=== PATIENT | female | born 1950 | race African-American/Black ===

== ENCOUNTER 2022-02-21 13:45 | Outpatient (CLI) | payer MEDICARE, SELFPAY | END 2022-02-21 13:46 | disposition home or self-care (01) | LOC: AMB 02-26 20:07 | PROVIDERS: Visit Provider Family Medicine | DX: R53.1 Weakness (principal) | CPT/HCPCS: A0998 ==

== ENCOUNTER 2022-03-02 09:55 | Outpatient (CLI) | payer MEDICARE, SELFPAY | END 2022-03-02 09:56 | disposition home or self-care (01) | LOC: AMB 03-03 08:47 | PROVIDERS: Visit Provider Emergency Medicine | DX: R53.1 Weakness (principal) | CPT/HCPCS: A0425; A0427 ==

== ENCOUNTER 2022-03-02 10:35 | Inpatient (IN) | payer MEDICARE, MEDICAID, SELFPAY ==
[2022-03-02] VITALS (21 sets, daily range): BP systolic 102–144; BP diastolic 66–115; PULSE 126–150; RESP 14–20; TEMP 36.8–36.9; O2SAT 92–100; BMI 51.5; BMI 58.2
--- NOTE | 2022-03-02 11:22 | ED.GENADULT ---
HPI - General Adult General Chief complaint: Weakness Stated complaint: Laying on floor for three days Time Seen by Provider: 03/02/22 11:13 History of Present Illness HPI narrative: This 71-year-old female comes in by ambulance. She states that she was sitting on the edge of her bed and accidentally slid out of the bed onto the floor. She did not have any injury. She states that this happened 3 days ago and since then was not able to get up. She was able to scoot around on the floor and today she decided herself to call the ambulance. She states that she had a similar circumstance about a week ago where she did call the ambulance and they helped her get up. She does not report any pain or injury. She states that as long as she is not on the floor she is able to carry out her normal activities of daily living. She lives in [place] in an apartment. She lives alone. She does not have any family around here but does have a friend her to. She did want to call anybody because she did not want to bother them. She does not have any complaints of pain or injury. She was unable to use the bathroom normally during these days of course so she soiled herself. She arrives with tachycardia and a rate around 140-150 beats per minute. She does not report any shortness of breath, lightheadedness, or chest pain. By nurse report she has not been to a doctor for about 20 years. Related Data Home Medications Medication Instructions Recorded Confirmed No Known Home Medications 03/02/22 03/02/22 Allergies Allergy/AdvReac Type Severity Reaction Status Date / Time No Known Drug Allergies Allergy Verified 03/02/22 11:08 Review of Systems Status of ROS: Reports: 10 or more systems reviewed and unremarkable except as noted in History and below Narrative: Constitutional: No fevers, no weight gain or loss. Eyes: No discharge. No vision changes. HENT: No congestion, no sore throat, no ear pain. Cardiovascular: No chest pain, no palpitations. Respiratory: No shortness of breath, no wheezes, no cough. Gastrointestinal: No abdominal pain, no vomiting, no diarrhea. Genitourinary: No dysuria, no hematuria. Musculoskeletal: Normal range of motion. Skin: No rashes, no pruritis. Neurological: No dizziness, weakness, sensory change, speech change. Endo/Heme/Allergies: No bruising or bleeding. No polydipsia. Pysch: no suicidality, no anxiety, no insomnia. All other systems reviewed and are negative. PFSH PFSH Social History Smoking Status: Never smoker Non-prescribed substance use: denies use Exam Narrative: Exam Narrative: Constitutional: Well-developed, well-nourished, no acute distress. HEENT: Normocephalic, atraumatic. Neck: Normal range of motion. Nontender. Supple. Heart: Regular. No murmurs. Tachycardia, rate 140-150 beats per minute. Intact distal pulses. Lungs: Clear to auscultation. No chest discomfort. No wheezes, rhonchi, or rales. Abdomen: Normal bowel sounds. Nontender. No rebound tenderness. Genitalia: Deferred. Back: No midline tenderness. Normal range of motion. Extremities: Normal range of motion. No injury. Bilateral pedal edema. Skin: Intact. No rash. Warm. No erythema or pallor. Neurologic: No altered sensation. No weakness. Alert and oriented. Psychiatric: No suicidality. No anxiety or depression. No insomnia. Nursing notes and vitals signs are reviewed. Const: Vital Signs, click to edit/add: Vital Signs - 24 hr 03/02/22 11:02 03/02/22 11:31 03/02/22 12:01 Temperature 98.5 F Pulse Rate 148 H 147 H Pulse Rate [Pulse Oximeter] 142 H Respiratory Rate 14 Blood Pressure 144/90 H 129/97 H Blood Pressure [Ri ght Forearm] 129/115 H Pulse Oximetry 98 Oxygen Delivery Me thod Room Air 03/02/22 12:28 03/02/22 12:30 03/02/22 12:31 Temperature Pulse Rate 150 H 143 H 148 H Pulse Rate [Pulse Oximeter] Respiratory Rate Blood Pressure 113/93 H Blood Pressure [Ri ght Forearm] Pulse Oximetry 95 98 98 Oxygen Delivery Me thod Course Vital Signs Vital signs: Initial Vital Signs Temperature 98.5 F 03/02/22 11:02 Temperature Source Temporal Artery Scan 03/02/22 11:02 Pulse Rate 142 H 03/02/22 11:02 Respiratory Rate 14 03/02/22 11:02 Blood Pressure 129/115 H 03/02/22 11:02 Blood Pressure Mean 119 03/02/22 11:02 Blood Pressure Position Supine 03/02/22 11:02 Pulse Oximetry 98 03/02/22 11:02 Oxygen Delivery Method 03/02/22 11:02 Vital Signs Temperature 98.5 F 03/02/22 11:02 Pulse Rate 142 H 03/02/22 11:02 Respiratory Rate 14 03/02/22 11:02 Blood Pressure 129/115 H 03/02/22 11:02 Pulse Oximetry 98 03/02/22 11:02 Oxygen Delivery Method 03/02/22 11:02 Temperature 98.5 F 03/02/22 11:02 Pulse Rate 148 H 03/02/22 12:31 Respiratory Rate 14 03/02/22 11:02 Blood Pressure 113/93 H 03/02/22 12:31 Pulse Oximetry 98 03/02/22 12:31 Oxygen Delivery Method 03/02/22 11:02 Medical Decision Making MDM Narrative Medical decision making narrative: This patient arrives by ambulance for evaluation of inability to get up and ambulate which she reports for the past 3 days. She slid to the floor and was unable to get up. She did screwed around on the floor and finally decided to call ambulance for assistance. She lives alone and states that her daily activities of living are properly maintained but she does not have enough strength to get up if she is on the floor. She arrives with tachycardia with a pulse around 140-150 beats per minute. Other vital signs are normal. She does not have any other complaints. An IV was established and labs were drawn. She received 20 mg of diltiazem which did not do anything to her rhythm. Later she received 6 mg followed by 12 mg of Adenocard. This temporarily slowed her rate to see more obvious atrial flutter with rapid ventricular response. She then received another dose of diltiazem 20 mg which again did not bring about any change in her rate. Lab results otherwise returned normal. There are few that are pending including magnesium and creatine kinase. She was able to move around by scooting on the floor in does not likely have the mechanism for rhabdomyolysis. Her renal function is intact. She is not a candidate for cardioversion as it is uncertain when her atrial flutter began. She did receive an oral dose of Eliquis and metoprolol 25 mg. I spoke with the hospitalist special education classroom aide, Dr. Mujica, who will arrange for admission into the hospital. Lab Data Labs: Lab Results 03/02/22 03/02/22 03/02/22 Range/Units 12:12 12:12 12:12 WBC 7.43 (4.50-11.00) K/uL RBC 5.18 (4.00-5.20) m/uL Hgb 13.8 (12.0-16.0) gm/dL Hct 44.2 (33.0-51.0) % MCV 85 (80-100) fL MCH 27 (26-34) pg MCHC 31 L (32-36) gm/dL RDW Coeff of Sal 14.4 (11.5-15.5) % Plt Count 176 (140-440) K/uL Neut % (Auto) 78.6 H (42.0-72.0) % Lymph % (Auto) 10.5 L (20-44) % [place] % (Auto) 10.4 (0.0-11.0) % Eos % (Auto) 0.3 (0.0-7.0) % Baso % (Auto) 0.1 (0.0-3.0) % Neut # (Auto) 5.80 (1.7-7.0) K/uL Lymph # (Auto) 0.80 L (0.90-2.90) K/uL [place] # (Auto) 0.80 (0.00-0.90) K/UL Eos # (Auto) 0.02 (0.00-0.50) K/uL Baso # (Auto) 0.01 (0.00-0.30) K/uL INR 1.21 H (0.91-1.10) Sodium 139 (135-149) mmol/L Potassium 5.2 H (3.6-5.1) mmol/L Chloride 103 (96-114) mmol/L Carbon Dioxide 27 (20-32) mmol/L BUN 16 (7-30) mg/dL Creatinine 0.8 (0.5-1.5) mg/dL Estimated Creat Clear 44.56 Estimated GFR 79 ml/min Glucose 92 (60-115) mg/dL Calcium 9.0 (8.4-10.6) mg/dL POC Troponin I (0.01-0.04) ng/ml 03/02/22 Range/Units 12:12 WBC (4.50-11.00) K/uL RBC (4.00-5.20) m/uL Hgb (12.0-16.0) gm/dL Hct (33.0-51.0) % MCV (80-100) fL MCH (26-34) pg MCHC (32-36) gm/dL RDW Coeff of Sal (11.5-15.5) % Plt Count (140-440) K/uL Neut % (Auto) (42.0-72.0) % Lymph % (Auto) (20-44) % [place] % (Auto) (0.0-11.0) % Eos % (Auto) (0.0-7.0) % Baso % (Auto) (0.0-3.0) % Neut # (Auto) (1.7-7.0) K/uL Lymph # (Auto) (0.90-2.90) K/uL [place] # (Auto) (0.00-0.90) K/UL Eos # (Auto) (0.00-0.50) K/uL Baso # (Auto) (0.00-0.30) K/uL INR (0.91-1.10) Sodium (135-149) mmol/L Potassium (3.6-5.1) mmol/L Chloride (96-114) mmol/L Carbon Dioxide (20-32) mmol/L BUN (7-30) mg/dL Creatinine (0.5-1.5) mg/dL Estimated Creat Clear Estimated GFR ml/min Glucose (60-115) mg/dL Calcium (8.4-10.6) mg/dL POC Troponin I 0.04 (0.01-0.04) ng/ml ECG Data Interpretation: Tachycardia due to atrial flutter or supraventricular tachycardia. Rate is 148 beats per minute. There are no specific ST or T-wave abnormalities. Discharge Plan Discharge Clinical Impression: Atrial flutter with rapid ventricular response Patient Disposition: Admitted As Inpatient Condition: Unchanged Prescriptions: No Action No Known Home Medications Follow Up/Referrals: Provider,Not a Local [Primary Care Provider] -
[2022-03-02] MEDS: dilTIAZem 5 MG/ML inj 20 MG IVP ×2 (11:49→12:52)
--- NOTE | 2022-03-02 12:01 | ED.NURSE ---
EMS IVF complete: 500mL normal saline.
--- NOTE | 2022-03-02 12:05 | ED.NURSE ---
Pt on vehicle monitor technician, cont pulse ox. VSS at this time. Afib/A flutter with RVR on monitor.
[2022-03-02] MEDS: ADENOSINE 6 MG/2ML INJ IVP (12:27)
[2022-03-02 12:32] LABS: Basophils Absolute Auto 0.01 K/uL (0.00-0.30); Basophils Percent Auto 0.1 % (0.0-3.0); Eosinophils Absolute Auto 0.02 K/uL (0.00-0.50); Eosinophils Percent Auto 0.3 % (0.0-7.0); Hematocrit 44.2 % (33.0-51.0); Hemoglobin* 13.8 gm/dL (12.0-16.0); Immature Granulocytes Abs Auto 0.01 K/uL (0.00-0.30); Immature Granulocytes Pct Auto 0.1 %; Lymphocytes Percent Auto 10.5 % (20-44); Mean Corpuscular HGB Conc 31 gm/dL (32-36); Mean Corpuscular Hemoglobin 27 pg (26-34); Mean Corpuscular Volume 85 fL (80-100); Monocytes Percent Auto 10.4 % (0.0-11.0); Neutrophils Percent Auto 78.6 % (42.0-72.0); Platelet Count* 176 K/uL (140-440); RDW Coefficient of Variation % 14.4 % (11.5-15.5); Red Blood Count 5.18 m/uL (4.00-5.20); White Blood Count* 7.43 K/uL (4.50-11.00)
[2022-03-02 12:33] LABS: Slide Review Reflex No
[2022-03-02] MEDS: ADENOSINE 6 MG/2ML INJ 12 MG IVP (12:33)
[2022-03-02 12:36] LABS: Troponin, Point-of-Care* 0.04 ng/ml (0.01-0.04)
[2022-03-02 12:44] LABS: Chloride* 103 mmol/L (96-114); Potassium* 5.2 mmol/L (3.6-5.1); Sodium* 139 mmol/L (135-149)
[2022-03-02 12:47] LABS: Blood Urea Nitrogen* 16 mg/dL (7-30); Carbon Dioxide* 27 mmol/L (20-32); Creatinine* 0.8 mg/dL (0.5-1.5); Est. Creatinine Clearance* 44.56; Estimated Glomerular Filt Rate 79 ml/min; Glucose* 92 mg/dL (60-115)
[2022-03-02 12:48] LABS: INR 1.21 (0.91-1.10)
--- NOTE | 2022-03-02 14:17 | W.PC.EDHO ---
Primary Language: Greek Preferred Language: Orientation Status: [X] Alert & Oriented [] Slight Confusion [] Known Dx Dementia Transfers By: [] Assist of 1 [] Assist of 2 [X] Lift Active Medications Discontinued Medications Generic Name Dose Route Start Last Admin Trade Name Niall PRN Reason Stop Dose Admin Adenosine 6 mg 03/02/22 12:03 03/02/22 12:27 Adenosine 6 Mg/2ml Inj IVP 03/02/22 12:04 6 mg ONCE ONE Administration Adenosine 12 mg 03/02/22 12:39 03/02/22 12:33 Adenosine 6 Mg/2ml Inj IVP 03/02/22 12:40 12 mg ONCE ONE Administration Diltiazem HCl 20 mg 03/02/22 11:18 03/02/22 11:49 Diltiazem 5 Mg/Ml Inj IVP 03/02/22 11:19 20 mg ONCE ONE Administration Diltiazem HCl 20 mg 03/02/22 12:39 03/02/22 12:52 Diltiazem 5 Mg/Ml Inj IVP 03/02/22 12:40 20 mg ONCE ONE Administration Sodium Chloride 500 mls @ 500 mls/hr 03/02/22 11:18 03/02/22 11:49 0.9 % Sodium Chloride 500 Ml IV 03/02/22 12:17 Not Given .Q1H ONE Description of Symptoms ED Triage Present Problem Pt slid from bed to floor, on floor x3 days, Description covered in feces. A + o x4. Lives in independent apt [place]. Numerous sores on back side. Has not been to doctor in 20 years. Stephanie Coma Scale [place] coma scale total score 15 IV Insertion/Site Date of IV Line Insertion [ 03/02/22 Left Hand] Oxygen Administration Pulse Oximetry 98 Pulse Oximetry 98 Pulse Oximetry 95 Pulse Oximetry 98 Oxygen Delivery Method Room Air Cardiac Monitoring EKG Method 12 Lead EKG Method 12 Lead
--- NOTE | 2022-03-02 14:18 | ED.NURSE ---
Numerous open, weeping wounds on sacrum, in folds, back of thighs, lower back. Oozing copious serousanguinous drainage from wounds.
[2022-03-02 14:21] LABS: SARS PCR* Negative SARS-CoV-2 (Negative)
[2022-03-02] MEDS: METOPROLOL TARTRATE 25 MG TABLET PO (14:30)
[2022-03-02] MEDS: APIXABAN 5 MG TABLET 10 MG PO (14:30)
--- NOTE | 2022-03-02 14:50 | ED.NURSE ---
Meal tray ordered, okay to eat per Dr. Moore.
--- NOTE | 2022-03-02 16:11 | ED.NURSE ---
Report given to SHARON Bonilla. Pt will go to [facility]. Telebox #[id number].
--- NOTE | 2022-03-02 16:20 | PM.IMHP1 ---
Hospitalist- H&P: HPI History of Present Illness Time Seen by Provider: 15:30 Date Seen: 03/02/22 Chief complaint: Laying on floor for three days Narrative: Emily Gonzalez is a 71 year old woman who presents via EMS for assessment after having been on the floor of her home for the past 3 days. Patient lives alone in her home. Does have homemaker who helps her. Has had longstanding evolving weakness such that it is difficult for her to get up if she is on the floor. About 5 years ago she fell to the floor and was unable to get up without help. This past week she has had 2 such falls, unable to get up without help. EMS helped her up the 1st time. She did not seek additional medical attention at that time. The 2nd time this happened she did not seek help but when her home health travel ot came in this morning her home health travel ot talked her into coming in for further assessment. Ambulance was summoned. She was brought in. Patient states that the 2 episodes she had within the last week warrant really falls. For the 1st episode, she slid off the edge of the sofa to the floor. For the 2nd episode, she slid off the edge of the bed to the floor. In both instances she had no other injury. Denies striking any part of her body other than landing on her buttock. Had no loss of consciousness. Had no syncope or near syncope. For the current episode she opted to not bother anyone and thus she excluded herself along the floor in her home for 3 days until her home health travel ot came in. She states she was unable to get to the toilet and thus she eliminated in her clothing. Denies any associated symptoms such as chest heaviness, pressure, tightness, or pain. Denies dyspnea at rest, paroxysmal nocturnal dyspnea, or orthopnea. Has baseline dyspnea with exertion which is no different than usual. Has noted over the last couple of weeks a sense of more swelling in her feet and ankles. Denies cough. Denies fevers, rigors, diaphoresis. Denies palpitations or chest fluttering. Review of Systems Status of ROS: Reports: 10 or more systems reviewed and unremarkable except as noted in History and below Narrative: Has not sought medical attention for more than 30 years. She is retired. Does not have a lot of social contacts. Has no family members whom she is in touch with. Has had no children. Interacts with her home health travel ot whom she considers her friend. Her home makers name is Rahel Walsh, cell phone [phone]. Patient designates Rahel as her power of live truck technician for health should that be required. Patient states that should she have car demise she would like us to try to resuscitate her, but not force the issue should she not be responsive. Additionally she states unequivocally that she does not want to be kept alive in a persistent vegetative state. Acknowledges waking up in the day, mostly reading and making time to go to the bathroom and make her cell something to eat. She has not been taking care of her home care. Does have a homemaker does this for her. slat basket maker helper machine also does her shopping for her. Satisfied with bowel and bladder elimination. Denies having chronic wounds. Generally able to walk around the house as much as she wants to. Has dyspnea with exertion. Denies dysuria, urgency, frequency, hematuria. Denies diarrhea or constipation. Has had no trauma, injury, or blood loss. No travel. [facility] Medical History Lymphedema associated with obesity Obesity Weakness generalized Social History Smoking Status: Never smoker Non-prescribed substance use: denies use Meds Home Medications and Allergies Home Medications Medication Instructions Recorded Confirmed Type No Known Home Medications 03/02/22 03/02/22 History Allergies Allergy/AdvReac Type Severity Reaction Status Date / Time No Known Drug Allergies Allergy Verified 03/02/22 11:08 Exam Narrative: Exam Narrative: Friendly, cooperative. Articulate. Alert, oriented to self, place, time. Does not seem particularly concerned about the events of the last few days. This is concerning. Vision and hearing are preserved grossly. Dentition in fair repair. Dry buccal mucosa. Neck is supple. No JVD hepatojugular reflux. Midline trachea. No lymphadenopathy in the pre or postauricular chains, anterior-posterior cervical chains, supra or infraclavicular fossa, submandibular or submental fossa, or axilla bilaterally. Lungs clear to auscultation. No wheezing, rhonchi, or rales. No CVA tenderness. She declines lung me to see her buttock at this time. Will try again. Heart tones with tachycardia. Distant tones. Obese abdomen. Has panniculus. Active bowel sounds. Soft, nontender. Lymphedema of thighs bilaterally. Edema of feet and pretibial area. Palpable pulses upper and lower extremities. Aside from generalized weakness, no focal motor deficits. Const: Vital Signs, click to edit/add: Vital Signs - 24 hr 03/02/22 11:02 03/02/22 11:31 03/02/22 12:01 Temperature 98.5 F Pulse Rate 148 H 147 H Pulse Rate [Pulse Oximeter] 142 H Respiratory Rate 14 Blood Pressure 144/90 H 129/97 H Blood Pressure [Ri ght Forearm] 129/115 H Pulse Oximetry 98 Oxygen Delivery Me thod Room Air 03/02/22 12:28 03/02/22 12:30 03/02/22 12:31 Temperature Pulse Rate 150 H 143 H 148 H Pulse Rate [Pulse Oximeter] Respiratory Rate Blood Pressure 113/93 H Blood Pressure [Ri ght Forearm] Pulse Oximetry 95 98 98 Oxygen Delivery Me thod 03/02/22 12:32 03/02/22 13:00 03/02/22 13:01 Temperature Pulse Rate 148 H 147 H 142 H Pulse Rate [Pulse Oximeter] Respiratory Rate Blood Pressure 130/83 Blood Pressure [Ri ght Forearm] Pulse Oximetry 96 100 94 Oxygen Delivery La thod 03/02/22 13:31 03/02/22 14:07 03/02/22 14:30 Temperature Pulse Rate 145 H 148 H 136 H Pulse Rate [Pulse Oximeter] Respiratory Rate Blood Pressure 137/86 124/88 Blood Pressure [Ri ght Forearm] Pulse Oximetry 100 97 94 Oxygen Delivery Me thod 03/02/22 14:32 03/02/22 14:33 03/02/22 15:00 Temperature Pulse Rate 150 H 149 H 146 H Pulse Rate [Pulse Oximeter] Respiratory Rate Blood Pressure 126/96 H Blood Pressure [Ri ght Forearm] Pulse Oximetry 94 100 98 Oxygen Delivery Me thod Documenting provider has reviewed patient's vital signs: yes Hospitalist - H&P: Result Labs Labs: Short CBC 03/02/22 Range/Units 12:12 WBC 7.43 (4.50-11.00) K/uL Hgb 13.8 (12.0-16.0) gm/dL Hct 44.2 (33.0-51.0) % Plt Count 176 (140-440) K/uL [facility] 03/02/22 12:12 Sodium 139 Potassium 5.2 H Chloride 103 Carbon Dioxide 27 BUN 16 Creatinine 0.8 Glucose 92 Calcium 9.0 Assessment and Plan Assessment and plan (1) Fall: Status: Acute (2) Weakness generalized: Status: Acute (3) Self neglect: Status: Acute (4) Pressure ulcer of buttock: Status: Acute (5) Incontinence associated dermatitis: Status: Acute (6) Atrial flutter with rapid ventricular response: Status: Acute Assessment and Plan: 1. Check TSH and BNP. Also check LFTs and other labs. 2. Diltiazem IV drip. Oral metoprolol. Oral digoxin. Consider amiodarone drip. Continue with apixaban anticoagulation therapy. In time may need to consider radiofrequency ablation depending on her response. 3. Telemetry, serial troponin I's. 4. Will reassess wounds. Will consult General surgery to assist with assessment and management of wounds as well. 5. Offloading efforts including alternating pressure mattress 6. PT, OT consultation. 7. supervisor customer services to assist. Anticipate she will need transitional care services for a period of time beyond hospitalization. 8. Admit to inpatient service. 9. Answered patient's questions to her satisfaction. Patient agreeable. (7) Lymphedema associated with obesity: Status: Acute (8) Obesity: Status: Acute
[2022-03-02 16:34] LABS: Creatine Kinase* 52 U/L (41-117); Magnesium* 1.8 mg/dL (1.5-2.6)
[2022-03-02 17:14] LABS: C Reactive Protein* 8.9 mg/dL (0.5-1.0)
[2022-03-02 17:33] LABS: Albumin* 3.1 g/dL (3.3-5.0)
[2022-03-02 17:36] LABS: Alanine Aminotransferase* 32 U/L (4-35); Alkaline Phosphatase* 56 U/L (40-150); Aspartate Amino Transferase* 25 U/L (12-35); Bilirubin Direct* 0.4 mg/dL (0.0-0.5); Bilirubin Total* 0.9 mg/dL (0.1-1.5); Magnesium* 1.8 mg/dL (1.5-2.6); Phosphorus* 2.9 mg/dL (2.5-4.5); Total Protein* 6.8 g/dL (6.0-8.3)
[2022-03-02 17:38] LABS: Hemoglobin A1C* 5.35 % (0-5.6)
[2022-03-02] MEDS: METOPROLOL TARTRATE 25 MG TABLET 12.5 MG PO ×2 (17:46→22:20)
[2022-03-02 17:47] LABS: Troponin I* 0.03 ng/mL (0.01-0.04)
[2022-03-02 17:48] LABS: NT Pro B Type NatriureticPept* 1850 pg/mL
[2022-03-02] MEDS: dilTIAZem HCL 125 MG in 0.9 % SODIUM CHLORIDE 100 ml 100 ML IVPB (18:00)
[2022-03-02] MEDS: SODIUM CHLORIDE 0.9 % (FLUSH) 10 ML SYRINGE 5 ML IVF (18:02)
[2022-03-02] MEDS: DIGOXIN 250 MCG TABLET PO (18:53)
--- NOTE | 2022-03-02 19:20 | PC.NURSE ---
Pt up to floor asking to use commode. Heavy assist of 3 with pivot transfer used. Suggest use of ceiling lift for all transfers due to patients weakness and inability to help in repositioning. Pt denies chest pain, SOB, or feeling of racing heart. Telemetry shows HR in 140's. See MAR for medication administration. Acute and chronic wounds to buttocks. Consult to general surgery for 03/03/22; NPO at midnight.
[2022-03-02] MEDS: APIXABAN 5 MG TABLET PO (22:20)
[2022-03-02 23:33] LABS: HCO3 VBG 31 mmol/L (21-28); PCO2 VBG 45 mmHG (40-50); PO2 VBG 47.6 mmHG (25-47); pH VBG 7.449 (7.32-7.43)
[2022-03-03] VITALS (11 sets, daily range): BP systolic 99–138; BP diastolic 59–74; PULSE 71–138; RESP 18–20; TEMP 36.6–37; O2SAT 91–95; BMI 58.1
[2022-03-03] MEDS: 0.9 % SODIUM CHLORIDE 250 ml IV ×2 (00:50→18:04)
[2022-03-03] MEDS: PIPERACILLIN/TAZOBACTAM 3.375 GM in 0.9 % SODIUM CHLORIDE Mini-bag 100 ML IVPB ×4 (00:51→18:59)
[2022-03-03] MEDS: DIGOXIN 250 MCG TABLET PO ×3 (02:06→12:51)
[2022-03-03] MEDS: ACETAMINOPHEN 325 MG TABLET 650 MG PO (02:06)
[2022-03-03] MEDS: 0.9 % SODIUM CHLORIDE 500 ML 500 ML IV (02:07)
[2022-03-03 05:06] LABS: Appearance Urine Cloudy (Clear); Bilirubin Urine 1+ (Negative); Blood Urine 3+ (Negative); Color Urine Yellow (Yellow); Glucose Urine Negative (Negative); Ketones Urine Trace (Negative); Leukocyte Esterase Urine Trace (Negative); Nitrite Urine Negative (Negative); Protein Urine Trace (Negative); Specific Gravity Urine 1.015 (1.000-1.030)
[2022-03-03 05:15] LABS: Bacteria Urine Few; Squamous Epithelial Cell Urine Few (None-Few)
[2022-03-03] MEDS: dilTIAZem HCL 125 MG in 0.9 % SODIUM CHLORIDE 100 ml 100 ML 10 MG IVPB ×2 (05:27→18:04)
[2022-03-03] MEDS: METOPROLOL TARTRATE 25 MG TABLET 12.5 MG PO ×2 (05:49→10:45)
--- NOTE | 2022-03-03 06:46 | PC.NURSE ---
Shift note: Wound cleansing performed and irrigated with normal saline, surrounding tissue cleaned with soap and water. Lower extremities oozing fluids and some blood, soaking pads placed under those areas, wounds are open to air. Assist in bed of 3 minimum. Ghosh cath placed, is intact and draining. Pt is afebrile, HR down to 70-80bpm this morning from 140ies in PM. Pt is continue on Dilt drip
[2022-03-03 07:05] LABS: Hematocrit 40.6 % (33.0-51.0); Hemoglobin* 12.7 gm/dL (12.0-16.0); Mean Corpuscular HGB Conc 31 gm/dL (32-36); Mean Corpuscular Hemoglobin 27 pg (26-34); Mean Corpuscular Volume 85 fL (80-100); Platelet Count* 177 K/uL (140-440); White Blood Count* 6.13 K/uL (4.50-11.00)
[2022-03-03 07:06] LABS: Slide Review Reflex No
[2022-03-03 07:17] LABS: Chloride* 107 mmol/L (96-114); Potassium* 3.5 mmol/L (3.6-5.1); Sodium* 139 mmol/L (135-149)
[2022-03-03 07:20] LABS: Creatinine* 0.8 mg/dL (0.5-1.5); Est. Creatinine Clearance* 44.56; Estimated Glomerular Filt Rate 79 ml/min
[2022-03-03 07:21] LABS: Blood Urea Nitrogen* 15 mg/dL (7-30); Calcium* 8.3 mg/dL (8.4-10.6); Carbon Dioxide* 31 mmol/L (20-32); Glucose* 112 mg/dL (60-115); HDL Cholesterol* 26 mg/dL (>=50); Triglycerides* 90 mg/dL (40-149)
[2022-03-03 07:23] LABS: C Reactive Protein* 8.8 mg/dL (0.5-1.0)
--- NOTE | 2022-03-03 07:39 | P.IMPN_ITS ---
Progress Note: A&P Assessment and plan (1) Atrial flutter with rapid ventricular response: Problem details: - transitioning to digoxin and metoprolol from diltiazem GTT - TTE today Status: Acute (2) Fall: Status: Acute (3) Weakness generalized: Problem details: - PT and OT following Status: Acute (4) Pressure ulcer of buttock: Problem details: - General surgery following Status: Acute (5) Incontinence associated dermatitis: Status: Acute Plan - per above - Eliquis for prophylaxis; on hold given General Surgery intervention - may require TCU stay pending evaluations by PT and OT Subjective Date Seen: 03/03/22 Interval history: No acute events overnight. Patient tolerated oral Dig Q6 in addition to tapering Diltiazem gtt. Her heart rate is currently controlled and she denies chest pain or dyspnea. Dr. Rice from General surgery will be seeing patient today given her buttock wounds. Exam Narrative: Exam Narrative: GEN: Alert and oriented, laying comfortably in bed and answering questions appropriately HEENT: EOMIs bilaterally, no scleral icterus CV: Rate controlled atrial fibrillation R: LCTA bilaterally without concerning wheezing, air movement adequate Ext: Edema of extremities noted Skin: Skin wounds not formally examined (patient seen by General surgery this morning for bedside I&D, movement has been quite painful). Neuro: No focal deficits Psych: Appropriate Const: Vital Signs, click to edit/add: Vital Signs - 24 hr 03/02/22 11:02 03/02/22 11:31 03/02/22 12:01 Temperature 98.5 F Pulse Rate 148 H 147 H Pulse Rate [Pulse Oximeter] 142 H Respiratory Rate 14 Blood Pressure 144/90 H 129/97 H Blood Pressure [Le ft Arm] Blood Pressure [Ri ght Forearm] 129/115 H Pulse Oximetry 98 Oxygen Delivery Me thod Room Air 03/02/22 12:28 03/02/22 12:30 03/02/22 12:31 Temperature Pulse Rate 150 H 143 H 148 H Pulse Rate [Pulse Oximeter] Respiratory Rate Blood Pressure 113/93 H Blood Pressure [Le ft Arm] Blood Pressure [Ri ght Forearm] Pulse Oximetry 95 98 98 Oxygen Delivery Me [facility] 03/02/22 12:32 03/02/22 13:00 03/02/22 13:01 Temperature Pulse Rate 148 H 147 H 142 H Pulse Rate [Pulse Oximeter] Respiratory Rate Blood Pressure 130/83 Blood Pressure [Le ft Arm] Blood Pressure [Ri ght Forearm] Pulse Oximetry 96 100 [facility] 13:31 03/02/22 14:07 03/02/22 14:30 Temperature Pulse Rate 145 H 148 H 136 H Pulse Rate [Pulse Oximeter] Respiratory Rate Blood Pressure 137/86 124/88 Blood Pressure [Le ft Arm] Blood Pressure [Ri ght Forearm] Pulse Oximetry 100 97 94 [facility] 03/02/22 14:32 03/02/22 14:33 03/02/22 15:00 Temperature Pulse Rate 150 H 149 H 146 H Pulse Rate [Pulse Oximeter] Respiratory Rate Blood Pressure 126/96 H Blood Pressure [Le ft Arm] Blood Pressure [Ri ght Forearm] Pulse Oximetry 94 100 98 Oxygen Delivery [facility] 03/02/22 16:20 03/02/22 17:00 03/02/22 17:00 Temperature 98.5 F 98.3 F Pulse Rate 141 H Pulse Rate [Pulse Oximeter] 142 H 142 H Respiratory Rate 18 20 Blood Pressure Blood Pressure [Le ft Arm] 114/67 Blood Pressure [Ri ght Forearm] 126/96 H Pulse Oximetry 93 Oxygen Delivery [facility] Room Air 03/02/22 18:00 03/02/22 18:53 03/02/22 19:30 Temperature 98.3 F Pulse Rate 150 H Pulse Rate [Pulse Oximeter] 142 H Respiratory Rate 18 Blood Pressure Blood Pressure [Le ft Arm] 118/72 Blood Pressure [Ri ght Forearm] Pulse Oximetry 93 92 Oxygen Delivery [facility] Room Air Room Air 03/02/22 23:00 03/02/22 23:00 03/02/22 23:00 Temperature 98.4 F Pulse Rate 133 H Pulse Rate [Pulse Oximeter] 126 H Respiratory Rate 20 Blood Pressure Blood Pressure [Le ft Arm] 102/66 Blood Pressure [Ri ght Forearm] Pulse Oximetry 94 94 Oxygen Delivery [facility] Room Air Room Air 03/03/22 00:21 03/03/22 02:06 03/03/22 04:00 Temperature 98.2 F Pulse Rate 113 H Pulse Rate [Pulse Oximeter] 88 71 Respiratory Rate 20 18 Blood Pressure Blood Pressure [Le ft Arm] 99/61 115/74 Blood Pressure [Ri ght Forearm] Pulse Oximetry 91 Oxygen Delivery Me [facility] Room Air 03/03/22 07:26 Temperature Pulse Rate 111 H Pulse Rate [Pulse Oximeter] Respiratory Rate Blood Pressure Blood Pressure [Le ft Arm] Blood Pressure [Ri ght Forearm] Pulse Oximetry Oxygen Delivery Me thod Labs Labs: Laboratory Results - last 24 hr 03/02/22 03/02/22 03/02/22 11:54 12:12 12:12 WBC 7.43 RBC 5.18 Hgb 13.8 Hct 44.2 MCV 85 MCH 27 MCHC 31 L RDW Coeff of Sal 14.4 Plt Count 176 Neut % (Auto) 78.6 H Lymph % (Auto) 10.5 L [place] % (Auto) 10.4 Eos % (Auto) 0.3 Baso % (Auto) 0.1 Neut # (Auto) 5.80 Lymph # (Auto) 0.80 L [place] # (Auto) 0.80 Eos # (Auto) 0.02 Baso # (Auto) 0.01 INR VBG pH VBG pCO2 VBG pO2 VBG HCO3 Sodium 139 Potassium 5.2 H Chloride 103 Carbon Dioxide 27 BUN 16 Creatinine 0.8 Estimated Creat Clear 44.56 Estimated GFR 79 Glucose 92 Hemoglobin A1c Calcium 9.0 Phosphorus Magnesium 1.8 Total Bilirubin Direct Bilirubin AST ALT Alkaline Phosphatase Total Creatine Kinase 52 Troponin I C-Reactive Protein 8.9 H NT-Pro-B Natriuret Pep Total Protein Albumin Triglycerides HDL Cholesterol TSH Urine Color Urine Appearance Urine pH Ur Specific [place] Urine Protein Urine Glucose (UA) Urine Ketones Urine Blood Urine Nitrite Urine Bilirubin Urine Urobilinogen Ur Leukocyte Esterase Urine RBC Urine WBC Ur Squamous Epith Cells Urine Bacteria SARS-CoV-2 (PCR) Negative SARS-CoV-2 POC Troponin I 03/02/22 03/02/22 03/02/22 12:12 12:12 17:07 WBC RBC Hgb Hct MCV MCH MCHC RDW Coeff of Sal Plt Count Neut % (Auto) Lymph % (Auto) [place] % (Auto) Eos % (Auto) Baso % (Auto) Neut # (Auto) Lymph # (Auto) [place] # (Auto) Eos # (Auto) Baso # (Auto) INR 1.21 H VBG pH VBG pCO2 VBG pO2 VBG HCO3 Sodium Potassium Chloride Carbon Dioxide BUN Creatinine Estimated Creat Clear Estimated GFR Glucose Hemoglobin A1c Calcium Phosphorus 2.9 Magnesium Total Bilirubin 0.9 Direct Bilirubin 0.4 AST 25 ALT 32 Alkaline Phosphatase 56 Total Creatine Kinase Troponin I C-Reactive Protein NT-Pro-B Natriuret Pep Total Protein 6.8 Albumin 3.1 L Triglycerides HDL Cholesterol TSH Urine Color Urine Appearance Urine pH Ur Specific [place] Urine Protein Urine Glucose (UA) Urine Ketones Urine Blood Urine Nitrite Urine Bilirubin Urine Urobilinogen Ur Leukocyte Esterase Urine RBC Urine WBC Ur Squamous Epith Cells Urine Bacteria SARS-CoV-2 (PCR) POC Troponin I 0.04 03/02/22 03/02/22 03/02/22 17:07 17:07 17:07 WBC RBC Hgb Hct MCV MCH MCHC RDW Coeff of Sal Plt Count Neut % (Auto) Lymph % (Auto) [place] % (Auto) Eos % (Auto) Baso % (Auto) Neut # (Auto) Lymph # (Auto) [place] # (Auto) Eos # (Auto) Baso # (Auto) INR VBG pH VBG pCO2 VBG pO2 VBG HCO3 Sodium Potassium Chloride Carbon Dioxide BUN Creatinine Estimated Creat Clear Estimated GFR Glucose Hemoglobin A1c 5.35 Calcium Phosphorus Magnesium 1.8 Total Bilirubin Direct Bilirubin AST ALT Alkaline Phosphatase Total Creatine Kinase Troponin I 0.03 C-Reactive Protein NT-Pro-B Natriuret Pep 1850 Total Protein Albumin Triglycerides HDL Cholesterol TSH 3.070 Urine Color Urine Appearance Urine pH Ur Specific [place] Urine Protein Urine Glucose (UA) Urine Ketones Urine Blood Urine Nitrite Urine Bilirubin Urine Urobilinogen Ur Leukocyte Esterase Urine RBC Urine WBC Ur Squamous Epith Cells Urine Bacteria SARS-CoV-2 (PCR) POC Troponin I 03/02/22 03/03/22 03/03/22 23:25 04:00 06:38 WBC RBC Hgb Hct MCV MCH MCHC RDW Coeff of Sal Plt Count Neut % (Auto) Lymph % (Auto) [place] % (Auto) Eos % (Auto) Baso % (Auto) Neut # (Auto) Lymph # (Auto) [place] # (Auto) Eos # (Auto) Baso # (Auto) INR VBG pH 7.449 H VBG pCO2 45 VBG pO2 47.6 H VBG HCO3 31 H Sodium 139 Potassium 3.5 L Chloride 107 Carbon Dioxide 31 BUN 15 Creatinine 0.8 Estimated Creat Clear 44.56 Estimated GFR 79 Glucose 112 Hemoglobin A1c Calcium 8.3 L Phosphorus Magnesium Total Bilirubin Direct Bilirubin AST ALT Alkaline Phosphatase Total Creatine Kinase Troponin I C-Reactive Protein 8.8 H NT-Pro-B Natriuret Pep Total Protein Albumin Triglycerides 90 HDL Cholesterol 26 L TSH Urine Color Yellow Urine Appearance Cloudy A Urine pH 6.0 Ur Specific [place] 1.015 Urine Protein Trace A Urine Glucose (UA) Negative Urine Ketones Trace A Urine Blood 3+ A Urine Nitrite Negative Urine Bilirubin 1+ A Urine Urobilinogen 2.0 A Ur Leukocyte Esterase Trace A Urine RBC 5-10 A Urine WBC 2-5 Ur Squamous Epith Cells Few Urine Bacteria Few A SARS-CoV-2 (PCR) POC Troponin I 03/03/22 06:38 WBC 6.13 RBC 4.80 Hgb 12.7 Hct 40.6 MCV 85 MCH 27 MCHC 31 L RDW Coeff of Sal Plt Count 177 Neut % (Auto) Lymph % (Auto) [place] % (Auto) Eos % (Auto) Baso % (Auto) Neut # (Auto) Lymph # (Auto) [place] # (Auto) Eos # (Auto) Baso # (Auto) INR VBG pH VBG pCO2 VBG pO2 VBG HCO3 Sodium Potassium Chloride Carbon Dioxide BUN Creatinine Estimated Creat Clear Estimated GFR Glucose Hemoglobin A1c Calcium Phosphorus Magnesium Total Bilirubin Direct Bilirubin AST ALT Alkaline Phosphatase Total Creatine Kinase Troponin I C-Reactive Protein NT-Pro-B Natriuret Pep Total Protein Albumin Triglycerides HDL Cholesterol TSH Urine Color Urine Appearance Urine pH Ur Specific [place] Urine Protein Urine Glucose (UA) Urine Ketones Urine Blood Urine Nitrite Urine Bilirubin Urine Urobilinogen Ur Leukocyte Esterase Urine RBC Urine WBC Ur Squamous Epith Cells Urine Bacteria SARS-CoV-2 (PCR) POC Troponin I
[2022-03-03] MEDS: ACETAMINOPHEN 325 MG TABLET 975 MG PO ×2 (08:43→23:30)
[2022-03-03] MEDS: SODIUM CHLORIDE 0.9 % (FLUSH) 10 ML SYRINGE 5 ML IVF ×2 (08:45→23:32)
[2022-03-03] MEDS: lidocaine HCL 2 % JELLY (TOP) STERILE 6 ML TOPICAL (09:20)
--- NOTE | 2022-03-03 09:42 | P.GSCN_ITS ---
History of Present Illness Consult details Date Seen: 03/03/22 Consult date: 03/03/22 Narrative: Patient is a very anneliese 71-year-old female, who was brought into the emergency department after falling and being on the floor for home for the past 3 days. She does live alone and reports that over the last week she has been getting progressively weaker. She also suffers from morbid obesity. She has had falls in the past, but this was the 1st time that she was unable to get back up. She does admit to incontinence of urine and stool during that time. Yesterday it was noted during her admission that she had decubitus ulcers of right and left buttock. She does report pain to this area yesterday, although this has improved since her admission. No fevers or chills overnight. No other concerns. She does not see any doctor regularly. She was started on Eliquis for a diagnosis of atrial flutter. Her atrial flutter is currently being controlled on a diltiazem drip. Review of Systems Status of ROS: Reports: 6 or more systems reviewed and unremarkable except as noted in History and below [facility] Medical History Lymphedema associated with obesity Obesity Weakness generalized Social History Highest level of school completed/degree received: some college, no degree Smoking Status: Never smoker Do you use any of these nicotine containing products: None Second hand tobacco smoke exposure: No How often do you have a drink containing alcohol: monthly or less Alcohol type details: no alcohol for past 5 years; daily drinker for 2 years before that AUDIT-C Alcohol total score: 1 Non-prescribed substance use: denies use Caffeine: Yes (2 cups of coffee daily) service: No Meds Home Medications and Allergies Home Medications Medication Instructions Recorded Confirmed Type No Known Home Medications 03/02/22 03/02/22 History Allergies Allergy/AdvReac Type Severity Reaction Status Date / Time No Known Drug Allergies Allergy Verified 03/02/22 11:08 Exam Narrative: Exam Narrative: General: Alert and oriented, no acute distress. Morbid obesity lying in bed comfortably. Respiratory: Equal breath rise bilaterally, maintained on room air CV: Irregularly irregular, rate regular Genitourinary: Ghosh catheter in place. On the left buttock localized area of scattered stage II ulceration. Right buttock with larger area, measuring approximately 7 x 10 cm stage III full-thickness ulceration with overlying eschar. Some foul smell to the tissue. The central aspect does extend deeper into subcutaneous tissue. No undrained pockets of fluid and no significant damaso neling appreciated. The area is painful for the patient during debridement at bedside. Const: Vital Signs, click to edit/add: Vital Signs - 24 hr 03/02/22 11:02 03/02/22 11:31 03/02/22 12:01 Temperature 98.5 F Pulse Rate 148 H 147 H Pulse Rate [Pulse Oximeter] 142 H Respiratory Rate 14 Blood Pressure 144/90 H 129/97 H Blood Pressure [Le ft Arm] Blood Pressure [Ri ght Forearm] 129/115 H Pulse Oximetry 98 [facility] 03/02/22 12:28 03/02/22 12:30 03/02/22 12:31 Temperature Pulse Rate 150 H 143 H 148 H Pulse Rate [Pulse Oximeter] Respiratory Rate Blood Pressure 113/93 H Blood Pressure [Le ft Arm] Blood Pressure [Ri ght Forearm] Pulse Oximetry 95 98 98 [facility] 03/02/22 12:32 03/02/22 13:00 03/02/22 13:01 Temperature Pulse Rate 148 H 147 H 142 H Pulse Rate [Pulse Oximeter] Respiratory Rate Blood Pressure 130/83 Blood Pressure [Le ft Arm] Blood Pressure [Ri ght Forearm] Pulse Oximetry 96 100 94 [facility] 03/02/22 13:31 03/02/22 14:07 03/02/22 14:30 Temperature Pulse Rate 145 H 148 H 136 H Pulse Rate [Pulse Oximeter] Respiratory Rate Blood Pressure 137/86 124/88 Blood Pressure [Le ft Arm] Blood Pressure [Ri ght Forearm] Pulse Oximetry 100 97 94 [facility] 03/02/22 14:32 03/02/22 14:33 03/02/22 15:00 Temperature Pulse Rate 150 H 149 H 146 H Pulse Rate [Pulse Oximeter] Respiratory Rate Blood Pressure 126/96 H Blood Pressure [Le ft Arm] Blood Pressure [Ri ght Forearm] Pulse Oximetry 94 100 98 [facility] 03/02/22 16:20 03/02/22 17:00 03/02/22 17:00 Temperature 98.5 F 98.3 F Pulse Rate 141 H Pulse Rate [Pulse Oximeter] 142 H 142 H Respiratory Rate 18 20 Blood Pressure Blood Pressure [Le ft Arm] 114/67 Blood Pressure [Ri ght Forearm] 126/96 H Pulse Oximetry 93 Oxygen Delivery [facility] Room Air 03/02/22 18:00 03/02/22 18:53 03/02/22 19:30 Temperature 98.3 F Pulse Rate 150 H Pulse Rate [Pulse Oximeter] 142 H Respiratory Rate 18 Blood Pressure Blood Pressure [Le ft Arm] 118/72 Blood Pressure [Ri ght Forearm] Pulse Oximetry 93 92 [facility] Room Air 03/02/22 23:00 03/02/22 23:00 03/02/22 23:00 Temperature 98.4 F Pulse Rate 133 H Pulse Rate [Pulse Oximeter] 126 H Respiratory Rate 20 Blood Pressure Blood Pressure [Le ft Arm] 102/66 Blood Pressure [Ri ght Forearm] Pulse Oximetry 94 94 [facility] Room Air 03/03/22 00:21 03/03/22 02:06 03/03/22 04:00 Temperature 98.2 F Pulse Rate 113 H Pulse Rate [Pulse Oximeter] 88 71 Respiratory Rate 20 18 Blood Pressure Blood Pressure [Le ft Arm] 99/61 115/74 Blood Pressure [Ri ght Forearm] Pulse Oximetry 91 [facility] 03/03/22 07:26 03/03/22 07:56 03/03/22 07:40 Temperature Pulse Rate 111 H 89 Pulse Rate [Pulse Oximeter] 111 H Respiratory Rate 20 Blood Pressure Blood Pressure [Le ft Arm] Blood Pressure [Ri ght Forearm] Pulse Oximetry Oxygen Delivery [facility] 03/03/22 07:40 03/03/22 07:40 Temperature 97.9 F Pulse Rate Pulse Rate [Pulse Oximeter] 111 H Respiratory Rate 20 20 Blood Pressure Blood Pressure [Le ft Arm] 99/59 L Blood Pressure [Ri ght Forearm] Pulse Oximetry 94 94 Oxygen Delivery [facility] Room Air Room Air Results Labs Labs: Abnormal lab results 03/02/22 03/02/22 03/02/22 Range/Units 12:12 12:12 12:12 MCHC 31 L (32-36) gm/dL Neut % (Auto) 78.6 H (42.0-72.0) % Lymph % (Auto) 10.5 L (20-44) % Lymph # (Auto) 0.80 L (0.90-2.90) K/uL INR 1.21 H (0.91-1.10) VBG pH (7.32-7.43) VBG pO2 (25-47) mmHG VBG HCO3 (21-28) mmol/L Potassium 5.2 H (3.6-5.1) mmol/L Calcium (8.4-10.6) mg/dL C-Reactive Protein 8.9 H (0.5-1.0) mg/dL Albumin (3.3-5.0) g/dL HDL Cholesterol (>=50) mg/dL Urine Appearance (Clear) Urine Protein (Negative) Urine Ketones (Negative) Urine Blood (Negative) Urine Bilirubin (Negative) Urine Urobilinogen (0.2-1.0) Ur Leukocyte Esterase (Negative) Urine RBC (0-2) Urine Bacteria (None) 03/02/22 03/02/22 03/03/22 Range/Units 17:07 23:25 04:00 MCHC (32-36) gm/dL Neut % (Auto) (42.0-72.0) % Lymph % (Auto) (20-44) % Lymph # (Auto) (0.90-2.90) K/uL INR (0.91-1.10) VBG pH 7.449 H (7.32-7.43) VBG pO2 47.6 H (25-47) mmHG VBG HCO3 31 H (21-28) mmol/L Potassium (3.6-5.1) mmol/L Calcium (8.4-10.6) mg/dL C-Reactive Protein (0.5-1.0) mg/dL Albumin 3.1 L (3.3-5.0) g/dL HDL Cholesterol (>=50) mg/dL Urine Appearance Cloudy A (Clear) Urine Protein Trace A (Negative) Urine Ketones Trace A (Negative) Urine Blood 3+ A (Negative) Urine Bilirubin 1+ A (Negative) Urine Urobilinogen 2.0 A (0.2-1.0) Ur Leukocyte Esterase Trace A (Negative) Urine RBC 5-10 A (0-2) Urine Bacteria Few A (None) 03/03/22 03/03/22 Range/Units 06:38 06:38 MCHC 31 L (32-36) gm/dL Neut % (Auto) (42.0-72.0) % Lymph % (Auto) (20-44) % Lymph # (Auto) (0.90-2.90) K/uL INR (0.91-1.10) VBG pH (7.32-7.43) VBG pO2 (25-47) mmHG VBG HCO3 (21-28) mmol/L Potassium 3.5 L (3.6-5.1) mmol/L Calcium 8.3 L (8.4-10.6) mg/dL C-Reactive Protein 8.8 H (0.5-1.0) mg/dL Albumin (3.3-5.0) g/dL HDL Cholesterol 26 L (>=50) mg/dL Urine Appearance (Clear) Urine Protein (Negative) Urine Ketones (Negative) Urine Blood (Negative) Urine Bilirubin (Negative) Urine Urobilinogen (0.2-1.0) Ur Leukocyte Esterase (Negative) Urine RBC (0-2) Urine Bacteria (None) Diabetes panel 03/02/22 03/02/22 03/02/22 Range/Units 12:12 17:07 17:07 Sodium 139 (135-149) mmol/L Potassium 5.2 H (3.6-5.1) mmol/L Chloride 103 (96-114) mmol/L Carbon Dioxide 27 (20-32) mmol/L BUN 16 (7-30) mg/dL Creatinine 0.8 (0.5-1.5) mg/dL Glucose 92 (60-115) mg/dL Hemoglobin A1c 5.35 (0-5.6) % Calcium 9.0 (8.4-10.6) mg/dL AST 25 (12-35) U/L ALT 32 (4-35) U/L Alkaline Phosphatase 56 (40-150) U/L Total Protein 6.8 (6.0-8.3) g/dL Albumin 3.1 L (3.3-5.0) g/dL Triglycerides (40-149) mg/dL HDL Cholesterol (>=50) mg/dL 03/03/22 Range/Units 06:38 Sodium 139 (135-149) mmol/L Potassium 3.5 L (3.6-5.1) mmol/L Chloride 107 (96-114) mmol/L Carbon Dioxide 31 (20-32) mmol/L BUN 15 (7-30) mg/dL Creatinine 0.8 (0.5-1.5) mg/dL Glucose 112 (60-115) mg/dL Hemoglobin A1c (0-5.6) % Calcium 8.3 L (8.4-10.6) mg/dL AST (12-35) U/L ALT (4-35) U/L Alkaline Phosphatase (40-150) U/L Total Protein (6.0-8.3) g/dL Albumin (3.3-5.0) g/dL Triglycerides 90 (40-149) mg/dL HDL Cholesterol 26 L (>=50) mg/dL Thyroid panel 03/02/22 Range/Units 17:07 TSH 3.070 (0.270-4.20) uIU/mL Calcium panel 03/02/22 03/02/22 03/03/22 Range/Units 12:12 17:07 06:38 Calcium 9.0 8.3 L (8.4-10.6) mg/dL Phosphorus 2.9 (2.5-4.5) mg/dL Albumin 3.1 L (3.3-5.0) g/dL Pituitary panel 03/02/22 03/02/22 03/03/22 Range/Units 12:12 17:07 06:38 Sodium 139 139 (135-149) mmol/L Potassium 5.2 H 3.5 L (3.6-5.1) mmol/L Chloride 103 107 (96-114) mmol/L Carbon Dioxide 27 31 (20-32) mmol/L BUN 16 15 (7-30) mg/dL Creatinine 0.8 0.8 (0.5-1.5) mg/dL Glucose 92 112 (60-115) mg/dL Calcium 9.0 8.3 L (8.4-10.6) mg/dL TSH 3.070 (0.270-4.20) uIU/mL Adrenal panel 03/02/22 03/02/22 03/03/22 Range/Units 12:12 17:07 06:38 Sodium 139 139 (135-149) mmol/L Potassium 5.2 H 3.5 L (3.6-5.1) mmol/L Chloride 103 107 (96-114) mmol/L Carbon Dioxide 27 31 (20-32) mmol/L BUN 16 15 (7-30) mg/dL Creatinine 0.8 0.8 (0.5-1.5) mg/dL Glucose 92 112 (60-115) mg/dL Calcium 9.0 8.3 L (8.4-10.6) mg/dL Total Bilirubin 0.9 (0.1-1.5) mg/dL AST 25 (12-35) U/L ALT 32 (4-35) U/L Alkaline Phosphatase 56 (40-150) U/L Total Protein 6.8 (6.0-8.3) g/dL Albumin 3.1 L (3.3-5.0) g/dL All other labs normal. Assessment and Plan Assessment and plan (1) Stage III pressure ulcer of buttock: Status: Acute (2) Lymphedema associated with obesity: Status: Acute Assessment and Plan: Patient with evidence of bilateral lymphedema secondary to obesity. It no open wounds appreciated on bilateral lower extremities. Recommend at this time that she elevate her legs and apply Coban Lite for partial compression. Plan Patient is a 71-year-old female, currently hospitalized for weakness and atrial flutter, with evidence of a stage II pressure ulcer of the left buttock and a stage III pressure ulcer of the right buttock. The right buttock pressure ulcer does have some overlying eschar and necrotic tissue, in need of debridement. She remains nontoxic, no leukocytosis and afebrile overnight. Her atrial flutter has improved, but she continues on a diltiazem drip. Pressures are stable (120-99 systolic blood pressure). No current indication for antibiotics. A bedside debridement was performed today with removal of approximately 20% of the material. This was tolerated ?okay? by the patient. Will dress the wound with Iodosorb and Mepilex dressing, change as needed throughout the day for saturation. Please place patient NPO at midnight for re-evaluation in the morning and possible debridement of the right buttock ulcer in the operating room. General Surgery Procedures Procedure Note Date Seen: 03/03/22 Will [facility] bill your pro fee for this procedure?: Yes Pre-op diagnosis: Stage III decubitus ulcer Post-op diagnosis: same Procedure: Procedure: Debridement of right buttock pressure ulcer, measuring 7 x 10 cm in size. Lidocaine gel was applied to the area and left in place for period of 5 minutes. The overlying eschar was sharply debrided with a 15 Scalpel. Bleeding was controlled with pressure. Debridement was carried down to subcutaneous tissue. About 20% of the overlying necrotic tissue was able to be debrided. The left remained in place with the procedure cut short secondary to patient discomfort. Proximal area of debridement was 5 x 5 cm. A dressing of Iodosorb and outer Mepilex dressing was applied. Patient had no immediate complications. Procedure was made difficult secondary to patient discomfort. Anesthesia: local Surgeon: Kortney Rice Estimated blood loss (mL): 10 Pathology: none sent Condition: stable Disposition: ICU
[2022-03-03] MEDS: METOPROLOL TARTRATE 25 MG TABLET 50 MG PO (14:43)
[2022-03-03] MEDS: NYSTATIN POWDER 1 APPLIC TOPICAL (15:30)
--- NOTE | 2022-03-03 16:15 | REH.OT ---
OT eval on hold today d/t debridement of Stage III decubitus ulcer on buttocks. OT plans to evaluate tomorrow.
--- NOTE | 2022-03-03 16:34 | PC.SOCIAL ---
Spoke with pt. [facility] telephonic nurse case manager at [phone] who wants an update when pt. is closer to discharge.
--- NOTE | 2022-03-03 18:23 | PC.NURSE ---
TELE CONTINUES TO SHOW AFLUTTER. HEART RATE AT BEGINNING OF SHIFT WAS 60-80'S. DILTIAZEM DECREASED TO 5ML/HR. AT 1200, HEART NOTED TO BE 130-140'S AGAIN. DILTIAZEM DRIP INCREASED BACK TO 10ML/HR. DR. MITCHELL UPDATED AND METOPROLOL 50MG PO ADMINISTERED. HEART RATE CURRENTLY 70-90'S. LOPEZ IN PLACE. BUTTOCKS DEBRIDED AT BEDSIDE BY DR. COELHO. MEPILEX DRESSINGS TO BILATERAL BUTTOCKS; MODERATE AMOUNT PURULENT DRAINAGE AND MEPILEX CHANGED NEEDED. PATIENT UP TO COMMODE ONCE WITH EZ STAND. PATIENT DID REPORT RIGHT KNEE DISCOMFORT FROM CHRONIC INJURY WITH EZ STAND USE. BEFORE SUPPER, PATIENT STATED SHE NEEDED TO HAVE ANOTHER BM. ATTEMPTED TO GET UP TO BSC WITH CEILING LIFT BUT PATIENT WAS INCONTINENT OF LARGE BM BEFORE STAFF WAS ABLE TO GET HER UP. PATIENT WASHED UP AND MEPILEX DRESSINGS REPLACED AGAIN. T&R. TOLERATED REGULAR DIET WITH NO C/O N/V. PATIENT REPORTS PAIN ONLY WITH REPOSITIONING.
[2022-03-03] MEDS: diphenhydrAMINE 25 MG CAPSULE PO (23:31)
[2022-03-04] VITALS (24 sets, daily range): BP systolic 82–135; BP diastolic 58–85; PULSE 67–115; RESP 13–20; TEMP 36.4–37.3; O2SAT 90–97
[2022-03-04] MEDS: PIPERACILLIN/TAZOBACTAM 3.375 GM in 0.9 % SODIUM CHLORIDE Mini-bag 100 ML IVPB ×4 (03:02→18:58)
[2022-03-04 06:55] LABS: Basophils Absolute Auto 0.01 K/uL (0.00-0.30); Basophils Percent Auto 0.2 % (0.0-3.0); Eosinophils Absolute Auto 0.19 K/uL (0.00-0.50); Eosinophils Percent Auto 3.1 % (0.0-7.0); Hematocrit 39.7 % (33.0-51.0); Hemoglobin* 12.4 gm/dL (12.0-16.0); Immature Granulocytes Abs Auto 0.03 K/uL (0.00-0.30); Immature Granulocytes Pct Auto 0.5 %; Lymphocytes Percent Auto 18.2 % (20-44); Mean Corpuscular HGB Conc 31 gm/dL (32-36); Mean Corpuscular Hemoglobin 27 pg (26-34); Mean Corpuscular Volume 86 fL (80-100); Monocytes Percent Auto 12.6 % (0.0-11.0); Neutrophils Absolute Auto 4.04 K/uL (1.7-7.0); Neutrophils Percent Auto 65.4 % (42.0-72.0); Platelet Count* 169 K/uL (140-440); RDW Coefficient of Variation % 14.3 % (11.5-15.5); Red Blood Count 4.64 m/uL (4.00-5.20); White Blood Count* 6.17 K/uL (4.50-11.00)
--- NOTE | 2022-03-04 06:58 | PC.NURSE ---
Pt pleasant and cooperative. Remains on Diltizem gtt at 5/hr. HR has been 70's-90s til this am when HR has now been in the 113's to the 120's. Spoke with MD and will increase gtt to 10mg/hr if HR remains there in the next 15min. She is T&R q2hrs or as pt requests. BM x1lg inc. Drsg on buttocks changed x1. Ghosh draining lt pink colored, smelly urine. BP's have been on the low side 90/50's. Metoprolol held x2 due to parameters. MD aware
[2022-03-04 07:11] LABS: Slide Review Reflex No
[2022-03-04 07:15] LABS: Albumin* 2.6 g/dL (3.3-5.0); Chloride* 109 mmol/L (96-114)
[2022-03-04 07:16] LABS: Potassium* 3.5 mmol/L (3.6-5.1); Sodium* 140 mmol/L (135-149)
[2022-03-04 07:18] LABS: Bilirubin Total* 0.5 mg/dL (0.1-1.5); Creatinine* 0.8 mg/dL (0.5-1.5); Est. Creatinine Clearance* 44.56; Estimated Glomerular Filt Rate 79 ml/min
[2022-03-04 07:19] LABS: Alanine Aminotransferase* 26 U/L (4-35); Alkaline Phosphatase* 48 U/L (40-150); Aspartate Amino Transferase* 19 U/L (12-35); Blood Urea Nitrogen* 16 mg/dL (7-30); Calcium* 8.3 mg/dL (8.4-10.6); Carbon Dioxide* 30 mmol/L (20-32); Glucose* 99 mg/dL (60-115); Total Protein* 6.1 g/dL (6.0-8.3)
[2022-03-04 07:21] LABS: C Reactive Protein* 6.8 mg/dL (0.5-1.0)
[2022-03-04] MEDS: DIGOXIN 250 MCG TABLET PO (08:07)
[2022-03-04] MEDS: METOPROLOL TARTRATE 25 MG TABLET 50 MG PO ×3 (08:08→21:16)
[2022-03-04] MEDS: NYSTATIN POWDER 1 APPLIC TOPICAL ×2 (08:14→20:51)
[2022-03-04] MEDS: BACITRACIN OINTMENT BULK TUBE 1 APPLIC TOPICAL (12:07)
--- NOTE | 2022-03-04 12:12 | W.ANESCHARGE ---
Anesthesia Charges Start Date/Time Anesthesia Start Date: 03/04/22 Anesthesia Start Time: 11:37 Stop Date/Time Anesthesia Stop Date: 03/04/22 Anesthesia Stop Time: 12:10 Summary Emergency: No Extremes of Age: Over 70-CPT [address]
--- NOTE | 2022-03-04 12:16 | P.GSOP_ITS ---
Operative Note Date of procedure: 03/04/22 Pre-op diagnosis: Right buttock pressure ulcer, stage III Post-op diagnosis: Same Type of Procedure: Debridement of right buttock pressure ulcer Procedure Description: After discussing the risks and benefits of the procedure, the patient signed informed consent.? The operative site was marked and the patient was brought to the operating room and placed on the operating table in supine position.? Care was taken to pad the patient's pressure points.?? The patient was then given sedation by anesthesia.?? The operative site was then prepped and draped in the usual sterile fashion.? A time-out was then performed. 1% lidocaine was used to infiltrate the surgical field. Using sharp debridement all overlying necrotic tissue was removed down to healthy bleeding subcutaneous fat. Total amount of tissue removed was 7 cm x 7 cm by 0.5 cm in depth. Bleeding was controlled with cautery. The wound was copiously irrigated with normal saline. Dressings of Neosporin and Mepilex were applied to the area. ? Sterile dressings were then applied. ? The patient was then woken and transported to the recovery area in stable co ndition. ? The patient tolerated the procedure well. Indications: Patient has a stage III right buttock pressure ulcer with overlying necrotic tissue requiring debridement. Risks and benefits of operative intervention were discussed at length with the patient. Risks included, but were not limited to: Bleeding, infection, risk of damage surrounding structures and possible need for additional procedures. All questions and concerns were addressed with patient agreeing to proceed. Findings: 7 x 7 cm stage III pressure ulcer of the right buttock. Anesthesia: MAC Surgeon: Kortney Rice MD Estimated blood loss (mL): 10 Condition: stable Disposition: floor
--- NOTE | 2022-03-04 12:34 | SUR.PHASEI ---
patient met discharge criteria per anesthesia
--- NOTE | 2022-03-04 12:54 | PM.IMPN1 ---
Progress Note: A&P Assessment and plan (1) Atrial flutter with rapid ventricular response: Problem details: - transitioning to digoxin and metoprolol from diltiazem GTT - TTE obtained 03/03 (results below) - reviewed case with Dr. Watt of Cardiology at [facility] on 03/04 regarding patient's treatment resistant atrial flutter: Patient will need cardiology evaluation with JUDY and possible cardioversion; unfortunately, no bed available within our transfer radius at this time. Will continue to evaluate transfer options Final Impressions: 1. Technically very limited exam. 2. Normal LV size, normal global systolic function with an estimated EF of 60 - 65%. 3. Enlarged RV w/ reduced function, incompletely visualized. 4. Moderately enlarged left atrium. 5. No hemodynamically significant valve disease detected. Status: Acute (2) Fall: Status: Acute (3) Weakness generalized: Problem details: - PT and OT following - when medically stable, may require TCU placement Status: Acute (4) Pressure ulcer of buttock: Problem details: - General surgery following, I&D in OR 03/04 Status: Acute (5) Incontinence associated dermatitis: Status: Acute Subjective Date Seen: 03/04/22 Interval history: No acute events overnight. Patient had 2 doses of metoprolol held secondary to hypotension; this morning her heart rate is in the 140 range. She remains asymptomatic from her atrial flutter. She remains on daily digoxin (250mcg daily after load), metoprolol 50 mg Q6H, and diltiazem GTT. This morning, she has an I&D in the OR with Dr. Rice of general surgery given her stage III buttock ulcer. Exam Narrative: Exam Narrative: GEN: Alert and oriented, nontoxic in appearance and answering questions appropriately HEENT: Normal external ears, EOMIs bilaterally CV: Rate in the 90s during my exam (patient received metoprolol just prior to my visit), irregular R: LCTA bilaterally without concerning wheezing, rales, or rhonchi, air movement adequate Ext: + edema of extremities Skin: Pressure ulcer and abdominal intertrigo not formally examined given I&D today and discomfort with repositioning Neuro: No focal deficits Psych: Appropriate Const: Vital Signs, click to edit/add: Vital Signs - 24 hr 03/03/22 15:00 03/03/22 15:00 01/03/23 15:00 Temperature Pulse Rate 122 H Pulse Rate [Pulse Oximeter] 138 H Respiratory Rate 20 20 Blood Pressure Blood Pressure [Le ft Arm] Blood Pressure [Ri ght Radial Artery] Pulse Oximetry 95 Oxygen Delivery Me thod Room Air 03/03/22 15:00 03/03/22 20:00 03/04/22 00:23 Temperature 98.6 F 97.8 F Pulse Rate Pulse Rate [Pulse Oximeter] 138 H 74 Respiratory Rate 20 20 20 Blood Pressure Blood Pressure [Le ft Arm] 109/73 99/68 Blood Pressure [Ri ght Radial Artery] Pulse Oximetry 95 95 95 Oxygen Delivery Me thod Room Air Room Air Room Air 03/04/22 00:23 03/04/22 03:18 03/03/22 23:00 Temperature 97.8 F 97.8 F Pulse Rate 77 Pulse Rate [Pulse Oximeter] 74 84 Respiratory Rate 20 20 Blood Pressure Blood Pressure [Le ft Arm] 99/68 98/58 L Blood Pressure [Ri ght Radial Artery] Pulse Oximetry 95 [facility] 03/03/22 23:00 03/04/22 07:31 03/04/22 08:07 Temperature Pulse Rate 77 100 115 H Pulse Rate [Pulse Oximeter] Respiratory Rate Blood Pressure Blood Pressure [Le ft Arm] Blood Pressure [Ri ght Radial Artery] Pulse Oximetry Oxygen Delivery Wy thod 03/04/22 08:28 03/04/22 08:00 03/04/22 08:00 Temperature 98.2 F Pulse Rate Pulse Rate [Pulse Oximeter] 108 H 108 H Respiratory Rate 20 20 20 Blood Pressure Blood Pressure [Le ft Arm] 124/79 Blood Pressure [Ri ght Radial Artery] Pulse Oximetry 93 93 Oxygen Delivery Wy thod Room Air Room Air 03/04/22 11:12 03/04/22 12:07 03/04/22 12:15 Temperature 98.0 F 99.1 F 99.1 F Pulse Rate 68 69 Pulse Rate [Pulse Oximeter] 71 Respiratory Rate 20 13 16 Blood Pressure 108/81 123/77 Blood Pressure [Le ft Arm] 106/76 Blood Pressure [Ri ght Radial Artery] Pulse Oximetry 96 94 [facility] 03/04/22 12:10 03/04/22 12:20 03/04/22 12:46 Temperature 99.1 F 98.3 F Pulse Rate 68 69 Pulse Rate [Pulse Oximeter] 70 Respiratory Rate 16 15 16 Blood Pressure 116/77 124/76 Blood Pressure [Le ft Arm] Blood Pressure [Ri ght Radial Artery] 110/70 Pulse Oximetry 93 94 97 Oxygen Delivery Me thod Room Air Room Air 03/04/22 12:35 Temperature 98.7 F Pulse Rate Pulse Rate [Pulse Oximeter] 76 Respiratory Rate 16 Blood Pressure Blood Pressure [Le ft Arm] Blood Pressure [Ri ght Radial Artery] 118/85 Pulse Oximetry 95 Oxygen Delivery Me thod Room Air Labs Labs: Laboratory Results - last 24 hr 03/04/22 03/04/22 06:17 06:17 WBC 6.17 RBC 4.64 Hgb 12.4 Hct 39.7 MCV 86 MCH 27 MCHC 31 L RDW Coeff of Sal 14.3 Plt Count 169 Neut % (Auto) 65.4 Lymph % (Auto) 18.2 L [place] % (Auto) 12.6 H Eos % (Auto) 3.1 Baso % (Auto) 0.2 Neut # (Auto) 4.04 Lymph # (Auto) 1.10 [place] # (Auto) 0.80 Eos # (Auto) 0.19 Baso # (Auto) 0.01 Sodium 140 Potassium 3.5 L Chloride 109 Carbon Dioxide 30 BUN 16 Creatinine 0.8 Estimated Creat Clear 44.56 Estimated GFR 79 Glucose 99 Calcium 8.3 L Total Bilirubin 0.5 AST 19 ALT 26 Alkaline Phosphatase 48 C-Reactive Protein 6.8 H Total Protein 6.1 Albumin 2.6 L
--- NOTE | 2022-03-04 13:03 | CRLHL7_ITS ---
For Patients: As a result of the Century Cures Act, medical imaging exams and procedure reports are released immediately into your electronic medical record. You may view this report before your referring provider. If you have questions, please contact your health care provider. INDICATION: Hematuria. TECHNIQUE: Ultrasound renal and bladder complete. Hart-scale and color Doppler sonographic images were acquired of the kidneys and urinary bladder. COMPARISON: None. FINDINGS: Right kidney: 10 cm. Left kidney: 9 cm. Normal echotexture and cortex. No suspicious masses, stones, or hydronephrosis. A 3 cm simple appearing cyst is in the superior pole of the left kidney. Bladder: Catheterized and decompressed. IMPRESSION: Unremarkable renal ultrasound. No finding to explain hematuria. Dictated by Jesus Lockett MD @ 03/04/2022 4:00:33 PM (Electronically Signed)
[2022-03-04] MEDS: SODIUM CHLORIDE 0.9 % (FLUSH) 10 ML SYRINGE 5 ML IVF ×2 (13:06→20:51)
[2022-03-04] MEDS: HYDROmorphone 0.5 mg/0.5 ml inj IVP (13:07)
[2022-03-04] MEDS: 0.9 % SODIUM CHLORIDE 250 ml IV (13:08)
--- NOTE | 2022-03-04 17:24 | PC.NURSE ---
end of shift. Pt has been very pleasant and cooperative. Diltazem gtt at 5/hr till 1700 and then it was d/c per . HR has been 70's-80 after po metoprolol kicked in @ 0830. is aware. She has been T&R q2hrs. no BM Drsg on buttocks changed x1. she went to surgery for 1 hour and had a I and D. Ghosh draining bassett colored, smelly urine. UA was sent BP's have been improved. Metoprolol given per orders. ? SL patent x2. 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
[2022-03-04] MEDS: LACTOBACILLUS ACIDOPHILUS 1 TABLET 1 TAB PO (18:01)
[2022-03-04 18:59] LABS: Cholesterol* 83 mg/dL (90-199); LDL Cholesterol Calculated 39 mg/dL (<100)
[2022-03-04] MEDS: OXYCODONE 5 MG TABLET PO (19:53)
[2022-03-04] MEDS: APIXABAN 5 MG TABLET PO (20:51)
[2022-03-05] VITALS (10 sets, daily range): BP systolic 93–126; BP diastolic 61–75; PULSE 66–74; RESP 18; TEMP 36.5–36.8; O2SAT 92–96
[2022-03-05] MEDS: PIPERACILLIN/TAZOBACTAM 3.375 GM in 0.9 % SODIUM CHLORIDE Mini-bag 100 ML IVPB ×4 (00:56→18:35)
[2022-03-05] MEDS: SODIUM CHLORIDE 0.9 % (FLUSH) 10 ML SYRINGE 5 ML IVF ×5 (01:23→20:57)
[2022-03-05] MEDS: METOPROLOL TARTRATE 25 MG TABLET 50 MG PO ×4 (03:08→20:57)
[2022-03-05] MEDS: HYDROmorphone 0.5 mg/0.5 ml inj IVP ×3 (03:48→16:53)
--- NOTE | 2022-03-05 05:02 | PC.NURSE ---
[id number] called [facility] for update of low urine output, 75cc since 219903/04/22, No new orders, call back if pt becomes hypotensive, per Dr Hanley.
--- NOTE | 2022-03-05 05:28 | PC.NURSE ---
[id number] Pt bedrest entire shift, shifted weight q3 hrs, bm x1, cleaned surrounding wound area and mepilex changed. see previous note for urine output, hematuria still present, williamson patent and draining. HR <100 at rest and MAP >65 entire shift. denies lightheaded/dizziness, sob, chest pain, N/V or headache. prn pain medication administered with relief.
--- NOTE | 2022-03-05 07:02 | P.IMPN_ITS ---
Progress Note: A&P Assessment and plan (1) Atrial flutter with rapid ventricular response: Problem details: - transitioning to digoxin and metoprolol from diltiazem GTT - TTE obtained 03/03 (results below) - reviewed case with Dr. Watt of Cardiology at [facility] on 03/04: Patient now in rate controlled atrial flutter, would benefit from Cardiology evaluation with JUDY and possible cardioversion; unfortunately, no bed available within our transfer radius at this time. Will continue to evaluate transfer options thrice daily Final Impressions: 1. Technically very limited exam. 2. Normal LV size, normal global systolic function with an estimated EF of 60 - 65%. 3. Enlarged RV w/ reduced function, incompletely visualized. 4. Moderately enlarged left atrium. 5. No hemodynamically significant valve disease detected. Status: Acute (2) Fall: Status: Acute (3) Weakness generalized: Problem details: - PT and OT following, fall risk. Requiring assistance with ADLs - when medically stable, may require TCU placement Status: Acute (4) Pressure ulcer of buttock: Problem details: - General surgery following, I&D in OR 03/04. Dr. Rice Status: Acute (5) Incontinence associated dermatitis: Problem details: - williamson in place Status: Acute (6) Decreased urine output: Problem details: - prn IVF boluses, follow renal function Status: Acute Plan - per above - wound care per General Surgery recommendations - Eliquis for ppx - dispo: transfer to Cardiology vs TCU Subjective Date Seen: 03/05/22 Interval history: Emily has remained in rate controlled atrial fibrillation for the past 24 hours. Nursing staff has noted decreased UOP (in addition to hematuria, williamson in place). Renal ultrasound 03/04 negative for any acute findings. Emily has no concerns for hospitalist team at this time. Exam Narrative: Exam Narrative: GEN: Alert and oriented, laying comfortably in bed HEENT: Normal external ears, EOMIs bilaterally CV: Rate controlled atrial flutter R: LCTA bilaterally without concerning wheezing, rales, or rhonchi, air movement adequate Ext: edema of BLEs Skin: Wound not formally examined (pictures per nursing staff reassuring) Neuro: Nonfocal Psych: Appropriate Const: Vital Signs, click to edit/add: Vital Signs - 24 hr 03/04/22 07:31 03/04/22 08:07 03/04/22 08:28 Temperature Pulse Rate 100 115 H Pulse Rate [Pulse Oximeter] 108 H Respiratory Rate 20 Blood Pressure Blood Pressure [Le ft Arm] Blood Pressure [Ri ght Radial Artery] Pulse Oximetry Oxygen Delivery Me thod 03/04/22 08:00 03/04/22 08:00 03/04/22 11:12 Temperature 98.2 F 98.0 F Pulse Rate Pulse Rate [Pulse Oximeter] 108 H 71 Respiratory Rate 20 20 20 Blood Pressure Blood Pressure [Le ft Arm] 124/79 106/76 Blood Pressure [Ri ght Radial Artery] Pulse Oximetry 93 93 96 Oxygen Delivery Me thod Room Air Room Air Room Air 03/04/22 12:07 03/04/22 12:15 03/04/22 12:10 Temperature 99.1 F 99.1 F 99.1 F Pulse Rate 68 69 68 Pulse Rate [Pulse Oximeter] Respiratory Rate 13 16 16 Blood Pressure 108/81 123/77 116/77 Blood Pressure [Le ft Arm] Blood Pressure [Ri ght Radial Artery] Pulse Oximetry 94 93 Oxygen Delivery Me thod Room Air 03/04/22 12:20 03/04/22 12:46 03/04/22 12:35 Temperature 98.3 F 98.7 F Pulse Rate 69 Pulse Rate [Pulse Oximeter] 70 76 Respiratory Rate 15 16 16 Blood Pressure 124/76 Blood Pressure [Le ft Arm] Blood Pressure [Ri ght Radial Artery] 110/70 118/85 Pulse Oximetry 94 97 95 Oxygen Delivery De thod Room Air Room Air Room Air 03/04/22 13:16 03/04/22 13:46 03/04/22 13:30 Temperature 98.7 F Pulse Rate Pulse Rate [Pulse Oximeter] 70 69 69 Respiratory Rate 16 16 16 Blood Pressure Blood Pressure [Le ft Arm] Blood Pressure [Ri ght Radial Artery] 121/71 135/79 131/72 Pulse Oximetry 94 95 94 Oxygen Delivery Me thod Room Air Room Air Room Air 03/04/22 14:05 03/04/22 15:41 03/04/22 15:43 Temperature Pulse Rate 70 Pulse Rate [Pulse Oximeter] 69 70 Respiratory Rate 16 18 Blood Pressure Blood Pressure [Le ft Arm] Blood Pressure [Ri ght Radial Artery] 131/82 Pulse Oximetry 95 Oxygen Delivery Me thod Room Air 03/04/22 15:00 03/04/22 15:00 03/04/22 19:00 Temperature 98.0 F 98.1 F Pulse Rate Pulse Rate [Pulse Oximeter] 70 74 Respiratory Rate 18 18 18 Blood Pressure Blood Pressure [Le ft Arm] Blood Pressure [Ri ght Radial Artery] 112/66 82/61 L Pulse Oximetry 92 94 94 Oxygen Delivery Me thod Room Air Room Air Room Air 03/04/22 21:08 03/04/22 23:00 03/04/22 23:00 Temperature Pulse Rate 67 Pulse Rate [Pulse Oximeter] 67 Respiratory Rate Blood Pressure Blood Pressure [Le ft Arm] 108/60 Blood Pressure [Ri ght Radial Artery] Pulse Oximetry Oxygen Delivery Me thod 03/04/22 23:00 03/04/22 23:00 03/05/22 03:00 Temperature 97.6 F 98.0 F Pulse Rate Pulse Rate [Pulse Oximeter] 67 69 Respiratory Rate 18 18 18 Blood Pressure Blood Pressure [Le ft Arm] 93/61 93/61 Blood Pressure [Ri ght Radial Artery] Pulse Oximetry 90 91 93 Oxygen Delivery Me thod Room Air Room Air Room Air Labs Labs: Laboratory Results - last 24 hr 03/03/22 03/04/22 03/04/22 06:38 06:17 06:17 WBC 6.17 RBC 4.64 Hgb 12.4 Hct 39.7 MCV 86 MCH 27 MCHC 31 L RDW Coeff of Sal 14.3 Plt Count 169 Neut % (Auto) 65.4 Lymph % (Auto) 18.2 L [place] % (Auto) 12.6 H Eos % (Auto) 3.1 Baso % (Auto) 0.2 Neut # (Auto) 4.04 Lymph # (Auto) 1.10 [place] # (Auto) 0.80 Eos # (Auto) 0.19 Baso # (Auto) 0.01 Sodium 140 Potassium 3.5 L Chloride 109 Carbon Dioxide 30 BUN 16 Creatinine 0.8 Estimated Creat Clear 44.56 Estimated GFR 79 Glucose 99 Calcium 8.3 L Total Bilirubin 0.5 AST 19 ALT 26 Alkaline Phosphatase 48 C-Reactive Protein 6.8 H Total Protein 6.1 Albumin 2.6 L Cholesterol 83 L LDL Cholesterol, Calc 39
[2022-03-05 07:11] LABS: Basophils Absolute Auto 0.02 K/uL (0.00-0.30); Basophils Percent Auto 0.3 % (0.0-3.0); Eosinophils Absolute Auto 0.13 K/uL (0.00-0.50); Eosinophils Percent Auto 2.1 % (0.0-7.0); Hematocrit 44.2 % (33.0-51.0); Hemoglobin* 13.3 gm/dL (12.0-16.0); Immature Granulocytes Abs Auto 0.02 K/uL (0.00-0.30); Immature Granulocytes Pct Auto 0.3 %; Lymphocytes Absolute Auto 1.36 K/uL (0.90-2.90); Lymphocytes Percent Auto 21.8 % (20-44); Mean Corpuscular HGB Conc 30 gm/dL (32-36); Mean Corpuscular Hemoglobin 26 pg (26-34); Mean Corpuscular Volume 87 fL (80-100); Monocytes Percent Auto 10.9 % (0.0-11.0); Neutrophils Absolute Auto 4.02 K/uL (1.7-7.0); Neutrophils Percent Auto 64.6 % (42.0-72.0); Platelet Count* 160 K/uL (140-440); RDW Coefficient of Variation % 14.4 % (11.5-15.5); Red Blood Count 5.06 m/uL (4.00-5.20); White Blood Count* 6.23 K/uL (4.50-11.00)
[2022-03-05 07:12] LABS: Slide Review Reflex No
[2022-03-05 07:26] LABS: Chloride* 107 mmol/L (96-114); Potassium* 3.8 mmol/L (3.6-5.1); Sodium* 136 mmol/L (135-149)
[2022-03-05 07:28] LABS: Est. Creatinine Clearance* 44.56; Estimated Glomerular Filt Rate 60 ml/min
[2022-03-05 07:29] LABS: Blood Urea Nitrogen* 17 mg/dL (7-30); Calcium* 8.4 mg/dL (8.4-10.6); Carbon Dioxide* 25 mmol/L (20-32); Glucose* 104 mg/dL (60-115)
[2022-03-05] MEDS: LACTATED RINGERS 1000 ML 500 ML 250 ML IV (07:39)
[2022-03-05] MEDS: DIGOXIN 250 MCG TABLET PO (10:12)
[2022-03-05] MEDS: APIXABAN 5 MG TABLET PO ×2 (10:13→20:57)
[2022-03-05] MEDS: LACTOBACILLUS ACIDOPHILUS 1 TABLET 1 TAB PO ×3 (10:14→17:47)
[2022-03-05] MEDS: NYSTATIN POWDER 1 APPLIC TOPICAL ×2 (10:14→20:57)
[2022-03-05] MEDS: OXYCODONE 5 MG TABLET PO ×2 (12:02→22:06)
[2022-03-05] MEDS: ACETAMINOPHEN 325 MG TABLET 975 MG PO (12:03)
--- NOTE | 2022-03-05 13:18 | PM.GSPN ---
Subjective Subjective Date Seen: 03/05/22 Interval history: Patient is doing well this morning. She has had some pain with dressing changes, but overall feels like this has continued to improve. No concerns. Exam Narrative: Exam Narrative: General: Alert and oriented, no acute distress Genitourinary: Ghosh in place. Pictures of the wound are in the chart, clean base with no surrounding necrosis. No concern for infection. Const: Vital Signs, click to edit/add: Vital Signs - 24 hr 03/04/22 13:46 03/04/22 13:30 03/04/22 14:05 Temperature Pulse Rate Pulse Rate [Pulse Oximeter] 69 69 69 Respiratory Rate 16 16 16 Blood Pressure [Le ft Arm] Blood Pressure [Ri ght Radial Artery] 135/79 131/72 131/82 Pulse Oximetry 95 94 95 Oxygen Delivery Mi thod Room Air Room Air Room Air 03/04/22 15:41 03/04/22 15:43 03/04/22 15:00 Temperature Pulse Rate 70 Pulse Rate [Pulse Oximeter] 70 Respiratory Rate 18 18 Blood Pressure [Le ft Arm] Blood Pressure [Ri ght Radial Artery] Pulse Oximetry 92 Oxygen Delivery Mi thod Room Air 03/04/22 15:00 03/04/22 19:00 03/04/22 21:08 Temperature 98.0 F 98.1 F Pulse Rate Pulse Rate [Pulse Oximeter] 70 74 Respiratory Rate 18 18 Blood Pressure [Le ft Arm] 108/60 Blood Pressure [Ri ght Radial Artery] 112/66 82/61 L Pulse Oximetry 94 94 [facility] 03/04/22 23:00 03/04/22 23:00 03/04/22 23:00 Temperature Pulse Rate 67 Pulse Rate [Pulse Oximeter] 67 Respiratory Rate 18 Blood Pressure [Le ft Arm] Blood Pressure [Ri ght Radial Artery] Pulse Oximetry 90 Oxygen Delivery Mi thod Room Air 03/04/22 23:00 03/05/22 03:00 03/05/22 07:31 Temperature 97.6 F 98.0 F Pulse Rate 67 Pulse Rate [Pulse Oximeter] 67 69 Respiratory Rate 18 18 Blood Pressure [Le ft Arm] 93/61 93/61 Blood Pressure [Ri ght Radial Artery] Pulse Oximetry 91 93 [facility] Room [facility] 03/05/22 07:35 03/05/22 07:35 03/05/22 07:30 Temperature 98.3 F Pulse Rate Pulse Rate [Pulse Oximeter] 74 74 Respiratory Rate 18 18 18 Blood Pressure [Le ft Arm] 104/75 Blood Pressure [Ri ght Radial Artery] Pulse Oximetry 92 92 Oxygen Delivery Me thod Room Air Room Air 03/05/22 10:18 03/05/22 11:56 Temperature 98.1 F Pulse Rate Pulse Rate [Pulse Oximeter] 73 72 Respiratory Rate 18 18 Blood Pressure [Le ft Arm] 121/74 126/73 Blood Pressure [Ri ght Radial Artery] Pulse Oximetry 93 94 Oxygen Delivery Me thod Room Air Room Air Progress Note: A&P Assessment and plan (1) Stage III pressure ulcer of buttock: Status: Acute Assessment and Plan: Patient is postop day 1 debridement of stage III right buttock pressure ulcer. She also has a stage II left buttock pressure ulcer. No further debridement needed at this time. Recommend that wounds be dressed with Iodosorb and Mepilex border dressing. She would benefit from establishing care at the wound center. Anticipate that these wounds will be slow to heal given the patient's comorbidities. Surgery to sign off at this time. Orders have been placed for wound care.
--- NOTE | 2022-03-05 14:36 | PC.NURSE ---
end of shift. ? Pt is very pleasant and cooperative.? HR has been 70's-80 po metoprolol. ?She has been T&R q2hrs.? no BM ? Drsg on buttocks changed x1.? she had a BM. she got a 500 cc LR bolus for low urine. ? Ghosh draining dark urine.? SL patent x2.? 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 she is eating and drinking. pain 2-7 she got 5 mg po oxy and 0.5 IVP Dilaudid with bm and dressing change
[2022-03-05] MEDS: 0.9 % SODIUM CHLORIDE 500 ML 250 ML IV ×2 (15:52→22:59)
--- NOTE | 2022-03-05 18:18 | PC.NURSE ---
Shift Summary 15-19: Patient pleasant and cooperative, T&R q2h with PRN dilaudid given prior to prevent pain, patient tolerated movement well. Ghosh in place with small amount of felipe urine, 250cc bolus given at start of shift.
[2022-03-06] VITALS (8 sets, daily range): BP systolic 117–137; BP diastolic 60–86; PULSE 64–89; RESP 16–18; TEMP 36.2–36.7; O2SAT 91–94
[2022-03-06] MEDS: 0.9 % SODIUM CHLORIDE 250 ml IV (00:59)
[2022-03-06] MEDS: PIPERACILLIN/TAZOBACTAM 3.375 GM in 0.9 % SODIUM CHLORIDE Mini-bag 100 ML IVPB ×2 (00:59→06:41)
[2022-03-06] MEDS: METOPROLOL TARTRATE 25 MG TABLET 50 MG PO (02:39)
[2022-03-06] MEDS: diphenhydrAMINE 25 MG CAPSULE PO ×2 (02:41→22:33)
[2022-03-06] MEDS: 0.9 % SODIUM CHLORIDE 500 ML 250 ML IV (03:09)
--- NOTE | 2022-03-06 04:52 | PC.NURSE ---
[id number] Pt rested well during shift between cares, repositioned q2-3 hours. Ghosh patent and draining, Bolus required q4h due to oliguria, hematuria diminishing in urine. HR <100 and map>60 entire shift, [id number]. Dressing change to buttock x2 with BM's, pt tolerated fair, prn pain medication administered and effective.
[2022-03-06] MEDS: SODIUM CHLORIDE 0.9 % (FLUSH) 10 ML SYRINGE 5 ML IVF ×2 (06:41→09:52)
[2022-03-06 07:20] LABS: Basophils Absolute Auto 0.01 K/uL (0.00-0.30); Basophils Percent Auto 0.2 % (0.0-3.0); Eosinophils Absolute Auto 0.13 K/uL (0.00-0.50); Eosinophils Percent Auto 2.7 % (0.0-7.0); Hematocrit 41.4 % (33.0-51.0); Hemoglobin* 12.7 gm/dL (12.0-16.0); Immature Granulocytes Abs Auto 0.02 K/uL (0.00-0.30); Immature Granulocytes Pct Auto 0.4 %; Lymphocytes Absolute Auto 1.19 K/uL (0.90-2.90); Lymphocytes Percent Auto 25.2 % (20-44); Mean Corpuscular HGB Conc 31 gm/dL (32-36); Mean Corpuscular Hemoglobin 27 pg (26-34); Mean Corpuscular Volume 87 fL (80-100); Monocytes Percent Auto 11.8 % (0.0-11.0); Neutrophils Absolute Auto 2.82 K/uL (1.7-7.0); Neutrophils Percent Auto 59.7 % (42.0-72.0); Platelet Count* 164 K/uL (140-440); RDW Coefficient of Variation % 14.3 % (11.5-15.5); Red Blood Count 4.76 m/uL (4.00-5.20); White Blood Count* 4.73 K/uL (4.50-11.00)
[2022-03-06 07:23] LABS: Slide Review Reflex No
[2022-03-06 07:27] LABS: Chloride* 106 mmol/L (96-114)
[2022-03-06 07:28] LABS: Potassium* 3.8 mmol/L (3.6-5.1); Sodium* 137 mmol/L (135-149)
[2022-03-06 07:30] LABS: Carbon Dioxide* 28 mmol/L (20-32); Creatinine* 1.1 mg/dL (0.5-1.5); Est. Creatinine Clearance* 40.51; Estimated Glomerular Filt Rate 54 ml/min
[2022-03-06 07:31] LABS: Blood Urea Nitrogen* 17 mg/dL (7-30); Calcium* 8.4 mg/dL (8.4-10.6); Glucose* 108 mg/dL (60-115)
[2022-03-06] MEDS: LACTATED RINGERS 1000 ML 1,000 ML 125 ML IV ×3 (08:24→23:54)
[2022-03-06] MEDS: DIGOXIN 250 MCG TABLET PO (09:50)
[2022-03-06] MEDS: LACTOBACILLUS ACIDOPHILUS 1 TABLET 1 TAB PO ×3 (09:50→17:32)
[2022-03-06] MEDS: APIXABAN 5 MG TABLET PO ×2 (09:51→21:00)
[2022-03-06] MEDS: NYSTATIN POWDER 1 APPLIC TOPICAL ×2 (09:51→21:02)
[2022-03-06] MEDS: METOPROLOL TARTRATE 100 MG TABLET PO ×2 (09:51→21:00)
--- NOTE | 2022-03-06 13:13 | PM.IMPN1 ---
Progress Note: A&P Assessment and plan (1) Atrial flutter with rapid ventricular response: Problem details: - on admission, patient placed on a diltiazem GTT - transitioned well to oral metoprolol and digoxin (off of diltiazem gtt 03/04) - Eliquis for prophylaxis - discussed case with Dr. Medina of Cardiology on 03/06: Patient remains hemodynamically stable and rate controlled at this time, outpatient cardiology follow-up is appropriate to discuss cardioversion (no need for urgent transfer to tertiary care facility) - TTE obtained 03/03 Final Impressions: 1. Technically very limited exam. 2. Normal LV size, normal global systolic function with an estimated EF of 60 - 65%. 3. Enlarged RV w/ reduced function, incompletely visualized. 4. Moderately enlarged left atrium. 5. No hemodynamically significant valve disease detected. Status: Acute (2) Fall: Problem details: - secondary to weakness and deconditioning Status: Acute (3) Weakness generalized: Problem details: - PT and OT following, fall risk. Requiring assistance with ADLs - when medically stable, will require TCU placement Status: Acute (4) Pressure ulcer of buttock: Problem details: - General surgery following, I&D in OR 03/04. Dr. Dwayne Don initiated on admission, discontinued on 03/06 Status: Acute (5) Incontinence associated dermatitis: Problem details: - williamson in place, appreciate wound care recs Status: Acute (6) Decreased urine output: Problem details: - IVFs, follow renal function Status: Acute Plan - per above - Eliquis for prophylaxis - at this time, patient medically cleared for TCU placement with outpatient cardiology follow-up. Appreciate input from PT, OT, social work Subjective Date Seen: 03/06/22 Interval history: Emily reamins in rate controlled atrial flutter, asymptomatic. She is on maintenance IVFs for decreased UOP. Labs reassuring, remains afebrile. Emily has no concerns for hospitalist team at this time. Exam Narrative: Exam Narrative: GEN: AlertAnd oriented, laying comfortably in bed, answering questions appropriately HEENT: EOMIs, no scleral icterus CV: rate controlled a flutter R: LCTA bilaterally without concerning wheezing, rales, or rhonchi Ext: edema of extremities noted, wearing Devang hose Skin: sacral wound not formally examined today, wound care performed by nursing staff Neuro: Nonfocal Psych: Appropriate Const: Vital Signs, click to edit/add: Vital Signs - 24 hr 03/05/22 15:23 03/05/22 15:23 03/05/22 15:23 Temperature 97.7 F Pulse Rate 67 Pulse Rate [Pulse Oximeter] 73 Respiratory Rate 18 18 Blood Pressure [Le ft Arm] 105/65 Pulse Oximetry 93 93 [facility] 03/05/22 19:00 03/05/22 22:42 03/05/22 22:42 Temperature 97.8 F Pulse Rate Pulse Rate [Pulse Oximeter] 68 68 Respiratory Rate 18 18 Blood Pressure [Le ft Arm] 116/66 Pulse Oximetry 92 93 [facility] Room Air 03/05/22 22:42 03/05/22 23:26 03/06/22 03:00 Temperature 97.8 F 97.2 F L Pulse Rate 66 Pulse Rate [Pulse Oximeter] 67 67 Respiratory Rate 18 18 Blood Pressure [Le ft Arm] 106/65 131/86 Pulse Oximetry 96 91 [facility] 03/06/22 07:00 03/06/22 09:50 03/06/22 07:00 Temperature 97.6 F Pulse Rate 71 Pulse Rate [Pulse Oximeter] 71 71 Respiratory Rate 16 Blood Pressure [Le ft Arm] 137/73 Pulse Oximetry 93 [facility] 03/06/22 07:00 03/06/22 11:00 Temperature 97.1 F L Pulse Rate Pulse Rate [Pulse Oximeter] 71 Respiratory Rate 16 16 Blood Pressure [Le ft Arm] 122/60 Pulse Oximetry 93 91 [facility] Air Labs Labs: Laboratory Results - last 24 hr 03/06/22 03/06/22 06:41 06:41 WBC 4.73 RBC 4.76 Hgb 12.7 Hct 41.4 MCV 87 MCH 27 MCHC 31 L RDW Coeff of Sal 14.3 Plt Count 164 Neut % (Auto) 59.7 Lymph % (Auto) 25.2 [place] % (Auto) 11.8 H Eos % (Auto) 2.7 Baso % (Auto) 0.2 Neut # (Auto) 2.82 Lymph # (Auto) 1.19 [place] # (Auto) 0.60 Eos # (Auto) 0.13 Baso # (Auto) 0.01 Sodium 137 Potassium 3.8 Chloride 106 Carbon Dioxide 28 BUN 17 Creatinine 1.1 Estimated Creat Clear 40.51 Estimated GFR 54 Glucose 108 Calcium 8.4
--- NOTE | 2022-03-06 15:38 | PC.NURSE ---
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 Pt reluctant on repositioning and prefers supine position, educated on off loading to encourage proper wound healing. Pt has a stage 3 pressure ulcer to her right medial buttocks and a stage 2 ulcer to her left medial buttocks, both are cleaned with Vashe, iododerm to wounds and wound beds and covered with mepilex. Nystatin is applied to pannus and folds beneath knees and arms. Pt denies pain at rest. Pt denies N/V, chest pain, and SOB.
[2022-03-06] MEDS: ACETAMINOPHEN 325 MG TABLET 975 MG PO (15:48)
[2022-03-06] MEDS: OXYCODONE 5 MG TABLET PO (19:42)
[2022-03-06] MEDS: HYDROmorphone 0.5 mg/0.5 ml inj IVP (20:13)
--- NOTE | 2022-03-06 22:40 | PC.NURSE ---
Shift [id number]- Patient is turned and repositioned with pillows for offloading. Ghosh is in place and draining. Pericares provided- mepilex to buttocks are replaced and wound care provided due to some incontinent stool and excessive moisture. She is painful with wound care- PRN pain medication provided with relief. She declines meal and eats one yogurt this shift.
[2022-03-07] VITALS (9 sets, daily range): BP systolic 120–150; BP diastolic 63–80; PULSE 66–86; RESP 18–22; TEMP 36.6–36.9; O2SAT 92–96
[2022-03-07] MEDS: 0.9 % SODIUM CHLORIDE 250 ml IV (01:24)
--- NOTE | 2022-03-07 06:58 | PC.NURSE ---
Shift Update: VSS on RA. Patient is alert and oriented x4, Uses call light appropriately to make needs known to staff. Pt denies pain on assessment. Incontinent of bowel and bladder. Ghosh in place, noticed some urine to the groin area. Requires assist of two with repo and bed mobility. BM x1 this shift.
[2022-03-07] MEDS: LACTATED RINGERS 1000 ML 1,000 ML 125 ML IV ×2 (08:03→22:10)
[2022-03-07 08:21] LABS: Basophils Percent Auto 0.5 % (0.0-3.0); Eosinophils Percent Auto 1.8 % (0.0-7.0); Hematocrit 41.7 % (33.0-51.0); Hemoglobin* 12.8 gm/dL (12.0-16.0); Immature Granulocytes Pct Auto 0.2 %; Lymphocytes Percent Auto 24.9 % (20-44); Mean Corpuscular HGB Conc 31 gm/dL (32-36); Mean Corpuscular Hemoglobin 27 pg (26-34); Mean Corpuscular Volume 87 fL (80-100); Monocytes Percent Auto 11.3 % (0.0-11.0); Neutrophils Percent Auto 61.3 % (42.0-72.0); Platelet Count* 170 K/uL (140-440); RDW Coefficient of Variation % 14.3 % (11.5-15.5); Red Blood Count 4.81 m/uL (4.00-5.20); White Blood Count* 4.41 K/uL (4.50-11.00)
[2022-03-07 08:27] LABS: Slide Review Reflex No
[2022-03-07 08:37] LABS: Chloride* 107 mmol/L (96-114)
[2022-03-07 08:38] LABS: Sodium* 140 mmol/L (135-149)
[2022-03-07 08:40] LABS: Creatinine* 0.9 mg/dL (0.5-1.5); Est. Creatinine Clearance* 44.56; Estimated Glomerular Filt Rate 68 ml/min
[2022-03-07 08:41] LABS: Blood Urea Nitrogen* 13 mg/dL (7-30); Calcium* 8.5 mg/dL (8.4-10.6); Carbon Dioxide* 26 mmol/L (20-32); Glucose* 87 mg/dL (60-115)
[2022-03-07] MEDS: LACTOBACILLUS ACIDOPHILUS 1 TABLET 1 TAB PO ×2 (09:21→17:23)
[2022-03-07] MEDS: DIGOXIN 250 MCG TABLET PO (09:21)
[2022-03-07] MEDS: APIXABAN 5 MG TABLET PO ×2 (09:22→20:29)
[2022-03-07] MEDS: METOPROLOL TARTRATE 100 MG TABLET PO ×2 (09:22→20:29)
[2022-03-07] MEDS: OXYCODONE 5 MG TABLET PO ×2 (09:22→17:23)
[2022-03-07] MEDS: NYSTATIN POWDER 1 APPLIC TOPICAL ×2 (09:24→20:30)
[2022-03-07 11:49] LABS: Appearance Urine Cloudy (Clear); Bilirubin Urine 1+ (Negative); Blood Urine 3+ (Negative); Color Urine Red (Yellow); Glucose Urine Negative (Negative); Ketones Urine 1+ (Negative); Leukocyte Esterase Urine Trace (Negative); Nitrite Urine Negative (Negative); Protein Urine 2+ (Negative); Specific Gravity Urine 1.015 (1.000-1.030); Urobilinogen Urine 0.2 (0.2-1.0); pH Urine 5.5 (5.0-8.5)
[2022-03-07 12:31] LABS: Coarse Granular Casts Urine Few; Squamous Epithelial Cell Urine Few (None-Few); WBC Urine >100 (0-5)
[2022-03-07 13:43] LABS: C.Difficile Negative (Negative); CDIFFEPI 027 PRESUMPTIVE NEGATIVE (Negative)
--- NOTE | 2022-03-07 15:50 | P.IMPN_ITS ---
Progress Note: A&P Assessment and plan (1) Atrial flutter with rapid ventricular response: Problem details: - on admission, patient placed on a diltiazem GTT - transitioned well to oral metoprolol and digoxin (off of diltiazem gtt 03/04) - Eliquis for prophylaxis - discussed case with Dr. Medina of Cardiology on 03/06: Patient remains hemodynamically stable and rate controlled at this time, outpatient cardiology follow-up is appropriate to discuss cardioversion (no need for urgent transfer to tertiary care facility) - TTE obtained 03/03 Final Impressions: 1. Technically very limited exam. 2. Normal LV size, normal global systolic function with an estimated EF of 60 - 65%. 3. Enlarged RV w/ reduced function, incompletely visualized. 4. Moderately enlarged left atrium. 5. No hemodynamically significant valve disease detected. Status: Acute Assessment and Plan: Rate remains stable and controlled. (2) Fall: Problem details: - secondary to weakness and deconditioning Status: Acute Assessment and Plan: Continue PT and OT. Needs TCU upon discharge. No TCU bed available. No safe discharge option at this time. (3) Incontinence associated dermatitis: Problem details: - williamson in place, appreciate wound care recs Status: Acute (4) Stage III pressure ulcer of buttock: Status: Acute Assessment and Plan: Continue wound care. (5) Pressure ulcer of buttock: Problem details: - General surgery following, I&D in OR 03/04. Dr. Dwayne Don initiated on admission, discontinued on 03/06 Status: Acute (6) Lymphedema associated with obesity: Status: Acute (7) Obesity: Status: Acute (8) Self neglect: Status: Acute (9) Weakness generalized: Problem details: - PT and OT following, fall risk. Requiring assistance with ADLs - when medically stable, will require TCU placement Status: Acute (10) Hematuria: Problem details: Possibly secondary to over distended bladder upon presentation combined with anticoagulation with Eliquis for atrial flutter. Renal ultrasound 03/04/2022 was unremarkable. Hemoglobin stable. UA repeated today shows elevated urine wbc's, culture is pending. Will likely need outpatient urology consultation. Status: Acute Subjective Time Seen by Provider: 10:41 Date Seen: 03/07/22 Interval history: Emily complains of liquidy diarrhea 3 times already this morning. The diarrhea is painful as it touches the ulcers on her buttocks and she expresses embarrassment as it takes a while to clean everything up afterward. She tells me she is otherwise doing well and has no other complaints. Her nurse, however, notes that Emily has ongoing hematuria. I have reviewed the provider notes and studies. She had a renal ultrasound 3 days ago which was unremarkable. She had a UA on 03/03/2022 that showed 3+ blood and 5-10 rbc's. Urine culture was negative. Exam Narrative: Exam Narrative: General: No acute distress. Awake, alert, oriented x3. No pallor. No jaundice. Oropharynx: Clear. Mucous membranes moist. Cardiovascular: Regular rate and rhythm. No murmurs, gallops, or rubs. Respiratory: Clear to auscultation bilaterally. No wheezes or crackles. Abdomen: Bowel sounds present. Soft, nondistended, nontender. Const: Vital Signs, click to edit/add: Vital Signs - 24 hr 03/07/22 03:00 03/07/22 07:34 03/07/22 09:16 Temperature 97.8 F Pulse Rate 68 Pulse Rate [Pulse Oximeter] 68 Respiratory Rate 18 20 Blood Pressure [Le ft Arm] 137/74 Pulse Oximetry 92 95 Oxygen Delivery Me thod Room Air Room Air 03/07/22 09:16 03/07/22 09:21 03/06/22 16:20 Temperature 98.5 F Pulse Rate 72 71 Pulse Rate [Pulse Oximeter] 72 Respiratory Rate 20 Blood Pressure [Le ft Arm] 144/74 H Pulse Oximetry 95 [facility] 03/06/22 20:00 03/06/22 23:00 03/06/22 23:00 Temperature 97.9 F 97.8 F Pulse Rate Pulse Rate [Pulse Oximeter] 64 67 67 Respiratory Rate 16 18 18 Blood Pressure [Le ft Arm] 126/75 117/69 Pulse Oximetry 93 94 Oxygen Delivery [place] [facility] Room Air Room Air 03/06/22 23:00 Temperature Pulse Rate Pulse Rate [Pulse Oximeter] Respiratory Rate Blood Pressure [Le ft Arm] Pulse Oximetry 94 Oxygen Delivery [place] [facility]od Room Air Labs Labs: Laboratory Results - last 24 hr 03/07/22 03/07/22 03/07/22 07:50 07:50 11:38 WBC 4.41 L RBC 4.81 Hgb 12.8 Hct 41.7 MCV 87 MCH 27 MCHC 31 L RDW Coeff of Sal 14.3 Plt Count 170 Neut % (Auto) 61.3 Lymph % (Auto) 24.9 [place] % (Auto) 11.3 H Eos % (Auto) 1.8 Baso % (Auto) 0.5 Neut # (Auto) 2.70 Lymph # (Auto) 1.10 [place] # (Auto) 0.50 Eos # (Auto) 0.10 Baso # (Auto) 0.00 Sodium 140 Potassium 4.0 Chloride 107 Carbon Dioxide 26 BUN 13 Creatinine 0.9 Estimated Creat Clear 44.56 Estimated GFR 68 Glucose 87 Calcium 8.5 Urine Color Urine Appearance Urine pH Ur Specific [place] Urine Protein Urine Glucose (UA) Urine Ketones Urine Blood Urine Nitrite Urine Bilirubin Urine Urobilinogen Ur Leukocyte Esterase Urine RBC Urine WBC Ur Squamous Epith Cells Urine Bacteria Coarse Granular Casts Stl C.difficile Tox PCR Negative St C. diff Tox Epid 027 PRESUMPTIVE NEGATIVE 03/07/22 11:38 WBC RBC Hgb Hct MCV MCH MCHC RDW Coeff of Sal Plt Count Neut % (Auto) Lymph % (Auto) [place] % (Auto) Eos % (Auto) Baso % (Auto) Neut # (Auto) Lymph # (Auto) [place] # (Auto) Eos # (Auto) Baso # (Auto) Sodium Potassium Chloride Carbon Dioxide BUN Creatinine Estimated Creat Clear Estimated GFR Glucose Calcium Urine Color Red A Urine Appearance Cloudy A Urine pH 5.5 Ur Specific [place] 1.015 Urine Protein 2+ A Urine Glucose (UA) Negative Urine Ketones 1+ A Urine Blood 3+ A Urine Nitrite Negative Urine Bilirubin 1+ A Urine Urobilinogen 0.2 Ur Leukocyte Esterase Trace A Urine RBC 2-5 A Urine WBC >100 A Ur Squamous Epith Cells Few Urine Bacteria None Coarse Granular Casts Few A Stl C.difficile Tox PCR St C. diff Tox Epid 027
[2022-03-07] MEDS: LOPERAMIDE HCL 2 MG CAPSULE 4 MG PO (18:13)
--- NOTE | 2022-03-07 19:47 | PC.NURSE ---
: Pt. pleasant and interactive. Up to chair and BSC x1 w/Ax3 and ceiling life, very heavy assist especially w/rolling in bed. Pain in buttock rated 5-6/10, alleviated w/repositioning and PRN medication. Dressings changed throughout shift to this area several times d/t episodes of loose stool.Very painful w/changes/wiping. Tele reading atrial flutter w/regular QRS. Ghosh draining tea-colored/bloody urine at start of shift, irrigated w/good return, and straw colored by end of shift w/few clots noted in tube. C-diff sample sent; negative. UA sent. No new orders. Pt. declined to get to chair for evening meal. No dressing changes this shift on lower extremities, per PRN status.
[2022-03-07] MEDS: SODIUM CHLORIDE 0.9 % (FLUSH) 10 ML SYRINGE 5 ML IVF (20:29)
[2022-03-08] VITALS (8 sets, daily range): BP systolic 126–144; BP diastolic 63–89; PULSE 66–80; RESP 18–20; TEMP 36.6–36.8; O2SAT 91–95
--- NOTE | 2022-03-08 05:57 | PC.NURSE ---
VSS on RA. Patient is alert and oriented x4, able to communicate needs to staff. Patient denies pain this shift. She requires assist 2-3 with transfers and bed mobility. Patient incontinent of bowel, williamson cath in place and draining adequately. Wound dressing changed with each incontinent episode x2. Patient is stable, call light within reach.
[2022-03-08] MEDS: METOPROLOL TARTRATE 100 MG TABLET PO ×2 (08:47→20:42)
[2022-03-08] MEDS: NYSTATIN POWDER 1 APPLIC TOPICAL ×2 (08:47→20:43)
[2022-03-08] MEDS: LACTOBACILLUS ACIDOPHILUS 1 TABLET 1 TAB PO ×3 (08:47→18:57)
[2022-03-08] MEDS: DIGOXIN 250 MCG TABLET PO (08:47)
[2022-03-08] MEDS: APIXABAN 5 MG TABLET PO ×2 (08:47→20:42)
[2022-03-08] MEDS: LOPERAMIDE HCL 2 MG CAPSULE PO ×3 (08:48→23:47)
[2022-03-08] MEDS: SODIUM CHLORIDE 0.9 % (FLUSH) 10 ML SYRINGE 5 ML IVF ×2 (08:48→20:43)
[2022-03-08] MEDS: LACTATED RINGERS 1000 ML 1,000 ML 125 ML IV ×2 (08:50→16:55)
[2022-03-08] MEDS: ACETAMINOPHEN 325 MG TABLET 975 MG PO ×2 (09:15→19:52)
--- NOTE | 2022-03-08 13:23 | PM.IMPN1 ---
Progress Note: A&P Assessment and plan (1) Atrial flutter with rapid ventricular response: Problem details: - on admission, patient placed on a diltiazem GTT - transitioned well to oral metoprolol and digoxin (off of diltiazem gtt 03/04) - Eliquis for prophylaxis - discussed case with Dr. Medina of Cardiology on 03/06: Patient remains hemodynamically stable and rate controlled at this time, outpatient cardiology follow-up is appropriate to discuss cardioversion (no need for urgent transfer to tertiary care facility) - TTE obtained 03/03 Final Impressions: 1. Technically very limited exam. 2. Normal LV size, normal global systolic function with an estimated EF of 60 - 65%. 3. Enlarged RV w/ reduced function, incompletely visualized. 4. Moderately enlarged left atrium. 5. No hemodynamically significant valve disease detected. Status: Acute Assessment and Plan: Rate remains stable and controlled. Discontinue telemetry. (2) Fall: Problem details: - secondary to weakness and deconditioning Status: Acute Assessment and Plan: Continue PT and OT. Needs TCU upon discharge. No TCU bed available. No safe discharge option at this time. (3) Incontinence associated dermatitis: Problem details: - williamson in place, appreciate wound care recs Status: Acute (4) Stage III pressure ulcer of buttock: Status: Acute Assessment and Plan: Continue wound care. (5) Pressure ulcer of buttock: Problem details: - General surgery following, I&D in OR 03/04. Dr. Dwayne Don initiated on admission, discontinued on 03/06 Status: Acute (6) Lymphedema associated with obesity: Status: Acute (7) Obesity: Status: Acute (8) Self neglect: Status: Acute (9) Weakness generalized: Problem details: - PT and OT following, fall risk. Requiring assistance with ADLs - when medically stable, will require TCU placement Status: Acute (10) Hematuria: Problem details: Possibly secondary to over distended bladder upon presentation combined with anticoagulation with Eliquis for atrial flutter. Renal ultrasound 03/04/2022 was unremarkable. Hemoglobin stable. UA repeated today shows elevated urine wbc's, culture is pending. Will likely need outpatient urology consultation. Status: Acute Plan Medically stable. Awaiting placement. Subjective Time Seen by Provider: 07:42 Date Seen: 03/08/22 Interval history: Emily is feeling better today. She has not had any diarrhea since a dose of Imodium yesterday. She has no other complaints. Exam Narrative: Exam Narrative: General: No acute distress. Awake, alert, oriented x3. No pallor. No jaundice. Oropharynx: Clear. Mucous membranes moist. Cardiovascular: Regular rate and rhythm. No murmurs, gallops, or rubs. Respiratory: Clear to auscultation bilaterally. No wheezes or crackles. Abdomen: Bowel sounds present. Soft, nondistended, nontender. Const: Vital Signs, click to edit/add: Vital Signs - 24 hr 03/07/22 15:00 03/07/22 15:35 03/07/22 15:35 Temperature 98.2 F Pulse Rate 69 Pulse Rate [Pulse Oximeter] 71 69 Respiratory Rate 20 22 Blood Pressure [Le ft Arm] 150/80 H Pulse Oximetry 94 Oxygen Delivery Me thod Room Air 03/07/22 15:35 03/07/22 19:00 03/07/22 23:00 Temperature 98 F Pulse Rate Pulse Rate [Pulse Oximeter] 86 86 Respiratory Rate 22 20 20 Blood Pressure [Le ft Arm] 120/76 Pulse Oximetry 96 93 Oxygen Delivery Me thod Room Air Room Air 03/07/22 23:00 03/07/22 23:00 03/08/22 03:00 Temperature 97.8 F 97.8 F Pulse Rate Pulse Rate [Pulse Oximeter] 66 66 Respiratory Rate 20 18 18 Blood Pressure [Le ft Arm] 130/63 130/63 Pulse Oximetry 93 93 93 Oxygen Delivery [place] thod Room Air Room Air Room Air 03/07/22 23:00 03/08/22 08:47 03/08/22 08:33 Temperature Pulse Rate 69 70 Pulse Rate [Pulse Oximeter] Respiratory Rate Blood Pressure [Le ft Arm] Pulse Oximetry 94 Oxygen Delivery [place] thod Room Air 03/08/22 08:33 03/08/22 07:25 03/08/22 11:00 Temperature 98.0 F 98.2 F Pulse Rate 70 Pulse Rate [Pulse Oximeter] 70 79 Respiratory Rate 20 20 Blood Pressure [Le ft Arm] 132/68 126/88 Pulse Oximetry 94 95 Oxygen Delivery [place] thod Room Air Room Air Labs Labs: Laboratory Results - last 24 hr 03/07/22 11:38 Stl C.difficile Tox PCR Negative St C. diff Tox Epid 027 PRESUMPTIVE NEGATIVE
[2022-03-08] MEDS: OXYCODONE 5 MG TABLET PO ×2 (13:28→17:00)
--- NOTE | 2022-03-08 19:54 | PC.NURSE ---
Pt pleasant and cooperative with cares. Ceiling lift for bedside commode, dressing changes, and repositioning. Tylenol and oxycodone for dressing changes on the buttocks. Pt educated on importance of nutritional supplementations for wound healing.
[2022-03-08] MEDS: diphenhydrAMINE 25 MG CAPSULE PO (23:49)
[2022-03-09] VITALS (12 sets, daily range): BP systolic 112–155; BP diastolic 63–92; PULSE 67–95; RESP 18; TEMP 36.5–36.7; O2SAT 91–97
[2022-03-09] MEDS: LACTATED RINGERS 1000 ML 1,000 ML 125 ML IV ×4 (00:15→23:59)
--- NOTE | 2022-03-09 06:46 | PC.NURSE ---
[id number]: patient turns assist of 2 in bed for dressing changes/pericare/repo. patient cooperative and able to assist with turning self. dressings to buttocks changed twice this shift due to soiling, patinet tolerated well. inc. BM X2 during the evening, no further stools overnight. tele continues to show A flutter rate 60s-70s
[2022-03-09 07:20] LABS: Digoxin* 1.1 ng/mL (0.8-2.0)
[2022-03-09] MEDS: DIGOXIN 250 MCG TABLET PO (09:00)
[2022-03-09] MEDS: METOPROLOL TARTRATE 100 MG TABLET PO ×2 (09:00→20:59)
[2022-03-09] MEDS: LACTOBACILLUS ACIDOPHILUS 1 TABLET 1 TAB PO ×3 (09:00→19:05)
[2022-03-09] MEDS: APIXABAN 5 MG TABLET PO ×2 (09:00→20:59)
[2022-03-09] MEDS: NYSTATIN POWDER 1 APPLIC TOPICAL ×2 (09:01→20:59)
[2022-03-09] MEDS: SODIUM CHLORIDE 0.9 % (FLUSH) 10 ML SYRINGE 5 ML IVF (09:02)
[2022-03-09] MEDS: LOPERAMIDE HCL 2 MG CAPSULE PO ×4 (09:34→20:59)
--- NOTE | 2022-03-09 11:12 | CRLHL7_ITS ---
For Patients: As a result of the Cures Act, medical imaging exams and procedure reports are released immediately into your electronic medical record. You may view this report before your referring provider. If you have questions, please contact your health care provider. Indication: Postmenopausal bleeding Technique: Transabdominal imaging was performed Comparison: None Findings: The uterus is enlarged measuring 16.1 x 10.8 x 10.4 centimeters. There are too numerous to count masses identified which likely represent myomas some of which appear to be calcified. This pattern renders it difficult to evaluate the endometrium. The area that is most likely to represent the endometrium on this study is prominent at 1.5 centimeters. This is abnormal. The ovaries were not identified but there was no discrete adnexal mass. No free fluid in the cul-de-sac. Impression: 1. Enlarged heterogeneous uterus probably replaced by myomas some of which are calcified. This renders visualization of the endometrium difficult though it does appear to be prominent raising the possibility of endometrial proliferative pathology. Appropriate follow-up recommended to exclude endometrial malignancy. 2. The ovaries were not identified but there was no adnexal mass. No free fluid Dictated by Westley Guevara MD @ 03/09/2022 2:00:51 PM (Electronically Signed)
[2022-03-09] MEDS: HYDROmorphone 0.5 mg/0.5 ml inj IVP (12:59)
--- NOTE | 2022-03-09 15:01 | P.IMCN_ITS ---
Date of Consult Consult date: 03/09/22 Requesting Physician: Hospitalist Primary Care Provider: Not a Local Provider Consult Narrative Narrative: Emily Gonzalez is a 71 year old female being seen by wound services for stage 3 pressure ulcers to bilateral buttocks and BLE lymphedema. Patient was followed by gen surgery last week- OR I & D of right buttock wound. Gen surgery has signed off on patient. Wound services was asked by hospitalist team to see patient to assist with patients on going wound care needs. Upon entering room patient was laying supine, despite nursing attempt to offload patient, reports t hat patient continues to reposition her self to laying supine. Pain 7/10 when wound touched, otherwise patient feels pain is controlled. Williamson cath in place. Today wounds with appearance of healthy granulation to base, epithelization encroaching the wound edges. Wound pictures in chart under nursing tab Chronic severe lymphedema. Morbid obesity of note-Williamson in place, examination of alie region revels vaginal bleeding of unknown etiology-US pending. PFSH [facility] Medical History Lymphedema associated with obesity Obesity Weakness generalized Social History Past 12 mos, fear food will run out before able to buy more: never true In past 12 months, food didn't last until money to buy more: never true Are you following a diet prescribed by a doctor: No Are you following a special diet: No Highest level of school completed/degree received: some college, no degree Smoking Status: Never smoker Do you use any of these nicotine containing products: None Second hand tobacco smoke exposure: No How often do you have a drink containing alcohol: monthly or less Alcohol type details: no alcohol for past 5 years; daily drinker for 2 years before that AUDIT-C Alcohol total score: 1 Non-prescribed substance use: denies use Caffeine: Yes (2 cups of coffee daily) service: No Meds Home Medications and Allergies Home Medications Medication Instructions Recorded Confirmed Type No Known Home Medications 03/02/22 03/02/22 History Allergies Allergy/AdvReac Type Severity Reaction Status Date / Time No Known Drug Allergies Allergy Verified 03/02/22 11:08 Exam Narrative: Exam Narrative: General: NAD. Laying in bed. Respiratory: unlabored. Speaking in full sentences. Symmetrical rise. Alie-region: Williamson in place, vaginal bleeding of unknown etiology-US pending. Cardiac: Pedal pulses diminished, but palpable. Buttocks: Abd dressing saturated with serosang drainage, but patterned marking on abd located distal from wound appears this is vaginal drainage and not from wound. Abd over wound area has small amount of serosang drainage. Iodosorb appears crusted onto wound. Right buttock measuring [id number] 75% healthy granulation epithelialization encroaching on wound edges, 25% slough and biofilm. Alie wound WNL. Drainage serosang small amount. Left buttock measuring [id number] 75% healthy granulation, 25% slough and biofilm. Alie-wound WNL. Drainage serosang, small amount. BLE: 3+ non pitting edema. Hemosiderin staining, hyperpigmentation, hyperkeratosis Psych: Normal affect Const: Vital Signs, click to edit/add: Vital Signs - 24 hr 03/08/22 19:00 03/08/22 19:00 03/08/22 23:00 Temperature 98.3 F 98.3 F Pulse Rate 71 Pulse Rate [Pulse Oximeter] 80 77 Respiratory Rate 20 20 Blood Pressure [Le ft Arm] 134/89 144/81 H Pulse Oximetry 91 94 Oxygen Delivery [facility] Room Air Room Air 03/08/22 23:00 03/08/22 23:00 03/09/22 02:57 Temperature 98 F Pulse Rate Pulse Rate [Pulse Oximeter] 68 69 Respiratory Rate 20 20 18 Blood Pressure [Le ft Arm] 133/89 Pulse Oximetry 94 97 Oxygen Delivery [facility] Room Air Room Air 03/09/22 04:36 03/09/22 07:26 03/09/22 07:30 Temperature Pulse Rate 69 Pulse Rate [Pulse Oximeter] Respiratory Rate 18 18 Blood Pressure [Le ft Arm] Pulse Oximetry 91 Oxygen Delivery [facility] Room Air 03/09/22 07:30 03/09/22 07:30 03/09/22 09:00 Temperature 98.0 F Pulse Rate 95 Pulse Rate [Pulse Oximeter] 89 89 Respiratory Rate 18 18 Blood Pressure [Le ft Arm] 155/92 H Pulse Oximetry 91 Oxygen Delivery [facility] Room Air 03/09/22 11:35 Temperature 97.7 F Pulse Rate Pulse Rate [Pulse Oximeter] 68 Respiratory Rate 18 Blood Pressure [Le ft Arm] 144/80 H Pulse Oximetry 91 Oxygen Delivery Me thod Room Air Documenting provider has reviewed patient's vital signs: yes Skin: Skin images (female): 1. stage 3 pressure ulcer 2. stage 3 pressure ulcer 3. lymphedema 4. lymphedema Assessment and Plan Assessment and plan (1) Stage III pressure ulcer of buttock: Problem comment: stage III right buttock pressure ulcer. She also has a stage II left buttock pressure ulcer. Status: Acute (2) Incontinence associated dermatitis: Problem comment: - continue williamson - continue wound care as per surgery/Wound consult recommendations Status: Acute (3) Vaginal bleeding: Problem comment: EUA, EMB and Pap smear today Status: Acute (4) Lymphedema: Status: Acute (5) Venous insufficiency (chronic) (peripheral): Status: Acute Plan patient educated on importance of offloading pressure to her wounds to help facilitate healing. Buttock wounds: cleanse with wound cleanser, apply medihoney/alginate to wounds, cover with mepilex or abds secured with silcone tape. All these supplies can be found stocked in central supply. 2-layer coban light wraps. Dressings and wraps apply EOD and PRN if soiled. Okay to place InterDry in groin folds to help wick out moisture. Patient wound benefit from referral to nutrition services as well as to wound center upon discharge to get velcro compression wraps and set up with lymphedema pumps as these will be the best ocean transportation intermediary solutions for her.
--- NOTE | 2022-03-09 15:45 | PC.SOCIAL ---
Discharge Planning: Patient resides in apartment on [address] [place] [address] with homemaker services involved. Recommendations for rehab stay have been made, and patient expresses agreement. Patient prefers a facility close to [place] and understands that a bariatric bed will be needed, which limits facility availability. Referrals have been sent to Jenny [facility], Bernardino at [place], and Thaddeus hernandez [place]. No return communication has been received as of this time today. SW will continue to follow for d/c planning.
--- NOTE | 2022-03-09 18:08 | P.IMPN_ITS ---
Progress Note: A&P Assessment and plan (1) Atrial flutter with rapid ventricular response: Problem details: - on admission, patient placed on a diltiazem GTT - transitioned well to oral metoprolol and digoxin (off of diltiazem gtt 03/04) - Eliquis for prophylaxis - discussed case with Dr. Medina of Cardiology on 03/06: Patient remains hemodynamically stable and rate controlled at this time, outpatient cardiology follow-up is appropriate to discuss cardioversion (no need for urgent transfer to tertiary care facility) - TTE obtained 03/03 Final Impressions: 1. Technically very limited exam. 2. Normal LV size, normal global systolic function with an estimated EF of 60 - 65%. 3. Enlarged RV w/ reduced function, incompletely visualized. 4. Moderately enlarged left atrium. 5. No hemodynamically significant valve disease detected. Status: Acute Assessment and Plan: Rate remains stable and controlled. (2) Fall: Problem details: - secondary to weakness and deconditioning Status: Acute Assessment and Plan: Continue PT and OT. Needs TCU upon discharge. No TCU bed available. No safe discharge option at this time. (3) Incontinence associated dermatitis: Problem details: - williamson in place, appreciate wound care recs Status: Acute (4) Stage III pressure ulcer of buttock: Status: Acute Assessment and Plan: Continue wound care. (5) Pressure ulcer of buttock: Problem details: - General surgery following, I&D in OR 03/04. Dr. Dwayne Don initiated on admission, discontinued on 03/06 Status: Acute (6) Lymphedema associated with obesity: Status: Acute (7) Obesity: Status: Acute (8) Self neglect: Status: Acute (9) Weakness generalized: Problem details: - PT and OT following, fall risk. Requiring assistance with ADLs - TCU placement Status: Acute (10) Hematuria: Problem details: Possibly secondary to over distended bladder upon presentation combined with anticoagulation with Eliquis for atrial flutter. Renal ultrasound 03/04/2022 was unremarkable. Hemoglobin stable. UA repeated today shows elevated urine wbc's, culture is pending. Will likely need outpatient urology consultation. Status: Acute (11) Vaginal bleeding: Problem details: postmenopausal. I spoke with Dr. Barillas who recommended transvagninal US and out patient endometrial biopsy. TV US ordered. Status: Acute Plan Medically stable; vaginal bleeding can be further worked up as an outpatient. Awaiting placement. Subjective Time Seen by Provider: 10:03 Date Seen: 03/09/22 Interval history: Emily has no complaints. Nursing noted vaginal bleeding during paricares overnight. Emily says that she has a period about once a year with some cramping followed by bleeding, most recently this happened 1 year ago. She thought she was done menstruating and is surprised that she has vaginal bleeding today. She denies any other symptoms. She had a at the age of 20 for which she had an . She had no other pregnancies. She has not had any D&Cs or other gynecologic procedures. She had Pap smears when she was younger, but none in many years. Exam Narrative: Exam Narrative: General:? No acute distress.? Awake, alert, oriented x3.? No pallor.? No jaundice. Oropharynx:? Clear.? Mucous membranes moist. Cardiovascular:? Irregularly irregular.? No murmurs, gallops, or rubs. Respiratory:? Clear to auscultation bilaterally.? No wheezes or crackles. Abdomen:? Bowel sounds present.? Soft, nondistended, nontender. Const: Vital Signs, click to edit/add: Vital Signs - 24 hr 03/08/22 19:00 03/08/22 19:00 03/08/22 23:00 Temperature 98.3 F 98.3 F Pulse Rate 71 Pulse Rate [Pulse Oximeter] 80 77 Respiratory Rate 20 20 Blood Pressure [Le ft Arm] 134/89 144/81 H Pulse Oximetry 91 94 Oxygen Delivery Me thod Room Air Room Air 03/08/22 23:00 03/08/22 23:00 03/09/22 02:57 Temperature 98 F Pulse Rate Pulse Rate [Pulse Oximeter] 68 69 Respiratory Rate 20 20 18 Blood Pressure [Le ft Arm] 133/89 Pulse Oximetry 94 97 Oxygen Delivery In thod Room Air Room Air 03/09/22 04:36 03/09/22 07:26 03/09/22 07:30 Temperature Pulse Rate 69 Pulse Rate [Pulse Oximeter] Respiratory Rate 18 18 Blood Pressure [Le ft Arm] Pulse Oximetry 91 Oxygen Delivery In thod Room Air 03/09/22 07:30 03/09/22 07:30 03/09/22 09:00 Temperature 98.0 F Pulse Rate 95 Pulse Rate [Pulse Oximeter] 89 89 Respiratory Rate 18 18 Blood Pressure [Le ft Arm] 155/92 H Pulse Oximetry 91 Oxygen Delivery In thod Room Air 03/09/22 11:35 03/09/22 15:07 03/09/22 15:48 Temperature 97.7 F 98.1 F Pulse Rate 67 Pulse Rate [Pulse Oximeter] 68 68 Respiratory Rate 18 18 Blood Pressure [Le ft Arm] 144/80 H 112/63 Pulse Oximetry 91 94 [facility] 03/09/22 15:56 03/09/22 15:57 Temperature Pulse Rate Pulse Rate [Pulse Oximeter] 68 Respiratory Rate 18 18 Blood Pressure [Le ft Arm] Pulse Oximetry 95 [facility] Labs Labs: Laboratory Results - last 24 hr 03/09/22 06:04 Digoxin 1.1
--- NOTE | 2022-03-09 19:40 | PC.NURSE ---
end of shift. ? Pt is pleasant and cooperative.? HR has been 70's-80? A-Flutter. ?She has been T&R q2hrs.? she had 1 BM this and Imodium was given. ? Drsg on buttocks changed x2.? W/C came and changed it also. ? Ghosh draining yellow? urine.? she is putting out 150 or more every 4 hours. LR infusing. IV is patent. ? 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 she is eating and drinking.? 0.5 IVP Dilaudid with dressing change. weight was double checked on 2 beds 170 in bariatric bed and 178 on hospital bed, she had a sheet under her and 2 senior bi developer pads. was updated.
[2022-03-09] MEDS: diphenhydrAMINE 25 MG CAPSULE PO (20:59)
[2022-03-10] VITALS (8 sets, daily range): BP systolic 119–174; BP diastolic 77–97; PULSE 67–100; RESP 12–24; TEMP 36.3–36.8; O2SAT 92–100
[2022-03-10] MEDS: ACETAMINOPHEN 325 MG TABLET 975 MG PO (00:01)
--- NOTE | 2022-03-10 05:10 | PC.NURSE ---
[id number]: 2X small loose BM this shift, dressing changed 2X due to BM soiling. Ghosh patent and draining. patient turn and repo in bed with assist of 2-3 staff, patient able to assist with rolling and repo in bed. pain has improved with dressing changes patient reports, see emar for meds given. patient was awake most of the night watching TV, states she just couldn't sleep sleep menu offered but patient declined and stated she will take a nap today
[2022-03-10 06:38] LABS: Basophils Percent Auto 0.3 % (0.0-3.0); Eosinophils Percent Auto 2.8 % (0.0-7.0); Hematocrit 41.7 % (33.0-51.0); Hemoglobin* 12.4 gm/dL (12.0-16.0); Immature Granulocytes Pct Auto 0.3 %; Lymphocytes Percent Auto 28.9 % (20-44); Mean Corpuscular HGB Conc 30 gm/dL (32-36); Mean Corpuscular Hemoglobin 26 pg (26-34); Mean Corpuscular Volume 89 fL (80-100); Monocytes Percent Auto 11.3 % (0.0-11.0); Neutrophils Percent Auto 56.4 % (42.0-72.0); Platelet Count* 178 K/uL (140-440); RDW Coefficient of Variation % 14.5 % (11.5-15.5); White Blood Count* 3.91 K/uL (4.50-11.00)
[2022-03-10 06:40] LABS: Slide Review Reflex Yes
[2022-03-10 06:57] LABS: Chloride* 108 mmol/L (96-114); Potassium* 4.7 mmol/L (3.6-5.1); Sodium* 141 mmol/L (135-149)
[2022-03-10 07:00] LABS: Blood Urea Nitrogen* 11 mg/dL (7-30); Carbon Dioxide* 34 mmol/L (20-32); Creatinine* 0.9 mg/dL (0.5-1.5); Est. Creatinine Clearance* 44.56; Estimated Glomerular Filt Rate 68 ml/min
[2022-03-10 07:01] LABS: Calcium* 8.8 mg/dL (8.4-10.6); Glucose* 94 mg/dL (60-115)
[2022-03-10 07:23] LABS: Slide Review Acceptable Review (Acceptable)
[2022-03-10] MEDS: LACTOBACILLUS ACIDOPHILUS 1 TABLET 1 TAB PO ×3 (07:35→18:13)
[2022-03-10] MEDS: LACTATED RINGERS 1000 ML 1,000 ML 125 ML IV ×2 (08:19→16:31)
[2022-03-10] MEDS: APIXABAN 5 MG TABLET PO ×2 (09:05→22:02)
[2022-03-10] MEDS: NYSTATIN POWDER 1 APPLIC TOPICAL ×2 (09:05→22:03)
[2022-03-10] MEDS: DIGOXIN 250 MCG TABLET PO (09:05)
[2022-03-10] MEDS: METOPROLOL TARTRATE 100 MG TABLET PO ×2 (09:05→22:02)
--- NOTE | 2022-03-10 10:24 | PM.GYNCN1 ---
HEPATOLOGY PHYSICIAN - CN: HPI Data of Consult Time Seen by Provider: 11:00 Date Seen: 03/10/22 Patient: Other Consult date: 03/10/22 Requesting Physician: Adriano Mujica MD Primary Care Provider: Not a Local Provider Consult Narrative Reason for consult: vaginal bleeding Narrative: Emily Gonzalez is a 71 year old female who is currently hospitalized due to afib with RVR, Stage III pressure ulcers, and generalized weakness. HEPATOLOGY PHYSICIAN team asked to consult about vaginal bleeding. Patient states that she underwent menopause in her early 50s. She's reports years of intermittent vaginal bleeding in the last 10 years, most recently 8 months ago. She states that every once in while she'd have a period. Usually happens a couple of times a year. She's never been worked up for it. She also can't remember the last time she had a pap smear, maybe 20 years ago. Her TVUS on 03/09 showed: Uterus measures: 16.1 x 10.8 x 10.4 cm 1. Enlarged heterogeneous uterus probably replaced by myomas some of which are calcified. This renders visualization of the endometrium difficult though it does appear to be prominent raising the possibility of endometrial proliferative pathology. Appropriate follow-up recommended to exclude endometrial malignancy. 2. The ovaries were not identified but there was no adnexal mass. No free fluid I discussed with her endometrial sampling for rule out endometrial malignancy. Additionally would like to Pap smear given that she stopped her pap prior to the general recommended cessation age of 65 y.o. I did discuss with her as well that should she have malignancy, she is a very poor surgical candidate, as well as a poor candidate for chemo/radiation as well. Additionally, given her endometrial distortion due to the fibroids, it's unlikely we can place an IUD. Despite this, she would like to proceed with endometrial sampling to see what's going on. Patient denies fever, chills, abdominal pain, or dizziness. Endorses SOB, palpitation, pain on her legs, back and buttock. cc:: CC: Adriano Mujica MD [facility] Medical History Lymphedema associated with obesity Obesity Weakness generalized Social History Past 12 mos, fear food will run out before able to buy more: never true In past 12 months, food didn't last until money to buy more: never true Are you following a diet prescribed by a doctor: No Are you following a special diet: No Highest level of school completed/degree received: some college, no degree Smoking Status: Never smoker Do you use any of these nicotine containing products: None Second hand tobacco smoke exposure: No How often do you have a drink containing alcohol: monthly or less Alcohol type details: no alcohol for past 5 years; daily drinker for 2 years before that AUDIT-C Alcohol total score: 1 Non-prescribed substance use: denies use Caffeine: Yes (2 cups of coffee daily) service: No Meds Home Medications and Allergies Home Medications Medication Instructions Recorded Confirmed Type No Known Home Medications 03/02/22 03/02/22 History Allergies Allergy/AdvReac Type Severity Reaction Status Date / Time No Known Drug Allergies Allergy Verified 03/02/22 11:08 HEPATOLOGY PHYSICIAN - Exam Physical Exam: Vital signs: Temp Pulse Resp BP Pulse Ox O2 Del Method 97.3 F L 69 12 172/94 H 93 03/10/22 07:00 03/10/22 09:05 03/10/22 07:00 03/10/22 07:00 03/10/22 07:00 03/10/22 07:00 Narrative: Pelvic exam: Mons normal, clitoris normal, urethral meatus normal. Labia minora and majora normal in appearance bilaterally. Perineum and anus normal appearance. Vaginal introitus normal appearance. Vaginal pink and well rugated, small amount of bleeding noted in vaginal vault. Unable to visualized the cervix due to patient's tolerance of exam and habitus. Bimanual exam reveals cervix to be small, high, and possibly stenotic. She has CMT. Unable to palpate uterus or the adnexa due to habitus. HEPATOLOGY PHYSICIAN - Results Labs Labs: Short CBC 03/10/22 Range/Units 06:03 WBC 3.91 L (4.50-11.00) K/uL Hgb 12.4 (12.0-16.0) gm/dL Hct 41.7 (33.0-51.0) % Plt Count 178 (140-440) K/uL BMP 03/10/22 06:03 Sodium 141 Potassium 4.7 Chloride 108 Carbon Dioxide 34 H BUN 11 Creatinine 0.9 Glucose 94 Calcium 8.8 Assessment and Plan Assessment and plan (1) Vaginal bleeding: Problem comment: Abnormal postmenopausal bleeding. I spoke with Dr. Barillas who recommended transvaginal US. This shows abnormally thickened endometrial stripe. I spoke with Dr. Wagner who attempted endometrial biopsy, but patient did not tolerate this bedside. Will await further recommendations from her - but this can also happen as outpatient. Continue seeking placement. Status: Acute Assessment and Plan: - Unable to tolerate endometrial biopsy bedside due to pain and habitus - Discussed the case with Dr. Mcmahan about exam under anesthesia, D&C. He states that patient has been under sedation prior during this hospitalization and it went well. He will assess pt. - Consent signed for EUA, D&C for 03/12/2022
[2022-03-10] MEDS: OXYCODONE 5 MG TABLET PO (10:55)
--- NOTE | 2022-03-10 11:51 | REH.PT ---
PT/OT held d/t pt undergoing endometrial biopsy.
--- NOTE | 2022-03-10 13:31 | P.IMPN_ITS ---
Progress Note: A&P Assessment and plan (1) Atrial flutter with rapid ventricular response: Problem details: - on admission, patient placed on a diltiazem GTT - transitioned well to oral metoprolol and digoxin (off of diltiazem gtt 03/04) - Eliquis for prophylaxis - discussed case with Dr. Medina of Cardiology on 03/06: Patient remains hemodynamically stable and rate controlled at this time, outpatient cardiology follow-up is appropriate to discuss cardioversion (no need for urgent transfer to tertiary care facility) - TTE obtained 03/03 Final Impressions: 1. Technically very limited exam. 2. Normal LV size, normal global systolic function with an estimated EF of 60 - 65%. 3. Enlarged RV w/ reduced function, incompletely visualized. 4. Moderately enlarged left atrium. 5. No hemodynamically significant valve disease detected. Status: Acute Assessment and Plan: Rate remains stable and controlled. (2) Fall: Problem details: - secondary to weakness and deconditioning Status: Acute Assessment and Plan: Continue PT and OT. Needs TCU upon discharge; no bed available. No safe discharge option at this time. (3) Incontinence associated dermatitis: Problem details: - continue williamson - continue wound care as per surgery/Wound consult recommendations Status: Acute (4) Stage III pressure ulcer of buttock: Problem details: Continue wound care. Status: Acute (5) Pressure ulcer of buttock: Problem details: - General surgery following, I&D in OR 03/04. Dr. Dwayne Don initiated on admission, discontinued on 03/06 Status: Acute (6) Lymphedema associated with obesity: Status: Acute (7) Obesity: Status: Acute (8) Self neglect: Status: Acute (9) Weakness generalized: Problem details: - PT and OT following, fall risk. Requiring assistance with ADLs - TCU placement Status: Acute (10) Hematuria: Problem details: Possibly secondary to over distended bladder upon presentation combined with anticoagulation with Eliquis for atrial flutter. Renal ultrasound 03/04/2022 was unremarkable. Hemoglobin stable. UA repeated today shows elevated urine wbc's, UC - no bacteria, +some yeast. Will need outpatient urology consultation. Status: Acute (11) Vaginal bleeding: Problem details: Abnormal postmenopausal bleeding. I spoke with Dr. Barillas who recommended transvagninal US. This shows abnormally thickened endometrial stripe. I spoke w ith Dr. Wagner who attempted endometrial biopsy, but patient did not tolerate this bedside. Will await further recommendations from her - but this can also happen as outpatient. Continue seeking placement. Status: Acute Subjective Time Seen by Provider: 10:27 Date Seen: 03/10/22 Interval history: Emily had no complaints this morning. Exam Narrative: Exam Narrative: General:? No acute distress.? Awake, alert, oriented x3.? No pallor.? No jaundice. Oropharynx:? Clear.? Mucous membranes moist. Cardiovascular:? Irregularly irregular.? No murmurs, gallops, or rubs. Respiratory:? Clear to auscultation bilaterally.? No wheezes or crackles. Const: Vital Signs, click to edit/add: Vital Signs - 24 hr 03/09/22 15:07 03/09/22 15:48 03/09/22 15:56 Temperature 98.1 F Pulse Rate 67 Pulse Rate [Pulse Oximeter] 68 Respiratory Rate 18 18 Blood Pressure [Le ft Arm] 112/63 Pulse Oximetry 94 95 Oxygen Delivery Ga thod Room Air Room Air 03/09/22 15:57 03/09/22 21:00 03/09/22 23:00 Temperature 98 F Pulse Rate 69 Pulse Rate [Pulse Oximeter] 68 77 Respiratory Rate 18 18 Blood Pressure [Le ft Arm] 131/78 Pulse Oximetry 92 Oxygen Delivery Ga thod Room Air 03/09/22 23:00 03/09/22 23:00 03/09/22 23:00 Temperature 98 F Pulse Rate Pulse Rate [Pulse Oximeter] 77 77 Respiratory Rate 18 18 18 Blood Pressure [Le ft Arm] 131/78 Pulse Oximetry 92 92 [facility] 03/10/22 03:48 03/10/22 07:00 03/10/22 07:00 Temperature 98 F 97.3 F L Pulse Rate Pulse Rate [Pulse Oximeter] 77 69 69 Respiratory Rate 18 12 12 Blood Pressure [Le ft Arm] 157/88 H 172/94 H Pulse Oximetry 94 93 Oxygen Delivery Ga thod Room Air Room Air 03/10/22 07:00 03/10/22 07:00 03/10/22 09:05 Temperature Pulse Rate 69 69 Pulse Rate [Pulse Oximeter] Respiratory Rate 12 Blood Pressure [Le ft Arm] Pulse Oximetry 93 Oxygen Delivery Me thod Room Air 03/10/22 11:00 Temperature 97.5 F L Pulse Rate Pulse Rate [Pulse Oximeter] 68 Respiratory Rate 24 Blood Pressure [Le ft Arm] 156/89 H Pulse Oximetry 92 Oxygen Delivery Me thod Room Air Documenting provider has reviewed patient's vital signs: yes Labs Labs: Laboratory Results - last 24 hr 03/10/22 03/10/22 06:03 06:03 WBC 3.91 L RBC 4.70 Hgb 12.4 Hct 41.7 MCV 89 MCH 26 MCHC 30 L RDW Coeff of Sal 14.5 Plt Count 178 Neut % (Auto) 56.4 Lymph % (Auto) 28.9 [place] % (Auto) 11.3 H Eos % (Auto) 2.8 Baso % (Auto) 0.3 Neut # (Auto) 2.20 Lymph # (Auto) 1.10 [place] # (Auto) 0.40 Eos # (Auto) 0.10 Baso # (Auto) 0.00 Diff Slide Review Acceptable Review Sodium 141 Potassium 4.7 Chloride 108 Carbon Dioxide 34 H BUN 11 Creatinine 0.9 Estimated Creat Clear 44.56 Estimated GFR 68 Glucose 94 Calcium 8.8
--- NOTE | 2022-03-10 14:25 | PC.NURSE ---
End of Shift: Patient pleasant and cooperative. Patient vitally stable, lungs clear, BS WNL, IV running LR at 125. Patient rates overall pain at most 6/10, 10 mg of oxy given once for uterine biopsy. OB procedure was an unsuccessful attempt today. Patient has not had lunch or dinner. Patient had a cookie in the morning and is currently working on a [employer]. Patient ceiling lift. Patient had one mod loose BM on commode, williamson intact and draining, clear yellow. Buttock wounds cleaned and changed as ordered. Meplix applied to right LE to prevent sore.
--- NOTE | 2022-03-10 21:48 | PC.SOCIAL ---
Discharge planning- Phone call to Annette at [facility] in [place]. Annette informed [facility]. Phone call to [facility] [place] and [facility] in [place]. Both facilities are currently assessing pt for possible admission. Social Work will follow up as necessary.
--- NOTE | 2022-03-10 21:51 | PC.SOCIAL ---
Discharge planning- Phone call to [facility] to follow up on referral that was sent. Ita in admissions informed that [facility] is declining pt for admission due to not having the staffing to provide care for pt since pt has tube feeding. Facility is unable to meet pt's needs. Phone call to Annette at [facility] in [place]. Annette informed that pt was declined for admission due to not being able to meet pt's needs with low staffing. Phone call to [facility] in [place] and they are currently assessing pt for possible admission. Social Work will follow up as necessary.
--- NOTE | 2022-03-10 23:14 | PC.NURSE ---
Shift Note [id number]: Pt a/o and able to verbalize needs. Dressings to bilateral LE's changed this evening and legs/feet cleansed with soapy water and dried as well as lotion applied. These are to be changed EOD. Dressing change to buttock wounds as well. Both areas rinsed with sterile water and vashe. Iodine cream applied and Mepilex placed over wounds. Pt turned and repositioned Q2H. She initially refused to move to chair for supper but was successfully redirected with a second approach. Pt stated it was a day in reference to her gynecological procedure this afternoon. She stated it was uncomfortable and stressful and she just wanted to take it easy this evening.
[2022-03-10] MEDS: diphenhydrAMINE 25 MG CAPSULE PO (23:31)
[2022-03-11] VITALS (9 sets, daily range): BP systolic 129–157; BP diastolic 77–111; PULSE 67–84; RESP 18–26; TEMP 36.3–37.1; O2SAT 90–94
[2022-03-11] MEDS: LACTATED RINGERS 1000 ML 1,000 ML 125 ML IV ×2 (00:02→07:39)
--- NOTE | 2022-03-11 05:44 | PC.NURSE ---
[id number] Pt rested well during night, denies pain, shifted weight in bed throughout night, pt was able to assist minimally. williamson patent and draining, remains on IV fluids, denies SOB, chest pain, headache, N/V.
[2022-03-11] MEDS: DIGOXIN 250 MCG TABLET PO (09:43)
[2022-03-11] MEDS: APIXABAN 5 MG TABLET PO ×2 (09:44→20:47)
[2022-03-11] MEDS: LACTOBACILLUS ACIDOPHILUS 1 TABLET 1 TAB PO ×3 (09:44→19:28)
[2022-03-11] MEDS: METOPROLOL TARTRATE 100 MG TABLET PO ×2 (09:44→20:47)
[2022-03-11] MEDS: NYSTATIN POWDER 1 APPLIC TOPICAL ×2 (09:45→20:48)
[2022-03-11] MEDS: LOPERAMIDE HCL 2 MG CAPSULE PO ×2 (14:18→19:29)
[2022-03-11] MEDS: HYDROmorphone 0.5 mg/0.5 ml inj IVP (14:18)
--- NOTE | 2022-03-11 14:25 | PC.NURSE ---
Please see eMar for medications provided on day shift. Pt up to BSC with ceiling lift and assist of 4, pericares given after BM, bed linens changed. Pt to chair w/4 assist on lift for her PT/OT and lunch. Pt has denied pain. New order to [facility]. Report provided to Bouchra RN who assumed care of this patient at 1300 pm. Coban wraps are changed Q48 hours, not due today. Pat will perform wound care with assist of CNAs when pt is back to bed.
--- NOTE | 2022-03-11 15:44 | PC.SOCIAL ---
Discharge planning- Made phone calls to the following SNF's to locate SNF placement for pt. 1. [facility] [place]- Phone call to Angie in admissions. Angie has been out with [facility] and today is her first day back. Referrals are backed up and she will be reviewing. Informed that pt is still in need of placement. 2. [facility] [place]- Sent an email to Monica Bolaños in admissions to follow up on referral that was faxed. 3. [facility]- Phone call to Alyse in admissions at [phone]. Left a voicemail inquiring about bed availability. 4. [facility] [place]- Phone call to admissions at [phone]. Left a voicemail inquiring about bed availability. 5. Phone call to [facility] in [place] at [phone]. Spoke with Montez in admissions. There is an opening. Emailed referral to [facility] at [email or web address]. 6. [facility] in [place]- Phone call to admissions at [phone]. There are no open beds this week. 7. [facility]- Phone call to Kasey in admissions at [phone]. Left a voicemail inquiring about bed availability. 8. [facility] [place]- Phone call to admissions at [phone]. Left a voicemail inquiring about bed availability. 9. [facility] [place]- Phone call to admissions at [phone]. Left a voicemail inquiring about bed availability. 10. [facility] [place]- Phone call to admissions at [phone]. Left a voicemail inquiring about bed availability. Social Work will continue to follow up as necessary.
--- NOTE | 2022-03-11 16:31 | P.IMPN_ITS ---
Progress Note: A&P Assessment and plan (1) Atrial flutter with rapid ventricular response: Problem details: - on admission, patient placed on a diltiazem GTT - transitioned well to oral metoprolol and digoxin (off of diltiazem gtt 03/04) - Eliquis for prophylaxis - discussed case with Dr. Medina of Cardiology on 03/06: Patient remains hemodynamically stable and rate controlled at this time, outpatient cardiology follow-up is appropriate to discuss cardioversion (no need for urgent transfer to tertiary care facility) - TTE obtained 03/03 Final Impressions: 1. Technically very limited exam. 2. Normal LV size, normal global systolic function with an estimated EF of 60 - 65%. 3. Enlarged RV w/ reduced function, incompletely visualized. 4. Moderately enlarged left atrium. 5. No hemodynamically significant valve disease detected. Status: Acute Assessment and Plan: Rate remains stable and controlled. (2) Fall: Problem details: - secondary to weakness and deconditioning Status: Acute Assessment and Plan: Continue PT and OT. Needs TCU upon discharge; no bed available. No safe discharge option at this time. (3) Incontinence associated dermatitis: Problem details: - continue williamson - continue wound care as per surgery/Wound consult recommendations Status: Acute (4) Stage III pressure ulcer of buttock: Problem details: Continue wound care. Status: Acute (5) Pressure ulcer of buttock: Problem details: - General surgery following, I&D in OR 03/04. Dr. Dwayne Don initiated on admission, discontinued on 03/06 Status: Acute (6) Lymphedema associated with obesity: Status: Acute (7) Obesity: Status: Acute (8) Self neglect: Status: Acute (9) Weakness generalized: Problem details: - PT and OT following, fall risk. Requiring assistance with ADLs - TCU placement Status: Acute (10) Hematuria: Problem details: Possibly secondary to over distended bladder upon presentation combined with anticoagulation with Eliquis for atrial flutter. Renal ultrasound 03/04/2022 was unremarkable. Hemoglobin stable. UA repeated today shows elevated urine wbc's, UC - no bacteria, +some yeast. Will need outpatient urology consultation. Status: Acute (11) Vaginal bleeding: Problem details: Abnormal postmenopausal bleeding. I spoke with Dr. Barillas who recommended transvaginal US. This shows abnormally thickened endometrial stripe. I spoke wi th Dr. Wagner who attempted endometrial biopsy, but patient did not tolerate this bedside. Will await further recommendations from her - but this can also happen as outpatient. Continue seeking placement. Status: Acute Plan Afib rate controlled, on apixaban. When I spoke with Dr. Wagner, she thought we did not need to hold that for the endometrial biopsy. Emily is scheduled for endometrial biopsy in the OR tomorrow morning. I spoke with 1 of the CRNAs today who noted that she would get ketamine and propofol for conscious sedation which is what she had for the debridement on 03/04/2022. She will be NPO after midnight. Urine outputs have picked up and I have discontinued the IV fluids. Subjective Time Seen by Provider: 09:05 Date Seen: 03/11/22 Interval history: Emily said she must have had nightmares because she woke up calling out. She noted how yesterday's events of attempted endometrial biopsy, anticipating the biopsy in the OR tomorrow as well as the unknown of what the results will be are heavily on her mind. Exam Narrative: Exam Narrative: General:? No acute distress.? Awake, alert, oriented x3.? No pallor.? No jaundice. Oropharynx:? Clear.? Mucous membranes moist. Cardiovascular:? Irregularly irregular.? No murmurs, gallops, or rubs. Respiratory:? Clear to auscultation bilaterally.? No wheezes or crackles. Const: Vital Signs, click to edit/add: Vital Signs - 24 hr 03/10/22 19:00 03/10/22 23:00 03/10/22 23:00 Temperature 98 F Pulse Rate Pulse Rate [Pulse Oximeter] 88 100 Respiratory Rate 24 22 Blood Pressure [Le ft Arm] 150/89 H Pulse Oximetry 94 100 Oxygen Delivery Me thod Room Air Room Air 03/10/22 23:00 03/10/22 23:14 03/11/22 03:00 Temperature 98.2 F 98.2 F Pulse Rate 67 Pulse Rate [Pulse Oximeter] 68 68 Respiratory Rate 22 26 H Blood Pressure [Le ft Arm] 119/77 138/77 Pulse Oximetry 100 93 Oxygen Delivery Me thod Room Air Room Air 03/11/22 07:40 03/11/22 07:40 03/11/22 07:00 Temperature 97.4 F L Pulse Rate 68 Pulse Rate [Pulse Oximeter] 69 Respiratory Rate 20 Blood Pressure [Le ft Arm] 157/93 H Pulse Oximetry 93 93 Oxygen Delivery Me thod Room Air Room Air 03/11/22 13:00 03/11/22 15:50 03/11/22 15:50 Temperature 97.8 F 98.7 F Pulse Rate Pulse Rate [Pulse Oximeter] 68 67 Respiratory Rate 20 20 18 Blood Pressure [Le ft Arm] 129/98 H 135/104 H Pulse Oximetry 94 94 91 Oxygen Delivery Me thod Room Air Room Air Room Air 03/11/22 15:55 03/11/22 16:15 Temperature Pulse Rate 68 Pulse Rate [Pulse Oximeter] 67 Respiratory Rate 18 Blood Pressure [Le ft Arm] Pulse Oximetry Oxygen Delivery Me thod Documenting provider has reviewed patient's vital signs: yes
--- NOTE | 2022-03-11 18:43 | PC.NURSE ---
end of shift. ? Pt is Very pleasant and cooperative.? HR has been 70's-80? A-Flutter. ?Tele was d/c ?She has been T&R? q3hrs.?? she had 1 BM this and Imodium was given.? ? ? Drsg on buttocks changed x1. ? Ghosh draining yellow? urine.? she is putting out 150 or more every 4 hours.? LR infusing was stopped. ? SL is patent. ? she is a ceiling lift.?she has been up in the chair. she is eating and drinking.? 0.5 IVP Dilaudid with dressing change.?
[2022-03-11] MEDS: SODIUM CHLORIDE 0.9 % (FLUSH) 10 ML SYRINGE 5 ML IVF (20:47)
[2022-03-12] VITALS (13 sets, daily range): BP systolic 93–163; BP diastolic 47–97; PULSE 64–69; RESP 18–24; TEMP 36.3–37.7; O2SAT 90–100
[2022-03-12] MEDS: 0.9 % SODIUM CHLORIDE 500 ML 250 ML IV (02:48)
[2022-03-12] MEDS: SODIUM CHLORIDE 0.9 % (FLUSH) 10 ML SYRINGE 5 ML IVF ×2 (02:49→23:18)
--- NOTE | 2022-03-12 04:18 | PC.NURSE ---
Shift note: Pt continue to require A1 for ADL and A3 for transfer, turning and reposition. Refused Q2H T/R and requested to call when she needs it. Pt only requested for ix T/R. No BM this shift. No pain, n/v reported. NPO maintained for possible surgical procedure today.
[2022-03-12] MEDS: 5 % DEXTROSE IN LAC RINGER'S 1,000 ML 75 ML IV ×2 (07:58→16:39)
--- NOTE | 2022-03-12 09:47 | NUTR.NU ---
RDN with LOS note day 13. Patient's meal intakes have ranged from 50-100% recently, sometimes she will skip a meal to have snack or shake. Patient is currently NPO today in anticipation for possible surgery/debridement. Had debridement of stage 3 pressure ulcer on 03/04/22. RDN ordered Silviano BID and offer high protein snacks BID on 03/03/22 - mainly consuming 100% of these. Current weight is 388 lbs, BMI 66.6 kg/m2. Weight has slowly trended up since admit, possibly due to fluid. Patient will most likely need placement for long-term care upon discharge. No additional nutrition interventions at this time. RDN will continue to monitor and follow-up prn.
[2022-03-12] MEDS: DIGOXIN 250 MCG TABLET PO (10:51)
[2022-03-12] MEDS: METOPROLOL TARTRATE 100 MG TABLET PO ×2 (10:51→23:17)
--- NOTE | 2022-03-12 12:53 | PM.IMPN1 ---
Progress Note: A&P Assessment and plan (1) Atrial flutter with rapid ventricular response: Problem details: -continues to be rate controlled, no acute cardiovascular issues currently - on admission, patient placed on a diltiazem GTT - transitioned well to oral metoprolol and digoxin (off of diltiazem gtt 03/04) - Eliquis for prophylaxis - discussed case with Dr. Medina of Cardiology on 03/06: Patient remains hemodynamically stable and rate controlled at this time, outpatient cardiology follow-up is appropriate to discuss cardioversion (no need for urgent transfer to tertiary care facility) - TTE obtained 03/03 Final Impressions: 1. Technically very limited exam. 2. Normal LV size, normal global systolic function with an estimated EF of 60 - 65%. 3. Enlarged RV w/ reduced function, incompletely visualized. 4. Moderately enlarged left atrium. 5. No hemodynamically significant valve disease detected. Status: Acute (2) Fall: Problem details: - secondary to weakness and deconditioning Status: Acute (3) Incontinence associated dermatitis: Problem details: - continue williamson - continue wound care as per surgery/Wound consult recommendations Status: Acute (4) Stage III pressure ulcer of buttock: Problem details: stage III right buttock pressure ulcer. She also has a stage II left buttock pressure ulcer. Status: Acute (5) Pressure ulcer of buttock: Problem details: - General surgery following, I&D in OR 03/04. Dr. Dwayne Don initiated on admission, discontinued on 03/06 Status: Acute (6) Lymphedema associated with obesity: Status: Acute (7) Obesity: Status: Acute (8) Self neglect: Status: Acute (9) Weakness generalized: Problem details: - PT and OT following, fall risk. Requiring assistance with ADLs - TCU placement Status: Acute (10) Hematuria: Problem details: Possibly secondary to over distended bladder upon presentation combined with anticoagulation with Eliquis for atrial flutter. Renal ultrasound 03/04/2022 was unremarkable. Hemoglobin stable. UA repeated today shows elevated urine wbc's, UC - no bacteria, +some yeast. Will need outpatient urology consultation. Status: Acute (11) Vaginal bleeding: Problem details: EUA, EMB and Pap smear today Status: Acute Subjective Date Seen: 03/12/22 Interval history: Daily Progress Note - Hospital Medicine Day #: 11 CC: A FLUTTER WITH RVR (RESOLVED), SEVERE WEAKNESS/BEDBOUND, DECUBITUS ULCERS, POSTMENOPAUSAL BLEEDING OVERNIGHT UPDATES FROM STAFF & MED, LAB, IMAGING UPDATES -NPO this morning, on D5 LR -plan is for endometrial biopsy, Pap smear, wound care under anesthesia this morning -patient appears comfortable and is telling me she thinks she is getting slowly better -therapies are reporting very little progress however, somewhat mood dependent 158/97, 148/78. Afebrile. Pulse 60s, respiratory rate 20, 93% on room air CBC is unremarkable. Chemistries have not been done since March 10. Unremarkable at that time. C diff negative on 03/07 All urine and blood cultures have been negative Echocardiogram, trans thoracic, 03/03/2022. Moderately enlarged left atrium otherwise essentially normal. For her a flutter she remains on digoxin and metoprolol. She is anticoagulated with Eliquis. She is getting lactobacillus She has several p.r.n. meds Objective: Comfortable Vitals: Reviewed, afebrile see above Lungs: Clear. Cardiac: S1S2. -I did not assess her sacral decubitus ulcers Disposition/Potential discharge - Likely to return to previous living situation. Total time is 35 minutes with greater than 50% spent in counseling and coordination of care. Exam Const: Vital Signs, click to edit/add: Vital Signs - 24 hr 03/11/22 13:00 03/11/22 15:50 03/11/22 15:50 Temperature 97.8 F 98.7 F Pulse Rate Pulse Rate [Pulse Oximeter] 68 67 Respiratory Rate 20 20 18 Blood Pressure [Le ft Arm] 129/98 H 135/104 H Pulse Oximetry 94 94 91 Oxygen Delivery Me thod Room Air Room Air Room Air 03/11/22 15:55 03/11/22 16:15 03/11/22 19:00 Temperature 98 F Pulse Rate 68 Pulse Rate [Pulse Oximeter] 67 80 Respiratory Rate 18 18 Blood Pressure [Le ft Arm] 152/111 H Pulse Oximetry 90 Oxygen Delivery Al thod Room Air 03/11/22 23:00 03/11/22 23:00 03/11/22 23:00 Temperature 98 F Pulse Rate Pulse Rate [Pulse Oximeter] 84 84 Respiratory Rate 18 18 Blood Pressure [Le ft Arm] 144/87 H Pulse Oximetry 92 92 Oxygen Delivery Me thod Room Air Room Air 03/12/22 03:00 03/12/22 10:51 03/12/22 07:00 Temperature 97.6 F Pulse Rate 69 Pulse Rate [Pulse Oximeter] 67 67 Respiratory Rate 18 Blood Pressure [Le ft Arm] 148/78 H Pulse Oximetry 94 [facility] 03/12/22 07:00 03/12/22 07:00 03/12/22 11:00 Temperature 97.5 F L 97.4 F L Pulse Rate Pulse Rate [Pulse Oximeter] 67 69 Respiratory Rate 20 20 20 Blood Pressure [Le ft Arm] 158/97 H Pulse Oximetry 92 92 93 Oxygen Delivery [facility] Room Air Room Air Room Air
--- NOTE | 2022-03-12 16:03 | W.ANESCHARGE ---
Anesthesia Charges Start Date/Time Anesthesia Start Date: 03/04/22 Anesthesia Start Time: 11:37 Stop Date/Time Anesthesia Stop Date: 03/04/22 Anesthesia Stop Time: 12:10 Summary Emergency: No
--- NOTE | 2022-03-12 16:16 | W.ANESCHARGE ---
Anesthesia Charges Start Date/Time Anesthesia Start Date: 03/04/22 Anesthesia Start Time: 11:37 Stop Date/Time Anesthesia Stop Date: 03/04/22 Anesthesia Stop Time: 12:10 Summary Emergency: No Extremes of Age: Over 70-CPT [id number]
--- NOTE | 2022-03-12 16:26 | SUR.PHASEI ---
patient met discharge criteria per anesthesia
[2022-03-12] MEDS: HYDROmorphone 0.5 mg/0.5 ml inj IVP (16:39)
--- NOTE | 2022-03-12 16:44 | PC.SOCIAL ---
Discharge planning- Contacted the following SNF's for possible placement. 1. [facility]- Received a phone call from Monica in admissions. Monica is assessing referral. Monica has concerns that pt is 3-4 staff to assist with transfers, changing, and repositioning. Discussed with therapy and nursing. Provided nursing and therapy notes to [facility]. [facility]ked [facility] to complete a nurse to nurse to obtain clarification. 2. [facility] [place]- Admissions is assessing pt for possible admission. 3. [facility]- Received a phone call from Alyse in admissions. Alyse informed that they are declining pt for admission due to not being able to meet pt's level of care. Facility is unable to provide equipment to support pt's weight. 4. [facility]- Phone call to admissions at [phone]. [facility] has an opening and will assess pt. Faxed referral to [phone]. 5. [facility]- Received a phone call from Latoya in admissions. [facility] declined pt for admissions due to not being able to meet pt's level of care. 6. [facility]- Recieved a phone call from Kasey in admissions. There are open beds and Kasey will asess pt for possible admission. Faxed referral to [phone]. 7. [facility]- Received a phone call from Tessie in admissions. Tessie is declining pt due to not being able to meet pt's needs. Social Work will continue to follow up as necessary.
--- NOTE | 2022-03-12 16:53 | P.GYNPRC_ITS ---
Procedure Note Time Seen by Provider: 13:00 Date Seen: 03/12/22 Procedure Details: Preoperative diagnosis: 71 year-old with fibroid uterus and postmenopausal bleeding. Postoperative diagnosis: Same Procedure: Exam under anesthesia and endometrial sampling Anesthesia: Monitored anesthesia care Surgeon: Kiara Wagner MD [employer] surgeon: Maddy Barillas MD Estimated blood loss: <5 mL Specimen: Endometrial sampling and pap smear with HPV to pathology. Findings: Exam under anesthesia: Small cervix palpates very high and anteflexed. Uterus: palpated at umbilicus and anterior position with multiple nodularity/masses palpable. Unable to assess adnexa bilaterally due to body habitus. Procedure: Emily was taken to the operating where conscious sedation was found to be adequate. Unable to bend her legs the knee, thus, legs were positioned straight on the yellow fins. An exam under anesthesia was performed with findings stated above. She was then prepped and draped in normal sterile manner. Multiple instruments/retractors trialed to obtained direct visualization the cervix. The best visualization fever could obtain under direct visualization was the posterior cervical lip. Unable to get full cervix in view due to habitus. Ring forceps was placed on posterior cervical lip. This was used to guide a blind endometrial sampling with the endometrial Pipelle. Both Dr. Barillas and Skyler did two passes each with the endometrial Pipelle to obtained adequate endometrial sampling. Blind pap smear done by Dr. Barillas guided by bimanual exam. Unable to pass the smallest endometrial curette through the cervical os. We assessed the specimen cup and determined that there should be adequate endometrial sample for pathologic analysis. No more attempt with the curette was attempted. Procedure terminated at this time. Ring forceps was removed from the uterus and cervix. Excellent hemostasis noted. Nothing was used for hemostasis. The patient tolerated the procedure well. Sponge, lap and instruments counts were correct at the end of the procedure. The patient was awakened from anesthesia and taken to the recovery area in stable condition.
--- NOTE | 2022-03-12 19:02 | PC.NURSE ---
Pt sad at 0730 a.m. assessment. Stating I have been awake for 5 hours and no one has spoken to me. Discussed plan for the day and helped reposition patient, pt was thankful and smiled. Davina patent, no BM on shift. Mepilex for buttocked changed and repositioned during a.m. meds. NPO for procedure. Pt arrived from procedure @1620 rating uterine pain 10/08. See MAR for medication administration with relief. Pt needed 1L [id number] cannula to maintain sats above 90% post procedure and pain medication administration.
[2022-03-12] MEDS: APIXABAN 5 MG TABLET PO (23:16)
[2022-03-12] MEDS: NYSTATIN POWDER 1 APPLIC TOPICAL (23:19)
[2022-03-13] VITALS (7 sets, daily range): BP systolic 110–150; BP diastolic 64–102; PULSE 62–83; RESP 18–28; TEMP 36.3–36.6; O2SAT 92–96; BMI 64.0
--- NOTE | 2022-03-13 06:45 | PC.NURSE ---
VSS on 1L of O2 via NC. Patient is alert and oriented x3, call light appropriate. Denies pain after receiving pain medication on previous shift. Pt requires assist of two-three with bed mobility, turn and reposition. Incontinent of bowel and bladder, dressing change completed per order. Pt removed Iv, was reinserted. IV fluid running, turned and repo per order. Call light within reach.
[2022-03-13 07:04] LABS: Hemoglobin* 12.1 gm/dL (12.0-16.0)
[2022-03-13 07:21] LABS: Chloride* 106 mmol/L (96-114); Sodium* 140 mmol/L (135-149)
[2022-03-13 07:22] LABS: Potassium* 4.4 mmol/L (3.6-5.1)
[2022-03-13 07:24] LABS: Creatinine* 0.8 mg/dL (0.5-1.5); Est. Creatinine Clearance* 43.91; Estimated Glomerular Filt Rate 78 ml/min
--- NOTE | 2022-03-13 07:24 | P.IMPN_ITS ---
Progress Note: A&P Assessment and plan (1) Atrial flutter with rapid ventricular response: Problem details: -continues to be rate controlled, no acute cardiovascular issues currently - on admission, patient placed on a diltiazem GTT - transitioned well to oral metoprolol and digoxin (off of diltiazem gtt 03/04) - Eliquis for prophylaxis - discussed case with Dr. Medina of Cardiology on 03/06: Patient remains hemodynamically stable and rate controlled at this time, outpatient cardiology follow-up is appropriate to discuss cardioversion (no need for urgent transfer to tertiary care facility) - TTE obtained 03/03 Final Impressions: 1. Technically very limited exam. 2. Normal LV size, normal global systolic function with an estimated EF of 60 - 65%. 3. Enlarged RV w/ reduced function, incompletely visualized. 4. Moderately enlarged left atrium. 5. No hemodynamically significant valve disease detected. Status: Acute (2) Fall: Problem details: - secondary to weakness and deconditioning - on the ground for 3 days prior to admission Status: Acute (3) Incontinence associated dermatitis: Problem details: - continue williamson and prn imodium for loose stools (cdiff negative) - continue wound care as per surgery/Wound consult recommendations Status: Acute (4) Stage III pressure ulcer of buttock: Problem details: stage III right buttock pressure ulcer. She also has a stage II left buttock pressure ulcer. Status: Acute (5) Pressure ulcer of buttock: Problem details: - General surgery following, I&D in OR 03/04. Dr. Rice - Arian initiated on admission, discontinued on 03/06 Status: Acute (6) Lymphedema associated with obesity: Status: Acute (7) Obesity: Status: Acute (8) Self neglect: Status: Acute (9) Weakness generalized: Problem details: - PT and OT following, fall risk. Requiring assistance with ADLs - TCU placement Status: Acute (10) Hematuria: Problem details: Possibly secondary to over distended bladder upon presentation combined with anticoagulation with Eliquis for atrial flutter. Renal ultrasound 03/04/2022 was unremarkable. Hemoglobin stable. UA repeated today shows elevated urine wbc's, UC - no bacteria, +some yeast. Will need outpatient urology consultation. Status: Acute (11) Vaginal bleeding: Problem details: EUA, EMB and Pap smear 03/12/2022. Thankful for the support of our OBGYN partners. Pap pending. Status: Acute Subjective Date Seen: 03/13/22 Interval history: Daily Progress Note - Hospital Medicine #: 12 CC: A FLUTTER WITH RVR (RESOLVED), SEVERE WEAKNESS/BEDBOUND, DECUBITUS ULCERS, POSTMENOPAUSAL BLEEDING Procedure 03/12/22 Specimen:? Endometrial sampling and pap smear with HPV to pathology. Findings:? Exam under anesthesia: Small cervix palpates very high and anteflexe d. Uterus: palpated at umbilicus and anterior position with multiple nodularity/masses palpable. Unable to assess adnexa bilaterally due to body habitus. OVERNIGHT UPDATES FROM STAFF & MED, LAB, IMAGING UPDATES -multi disciplinary team meeting to discuss options for the care of a bariatric patientWho is nonambulatory -patient was able to later in the day stand with both parallel bars supporting -I discussed at length with Emily the need to find mental strength and grit to move forward with rehab C diff negative on 03/07 All urine and blood cultures have been negative Echocardiogram, trans thoracic, 03/03/2022. Moderately enlarged left atrium otherwise essentially normal. For her a flutter she remains on digoxin and metoprolol. She is anticoagulated with Eliquis. She is getting lactobacillus She has several p.r.n. meds Objective: Comfortable Vitals: Reviewed, afebrile see above Lungs: Clear. Cardiac: S1S2. -I did not assess her sacral decubitus ulcers Disposition/Potential discharge - Likely to return to previous living situation. Total time is 35 minutes with greater than 50% spent in counseling and coordination of care. Exam Const: Vital Signs, click to edit/add: Vital Signs - 24 hr 03/12/22 10:51 03/12/22 11:00 03/12/22 15:57 Temperature 97.4 F L 98.5 F Pulse Rate 69 65 Pulse Rate [Pulse Oximeter] 69 Respiratory Rate 20 24 Blood Pressure 94/47 L Blood Pressure [Le ft Arm] 158/97 H Pulse Oximetry 93 100 Oxygen Delivery Me thod Room Air OxyMask Oxygen Flow Rate 10 03/12/22 16:00 03/12/22 16:15 03/12/22 16:20 Temperature 98.5 F 99.8 F H Pulse Rate 65 65 Pulse Rate [Pulse Oximeter] 69 Respiratory Rate 20 24 24 Blood Pressure 93/56 L 106/74 Blood Pressure [Le ft Arm] 145/93 H Pulse Oximetry 96 94 93 Oxygen Delivery Me thod Room Air Room Air Room Air Oxygen Flow Rate 10 03/12/22 16:41 03/12/22 17:02 03/12/22 17:33 Temperature 97.7 F Pulse Rate Pulse Rate [Pulse Oximeter] 67 64 Respiratory Rate 22 22 18 Blood Pressure Blood Pressure [Le ft Arm] 163/87 H 150/88 H Pulse Oximetry 92 90 91 Oxygen Delivery Me thod Room Air Room Air Nasal Cannula Oxygen Flow Rate 1 03/12/22 19:00 03/12/22 23:00 03/12/22 23:00 Temperature 97.4 F L Pulse Rate Pulse Rate [Pulse Oximeter] 65 65 Respiratory Rate 18 18 Blood Pressure Blood Pressure [Le ft Arm] 133/80 Pulse Oximetry 100 Oxygen Delivery Me thod Nasal Cannula Room Air Oxygen Flow Rate 1 03/12/22 23:00 03/13/22 03:00 Temperature 97.4 F L 97.7 F Pulse Rate Pulse Rate [Pulse Oximeter] 65 83 Respiratory Rate 18 18 Blood Pressure Blood Pressure [Le ft Arm] 133/80 137/97 H Pulse Oximetry 100 92 Oxygen Delivery Me thod Room Air Room Air Oxygen Flow Rate 1 Labs Labs: Laboratory Results - last 24 hr 03/13/22 06:44 Hgb 12.1
[2022-03-13 07:25] LABS: Blood Urea Nitrogen* 6 mg/dL (7-30); Calcium* 8.6 mg/dL (8.4-10.6); Carbon Dioxide* 35 mmol/L (20-32); Glucose* 87 mg/dL (60-115)
[2022-03-13 07:41] LABS: Iron* 54 ug/dL (37-170)
[2022-03-13 07:51] LABS: Percent Iron Saturation 22 % (20-50); Total Iron Binding Capacity 246 ug/dL (265-497)
[2022-03-13 08:01] LABS: Ferritin* 57.2 ng/mL (11.1-264.0)
[2022-03-13] MEDS: LACTOBACILLUS ACIDOPHILUS 1 TABLET 1 TAB PO ×3 (08:01→18:59)
[2022-03-13] MEDS: METOPROLOL TARTRATE 100 MG TABLET PO ×2 (09:11→20:45)
[2022-03-13] MEDS: APIXABAN 5 MG TABLET PO ×2 (09:11→20:45)
[2022-03-13] MEDS: DIGOXIN 250 MCG TABLET PO (09:12)
[2022-03-13] MEDS: 5 % DEXTROSE IN LAC RINGER'S 1,000 ML 75 ML IV (09:50)
[2022-03-13] MEDS: SERTRALINE 50 MG TABLET 25 MG PO (13:14)
--- NOTE | 2022-03-13 15:16 | PC.SOCIAL ---
Addendum entered by ERNIE Cavanaugh 03/13/22 17:07: Received call from [facility] of [facility] stating they are declining admission. Original Note: Discharge planning- Contacted the follow SNF's for possible placement. Contacted the [facility] line at [phone] to obtain listings that can meet pt criteria for placement. Obtained a listing of SNF's in [place]. 1. [facility] [place]- Phone call to admissions at [phone]. Spoke to Isidro and there are openings. Faxed referral to [phone]. 2. [facility]- Phone call to Valeria in admissions at [phone]. There are no openings until next week Wednesday. Faxed referral to [phone]. 3. [facility] [place]- Phone call to admissions at [phone]. Admissions is out until Wednesday. There are potentially openings. Faxed referral to [phone]. 4. [facility]- Phone call to admissions at [phone]. Left a voicemail inquiring on bed availability. Faxed referral to [phone]. 5. [facility]- Phone call to admissions and spoke to Jones. There will be an opening next Wednesday. Faxed referral to [phone]. 6. [facility]- Phone call to fountain admissions at [phone]. Left a voicemail and faxed referral to [phone]. 7. [facility]- Phone call to admissions at [phone]. Left a voicemail inquiring about bed availability. 8. [facility] [place]- Phone call to admissions at [phone]. Left a voicemail inquiring about bed availability. 9. [facility] [place]- Phone call to admissions at [phone] x3. There is no answer and the voicemail box is full. 10. [facility]- Phone call to admissions. There are openings. faxed referral to [phone]. 11. [facility] [place]- Phone call to admissions at [phone]. Left a voicemail inquiring about bed availability. Faxed referral to [phone]. 12. [facility]- Phone call to Bridget in admissions at [phone]. Left a voicemail inquiring about bed availability. 13. [facility] [place]- Phone call to admissions at [phone]. There are openings. Faxed referral to [phone]. 14. [facility]- Phone call to Shelby in admissions. There are no openings and due to low staffing they could not meet pt's needs for an upcoming openings. 15. [facility]- Phone call to Ashley in admissions at [phone]. There are no beds available and the SNF Cannot accommodate pt's weight with their DME Equipment. 16. [facility]- phone call to Cedric in admissions at [phone]. There are no beds available and the SNF Cannot accommodate pt's weight with their DME Equipment. 17. [facility]- Phone call to Berkley in admissions at [phone]. There are no beds available and the SNF Cannot accommodate pt's weight with their DME Equipment. 18. [facility]- Phone call to Fransisco in admissions at [phone]. There are no beds available and the SNF Cannot accommodate pt's weight with their DME Equipment. Social work will continue to follow up as necessary.
[2022-03-13] MEDS: LOPERAMIDE HCL 2 MG CAPSULE PO (18:59)
--- NOTE | 2022-03-13 19:40 | PC.NURSE ---
Nursing Care Hours: [id number] Pt this shift calm and cooperative, A&O, and pleasant. c/o pain 6/10 generalized but declined pain medications. Turned and repo Q2-3H. BM x3 this shift, starting off soft and formed and transitioned into loose. Imodium given PRN per pt request. Bandages to bilat glutes changed x2, second time left open to air d/t coming up to change of shift. Per pt report, bilat LE dressing change happened 03/12 so did not do it today. Bandages CDI, CMS intact. U/o in catheter dark felipe and becoming cloudy. Manager Field Sales encouraged pt to drink more water. U/o enough to not need the PRN IV bolus. pt worked with PT today doing sit to stand x2 with bilat bars. Pt tolerated well, c/o L knee pain, dizziness, and SOB. Attempted a third try but was not successful. Zoloft started today. Oral cares done after dinner.
[2022-03-13] MEDS: NYSTATIN POWDER 1 APPLIC TOPICAL (20:45)
[2022-03-13] MEDS: MELATONIN 3 MG TABLET PO (23:17)
[2022-03-14] VITALS (7 sets, daily range): BP systolic 125–146; BP diastolic 67–113; PULSE 59–78; RESP 18–24; TEMP 36.3–36.6; O2SAT 92–95
[2022-03-14] MEDS: 5 % DEXTROSE IN LAC RINGER'S 1,000 ML 75 ML IV (00:12)
[2022-03-14] MEDS: 0.9 % SODIUM CHLORIDE 500 ML 250 ML IV (03:11)
--- NOTE | 2022-03-14 05:34 | PC.NURSE ---
Pt alert and oriented x3, pleasant and cooperative. Pt reports 5/10 pain in lower back and buttocks, pain managed with turn and repo, offered PRN offered pain medications Pt refused. IV saline bolus was given related to decreased urinary output. Pt denies chest pain, SOB, and N/V. Pt dressings to left and right buttocks was changed with BM and is CDI. Pt up with ceiling lift. Tolerating regular diet. ???
[2022-03-14 06:50] LABS: HCO3 VBG 35 mmol/L (21-28); PO2 VBG 40.2 mmHG (25-47); pH VBG 7.288 (7.32-7.43)
[2022-03-14 06:51] LABS: PCO2 VBG 74 mmHG (40-50)
[2022-03-14 06:59] LABS: Hematocrit 39.1 % (33.0-51.0); Hemoglobin* 11.6 gm/dL (12.0-16.0); Mean Corpuscular HGB Conc 30 gm/dL (32-36); Mean Corpuscular Hemoglobin 27 pg (26-34); Mean Corpuscular Volume 90 fL (80-100); Platelet Count* 182 K/uL (140-440); Red Blood Count 4.36 m/uL (4.00-5.20); White Blood Count* 4.55 K/uL (4.50-11.00)
[2022-03-14 07:14] LABS: Slide Review Reflex No
[2022-03-14 07:15] LABS: Albumin* 2.6 g/dL (3.3-5.0); Chloride* 107 mmol/L (96-114)
[2022-03-14 07:16] LABS: Potassium* 4.2 mmol/L (3.6-5.1); Sodium* 141 mmol/L (135-149)
[2022-03-14 07:18] LABS: Creatinine* 0.8 mg/dL (0.5-1.5); Est. Creatinine Clearance* 43.91; Estimated Glomerular Filt Rate 78 ml/min
[2022-03-14 07:19] LABS: Alanine Aminotransferase* 26 U/L (4-35); Alkaline Phosphatase* 50 U/L (40-150); Aspartate Amino Transferase* 21 U/L (12-35); Bilirubin Total* 0.5 mg/dL (0.1-1.5); Blood Urea Nitrogen* 8 mg/dL (7-30); Calcium* 8.5 mg/dL (8.4-10.6); Carbon Dioxide* 36 mmol/L (20-32); Glucose* 107 mg/dL (60-115); Total Protein* 6.1 g/dL (6.0-8.3)
[2022-03-14 07:21] LABS: C Reactive Protein* 2.1 mg/dL (0.5-1.0)
[2022-03-14 08:14] LABS: ABG PCO2 59 mmHG (35-45); Base Excess ABG 6.4 mmol/L (-3.0-3.0); Carboxyhemoglobin* 1.5 % (0.0-5.0); HCO3 ABG 34 mmol/L (21-28); Oxygen Saturation ABG 90 % (92-100); PO2 ABG 57.3 mmHG (80-105); TCO2 ABG 31 mmol/l (21-30); pH ABG 7.36 (7.35-7.45)
[2022-03-14] MEDS: APIXABAN 5 MG TABLET PO ×2 (09:22→22:36)
[2022-03-14] MEDS: DIGOXIN 250 MCG TABLET PO (09:22)
[2022-03-14] MEDS: LACTOBACILLUS ACIDOPHILUS 1 TABLET 1 TAB PO ×3 (09:22→18:27)
[2022-03-14] MEDS: METOPROLOL TARTRATE 100 MG TABLET PO ×2 (09:23→22:36)
[2022-03-14] MEDS: SERTRALINE 50 MG TABLET 25 MG PO (09:23)
--- NOTE | 2022-03-14 13:09 | P.IMPN_ITS ---
Progress Note: A&P Assessment and plan (1) Atrial flutter with rapid ventricular response: Problem details: -continues to be rate controlled, no acute cardiovascular issues currently - on admission, patient placed on a diltiazem GTT - transitioned well to oral metoprolol and digoxin (off of diltiazem gtt 03/04) - Eliquis for prophylaxis - discussed case with Dr. Medina of Cardiology on 03/06: Patient remains hemodynamically stable and rate controlled at this time, outpatient cardiology follow-up is appropriate to discuss cardioversion (no need for urgent transfer to tertiary care facility) - TTE obtained 03/03 Final Impressions: 1. Technically very limited exam. 2. Normal LV size, normal global systolic function with an estimated EF of 60 - 65%. 3. Enlarged RV w/ reduced function, incompletely visualized. 4. Moderately enlarged left atrium. 5. No hemodynamically significant valve disease detected. Status: Acute (2) Fall: Problem details: - secondary to weakness and deconditioning - on the ground for 3 days prior to admission Status: Acute (3) Incontinence associated dermatitis: Problem details: - continue williamson and prn loperamide for loose stools (c. diff negative) - continue wound care as per surgery/Wound consult recommendations Status: Acute (4) Stage III pressure ulcer of buttock: Problem details: stage III right buttock pressure ulcer. She also has a stage II left buttock pressure ulcer. Status: Acute (5) Pressure ulcer of buttock: Problem details: - General surgery following, I&D in OR 03/04. Dr. Rice - Arian initiated on admission, discontinued on 03/06 Status: Acute (6) Lymphedema associated with obesity: Status: Acute (7) Obesity: Status: Acute (8) Self neglect: Status: Acute (9) Weakness generalized: Problem details: - PT and OT following, fall risk. Requiring assistance with ADLs - TCU placement still pending Status: Acute (10) Hematuria: Problem details: Possibly secondary to over distended bladder upon presentation combined with anticoagulation with Eliquis for atrial flutter. Renal ultrasound 03/04/2022 was unremarkable. Hemoglobin stable. UA repeated shows elevated urine wbc's, UC - no bacteria, +some yeast. Will need outpatient urology consultation. Status: Acute (11) Vaginal bleeding: Problem details: EUA, EMB and Pap smear 03/12/2022. Thankful for the support of our OBGYN partners. Pap pending. Status: Acute (12) Acute respiratory failure with hypercapnia: Problem details: Nocturnal, suggestive of obstructive sleep apnea Status: Acute Plan 1. Reviewed with patient. 2. Answered patient's questions to her satisfaction. 3. Will attempt CPAP tonight and blood gas to see how she is responding to this with regard to her acute respiratory failure with hypercapnia. If she is doing well with this then will continue the same. If she is not then may need a try BiPAP. Will monitor arterial blood gas tonight as well on the CPAP. 4. Continue to work with physical and occupational therapy. 5. Strive for discharge when physically able and when we have appropriate facility lined up. 6. Continue with other supportive efforts. 7. Patient agreeable to above stated plans and recommendations. Time Spent With Patient Total time spent: 40 minutes Subjective Time Seen by Provider: 07:30 Date Seen: 03/14/22 Interval history: Daily Progress Note - Hospital Medicine Day #: 13 CC: A FLUTTER WITH RVR (RESOLVED), SEVERE WEAKNESS/BEDBOUND, DECUBITUS ULCERS, POSTMENOPAUSAL BLEEDING Procedure 03/12/22 Specimen:? Endometrial sampling and pap smear with HPV to pathology. Findings:? Exam under anesthesia: Small cervix palpates very high and anteflexed. Uterus: palpated at umbilicus and anterior position with multiple nodularity/masses palpable. Unable to assess adnexa bilaterally due to body habitus. OVERNIGHT UPDATES FROM STAFF & MED, LAB, IMAGING UPDATES -Still considering options for the care of a bariatric patient who is nonambulatory -patient was able to stand briefly yesterday with both parallel bars supporting -she voices understanding that she needs to work so as to even qualify for possible rehab C diff negative on 03/07 All urine and blood cultures have been negative Echocardiogram, transthoracic, 03/03/2022: LV EF 60-65%. Decreased RV function. Moderately enlarged left atrium. Otherwise, essentially normal. For her a flutter she remains on digoxin and metoprolol. She is anticoagulated with Eliquis. She is getting lactobacillus She has several p.r.n. meds Wound care orders in place. Indicates she is sleepy and that her appetite is slowly coming back. Denies pain, nausea, vomiting. Denies dyspnea. No sycope, even with exertion yesterday. Denies lightheadedness. Exam Narrative: Exam Narrative: Appears comfortable and in no acute distress. Laying in bed. Alert, oriented to self, place, time, situation. Cooperative, friendly, talkative. Her mood and affect are congruent. Lungs are clear to auscultation. No wheezing, rhonchi, or rales. Heart tones with regular rhythm. Normal S1-S2. No murmur, gallop, or rub. No CVA tenderness. Abdomen with active bowel sounds, soft, nontender. Obese. Palpable pulses upper and lower extremities. I do not examine her skin in her buttock or posterior thigh area. Other skin intact. Const: Vital Signs, click to edit/add: Vital Signs - 24 hr 03/13/22 15:00 03/13/22 15:00 03/13/22 15:00 Temperature Pulse Rate Pulse Rate [Pulse Oximeter] 68 68 Respiratory Rate 28 H 28 H 25 H Blood Pressure [Le ft Arm] 147/64 H Pulse Oximetry 94 96 Oxygen Delivery Me thod Room Air Room Air Fraction of [facility] ed Oxygen 03/13/22 19:00 03/13/22 22:29 03/13/22 22:58 Temperature 97.3 F L 97.5 F L Pulse Rate Pulse Rate [Pulse Oximeter] 69 62 Respiratory Rate 20 18 18 Blood Pressure [Le ft Arm] 137/101 H 110/88 Pulse Oximetry 92 95 Oxygen Delivery Me thod Room Air Room Air Fraction of [facility] ed Oxygen 03/13/22 22:58 03/14/22 03:00 03/14/22 07:00 Temperature 97.8 F Pulse Rate Pulse Rate [Pulse Oximeter] 59 L 67 Respiratory Rate 18 18 24 Blood Pressure [Le ft Arm] 129/67 Pulse Oximetry 95 93 Oxygen Delivery Me thod Room Air Room Air Fraction of [facility] ed Oxygen 03/14/22 07:00 03/14/22 07:00 03/14/22 09:22 Temperature 97.4 F L Pulse Rate 67 Pulse Rate [Pulse Oximeter] 67 Respiratory Rate 24 24 Blood Pressure [Le ft Arm] 125/82 Pulse Oximetry 94 94 Oxygen Delivery Me thod Room Air Room Air Fraction of [facility] ed Oxygen 03/14/22 10:55 03/14/22 10:55 Temperature Pulse Rate Pulse Rate [Pulse Oximeter] Respiratory Rate Blood Pressure [Le ft Arm] Pulse Oximetry Oxygen Delivery Me thod Room Air Fraction of Inspir ed Oxygen 0.21 0.21 Documenting provider has reviewed patient's vital signs: yes Labs Labs: Laboratory Results - last 24 hr 03/14/22 03/14/22 03/14/22 06:35 06:35 06:35 WBC 4.55 RBC 4.36 Hgb 11.6 L Hct 39.1 MCV 90 MCH 27 MCHC 30 L Plt Count 182 ABG pH ABG pCO2 ABG pO2 ABG HCO3 ABG Total CO2 ABG O2 Saturation ABG Base Excess VBG pH VBG pCO2 VBG pO2 VBG HCO3 Carboxyhemoglobin Sodium 141 Potassium 4.2 Chloride 107 Carbon Dioxide 36 H BUN 8 Creatinine 0.8 Estimated Creat Clear 43.91 Estimated GFR 78 Glucose 107 Calcium 8.5 Total Bilirubin 0.5 AST 21 ALT 26 Alkaline Phosphatase 50 C-Reactive Protein 2.1 H Total Protein 6.1 Albumin 2.6 L Digoxin 1.0 03/14/22 03/14/22 06:35 08:05 WBC RBC Hgb Hct MCV MCH MCHC Plt Count ABG pH 7.36 ABG pCO2 59 H ABG pO2 57.3 L ABG HCO3 34 H ABG Total CO2 31 H ABG O2 Saturation 90 L ABG Base Excess 6.4 H VBG pH 7.288 L VBG pCO2 74 H* VBG pO2 40.2 VBG HCO3 35 H Carboxyhemoglobin 1.5 Sodium Potassium Chloride Carbon Dioxide BUN Creatinine Estimated Creat Clear Estimated GFR Glucose Calcium Total Bilirubin AST ALT Alkaline Phosphatase C-Reactive Protein Total Protein Albumin Digoxin
[2022-03-14] MEDS: LOPERAMIDE HCL 2 MG CAPSULE PO (18:27)
--- NOTE | 2022-03-14 19:56 | PC.NURSE ---
Nursing Care Hours: [phone] Pt this shift feeling tired and fatigued. CO2 labs elevated. Discussed with pt the side effects of not being able to release co2 build-up and using a CPAP at night may benefit. Pt agreeable. RT set up CPAP, pt trialed use during nap. Did not tolerate well, c/o feeling claustrophobic. Ativan ordered for HS, pt agreeable to try again. Pt R hand puffy compared to L, leaking clear fluids noticed from needle poke site from labs. IV stopped and SL. Hand elevated with warm compress. Within minutes swelling went down. Verbal order from Dr. Mujica to DC saline lock and leave IV out and to stop IV fluids received. Pt instructed on importance of taking in more oral fluids d/t low u/o. Pt agreed to drink the whole 800ml water by 1900 and pt successful. Pt has poor appetite today. Took ensure for breakfast, 50% of lunch and 25% of dinner. Unmotivated to get up into chair for meals. Bandages to bilat glutes changed, Iodosorb applied. Bilat LE compression wraps changed. Legs washed with soapy water and lotion. Vaginal bleeding still present, bright red, small amount.
[2022-03-14] MEDS: NYSTATIN POWDER 1 APPLIC TOPICAL (22:57)
[2022-03-15] MEDS: LORazepam 0.5 MG TABLET PO (01:07)
[2022-03-15 04:10] VITALS: BP 144/83; PULSE 66; RESP 20; TEMP 36.4; O2SAT 91
[2022-03-15 05:36] LABS: ABG PCO2 55 mmHG (35-45); Base Excess ABG 7.7 mmol/L (-3.0-3.0); Carboxyhemoglobin* 1.7 % (0.0-5.0); HCO3 ABG 34 mmol/L (21-28); Oxygen Saturation ABG 66 % (92-100); TCO2 ABG 31 mmol/l (21-30)
[2022-03-15 05:43] LABS: PO2 ABG 34.4 mmHG (80-105)
[2022-03-15 07:00] VITALS: BP 164/118; PULSE 66; PULSE 85; RESP 20; RESP 32; O2SAT 93
--- NOTE | 2022-03-15 07:23 | PC.NURSE ---
Pt alert and oriented x3, pleasant and cooperative. Pt?denies pain, and N/V. Pt reports intermittent SOB, SP02 95%, lung sounds were clear. Pt dressings to left and right buttocks were changed and are CDI. Pt up with ceiling lift. Tolerating regular diet. Nocturnal sleep study done. ?
[2022-03-15 09:49] VITALS: PULSE 85
[2022-03-15] MEDS: SERTRALINE 50 MG TABLET 25 MG PO (09:49)
[2022-03-15] MEDS: METOPROLOL TARTRATE 100 MG TABLET PO ×2 (09:49→21:34)
[2022-03-15] MEDS: LACTOBACILLUS ACIDOPHILUS 1 TABLET 1 TAB PO ×3 (09:49→18:21)
[2022-03-15] MEDS: APIXABAN 5 MG TABLET PO ×2 (09:49→21:33)
[2022-03-15] MEDS: DIGOXIN 250 MCG TABLET PO (09:49)
[2022-03-15 11:00] VITALS: BP 157/112; PULSE 66; RESP 36; TEMP 36.5; O2SAT 91
--- NOTE | 2022-03-15 14:42 | P.IMPN_ITS ---
Progress Note: A&P Assessment and plan (1) Atrial flutter with rapid ventricular response: Problem details: -continues to be rate controlled, no acute cardiovascular issues currently - on admission, patient placed on a diltiazem GTT - transitioned well to oral metoprolol and digoxin (off of diltiazem gtt 03/04) - Eliquis for prophylaxis - discussed case with Dr. Medina of Cardiology on 03/06: Patient remains hemodynamically stable and rate controlled at this time, outpatient cardiology follow-up is appropriate to discuss cardioversion (no need for urgent transfer to tertiary care facility) - TTE obtained 03/03 Final Impressions: 1. Technically very limited exam. 2. Normal LV size, normal global systolic function with an estimated EF of 60 - 65%. 3. Enlarged RV w/ reduced function, incompletely visualized. 4. Moderately enlarged left atrium. 5. No hemodynamically significant valve disease detected. Status: Acute (2) Fall: Problem details: - secondary to weakness and deconditioning - on the ground for 3 days prior to admission Status: Acute (3) Incontinence associated dermatitis: Problem details: - continue williamson and prn loperamide for loose stools (c. diff negative) - continue wound care as per surgery/Wound consult recommendations Status: Acute (4) Stage III pressure ulcer of buttock: Problem details: stage III right buttock pressure ulcer. She also has a stage II left buttock pressure ulcer. Status: Acute (5) Pressure ulcer of buttock: Problem details: - General surgery following, I&D in OR 03/04. Dr. Rice - Arian initiated on admission, discontinued on 03/06 Status: Acute (6) Lymphedema associated with obesity: Status: Acute (7) Obesity: Status: Acute (8) Self neglect: Status: Acute (9) Weakness generalized: Problem details: - PT and OT following, fall risk. Requiring assistance with ADLs - TCU placement still pending Status: Acute (10) Hematuria: Problem details: Possibly secondary to over distended bladder upon presentation combined with anticoagulation with Eliquis for atrial flutter. Renal ultrasound 03/04/2022 was unremarkable. Hemoglobin stable. UA repeated shows elevated urine wbc's, UC - no bacteria, +some yeast. Will need outpatient urology consultation. Status: Acute (11) Vaginal bleeding: Problem details: EUA, EMB and Pap smear 03/12/2022. Thankful for the support of our OBGYN partners. Pap and pathology pending. Status: Acute (12) Acute respiratory failure with hypercapnia: Problem details: Nocturnal, suggestive of obstructive sleep apnea Status: Acute Assessment and Plan: Will try again to measure her response to various interventions including low- flow oxygen supplementation via nasal cannula, CPAP, and BiPAP. Have converse with our respiratory therapist again as well as our charge nurse. Charge nurse will work with nursing staff so they adhere to the written instructions that were given them yesterday and will be given to them again today for timing of blood gas draws. Plan 1. Listen to patient. Answered her multiple questions. Patient expressed under standing and desire and willingness to proceed. 2. Patient agreeable to above stated plans and recommendations. Time Spent With Patient Total time spent: 40 minutes Subjective Time Seen by Provider: 07:30 Date Seen: 03/15/22 Interval history: Daily Progress Note - Hospital Medicine Day #: 14 CC: A FLUTTER WITH RVR (RESOLVED), SEVERE WEAKNESS/BEDBOUND, DECUBITUS ULCERS, POSTMENOPAUSAL BLEEDING, NOCTURNAL HYPERCAPNIC RESPIRATORY FAILURE Procedure 03/12/22 Specimen:? Endometrial sampling and pap smear with HPV to pathology. Findings:? Exam under anesthesia: Small cervix palpates very high and anteflexed. Uterus: palpated at umbilicus and anterior position with multiple nodularity/masses palpable. Unable to assess adnexa bilaterally due to body habitus. OVERNIGHT UPDATES FROM STAFF & MED, LAB, IMAGING UPDATES -Still considering options for the care of a bariatric patient who is nonambulatory -patient can only stand briefly with both parallel bars supporting -she voices understanding that she needs to work so as to even qualify for possible rehab C diff negative on 03/07 All urine and blood cultures have been negative Echocardiogram, transthoracic, 03/03/2022: LV EF 60-65%. Decreased RV function. Moderately enlarged left atrium. Otherwise, essentially normal. For her a flutter she remains on digoxin and metoprolol. She is anticoagulated with Eliquis. She is getting lactobacillus She has several p.r.n. meds Wound care orders in place. Indicates she is sleepy and that her appetite is slowly coming back. Denies pain, nausea, vomiting. Denies dyspnea. No syncope, even with exertion yesterday. Denies lightheadedness. Attempted use of CPAP on BiPAP yesterday. She was able to tolerate these, BiPAP better than CPAP. Unfortunately our nursing staff did not follow the protocol and obtain blood gases while we were attempting these different supportive measures. Exam Narrative: Exam Narrative: Appears comfortable and in no acute distress. Alert, oriented to self, place, time, and in part to situation. Able to be reoriented to situation. Friendly, talkative, articulate. Mood and affect are congruent. Lungs are clear to auscultation. Heart tones with regular rhythm, normal S1-S2. Abdomen with active bowel sounds, soft, nontender. Extremities with trace edema. Nails on her fingers and toes are much better cap now than when she 1st came in. Const: Vital Signs, click to edit/add: Vital Signs - 24 hr 03/14/22 15:00 03/14/22 15:00 03/14/22 15:00 Temperature Pulse Rate Pulse Rate [Pulse Oximeter] 67 67 Respiratory Rate 24 24 24 Blood Pressure [Le ft Arm] 146/105 H Blood Pressure [Ri ght Arm] 142/67 H Pulse Oximetry 95 95 Oxygen Delivery Me thod Room Air Room Air Fraction of Inspir ed Oxygen 03/14/22 19:00 03/14/22 23:00 03/14/22 23:00 Temperature 97.6 F Pulse Rate Pulse Rate [Pulse Oximeter] 69 Respiratory Rate 20 20 24 Blood Pressure [Le ft Arm] 140/70 H Blood Pressure [Ri ght Arm] Pulse Oximetry 95 92 Oxygen Delivery Me thod Room Air Room Air Fraction of Inspir ed Oxygen 03/14/22 23:00 03/15/22 04:10 03/15/22 07:00 Temperature 97.7 F 97.5 F L Pulse Rate Pulse Rate [Pulse Oximeter] 78 66 66 Respiratory Rate 20 20 20 Blood Pressure [Le ft Arm] 144/74 H 144/83 H Blood Pressure [Ri ght Arm] Pulse Oximetry 92 91 Oxygen Delivery Me thod Room Air BiPAP Fraction of Inspir ed Oxygen 0.21 03/15/22 07:00 03/15/22 07:00 03/15/22 09:49 Temperature Pulse Rate 85 Pulse Rate [Pulse Oximeter] 85 Respiratory Rate 32 H 32 H Blood Pressure [Le ft Arm] 164/118 H Blood Pressure [Ri ght Arm] Pulse Oximetry 93 93 Oxygen Delivery Me thod Room Air Room Air Fraction of Inspir ed Oxygen 03/15/22 12:28 Temperature Pulse Rate Pulse Rate [Pulse Oximeter] Respiratory Rate Blood Pressure [Le ft Arm] Blood Pressure [Ri ght Arm] Pulse Oximetry Oxygen Delivery Me thod Fraction of Inspir ed Oxygen 0.21 Documenting provider has reviewed patient's vital signs: yes Labs Labs: Laboratory Results - last 24 hr 03/14/22 03/15/22 03:11 05:32 ABG pH 7.45 7.40 ABG pCO2 48 H 55 H ABG pO2 39.1 L* 34.4 L* ABG HCO3 34 H 34 H ABG Total CO2 31 H 31 H ABG O2 Saturation 78 L 66 L ABG Base Excess 8.4 H 7.7 H Carboxyhemoglobin 3.6 1.7
[2022-03-15 15:00] VITALS: BP 162/85; PULSE 66; RESP 36; TEMP 36.5; O2SAT 91
--- NOTE | 2022-03-15 19:39 | PC.NURSE ---
Nursing Care Hours: [id number] Pt this shift states they did not sleep well d/t CPAP/BIPAP study. Discussed benefits of BIPAP per study and pt agreeable to try again tonight to use it. Agreed to work on three goals of drinking 800ml this shift, get up in chair for one meal, and work with PT. Pt met all three goals. U/o was low and dark beginning of shift, u/o increasing and becoming more clear, still orange tinted. Bilat glute bandages changed, wounds cleaned and Iodosorb applied. Pt has increased respiratory rate all shift at 36/min. Pt c/o feeling winded. Non labored breathing and O2 above 92% on RA. Pt states they feel scared about vaginal biopsy results that are still pending. Pt states i am feeling kind of sorry for myself as she reflects on life and lack of support system. Sales Property Manager offered therapeutic listening and support, encouraging pt to focus on getting stronger each day. Pt appreciative of support. Using IS with vitals, hitting 500 beginning of shift, 750 at the end of shift. Vaginal bleeding moderate amount still present, changing nell pad every 8 hours.
[2022-03-15 21:00] VITALS: BP 174/95; PULSE 85; RESP 24; TEMP 36.3; O2SAT 92
[2022-03-15] MEDS: NYSTATIN POWDER 1 APPLIC TOPICAL (21:34)
[2022-03-16] VITALS (8 sets, daily range): BP systolic 106–168; BP diastolic 66–98; PULSE 66–98; RESP 18–20; TEMP 36.4–36.6; O2SAT 90–93
[2022-03-16] MEDS: LORazepam 0.5 MG TABLET PO (00:04)
[2022-03-16 05:03] LABS: Base Excess ABG 5.9 mmol/L (-3.0-3.0); Carboxyhemoglobin* 1.5 % (0.0-5.0); HCO3 ABG 34 mmol/L (21-28); Oxygen Saturation ABG 97 % (92-100); PO2 ABG 92.1 mmHG (80-105); TCO2 ABG 31 mmol/l (21-30); pH ABG 7.33 (7.35-7.45)
[2022-03-16 05:06] LABS: ABG PCO2 63 mmHG (35-45)
--- NOTE | 2022-03-16 05:15 | PC.NURSE ---
Shift note: Ativan was given at about 0000 and the The pt had been on BIPAP from 0000 to 0500 but the pt wanted to have a Bowel movement at about 0300 so the pt requested to take the BIPAP mask off despite the comic writer explaining the benefit of her using BIPAP continuos until we draw ABG, the pt was off BIPAP for about 20 minutes ([id number]), ABG was drawn a few minutes before 0500 and the pt requested to take the mask off after the blood was drawn. The pt has been in RA since with Spo2 in the low 90s. Dressing was changed at HS as ordered . Ghosh is patent and draining yellow urine. Denied chest pain and other acute distress throughout the shift. Small blood noted on the brief. Ceiling lift was used to move her in the bed .
[2022-03-16 07:03] LABS: ABG PCO2 48 mmHG (35-45); pH ABG 7.45 (7.35-7.45)
[2022-03-16 07:04] LABS: Base Excess ABG 8.4 mmol/L (-3.0-3.0); HCO3 ABG 34 mmol/L (21-28); Oxygen Saturation ABG 78 % (92-100); PO2 ABG 39.1 mmHG (80-105); TCO2 ABG 31 mmol/l (21-30)
[2022-03-16 07:05] LABS: Carboxyhemoglobin* 3.6 % (0.0-5.0)
[2022-03-16] MEDS: LACTOBACILLUS ACIDOPHILUS 1 TABLET 1 TAB PO ×3 (08:05→18:59)
[2022-03-16] MEDS: SERTRALINE 50 MG TABLET 25 MG PO (09:30)
[2022-03-16] MEDS: DIGOXIN 250 MCG TABLET PO (09:30)
[2022-03-16] MEDS: METOPROLOL TARTRATE 100 MG TABLET PO ×2 (09:30→20:38)
[2022-03-16] MEDS: APIXABAN 5 MG TABLET PO ×2 (09:31→20:38)
[2022-03-16] MEDS: NYSTATIN POWDER 1 APPLIC TOPICAL ×2 (09:31→20:38)
--- NOTE | 2022-03-16 12:46 | PM.IMPN1 ---
Progress Note: A&P Assessment and plan (1) Atrial flutter with rapid ventricular response: Problem details: -continues to be rate controlled, no acute cardiovascular issues currently - on admission, patient placed on a diltiazem GTT - transitioned well to oral metoprolol and digoxin (off of diltiazem gtt 03/04) - Eliquis for prophylaxis - discussed case with Dr. Medina of Cardiology on 03/06: Patient remains hemodynamically stable and rate controlled at this time, outpatient cardiology follow-up is appropriate to discuss cardioversion (no need for urgent transfer to tertiary care facility) - TTE obtained 03/03 Final Impressions: 1. Technically very limited exam. 2. Normal LV size, normal global systolic function with an estimated EF of 60 - 65%. 3. Enlarged RV w/ reduced function, incompletely visualized. 4. Moderately enlarged left atrium. 5. No hemodynamically significant valve disease detected. Status: Acute Assessment and Plan: This condition is stable. (2) Fall: Problem details: - secondary to weakness and deconditioning - on the ground for 3 days prior to admission Status: Acute Assessment and Plan: This condition is slowly improving albeit she continues to require total assist with most of her ADLs, still able to feed herself after food prep and setup an in great measure use arms and hands for other self cares. (3) Incontinence associated dermatitis: Problem details: - continue williamson and prn loperamide for loose stools (c. diff negative) - continue wound care as per surgery/Wound consult recommendations Status: Acute Assessment and Plan: Slowly improving. (4) Stage III pressure ulcer of buttock: Problem details: stage III right buttock pressure ulcer. She also has a stage II left buttock pressure ulcer. Alternating pressure mattress in place. Status: Acute Assessment and Plan: Slowly improving. (5) Pressure ulcer of buttock: Problem details: - General surgery following, I&D in OR 03/04. Dr. Dwayne Don initiated on admission, discontinued on 03/06 Status: Acute (6) Lymphedema associated with obesity: Status: Acute (7) Obesity: Status: Acute (8) Self neglect: Problem details: Certain level of poor judgment in regard to self cares and self awareness which allowed her to progress to her current state. Did not think to call for help when she was on the floor for several days when she 1st presented. Status: Acute (9) Weakness generalized: Problem details: - PT and OT following, fall risk. Requiring assistance with ADLs - TCU placement still pending Status: Acute (10) Hematuria: Problem details: Possibly secondary to over distended bladder upon presentation combined with anticoagulation with Eliquis for atrial flutter. Renal ultrasound 03/04/2022 was unremarkable. Hemoglobin stable. UA repeated shows elevated urine wbc's, UC - no bacteria, +some yeast. Will need outpatient urology consultation. Status: Acute (11) Vaginal bleeding: Problem details: EUA, EMB and Pap smear 03/12/2022. Thankful for the support of our OBGYN partners. Pap and pathology still pending. Status: Acute (12) Acute respiratory failure with hypercapnia: Problem details: Nocturnal, suggestive of obstructive sleep apnea Status: Acute Assessment and Plan: Continue to work with respiratory therapy to try to establish that patient does in fact qualify for BiPAP. Need to obtain arterial blood gas readings that demonstrate the benefit of the BiPAP. Still working to establish optimal thin setting for BiPAP. Plan 1. Reviewed impression with patient 2. Answered her questions 3. She expresses a certain level of awareness that it is very likely she will not be able to live independently hereafter. This is disappointing to her. 4. Continue with efforts as specified above. Await pathology. Time Spent With Patient Total time spent: 40 minutes Subjective Time Seen by Provider: 08:00 Date Seen: 03/16/22 Interval history: Daily Progress Note - Hospital Medicine Day #: 15 CC: A FLUTTER WITH RVR (RESOLVED), SEVERE WEAKNESS/BEDBOUND, DECUBITUS ULCERS, POSTMENOPAUSAL BLEEDING, NOCTURNAL HYPERCAPNIC RESPIRATORY FAILURE Procedure 03/12/22 Specimen:? Endometrial sampling and pap smear with HPV to pathology. Findings:? Exam under anesthesia: Small cervix palpates very high and anteflexed. Uterus: palpated at umbilicus and anterior position with multiple nodularity/masses palpable. Unable to assess adnexa bilaterally due to body habitus. OVERNIGHT UPDATES FROM STAFF & MED, LAB, IMAGING UPDATES -Still considering options for the care of a bariatric patient who is nonambulatory -patient has been able to stand briefly with both parallel bars supporting late last week, not over the last 2 days -she voices understanding that she needs to work so as to even qualify for possible rehab -working on trying to tolerate the BiPAP machine to help with her nocturnal hypercapnia C diff negative on 03/07 All urine and blood cultures have been negative Echocardiogram, transthoracic, 03/03/2022: LV EF 60-65%. Decreased RV function. Moderately enlarged left atrium. Otherwise, essentially normal. For her a flutter she remains on digoxin and metoprolol. She is anticoagulated with Eliquis. She is getting lactobacillus She has several p.r.n. meds Wound care orders in place. Indicates she is sleepy and that her appetite is slowly coming back. Denies pain, nausea, vomiting. Denies dyspnea. No syncope, even with exertion yesterday. Denies lightheadedness. Still working on trying to tolerate the BiPAP support. Exam Narrative: Exam Narrative: Appears comfortable. No acute distress. Alert, oriented to self, place, time, situation. Cooperative, friendly, articulate. Expresses disappointment about her devolving condition overall. Mood and affect are congruent. Heart tones with regular rhythm, normal S1-S2. Lung zones for the most part clear to auscultation. Scattered rhonchi clear with cough. No wheezing or rales. Abdomen obese with active bowel sounds, soft, nontender. Extremities without edema. I reviewed the patient's nocturnal oximetry testing. Wide variability in her heart rate and oximetry testing when not on CPAP or BiPAP. Much tighter control and less variability in heart rate and oximetry testing when on BiPAP. This finding is extremely suggestive of an underlying obstructive sleep apnea and the benefit of the BiPAP. Const: Vital Signs, click to edit/add: Vital Signs - 24 hr 03/15/22 15:00 03/15/22 15:00 03/15/22 15:00 Temperature 97.7 F Pulse Rate Pulse Rate [Pulse Oximeter] 66 66 Respiratory Rate 36 H 36 H 36 H Blood Pressure [Le ft Arm] Blood Pressure [Ri ght Arm] 162/85 H Pulse Oximetry 91 91 Oxygen Delivery Me thod Room Air Room Air Oxygen Flow Rate Fraction of Inspir ed Oxygen 03/15/22 21:00 03/16/22 00:00 03/16/22 00:00 Temperature 97.3 F L Pulse Rate Pulse Rate [Pulse Oximeter] 85 80 Respiratory Rate 24 20 20 Blood Pressure [Le ft Arm] Blood Pressure [Ri ght Arm] 174/95 H Pulse Oximetry 92 93 Oxygen Delivery Me thod BiPAP Oxygen Flow Rate Fraction of Inspir ed Oxygen 30 03/16/22 00:00 03/16/22 05:00 03/16/22 07:00 Temperature 97.8 F 97.6 F Pulse Rate Pulse Rate [Pulse Oximeter] 80 66 67 Respiratory Rate 20 20 20 Blood Pressure [Le ft Arm] Blood Pressure [Ri ght Arm] 165/98 H 161/92 H Pulse Oximetry 93 93 Oxygen Delivery Me thod BiPAP Room Air BiPAP Oxygen Flow Rate Fraction of Inspir ed Oxygen 30 03/16/22 07:00 03/16/22 07:00 03/16/22 09:30 Temperature 97.6 F Pulse Rate 67 Pulse Rate [Pulse Oximeter] 67 Respiratory Rate 20 20 Blood Pressure [Le ft Arm] 168/89 H Blood Pressure [Ri ght Arm] Pulse Oximetry 90 90 Oxygen Delivery Me thod Room Air BiPAP Room Air BiPAP Oxygen Flow Rate 1 1 Fraction of Inspir ed Oxygen 30 30 03/16/22 09:37 03/16/22 11:00 Temperature 97.6 F Pulse Rate Pulse Rate [Pulse Oximeter] 67 Respiratory Rate 20 Blood Pressure [Le ft Arm] 106/83 Blood Pressure [Ri ght Arm] Pulse Oximetry 93 Oxygen Delivery Me thod Room Air BiPAP Oxygen Flow Rate 1 Fraction of Inspir ed Oxygen 0.21 0.21 Documenting provider has reviewed patient's vital signs: yes Labs Labs: Laboratory Results - last 24 hr 03/14/22 03/15/22 03/16/22 03:11 03:11 05:00 ABG pH Cancelled 7.45 7.33 L ABG pCO2 Cancelled 48 H 63 H* ABG pO2 Cancelled 39.1 L* 92.1 ABG HCO3 Cancelled 34 H 34 H ABG Total CO2 Cancelled 31 H 31 H ABG O2 Saturation Cancelled 78 L 97 ABG Base Excess Cancelled 8.4 H 5.9 H Carboxyhemoglobin Cancelled 3.6 1.5
--- NOTE | 2022-03-16 15:17 | PC.SOCIAL ---
Discharge Planning: SW continued contacting facilities for SNF placement. [facility] in [place] (phone [phone] and fax [phone]) was recontacted and is reviewing client for admission. Admissions states they plan to have a decision yet this afternoon. The following facilities were phoned and a message was left again: 1. [facility] in [place] at [phone] (availability was indicated on Wednesday and referral was faxed) 2. [facility] at [phone] and fax of [phone] 3. [facility] at at fax of [phone] The following facilities have stated they have no availability or have denied patient for admission: 1. [facility] at [phone] indicated that they do not accept MA for any payment 2. [facility] [place] at [phone] denied admission due to assist of 3 and pressure wounds 3. [facility] facilities have indicated no bed availability for memory care in any of their facilities 4. [facility] at [phone] have indicated no availability 5. [facility] indicated they have no bariatric availability at this time SW will continue with d/c planning.
--- NOTE | 2022-03-16 19:58 | PC.NURSE ---
Pt uses BIPAP when napping or sleeping. Dressing to sacrum changed when Pt. had BM. Pt.'s coban to legs have been changed today. The pt has been in RA since with Spo2 in the low 90s when awake. Ghosh is patent and draining yellow urine.? Denied chest pain and other acute distress throughout the shift.
[2022-03-16] MEDS: SODIUM CHLORIDE 0.9 % (FLUSH) 10 ML SYRINGE 5 ML IVF (20:38)
[2022-03-17] VITALS (8 sets, daily range): BP systolic 119–177; BP diastolic 65–98; PULSE 66–107; RESP 18–20; TEMP 36.6–36.9; O2SAT 91–96
--- NOTE | 2022-03-17 06:54 | PC.NURSE ---
Patient is alert and oriented x4. Denies pain throughout this shift. Pt is incontinent of bowel, Ghosh cath in place draining adequately. Pt requires assist of two for bed mobility and reposition. Wound dressing changed per order and tolerated well. VSS, call light within reach; will call appropriately.
[2022-03-17 08:01] LABS: Hematocrit 41.2 % (33.0-51.0); Hemoglobin* 12.6 gm/dL (12.0-16.0); Mean Corpuscular HGB Conc 31 gm/dL (32-36); Mean Corpuscular Hemoglobin 27 pg (26-34); Mean Corpuscular Volume 87 fL (80-100); Platelet Count* 175 K/uL (140-440); Red Blood Count 4.75 m/uL (4.00-5.20); White Blood Count* 3.71 K/uL (4.50-11.00)
[2022-03-17 08:02] LABS: Slide Review Reflex No
[2022-03-17 08:13] LABS: Albumin* 2.8 g/dL (3.3-5.0); Chloride* 105 mmol/L (96-114)
[2022-03-17 08:14] LABS: Sodium* 140 mmol/L (135-149)
[2022-03-17 08:16] LABS: Aspartate Amino Transferase* 24 U/L (12-35); Bilirubin Total* 0.7 mg/dL (0.1-1.5); Carbon Dioxide* 35 mmol/L (20-32); Creatinine* 0.7 mg/dL (0.5-1.5); Est. Creatinine Clearance* 43.91; Estimated Glomerular Filt Rate 92 ml/min; Total Protein* 6.6 g/dL (6.0-8.3)
[2022-03-17 08:17] LABS: Alanine Aminotransferase* 24 U/L (4-35); Alkaline Phosphatase* 59 U/L (40-150); Blood Urea Nitrogen* 8 mg/dL (7-30); Calcium* 8.7 mg/dL (8.4-10.6); Glucose* 87 mg/dL (60-115)
[2022-03-17 08:29] LABS: NT Pro B Type NatriureticPept* 4640 pg/mL
[2022-03-17] MEDS: LACTOBACILLUS ACIDOPHILUS 1 TABLET 1 TAB PO ×3 (08:32→17:59)
[2022-03-17] MEDS: DIGOXIN 250 MCG TABLET PO (08:32)
[2022-03-17] MEDS: METOPROLOL TARTRATE 100 MG TABLET PO ×2 (08:33→21:13)
[2022-03-17] MEDS: NYSTATIN POWDER 1 APPLIC TOPICAL ×2 (08:33→21:13)
[2022-03-17] MEDS: SERTRALINE 50 MG TABLET 25 MG PO (08:33)
[2022-03-17] MEDS: APIXABAN 5 MG TABLET PO ×2 (08:33→21:13)
--- NOTE | 2022-03-17 10:19 | RESP.RT ---
Patient rest ing up in bed, appears comfortable. On Room Air. Patient stated was on/off BiPAP during the night, more on. Stated she slept very well, more rested this AM than in previous days. Believes the total time on BiPAP was at least 8 hours. Alternates between BiPAP at night and Room air during the day. Patient used IS well, getting to 1500 karen, great effort. Patient has good clear voice, and fair Non-productive cough.
--- NOTE | 2022-03-17 13:01 | P.IMPN_ITS ---
Progress Note: A&P Assessment and plan (1) Atrial flutter with rapid ventricular response: Problem details: -continues to be rate controlled, no acute cardiovascular issues currently - on admission, patient placed on a diltiazem GTT - transitioned well to oral metoprolol and digoxin (off of diltiazem gtt 03/04) - Eliquis for prophylaxis - discussed case with Dr. Medina of Cardiology on 03/06: Patient remains hemodynamically stable and rate controlled at this time, outpatient cardiology follow-up is appropriate to discuss cardioversion (no need for urgent transfer to tertiary care facility) - TTE obtained 03/03 Final Impressions: 1. Technically very limited exam. 2. Normal LV size, normal global systolic function with an estimated EF of 60 - 65%. 3. Enlarged RV w/ reduced function, incompletely visualized. 4. Moderately enlarged left atrium. 5. No hemodynamically significant valve disease detected. Status: Acute (2) Fall: Problem details: - secondary to weakness and deconditioning - on the ground for 3 days prior to admission Status: Acute (3) Incontinence associated dermatitis: Problem details: - continue williamson and prn loperamide for loose stools (c. diff negative) - continue wound care as per surgery/Wound consult recommendations Status: Acute (4) Stage III pressure ulcer of buttock: Problem details: stage III right buttock pressure ulcer. She also has a stage II left buttock pressure ulcer. Alternating pressure mattress in place. Status: Acute (5) Pressure ulcer of buttock: Problem details: - General surgery following, I&D in OR 03/04. Dr. Dwayne Don initiated on admission, discontinued on 03/06 Status: Acute (6) Lymphedema associated with obesity: Status: Acute (7) Obesity: Status: Acute (8) Self neglect: Problem details: Certain level of poor judgment in regard to self cares and self awareness which allowed her to progress to her current state. Did not think to call for help when she was on the floor for several days when she 1st presented. Status: Acute (9) Weakness generalized: Problem details: - PT and OT following, fall risk. Requiring assistance with ADLs - TCU placement still pending Status: Acute Assessment and Plan: Awaiting placement availability. (10) Hematuria: Problem details: Possibly secondary to over distended bladder upon presentation combined with anticoagulation with Eliquis for atrial flutter. Renal ultrasound 03/04/2022 was unremarkable. Hemoglobin stable. UA repeated shows elevated urine wbc's, UC - no bacteria, +some yeast. Will need outpatient urology consultation. Status: Acute (11) Vaginal bleeding: Problem details: EUA, EMB and Pap smear 03/12/2022. Thankful for the support of our OBGYN partners. Pap and pathology still pending. Status: Acute (12) Acute respiratory failure with hypercapnia: Problem details: Nocturnal, suggestive of obstructive sleep apnea Status: Acute Assessment and Plan: Will attempt to obtain blood gas on BiPAP after she has been asleep with BiPAP o n for a minimum of 2 hours. Have been trying this for the last couple nights and successfully. Will try again tonight. Have discussed with respiratory therapy, nursing staff, and laboratory staff now. Plan Patient agreeable with above stated plans and recommendations. She will continue to work with PT and OT. Time Spent With Patient Total time spent: 30 minutes Subjective Time Seen by Provider: 08:00 Date Seen: 03/17/22 Interval history: Daily Progress Note - [facility] Medicine Day #: 16 CC: A FLUTTER WITH RVR (RESOLVED), SEVERE WEAKNESS/BEDBOUND, DECUBITUS ULCERS, POSTMENOPAUSAL BLEEDING, NOCTURNAL HYPERCAPNIC RESPIRATORY FAILURE Procedure 03/12/22 Specimen:? Endometrial sampling and pap smear with HPV to pathology. Findings:? Exam under anesthesia: Small cervix palpates very high and anteflexed. Uterus: palpated at umbilicus and anterior position with multiple nodularity/masses palpable. Unable to assess adnexa bilaterally due to body habitus. OVERNIGHT UPDATES FROM STAFF & MED, LAB, IMAGING UPDATES -Still considering options for the care of a bariatric patient who is nonambulatory -patient has been able to stand briefly with both parallel bars supporting late last week, not over the last 2 days -she voices understanding that she needs to work so as to even qualify for possible rehab -working on trying to tolerate the BiPAP machine to help with her nocturnal hypercapnia C diff negative on 03/07 All urine and blood cultures have been negative Echocardiogram, transthoracic, 03/03/2022: LV EF 60-65%. Decreased RV function. Moderately enlarged left atrium. Otherwise, essentially normal. For her a flutter she remains on digoxin and metoprolol. She is anticoagulated with Eliquis. She is getting lactobacillus She has several p.r.n. meds Wound care orders in place. Indicates she more rested today, feels like she can try to work with PT and OT, and that her appetite is normalizing. Denies pain, nausea, vomiting. Denies dyspnea. No syncope, even with exertion yesterday. Denies lightheadedness. Still working on trying to tolerate the BiPAP support. Able to sleep for about 6-7 hours total with BiPap on last night, with settings of 18 cm H20 iPap/10 cm H20 ePap. Exam Narrative: Exam Narrative: Laying comfortably in her bed with head of bed elevated about 30?. Appears comfortable. No acute distress. Alert, oriented to self, place, time, situation. Friendly, cooperative, articulate. Less somber today than yesterday. Mood and affect are congruent. Lungs are clear to auscultation. Heart tones with regular rhythm. Abdomen is obese with active bowel sounds, soft, nontender. Bilateral lower extremity lymphedema of the thighs. No focal motor neurologic deficits. Const: Vital Signs, click to edit/add: Vital Signs - 24 hr 03/16/22 15:00 03/16/22 15:00 03/16/22 15:00 Temperature 97.8 F Pulse Rate Pulse Rate [Pulse Oximeter] 87 67 Respiratory Rate 20 20 20 Blood Pressure [Le ft Arm] 158/89 H Blood Pressure [Ri ght Arm] Pulse Oximetry 91 93 Oxygen Delivery Me thod Room Air BiPAP Room Air BiPAP Oxygen Flow Rate 1 1 Fraction of Inspir ed Oxygen 0.21 0.21 03/16/22 19:00 03/16/22 23:00 03/16/22 23:00 Temperature 98 F Pulse Rate Pulse Rate [Pulse Oximeter] 98 98 Respiratory Rate 18 18 Blood Pressure [Le ft Arm] Blood Pressure [Ri ght Arm] 148/84 H Pulse Oximetry 92 93 Oxygen Delivery Me thod Room Air Room Air Oxygen Flow Rate Fraction of Inspir ed Oxygen 03/16/22 23:00 03/17/22 03:00 03/17/22 08:32 Temperature 97.9 F 98.2 F Pulse Rate 87 Pulse Rate [Pulse Oximeter] 66 68 Respiratory Rate 18 18 Blood Pressure [Le ft Arm] Blood Pressure [Ri ght Arm] 140/66 H 128/73 Pulse Oximetry 93 96 Oxygen Delivery Me thod Room Air Room Air Oxygen Flow Rate Fraction of Inspir ed Oxygen 03/17/22 08:40 03/17/22 08:40 Temperature Pulse Rate Pulse Rate [Pulse Oximeter] Respiratory Rate 20 Blood Pressure [Le ft Arm] Blood Pressure [Ri ght Arm] Pulse Oximetry 93 Oxygen Delivery Me thod Room Air Oxygen Flow Rate Fraction of Inspir ed Oxygen 0.21 Documenting provider has reviewed patient's vital signs: yes Labs Labs: Laboratory Results - last 24 hr 03/17/22 03/17/22 07:50 07:50 WBC 3.71 L RBC 4.75 Hgb 12.6 Hct 41.2 MCV 87 MCH 27 MCHC 31 L Plt Count 175 Sodium 140 Potassium 4.0 Chloride 105 Carbon Dioxide 35 H BUN 8 Creatinine 0.7 Estimated Creat Clear 43.91 Estimated GFR 92 Glucose 87 Calcium 8.7 Total Bilirubin 0.7 AST 24 ALT 24 Alkaline Phosphatase 59 NT-Pro-B Natriuret Pep 4640 Total Protein 6.6 Albumin 2.8 L
--- NOTE | 2022-03-17 16:34 | PC.SOCIAL ---
Discharge planning- Phone call to [facility] admissions at [phone]. Left a voicemail following up on the status of the assessment for pt for possible admission. Social Work will continue to follow up as necessary.
--- NOTE | 2022-03-17 18:56 | PC.NURSE ---
Addendum entered by Ami Alvarez RN 03/17/22 19:12: conveyed to the oncoming HS shift that ABG's need to be drawn 2hrs after wearing Bipap. Rn needs to call the lab an hour and a half prior to the 2hrs so that they will be drawing ABG's close to the 2hr karen as possible. Original Note: End of Shift [id number]: Pt. pleasant and cooperative w/cares. Pt uses BIPAP when napping or sleeping. Dressing to sacrum changed when Pt. had BM x2. Pt. on RA Spo2 in the low 90s when awake. Ghosh is patent and draining yellow urine.?Denied chest pain and other acute distress throughout the shift. Up to chair for part of the morning.
[2022-03-17] MEDS: SODIUM CHLORIDE 0.9 % (FLUSH) 10 ML SYRINGE 5 ML IVF (21:12)
[2022-03-18] VITALS (7 sets, daily range): BP systolic 117–138; BP diastolic 47–85; PULSE 66–75; RESP 18–22; TEMP 36.4–36.6; O2SAT 92–96
[2022-03-18 01:53] LABS: ABG PCO2 51 mmHG (35-45); Base Excess ABG 9.5 mmol/L (-3.0-3.0); Carboxyhemoglobin* 1.7 % (0.0-5.0); HCO3 ABG 35 mmol/L (21-28); Oxygen Saturation ABG 94 % (92-100); PO2 ABG 65.3 mmHG (80-105); TCO2 ABG 32 mmol/l (21-30); pH ABG 7.45 (7.35-7.45)
--- NOTE | 2022-03-18 06:08 | PC.NURSE ---
Patient is alert and oriented x4, denies pain on assessment. Ghosh cath in place patent, draining adequately. Wound dressing change completed, turned and repositioned as scheduled. Pt on BIPAP tolerating well. VSS, call light within reach; will call appropriately.
[2022-03-18] MEDS: LACTOBACILLUS ACIDOPHILUS 1 TABLET 1 TAB PO ×3 (08:45→19:01)
[2022-03-18] MEDS: DIGOXIN 250 MCG TABLET PO (09:40)
[2022-03-18] MEDS: METOPROLOL TARTRATE 100 MG TABLET PO ×2 (09:40→20:15)
[2022-03-18] MEDS: SERTRALINE 50 MG TABLET 25 MG PO (09:41)
[2022-03-18] MEDS: APIXABAN 5 MG TABLET PO ×2 (09:41→20:11)
[2022-03-18] MEDS: NYSTATIN POWDER 1 APPLIC TOPICAL ×2 (09:42→20:14)
--- NOTE | 2022-03-18 10:10 | NUTR.NU ---
Nutrition Update: RDN with change in supplement - see most recent nutritional assessment. RDN ordered supplement FairAdvasense Core Power supplement (chocolate) for patient to provide BID. Fairlife Core Power BID provides 340 kcals and 52 grams of protein to help meet estimated protein needs for healing. RDN visited with patient whom reported meals have been ok. She has been receiving Ensure Enlive once daily, which she has been liking. She is in agreement to switch to [employer]life Core Power supplement. Had no questions or concerns at this time. RDN informed charge nurse of supplement - supplement located in fridge on [address] and is labeled. RDN will continue to monitor and follow-up prn.
--- NOTE | 2022-03-18 16:53 | P.IMPN_ITS ---
Progress Note: A&P Assessment and plan (1) Atrial flutter with rapid ventricular response: Problem details: -continues to be rate controlled, no acute cardiovascular issues currently - on admission, patient placed on a diltiazem GTT - transitioned well to oral metoprolol and digoxin (off of diltiazem gtt 03/04) - Eliquis for prophylaxis - discussed case with Dr. Medina of Cardiology on 03/06: Patient remains hemodynamically stable and rate controlled at this time, outpatient cardiology follow-up is appropriate to discuss cardioversion (no need for urgent transfer to tertiary care facility) - TTE obtained 03/03 Final Impressions: 1. Technically very limited exam. 2. Normal LV size, normal global systolic function with an estimated EF of 60 - 65%. 3. Enlarged RV w/ reduced function, incompletely visualized. 4. Moderately enlarged left atrium. 5. No hemodynamically significant valve disease detected. Status: Acute (2) Fall: Problem details: - secondary to weakness and deconditioning - on the ground for 3 days prior to admission Status: Acute (3) Incontinence associated dermatitis: Problem details: - continue williamson and prn loperamide for loose stools (c. diff negative) - continue wound care as per surgery/Wound consult recommendations Status: Acute (4) Stage III pressure ulcer of buttock: Problem details: stage III right buttock pressure ulcer. She also has a stage II left buttock pressure ulcer. Alternating pressure mattress in place. Status: Acute (5) Pressure ulcer of buttock: Problem details: - General surgery following, I&D in OR 03/04. Dr. Dwayne Don initiated on admission, discontinued on 03/06 Status: Acute (6) Lymphedema associated with obesity: Status: Acute (7) Obesity: Status: Acute (8) Self neglect: Problem details: Certain level of poor judgment in regard to self cares and self awareness which allowed her to progress to her current state. Did not think to call for help when she was on the floor for several days when she 1st presented. Status: Acute (9) Weakness generalized: Problem details: - PT and OT following, fall risk. Requiring assistance with ADLs - TCU placement still pending Status: Acute (10) Hematuria: Problem details: Possibly secondary to over distended bladder upon presentation combined with anticoagulation with Eliquis for atrial flutter. Renal ultrasound 03/04/2022 was unremarkable. Hemoglobin stable. UA repeated shows elevated urine wbc's, UC - no bacteria, +some yeast. Will need outpatient urology consultation. Status: Acute (11) Vaginal bleeding: Problem details: EUA, EMB and Pap smear 03/12/2022. Thankful for the support of our OBGYN porfirio may. Pap and pathology still pending. Status: Acute (12) Acute respiratory failure with hypercapnia: Problem details: Nocturnal, suggestive of obstructive sleep apnea. Current BiPAP settings of 18 cm H20 iPap/10 cm H20 ePap. Status: Acute Assessment and Plan: Arterial blood gas drawn after on BiPAP for 2 hours demonstrates improvement of pH and pCO2. Plan 1. 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 No availability for a bed for her at this time. 2. Will clarify with our laboratory about when we might expect results from procedures that were obtained last week. 3. Continue with current efforts. Time Spent With Patient Total time spent: 30 minutes Subjective Time Seen by Provider: 15:00 Date Seen: 03/18/22 Interval history: Daily Progress Note - [facility] Medicine Day #: 17 CC: A FLUTTER WITH RVR (RESOLVED), SEVERE WEAKNESS/BEDBOUND, DECUBITUS ULCERS, POSTMENOPAUSAL BLEEDING, NOCTURNAL HYPERCAPNIC RESPIRATORY FAILURE Procedure 03/12/22 Specimen:? Endometrial sampling and pap smear with HPV to pathology. Findings:? Exam under anesthesia: Small cervix palpates very high and anteflexed. Uterus: palpated at umbilicus and anterior position with multiple nodularity/masses palpable. Unable to assess adnexa bilaterally due to body habitus. OVERNIGHT UPDATES FROM STAFF & MED, LAB, IMAGING UPDATES -Still considering options for the care of a bariatric patient who is nonambulatory -patient has been able to stand briefly with both parallel bars supporting late last week, not over the last 2 days -she voices understanding that she needs to work so as to even qualify for possible rehab -working on trying to tolerate the BiPAP machine to help with her nocturnal hypercapnia C diff negative on 03/07 All urine and blood cultures have been negative Echocardiogram, transthoracic, 03/03/2022: LV EF 60-65%. Decreased RV function. Moderately enlarged left atrium. Otherwise, essentially normal. For her a flutter she remains on digoxin and metoprolol. She is anticoagulated with Eliquis. She is getting lactobacillus She has several p.r.n. meds Wound care orders in place. Again notes that she feels generally well today. Working with physical occupational therapy. Aware of her weakness and decreased endurance. Denies pain, nausea, vomiting. Denies dyspnea. No syncope, even with exertion yesterday. Denies lightheadedness. Did well with BiPAP last night, with current settings of 18 cm H20 iPap/10 cm H20 ePap. Indicates she slept well and feels rested. Exam Narrative: Exam Narrative: Appears comfortable and in no acute distress. Friendly and cooperative. Articulate. Alert, oriented to self, place, time, situation. Lungs are clear to auscultation. Heart tones with regular rhythm. Abdomen with active bowel sounds, soft, nontender. Moves all 4 extremities. Const: Vital Signs, click to edit/add: Vital Signs - 24 hr 03/17/22 19:00 03/17/22 23:00 03/17/22 23:00 Temperature 98.1 F 97.9 F Pulse Rate Pulse Rate [Pulse Oximeter] 107 H 66 Respiratory Rate 18 18 Blood Pressure [Ri ght Arm] 125/95 H 144/80 H Pulse Oximetry 91 95 Oxygen Delivery Me thod Room Air Room Air BiPAP Fraction of Inspir ed Oxygen 03/17/22 23:00 03/18/22 03:00 03/18/22 09:40 Temperature 98 F Pulse Rate 70 Pulse Rate [Pulse Oximeter] 66 66 Respiratory Rate 18 18 Blood Pressure [Ri ght Arm] 117/71 Pulse Oximetry 96 Oxygen Delivery Me thod Room Air Fraction of Inspir ed Oxygen 03/18/22 07:00 03/18/22 07:00 03/18/22 10:15 Temperature 97.8 F Pulse Rate Pulse Rate [Pulse Oximeter] 70 Respiratory Rate 20 20 Blood Pressure [Ri ght Arm] 138/85 Pulse Oximetry 92 92 Oxygen Delivery Me thod Room Air Room Air Fraction of Inspir ed Oxygen 21 03/18/22 10:15 Temperature Pulse Rate Pulse Rate [Pulse Oximeter] Respiratory Rate 22 Blood Pressure [Ri ght Arm] Pulse Oximetry 92 Oxygen Delivery Me thod Room Air Fraction of Inspir ed Oxygen Documenting provider has reviewed patient's vital signs: yes Labs Labs: Laboratory Results - last 24 hr 03/18/22 01:45 ABG pH 7.45 ABG pCO2 51 H ABG pO2 65.3 L ABG HCO3 35 H ABG Total CO2 32 H ABG O2 Saturation 94 ABG Base Excess 9.5 H Carboxyhemoglobin 1.7
[2022-03-18] MEDS: LOPERAMIDE HCL 2 MG CAPSULE PO ×2 (17:34→20:12)
--- NOTE | 2022-03-18 19:53 | PC.NURSE ---
shift note: pt up to recliner with ceiling lift & assist of 2. pt had 3 moderate loose BM's. Pt medicated with immodium x1. LS dim. Pt denies pain. buttock sacral drsg changed x2. drsg to buttock with moderate sersang drainage. wound bed to buttock wound raw with irregular edges. No IV present.
[2022-03-18] MEDS: SODIUM CHLORIDE 0.9 % (FLUSH) 10 ML SYRINGE 5 ML IVF (20:14)
[2022-03-19] MEDS: ACETAMINOPHEN 325 MG TABLET 975 MG PO (01:06)
[2022-03-19 03:00] VITALS: BP 119/63; PULSE 70; RESP 18; TEMP 36.6; O2SAT 94
--- NOTE | 2022-03-19 06:11 | PC.NURSE ---
VSS, pt on BIPAP tolerating well. Patient is alert and oriented 4. Pain managed with PRN Tylenol x1. Pt is incontinent of bowel and using williamson cath, draining adequately. Requires assist of two with bed mobility/turn and reposition. Wound dressing changed per scheduled. Pt is comfortable sleeping. Call light within reach, will call appropriately.
[2022-03-19 10:00] VITALS: BP 142/74; PULSE 66; RESP 20; TEMP 36.4; O2SAT 96
[2022-03-19] MEDS: METOPROLOL TARTRATE 100 MG TABLET PO ×2 (10:23→20:22)
[2022-03-19] MEDS: SERTRALINE 50 MG TABLET 25 MG PO (10:23)
[2022-03-19] MEDS: LACTOBACILLUS ACIDOPHILUS 1 TABLET 1 TAB PO ×3 (10:23→20:18)
[2022-03-19] MEDS: APIXABAN 5 MG TABLET PO ×2 (10:23→20:22)
[2022-03-19 10:24] VITALS: PULSE 66
[2022-03-19] MEDS: DIGOXIN 250 MCG TABLET PO (10:24)
[2022-03-19] MEDS: NYSTATIN POWDER 1 APPLIC TOPICAL ×2 (10:25→20:22)
[2022-03-19] MEDS: LOPERAMIDE HCL 2 MG CAPSULE PO ×3 (10:31→18:18)
--- NOTE | 2022-03-19 13:36 | P.IMPN_ITS ---
Progress Note: A&P Assessment and plan (1) Atrial flutter with rapid ventricular response: Problem details: -continues to be rate controlled, no acute cardiovascular issues currently - on admission, patient placed on a diltiazem GTT - transitioned well to oral metoprolol and digoxin (off of diltiazem gtt 03/04) - Eliquis for prophylaxis - discussed case with Dr. Medina of Cardiology on 03/06: Patient remains hemodynamically stable and rate controlled at this time, outpatient cardiology follow-up is appropriate to discuss cardioversion (no need for urgent transfer to tertiary care facility) - TTE obtained 03/03 Final Impressions: 1. Technically very limited exam. 2. Normal LV size, normal global systolic function with an estimated EF of 60 - 65%. 3. Enlarged RV w/ reduced function, incompletely visualized. 4. Moderately enlarged left atrium. 5. No hemodynamically significant valve disease detected. Status: Acute Assessment and Plan: Continue with current rate control efforts. (2) Fall: Problem details: - secondary to weakness and deconditioning - on the ground for 3 days prior to admission Status: Acute Assessment and Plan: Continue with current efforts to help address her weakness and endurance. If she is ever going to overcome this she will need long-term, intense efforts to address. (3) Incontinence associated dermatitis: Problem details: - continue williamson and prn loperamide for loose stools (c. diff negative) - continue wound care as per surgery/Wound consult recommendations Status: Acute Assessment and Plan: Much improved. (4) Stage III pressure ulcer of buttock: Problem details: stage III right buttock pressure ulcer. She also has a stage II left buttock pressure ulcer. Alternating pressure mattress in place. Status: Acute Assessment and Plan: Slowly resolving. (5) Pressure ulcer of buttock: Problem details: - General surgery following, I&D in OR 03/04. Dr. 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 Status: Acute (8) Self neglect: Problem details: Certain level of poor judgment in regard to self cares and self awareness which allowed her to progress to her current state. Did not think to call for help when she was on the floor for several days when she 1st presented. Status: Acute Assessment and Plan: I gather from her that she is struggling with some guilt in this regard. (9) Weakness generalized: Problem details: - PT and OT following, fall risk. Requiring assistance with ADLs - TCU placement still pending Status: Acute (10) Hematuria: Problem details: Possibly secondary to over distended bladder upon presentation combined with anticoagulation with Eliquis for atrial flutter. Renal ultrasound 03/04/2022 was unremarkable. Hemoglobin stable. UA repeated shows elevated urine wbc's, UC - no bacteria, +some yeast. Will need outpatient urology consultation. Status: Acute (11) Vaginal bleeding: Problem details: EUA, EMB and Pap smear 03/12/2022. Thankful for the support of our OBGYN partners. Pap and pathology come back on 03/19/2022 as inconclusive. Status: Acute Assessment and Plan: I reviewed the results of pathology with the patient and with Dr. Wagner. Dr. Wagner will review these findings with the patient and the implications and potential means of addressing this. (12) Acute respiratory failure with hypercapnia: Problem details: Nocturnal, suggestive of obstructive sleep apnea. Current BiPAP settings of 18 cm H20 iPap/10 cm H20 ePap, helps improve her arterial blood gases substantially. Status: Acute Plan 1. Reviewed above with patient. 2. Answered her questions. 3. Continue with current efforts while here in the hospital. 4. The main reason why she is still here in the hospital is because we are unable to find a safe discharge disposition plan for her. Time Spent With Patient Total time spent: 50 minutes Subjective Time Seen by Provider: 12:00 Date Seen: 03/19/22 Interval history: Daily Progress Note - Hospital Medicine Day #: 18 CC: A FLUTTER WITH RVR (RESOLVED), SEVERE WEAKNESS/BEDBOUND, DECUBITUS ULCERS, POSTMENOPAUSAL BLEEDING, NOCTURNAL HYPERCAPNIC RESPIRATORY FAILURE Procedure 03/12/22 Specimen:? Endometrial sampling and pap smear with HPV to pathology. Findings:? Exam under anesthesia: Small cervix palpates very high and anteflexed. Uterus: palpated at umbilicus and anterior position with multiple nodularity/masses palpable. Unable to assess adnexa bilaterally due to body habitus. OVERNIGHT UPDATES FROM STAFF & MED, LAB, IMAGING UPDATES -Still considering options for the care of a bariatric patient who is nonambulatory -patient has been able to stand briefly with both parallel bars supporting late last week, not over the last 2 days -she voices understanding that she needs to work so as to even qualify for possible rehab -working on trying to tolerate the BiPAP machine to help with her nocturnal hypercapnia C diff negative on 03/07 All urine and blood cultures have been negative Echocardiogram, transthoracic, 03/03/2022: LV EF 60-65%. Decreased RV function. Moderately enlarged left atrium. Otherwise, essentially normal. For her a flutter she remains on digoxin and metoprolol. She is anticoagulated with Eliquis. She is getting lactobacillus She has several p.r.n. meds Wound care orders in place. She feels generally well today. Working with physical occupational therapy. Aware of her weakness and decreased endurance. Denies pain, nausea, vomiting. Denies dyspnea. No syncope, even with exertion yesterday. Denies lightheadedness. Doing well with BiPAP last night, with current settings of 18 cm H20 iPap/10 cm H20 ePap. Indicates she slept well and feels rested. Exam Narrative: Exam Narrative: Appears comfortable and in no acute distress. When I 1st see her this morning she is laying in her bed. When I see her later in the day she is sitting in the recliner chair. Alert, oriented to self, place, time, situation. Talkative, articulate, cooperative. Mood and affect are congruent. She tears up when I inform her that the results of the pathology are inconclusive from her endometrial biopsy 1 week ago. Lungs are clear to auscultation. Heart tones with regular rhythm. Abdomen is obese with active bowel sounds, soft, nontender. No focal motor neurologic deficits. Does have generalized weakness. Const: Vital Signs, click to edit/add: Vital Signs - 24 hr 03/19/22 10:39 03/18/22 15:00 03/18/22 15:00 Temperature 97.8 F Pulse Rate Pulse Rate [Pulse Oximeter] 70 Respiratory Rate 20 18 Blood Pressure [Le ft Arm] Blood Pressure [Ri ght Arm] 138/85 Pulse Oximetry 92 Oxygen Delivery Me thod Room Air Fraction of Inspir ed Oxygen 21 03/18/22 15:00 03/18/22 19:00 03/18/22 23:00 Temperature 97.9 F Pulse Rate Pulse Rate [Pulse Oximeter] 75 75 Respiratory Rate 18 18 Blood Pressure [Le ft Arm] Blood Pressure [Ri ght Arm] 136/47 L Pulse Oximetry 92 93 Oxygen Delivery Me thod Room Air Room Air Fraction of Inspir ed Oxygen 03/18/22 23:00 03/18/22 23:00 03/19/22 03:00 Temperature 97.6 F 98 F Pulse Rate Pulse Rate [Pulse Oximeter] 67 70 Respiratory Rate 18 18 Blood Pressure [Le ft Arm] Blood Pressure [Ri ght Arm] 126/75 119/63 Pulse Oximetry 94 94 94 Oxygen Delivery Me thod BiPAP BiPAP BiPAP Fraction of Inspir ed Oxygen 03/19/22 10:24 03/19/22 10:00 03/19/22 10:00 Temperature 97.5 F L Pulse Rate 66 Pulse Rate [Pulse Oximeter] 66 Respiratory Rate 20 20 Blood Pressure [Le ft Arm] 142/74 H Blood Pressure [Ri ght Arm] Pulse Oximetry 96 96 Oxygen Delivery Me thod Room Air Room Air Fraction of Inspir ed Oxygen Documenting provider has reviewed patient's vital signs: yes Labs Labs: Endometrial biopsy from 03/12/2022 comes back inconclusive.
--- NOTE | 2022-03-19 13:40 | PM.GYNCN1 ---
TRAFFIC OPERATOR - CN: HPI Data of Consult Time Seen by Provider: 13:40 Date Seen: 03/19/22 Patient: [facility] Patient Requesting Physician: Adriano Mujica MD Primary Care Provider: Not a Local Provider Consult Narrative Reason for consult: vaginal bleeding Narrative: Emily Gonzalez is a 72 year old female s/p exam under anesthesia and endometrial biopsy on 03/12/2022. Patient is still limited due to inability to obtain safe disposition for the patient. Since I last saw her, patient is now requiring BiPAP at night. She is still unable to ambulate and requires a significant amount of assistance for ADL. Currently not endorsing any vaginal bleeding. Pathology results showed: 1. Scant endometrial tissue with breakdown and atypical glandular proliferation 2. Fragments suggestive of endometrial polyps Pathology comments states the specimen contains endometrial glands with architectural complexity and cytologic atypia in a background of extensive breakdown and inflammation. While the breakdown me be because of the atypia, a neoplastic process including malignancy cannot be excluded. Recommendation is for additional endometrial sampling via curetting to obtain a more definitive diagnosis. I reviewed the pathology with her and discussed that and dilation and curettage was attempted during our last procedure under sedation. However, given her habitus and tolerant of the procedure, even while under sedation, we were unable to obtain and curetted sample. Even with endometrial Pipelle had to be threaded into her uterine cavity blindly as we were unable to adequately visualized her cervix with retractors. I would anticipate her needing general anesthesia for maximum relaxation to be able to attempt a D&C. Even then, given that she is unable to bend her legs, exposure would still be very limited. We discussed that as of now, general anesthesia is not a safe option for her given her worsening respiratory status and our facility doesn't have an ICU. She asked about hysterectomy. We discussed that she would be a poor candidate for definitive management with a hysterectomy. She would need an open abdominal hysterectomy given the size of her uterus and her functional status would put her at very high risk for various surgical complications including hemorrhage, poor wound healing, infection and VTE. This can be reevaluated if she does well with rehabilitation and is able to ambulate. She is unsure what her goals are at this point with regards to her health. She's unsure about how well she'll do in rehabilitation. I acknowledged the difficult situation she is in and reassured her that our care team's main goal is to keep her as safe as possible. Given that her vaginal bleeding is rare and not severe, she has other pressing medical issues that need to be optimized first and foremost. I recommend starting her on Provera 10mg QD for endometrial protection, until such time that we can safely pursue other surgical options which include, D&C/hysterectomy. ASSESSMENT: Postoperative visit PLAN: 1. Pathology report is reviewed with patient. She knows to let her care team know if she has further questions/discussion points. 2. Recommend Provera 10 mg QD starting now 3. Thank you for consulting on Emily. TRAFFIC OPERATOR will sign off at this point. Please reach out as needed. cc:: CC: Adriano Mujica MD [facility] Medical History Lymphedema associated with obesity Obesity Weakness generalized Social History Past 12 mos, fear food will run out before able to buy more: never true In past 12 months, food didn't last until money to buy more: never true Are you following a diet prescribed by a doctor: No Are you following a special diet: No Highest level of school completed/degree received: some college, no degree Smoking Status: Never smoker Do you use any of these nicotine containing products: None Second hand tobacco smoke exposure: No How often do you have a drink containing alcohol: monthly or less Alcohol type details: no alcohol for past 5 years; daily drinker for 2 years before that AUDIT-C Alcohol total score: 1 Non-prescribed substance use: denies use Caffeine: Yes (2 cups of coffee daily) service: No Meds Home Medications and Allergies Home Medications Medication Instructions Recorded Confirmed Type No Known Home Medications 03/02/22 03/02/22 History Allergies Allergy/AdvReac Type Severity Reaction Status Date / Time No Known Drug Allergies Allergy Verified 03/02/22 11:08 TRAFFIC OPERATOR - Exam Physical Exam: Vital signs: Temp Pulse Resp BP Pulse Ox O2 Del Method O2 Flow Rate 97.5 F L 66 20 142/74 H 96 1 03/19/22 10:00 03/19/22 10:24 03/19/22 10:00 03/19/22 10:00 03/19/22 10:00 03/19/22 10:00 03/17/22 15:00 FiO2 21 03/19/22 10:39
[2022-03-19 15:00] VITALS: PULSE 68; RESP 18; RESP 20; O2SAT 94
[2022-03-19 20:00] VITALS: BP 136/69; PULSE 68; RESP 18; TEMP 36.4; O2SAT 92
[2022-03-20] VITALS (9 sets, daily range): BP systolic 133–154; BP diastolic 77–90; PULSE 66–82; RESP 16–20; TEMP 36.3–37.1; O2SAT 92–98
--- NOTE | 2022-03-20 07:44 | PC.NURSE ---
Pt alert and oriented x3, pleasant and cooperative. Afebrile. Pt?denies pain, chest pain, N/V and SOB. Pt rested in bed throughout?night with Bipap on. Pt has williamson that is patent and draining. Pt dressing to right and left buttocks is CDI. ???
[2022-03-20] MEDS: LACTOBACILLUS ACIDOPHILUS 1 TABLET 1 TAB PO ×3 (08:14→18:53)
[2022-03-20] MEDS: SERTRALINE 50 MG TABLET 25 MG PO (09:04)
[2022-03-20] MEDS: DIGOXIN 250 MCG TABLET PO (09:05)
[2022-03-20] MEDS: APIXABAN 5 MG TABLET PO ×2 (09:05→20:36)
[2022-03-20] MEDS: SODIUM CHLORIDE 0.9 % (FLUSH) 10 ML SYRINGE 5 ML IVF ×2 (09:08→20:46)
[2022-03-20] MEDS: NYSTATIN POWDER 1 APPLIC TOPICAL ×2 (09:08→20:46)
[2022-03-20] MEDS: METOPROLOL TARTRATE 100 MG TABLET PO ×2 (09:08→20:46)
[2022-03-20] MEDS: LOPERAMIDE HCL 2 MG CAPSULE PO (09:14)
--- NOTE | 2022-03-20 13:44 | P.IMPN_ITS ---
Progress Note: A&P Assessment and plan (1) Atrial flutter with rapid ventricular response: Problem details: -continues to be rate controlled, no acute cardiovascular issues currently - on admission, patient placed on a diltiazem GTT - transitioned well to oral metoprolol and digoxin (off of diltiazem gtt 03/04) - Eliquis for prophylaxis - discussed case with Dr. Medina of Cardiology on 03/06: Patient remains hemodynamically stable and rate controlled at this time, outpatient cardiology follow-up is appropriate to discuss cardioversion (no need for urgent transfer to tertiary care facility) - TTE obtained 03/03 Final Impressions: 1. Technically very limited exam. 2. Normal LV size, normal global systolic function with an estimated EF of 60 - 65%. 3. Enlarged RV w/ reduced function, incompletely visualized. 4. Moderately enlarged left atrium. 5. No hemodynamically significant valve disease detected. Status: Acute Assessment and Plan: Continue with current interventions. (2) Fall: Problem details: - secondary to weakness and deconditioning - on the ground for 3 days prior to admission Status: Acute (3) Incontinence associated dermatitis: Problem details: - continue williamson and prn loperamide for loose stools (c. diff negative) - continue wound care as per surgery/Wound consult recommendations Status: Acute Assessment and Plan: Will need to discontinue Williamson catheter in near future. (4) Stage III pressure ulcer of buttock: Problem details: stage III right buttock pressure ulcer. She also has a stage II left buttock pressure ulcer. Alternating pressure mattress in place. Status: Acute Assessment and Plan: Continue with current interventions. (5) Pressure ulcer of buttock: Problem details: - General surgery following, I&D in OR 03/04. Dr. 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 Status: Acute Assessment and Plan: She is agreeable to initiate progesterone therapy at 10 mg once daily per recommendation from our vp product, Dr. Wagner. (8) Self neglect: Problem details: Certain level of poor judgment in regard to self cares and self awareness which allowed her to progress to her current state. Did not think to call for help when she was on the floor for several days when she 1st presented. Status: Acute (9) Weakness generalized: Problem details: - PT and OT following, fall risk. Requiring assistance with ADLs - TCU placement still pending Status: Acute Assessment and Plan: She is too weak to live alone. Warrants 24 hour penitentiary cares. (10) Hematuria: Problem details: Possibly secondary to over distended bladder upon presentation combined with anticoagulation with Eliquis for atrial flutter. Renal ultrasound 03/04/2022 was unremarkable. Hemoglobin stable. UA repeated shows elevated urine wbc's, UC - no bacteria, +some yeast. Will need outpatient urology consultation. Status: Acute (11) Vaginal bleeding: Problem details: EUA, EMB and Pap smear 03/12/2022. Thankful for the support of our OBGYN partners - please see their final consult note from 03/19/2022. Pap and pathology come back on 03/19/2022 as inconclusive. Status: Acute (12) Acute respiratory failure with hypercapnia: Problem details: Nocturnal, suggestive of obstructive sleep apnea. Current BiPAP settings of 18 cm H20 iPap/10 cm H20 ePap, helps improve her arterial blood gases substantially. Status: Acute Assessment and Plan: Continue with BiPAP at at bedtime. Meets criteria for ongoing use beyond hospitalization such as in the alf. Plan 1. Main reason she still in the hospital is because we are unable to find a alf that will accept her. 2. Continue with supportive efforts. 3. Continue with efforts to find a place for her to transition to. Time Spent With Patient Total time spent: 30 minutes Subjective Time Seen by Provider: 12:00 Date Seen: 03/20/22 Interval history: Daily Progress Note - Hospital Medicine Day #: 19 CC: A FLUTTER WITH RVR (RESOLVED), SEVERE WEAKNESS/BEDBOUND, DECUBITUS ULCERS, POSTMENOPAUSAL BLEEDING, NOCTURNAL HYPERCAPNIC RESPIRATORY FAILURE Procedure 03/12/22 Specimen:? Endometrial sampling and pap smear with HPV to pathology. Findings:? Exam under anesthesia: Small cervix palpates very high and anteflexed. Uterus: palpated at umbilicus and anterior position with multiple nodularity/masses palpable. Unable to assess adnexa bilaterally due to body habitus. C diff negative on 03/07 All urine and blood cultures have been negative Echocardiogram, transthoracic, 03/03/2022: LV EF 60-65%. Decreased RV function. Moderately enlarged left atrium. Otherwise, essentially normal. For her a flutter she remains on digoxin and metoprolol. She is anticoagulated with Eliquis. She is getting lactobacillus She has several p.r.n. meds Wound care orders in place. She feels generally well today. Working with physical occupational therapy. Aware of her weakness and decreased endurance. Denies pain, nausea, vomiting. Denies dyspnea. No syncope, even with exertion yesterday. Denies lightheadedness. Doing well with BiPAP last night, with current settings of 18 cm H20 iPap/10 cm H20 ePap. Indicates she slept well and feels rested. -Still considering options for the care of a bariatric patient who is nonambulatory -patient has been able to stand only briefly with both parallel bars supporting -she voices understanding that she needs to continue to work so as to even qualify for possible rehab -I reviewed with her the recommendations from the vp product in regard to initiation of Provera 10 mg once daily. She expressed a desire to proceed with this. Exam Narrative: Exam Narrative: Appears comfortable and in no acute distress. In bed with head of bed elevated in legs outstretched in front of her. In bariatric bed with alternating pressure mattress for optimal off-loading. Alert, oriented to self, place, time, situation. Articulate, cooperative, friendly. Mood and affect are congruent. Vision and hearing are grossly normal. Lungs are clear to auscultation without wheezing, rhonchi, or rales. No CVA tenderness. Heart tones with regular rhythm, normal S1-S2. Abdomen obese with active bowel sounds, soft, nontender. Lymphedema of thighs. Generalized weakness with no focal motor neurologic deficits. Const: Vital Signs, click to edit/add: Vital Signs - 24 hr 03/20/22 10:07 03/19/22 15:00 03/19/22 15:00 Temperature Pulse Rate Pulse Rate [Pulse Oximeter] Respiratory Rate 20 20 Blood Pressure [Le ft Arm] Blood Pressure [Ri ght Arm] Pulse Oximetry 94 Oxygen Delivery Me thod Room Air Oxygen Flow Rate Fraction of Inspir ed Oxygen 0.21 03/19/22 15:00 03/19/22 20:00 03/20/22 00:20 Temperature 97.5 F L Pulse Rate Pulse Rate [Pulse Oximeter] 68 68 Respiratory Rate 18 18 20 Blood Pressure [Le ft Arm] Blood Pressure [Ri ght Arm] 136/69 Pulse Oximetry 94 92 92 Oxygen Delivery Me thod Room Air Room Air Room Air Oxygen Flow Rate Fraction of Inspir ed Oxygen 03/20/22 00:20 03/20/22 03:00 03/20/22 09:05 Temperature 97.4 F L Pulse Rate 68 Pulse Rate [Pulse Oximeter] 66 Respiratory Rate 20 18 Blood Pressure [Le ft Arm] Blood Pressure [Ri ght Arm] 152/90 H Pulse Oximetry 92 Oxygen Delivery Me thod Room Air Oxygen Flow Rate Fraction of Inspir ed Oxygen 03/20/22 07:00 03/20/22 07:00 03/20/22 07:00 Temperature 97.7 F Pulse Rate Pulse Rate [Pulse Oximeter] 68 68 Respiratory Rate 18 18 18 Blood Pressure [Le ft Arm] 135/85 Blood Pressure [Ri ght Arm] Pulse Oximetry 98 98 Oxygen Delivery Me thod BiPAP BiPAP Oxygen Flow Rate 1 1 Fraction of Inspir ed Oxygen 21 21 03/20/22 11:00 Temperature 98.0 F Pulse Rate Pulse Rate [Pulse Oximeter] 69 Respiratory Rate 18 Blood Pressure [Le ft Arm] 150/88 H Blood Pressure [Ri ght Arm] Pulse Oximetry 93 Oxygen Delivery Me thod Room Air BiPAP Oxygen Flow Rate 1 Fraction of Inspir ed Oxygen 0.21 Documenting provider has reviewed patient's vital signs: yes
--- NOTE | 2022-03-20 18:16 | PC.NURSE ---
[id number]: Pt. pleasant and cooperative w/cares. Pt uses BIPAP when napping or sleeping. Dressing to sacrum changed when Pt. had BM x1. Pt. on RA Spo2 in the low 90s when awake. Ghosh is patent and draining yellow urine.?Denied chest pain and other acute distress throughout the shift. Up to wheel chair for part of the morning and worked with PT and OT. Tolerated activity well
[2022-03-21] VITALS (8 sets, daily range): BP systolic 132–159; BP diastolic 76–95; PULSE 65–84; RESP 16–20; TEMP 36.4–37; O2SAT 90–95
--- NOTE | 2022-03-21 02:58 | PC.NURSE ---
Pt rested well this night with BiPap on. Pleasant and cooperative. VS unremarkable.
[2022-03-21] MEDS: LACTOBACILLUS ACIDOPHILUS 1 TABLET 1 TAB PO ×3 (08:28→17:51)
[2022-03-21] MEDS: SERTRALINE 50 MG TABLET 25 MG PO (09:08)
[2022-03-21] MEDS: DIGOXIN 250 MCG TABLET PO (09:08)
[2022-03-21] MEDS: METOPROLOL TARTRATE 100 MG TABLET PO ×2 (09:08→19:55)
[2022-03-21] MEDS: MEDROXYPROGESTERONE 5 MG TABLET 10 MG PO (09:09)
[2022-03-21] MEDS: APIXABAN 5 MG TABLET PO ×2 (09:09→19:55)
[2022-03-21] MEDS: NYSTATIN POWDER 1 APPLIC TOPICAL ×2 (09:09→19:55)
--- NOTE | 2022-03-21 14:33 | PC.NURSE ---
End of Shift: Patient pleasant and cooperative. Patient vitally stable, lungs diminished w/crackles, BS WNL, No IV. Patient williamson draining and intact, straw with sediment and strong odor. Patient had one moderate formed BM on commode. Patient buttocks wounds cleaned and dressed with medihoney and mepilex. New wrapping applied to lower extremities. Patient has not ordered any trays for meals today, nor drank any of her protein shake, patient has drank water. Patient has been up in chair since 11am.
--- NOTE | 2022-03-21 15:25 | PM.IMPN1 ---
Progress Note: A&P Assessment and plan (1) Atrial flutter with rapid ventricular response: Problem details: - Rate controlled, no acute cardiovascular issues currently - Eliquis for prophylaxis - on admission, patient placed on a diltiazem GTT - transitioned well to oral metoprolol and digoxin (off of diltiazem gtt 03/04) - discussed case with Dr. Medina of Cardiology on 03/06: Patient remains hemodynamically stable and rate controlled at this time, outpatient cardiology follow-up is appropriate to discuss cardioversion (no need for urgent transfer to tertiary care facility) - TTE obtained 03/03 Final Impressions: 1. Technically very limited exam. 2. Normal LV size, normal global systolic function with an estimated EF of 60 - 65%. 3. Enlarged RV w/ reduced function, incompletely visualized. 4. Moderately enlarged left atrium. 5. No hemodynamically significant valve disease detected. Status: Acute Assessment and Plan: Stable. Continue current regimen. (2) Fall: Problem details: - secondary to weakness and deconditioning - on the ground for 3 days prior to admission Status: Acute (3) Incontinence associated dermatitis: Problem details: - continue williamson and prn loperamide for loose stools (c. diff negative) - continue wound care as per surgery/Wound consult recommendations Status: Acute Assessment and Plan: May benefit from discussion with wound care or Dr. Rice to see if she needs a follow up visit here in the hospital since she has been here for an extended length of time and to have them give recommendations on if discontinuing williamson at this point would compromise wound healing at their current stage. (4) Stage III pressure ulcer of buttock: Problem details: stage III right buttock pressure ulcer. She also has a stage II left buttock pressure ulcer. Alternating pressure mattress in place. Status: Acute Assessment and Plan: Continue with current interventions. (5) Pressure ulcer of buttock: Problem details: - General surgery, I&D in OR 03/04. Dr. Rice signed off 03/05 - Zosyn initiated on admission, discontinued on 03/06 Status: Acute (6) Lymphedema associated with obesity: Status: Acute Assessment and Plan: Continue lymphedema wraps. 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 Status: Acute Assessment and Plan: Started progesterone therapy at 10 mg today. (8) Self neglect: Problem details: Certain level of poor judgment in regard to self cares and self awareness which allowed her to progress to her current state. Did not think to call for help when she was on the floor for several days when she 1st presented. Status: Acute (9) Weakness generalized: Problem details: - PT and OT following, fall risk. Requiring assistance with ADLs - Will need bariatric equipment - TCU placement still pending Status: Acute Assessment and Plan: She is too weak to live alone. Warrants 24 hour long-term cares. (10) Hematuria: Problem details: Possibly secondary to over distended bladder upon presentation combined with anticoagulation with Eliquis for atrial flutter. Renal ultrasound 03/04/2022 was unremarkable. Hemoglobin stable. UA repeated shows elevated urine wbc's, UC - no bacteria, +some yeast. Will need outpatient urology consultation. Status: Acute (11) Vaginal bleeding: Problem details: EUA, EMB and Pap smear 03/12/2022. Thankful for the support of our OBGYN partners - please see their final consult note from 03/19/2022. Pap and pathology come back on 03/19/2022 as inconclusive. - 03/19 Dr. Wagner recommend starting her on Provera 10mg QD for endometrial protection, until such time that we can safely pursue other surgical options which include, D&C/hysterectomy. - Progesterone started 03/21 Status: Acute (12) Acute respiratory failure with hypercapnia: Problem details: Nocturnal, suggestive of obstructive sleep apnea. Current BiPAP settings of 18 cm H20 iPap/10 cm H20 ePap, helps improve her arterial blood gases substantially. Status: Acute Assessment and Plan: Continue with BiPAP at at bedtime. Meets criteria for ongoing use beyond hospitalization such as in the longterm. Plan 72 y/o female with multiple medical issues that arose during this hospitalization for fall and generalized weakness. These acute medical issues have been managed and are now stable. She has been working with therapy, but continues to require significant assistance for ADLs and is not safe to go home. Needs SNF for rehab, but it remains a challenge to find a longterm that will accept her. No safe discharge option at this time. Continue supportive efforts. Time Spent With Patient Total time spent: 30 minutes Subjective Time Seen by Provider: 14:45 Date Seen: 03/21/22 Interval history: Emily is known to me from about a week ago when I was on service. Since I last saw her she had an endometrial biopsy which showed atypia, she was started on progesterone for vaginal bleeding, and it is recommended that she have a hysterectomy at some point in the future. She has taken 1 dose of progesterone so far. Emily tells me that she thinks about these issues as well as which she perceives is lack of progress in therapy. She notes a decrease in appetite over the past week which she believes is secondary to being bored with the menu. She has been using CPAP at night and notices a big difference in daytime alertness. She says she wasn't aware it was an issue, but definitely notices a difference now. Imodium working for diarrhea, but then she feels constipated the next day with a hard stool. Exam Narrative: Exam Narrative: General: No acute distress. Awake, alert, oriented. Sitting in a recliner chair watching TV with her legs elevated. No pallor. No jaundice. Cardiovascular: Regular rate and rhythm. No murmurs, gallops, or rubs. Respiratory: Clear to auscultation bilaterally. No wheezes or crackles. Abdomen: Bowel sounds present. Soft, nondistended, nontender. Extremities: Lymphedema of both lower extremities wraps up to knees bilaterally. Const: Vital Signs, click to edit/add: Vital Signs - 24 hr 03/20/22 19:40 03/20/22 22:57 03/20/22 23:19 Temperature 98.8 F 98.4 F Pulse Rate Pulse Rate [Pulse Oximeter] 82 67 67 Respiratory Rate 16 16 16 Blood Pressure [Le ft Arm] 154/79 H 133/77 Pulse Oximetry 98 93 Oxygen Delivery Me thod Room Air Room Air Fraction of Inspir ed Oxygen 03/20/22 23:19 03/21/22 02:43 03/21/22 07:00 Temperature 98.4 F 97.6 F Pulse Rate Pulse Rate [Pulse Oximeter] 70 65 Respiratory Rate 16 16 16 Blood Pressure [Le ft Arm] 132/76 153/95 H Pulse Oximetry 93 94 95 Oxygen Delivery Me thod Room Air Room Air BiPAP Room Air Fraction of Inspir ed Oxygen 21 03/21/22 07:00 03/21/22 07:00 03/21/22 09:08 Temperature Pulse Rate 65 Pulse Rate [Pulse Oximeter] 65 Respiratory Rate 16 16 Blood Pressure [Le ft Arm] Pulse Oximetry 95 Oxygen Delivery Me thod Room Air Fraction of Inspir ed Oxygen 03/21/22 11:00 Temperature 97.9 F Pulse Rate Pulse Rate [Pulse Oximeter] 65 Respiratory Rate 20 Blood Pressure [Le ft Arm] 159/86 H Pulse Oximetry 92 Oxygen Delivery Me thod Room Air Fraction of Inspir ed Oxygen Documenting provider has reviewed patient's vital signs: yes
--- NOTE | 2022-03-21 22:16 | PC.NURSE ---
Shift [id number]- Patient denies pain throughout shift. She eats 90% of pizza, cake and soda left at bedside. She declines to get up to chair this evening. She is turned and repositioned with pillows for offloading. Bipap applied for sleep. Ghosh patent and draining.
[2022-03-22] VITALS (8 sets, daily range): BP systolic 108–155; BP diastolic 79–96; PULSE 69–85; RESP 16–20; TEMP 36.6–36.8; O2SAT 90–96
[2022-03-22] MEDS: SERTRALINE 50 MG TABLET 25 MG PO (10:36)
[2022-03-22] MEDS: METOPROLOL TARTRATE 100 MG TABLET PO ×2 (10:37→21:04)
[2022-03-22] MEDS: APIXABAN 5 MG TABLET PO ×2 (10:37→21:04)
[2022-03-22] MEDS: LACTOBACILLUS ACIDOPHILUS 1 TABLET 1 TAB PO ×2 (10:37→18:02)
[2022-03-22] MEDS: DIGOXIN 250 MCG TABLET PO (10:38)
[2022-03-22] MEDS: MEDROXYPROGESTERONE 5 MG TABLET 10 MG PO (10:39)
[2022-03-22] MEDS: NYSTATIN POWDER 1 APPLIC TOPICAL ×2 (11:14→21:04)
--- NOTE | 2022-03-22 15:33 | P.IMPN_ITS ---
Progress Note: A&P Assessment and plan (1) Atrial flutter with rapid ventricular response: Problem details: - Rate controlled on digoxin and metoprolol, no acute cardiovascular issues currently - Eliquis for prophylaxis - on admission, patient placed on a diltiazem GTT - transitioned well to oral metoprolol and digoxin (off of diltiazem gtt 03/04) - discussed case with Dr. Medina of Cardiology on 03/06: Patient remains hemodynamically stable and rate controlled at this time, outpatient cardiology follow-up is appropriate to discuss cardioversion (no need for urgent transfer to tertiary care facility) - TTE obtained 03/03 Final Impressions: 1. Technically very limited exam. 2. Normal LV size, normal global systolic function with an estimated EF of 60 - 65%. 3. Enlarged RV w/ reduced function, incompletely visualized. 4. Moderately enlarged left atrium. 5. No hemodynamically significant valve disease detected. Status: Acute Assessment and Plan: Stable. Continue current regimen. Digoxin was a new medicine 03/04/22. Check digoxin level. (2) Fall: Problem details: - secondary to weakness and deconditioning - on the ground for 3 days prior to admission Status: Acute (3) Incontinence associated dermatitis: Problem details: - continue williamson and prn loperamide for loose stools (c. diff negative) - continue wound care as per surgery/Wound consult recommendations Status: Acute Assessment and Plan: Tomorrow, ask Dr. Rice to see in follow up and give recommendations on when to d/c williamson so as not to compromise wound healing. (4) Stage III pressure ulcer of buttock: Problem details: stage III right buttock pressure ulcer. She also has a stage II left buttock pressure ulcer. Alternating pressure mattress in place. Status: Acute Assessment and Plan: Continue with current interventions. (5) Pressure ulcer of buttock: Problem details: - General surgery, I&D in OR 03/04. Dr. Rice signed off 03/05 - Zosyn initiated on admission, discontinued on 03/06 Status: Acute Assessment and Plan: As above in #3 (6) Lymphedema associated with obesity: Status: Acute Assessment and Plan: Continue lymphedema wraps. 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 Status: Acute (8) Self neglect: Problem details: Certain level of poor judgment in regard to self cares and self awareness which allowed her to progress to her current state. Did not think to call for help when she was on the floor for several days when she 1st presented. Status: Acute (9) Weakness generalized: Problem details: - PT and OT following, fall risk. Requiring assistance with ADLs - Will need bariatric equipment - TCU placement still pending Status: Acute Assessment and Plan: She remains too weak to live alone. Warrants 24 hour intermediate cares. (10) Hematuria: Problem details: Possibly secondary to over distended bladder upon presentation combined with anticoagulation with Eliquis for atrial flutter. Renal ultrasound 03/04/2022 was unremarkable. Hemoglobin stable. UA repeated shows elevated urine wbc's, UC - no bacteria, +some yeast. Will need outpatient urology consultation. Status: Acute (11) Vaginal bleeding: Problem details: EUA, EMB and Pap smear 03/12/2022. Thankful for the support of our OBGYN partner s - please see their final consult note from 03/19/2022. Pap and pathology come back on 03/19/2022 as inconclusive. - 03/19 Dr. Wagner recommend starting her on Provera 10mg QD for endometrial protection, until such time that we can safely pursue other surgical options which include, D&C/hysterectomy. - Progesterone started 03/21/22 Status: Acute (12) Acute respiratory failure with hypercapnia: Problem details: Nocturnal, suggestive of obstructive sleep apnea. Current BiPAP settings of 18 cm H20 iPap/10 cm H20 ePap, helps improve her arterial blood gases substantially. Status: Acute Assessment and Plan: Continue with BiPAP at at bedtime. Meets criteria for ongoing use beyond hospitalization such as in the fdc. Plan 72 y/o female with multiple medical issues that arose during this hospitalization for fall and generalized weakness. Acute medical issues have been managed and are stable. Decrease VS checks to BID. Obtain digoxin level. I have discontinued prn pain medications she has not used in over a week and have d/c IV. She is on only oral medications at this time. She has been working with therapy, but continues to require significant assistance for ADLs and is not safe to go home. Needs SNF for rehab, but it remains a challenge to find a fdc that will accept her. No safe discharge option at this time. Continue supportive efforts. Time Spent With Patient Total time spent: 30 minutes Subjective Time Seen by Provider: 15:33 Date Seen: 03/22/22 Interval history: Complains of frequent blood pressure checks. Vitals are currently being taken 6x a day. Otherwise feels well and says she is feeling more upbeat than yesterday. Exam Narrative: Exam Narrative: General: No acute distress. Awake, alert, oriented. Lying in bed on her back. Affect bright. Cardiovascular: Regular rate and rhythm. No murmurs, gallops, or rubs. Const: Vital Signs, click to edit/add: Vital Signs - 24 hr 03/21/22 15:45 03/21/22 15:45 03/21/22 19:05 Temperature 98.1 F 98.6 F Pulse Rate Pulse Rate [Pulse Oximeter] 68 84 Respiratory Rate 18 16 Blood Pressure [Le ft Arm] 145/83 H Blood Pressure [Ri ght Arm] 156/89 H Pulse Oximetry 93 93 90 Oxygen Delivery Me thod Room Air Room Air Room Air Oxygen Flow Rate Fraction of Inspir ed Oxygen 03/21/22 22:51 03/21/22 23:09 03/21/22 23:09 Temperature 98.6 F Pulse Rate Pulse Rate [Pulse Oximeter] 69 69 Respiratory Rate 16 16 16 Blood Pressure [Le ft Arm] 150/85 H Blood Pressure [Ri ght Arm] Pulse Oximetry 93 93 Oxygen Delivery Me thod Room Air BiPAP Room Air BiPAP Oxygen Flow Rate 0 Fraction of Inspir ed Oxygen 03/22/22 02:20 03/22/22 07:00 03/22/22 10:38 Temperature 98 F Pulse Rate 75 Pulse Rate [Pulse Oximeter] 69 Respiratory Rate 16 Blood Pressure [Le ft Arm] 108/79 Blood Pressure [Ri ght Arm] Pulse Oximetry 96 93 Oxygen Delivery Me thod BiPAP Room Air Oxygen Flow Rate 0 Fraction of Inspir ed Oxygen 03/22/22 11:03 03/22/22 11:06 03/22/22 07:00 Temperature 98 F Pulse Rate Pulse Rate [Pulse Oximeter] 78 Respiratory Rate 20 20 Blood Pressure [Le ft Arm] Blood Pressure [Ri ght Arm] Pulse Oximetry 93 93 Oxygen Delivery Me thod Room Air Room Air Oxygen Flow Rate 0 Fraction of Inspir ed Oxygen 21 03/22/22 07:00 03/22/22 11:00 Temperature 97.9 F Pulse Rate Pulse Rate [Pulse Oximeter] 78 71 Respiratory Rate 20 20 Blood Pressure [Le ft Arm] Blood Pressure [Ri ght Arm] 146/85 H Pulse Oximetry 93 Oxygen Delivery Me thod Room Air Oxygen Flow Rate 0 Fraction of Inspir ed Oxygen Documenting provider has reviewed patient's vital signs: yes
--- NOTE | 2022-03-22 17:52 | PC.NURSE ---
Patient up in the chair with assist of 3/Ceiling lift. Sat on commode and had a medium formed stool. Dressing change performed to coccyx wound - [facility] and mepilex applied.
--- NOTE | 2022-03-23 06:46 | PC.NURSE ---
Shift note: Pt's condition is stable. BIPAP on for the night to keep O2>90%. Pt has been sleeping very well tonight. Denied any pain, SOB, Cough and N/V. Refused t/r. Pt vitally stable.
[2022-03-23 07:34] LABS: Digoxin* 0.7 ng/mL (0.8-2.0)
[2022-03-23 07:43] VITALS: BP 143/83; PULSE 68; RESP 16; TEMP 36.6; O2SAT 96
[2022-03-23 07:49] VITALS: O2SAT 96
[2022-03-23 09:41] VITALS: PULSE 68
[2022-03-23] MEDS: APIXABAN 5 MG TABLET PO ×2 (09:41→21:26)
[2022-03-23] MEDS: SERTRALINE 50 MG TABLET 25 MG PO (09:41)
[2022-03-23] MEDS: DIGOXIN 250 MCG TABLET PO (09:41)
[2022-03-23] MEDS: LACTOBACILLUS ACIDOPHILUS 1 TABLET 1 TAB PO ×3 (09:42→19:05)
[2022-03-23] MEDS: NYSTATIN POWDER 1 APPLIC TOPICAL ×2 (09:42→21:26)
[2022-03-23] MEDS: MEDROXYPROGESTERONE 5 MG TABLET 10 MG PO (09:42)
[2022-03-23] MEDS: METOPROLOL TARTRATE 100 MG TABLET PO ×2 (09:42→21:26)
--- NOTE | 2022-03-23 11:36 | PC.NURSE ---
Patient was turned in bed with assist of 2. Alie cares provided. Also washed hair with shower cap, washed and lotioned lower extremities. MD wants Lymphedema wraps to knees to continue.
--- NOTE | 2022-03-23 11:51 | PM.IMPN1 ---
Progress Note: A&P Assessment and plan (1) Venous insufficiency (chronic) (peripheral): Status: Acute (2) Lymphedema: Status: Acute (3) Stage III pressure ulcer of buttock: Problem details: stage III right buttock pressure ulcer. She also has a stage II left buttock pressure ulcer. Alternating pressure mattress in place. Status: Acute (4) Incontinence associated dermatitis: Problem details: - continue williamson and prn loperamide for loose stools (c. diff negative) - continue wound care as per surgery/Wound consult recommendations Status: Acute (5) Pressure ulcer of buttock: Problem details: - General surgery, I&D in OR 03/04. Dr. Rice signed off 03/05 - Zosyn initiated on admission, discontinued on 03/06 Status: Acute (6) Lymphedema associated with obesity: Status: Acute (7) Obesity: Problem details: This is likely the main race car driver of her postmenopausal bleeding, given that estrogen is also produced in fat cells and she has unopposed estrogen without added progesterone. Status: Acute (8) Vaginal bleeding: Problem details: EUA, EMB and Pap smear 03/12/2022. Thankful for the support of our OBGYN partners - please see their final consult note from 03/19/2022. Pap and pathology come back on 03/19/2022 as inconclusive. - 03/19 Dr. Wagner recommend starting her on Provera 10mg QD for endometrial protection, until such time that we can safely pursue other surgical options which include, D&C/hysterectomy. - Progesterone started 03/21/22 Status: Acute (9) Atrial flutter with rapid ventricular response: Problem details: - Rate controlled on digoxin and metoprolol, no acute cardiovascular issues currently - Eliquis for prophylaxis - on admission, patient placed on a diltiazem GTT - transitioned well to oral metoprolol and digoxin (off of diltiazem gtt 03/04) - discussed case with Dr. Medina of Cardiology on 03/06: Patient remains hemodynamically stable and rate controlled at this time, outpatient cardiology follow-up is appropriate to discuss cardioversion (no need for urgent transfer to tertiary care facility) - TTE obtained 03/03 Final Impressions: 1. Technically very limited exam. 2. Normal LV size, normal global systolic function with an estimated EF of 60 - 65%. 3. Enlarged RV w/ reduced function, incompletely visualized. 4. Moderately enlarged left atrium. 5. No hemodynamically significant valve disease detected. Status: Acute (10) Weakness generalized: Problem details: - PT and OT following, fall risk. Requiring assistance with ADLs - Will need bariatric equipment - TCU placement still pending Status: Acute Plan appreciate therapy team, ambar ZHANG in finding placement Time Spent With Patient Total time spent: 25 Subjective Date Seen: 03/23/22 Interval history: patient new to [place] and seeing for first time no acute events overnight Discussed with RN she continues to need mostly 2 assist on a few occasions upto 3 assist no nausea, abdominal pain, chest pain Exam Narrative: Exam Narrative: Gen: obese female NAD HEENT: NCAT EOMI MMM CV RRR s1 s2 LCTAB Abd: Soft, nt, nd ; williamson in place Const: Vital Signs, click to edit/add: Vital Signs - 24 hr 03/22/22 15:00 03/22/22 15:00 03/22/22 23:34 Temperature 98.3 F Pulse Rate Pulse Rate [Pulse Oximeter] 71 85 Respiratory Rate 20 20 Blood Pressure [Ri ght Arm] 155/96 H Pulse Oximetry 93 90 Oxygen Delivery Me thod Room Air Room Air Oxygen Flow Rate 0 Fraction of Inspir ed Oxygen 21 03/22/22 23:00 03/22/22 23:00 03/23/22 07:43 Temperature 97.8 F Pulse Rate Pulse Rate [Pulse Oximeter] 68 Respiratory Rate 20 20 16 Blood Pressure [Ri ght Arm] 143/83 H Pulse Oximetry 90 96 Oxygen Delivery Me thod Room Air Room Air Oxygen Flow Rate 0 Fraction of Inspir ed Oxygen 03/23/22 07:49 03/23/22 09:29 03/23/22 09:41 Temperature Pulse Rate 68 Pulse Rate [Pulse Oximeter] Respiratory Rate Blood Pressure [Ri ght Arm] Pulse Oximetry 96 Oxygen Delivery Me thod Room Air Oxygen Flow Rate Fraction of Inspir ed Oxygen 0.21 Labs Labs: Laboratory Results - last 24 hr 03/23/22 06:28 Digoxin 0.7 L
--- NOTE | 2022-03-23 14:29 | PC.NURSE ---
End of shift note: Patient has been up in the chair X1 today. Was hoyered over to chair with assist of 2. PT came in and stood patient with EZ stand for a few seconds. Patient stated that it hurt her knee and she was scared but that she was proud of herself for trying. Patient was willing but hesitant to try the EZ stand again. With some encouragement, patient was able to transfer from chair to commode to chair and to bed with the EZ stand and 2 staff members. Patient overall tolerated well. Bariatric EZ stand would be useful if there was one available but at this time there is not. Patient denies pain unless having to move. Denies need for pain medications. Denies nausea. Typically does not eat much during the day. Did have 1 chocolate protein drink and a piece of chocolate cake. Plans to order a large dinner meal. Takes pills whole with water. Is alert and oriented X3. Leg wraps were taken off and MD requested that we continue to change them every other day. Wound on bottom was changed twice today and iodosorb paste and mepilex was placed over wound. Dr. Rice saw wound today and plans to come on Mondays and to assess. Patient was given a bed bath today with a shampoo cap hair wash and linen change. Had 1 large, formed, hard, continent BM on the commode. Urinary catheter remains in place for wound healing. Encouraging to drink fluids. No PIV in place. financial services associate continues to look for placement. Vital signs checked BID and were within normal limits this morning. Lung sounds clear, bowel sounds active.
--- NOTE | 2022-03-23 14:43 | P.GSPN_ITS ---
Subjective Subjective Date Seen: 03/23/22 Interval history: Patient is doing well from a wound perspective. She denies any pain or discomfort to the area. She does report having difficulty telling when she is going to have a bowel movement. She will feel a sensation, but is unable to t ell if it is gas or stool. Denies any diarrhea or constipation. Has been trialing a protein rich diet. Overall feels like her wounds are no longer an issue and she is continuing to gain in strength. Exam Narrative: Exam Narrative: General: Alert and oriented, no acute distress. Lying comfortably in bed. : Right buttock wound has decreased in size and depth. Wound bed with healthy granulation tissue. No surrounding erythema or induration. No significant exudate requiring debridement. Left buttock wound is almost completely healed with some new epithelialization over the area. Extremities: +1 swelling, bilateral lymphedema. No open sores or wounds. Const: Vital Signs, click to edit/add: Vital Signs - 24 hr 03/22/22 15:00 03/22/22 15:00 03/22/22 23:34 Temperature 98.3 F Pulse Rate Pulse Rate [Pulse Oximeter] 71 85 Respiratory Rate 20 20 Blood Pressure [Ri ght Arm] 155/96 H Pulse Oximetry 93 90 Oxygen Delivery Me thod Room Air Room Air Oxygen Flow Rate 0 Fraction of Inspir ed Oxygen 21 03/22/22 23:00 03/22/22 23:00 03/23/22 07:43 Temperature 97.8 F Pulse Rate Pulse Rate [Pulse Oximeter] 68 Respiratory Rate 20 20 16 Blood Pressure [Ri ght Arm] 143/83 H Pulse Oximetry 90 96 Oxygen Delivery Me thod Room Air Room Air Oxygen Flow Rate 0 Fraction of Inspir ed Oxygen 03/23/22 07:49 03/23/22 09:29 03/23/22 09:41 Temperature Pulse Rate 68 Pulse Rate [Pulse Oximeter] Respiratory Rate Blood Pressure [Ri ght Arm] Pulse Oximetry 96 Oxygen Delivery Me thod Room Air Oxygen Flow Rate Fraction of Inspir ed Oxygen 0.21 Progress Note: A&P Assessment and plan (1) Stage III pressure ulcer of buttock: Problem details: stage III right buttock pressure ulcer. She also has a stage II left buttock pressure ulcer. Alternating pressure mattress in place. Status: Acute Assessment and Plan: Wound check performed today while patient continues with her prolonged inpatient stay. The left buttock pressure ulcer has new epithelialization and has healed. Right buttock pressure ulcer demonstrates a significant decrease in size and depth. No concern for infection. No debridement performed today. Healthy granulation tissue within wound bed. -continue to apply Iodosorb to the wound bed and apply an outer Mepilex dressing -change dressing daily, or more often as needed Will check on the wound again on , if patient continues to be inpatient.
[2022-03-23 15:00] VITALS: PULSE 90; RESP 16; RESP 18; O2SAT 100
[2022-03-23 23:00] VITALS: RESP 18; O2SAT 92
--- NOTE | 2022-03-23 23:26 | PC.NURSE ---
Addendum entered by Yolanda Calderon RN 03/24/22 00:34: Bipap at HS Addendum entered by Yolanda Calderon RN 03/24/22 00:34: Refused to move to chair for supper stating she had had enough for the day. Pt ate supper in bed but later was cooperative using EZ stand with assist x2 to move to BSC and participate in HS cares. Ghosh remains in place and she has been continent of BM. Small amount of bloody discharge noted on disposable pad. Dressing to right buttock changed d/t soiling during toileting. Pt very reluctant for activty and needs frequent encouragement. Makes statements that she will increase activity tomorrow or she isn't ready. With encouragement she is reluctantly cooperative. At HS pt stated she is resistant to activity d/t left knee pain with standing. Offered PRN Tylenol and pt declined at this time. Decreased urine output, 250cc this shift. Pt encouraged to increase fluid intake and she agreed. Original Note: Pt refused removal of Ghosh this afternoon. She is able to move to BSC or chair with EZ stand and assist x2 but needs quite a bit of encouragement and reinforcement for activity.
[2022-03-24] MEDS: ACETAMINOPHEN 325 MG TABLET 975 MG PO ×2 (06:00→14:01)
--- NOTE | 2022-03-24 06:33 | PC.NURSE ---
[id number]. Patient tolerating BiPAP during noc. Encouraged fluids d/t low urine output. Patient verbalizes understanding but requires frequent reminders to comply. Tylenol x1 for headache.
[2022-03-24 09:12] VITALS: BP 147/75; PULSE 72; RESP 18; TEMP 36.8; O2SAT 91
[2022-03-24] MEDS: MEDROXYPROGESTERONE 5 MG TABLET 10 MG PO (09:14)
[2022-03-24 09:15] VITALS: PULSE 72
[2022-03-24] MEDS: APIXABAN 5 MG TABLET PO ×2 (09:15→20:57)
[2022-03-24] MEDS: NYSTATIN POWDER 1 APPLIC TOPICAL ×2 (09:15→20:57)
[2022-03-24] MEDS: DIGOXIN 250 MCG TABLET PO (09:15)
[2022-03-24] MEDS: METOPROLOL TARTRATE 100 MG TABLET PO ×2 (09:15→20:57)
[2022-03-24] MEDS: LACTOBACILLUS ACIDOPHILUS 1 TABLET 1 TAB PO ×3 (09:15→18:21)
[2022-03-24] MEDS: SERTRALINE 50 MG TABLET 25 MG PO (09:16)
--- NOTE | 2022-03-24 11:38 | PM.IMPN1 ---
Progress Note: A&P Assessment and plan (1) Acute respiratory failure with hypercapnia: Problem details: Nocturnal, suggestive of obstructive sleep apnea. Current BiPAP settings of 18 cm H20 iPap/10 cm H20 ePap Following gases intermittently Status: Acute (2) Vaginal bleeding: Problem details: EUA, EMB and Pap smear 03/12/2022. Thankful for the support of our OBGYN partners - please see their final consult note from 03/19/2022. Pap and pathology come back on 03/19/2022 as inconclusive. - 03/19 Dr. Wagner recommend starting her on Provera 10mg QD for endometrial protection, until such time that we can safely pursue other surgical options which include, D&C/hysterectomy. - Progesterone started 03/21/22 Status: Acute (3) Incontinence associated dermatitis: Problem details: - continue williamson and prn loperamide for loose stools (c. diff negative) - continue wound care as per surgery/Wound consult recommendations Status: Acute (4) Pressure ulcer of buttock: Problem details: - General surgery, I&D in OR 03/04. Dr. Rice will round 2x/week while patient is here - Zosyn initiated on admission, discontinued on 03/06 Status: Acute (5) Lymphedema associated with obesity: Problem details: will attempt to get lymphedema pumps from a third constitution party vendor if possible. accurate bed weights needed. asked dietican to narrow and increase strictness of diet choices. I rounded (03/24/22) and saw carrot cake, coke, lays chips on the bedside table. Protein goals, vegetables, fruits acceptable. no refined carbs. Status: Acute (6) Obesity: Problem details: This is likely the main local bulk driver of her postmenopausal bleeding, given that estrogen is also produced in adipose cells and she has unopposed estrogen without added progesterone. provera started Status: Acute (7) Self neglect: Problem details: Certain level of poor judgment in regard to self cares and self awareness which allowed her to progress to her current state. Did not think to call for help when she was on the floor for several days when she 1st presented. Status: Acute (8) Atrial flutter with rapid ventricular response: Problem details: - Rate controlled on digoxin and metoprolol, no acute cardiovascular issues currently - Eliquis for prophylaxis - on admission, patient placed on a diltiazem GTT - transitioned well to oral metoprolol and digoxin (off of diltiazem gtt 03/04) - discussed case with Dr. Medina of Cardiology on 03/06: Patient remains hemodynamically stable and rate controlled at this time, outpatient cardiology follow-up is appropriate to discuss cardioversion (no need for urgent transfer to tertiary care facility) - TTE obtained 03/03 Final Impressions: 1. Technically very limited exam. 2. Normal LV size, normal global systolic function with an estimated EF of 60 - 65%. 3. Enlarged RV w/ reduced function, incompletely visualized. 4. Moderately enlarged left atrium. 5. No hemodynamically significant valve disease detected. Status: Acute (9) Adjustment disorder: Problem details: started zoloft 25mg on 03/13, increased to 50mg 03/24. Status: Acute Subjective Date Seen: 03/24/22 Interval history: Daily Progress Note - Hospital Medicine #: [id number] CC: generalized weakness, morbid obesity, lymphedema, pressure ulcers, AFlutter OVERNIGHT UPDATES FROM STAFF & MED, LAB, IMAGING UPDATES Small a significant gains made in her mobility over the last 48 hours. Patient now can become upright with the EZ stand. She can pivot and sit on the bedside commode. All other transfers have been by sling. Patient feels her spirits are about the same as they have been. Today's visit rodriguez roughly the 3 week point in her hospitalization. Multi disciplinary team meeting: -nutrition to become more involved, stricter about diet choices. Protein goals to be met every day, vegetables and high-protein, high values foods only. No refined sugar. -PT and OT rounding with bedside instruction sheets available for patients continued rehab -strict daily weights, calibration of the bed needed today. Be supine and without extra weight on the bed during waking. -DME request to our 3rd constitution party vendor for lymphedema pumps -trial of Lasix and spironolactone to help alleviate some of her edema -increasing her zoloft from 25-50mg daily Objective: Vitals: see above Lungs: Clear. Cardiac: S1S2. Pitting edema, 2+ bilaterally. Chronic stasis. Williamson catheter in place. Disposition/Potential discharge - When her rehab potential is moderate to good, needing 1-2 assist we can keep pursuing transfer to rehab. Total time is 35 minutes with greater than 50% spent in counseling and coordination of care. Exam Const: Vital Signs, click to edit/add: Vital Signs - 24 hr 03/23/22 15:00 03/23/22 15:00 03/23/22 23:00 Temperature Pulse Rate Pulse Rate [Pulse Oximeter] 90 Respiratory Rate 16 18 18 Blood Pressure [Le ft Arm] Pulse Oximetry 100 92 Oxygen Delivery Me thod Room Air BiPAP Oxygen Flow Rate 0 Fraction of Inspir ed Oxygen 03/24/22 09:12 03/24/22 09:15 03/24/22 09:12 Temperature Pulse Rate 72 Pulse Rate [Pulse Oximeter] 72 Respiratory Rate 18 Blood Pressure [Le ft Arm] Pulse Oximetry Oxygen Delivery Me thod Oxygen Flow Rate Fraction of Inspir ed Oxygen 0.21 03/24/22 09:12 03/24/22 09:12 Temperature 98.2 F Pulse Rate Pulse Rate [Pulse Oximeter] 72 Respiratory Rate 18 Blood Pressure [Le ft Arm] 147/75 H Pulse Oximetry 91 91 Oxygen Delivery Me thod Room Air Room Air Oxygen Flow Rate Fraction of Inspir ed Oxygen
--- NOTE | 2022-03-24 13:48 | PC.NURSE ---
Pt calm and cooperative during shift today. Pt was up to chair and commode with Ez-Stand. Pt had no pain through out shift. Pt did not order meals during shift but had a piece of carrot cake as a snack.
[2022-03-24] MEDS: FUROSEMIDE 40 MG TABLET PO (14:02)
[2022-03-24] MEDS: SPIRONOLACTONE 25 MG TABLET PO (14:02)
--- NOTE | 2022-03-24 14:16 | NUTR.NU ---
Nutrition Follow-up: RDN with MD consult for weight loss goals/menu suggestions. RDN visited with patient whom reported not eating 3 meals per day, however she has been ordering cake for dinner to have for breakfast the following day. Her meals intakes are mainly 100%, however she typically only consumes 1-2 meals per day. She recognizes that she needs to lose weight and was in agreement to start choosing healthier food options. RDN provided patient with a facility menu that had unhealthier options crossed out to encourage patient to choose healthier and higher protein food choices. Patient was very grateful for the new menu and education. She mentioned that she is encouraged to be more mindful of food options and to lose weight so she can do more in therapy and eventually return home. Patient was also in agreement to change diet from Regular to a Diabetic 1200 kcal diet with a calorie count. Patient is currently receiving [employer] BID which provides 340 kcals and 52 grams of protein to help meet estimated protein needs for healing and high-protein snack once daily. Patient agreed to continue receiving [employer] supplement BID, but to discontinue the high-protein snack. Patient mentioned that some days she feels like one supplement for breakfast is enough due to not being a big breakfast eater. RDN will discontinue snack once daily. RDN informed charge nurse of diet, supplement, and menu - staff is to use special menu to order patient's meals as well. Staff in culinary services has been informed and was provided a copy of menu to help patient/staff order meals. RDN informed patient that is she has any questions or concerns at all, to let staff know and RDN can follow-up with her. Patient is in agreement to plan and had no questions/concerns at this time.
[2022-03-24 15:00] VITALS: PULSE 72; RESP 18; O2SAT 93
--- NOTE | 2022-03-24 15:12 | PC.NURSE ---
Daily Weight Note: Patient's weight obtained via zeroed bedscale with Skinguard mattress, 1 fitted sheet, 2 linen chux, 2 disposable chux and [address] (call light, bed remote and extra covers removed prior to zeroing). Patient wearing hospital gown; weight 376.3 pounds.
--- NOTE | 2022-03-24 22:53 | PC.NURSE ---
End of Shift: Patient pleasant and cooperative. Afebrile. Denies pain. Up to chair with 3 assist and EZ stand and returned to bed with ceiling lift. Tolerating regular diet with no nausea. BiPap on at HS. Ghosh patent with 2100 mL out this shift.
[2022-03-24 23:00] VITALS: PULSE 72; RESP 18
[2022-03-25] VITALS (9 sets, daily range): BP systolic 146–155; BP diastolic 74–111; PULSE 68–104; RESP 14–20; TEMP 36.6–36.7; O2SAT 90–94
--- NOTE | 2022-03-25 06:07 | PC.NURSE ---
Status [id number] Alert and oriented. Pleasant and cooperative. Denies pain. Wearing bipap overnight. Indwelling catheter patent. Encouraging repositioning but patient refused. Pt observed resting well throughout night.
[2022-03-25 06:48] LABS: HCO3 VBG 34 mmol/L (21-28); Ionized Calcium* 1.11 mmol/L (1.11-1.30); PCO2 VBG 50 mmHG (40-50); PO2 VBG 57.5 mmHG (25-47); pH VBG 7.442 (7.32-7.43)
[2022-03-25 06:50] LABS: Hematocrit 38.7 % (33.0-51.0); Mean Corpuscular HGB Conc 31 gm/dL (32-36); Mean Corpuscular Hemoglobin 27 pg (26-34); Mean Corpuscular Volume 86 fL (80-100); Platelet Count* 155 K/uL (140-440); Red Blood Count 4.49 m/uL (4.00-5.20); White Blood Count* 3.12 K/uL (4.50-11.00)
[2022-03-25 06:57] LABS: Slide Review Reflex No
[2022-03-25 07:07] LABS: Albumin* 2.6 g/dL (3.3-5.0); Chloride* 105 mmol/L (96-114); Sodium* 140 mmol/L (135-149)
[2022-03-25 07:08] LABS: Potassium* 3.5 mmol/L (3.6-5.1)
[2022-03-25 07:09] LABS: Iron* 74 ug/dL (37-170)
[2022-03-25 07:10] LABS: Cholesterol* 118 mg/dL (90-199); Creatinine* 0.6 mg/dL (0.5-1.5); Est. Creatinine Clearance* 43.91; Estimated Glomerular Filt Rate 95 ml/min
[2022-03-25 07:11] LABS: Alanine Aminotransferase* 20 U/L (4-35); Alkaline Phosphatase* 51 U/L (40-150); Aspartate Amino Transferase* 19 U/L (12-35); Bilirubin Total* 0.6 mg/dL (0.1-1.5); Blood Urea Nitrogen* 9 mg/dL (7-30); Carbon Dioxide* 32 mmol/L (20-32); Gamma Glutamyl Transpeptidase* 25 U/L (8-55); Glucose* 92 mg/dL (60-115); Triglycerides* 91 mg/dL (40-149); Uric Acid* 5.9 mg/dL (2.2-8.4)
[2022-03-25 07:12] LABS: Calcium* 8.5 mg/dL (8.4-10.6); HDL Cholesterol* 36 mg/dL (>=50); LDL Cholesterol Calculated 64 mg/dL (<100); Magnesium* 1.5 mg/dL (1.5-2.6)
[2022-03-25 07:14] LABS: C Reactive Protein* 1.4 mg/dL (0.5-1.0)
[2022-03-25 07:19] LABS: NT Pro B Type NatriureticPept* 4060 pg/mL; Percent Iron Saturation 28 % (20-50); Total Iron Binding Capacity 263 ug/dL (265-497)
[2022-03-25] MEDS: ACETAMINOPHEN 325 MG TABLET 975 MG PO ×2 (07:59→23:12)
[2022-03-25] MEDS: LACTOBACILLUS ACIDOPHILUS 1 TABLET 1 TAB PO ×3 (08:00→17:33)
[2022-03-25] MEDS: FUROSEMIDE 40 MG TABLET PO (08:00)
[2022-03-25] MEDS: MEDROXYPROGESTERONE 5 MG TABLET 10 MG PO (09:08)
[2022-03-25] MEDS: DIGOXIN 250 MCG TABLET PO (09:09)
[2022-03-25] MEDS: SERTRALINE 50 MG TABLET PO (09:09)
[2022-03-25] MEDS: APIXABAN 5 MG TABLET PO ×2 (09:09→21:02)
[2022-03-25] MEDS: METOPROLOL TARTRATE 100 MG TABLET PO ×2 (09:10→21:02)
[2022-03-25] MEDS: SPIRONOLACTONE 25 MG TABLET PO (09:10)
[2022-03-25] MEDS: NYSTATIN POWDER 1 APPLIC TOPICAL ×2 (09:10→21:03)
[2022-03-25] MEDS: POTASSIUM CHLORIDE 10 MEQ CAPSULE ER 20 MEQ PO ×2 (09:14→17:33)
--- NOTE | 2022-03-25 11:12 | PM.IMPN1 ---
Progress Note: A&P Assessment and plan (1) Weakness generalized: Problem details: - To be clear: this patient does not stand-up without equipment and coaching. She is making slow progress. She does not walk or reliably us the commode for BMs. Long engaging discussion 03/25/22 about her motivation, goal setting, grit and absolute need to try everyday. She agrees and would like to return to independent living. - PT and OT following, fall risk. Requiring assistance with ADLs - Will need bariatric equipment - TCU placement still pending Status: Acute (2) Pressure ulcer of buttock: Problem details: - General surgery, I&D in OR 03/04. Dr. Rice will round 2x/week while patient is here - Zosyn initiated on admission, discontinued on 03/06 Status: Acute (3) Acute respiratory failure with hypercapnia: Problem details: Nocturnal, suggestive of obstructive sleep apnea. Current BiPAP settings of 18 cm H20 iPap/10 cm H20 ePap Following gases intermittently Status: Acute (4) Vaginal bleeding: Problem details: EUA, EMB and Pap smear 03/12/2022. Thankful for the support of our OBGYN partners - please see their final consult note from 03/19/2022. Pap and pathology come back on 03/19/2022 as inconclusive. - 03/19 Dr. Wagner recommend starting her on Provera 10mg QD for endometrial protection, until such time that we can safely pursue other surgical options which include, D&C/hysterectomy. - Progesterone started 03/21/22 Status: Acute (5) Incontinence associated dermatitis: Problem details: - continue williamson and prn loperamide for loose stools (c. diff negative) - continue wound care as per surgery/Wound consult recommendations Status: Acute (6) Lymphedema associated with obesity: Problem details: will attempt to get lymphedema pumps from a third constitution party vendor if possible. accurate bed weights needed. asked dietican to narrow and increase strictness of diet choices. I rounded (03/24/22) and saw carrot cake, coke, lays chips on the bedside table. Protein goals, vegetables, fruits acceptable. no refined carbs. 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 provera started Status: Acute (8) Self neglect: Problem details: Certain level of poor judgment in regard to self cares and self awareness which allowed her to progress to her current state. Did not think to call for help when she was on the floor for several days when she 1st presented. Status: Acute (9) Atrial flutter with rapid ventricular response: Problem details: - Rate controlled on digoxin and metoprolol, no acute cardiovascular issues currently - Eliquis for prophylaxis - on admission, patient placed on a diltiazem GTT - transitioned well to oral metoprolol and digoxin (off of diltiazem gtt 03/04) - discussed case with Dr. Medina of Cardiology on 03/06: Patient remains hemodynamically stable and rate controlled at this time, outpatient cardiology follow-up is appropriate to discuss cardioversion (no need for urgent transfer to tertiary care facility) - TTE obtained 03/03 Final Impressions: 1. Technically very limited exam. 2. Normal LV size, normal global systolic function with an estimated EF of 60 - 65%. 3. Enlarged RV w/ reduced function, incompletely visualized. 4. Moderately enlarged left atrium. 5. No hemodynamically significant valve disease detected. Status: Acute (10) Adjustment disorder: Problem details: started zoloft 25mg on 03/13, increased to 50mg 03/24. Status: Acute Subjective Date Seen: 03/25/22 Interval history: Daily Progress Note - Hospital Medicine Day #: 24 CC: generalized weakness, morbid obesity, lymphedema, pressure ulcers, AFlutter OVERNIGHT UPDATES FROM STAFF & MED, LAB, IMAGING UPDATES Small a significant gains made in her mobility over the last 48 hours. Patient now can become upright with the EZ stand. She can pivot and sit on the bedside commode. All other transfers have been by sling. Patient feels her spirits are about the same as they have been. Today's visit rodriguez roughly the 3 week point in her hospitalization. Multi disciplinary team meeting: -nutrition to become more involved, stricter about diet choices. Protein goals to be met every day, vegetables and high-protein, high values foods only. No refined sugar. -PT and OT rounding with bedside instruction sheets available for patients continued rehab - posting sheets for tips and times. No TV during this work. -strict daily weights. Be supine and without extra weight on the bed during waking. -DME request to our 3rd constitution party vendor for lymphedema pumps -trial of Lasix and spironolactone to help alleviate some of her edema (day 2) -increasing her zoloft from 25-50mg daily Objective: Vitals: see above Lungs: Clear. Cardiac: S1S2. Pitting edema, 2+ bilaterally. Chronic stasis. Williamson catheter in place. Disposition/Potential discharge - When her rehab potential is moderate to good, needing 1-2 assist we can keep pursuing transfer to rehab. Total time is 35 minutes with greater than 50% spent in counseling and coordination of care. Exam Const: Vital Signs, click to edit/add: Vital Signs - 24 hr 03/24/22 15:00 03/24/22 15:00 03/25/22 01:21 Temperature Pulse Rate Pulse Rate [Pulse Oximeter] 72 Respiratory Rate 18 18 Blood Pressure [Le ft Arm] Pulse Oximetry 93 93 Oxygen Delivery Me thod Room Air Room Air Oxygen Flow Rate 0 Fraction of Inspir ed Oxygen 0.21 03/24/22 23:00 03/25/22 07:00 03/25/22 07:00 Temperature Pulse Rate Pulse Rate [Pulse Oximeter] 72 75 Respiratory Rate 18 14 14 Blood Pressure [Le ft Arm] Pulse Oximetry 94 Oxygen Delivery Me thod Room Air Oxygen Flow Rate Fraction of Inspir ed Oxygen 03/25/22 09:09 03/25/22 09:00 Temperature 98.1 F Pulse Rate 75 Pulse Rate [Pulse Oximeter] 75 Respiratory Rate 14 Blood Pressure [Le ft Arm] 146/74 H Pulse Oximetry 94 Oxygen Delivery Me thod Room Air Oxygen Flow Rate Fraction of Inspir ed Oxygen Labs Labs: Laboratory Results - last 24 hr 03/25/22 03/25/22 03/25/22 06:37 06:37 06:37 WBC 3.12 L RBC 4.49 Hgb 12.0 Hct 38.7 MCV 86 MCH 27 MCHC 31 L Plt Count 155 VBG pH VBG pCO2 VBG pO2 VBG HCO3 Sodium 140 Potassium 3.5 L Chloride 105 Carbon Dioxide 32 BUN 9 Creatinine 0.6 Estimated Creat Clear 43.91 Estimated GFR 95 Glucose 92 Uric Acid 5.9 Calcium 8.5 Ionized Calcium Ace Magnesium 1.5 Iron 74 TIBC 263 L % Saturation 28 Total Bilirubin 0.6 GGT 25 AST 19 ALT 20 Alkaline Phosphatase 51 C-Reactive Protein 1.4 H NT-Pro-B Natriuret Pep 4060 Total Protein 6.0 Albumin 2.6 L Triglycerides 91 Cholesterol 118 LDL Cholesterol, Calc 64 HDL Cholesterol 36 L TSH 9.080 H 03/25/22 06:37 WBC RBC Hgb Hct MCV MCH MCHC Plt Count VBG pH 7.442 H VBG pCO2 50 VBG pO2 57.5 H VBG HCO3 34 H Sodium Potassium Chloride Carbon Dioxide BUN Creatinine Estimated Creat Clear Estimated GFR Glucose Uric Acid Calcium Ionized Calcium Ace 1.11 Magnesium Iron TIBC % Saturation Total Bilirubin GGT AST ALT Alkaline Phosphatase C-Reactive Protein NT-Pro-B Natriuret Pep Total Protein Albumin Triglycerides Cholesterol LDL Cholesterol, Calc HDL Cholesterol TSH
--- NOTE | 2022-03-25 16:35 | PC.SOCIAL ---
Discharge planning: Social work [place] to [place] for [place] [facility] [place]. The following facilities able to accept bariatric patients were contacted with the listed results: 1. [facility]: their patient weight limit has changed to 350, unable to evaluate pt for admit due to her weight. 2. [facility]: are unable to admit pt due to her need for wound care. 3. [facility]: not contracted with pt's insurance. 4. [facility] [place]: not contracted with pt's insurance. 5. [facility]: Left message requesting call back. 6. [facility]: Left message requesting call back. 7. [facility]: Left message requesting call back. 8. [facility]: Left message requesting call back. 9. [facility]: Spoke with Monica in admissions and faxed information for evaluation for admission. Awaiting call back with decision on admit. 10. [facility]: Spoke with Annette in admissions and faxed information for evaluation for admission. Awaiting call back with decision on admit. workers compensation defense attorney to follow up as needed.
--- NOTE | 2022-03-25 18:00 | PC.NURSE ---
End of [id number]: Patient pleasant and cooperative. Patient vitally stable, lungs clear, BS WNL, IV intact. Abdominal lap sites x4, open to air and intact. Patient denied pain. Patient 1 assist, walker, gb. Patient urinating. Patient tolerating regular diet, but no with much appetite, had an ice cream and 25% of mashed potatoes. Patient up in chair during this writers shift.
--- NOTE | 2022-03-25 18:09 | PC.NURSE ---
End of Shift: Patient pleasant and cooperative. Patient vitally stable, lungs diminished, BS WNL, No IV. Patient 2 assist with EZ-stand. Patient had 2 BM's in commode. Patient with williamson, draining, and intact. New wrapping applied to lower extremities. Patient's wound dressing performed. Patient had a hamburger for lunch and ate all of it, never drank beverages. Patient ate 75% of dinner, only sip of beverage. Patient did not drink a protein shake during this writers shift. Patient denies pain. Patient has been up in chair all shift.
[2022-03-26 07:00] VITALS: O2SAT 97
--- NOTE | 2022-03-26 07:28 | PC.NURSE ---
Status [id number] Alert and oriented. Pleasant and cooperative. PRN Tylenol given for generalized pain at bedtime. Dressing to buttocks CDI. VSS on room air. Wearing BIPAP overnight. Indwelling catheter patent, low urine output overnight. Pt observed resting throughout night. ?
[2022-03-26 09:28] VITALS: PULSE 94
[2022-03-26] MEDS: METOPROLOL TARTRATE 100 MG TABLET PO ×2 (09:28→20:34)
[2022-03-26] MEDS: APIXABAN 5 MG TABLET PO ×2 (09:28→20:34)
[2022-03-26] MEDS: DIGOXIN 250 MCG TABLET PO (09:28)
[2022-03-26] MEDS: SPIRONOLACTONE 25 MG TABLET PO (09:29)
[2022-03-26] MEDS: MEDROXYPROGESTERONE 5 MG TABLET 10 MG PO (09:29)
[2022-03-26] MEDS: FUROSEMIDE 40 MG TABLET PO (09:29)
[2022-03-26] MEDS: POTASSIUM CHLORIDE 10 MEQ CAPSULE ER 20 MEQ PO ×2 (09:29→17:46)
[2022-03-26] MEDS: NYSTATIN POWDER 1 APPLIC TOPICAL ×2 (09:30→20:35)
[2022-03-26] MEDS: LACTOBACILLUS ACIDOPHILUS 1 TABLET 1 TAB PO ×3 (09:30→17:46)
[2022-03-26] MEDS: SERTRALINE 50 MG TABLET PO (09:30)
--- NOTE | 2022-03-26 11:21 | PM.GSPN ---
Subjective Subjective Date Seen: 03/26/22 Interval history: Patient is doing great. No concerns regarding her wounds. Denies any pain or drainage. Is continuing to work with PT towards dischrage. Exam Narrative: Exam Narrative: General: alert and oriented, no acute concerns : deferred at this time. Ghosh remains in place. Const: Vital Signs, click to edit/add: Vital Signs - 24 hr 03/25/22 11:37 03/25/22 11:39 03/25/22 15:25 Temperature 97.8 F 98 F Pulse Rate Pulse Rate [Pulse Oximeter] 68 90 Respiratory Rate 14 20 Blood Pressure [Le ft Arm] 155/88 H 149/111 H Pulse Oximetry 93 90 Oxygen Delivery Me thod Room Air Room Air Fraction of Inspir ed Oxygen 0.21 03/25/22 15:00 03/25/22 15:00 03/25/22 21:21 Temperature Pulse Rate Pulse Rate [Pulse Oximeter] 90 104 H Respiratory Rate 20 20 20 Blood Pressure [Le ft Arm] 146/87 H Pulse Oximetry 90 91 Oxygen Delivery Me thod Room Air Room Air Fraction of Inspir ed Oxygen 03/25/22 23:00 03/25/22 23:00 03/26/22 09:28 Temperature Pulse Rate 94 Pulse Rate [Pulse Oximeter] Respiratory Rate 20 20 Blood Pressure [Le ft Arm] Pulse Oximetry 91 Oxygen Delivery Me thod Room Air BiPAP Fraction of Inspir ed Oxygen 03/26/22 07:00 03/26/22 10:11 Temperature Pulse Rate Pulse Rate [Pulse Oximeter] Respiratory Rate Blood Pressure [Le ft Arm] Pulse Oximetry 97 Oxygen Delivery Me thod Room Air Fraction of Inspir ed Oxygen 0.21 Progress Note: A&P Assessment and plan (1) Stage III pressure ulcer of buttock: Problem details: stage III right buttock pressure ulcer. She also has a stage II left buttock pressure ulcer. Alternating pressure mattress in place. Status: Acute Assessment and Plan: Wound check deferred this morning with patient actively working with PT in the chair. No concerns from nursing or patient on how her pressure wounds are healing. Ok to extend dressings to three times weekly (M, W, Fr) of iodosorb and outer mepilex. Continue to off load with an air mattress. Will check on the wound again on Wednesday, if patient continues to be inpatient. For any acute concerns please contact the operations research manager surgeon.
--- NOTE | 2022-03-26 11:55 | PM.IMPN1 ---
Progress Note: A&P Assessment and plan (1) Weakness generalized: Problem details: - patient is making progress. most movements are 2 person assist and easy stand. coaching needed. engaging discussion 03/25/22 about her motivation, goal setting, grit and absolute need to try everyday. She agrees and would like to return to independent living. - PT and OT following, fall risk. Requiring assistance with ADLs - Will need bariatric equipment - TCU placement still pending Status: Acute (2) Acute respiratory failure with hypercapnia: Problem details: Nocturnal, suggestive of obstructive sleep apnea. Current BiPAP settings of 18 cm H20 iPap/10 cm H20 ePap Following gases intermittently Status: Acute (3) Lymphedema associated with obesity: Problem details: will attempt to get lymphedema pumps from a third green party vendor if possible. accurate bed weights needed. asked dietican to narrow and increase strictness of diet choices. I rounded (03/24/22) and saw carrot cake, coke, lays chips on the bedside table. Protein goals, vegetables, fruits acceptable. no refined carbs. Status: Acute (4) Pressure ulcer of buttock: Problem details: - General surgery, I&D in OR 03/04. Dr. Rice will round 2x/week while patient is here - Zosyn initiated on admission, discontinued on 03/06 Status: Acute (5) Adjustment disorder: Problem details: started zoloft 25mg on 03/13, increased to 50mg 03/24. Status: Acute (6) Incontinence associated dermatitis: Problem details: - continue williamson and prn loperamide for loose stools (c. diff negative) - continue wound care as per surgery/Wound consult recommendations Status: Acute (7) Vaginal bleeding: Problem details: EUA, EMB and Pap smear 03/12/2022. Thankful for the support of our OBGYN partners - please see their final consult note from 03/19/2022. Pap and pathology come back on 03/19/2022 as inconclusive. - 03/19 Dr. Wagner recommend starting her on Provera 10mg QD for endometrial protection, until such time that we can safely pursue other surgical options which include, D&C/hysterectomy. - Progesterone started 03/21/22 Status: Acute Subjective Date Seen: 03/26/22 Interval history: Daily Progress Note - Hospital Medicine Day #: 25 CC: generalized weakness, morbid obesity, lymphedema, pressure ulcers, AFlutter OVERNIGHT UPDATES FROM STAFF & MED, LAB, IMAGING UPDATES Small a significant gains made in her mobility over the last 48 hours. Patient now can become upright with the EZ stand. She can pivot and sit on the bedside commode. All other transfers have been by sling. Patient feels her spirits are about the same as they have been. Today's visit rodriguez roughly the 3 week point in her hospitalization. Multi disciplinary team meeting: -nutrition to become more involved, stricter about diet choices. Protein goals to be met every day, vegetables and high-protein, high values foods only. No refined sugar. Team will post and track weight loss goals each week. -PT and OT rounding with bedside instruction sheets available for patients continued rehab - posting sheets for tips and times. No TV during this work. -strict daily weights. Be supine and without extra weight on the bed during waking. -DME request to our 3rd green party vendor for lymphedema pumps -trial of Lasix and spironolactone to help alleviate some of her edema (day 2) -increasing her zoloft from 25-50mg daily -wound care is progressing and now is only needed M.W.F and prn Objective: Vitals: see above Lungs: Clear. Cardiac: S1S2. Pitting edema, 2+ bilaterally. Chronic lymphedema. Williamson catheter in place. Disposition/Potential discharge - When her rehab potential is moderate to good, needing 1-2 assist we can keep pursuing transfer to rehab. Total time is 35 minutes with greater than 50% spent in counseling and coordination of care. Exam Const: Vital Signs, click to edit/add: Vital Signs - 24 hr 03/25/22 15:25 03/25/22 15:00 03/25/22 15:00 Temperature 98 F Pulse Rate Pulse Rate [Pulse Oximeter] 90 90 Respiratory Rate 20 20 20 Blood Pressure [Le ft Arm] 149/111 H Pulse Oximetry 90 90 Oxygen Delivery Me thod Room Air Room Air Fraction of Inspir ed Oxygen 03/25/22 21:21 03/25/22 23:00 03/25/22 23:00 Temperature Pulse Rate Pulse Rate [Pulse Oximeter] 104 H Respiratory Rate 20 20 20 Blood Pressure [Le ft Arm] 146/87 H Pulse Oximetry 91 91 Oxygen Delivery Me thod Room Air Room Air BiPAP Fraction of Inspir ed Oxygen 03/26/22 09:28 03/26/22 07:00 03/26/22 10:11 Temperature Pulse Rate 94 Pulse Rate [Pulse Oximeter] Respiratory Rate Blood Pressure [Le ft Arm] Pulse Oximetry 97 Oxygen Delivery Me thod Room Air Fraction of Inspir ed Oxygen 0.21
--- NOTE | 2022-03-26 12:18 | NUTR.NU ---
RDN with verbal MD consult for weight loss goals. RDN recommends 0.5%-1% of weight loss per week on average over time from current body weight of 367 lbs. This is roughly 2-4 lbs per week. This allows for safe, gradual weight loss. Continue calorie counts to ensure adequate nutrition and protein. Of note, patient is also on diuretics which may increase total weight loss. RDN will continue to monitor and follow-up prn.
[2022-03-26] MEDS: LOPERAMIDE HCL 2 MG CAPSULE PO ×3 (13:47→20:35)
--- NOTE | 2022-03-26 14:43 | PC.NURSE ---
Pt was calm and cooperative. Pt up in wheelchair/recliner chair 3/4 of shift. Pt transferred with Ez-Stand with assist of 2. Pt tolerated well.
[2022-03-26 15:00] VITALS: RESP 20; O2SAT 93
--- NOTE | 2022-03-26 16:02 | PC.SOCIAL ---
Discharge planning: Spoke multiple times throughout the day with Annette, andria at [facility]. They requested additional information and nursing report which were provided. They are considering pt for admit and will call back with decision. Left message with Monica at the [facility], requesting call back to confirm receipt of referral for admission to shelter. Awaiting call back. Received call back from [facility] and [facility] confirming they are not contracted with pt's insurance so are unable to assess for admission. layup worker to follow up as needed.
--- NOTE | 2022-03-26 18:58 | PC.NURSE ---
Shift note: Pt reported of having diarrhea in the morning and Loperamide was effective. Asked another one at 1700, but confirmed not diarrhea since the second dose. Refused turning and reposition.
[2022-03-26 19:00] VITALS: BP 169/79; PULSE 69; RESP 18; TEMP 37; O2SAT 95
[2022-03-26 23:00] VITALS: BP 119/54; PULSE 69; PULSE 70; RESP 18; TEMP 36.6; O2SAT 96
[2022-03-27] VITALS (8 sets, daily range): BP systolic 134–155; BP diastolic 56–99; PULSE 67–92; RESP 18; TEMP 36.6–36.8; O2SAT 91–98
[2022-03-27 00:11] LABS: Total T3 125 ng/dL (80-200)
[2022-03-27] MEDS: ACETAMINOPHEN 325 MG TABLET 975 MG PO (06:54)
[2022-03-27 07:10] LABS: Chloride* 104 mmol/L (96-114); Sodium* 139 mmol/L (135-149)
[2022-03-27 07:11] LABS: Potassium* 3.8 mmol/L (3.6-5.1)
[2022-03-27 07:13] LABS: Creatinine* 0.7 mg/dL (0.5-1.5); Est. Creatinine Clearance* 43.91; Estimated Glomerular Filt Rate 92 ml/min
[2022-03-27 07:14] LABS: Blood Urea Nitrogen* 6 mg/dL (7-30); Calcium* 8.6 mg/dL (8.4-10.6); Carbon Dioxide* 32 mmol/L (20-32); Glucose* 79 mg/dL (60-115)
--- NOTE | 2022-03-27 07:48 | PC.NURSE ---
VSS on RA. Patient is alert and oriented x 3, able to call for help. Ghosh Cath in place draining well. Requires assist of two with transfers. Pt turned and repo as scheduled. Pt appears to be stable, call light with in reach.
[2022-03-27] MEDS: SPIRONOLACTONE 25 MG TABLET PO (09:17)
[2022-03-27] MEDS: SERTRALINE 50 MG TABLET PO (09:17)
[2022-03-27] MEDS: POTASSIUM CHLORIDE 10 MEQ CAPSULE ER 20 MEQ PO ×2 (09:17→17:45)
[2022-03-27] MEDS: LOPERAMIDE HCL 2 MG CAPSULE PO (09:17)
[2022-03-27] MEDS: APIXABAN 5 MG TABLET PO ×2 (09:18→20:44)
[2022-03-27] MEDS: LACTOBACILLUS ACIDOPHILUS 1 TABLET 1 TAB PO ×2 (09:18→17:45)
[2022-03-27] MEDS: FUROSEMIDE 40 MG TABLET PO (09:18)
[2022-03-27] MEDS: METOPROLOL TARTRATE 100 MG TABLET PO ×2 (09:18→20:43)
[2022-03-27] MEDS: DIGOXIN 250 MCG TABLET PO (09:18)
[2022-03-27] MEDS: NYSTATIN POWDER 1 APPLIC TOPICAL ×2 (09:19→20:44)
[2022-03-27] MEDS: MEDROXYPROGESTERONE 5 MG TABLET 10 MG PO (09:19)
--- NOTE | 2022-03-27 12:36 | REH.OT ---
OT:Current bariatric w/c patient is using in the hospital is larger than her needs. This w/c is 32 wide x 18 deep and 40rim to rim. With measurements taken, pt would benefit from manual w/c which is 26wide x 18 deep to progress with wheelchair mobility.
--- NOTE | 2022-03-27 13:38 | REH.OT ---
OT: Updated, Bariatric w/c patient using here is larger than pt needs. It is 32 wide x 20 deep and 40rim to rim. With measurements taken, pt would benefit from manual w/c which is 26wide x 18 deep to progress with wheelchair mobility in rehab setting.
--- NOTE | 2022-03-27 15:23 | PC.NURSE ---
End of Shift. Pt is very pleasant and cooperative. she had a PEREZ this am and she got po Tylenol. she has no SL. . Pt is up with 2 assist with EZ-stand. 1 BM on the BSC. Pt with Davina, is patent and draining. it was pungent and had sediment and was cloudy leg wrapping taken off extremities. Patient's wound dressing performed. Patient has been up in chair all shift.
--- NOTE | 2022-03-27 16:13 | PM.IMPN1 ---
Progress Note: A&P Assessment and plan (1) Weakness generalized: Problem details: - patient is making progress. most movements are 2 person assist and easy stand. coaching needed. engaging discussion 03/25/22 about her motivation, goal setting, grit and absolute need to try everyday. She agrees and would like to return to independent living. - PT and OT following, fall risk. Requiring assistance with ADLs - Will need bariatric equipment - TCU placement still pending Status: Acute (2) Acute respiratory failure with hypercapnia: Problem details: Nocturnal, suggestive of obstructive sleep apnea. Current BiPAP settings of 18 cm H20 iPap/10 cm H20 ePap Following gases intermittently Status: Acute (3) Lymphedema associated with obesity: Problem details: Continue to work on compression and lymphedema pumps. Status: Acute (4) Pressure ulcer of buttock: Problem details: - General surgery, I&D in OR 03/04. Dr. Rice will round 2x/week while patient is here - Zosyn initiated on admission, discontinued on 03/06 Secondhand report is modest slow improvement Status: Acute (5) Adjustment disorder: Problem details: started zoloft 25mg on 03/13, increased to 50mg 03/24. Status: Acute (6) Incontinence associated dermatitis: Problem details: - continue williamson and prn loperamide for loose stools (c. diff negative) - continue wound care as per surgery/Wound consult recommendations Status: Acute (7) Vaginal bleeding: Problem details: EUA, EMB and Pap smear 03/12/2022. Thankful for the support of our OBGYN partners - please see their final consult note from 03/19/2022. Pap and pathology come back on 03/19/2022 as inconclusive. - 03/19 Dr. Wagner recommend starting her on Provera 10mg QD for endometrial protection, until such time that we can safely pursue other surgical options which include, D&C/hysterectomy. 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 provera started Continue to work on diet, high-protein but calorie restricted Status: Acute Plan Continue in-hospital pending clinical improvement to a time that she can go to retirement facility. Continue current plan of care. Patient appears to be cooperating with a more aggressive stance regarding diet and exercise and working with therapy. Time Spent With Patient Total time spent: Total time spent today is 35 minutes, 30 minutes in coordination of care and discussing with patient and other providers ongoing evaluation management of multiple medical problems outlined above Subjective Date Seen: 03/27/22 Interval history: 72-year-old female seen in hospitalization for weakness, decubitus ulcer, respiratory failure, atrial flutter, vaginal bleeding, morbid obesity. Patient reports doing better today. She reports she feels stronger. She reports that she has been making progress with therapy. She is now on a restrictive diet. She is accepting of that. She has no new concerns today. Exam Narrative: Exam Narrative: She is alert and pleasant. She is in no distress. Respirations are clear to auscultation. She has diminished breath sounds without wheezing rales rhonchi. Cardiovascular: S1, S2, regular rate and rhythm. No murmur gallop or rub. Abdomen: Bowel sounds active. Abdomen is soft without tenderness or mass. External genitalia normal. She is hyper bit mentation in her skin folds and under her pannus but no obvious infection. Extremities with 1+ edema below the knees. Prominent dry skin noted. Good pedal pulses. Const: Vital Signs, click to edit/add: Vital Signs - 24 hr 03/26/22 19:00 03/26/22 23:00 03/26/22 23:00 Temperature 98.6 F Pulse Rate Pulse Rate [Pulse Oximeter] 69 69 Respiratory Rate 18 18 Blood Pressure [Le ft Arm] Blood Pressure [Ri ght Arm] 169/79 H Pulse Oximetry 95 Oxygen Delivery Me thod Room Air Room Air Oxygen Flow Rate Fraction of Inspir ed Oxygen 03/26/22 23:00 03/27/22 03:00 03/27/22 07:48 Temperature 98 F 98.1 F Pulse Rate Pulse Rate [Pulse Oximeter] 70 70 Respiratory Rate 18 18 18 Blood Pressure [Le ft Arm] Blood Pressure [Ri ght Arm] 119/54 L 134/56 L Pulse Oximetry 96 98 92 Oxygen Delivery Me thod Room Air Room Air Room Air Oxygen Flow Rate Fraction of Inspir ed Oxygen 03/27/22 07:48 03/27/22 07:51 03/27/22 09:18 Temperature 98.0 F Pulse Rate 84 Pulse Rate [Pulse Oximeter] 84 84 Respiratory Rate 18 18 Blood Pressure [Le ft Arm] 141/79 H Blood Pressure [Ri ght Arm] Pulse Oximetry 92 Oxygen Delivery Me thod Room Air Oxygen Flow Rate 0 Fraction of Inspir ed Oxygen 03/27/22 09:55 03/27/22 12:35 Temperature 98.2 F Pulse Rate Pulse Rate [Pulse Oximeter] 91 Respiratory Rate 18 Blood Pressure [Le ft Arm] 155/90 H Blood Pressure [Ri ght Arm] Pulse Oximetry 91 Oxygen Delivery Me thod Room Air Oxygen Flow Rate Fraction of Inspir ed Oxygen 0.21 Documenting provider has reviewed patient's vital signs: yes Labs Labs: Laboratory Results - last 24 hr 03/25/22 03/27/22 06:37 06:38 Sodium 139 Potassium 3.8 Chloride 104 Carbon Dioxide 32 BUN 6 L Creatinine 0.7 Estimated Creat Clear 43.91 Estimated GFR 92 Glucose 79 Calcium 8.6 Thyroxine (T4) 7.86 T3 125
--- NOTE | 2022-03-27 16:34 | PC.SOCIAL ---
Social Work Note Discharge Planning- Made Phone calls to the following SNF's to locate placement for pt. Message was left on confidential admissions voice mail [facility] [phone] [facility] [phone] [facility] [phone] [facility] [phone] [facility] [phone] [facility] [phone] [facility] [phone] [facility] [phone] The following Mailboxes were full and a message could not be left Lucian Sharma [facility] [phone] [facility] [place] [place] [phone] [facility] [phone] Social Work to continue to follow up
--- NOTE | 2022-03-27 17:59 | PC.NURSE ---
Shift Summary 15-19: Patient pleasant and cooperative. New wraps on bilat calves. Denies pain at rest, pain while moving legs for wraps however denied need for medication. Urine improved since earlier, appears clear and steel tester.
--- NOTE | 2022-03-27 18:51 | PC.SOCIAL ---
Social work: Continuing to work on locating retirement facility placement for pt, called pt's [facility] discharge planning case planner Carie at [phone]. Left message requesting assistance and resources for locating an insurance contracted retirement facility that can meet pt's specific needs. Pt's bariatric needs and use of bipap are factors that have prevented her from acceptance at facilities previously contacted. Awaiting call back from case planner. Located list of insurance contracted retirement facilities on the [facility] [employer] website for facilities within 100 miles of this location and used this list for phone calls placed by social media editor, Alexia Gonzalez, documented in previous social work note. Received call back from [facility] stating they are not able to accept pt due to the required wheelchair being too wide to safely get through their room doors. Received call back from [facility] stating they are unable to accepot pt due to pt requiring more assistance than they are currently able to provide and suggested social media editor contact them again in about a week if additional progress is made towards less assistance being required. dope and fabric worker to continue to follow up as needed.
[2022-03-28] VITALS (9 sets, daily range): BP systolic 115–174; BP diastolic 73–108; PULSE 66–97; RESP 16–18; TEMP 36.4–36.8; O2SAT 90–97
--- NOTE | 2022-03-28 05:48 | PC.NURSE ---
VSS on RA. Patient is alert and oriented x3. Denies pain throughout this shift. Patient on BiPAP and tolerating well. Ghosh catheter pulled out and was reinserted, patient tolerated well. Pt requires assist of two with bed mobility, turn and reposition and transfers using EZ stand. Pt is incontinent of bowel, Ghosh in place. Call light within reach. Pt appears stable; Will call appropriately.
[2022-03-28] MEDS: SERTRALINE 50 MG TABLET PO (09:05)
[2022-03-28] MEDS: POTASSIUM CHLORIDE 10 MEQ CAPSULE ER 20 MEQ PO ×2 (09:05→17:45)
[2022-03-28] MEDS: FUROSEMIDE 40 MG TABLET PO (09:05)
[2022-03-28] MEDS: SPIRONOLACTONE 25 MG TABLET PO (09:05)
[2022-03-28] MEDS: METOPROLOL TARTRATE 100 MG TABLET PO ×2 (09:05→20:37)
[2022-03-28] MEDS: APIXABAN 5 MG TABLET PO ×2 (09:05→20:38)
[2022-03-28] MEDS: DIGOXIN 250 MCG TABLET PO (09:05)
[2022-03-28] MEDS: LACTOBACILLUS ACIDOPHILUS 1 TABLET 1 TAB PO ×3 (09:07→17:45)
[2022-03-28] MEDS: MEDROXYPROGESTERONE 5 MG TABLET 10 MG PO (09:07)
--- NOTE | 2022-03-28 10:26 | PM.IMPN1 ---
Progress Note: A&P Assessment and plan (1) Weakness generalized: Problem details: - patient is making progress. most movements are 2 person assist and easy stand. coaching needed. engaging discussion 03/25/22 about motivation, goal setting; goal is to return to independent living - PT and OT following, fall risk - Will need bariatric equipment - TCU placement still pending Status: Acute (2) Acute respiratory failure with hypercapnia: Problem details: - Nocturnal, suggestive of obstructive sleep apnea. - Current BiPAP settings of 18 cm H20 iPap/10 cm H20 ePap, patient tolerates this well - Following gases intermittently Status: Acute (3) Lymphedema associated with obesity: Problem details: - Continue to work on compression and lymphedema pumps Status: Acute (4) Pressure ulcer of buttock: Problem details: - General surgery, I&D in OR 03/04. Dr. Rice will round 2x/week while patient is here - Zosyn initiated on admission, discontinued on 03/06 - Secondhand report is modest slow improvement Status: Acute (5) Adjustment disorder: Problem details: - started zoloft 25mg on 03/13, increased to 50mg 03/24. Status: Acute (6) Incontinence associated dermatitis: Problem details: - continue williamson and prn loperamide for loose stools (c. diff negative) - continue wound care as per surgery/Wound consult recommendations Status: Acute (7) Vaginal bleeding: Problem details: - EUA, EMB and Pap smear 03/12/2022. Appreciate Gynecology support; please see final consult note from 03/19/2022. Pap and pathology 03/19/2022 as inconclusive - 03/19: Dr. 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 Medina of Cardiology on 03/06: Patient remains hemodynamically stable and rate controlled at this time, outpatient cardiology follow-up - TTE obtained 03/03 Final Impressions: 1. Technically very limited exam. 2. Normal LV size, normal global systolic function with an estimated EF of 60 - 65%. 3. Enlarged RV w/ reduced function, incompletely visualized. 4. Moderately enlarged left atrium. 5. No hemodynamically significant valve disease detected. Status: Acute Plan - per above - Eliquis for ppx - restful night vitals - decrease frequency of lab draws Subjective Date Seen: 03/28/22 Interval history: Emily is a very pleasant 72-year-old female who was admitted on 03/02/22 for weakness and new onset atrial flutter. During her hospital stay, we have followed these findings in addition to a decubitus ulcer, KEVEN with respiratory failure, BMI >55, vaginal bleeding. She has been seen by Gynecology, General Surgery, nutrition team, wound care, RT, social work, PT, and OT. Patient continues to work with therapies and continues to improve from a conditioning standpoint. She remains medically stable; we are awaiting TCU placement for her. Exam Narrative: Exam Narrative: GEN: Alert and oriented, laying comfortably in bed and answering questions appropriately HEENT: EOMIs bilaterally, no scleral icterus CV: S1, S2; No concerning murmurs, rubs, or gallops R: LCTA bilaterally without concerning wheezing, rales, or rhonchi, air movement adequate Skin: No concerning skin lesions or rashes on exposed skin Neuro: No focal deficits Psych: Appropriate Const: Vital Signs, click to edit/add: Vital Signs - 24 hr 03/27/22 12:35 03/27/22 16:21 03/27/22 16:21 Temperature 98.2 F 98.1 F Pulse Rate Pulse Rate [Pulse Oximeter] 91 67 Respiratory Rate 18 18 18 Blood Pressure [Le ft Arm] 155/90 H Blood Pressure [Ri ght Arm] 154/99 H Pulse Oximetry 91 91 91 Oxygen Delivery Me thod Room Air Room Air Room Air 03/27/22 19:00 03/27/22 23:00 03/27/22 23:00 Temperature 98.3 F Pulse Rate Pulse Rate [Pulse Oximeter] 91 91 Respiratory Rate 18 18 Blood Pressure [Le ft Arm] Blood Pressure [Ri ght Arm] 141/74 H Pulse Oximetry 92 Oxygen Delivery Me thod Room Air Room Air BiPAP 03/27/22 23:00 03/28/22 03:00 03/28/22 09:05 Temperature 97.8 F 98.3 F Pulse Rate 88 Pulse Rate [Pulse Oximeter] 92 92 Respiratory Rate 18 18 Blood Pressure [Le ft Arm] Blood Pressure [Ri ght Arm] 140/72 H 138/78 Pulse Oximetry 93 96 Oxygen Delivery Me thod Room Air 03/28/22 09:23 03/28/22 09:24 Temperature 98.2 F Pulse Rate Pulse Rate [Pulse Oximeter] 97 Respiratory Rate 16 16 Blood Pressure [Le ft Arm] 155/90 H Blood Pressure [Ri ght Arm] Pulse Oximetry 97 97 Oxygen Delivery Me thod Room Air Room Air
[2022-03-28] MEDS: NYSTATIN POWDER 1 APPLIC TOPICAL ×2 (13:32→20:38)
[2022-03-28] MEDS: LOPERAMIDE HCL 2 MG CAPSULE PO (16:14)
--- NOTE | 2022-03-28 17:01 | PC.NURSE ---
Shift Summary: Patient pleasant and cooperative, had x1 loose incont BM this evening. Ghosh cath patent with light felipe urine output. Transfer with 2-3 assist with EZ stand. New dressing over bottom.
[2022-03-28] MEDS: ACETAMINOPHEN 325 MG TABLET 975 MG PO (23:11)
[2022-03-29] VITALS (8 sets, daily range): BP systolic 123–149; BP diastolic 71–81; PULSE 66–80; RESP 16–20; TEMP 36.6–36.9; O2SAT 91–95
--- NOTE | 2022-03-29 06:42 | PC.NURSE ---
VSS on RA. Patient is alert and oriented x 3, uses call light appropriately. Pt c/o of headache, PRN Tylenol given. Patient is using BiPAP machine and tolerating well. Pt requires assist of two with transfers, williamson cath patent and draining well. Pt appears stable, call light within reach.
[2022-03-29] MEDS: MEDROXYPROGESTERONE 5 MG TABLET 10 MG PO (08:58)
[2022-03-29] MEDS: METOPROLOL TARTRATE 100 MG TABLET PO ×2 (08:58→20:28)
[2022-03-29] MEDS: POTASSIUM CHLORIDE 10 MEQ CAPSULE ER 20 MEQ PO ×2 (08:58→17:25)
[2022-03-29] MEDS: DIGOXIN 250 MCG TABLET PO (08:59)
[2022-03-29] MEDS: APIXABAN 5 MG TABLET PO ×2 (08:59→20:28)
[2022-03-29] MEDS: SERTRALINE 50 MG TABLET PO (08:59)
[2022-03-29] MEDS: FUROSEMIDE 40 MG TABLET PO (08:59)
[2022-03-29] MEDS: NYSTATIN POWDER 1 APPLIC TOPICAL ×2 (08:59→20:52)
[2022-03-29] MEDS: SPIRONOLACTONE 25 MG TABLET PO (08:59)
[2022-03-29] MEDS: LACTOBACILLUS ACIDOPHILUS 1 TABLET 1 TAB PO ×3 (09:01→17:25)
--- NOTE | 2022-03-29 10:31 | P.IMPN_ITS ---
Progress Note: A&P Assessment and plan (1) Weakness generalized: Problem details: - patient continues to make progress, requiring 2 person assist and EZ stand; requires TCU at this juncture but ultimate goal is to return to independent living - PT and OT following, fall risk - Will need bariatric equipment - TCU placement still pending Status: Acute (2) Acute respiratory failure with hypercapnia: Problem details: - Nocturnal, suggestive of obstructive sleep apnea. - Current BiPAP settings of 18 cm H20 iPap/10 cm H20 ePap, patient tolerates this well - Following gases intermittently Status: Acute (3) Lymphedema associated with obesity: Problem details: - Continue to work on compression and lymphedema pumps Status: Acute (4) Pressure ulcer of buttock: Problem details: - General surgery, I&D in OR 03/04. Dr. Rice will round 2x/week while patient is here - Zosyn initiated on admission, discontinued on 03/06 - Secondhand report is modest slow improvement Status: Acute (5) Adjustment disorder: Problem details: - started zoloft 25mg on 03/13, increased to 50mg 03/24. Status: Acute (6) Incontinence associated dermatitis: Problem details: - continue williamson and prn loperamide for loose stools (c. diff negative), also working on diet changes to limit diarrhea - continue wound care as per surgery/Wound consult recommendations Status: Acute (7) Vaginal bleeding: Problem details: - EUA, EMB and Pap smear 03/12/2022. Appreciate Gynecology support; please see final consult note from 03/19/2022. Pap and pathology 03/19/2022 as inconclusive - 03/19: Dr. 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 Medina of Cardiology on 03/06: Patient remains hemodynamically stable and rate controlled at this time, outpatient cardiology follow-up - TTE obtained 03/03 Final Impressions: 1. Technically very limited exam. 2. Normal LV size, normal global systolic function with an estimated EF of 60 - 65%. 3. Enlarged RV w/ reduced function, incompletely visualized. 4. Moderately enlarged left atrium. 5. No hemodynamically significant valve disease detected. Status: Acute Plan - per above - Eliquis for prophylaxis Subjective Date Seen: 03/29/22 Interval history: Emily is a very pleasant 72-year-old female, admitted to the hospital on 03/02/22 for weakness and other below findings. She continues to work with therapies and her conditioning continues to improve. She remains medically stable; we are awaiting TCU placement for her. Exam Narrative: Exam Narrative: GEN: Alert and oriented, laying comfortably in bed and answering questions appropriately HEENT: Normal external ears, EOMIs bilaterally, no scleral icterus R: Breathing comfortably Skin: No concerning skin lesions or rashes on exposed skin Neuro: Nonfocal Psych: Appropriate Const: Vital Signs, click to edit/add: Vital Signs - 24 hr 03/28/22 11:43 03/28/22 12:57 03/28/22 15:46 Temperature 97.9 F Pulse Rate Pulse Rate [Pulse Oximeter] 72 Respiratory Rate 18 Blood Pressure [Le ft Arm] Blood Pressure [Ri ght Arm] 147/75 H Pulse Oximetry 91 90 Oxygen Delivery Me thod Room Air Room Air Oxygen Flow Rate Fraction of Inspir ed Oxygen 0.21 03/28/22 15:00 03/28/22 19:00 03/28/22 23:00 Temperature 98.1 F 98 F Pulse Rate Pulse Rate [Pulse Oximeter] 87 88 88 Respiratory Rate 16 18 18 Blood Pressure [Le ft Arm] 174/108 H Blood Pressure [Ri ght Arm] 115/73 Pulse Oximetry 90 95 Oxygen Delivery Me thod Room Air Room Air Oxygen Flow Rate Fraction of Inspir ed Oxygen 03/28/22 23:00 03/28/22 23:00 03/29/22 03:00 Temperature 97.6 F 98.5 F Pulse Rate Pulse Rate [Pulse Oximeter] 66 66 Respiratory Rate 18 18 18 Blood Pressure [Le ft Arm] Blood Pressure [Ri ght Arm] 129/71 Pulse Oximetry 95 94 94 Oxygen Delivery Me thod Room Air Room Air Room Air Oxygen Flow Rate 0 Fraction of Inspir ed Oxygen 0.21 03/29/22 08:25 03/29/22 08:25 03/29/22 08:36 Temperature 97.9 F Pulse Rate Pulse Rate [Pulse Oximeter] 79 Respiratory Rate 16 Blood Pressure [Le ft Arm] 149/76 H Blood Pressure [Ri ght Arm] Pulse Oximetry 91 91 Oxygen Delivery Me thod Room Air Room Air Oxygen Flow Rate Fraction of Inspir ed Oxygen 0.21 03/29/22 08:59 Temperature Pulse Rate 79 Pulse Rate [Pulse Oximeter] Respiratory Rate Blood Pressure [Le ft Arm] Blood Pressure [Ri ght Arm] Pulse Oximetry Oxygen Delivery Me thod Oxygen Flow Rate Fraction of Inspir ed Oxygen
[2022-03-29] MEDS: LOPERAMIDE HCL 2 MG CAPSULE PO ×3 (10:49→20:29)
--- NOTE | 2022-03-29 17:44 | PC.NURSE ---
Shift Summary: Patient pleasant and cooperative. Tolerating EZ stand more today, patient verbalized she was pleased with transfers from bed to BSC/Wheelchair. Had x3 loose incont BM, mepilex on bottom changed, patient requested PRN imodium once in morning and before dinner this evening. Wraps on bilat lower extremities changed. Poor appetite throughout day.
[2022-03-30] MEDS: MELATONIN 3 MG TABLET PO (04:01)
--- NOTE | 2022-03-30 06:51 | PC.NURSE ---
VSS on RA, using BiPAP. Patient is alert and oriented x3, denies pain on assessment. Pt requires assist of two with transfers, incontinent of bowel, williamson in patent and draining well. Pt appears to be stable, call light within reach.
[2022-03-30 07:00] VITALS: PULSE 92; RESP 18; O2SAT 93
[2022-03-30] MEDS: MEDROXYPROGESTERONE 5 MG TABLET 10 MG PO (08:46)
[2022-03-30 08:47] VITALS: PULSE 93
[2022-03-30] MEDS: SERTRALINE 50 MG TABLET PO (08:47)
[2022-03-30] MEDS: SPIRONOLACTONE 25 MG TABLET PO (08:47)
[2022-03-30] MEDS: METOPROLOL TARTRATE 100 MG TABLET PO ×2 (08:47→20:58)
[2022-03-30] MEDS: DIGOXIN 250 MCG TABLET PO (08:47)
[2022-03-30] MEDS: FUROSEMIDE 40 MG TABLET PO (08:47)
[2022-03-30] MEDS: POTASSIUM CHLORIDE 10 MEQ CAPSULE ER 20 MEQ PO ×2 (08:47→17:55)
[2022-03-30] MEDS: LACTOBACILLUS ACIDOPHILUS 1 TABLET 1 TAB PO ×3 (08:47→17:56)
[2022-03-30] MEDS: APIXABAN 5 MG TABLET PO ×2 (08:48→20:57)
[2022-03-30] MEDS: NYSTATIN POWDER 1 APPLIC TOPICAL ×2 (08:48→20:58)
--- NOTE | 2022-03-30 10:01 | PM.IMPN1 ---
Progress Note: A&P Assessment and plan (1) Weakness generalized: Problem details: - patient continues to make progress, requiring 2 person assist and EZ stand; requires TCU at this juncture but ultimate goal is to return to independent living - PT and OT following, + fall risk - Will need bariatric equipment - TCU placement still pending Status: Acute (2) Acute respiratory failure with hypercapnia: Problem details: - Nocturnal, suggestive of obstructive sleep apnea. - Current BiPAP settings of 18 cm H20 iPap/10 cm H20 ePap, patient tolerates this well - Following gases intermittently Status: Acute (3) Lymphedema associated with obesity: Problem details: - Continue to work on compression and lymphedema pumps Status: Acute (4) Pressure ulcer of buttock: Problem details: - General surgery, I&D in OR 03/04. Dr. Rice will round 2x/week while patient is here - Zosyn initiated on admission, discontinued on 03/06 - Secondhand report is modest slow improvement Status: Acute (5) Adjustment disorder: Problem details: - started zoloft 25mg on 03/13, increased to 50mg 03/24. Status: Acute (6) Incontinence associated dermatitis: Problem details: - continue williamson and prn loperamide for loose stools (c. diff negative), also working on diet changes to limit diarrhea - continue wound care as per surgery/Wound consult recommendations Status: Acute (7) Vaginal bleeding: Problem details: - EUA, EMB and Pap smear 03/12/2022. Appreciate Gynecology support; please see final consult note from 03/19/2022. Pap and pathology 03/19/2022 as inconclusive - 03/19: Dr. 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 Medina of Cardiology on 03/06: Patient remains hemodynamically stable and rate controlled at this time, outpatient cardiology follow-up - TTE obtained 03/03 Final Impressions: 1. Technically very limited exam. 2. Normal LV size, normal global systolic function with an estimated EF of 60 - 65%. 3. Enlarged RV w/ reduced function, incompletely visualized. 4. Moderately enlarged left atrium. 5. No hemodynamically significant valve disease detected. Status: Acute (10) Diarrhea: Problem details: - not associated with abdominal pain or cramping - negative C diff, normal TSH - possibly iatrogenic (however, present prior to initiating Zoloft); not currently on antibiotics - has made diet changes, prn Imodium available - given persistent symptoms, add cholestyramine 03/30 Status: Acute Plan - per above - Eliquis for prophylaxis - appreciate input from therapies and social work team Subjective Date Seen: 03/30/22 Interval history: Emily was admitted to the hospital on 03/02/22 after follow up home in the setting of acute on chronic weakness. Notable medical findings requiring management noted below. She continues to have intermittent diarrhea: Normal TSH, negative C diff. Has made some diet changes and has prn Imodium available, but symptoms persist. No hematochezia. She otherwise remains medically stable; we are awaiting TCU placement for her. Exam Narrative: Exam Narrative: GEN: Alert and oriented, sitting up in wheelchair for visit today HEENT: Normal external ears, EOMIs bilaterally, no scleral icterus CV: S1, S2; no concerning murmurs, rubs, or gallops R: LCTA bilaterally without concerning wheezing, rales, or rhonchi Back: No concerning findings or skin lesions Skin: Ulcer not formally examined today, continued improvement noted by RNs Neuro: No focal deficits Psych: Appropriate Const: Vital Signs, click to edit/add: Vital Signs - 24 hr 03/29/22 11:00 03/29/22 15:06 03/29/22 15:07 Temperature 98 F 97.9 F Pulse Rate Pulse Rate [Pulse Oximeter] 69 68 Respiratory Rate 20 18 18 Blood Pressure [Ri ght Arm] 140/81 H 140/74 H Pulse Oximetry 95 93 93 Oxygen Delivery Me thod Room Air Room Air Room Air Fraction of Inspir ed Oxygen 03/29/22 15:13 03/29/22 23:00 03/29/22 23:00 Temperature 98.4 F Pulse Rate Pulse Rate [Pulse Oximeter] 80 80 Respiratory Rate 18 18 Blood Pressure [Ri ght Arm] 123/73 Pulse Oximetry 92 Oxygen Delivery Me thod Room Air Room Air BiPAP Fraction of Inspir ed Oxygen 03/30/22 08:47 03/30/22 09:53 Temperature Pulse Rate 93 Pulse Rate [Pulse Oximeter] Respiratory Rate Blood Pressure [Ri ght Arm] Pulse Oximetry Oxygen Delivery Me thod Fraction of Inspir ed Oxygen 0.21
[2022-03-30] MEDS: CHOLESTYRAMINE POWDER 4 GM PO ×2 (13:03→17:55)
--- NOTE | 2022-03-30 14:07 | PM.GSPN ---
Subjective Subjective Date Seen: 03/30/22 Interval history: Patient is doing ?okay? this morning. Denies any wound pain or concerns. Dressings are being changed only as needed. She has been suffering intermittently from diarrhea. Exam Narrative: Exam Narrative: General: Alert and oriented, no acute distress : Ghosh remains in place. Right buttock pressure ulcer, wound is very superficial with wound bed having granulation tissue. Left buttock wound completely healed. No concern for infection. Const: Vital Signs, click to edit/add: Vital Signs - 24 hr 03/29/22 15:06 03/29/22 15:07 03/29/22 15:13 Temperature 97.9 F 98.4 F Pulse Rate Pulse Rate [Pulse Oximeter] 68 80 Respiratory Rate 18 18 18 Blood Pressure [Ri ght Arm] 140/74 H 123/73 Pulse Oximetry 93 93 92 Oxygen Delivery Me thod Room Air Room Air Room Air Oxygen Flow Rate Fraction of Inspir ed Oxygen 03/29/22 23:00 03/29/22 23:00 03/30/22 08:47 Temperature Pulse Rate 93 Pulse Rate [Pulse Oximeter] 80 Respiratory Rate 18 Blood Pressure [Ri ght Arm] Pulse Oximetry Oxygen Delivery Me thod Room Air BiPAP Oxygen Flow Rate Fraction of Inspir ed Oxygen 03/30/22 09:53 03/30/22 07:00 03/30/22 07:00 Temperature Pulse Rate Pulse Rate [Pulse Oximeter] 92 Respiratory Rate 18 18 Blood Pressure [Ri ght Arm] Pulse Oximetry 93 Oxygen Delivery Me thod Room Air BiPAP Oxygen Flow Rate 0 Fraction of Inspir ed Oxygen 0.21 0.21 Progress Note: A&P Assessment and plan (1) Stage III pressure ulcer of buttock: Problem details: stage III right buttock pressure ulcer. She also has a stage II left buttock pressure ulcer. Alternating pressure mattress in place. Status: Acute Assessment and Plan: Wound continues to heal without any issues. Agree with continuing to do p.r.n. dressings of Iodosorb in outer Mepilex. Will check on the wound again on Wednesday, if patient continues to be inpatient. For any acute concerns please contact the congressional district aide surgeon.
[2022-03-30 15:00] VITALS: PULSE 92; RESP 18; O2SAT 93
[2022-03-30 15:13] VITALS: BP 123/73; BP 149/76; PULSE 92; RESP 18; TEMP 36.9; O2SAT 93
--- NOTE | 2022-03-30 15:38 | PC.SOCIAL ---
Discharge planning: bee worker is continuing to look for longterm placement. Met with pt to update her on efforts made at placement. Pt is aware social work program coordinator is calling facilities off of list of contracted [facility] longterm facilities provided. Pt states she does not have a secondary insurance and is aware that [facility] will only pay for a facility while she is needing skilled care and is making progress with care provided. Pt states she has applied for medical assistance when she was at home but was over income and has not applied for [facility] Medical Assistance. Provided pt with application for Medical Assistance for Informatics Educator Care. She will complete this application tonight and social work program coordinator will fax it in to [facility] when completed. Pt states she does her banking online and thinks she can print out the required proof of bank statements from her IPad at the hospital. bee worker to assist pt with getting proof of income required when she has completed the Medical Assistance application. Called the following longterm facilities from the [facility] contracted list for placement with the listed results: 1. [facility] [phone] - currently no bariatric beds but may have a bed later this week Faxed requested information to the facility at [phone]. 2. [facility] - unable to consider pt for admit due to their weight limit. 3. [facility] - unable to consider pt for admit due to their weight limit. 4. [facility] - Left message. 5. [facility] - unable to consider pt for admit due to their weight limit. 6. [facility] - left message. 7. [facility] - unable to consider pt for admit due to their weight limit. 8. [facility] - Left Message. 9. [facility] - no longer contracted with [facility]. 10. [facility] - unable to consider pt for admit due to their weight limit. 11. [facility] - do not currently have a female bariatric bed. Call back in a week to check on availability if not yet placed. 12. [facility] - They currently do not have any bariatric beds but took the social work program coordinator's contact information and will call back if a bariatric bed becomes available. 13. [facility] - They can not accommodate a patient of that weight who is not more independent with her ambulation. Call back if she is two person assist without deepa lift. 14.[facility] - left message. 15. Received call back from [facility] [phone]- Faxed requested information to [phone]. Awaiting call back with decision on admit. From this list, [facility] are assessing pt for admit. bee worker to follow up as needed.
--- NOTE | 2022-03-30 18:13 | PC.NURSE ---
End of shift note: Pt. pleasant and cooperative. Tolerating EZ stand for transfers from bed to commode and to wheelchair. Pt. had one sm reg BM on the commode, no diarrhea this shift. Mepilex on bottom changed x2. Bilateral SCD's applied and pt. tolerated well. Pt. did not have an appetite for Breakfast or lunch and refused her shake. Ordered dinner for herself.
[2022-03-30 23:00] VITALS: RESP 18
--- NOTE | 2022-03-31 06:37 | PC.NURSE ---
pleasant and cooperative. WT 356lbs, SCD machine removed for wt along with extra linens and pillows. Charge updated on WT change, will pass along to oncoming RN.?Pt wore BiPAP while asleep. Ghosh patent and draining. No BM.
[2022-03-31 07:00] VITALS: PULSE 92; RESP 18; O2SAT 92
[2022-03-31 07:36] LABS: HCO3 VBG 35 mmol/L (21-28); PCO2 VBG 55 mmHG (40-50); PO2 VBG 32.4 mmHG (25-47); pH VBG 7.418 (7.32-7.43)
[2022-03-31 07:46] LABS: Basophils Percent Auto 0.3 % (0.0-3.0); Hematocrit 38.9 % (33.0-51.0); Hemoglobin* 12.1 gm/dL (12.0-16.0); Lymphocytes Percent Auto 39.3 % (20-44); Mean Corpuscular HGB Conc 31 gm/dL (32-36); Mean Corpuscular Hemoglobin 27 pg (26-34); Mean Corpuscular Volume 86 fL (80-100); Monocytes Percent Auto 12.4 % (0.0-11.0); Platelet Count* 160 K/uL (140-440); RDW Coefficient of Variation % 15.2 % (11.5-15.5); Red Blood Count 4.55 m/uL (4.00-5.20); White Blood Count* 3.23 K/uL (4.50-11.00)
[2022-03-31 07:54] LABS: Slide Review Reflex No
[2022-03-31 07:59] LABS: Albumin* 2.7 g/dL (3.3-5.0); Chloride* 104 mmol/L (96-114)
[2022-03-31 08:00] LABS: Potassium* 3.7 mmol/L (3.6-5.1); Sodium* 137 mmol/L (135-149)
[2022-03-31 08:02] LABS: Alkaline Phosphatase* 49 U/L (40-150); Aspartate Amino Transferase* 19 U/L (12-35); Bilirubin Total* 0.7 mg/dL (0.1-1.5); Blood Urea Nitrogen* 6 mg/dL (7-30); Carbon Dioxide* 34 mmol/L (20-32); Creatinine* 0.7 mg/dL (0.5-1.5); Est. Creatinine Clearance* 43.91; Estimated Glomerular Filt Rate 92 ml/min; Glucose* 84 mg/dL (60-115); Total Protein* 6.3 g/dL (6.0-8.3)
[2022-03-31 08:03] LABS: Alanine Aminotransferase* 20 U/L (4-35); Calcium* 8.6 mg/dL (8.4-10.6); Magnesium* 1.5 mg/dL (1.5-2.6)
[2022-03-31] MEDS: NYSTATIN POWDER 1 APPLIC TOPICAL ×2 (09:01→21:24)
[2022-03-31] MEDS: POTASSIUM CHLORIDE 10 MEQ CAPSULE ER 20 MEQ PO ×2 (09:01→17:37)
[2022-03-31] MEDS: CHOLESTYRAMINE POWDER 4 GM PO ×2 (09:01→17:37)
[2022-03-31 09:02] VITALS: PULSE 93
[2022-03-31] MEDS: LACTOBACILLUS ACIDOPHILUS 1 TABLET 1 TAB PO ×3 (09:02→17:37)
[2022-03-31] MEDS: DIGOXIN 250 MCG TABLET PO (09:02)
[2022-03-31] MEDS: APIXABAN 5 MG TABLET PO ×2 (09:02→21:24)
[2022-03-31] MEDS: SERTRALINE 50 MG TABLET PO (09:02)
[2022-03-31] MEDS: METOPROLOL TARTRATE 100 MG TABLET PO ×2 (09:02→21:24)
[2022-03-31] MEDS: FUROSEMIDE 40 MG TABLET PO (09:02)
[2022-03-31] MEDS: SPIRONOLACTONE 25 MG TABLET PO (09:02)
[2022-03-31 09:42] LABS: Digoxin* 0.7 ng/mL (0.8-2.0)
[2022-03-31] MEDS: MEDROXYPROGESTERONE 5 MG TABLET 10 MG PO (10:45)
--- NOTE | 2022-03-31 11:38 | PC.SOCIAL ---
Discharge plan: Received calls from the following facilities where phone messages had previously been left: 1. [facility] - unable to admit pt due to weight limit. 2. [facility] - unable to admit pt due to weight limit. 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
[2022-03-31] MEDS: LOPERAMIDE HCL 2 MG CAPSULE PO (12:15)
--- NOTE | 2022-03-31 12:47 | PC.SOCIAL ---
Discharge plan: Met with pt who has completed the Medical Assistance Shelter Care Application. Pt has contacted her bank and requested three months of statements be faxed to her at the hospital to be attached to Medical Assistance application as proof of income. Called [facility] Rand Tacker Essence to update her on discharge challenges. Essence suggested completed Medical Assistance application be faxed directly to pt's financial worker at [facility], Kortney Rocha (phone [phone], fax [phone]). Faxed completed application and called Kortney and lexi message stating bank statements will follow with contact information for pt and social service coordinator if additional information is needed.
--- NOTE | 2022-03-31 13:55 | PM.IMPN1 ---
Progress Note: A&P Assessment and plan (1) Weakness generalized: Problem details: - patient continues to make progress, requiring 2 person assist and EZ stand; requires TCU at this juncture but ultimate goal is to return to independent living - PT and OT following, + fall risk - Will need bariatric equipment - TCU placement still pending Status: Acute (2) Pressure ulcer of buttock: Problem details: - General surgery, I&D in OR 03/04. Dr. Rice will round 2x/week while patient is here - Zosyn initiated on admission, discontinued on 03/06 - Secondhand report is modest slow improvement Status: Acute (3) Self neglect: Problem details: Certain level of poor judgment in regard to self cares and self awareness which allowed her to progress to her current state. Did not think to call for help when she was on the floor for several days when she 1st presented. Status: Acute (4) Lymphedema associated with obesity: Problem details: - Continue to work on compression and lymphedema pumps Status: Acute (5) Diarrhea: Problem details: - not associated with abdominal pain or cramping - negative C diff, normal TSH - possibly iatrogenic (however, present prior to initiating Zoloft); not currently on antibiotics - has made diet changes, schedule imodium with hold parameters - given persistent symptoms, add cholestyramine 03/30 Status: Acute (6) Adjustment disorder: Problem details: - started zoloft 25mg on 03/13, increased to 50mg 03/24. Status: Acute (7) Acute respiratory failure with hypercapnia: Problem details: - Nocturnal, suggestive of obstructive sleep apnea. - Current BiPAP settings of 18 cm H20 iPap/10 cm H20 ePap, patient tolerates this well - Following gases intermittently Status: Acute (8) Vaginal bleeding: Problem details: - EUA, EMB and Pap smear 03/12/2022. Appreciate Gynecology support; please see final consult note from 03/19/2022. Pap and pathology 03/19/2022 as inconclusive - 03/19: Dr. Wagner recommend starting Provera 10mg QD for endometrial protection, until she can safely pursue other surgical options (D&C/hysterectomy, etc) - Progesterone initiated 03/21/22 Status: Acute (9) Incontinence associated dermatitis: Problem details: - continue williamson and prn loperamide for loose stools (c. diff negative), also working on diet changes to limit diarrhea - continue wound care as per surgery/Wound consult recommendations Status: Acute Subjective Date Seen: 03/31/22 Interval history: Daily Progress Note - Hospital Medicine #: 30 CC: generalized weakness, morbid obesity, lymphedema, pressure ulcers, AFlutter OVERNIGHT UPDATES FROM STAFF & MED, LAB, IMAGING UPDATES Small a significant gains made in her mobility continue. She has been in the wheelchair in the tong with scooting a bit with her legs. unable to stand from the wheelchair. able to have 1-2 assist to easy stand. doing self cares at the sink. ? Patient now can become upright with the EZ stand.? She can pivot and sit on the bedside commode.? All other transfers have been by sling.? Patient feels her spirits are about the same as they have been.? Multi disciplinary team meeting: -nutrition has been on top of calorie counts, and limited healthy menu. Down 13lbs since 03/25/22. -PT and OT rounding with bedside instruction sheets available for patients continued rehab - posting sheets for tips and times. No TV during this work. -strict daily weights. Be supine and without extra weight on the bed during waking. -DME request to our 3rd green party vendor for lymphedema pumps (IN USE!) -trial of Lasix and spironolactone to help alleviate some of her edema, POTASSIUM AND CREATINE ARE STABLE. ON REPLACEMENT. -started and titrated Zoloft (now 50mg) -wound care is progressing and now is only needed M.W.F and prn Objective: Vitals: see above Lungs: Clear. Cardiac: no harsh murmurs; irregular Disposition/Potential discharge - Needs SNF Total time is 35 minutes with greater than 50% spent in counseling and coordination of care. Exam Const: Vital Signs, click to edit/add: Vital Signs - 24 hr 03/30/22 15:00 03/30/22 15:00 03/30/22 15:13 Temperature 98.4 F Pulse Rate Pulse Rate [Pulse Oximeter] 92 92 Respiratory Rate 18 18 18 Blood Pressure [Le ft Arm] 149/76 H Blood Pressure [Ri ght Arm] 123/73 Pulse Oximetry 93 93 Oxygen Delivery Me thod Room Air BiPAP Room Air BiPAP Oxygen Flow Rate 0 0 Fraction of Inspir ed Oxygen 0.21 0.21 03/30/22 23:00 03/30/22 23:00 03/31/22 07:00 Temperature Pulse Rate Pulse Rate [Pulse Oximeter] 92 Respiratory Rate 18 18 Blood Pressure [Le ft Arm] Blood Pressure [Ri ght Arm] Pulse Oximetry Oxygen Delivery Me thod Room Air BiPAP Oxygen Flow Rate Fraction of Inspir ed Oxygen 03/31/22 07:00 03/31/22 09:02 03/31/22 09:54 Temperature Pulse Rate 93 Pulse Rate [Pulse Oximeter] Respiratory Rate 18 Blood Pressure [Le ft Arm] Blood Pressure [Ri ght Arm] Pulse Oximetry 92 Oxygen Delivery Me thod Room Air BiPAP Oxygen Flow Rate 0 Fraction of Inspir ed Oxygen 0.21 21 Labs Labs: Laboratory Results - last 24 hr 03/31/22 03/31/22 03/31/22 07:12 07:12 07:12 WBC 3.23 L RBC 4.55 Hgb 12.1 Hct 38.9 MCV 86 MCH 27 MCHC 31 L RDW Coeff of Sal 15.2 Plt Count 160 Neut % (Auto) 44.0 Lymph % (Auto) 39.3 [place] % (Auto) 12.4 H Eos % (Auto) 4.0 Baso % (Auto) 0.3 Neut # (Auto) 1.40 L Lymph # (Auto) 1.30 [place] # (Auto) 0.40 Eos # (Auto) 0.10 Baso # (Auto) 0.00 VBG pH VBG pCO2 VBG pO2 VBG HCO3 Sodium 137 Potassium 3.7 Chloride 104 Carbon Dioxide 34 H BUN 6 L Creatinine 0.7 Estimated Creat Clear 43.91 Estimated GFR 92 Glucose 84 Calcium 8.6 Magnesium 1.5 Total Bilirubin 0.7 AST 19 ALT 20 Alkaline Phosphatase 49 Total Protein 6.3 Albumin 2.7 L Digoxin 0.7 L 03/31/22 07:12 WBC RBC Hgb Hct MCV MCH MCHC RDW Coeff of Sal Plt Count Neut % (Auto) Lymph % (Auto) [place] % (Auto) Eos % (Auto) Baso % (Auto) Neut # (Auto) Lymph # (Auto) [place] # (Auto) Eos # (Auto) Baso # (Auto) VBG pH 7.418 VBG pCO2 55 H VBG pO2 32.4 VBG HCO3 35 H Sodium Potassium Chloride Carbon Dioxide BUN Creatinine Estimated Creat Clear Estimated GFR Glucose Calcium Magnesium Total Bilirubin AST ALT Alkaline Phosphatase Total Protein Albumin Digoxin
[2022-03-31 15:00] VITALS: BP 118/70; PULSE 68; PULSE 92; RESP 18; TEMP 36.9; O2SAT 92; O2SAT 93
--- NOTE | 2022-03-31 15:41 | PC.SOCIAL ---
Addendum entered by ERNIE Cavanaugh 04/01/22 17:11: Received call from [facility], declining pt for admit as they are unable to accept a pt on bipap. Addendum entered by ERNIE Cavanaugh 03/31/22 16:59: Received calls back from [facility] and [facility], both stating they can not consider pt for admit due to her being over their weight limit. Original Note: Discharge planning: Continuing to look for custodial facility placement for pt, called the following custodial facilities from the contracted list provided by [facility] with the listed results: 1. [facility] - Left message with information and requested call back of interested. 2. [facility] - Left message with information and requested call back of interested. [facility] Left [facility] with information and requested call back of interested. 4. [facility] - Left message with information and requested call back of interested. 5. [facility] - Left message with information and requested call back of interested. 6. [facility] - Left message with information and requested call back of interested. 7. [facility] - Left message with information and requested call back of interested. 8. [facility] - Left message with information and requested call back of interested. 10. [facility] - Left message with information and requested call back of interested. 11.[facility] - no longer [facility] contracted. 12. [facility] - Left message with information and requested call back of interested. 13. [facility] - Left message with information and requested call back of interested. 14. [facility] - Left message with information and requested call back of interested. 15. [facility] - [phone] - Confirmed they received fax yesterday and have not yet made decision. Awaiting call regarding decision on admit.
--- NOTE | 2022-03-31 18:10 | PC.NURSE ---
End of shift note: Pt. pleasant and cooperative, alert and oriented x4. Tolerating EZ stand for transfers from bed to commode and to wheelchair. Pt. had one LG reg BM on the commode, and one soft BM. Mepilex on bottom changed x2. Bilateral SCD's applied and pt. tolerated well. Pt. did not have an appetite for Breakfast or lunch and refused her shake. Ordered dinner for herself.
[2022-03-31 23:00] VITALS: PULSE 68; RESP 18; O2SAT 95
[2022-04-01 07:00] VITALS: PULSE 68; RESP 18; O2SAT 92
[2022-04-01 09:12] VITALS: PULSE 93
[2022-04-01] MEDS: DIGOXIN 250 MCG TABLET PO (09:12)
[2022-04-01] MEDS: LOPERAMIDE HCL 2 MG CAPSULE PO (09:12)
[2022-04-01] MEDS: POTASSIUM CHLORIDE 10 MEQ CAPSULE ER 20 MEQ PO ×2 (09:12→17:49)
[2022-04-01] MEDS: LACTOBACILLUS ACIDOPHILUS 1 TABLET 1 TAB PO ×3 (09:12→17:50)
[2022-04-01] MEDS: MEDROXYPROGESTERONE 5 MG TABLET 10 MG PO (09:12)
[2022-04-01] MEDS: NYSTATIN POWDER 1 APPLIC TOPICAL (09:12)
[2022-04-01] MEDS: CHOLESTYRAMINE POWDER 4 GM PO ×2 (09:12→17:49)
[2022-04-01] MEDS: APIXABAN 5 MG TABLET PO ×2 (09:13→21:34)
[2022-04-01] MEDS: METOPROLOL TARTRATE 100 MG TABLET PO ×2 (09:13→21:34)
[2022-04-01] MEDS: FUROSEMIDE 40 MG TABLET PO (09:13)
[2022-04-01] MEDS: SPIRONOLACTONE 25 MG TABLET PO (09:13)
[2022-04-01] MEDS: SERTRALINE 50 MG TABLET PO (09:14)
[2022-04-01 09:23] VITALS: BMI 60.7
--- NOTE | 2022-04-01 13:34 | PC.SOCIAL ---
Discharge planning: cripple worker continued to look for jail placement for pt. Called the following facilities from the [facility] contracted list provided by the insurance with the listed results: 1. [facility] - Left message with initial pt information and requesting call back if interested in receiving additional information. 2. [facility] - Left message with initial pt information and requesting call back if interested in receiving additional information. 3. [facility] - Left message with initial pt information and requesting call back if interested in receiving additional information. 4. [facility] - Left message with initial pt information and requesting call back if interested in receiving additional information. 5. [facility] - Left message with initial pt information and requesting call back if interested in receiving additional information. 6. [facility] - No longer contracted with [facility]. 7. [facility] - Left message with initial pt information and requesting call back if interested in receiving additional information. 8. [facility] - Outgoing message stated no beds available and not accepting MA or MA pending pt's at all. Not an option for this patient. 9. [facility] - Left message with initial pt information and requesting call back if interested in receiving additional information. 10. [facility] - Unable to assess pt as she is over their weight limit pf 300-350 pounds. 11. [facility] - Left message with initial pt information and requesting call back if interested in receiving additional information. 12. [facility] - Left message with initial pt information and requesting call back if interested in receiving additional information. 13. [facility] - Left message with initial pt information and requesting call back if interested in receiving additional information. 14. [facility] - Left message with initial pt information and requesting call back if interested in receiving additional information. 15. [facility] - No beds available. cripple worker to follow up as needed.
--- NOTE | 2022-04-01 14:04 | P.IMPN_ITS ---
Progress Note: A&P Assessment and plan (1) Weakness generalized: Problem details: - patient continues to make progress, requiring 2 person assist and EZ stand; requires TCU at this juncture but ultimate goal is to return to independent living - PT and OT following, + fall risk - Will need bariatric equipment - TCU placement still pending Status: Acute (2) Pressure ulcer of buttock: Problem details: - General surgery, I&D in OR 03/04. Dr. Rice will round 2x/week while patient is here - Zosyn initiated on admission, discontinued on 03/06 - Secondhand report is modest slow improvement Status: Acute (3) Self neglect: Problem details: Certain level of poor judgment in regard to self cares and self awareness which allowed her to progress to her current state. Did not think to call for help when she was on the floor for several days when she 1st presented. Status: Acute (4) Lymphedema associated with obesity: Problem details: - Continue to work on compression and lymphedema pumps Status: Acute (5) Diarrhea: Problem details: - not associated with abdominal pain or cramping - negative C diff, normal TSH - possibly iatrogenic (however, present prior to initiating Zoloft); not currently on antibiotics - has made diet changes, schedule imodium with hold parameters - given persistent symptoms, add cholestyramine 03/30 Status: Acute (6) Adjustment disorder: Problem details: - started zoloft 25mg on 03/13, increased to 50mg 03/24. Status: Acute (7) Acute respiratory failure with hypercapnia: Problem details: - Nocturnal, suggestive of obstructive sleep apnea. - Current BiPAP settings of 18 cm H20 iPap/10 cm H20 ePap, patient tolerates this well - Following gases intermittently Status: Acute (8) Vaginal bleeding: Problem details: - EUA, EMB and Pap smear 03/12/2022. Appreciate Gynecology support; please see final consult note from 03/19/2022. Pap and pathology 03/19/2022 as inconclusive - 03/19: Dr. Wagner recommend starting Provera 10mg QD for endometrial protection, until she can safely pursue other surgical options (D&C/hysterectomy, etc) - Progesterone initiated 03/21/22 Status: Acute (9) Incontinence associated dermatitis: Problem details: - continue williamson and prn loperamide for loose stools (c. diff negative), also working on diet changes to limit diarrhea - continue wound care as per surgery/Wound consult recommendations Status: Acute Subjective Date Seen: 04/01/22 Interval history: Daily Progress Note - Hospital #: 31 CC: generalized weakness, morbid obesity, lymphedema, pressure ulcers, AFlutter OVERNIGHT UPDATES FROM STAFF & MED, LAB, IMAGING UPDATES Small a significant gains made in her mobility continue. She has been in the wheelchair in the tong with scooting a bit with her legs. unable to stand from the wheelchair. able to have 1-2 assist to easy stand. doing self cares at the sink. ? Patient now can become upright with the EZ stand.? She can pivot and sit on the bedside commode.? All other transfers have been by sling.? Patient feels her spirits are about the same as they have been.? Multi disciplinary team meeting: -nutrition has been on top of calorie counts, and limited healthy menu. Down 15.4 lbs since 03/25/22. -PT and OT rounding with bedside instruction sheets available for patients continued rehab - posting sheets for tips and times. No TV during this work. -strict daily weights. Be supine and without extra weight on the bed during waking. -DME request to our 3rd [employer] party vendor for lymphedema pumps (IN USE!), as well as a walking sling (ORDERED) -trial of Lasix and spironolactone to help alleviate some of her edema, POTASSIUM AND CREATINE ARE STABLE. ON REPLACEMENT. -started and titrated Zoloft (now 50mg) -wound care is progressing and now is only needed M.W.F and prn Objective: Vitals: see above Lungs: Clear. Cardiac: no harsh murmurs; irregular Disposition/Potential discharge - Needs SNF Total time is 35 minutes with greater than 50% spent in counseling and coordination of care. Exam Const: Vital Signs, click to edit/add: Vital Signs - 24 hr 03/31/22 15:00 03/31/22 15:00 03/31/22 15:00 Temperature 98.4 F Pulse Rate Pulse Rate [Pulse Oximeter] 92 68 Respiratory Rate 18 18 18 Blood Pressure [Le ft Arm] 118/70 Pulse Oximetry 92 93 Oxygen Delivery Me thod Room Air BiPAP Room Air BiPAP Oxygen Flow Rate 0 0 Fraction of Inspir ed Oxygen 21 21 03/31/22 23:00 03/31/22 23:00 04/01/22 07:00 Temperature Pulse Rate Pulse Rate [Pulse Oximeter] 68 68 Respiratory Rate 18 18 18 Blood Pressure [Le ft Arm] Pulse Oximetry 95 Oxygen Delivery Me thod BiPAP Oxygen Flow Rate Fraction of Inspir ed Oxygen 21 04/01/22 07:00 04/01/22 09:12 04/01/22 12:49 Temperature Pulse Rate 93 Pulse Rate [Pulse Oximeter] Respiratory Rate 18 Blood Pressure [Le ft Arm] Pulse Oximetry 92 Oxygen Delivery Me thod Room Air Oxygen Flow Rate 0 Fraction of Inspir ed Oxygen
[2022-04-01 15:45] VITALS: RESP 18; O2SAT 94
[2022-04-01 15:46] VITALS: PULSE 68; RESP 18
--- NOTE | 2022-04-01 18:10 | PC.NURSE ---
End of Shift.? Pt is still very pleasant and cooperative. no pain.? she has no SL. ? Pt is up with 2 assist with EZ-stand.?and BSC.? Pt Ghosh, is patent and draining.? it was pungent and with sediment and was cloudy? leg wraps on her? extremities. Patient has been up in chair all shift. would like to look a wound on butt tomorrow.
[2022-04-01 19:00] VITALS: BP 150/97; PULSE 93; RESP 18; TEMP 36.9; O2SAT 92
[2022-04-01] MEDS: MELATONIN 3 MG TABLET PO (21:34)
[2022-04-01 22:26] VITALS: PULSE 93; RESP 22; O2SAT 92
--- NOTE | 2022-04-02 05:15 | PC.NURSE ---
[id number] Pt pleasant and cooperative, up in recliner at beginning of shift, EZ to commode and then bed, pt tolerates fair. BiPAP on during the night while asleep, pt tolerating well. denies pain this shift. vaginal bleeding noted, sepideh cares PRN. williamson patent and draining
[2022-04-02 07:25] VITALS: BP 141/64; PULSE 67; RESP 18; TEMP 36.7; O2SAT 97
[2022-04-02] MEDS: CHOLESTYRAMINE POWDER 4 GM PO ×2 (08:44→17:54)
[2022-04-02] MEDS: POTASSIUM CHLORIDE 10 MEQ CAPSULE ER 20 MEQ PO ×2 (08:44→17:54)
[2022-04-02] MEDS: SPIRONOLACTONE 25 MG TABLET PO (08:45)
[2022-04-02] MEDS: FUROSEMIDE 40 MG TABLET PO (08:45)
[2022-04-02] MEDS: LACTOBACILLUS ACIDOPHILUS 1 TABLET 1 TAB PO ×2 (08:45→17:54)
[2022-04-02 08:46] VITALS: PULSE 67
[2022-04-02] MEDS: SERTRALINE 50 MG TABLET PO (08:46)
[2022-04-02] MEDS: NYSTATIN POWDER 1 APPLIC TOPICAL (08:46)
[2022-04-02] MEDS: METOPROLOL TARTRATE 100 MG TABLET PO ×2 (08:46→21:50)
[2022-04-02] MEDS: APIXABAN 5 MG TABLET PO ×2 (08:46→21:51)
[2022-04-02] MEDS: DIGOXIN 250 MCG TABLET PO (08:46)
[2022-04-02] MEDS: MEDROXYPROGESTERONE 5 MG TABLET 10 MG PO (08:47)
[2022-04-02] MEDS: LOPERAMIDE HCL 2 MG CAPSULE PO (08:48)
[2022-04-02 15:05] VITALS: O2SAT 95
[2022-04-02 16:11] VITALS: PULSE 67; RESP 18
--- NOTE | 2022-04-02 17:19 | PC.SOCIAL ---
Discharge planning: Received call back from [facility], called regarding bed availability. They stated they do not have any beds available.
--- NOTE | 2022-04-02 18:36 | PC.NURSE ---
End of Shift.? Pt has been very pleasant today and she has been trying to help/ no pain.?she had vaginal bleeding and MD is aware. ? Pt is up with 2 assist with EZ-stand.?and? BSC.? Pt's Ghosh, is patent and draining.? it is still pungent and with sediment and was cloudy. ? leg wraps on her extremities, they where changes today. PT and OT and SS worked with her today/ she had one BM today/ .?
[2022-04-02 19:00] VITALS: BP 142/83; PULSE 67; RESP 20; TEMP 36.6; O2SAT 93
[2022-04-02] MEDS: MELATONIN 3 MG TABLET PO (21:50)
[2022-04-02 23:00] VITALS: RESP 20; O2SAT 93
--- NOTE | 2022-04-03 05:55 | PC.NURSE ---
Pt slept well during night, using Bipap.
[2022-04-03 07:58] VITALS: BP 145/87; PULSE 68; RESP 18; TEMP 36.7; O2SAT 95
[2022-04-03] MEDS: MEDROXYPROGESTERONE 5 MG TABLET 10 MG PO (09:45)
[2022-04-03] MEDS: SERTRALINE 50 MG TABLET PO (09:46)
[2022-04-03] MEDS: LACTOBACILLUS ACIDOPHILUS 1 TABLET 1 TAB PO ×3 (09:46→17:32)
[2022-04-03] MEDS: FUROSEMIDE 40 MG TABLET PO (09:46)
[2022-04-03] MEDS: LOPERAMIDE HCL 2 MG CAPSULE PO (09:46)
[2022-04-03] MEDS: POTASSIUM CHLORIDE 10 MEQ CAPSULE ER 20 MEQ PO ×2 (09:46→17:32)
[2022-04-03] MEDS: METOPROLOL TARTRATE 100 MG TABLET PO ×2 (09:46→21:17)
[2022-04-03] MEDS: APIXABAN 5 MG TABLET PO ×2 (09:46→21:17)
[2022-04-03 09:47] VITALS: PULSE 98
[2022-04-03] MEDS: DIGOXIN 250 MCG TABLET PO (09:47)
[2022-04-03] MEDS: CHOLESTYRAMINE POWDER 4 GM PO ×2 (09:48→17:32)
[2022-04-03] MEDS: SPIRONOLACTONE 25 MG TABLET PO (09:49)
[2022-04-03] MEDS: NYSTATIN POWDER 1 APPLIC TOPICAL ×2 (10:35→21:19)
--- NOTE | 2022-04-03 15:19 | PC.SOCIAL ---
Social Work Note- 04/03/2022 Discharge Planning Continued calls made to SNF facilities for placement for patient Called following SNFs who will consider placement. Information faxed [facility] [phone] Info faxed. Will consider for 04/08/2022 [facility] [phone] [place] Info faxed. They will look over and call back. They may have a room [facility] [phone] [place] direct [phone] Info faxed. Called back with questions - Phone number given for requested nurse to nurse. Considering Admission [facility] [phone] [place] Info faxed. One bariatric patient ahead of her. Possible opening next week The following SNFs message was left, no beds available or no answer [facility] [phone] No Beds [facility] [phone] Double check phone number on Website- correct number -Does not ring [facility] [phone] No Beds [facility] [phone] [facility] [phone] No Beds [facility] [phone] No Beds [facility] [phone] No Beds [facility] [phone] Left [facility] [phone] No Beds [facility] [phone] No Beds [facility] [phone] Anamika Faxed paperwork [facility] [phone] No answer [facility] [phone] Left msg [facility] [phone] Left msg [facility] [phone] Left wag [facility] Juan Avila [phone] No Beds [facility] [phone] to follow up as needed
--- NOTE | 2022-04-03 15:28 | PC.NURSE ---
Shift Summary: Patient pleasant and cooperative. Worked with PT/OT with use of ceiling sling to stand today, was able to stand and pivot to wheelchair. Per OT was able to propel self in wheelchair within room. Vitals stable and WNL. Denied pain, tolerating EZ stand and ceiling lift well. Encouraged fluid intake and exercise. SCDs on while in recliner.
[2022-04-03 16:30] VITALS: RESP 18; O2SAT 94
--- NOTE | 2022-04-03 18:50 | PC.NURSE ---
Pt up with EZ stand +2 person for use of commode and return to bed and/or chair. Denies pain. Pt expressed to automobile and property underwriter that she is feeling stronger in both arms and legs and has been more motivated with her rehab in last week.
[2022-04-03 19:53] VITALS: BP 143/64; PULSE 66; RESP 18; TEMP 37; O2SAT 95
[2022-04-03] MEDS: MELATONIN 3 MG TABLET PO (21:17)
[2022-04-04 00:03] VITALS: RESP 18; O2SAT 96
--- NOTE | 2022-04-04 05:24 | PC.NURSE ---
pt is alert and oriented. Wore BiPap all night. Catheter patent and secure. No BM this shift. Pt denies pain or discomfort. Pt slept most of shift. Wound is clean no prn care needed.
[2022-04-04 09:23] VITALS: RESP 22; O2SAT 94
[2022-04-04 09:33] VITALS: BP 148/96; PULSE 95; RESP 20; TEMP 36.6; O2SAT 96
[2022-04-04] MEDS: NYSTATIN POWDER 1 APPLIC TOPICAL ×2 (09:46→20:25)
[2022-04-04] MEDS: CHOLESTYRAMINE POWDER 4 GM PO ×2 (09:46→17:53)
[2022-04-04 09:47] VITALS: PULSE 95
[2022-04-04] MEDS: MEDROXYPROGESTERONE 5 MG TABLET 10 MG PO (09:47)
[2022-04-04] MEDS: DIGOXIN 250 MCG TABLET PO (09:47)
[2022-04-04] MEDS: LACTOBACILLUS ACIDOPHILUS 1 TABLET 1 TAB PO ×3 (09:47→17:53)
[2022-04-04] MEDS: APIXABAN 5 MG TABLET PO ×2 (09:48→20:25)
[2022-04-04] MEDS: POTASSIUM CHLORIDE 10 MEQ CAPSULE ER 20 MEQ PO ×2 (09:49→17:53)
[2022-04-04] MEDS: METOPROLOL TARTRATE 100 MG TABLET PO ×2 (09:49→20:25)
[2022-04-04] MEDS: SERTRALINE 50 MG TABLET PO (09:49)
[2022-04-04] MEDS: FUROSEMIDE 40 MG TABLET PO (09:49)
[2022-04-04] MEDS: SPIRONOLACTONE 25 MG TABLET PO (09:50)
[2022-04-04] MEDS: LOPERAMIDE HCL 2 MG CAPSULE PO (09:50)
--- NOTE | 2022-04-04 15:32 | PM.IMPN1 ---
Progress Note: A&P Assessment and plan (1) Weakness generalized: Problem details: - patient continues to make progress, requiring 1-2 person assist to the EZ stand; requires TCU at this juncture but ultimate goal is to return to independent living (I suspect a wheelchair accomodated apartment in assisted living is needed) - PT and OT following, + fall risk - Will need bariatric equipment - TCU placement still pending Status: Acute (2) Pressure ulcer of buttock: Problem details: - General surgery, I&D in OR 03/04. Dr. Rice will round 2x/week while patient is here - Zosyn initiated on admission, discontinued on 03/06 Status: Acute (3) Self neglect: Problem details: Certain level of poor judgment in regard to self cares and self awareness which allowed her to progress to her current state. Did not think to call for help when she was on the floor for several days when she 1st presented. Status: Acute (4) Vaginal bleeding: Problem details: - EUA, EMB and Pap smear 03/12/2022. Appreciate Gynecology support; please see final consult note from 03/19/2022. Pap and pathology 03/19/2022 as inconclusive - 03/19: Dr. Wagner recommend starting Provera 10mg QD for endometrial protection, until she can safely pursue other surgical options (D&C/hysterectomy, etc) - Progesterone initiated 03/21/22 - 04/02 vaginal bleeding as become more brisk - like a medium/moderate menses. no clots. not causing cramping. Status: Acute (5) Lymphedema associated with obesity: Problem details: - Continue to work on compression and lymphedema pumps Status: Acute (6) Diarrhea: Problem details: - not associated with abdominal pain or cramping - negative C diff, normal TSH - possibly iatrogenic (however, present prior to initiating Zoloft); not currently on antibiotics - has made diet changes, schedule imodium with hold parameters - given persistent symptoms, add cholestyramine 03/30 Status: Acute (7) Adjustment disorder: Problem details: - started zoloft 25mg on 03/13, increased to 50mg 03/24. Status: Acute (8) Acute respiratory failure with hypercapnia: Problem details: - Nocturnal, suggestive of obstructive sleep apnea. - Current BiPAP settings of 18 cm H20 iPap/10 cm H20 ePap, patient tolerates this well - Following gases intermittently Status: Acute (9) Incontinence associated dermatitis: Problem details: - continue williamson and prn loperamide for loose stools (c. diff negative), also working on diet changes to limit diarrhea - continue wound care as per surgery/Wound consult recommendations Status: Acute Subjective Date Seen: 04/03/22 Interval history: Daily Progress Note - Hospital Medicine #: 32 CC: generalized weakness, morbid obesity, lymphedema, pressure ulcers, AFlutter OVERNIGHT UPDATES FROM STAFF & MED, LAB, IMAGING UPDATES Small a significant gains made in her mobility continue. She has been in the wheelchair in the tong with scooting a bit with her legs. unable to stand from the wheelchair. able to have 1 assist to easy stand. doing self cares at the sink. ? Patient now can become nearly upright with the EZ stand.? She can pivot and sit on the bedside commode.?Patient feels her spirits are about the same as they have been.?There has been more vaginal bleeding over the last day than ever before. Multi disciplinary team meeting: -nutrition has been on top of calorie counts, and limited healthy menu. weights vary but slowly decreasing net total weight. -PT and OT rounding with bedside instruction sheets available for patients continued rehab - posting sheets for tips and times. No TV during this work. -strict daily weights. Be supine and without extra weight on the bed during waking. -DME request to our [employer]rd [employer] vendor for lymphedema pumps (IN USE!), as well as a walking sling (ORDERED) -trial of Lasix and spironolactone to help alleviate some of her edema, POTASSIUM AND CREATINE ARE STABLE. ON REPLACEMENT. -started and titrated Zoloft (now 50mg) -wound care is progressing and now is only needed M.W.F and prn Objective: Vitals: see above Lungs: Clear. Cardiac: no harsh murmurs; irregular large obese legs with chronic lymphedema Disposition/Potential discharge - Needs SNF Total time is 35 minutes with greater than 50% spent in counseling and coordination of care. Exam Const: Vital Signs, click to edit/add: Vital Signs - 24 hr 04/03/22 16:30 04/03/22 19:53 04/04/22 00:03 Temperature 98.6 F Pulse Rate Pulse Rate [Pulse Oximeter] 66 Respiratory Rate 18 18 18 Blood Pressure [Le ft Arm] 143/64 H Pulse Oximetry 94 95 96 Oxygen Delivery Me thod Room Air Room Air BiPAP Oxygen Flow Rate 8 Fraction of Inspir ed Oxygen 04/04/22 09:23 04/04/22 09:23 04/04/22 09:33 Temperature Pulse Rate Pulse Rate [Pulse Oximeter] Respiratory Rate 22 Blood Pressure [Le ft Arm] Pulse Oximetry 94 96 Oxygen Delivery Me thod Room Air Room Air Oxygen Flow Rate Fraction of Inspir ed Oxygen 21 04/04/22 09:33 04/04/22 09:47 Temperature 97.9 F Pulse Rate 95 Pulse Rate [Pulse Oximeter] 95 Respiratory Rate 20 Blood Pressure [Le ft Arm] 148/96 H Pulse Oximetry 96 Oxygen Delivery Me thod Room Air Oxygen Flow Rate Fraction of Inspir ed Oxygen
[2022-04-04 20:14] VITALS: BP 144/79; PULSE 85; RESP 18; TEMP 36.6; O2SAT 92
[2022-04-04] MEDS: MELATONIN 3 MG TABLET PO (20:26)
--- NOTE | 2022-04-04 22:14 | PC.NURSE ---
Shift [id number]- Patient up to chair this afternoon and for supper. She uses EZ stand to BSC and to bed. She has large amount of blood on chux and drips into commode (vaginal). Approximately 20ccs into commode after patient use for 10-15 minutes. updated- no new orders. She is using bipap for sleep.
[2022-04-05] VITALS (8 sets, daily range): BP systolic 145–152; BP diastolic 76–80; PULSE 69–74; RESP 18–22; TEMP 36.9; O2SAT 92–97
--- NOTE | 2022-04-05 06:43 | PC.NURSE ---
Status [id number] Alert and oriented. Nothing given for pain this shift. Wearing bipap while sleeping. Indwelling catheter patent with adequate output. Pt observed sleeping throughout night.
[2022-04-05 07:12] LABS: Hematocrit 37.8 % (33.0-51.0); Hemoglobin* 11.5 gm/dL (12.0-16.0); Mean Corpuscular HGB Conc 30 gm/dL (32-36); Mean Corpuscular Hemoglobin 27 pg (26-34); Mean Corpuscular Volume 88 fL (80-100); Platelet Count* 149 K/uL (140-440); White Blood Count* 3.09 K/uL (4.50-11.00)
[2022-04-05 07:22] LABS: Slide Review Reflex No
[2022-04-05 07:56] LABS: Chloride* 107 mmol/L (96-114); Sodium* 138 mmol/L (135-149)
[2022-04-05 07:57] LABS: Potassium* 5.1 mmol/L (3.6-5.1)
[2022-04-05 07:59] LABS: Carbon Dioxide* 31 mmol/L (20-32); Creatinine* 0.6 mg/dL (0.5-1.5); Est. Creatinine Clearance* 43.91; Estimated Glomerular Filt Rate 95 ml/min
[2022-04-05 08:00] LABS: Blood Urea Nitrogen* 7 mg/dL (7-30); Calcium* 8.8 mg/dL (8.4-10.6); Glucose* 83 mg/dL (60-115)
[2022-04-05] MEDS: METOPROLOL TARTRATE 100 MG TABLET PO ×2 (10:41→20:50)
[2022-04-05] MEDS: POTASSIUM CHLORIDE 10 MEQ CAPSULE ER 20 MEQ PO ×2 (10:41→18:20)
[2022-04-05 10:42] LABS: Digoxin* 0.8 ng/mL (0.8-2.0)
[2022-04-05] MEDS: NYSTATIN POWDER 1 APPLIC TOPICAL ×2 (10:42→21:12)
[2022-04-05] MEDS: LACTOBACILLUS ACIDOPHILUS 1 TABLET 1 TAB PO ×3 (10:42→18:20)
[2022-04-05] MEDS: FUROSEMIDE 40 MG TABLET PO (10:42)
[2022-04-05] MEDS: CHOLESTYRAMINE POWDER 4 GM PO ×2 (10:42→18:20)
[2022-04-05] MEDS: APIXABAN 5 MG TABLET PO ×2 (10:43→20:50)
[2022-04-05] MEDS: SERTRALINE 50 MG TABLET PO (10:43)
[2022-04-05] MEDS: LOPERAMIDE HCL 2 MG CAPSULE PO (10:43)
[2022-04-05] MEDS: MEDROXYPROGESTERONE 5 MG TABLET 10 MG PO (10:43)
[2022-04-05] MEDS: DIGOXIN 250 MCG TABLET PO (10:43)
[2022-04-05] MEDS: SPIRONOLACTONE 25 MG TABLET PO (10:44)
--- NOTE | 2022-04-05 12:46 | RESP.RT ---
Patient using BiPAP at night, states she slept well with it. During Day on room air, SaO2 92%.
--- NOTE | 2022-04-05 13:08 | PM.IMPN1 ---
Progress Note: A&P Assessment and plan (1) Weakness generalized: Problem details: - patient continues to make progress, requiring 1-2 person assist to the EZ stand; requires TCU at this juncture but ultimate goal is to return to independent living (I suspect a wheelchair accommodated apartment in assisted living is needed) - PT and OT following, + fall risk - Will need bariatric equipment - we are still seeking TCU placement, no bed available for her yet - PT and OT rounding with bedside instruction sheets available for patients continued rehab - posting sheets for tips and times. No TV during this work. - strict daily weights. Be supine and without extra weight on the bed during waking. Status: Acute (2) Pressure ulcer of buttock: Problem details: - General surgery, I&D in OR 03/04. Dr. Rice will round 2x/week while patient is here - Zosyn initiated on admission, discontinued on 03/06 - wound care is progressing and now is only needed M.W.F and prn Status: Acute (3) Self neglect: Problem details: Certain level of poor judgment in regard to self cares and self awareness which allowed her to progress to her current state. Did not think to call for help when she was on the floor for several days when she 1st presented. Status: Acute (4) Vaginal bleeding: Problem details: - EUA, EMB and Pap smear 03/12/2022. Appreciate Gynecology support; please see final consult note from 03/19/2022. Pap and pathology 03/19/2022 as inconclusive - 03/19: Dr. Wagner recommend starting Provera 10mg QD for endometrial protection, until she can safely pursue other surgical options (D&C/hysterectomy, etc) - Progesterone initiated 03/21/22 - 2/2 vaginal bleeding as become more brisk - like a medium/moderate menses. no clots. not causing cramping. - 2/5 vaginal bleeding increasing, I have a call out to Dr. Wagner from OB Gynecology who saw this patient originally in consultation for this concern. Will likely need to increase Provera. Status: Acute (5) Lymphedema associated with obesity: Problem details: - Continue to work on compression and lymphedema pumps - nutrition has been on top of calorie counts, and limited healthy menu. weights vary but slowly decreasing net total weight. - DME request to our 3rd [employer] party vendor for lymphedema pumps (IN USE!), as well as a walking sling (ORDERED) - continue trial of Lasix and spironolactone to help alleviate some of her edema, POTASSIUM AND CREATINE ARE STABLE. ON K REPLACEMENT. Status: Acute (6) Diarrhea: Problem details: - not associated with abdominal pain or cramping - negative C diff, normal TSH - possibly iatrogenic (however, present prior to initiating Zoloft); not currently on antibiotics - has made diet changes, schedule imodium with hold parameters - given persistent symptoms, add cholestyramine 03/30 - 04/05 improved, patient believes improvement coincided with d/c nutritional supplements. She is working on adequate dietary protein. Will hold off on nutritional supplements for now and ask nutrition to see her again tomorrow to see if she can adequately supplement with dietary sources at this point. Status: Acute (7) Adjustment disorder: Problem details: - started zoloft 25mg on 03/13, increased to 50mg 03/24. Status: Acute (8) Acute respiratory failure with hypercapnia: Problem details: - Nocturnal, suggestive of obstructive sleep apnea. - Current BiPAP settings of 18 cm H20 iPap/10 cm H20 ePap, patient tolerates this well - Following gases intermittently Status: Acute (9) Incontinence associated dermatitis: Problem details: - continue williamson and prn loperamide for loose stools (c. diff negative), also working on diet changes to limit diarrhea - continue wound care as per surgery/Wound consult recommendations Status: Acute Subjective Time Seen by Provider: 12:35 Date Seen: 04/05/22 Interval history: Emily had more vaginal bleeding overnight. She denies cramping, but notes that it feels like there is a hallow feeling much like she would get before her period years ago. She thinks starting the SCDs that involve the thighs also increased her vaginal bleeding. She is currently on 10 mg of Provera daily. She has been on that for about 2 weeks now. Her hemoglobin this morning is 11.5, down from 12.1 five days ago. She notes that her new diet is going well and she is finding things that she likes despite the limited menu. She has been trying to get some protein at every meal and recently stopped drinking the [employer] nutritional supplements and noticed that since she stopped those her diarrhea has been much better. She asked if she really needs to restart them and wonders if she can supplement enough with diet alone at this point. Exam Narrative: Exam Narrative: General: No acute distress. Awake, alert, oriented. Appears leaner in the face. Cardiovascular: Irregularly irregular. No murmurs, gallops, or rubs. Respiratory: Clear to auscultation bilaterally. No wheezes or crackles. Extremities: Chronic lymphedema, foot calf thigh SCDs in place and turned on. Const: Vital Signs, click to edit/add: Vital Signs - 24 hr 04/04/22 16:00 04/04/22 20:14 04/04/22 23:00 Temperature 98 F Pulse Rate Pulse Rate [Pulse Oximeter] 85 Respiratory Rate 18 Blood Pressure [Ri ght Arm] 144/79 H Pulse Oximetry 92 Oxygen Delivery Me thod Room Air Room Air BiPAP Fraction of Inspir ed Oxygen 04/05/22 01:35 04/05/22 10:43 04/05/22 07:00 Temperature Pulse Rate 74 Pulse Rate [Pulse Oximeter] Respiratory Rate 18 Blood Pressure [Ri ght Arm] Pulse Oximetry 97 Oxygen Delivery Me thod Room Air Fraction of Inspir ed Oxygen 04/05/22 12:44 04/05/22 12:44 Temperature Pulse Rate Pulse Rate [Pulse Oximeter] Respiratory Rate 22 Blood Pressure [Ri ght Arm] Pulse Oximetry 92 Oxygen Delivery Me thod Room Air Fraction of Inspir ed Oxygen 21 Documenting provider has reviewed patient's vital signs: yes Labs Labs: Laboratory Results - last 24 hr 04/05/22 04/05/22 04/05/22 04:00 05:33 05:33 WBC 3.09 L RBC 4.30 Hgb 11.5 L Hct 37.8 MCV 88 MCH 27 MCHC 30 L Plt Count 149 Sodium 138 Potassium 5.1 Chloride 107 Carbon Dioxide 31 BUN 7 Creatinine 0.6 Estimated Creat Clear 43.91 Estimated GFR 95 Glucose 83 Calcium 8.8 Digoxin 0.8
--- NOTE | 2022-04-05 14:04 | PM.GSPN ---
Subjective Subjective Date Seen: 04/05/22 Interval history: Patient overall doing well. Feels like she is getting stronger. Her diarrhea is under control and she is tolerating a regular diet. No concern for her wounds and no pain of the buttock. Exam Narrative: Exam Narrative: Gen: Alert and oriented, no acute distress. : R buttock wound decreased in size with new areas of epithelization. Wound bed with healthy granulation tissue. No concern for infection. Const: Vital Signs, click to edit/add: Vital Signs - 24 hr 04/04/22 16:00 04/04/22 20:14 04/04/22 23:00 Temperature 98 F Pulse Rate Pulse Rate [Pulse Oximeter] 85 Respiratory Rate 18 Blood Pressure [Ri ght Arm] 144/79 H Pulse Oximetry 92 Oxygen Delivery Me thod Room Air Room Air BiPAP Fraction of Inspir ed Oxygen 04/05/22 01:35 04/05/22 10:43 04/05/22 07:00 Temperature Pulse Rate 74 Pulse Rate [Pulse Oximeter] Respiratory Rate 18 Blood Pressure [Ri ght Arm] Pulse Oximetry 97 Oxygen Delivery Me thod Room Air Fraction of Inspir ed Oxygen 04/05/22 12:44 04/05/22 12:44 Temperature Pulse Rate Pulse Rate [Pulse Oximeter] Respiratory Rate 22 Blood Pressure [Ri ght Arm] Pulse Oximetry 92 Oxygen Delivery Me thod Room Air Fraction of Inspir ed Oxygen 21 Progress Note: A&P Assessment and plan (1) Stage III pressure ulcer of buttock: Problem details: stage III right buttock pressure ulcer. She also has a stage II left buttock pressure ulcer. Alternating pressure mattress in place. Status: Acute Assessment and Plan: Wound continues to heal without any issues. Agree with continuing to do p.r.n. dressings of Medihoney and outer Mepilex. Will check on the wound again in 1 week, if patient continues to be inpatient. For any acute concerns please contact the production control coordinator surgeon.
--- NOTE | 2022-04-05 20:03 | PC.NURSE ---
VSS AND AFEBRILE. UP WITH EZ STAND TO WHEELCHAIR AND RECLINER. CONTINUES TO HAVE LARGE AMOUNT BLOODY VAGINAL DRAINAGE. MD UPDATED TWICE ON DRAINAGE. DR. COELHO IN ROOM AND DRESSING CHANGE TO BUTTOCKS COMPLETED.
[2022-04-06 06:28] LABS: Hemoglobin* 11.3 gm/dL (12.0-16.0)
--- NOTE | 2022-04-06 07:04 | PC.NURSE ---
Status [id number] Alert and oriented. Denies pain. VSS on room air. Wearing bipap overnight. Indwelling catheter patent and adequate output. Continues with vaginal bleeding, order to check hemoglobin this AM. Pt observed resting well throughout night.
[2022-04-06 07:25] VITALS: BP 155/116; PULSE 74; RESP 20; TEMP 36.7; O2SAT 98
[2022-04-06] MEDS: CHOLESTYRAMINE POWDER 4 GM PO ×2 (08:49→18:11)
[2022-04-06] MEDS: DIGOXIN 250 MCG TABLET PO (08:50)
[2022-04-06] MEDS: POTASSIUM CHLORIDE 10 MEQ CAPSULE ER 20 MEQ PO ×2 (08:50→18:11)
[2022-04-06] MEDS: SERTRALINE 50 MG TABLET PO (08:50)
[2022-04-06] MEDS: METOPROLOL TARTRATE 100 MG TABLET PO ×2 (08:50→21:04)
[2022-04-06] MEDS: FUROSEMIDE 40 MG TABLET PO (08:51)
[2022-04-06] MEDS: APIXABAN 5 MG TABLET PO ×2 (08:51→21:04)
[2022-04-06] MEDS: LACTOBACILLUS ACIDOPHILUS 1 TABLET 1 TAB PO ×3 (08:51→18:12)
[2022-04-06] MEDS: NYSTATIN POWDER 1 APPLIC TOPICAL ×2 (08:51→21:04)
[2022-04-06] MEDS: LOPERAMIDE HCL 2 MG CAPSULE PO (08:52)
[2022-04-06] MEDS: SPIRONOLACTONE 25 MG TABLET PO (08:52)
[2022-04-06] MEDS: MEDROXYPROGESTERONE 5 MG TABLET 20 MG PO ×2 (09:00→21:04)
[2022-04-06 10:40] VITALS: BMI 58.6
--- NOTE | 2022-04-06 11:38 | PC.SOCIAL ---
Addendum entered by ERNIE Cavanaugh 04/06/22 12:34: Received call back from Franco at [facility] [phone], stating they are evaluating pt for a shared room that will be available by the end of the week. Provided him with requested information on group home care plan for coverage by [employer] which pt has already applied for. Franco to call back with decision on admit. utility maintenance worker to follow up as needed. Original Note: Discharge planning: utility maintenance worker continued looking for placement at a half-way facility for pt. Called the following facilities where information was faxed on 04/03/22 to follow up on decision for admit. 1. [facility] [phone] : left message requesting call back with decision on admit. 2. [facility] [phone] : left message requesting call back with decision on admit. 3. [facility] [phone] Spoke with Westley ([phone] ) who states the referral is being reviewed and he will call back with decision on admit. 4. [facility] [phone] Spoke with Izabella who states they have not yet made a decision on admit but will call back when this decision is made. utility maintenance worker to follow up as needed.
[2022-04-06 15:00] VITALS: O2SAT 97
--- NOTE | 2022-04-06 15:13 | P.IMPN_ITS ---
Progress Note: A&P Assessment and plan (1) Vaginal bleeding: Problem details: - on apixaban for afib. - EUA, EMB and Pap smear 03/12/2022. Appreciate Gynecology support; please see final consult note from 03/19/2022. Pap and pathology 03/19/2022 as inconclusive - 03/19: Dr. Wagner recommend starting Provera 10mg QD for endometrial protection, until she can safely pursue other surgical options (D&C/hysterectomy, etc) - Progesterone initiated 03/21/22 - / vaginal bleeding as become more brisk - like a medium/moderate menses. no clots. not causing cramping. - 04/05 vaginal bleeding increasing, I have a call out to Dr. Wagner from [facility] who saw this patient originally in consultation for this concern. Will likely need to increase Provera. - 04/06 Dr. Edgar Galloway recommended increasing provera to 20mg BID - done. If Emily is still bleeding significantly in 48 hours, will need transfer for uterine artery embolization. Status: Acute (2) Weakness generalized: Problem details: - patient continues to make progress, although it is limited. Requiring 1-2 person assist to the EZ stand; using WC. Requires TCU at this juncture but ultimate goal is to return to independent living (I suspect a wheelchair accommodated apartment in assisted living is needed) - PT and OT following, + fall risk - Will need bariatric equipment - we are still seeking TCU placement, no bed available for her yet - PT and OT rounding with bedside instruction sheets available for patients continued rehab - posting sheets for tips and times. No TV during this work. - strict daily weights. Be supine and without extra weight on the bed during waking. Status: Acute (3) Pressure ulcer of buttock: Problem details: - General surgery, I&D in OR 03/04. Dr. Rice will round 2x/week while patient is here - Zosyn initiated on admission, discontinued on 03/06 - wound care is progressing and now is only needed M.W.F and prn Status: Acute (4) Self neglect: Problem details: Certain level of poor judgment in regard to self cares and self awareness which allowed her to progress to her current state. Did not think to call for help when she was on the floor for several days when she 1st presented. Status: Acute (5) Lymphedema associated with obesity: Problem details: - Continue to work on compression and lymphedema pumps - nutrition has been on top of calorie counts, and limited healthy menu. weights vary but slowly decreasing net total weight. - DME request to our [employer] vendor for lymphedema pumps (IN USE!), as well as a walking sling (ORDERED) - continue trial of Lasix and spironolactone to help alleviate some of her edema, POTASSIUM AND CREATINE ARE STABLE. ON K REPLACEMENT. Status: Acute (6) Diarrhea: Problem details: - not associated with abdominal pain or cramping - negative C diff, normal TSH - possibly iatrogenic (however, present prior to initiating Zoloft); not currently on antibiotics - has made diet changes, schedule imodium with hold parameters - given persistent symptoms, add cholestyramine 03/30 - 04/05 improved, patient believes improvement coincided with d/c nutritional supplements. She is working on adequate dietary protein. Will hold off on nutritional supplements for now and ask nutrition to see her again tomorrow to see if she can adequately supplement with dietary sources at this point. Status: Acute (7) Adjustment disorder: Problem details: - started zoloft 25mg on 03/13, increased to 50mg 03/24. Status: Acute (8) Acute respiratory failure with hypercapnia: Problem details: - Nocturnal, suggestive of obstructive sleep apnea. - Current BiPAP settings of 18 cm H20 iPap/10 cm H20 ePap, patient tolerates this well - Following gases intermittently Status: Acute (9) Incontinence associated dermatitis: Problem details: - continue williamson and prn loperamide for loose stools (c. diff negative), also working on diet changes to limit diarrhea - continue wound care as per surgery/Wound consult recommendations Status: Acute (10) Atrial flutter with rapid ventricular response: Problem details: - Rate controlled on digoxin and metoprolol, no acute cardiovascular issues currently - Eliquis for prophylaxis - on admission (03/02) patient placed on a diltiazem GTT - transitioned well to oral metoprolol and digoxin, oral Eliquis for ppx - discussed case with Dr. Medina of Cardiology on 03/06: Patient remains hemodynamically stable and rate controlled at this time, outpatient cardiology follow-up - TTE obtained 03/03 Final Impressions: 1. Technically very limited exam. 2. Normal LV size, normal global systolic function with an estimated EF of 60 - 65%. 3. Enlarged RV w/ reduced function, incompletely visualized. 4. Moderately enlarged left atrium. 5. No hemodynamically significant valve disease detected. Status: Acute Subjective Time Seen by Provider: 11:08 Date Seen: 04/06/22 Interval history: Emily has had increased vaginal bleeding overnight. Therapy noted that she would have a big gush of vaginal bleeding with standing that would immediately soak through a pad and leave a puddle on the floor. Emily says she feels a bit tired, but overall is just sick of having things like this come up. She felt like she was finally seeing overall improvement, and this is a big set back for her. Exam Narrative: Exam Narrative: General: No acute distress. Awake, alert, oriented. No pallor. No jaundice. Oropharynx: Clear. Mucous membranes moist. Cardiovascular: Regular rate and rhythm. No murmurs, gallops, or rubs. Respiratory: Clear to auscultation bilaterally. No wheezes or crackles. Extremities: Lymphedema unchanged. Const: Vital Signs, click to edit/add: Vital Signs - 24 hr 04/05/22 20:50 04/05/22 23:00 04/05/22 23:00 Temperature Pulse Rate [Pulse Oximeter] 69 69 Respiratory Rate 22 18 18 Blood Pressure [Le ft Arm] 152/80 H Blood Pressure [Ri ght Arm] Pulse Oximetry 96 96 Oxygen Delivery Me thod Room Air Room Air Fraction of Inspir ed Oxygen 04/06/22 07:25 04/06/22 07:25 04/06/22 09:52 Temperature 98.0 F Pulse Rate [Pulse Oximeter] 74 Respiratory Rate 20 Blood Pressure [Le ft Arm] Blood Pressure [Ri ght Arm] 155/116 H Pulse Oximetry 98 98 Oxygen Delivery Me thod Room Air Room Air Fraction of Inspir ed Oxygen 21 Labs Labs: Laboratory Results - last 24 hr 04/06/22 06:04 Hgb 11.3 L
--- NOTE | 2022-04-06 18:25 | PC.NURSE ---
Pt calm and cooperative today. Pt up with Ez Stand.Pt up in wheelchair for am cares/therapy. Pt up in recliner for rest of shift. Pt has increased vaginal bleeding.
[2022-04-06 19:58] VITALS: BP 143/94; PULSE 68; RESP 20; TEMP 36.4; O2SAT 97
[2022-04-06] MEDS: MELATONIN 3 MG TABLET PO (21:03)
[2022-04-06 23:00] VITALS: RESP 20; O2SAT 97
--- NOTE | 2022-04-07 05:25 | PC.NURSE ---
[id number]: Patient pleasant and cooperative. A2 w/EZ stand, tolerates well. Ghosh patent. Denies pain. Continues with known vaginal bleeding. BiPAP on at noc. Appeared to rest well during noc.
[2022-04-07 09:00] VITALS: BP 137/78; PULSE 80; RESP 20; TEMP 36.6; O2SAT 97
[2022-04-07 09:31] VITALS: PULSE 80
[2022-04-07] MEDS: DIGOXIN 250 MCG TABLET PO (09:31)
[2022-04-07] MEDS: MEDROXYPROGESTERONE 5 MG TABLET 20 MG PO ×2 (09:32→20:26)
[2022-04-07] MEDS: APIXABAN 5 MG TABLET PO ×2 (09:32→20:26)
[2022-04-07] MEDS: METOPROLOL TARTRATE 100 MG TABLET PO ×2 (09:32→20:26)
[2022-04-07] MEDS: LACTOBACILLUS ACIDOPHILUS 1 TABLET 1 TAB PO ×3 (09:32→17:29)
[2022-04-07] MEDS: CHOLESTYRAMINE POWDER 4 GM PO ×2 (09:32→17:29)
[2022-04-07] MEDS: FUROSEMIDE 40 MG TABLET PO (09:32)
[2022-04-07] MEDS: SPIRONOLACTONE 25 MG TABLET PO (09:33)
[2022-04-07] MEDS: SERTRALINE 50 MG TABLET PO (09:33)
[2022-04-07] MEDS: NYSTATIN POWDER 1 APPLIC TOPICAL ×2 (09:33→20:27)
[2022-04-07] MEDS: POTASSIUM CHLORIDE 10 MEQ CAPSULE ER 20 MEQ PO ×2 (09:34→17:29)
[2022-04-07] MEDS: LOPERAMIDE HCL 2 MG CAPSULE PO (09:34)
[2022-04-07 10:31] LABS: Hemoglobin* 12.5 gm/dL (12.0-16.0)
--- NOTE | 2022-04-07 10:55 | PC.SOCIAL ---
Addendum entered by ERNIE Cavanaugh 04/08/22 15:50: Discussed this challenges to discharge regarding placement for this patient with [facility] Coordinator Carie Weller during multiple phone calls. Carie emailed an extended list of [facility] contracted nursing homes within 100 [address] of [place] for social worker clinical to contact regarding bed availability and ability to meet pt's needs. Carie states she is unable to provide a list of facilities that accept bariatric pts, wound care or bipap use. facilities maintenance worker to continue to call facilities and look for placement when pt is ready for discharge. Original Note: Discharge planning: Received faxed request for discharge planning update and offering assistance with discharge barriers from pt's insurance Discharge Sales Service Assistant, Carie Weller at [phone]. facilities maintenance worker has previously spoken with Carie who only provided a short list of contracted senior care facilities. Called and left message for Carie requesting a call back with assistance in discharge planning. Awaiting call back.
--- NOTE | 2022-04-07 14:24 | PM.IMPN1 ---
Progress Note: A&P Assessment and plan (1) Vaginal bleeding: Problem details: - on apixaban for afib. - EUA, EMB and Pap smear 03/12/2022. Appreciate Gynecology support; please see final consult note from 03/19/2022. Pap and pathology 03/19/2022 as inconclusive - 03/19: Dr. Wagner recommend starting Provera 10mg QD for endometrial protection, until she can safely pursue other surgical options (D&C/hysterectomy, etc) - Progesterone initiated 03/21/22 - 2/ vaginal bleeding as become more brisk - like a medium/moderate menses. no clots. not causing cramping. - 04/05 vaginal bleeding increasing, I have a call out to Dr. Wagner from [facility] who saw this patient originally in consultation for this concern. Will likely need to increase Provera. - 04/06 Dr. Edgar Galloway recommended increasing provera to 20mg BID - done. If Emily is still bleeding significantly in 48 hours, will need transfer for uterine artery embolization. - Hgb stable at 12.5 today. Status: Acute (2) Weakness generalized: Problem details: - patient continues to make progress, although it is limited. Requiring 1-2 person assist to the EZ stand; using WC. Requires TCU at this juncture but ultimate goal is to return to independent living (I suspect a wheelchair accommodated apartment in assisted living is needed) - PT and OT following, + fall risk - Will need bariatric equipment - we are still seeking TCU placement, no bed available for her yet - PT and OT rounding with bedside instruction sheets available for patients continued rehab - posting sheets for tips and times. No TV during this work. - strict daily weights. Be supine and without extra weight on the bed during waking. Status: Acute (3) Pressure ulcer of buttock: Problem details: - General surgery, I&D in OR 03/04. Dr. Rice will round 2x/week while patient is here - Zosyn initiated on admission, discontinued on 03/06 - wound care is progressing and now is only needed M.W.F and prn Status: Acute (4) Self neglect: Problem details: Certain level of poor judgment in regard to self cares and self awareness which allowed her to progress to her current state. Did not think to call for help when she was on the floor for several days when she 1st presented. Status: Acute (5) Lymphedema associated with obesity: Problem details: - Continue to work on compression and lymphedema pumps - nutrition has been on top of calorie counts, and limited healthy menu. weights vary but slowly decreasing net total weight. - DME request to our [employer]rd [employer] vendor for lymphedema pumps (IN USE!), as well as a walking sling (ORDERED) - continue trial of Lasix and spironolactone to help alleviate some of her edema, POTASSIUM AND CREATINE ARE STABLE. ON K REPLACEMENT. Status: Acute (6) Diarrhea: Problem details: - not associated with abdominal pain or cramping - negative C diff, normal TSH - possibly iatrogenic (however, present prior to initiating Zoloft); not currently on antibiotics - has made diet changes, schedule imodium with hold parameters - given persistent symptoms, add cholestyramine 03/30 - 04/05 improved, patient believes improvement coincided with d/c nutritional supplements and refuses any further supplements. She is working on adequate dietary protein. - 04/07 Nutrition spoke with patient about protein snacks, etc. instead of nutritional supplements. Status: Acute (7) Adjustment disorder: Problem details: - started zoloft 25mg on 03/13, increased to 50mg 03/24. Status: Acute (8) Acute respiratory failure with hypercapnia: Problem details: - Nocturnal, suggestive of obstructive sleep apnea. - Current BiPAP settings of 18 cm H20 iPap/10 cm H20 ePap, patient tolerates this well - Following gases intermittently Status: Acute (9) Incontinence associated dermatitis: Problem details: - continue williamson and prn loperamide for loose stools (c. diff negative), also working on diet changes to limit diarrhea - continue wound care as per surgery/Wound consult recommendations Status: Acute (10) Atrial flutter with rapid ventricular response: Problem details: - Rate controlled on digoxin and metoprolol, no acute cardiovascular issues currently - Eliquis for prophylaxis - on admission (03/02) patient placed on a diltiazem GTT - transitioned well to oral metoprolol and digoxin, oral Eliquis for ppx - discussed case with Dr. Medina of Cardiology on 03/06: Patient remains hemodynamically stable and rate controlled at this time, outpatient cardiology follow-up - TTE obtained 03/03 Final Impressions: 1. Technically very limited exam. 2. Normal LV size, normal global systolic function with an estimated EF of 60 - 65%. 3. Enlarged RV w/ reduced function, incompletely visualized. 4. Moderately enlarged left atrium. 5. No hemodynamically significant valve disease detected. Status: Acute Subjective Time Seen by Provider: 12:15 Date Seen: 04/07/22 Interval history: No complaints today. She is concerned about vaginal bleeding; has no pain. Nurse reports increased vaginal bleeding yet today. I spoke with Emily about Dr. Edgar Galloway's recommendations. Exam Narrative: Exam Narrative: General: No acute distress. Awake, alert, oriented. No pallor. No jaundice. Oropharynx: Clear. Mucous membranes moist. Cardiovascular: Irregularly irregular. No murmurs, gallops, or rubs. Const: Vital Signs, click to edit/add: Vital Signs - 24 hr 04/06/22 15:00 04/06/22 19:58 04/06/22 23:00 Temperature 97.6 F Pulse Rate Pulse Rate [Pulse Oximeter] 68 Respiratory Rate 20 20 Blood Pressure [Le ft Arm] 143/94 H Pulse Oximetry 97 97 97 [facility] Room Air Room Air 04/07/22 09:31 04/07/22 09:00 04/07/22 09:00 Temperature Pulse Rate 80 Pulse Rate [Pulse Oximeter] 80 Respiratory Rate 20 Blood Pressure [Le ft Arm] Pulse Oximetry 97 [facility]xygen Delivery [facility] 04/07/22 09:00 Temperature 97.8 F Pulse Rate Pulse Rate [Pulse Oximeter] 80 Respiratory Rate 20 Blood Pressure [Le ft Arm] 137/78 Pulse Oximetry 97 Oxygen Delivery [facility] Labs Labs: Laboratory Results - last 24 hr 04/07/22 10:22 Hgb 12.5
--- NOTE | 2022-04-07 15:28 | PC.NURSE ---
VSS AND AFEBRILE. TOLERATING REGULAR DIET. NO C/O N/V OR PAIN. UP WITH EZ STAND TO WHEELCHAIR AND RECLINER. LOPEZ IN PLACE. CONTINUES WITH LARGE AMOUNT BLOODY VAGINAL DRAINAGE. AWARE.
[2022-04-07 20:00] VITALS: BP 123/62; PULSE 70; RESP 18; TEMP 36.4; O2SAT 92
[2022-04-07] MEDS: MELATONIN 3 MG TABLET PO (20:44)
--- NOTE | 2022-04-07 22:26 | PC.NURSE ---
Shift [id number]- Patient is up to chair this afternoon and evening. Uses EZ stand to transfer and does PM cares independently. She is not dripping vaginal blood with transfer, though she still is having vaginal bleeding. Uses Bipap to sleep.
[2022-04-07 23:00] VITALS: RESP 16; O2SAT 94
[2022-04-08] VITALS (7 sets, daily range): BP systolic 139–148; BP diastolic 78–98; PULSE 69–112; RESP 16–18; TEMP 36.7–37.1; O2SAT 94–98
--- NOTE | 2022-04-08 04:49 | PC.NURSE ---
Addendum entered by Hortencia Rivera RN 04/08/22 06:26: moderate amounts of vaginal bleeding, 1 1/2 blue chux covered in blood Original Note: [id number] Pt slept during night, wanted to take off bipap at 0335, denies pain.
[2022-04-08 06:41] LABS: Hemoglobin* 11.2 gm/dL (12.0-16.0)
[2022-04-08] MEDS: APIXABAN 5 MG TABLET PO ×2 (09:46→19:45)
[2022-04-08] MEDS: SERTRALINE 50 MG TABLET PO (09:46)
[2022-04-08] MEDS: DIGOXIN 250 MCG TABLET PO (09:46)
[2022-04-08] MEDS: METOPROLOL TARTRATE 100 MG TABLET PO ×2 (09:47→19:44)
[2022-04-08] MEDS: MEDROXYPROGESTERONE 5 MG TABLET 20 MG PO ×2 (09:47→19:45)
[2022-04-08] MEDS: CHOLESTYRAMINE POWDER 4 GM PO ×2 (09:47→17:56)
[2022-04-08] MEDS: SPIRONOLACTONE 25 MG TABLET PO (09:48)
[2022-04-08] MEDS: LACTOBACILLUS ACIDOPHILUS 1 TABLET 1 TAB PO ×3 (09:53→17:56)
[2022-04-08] MEDS: FUROSEMIDE 40 MG TABLET PO (09:53)
[2022-04-08] MEDS: POTASSIUM CHLORIDE 10 MEQ CAPSULE ER 20 MEQ PO ×2 (09:53→17:56)
[2022-04-08] MEDS: NYSTATIN POWDER 1 APPLIC TOPICAL ×2 (09:58→21:18)
--- NOTE | 2022-04-08 10:57 | P.IMPN_ITS ---
Progress Note: A&P Assessment and plan (1) Vaginal bleeding: Problem details: - on apixaban for Aflutter - still in Aflutter by ECG this am; rate controlled. - EUA, EMB and Pap smear 03/12/2022. Appreciate Gynecology support; please see final consult note from 03/19/2022. Pap and pathology 03/19/2022 as inconclusive - 03/19: Dr. Wagner recommend starting Provera 10mg QD for endometrial protection, until she can safely pursue other surgical options (D&C/hysterectomy, etc) - Progesterone initiated 03/21/22 - 04/02 vaginal bleeding as become more brisk - like a medium/moderate menses. no clots. not causing cramping. - 04/05 vaginal bleeding increasing, I have a call out to Dr. Wagner from [facility] who saw this patient originally in consultation for this concern. Will likely need to increase Provera. - 04/06 Dr. Edgar Galloway recommended increasing provera to 20mg BID. Signficant reduction in flow noted 04/08/22 plan: hysterectomy in the months ahead; short-term artery embolization (would require a day trip to IR). Status: Acute (2) Weakness generalized: Problem details: - patient continues to make progress, although it is limited. Requiring 1-2 person assist to the EZ stand; using WC. Requires TCU at this juncture but ultimate goal is to return to independent living (I suspect a wheelchair accommodated apartment in assisted living is needed) - PT and OT following, + fall risk - Will need bariatric equipment - we are still seeking TCU placement, no bed available for her yet - PT and OT rounding with bedside instruction sheets available for patients continued rehab - posting sheets for tips and times. No TV during this work. - strict daily weights. Be supine and without extra weight on the bed during waking. DOWN 44LBS OF 04/08/22 Status: Acute (3) Pressure ulcer of buttock: Problem details: - General surgery, I&D in OR 03/04. Dr. Rice will round 2x/week while patient is here - Zosyn initiated on admission, discontinued on 03/06 - wound care is progressing and now is only needed M.W.F and prn Status: Acute (4) Self neglect: Problem details: Certain level of poor judgment in regard to self cares and self awareness which allowed her to progress to her current state. Did not think to call for help when she was on the floor for several days when she 1st presented. Status: Acute (5) Lymphedema associated with obesity: Problem details: - Continue to work on compression and lymphedema pumps - nutrition has been on top of calorie counts, and limited healthy menu. weights vary but slowly decreasing net total weight. - DME request to our [employer] vendor for lymphedema pumps (IN USE!), as well as a walking sling (ORDERED) - continue trial of Lasix and spironolactone to help alleviate some of her edema, POTASSIUM AND CREATINE ARE STABLE. ON K REPLACEMENT. Status: Acute (6) Diarrhea: Problem details: - not associated with abdominal pain or cramping - negative C diff, normal TSH - possibly iatrogenic (however, present prior to initiating Zoloft); not currently on antibiotics - has made diet changes, schedule imodium with hold parameters - given persistent symptoms, add cholestyramine 03/30 - 04/05 improved, patient believes improvement coincided with d/c nutritional supplements and refuses any further supplements. She is working on adequate dietary protein. - 04/07 Nutrition spoke with patient about protein snacks, etc. instead of nutritional supplements. Status: Acute (7) Adjustment disorder: Problem details: - started zoloft 25mg on 03/13, increased to 50mg 03/24. Status: Acute (8) Acute respiratory failure with hypercapnia: Problem details: - Nocturnal, suggestive of obstructive sleep apnea. - Current BiPAP settings of 18 cm H20 iPap/10 cm H20 ePap, patient tolerates this well - Following gases intermittently Status: Acute (9) Incontinence associated dermatitis: Problem details: - continue williamson and prn loperamide for loose stools (c. diff negative), also working on diet changes to limit diarrhea - continue wound care as per surgery/Wound consult recommendations Status: Acute (10) Atrial flutter with rapid ventricular response: Problem details: - Rate controlled on digoxin and metoprolol, no acute cardiovascular issues currently - Eliquis for prophylaxis - on admission (03/02) patient placed on a diltiazem GTT - transitioned well to oral metoprolol and digoxin, oral Eliquis for ppx - discussed case with Dr. Medina of Cardiology on 1/6: Patient remains hemodynamically stable and rate controlled at this time, outpatient cardiology follow-up - TTE obtained 03/03 Final Impressions: 1. Technically very limited exam. 2. Normal LV size, normal global systolic function with an estimated EF of 60 - 65%. 3. Enlarged RV w/ reduced function, incompletely visualized. 4. Moderately enlarged left atrium. 5. No hemodynamically significant valve disease detected. Status: Acute Subjective Date Seen: 04/08/22 Interval history: Daily Progress Note - Hospital Medicine Day #: 38 CC: generalized weakness, morbid obesity, lymphedema, pressure ulcers, AFlutter, dysfunctional uterine bleeding OVERNIGHT UPDATES FROM STAFF & MED, LAB, IMAGING UPDATES Small a significant gains made in her mobility continue. She has been in the wheelchair in the tong with scooting a bit with her legs. unable to stand from the wheelchair. able to have 1 assist to easy stand. doing self cares at the sink. ? Patient now can become nearly upright with the EZ stand.? She can pivot and sit on the bedside commode.?Patient feels her spirits are about the same as they have been.?There has been more vaginal bleeding over the last 3-4 days. Multi disciplinary team meeting: -nutrition has been on top of calorie counts, and limited healthy menu. weights vary but slowly decreasing net total weight. 44lbs as of 04/08 -PT and OT rounding with bedside instruction sheets available for patients continued rehab - posting sheets for tips and times. No TV during this work. -strict daily weights. Be supine and without extra weight on the bed during waking. -DME request to our [employer] vendor for lymphedema pumps (IN USE!), as well as a walking sling (ORDERED) -trial of Lasix and spironolactone to help alleviate some of her edema, POTASSIUM AND CREATINE ARE STABLE. ON REPLACEMENT. -started and titrated Zoloft (now 50mg) -wound care is progressing and now is only needed M.W.F and prn Heart rate is up this morning a little bit to 112. She has typically been 80s to 70s. Pulse ox 98% on room air Blood pressure 123/62. Pulse 70. Weight is 150.2 kilos - down from 170.2 = 44# EKG shows AFlutter continues, rate controlled. Hemoglobin as fluctuated from 11.5-11.3-12.5 and 11.2 We are matching up the unopposed estrogen with Provera. Objective: Vitals: see above Lungs: Clear. Cardiac: no harsh murmurs; irregular large obese legs with chronic lymphedema Disposition/Potential discharge - Needs SNF Total time is 35 minutes with greater than 50% spent in counseling and coordination of care. Exam Const: Vital Signs, click to edit/add: Vital Signs - 24 hr 04/07/22 15:38 04/07/22 17:04 04/07/22 20:00 Temperature 97.5 F L Pulse Rate Pulse Rate [Pulse Oximeter] 70 Respiratory Rate 18 Blood Pressure [Ri ght Arm] 123/62 Pulse Oximetry 92 Oxygen Delivery Me thod Room Air Room Air Fraction of Inspir ed Oxygen 21 04/07/22 23:00 04/08/22 09:46 04/08/22 10:48 Temperature Pulse Rate 112 H Pulse Rate [Pulse Oximeter] Respiratory Rate 16 Blood Pressure [Ri ght Arm] Pulse Oximetry 94 98 Oxygen Delivery Me thod BiPAP Room Air Fraction of Inspir ed Oxygen 21 Labs Labs: Laboratory Results - last 24 hr 04/08/22 06:19 Hgb 11.2 L
--- NOTE | 2022-04-08 11:12 | PC.NURSE ---
MD ordered EKG, IV, and cardiac monitoring to try and discontinue Eliquis due to vaginal bleeding. EKG completed and showed Aflutter. Rate was 69bpm. MD requested that we not put on telemetry and no indication needed for the IV at this time as we will not be stopping Eliquis due to patient being in aflutter.
--- NOTE | 2022-04-08 14:12 | PC.NURSE ---
End of shift note: Patient is not receiving PT 3X/week. Did not have today. Was up in EZ stand for a period of time twice today. Has been in w/c and recliner since 930. Denies pain at rest. Does have left knee pain when up in EZ stand. Vaginal bleeding has decreased since yesterday. Has soaked through 1 chux instead of only 1 time this shift. Applied a large sepideh pad this afternoon. Dressing was changed as Mepilex was soiled this AM. Ghosh patent. Received a bed bath with a hair wash today. Lower extremity wraps changed and legs washed and Lotionized. EKG was done to see if we could stop Eliquis to help with bleeding but pt remains in aflutter. MD did not feel further intervention was needed as patient is on all of the appropriate medications for aflutter. No PIV- MD okay with this as hbg is stable. Lung sounds clear. SCDs present. Pericare completed. Alert and oriented. Pleasant but frustrated that schedule has changed with PT/OT but verbalizes understanding. Did not have a meal on this shift but this is patient's normal routine. 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 Weight is down more today.
--- NOTE | 2022-04-08 19:45 | PC.NURSE ---
Pt up in chair. Denies pain. Doing upper body exercises per OT.
[2022-04-08] MEDS: MELATONIN 3 MG TABLET PO (21:18)
--- NOTE | 2022-04-09 06:49 | PC.NURSE ---
Status [id number] Alert and oriented. Denies pain. VSS on room air. Wearing bipap overnight. Vaginal bleeding decreasing. Pt was up with assist of 2 and EZ stand to commode, then transferred to wheelchair to do HS cares at the sink, then to bed. Indwelling catheter patent with adequate output. PRN melatonin given at bedtime. Pt observed sleeping throughout night.
[2022-04-09 07:00] VITALS: BP 146/77; PULSE 68; RESP 12; TEMP 36.8; O2SAT 98
[2022-04-09] MEDS: FUROSEMIDE 40 MG TABLET PO (07:48)
[2022-04-09] MEDS: POTASSIUM CHLORIDE 10 MEQ CAPSULE ER 20 MEQ PO ×2 (07:48→18:27)
[2022-04-09] MEDS: CHOLESTYRAMINE POWDER 4 GM PO ×2 (07:49→18:27)
[2022-04-09] MEDS: LACTOBACILLUS ACIDOPHILUS 1 TABLET 1 TAB PO ×3 (07:49→18:27)
[2022-04-09 10:07] VITALS: PULSE 68
[2022-04-09] MEDS: SERTRALINE 50 MG TABLET PO (10:07)
[2022-04-09] MEDS: DIGOXIN 250 MCG TABLET PO (10:07)
[2022-04-09] MEDS: METOPROLOL TARTRATE 100 MG TABLET PO ×2 (10:08→20:40)
[2022-04-09] MEDS: LOPERAMIDE HCL 2 MG CAPSULE PO (10:08)
[2022-04-09] MEDS: APIXABAN 5 MG TABLET PO ×2 (10:08→20:31)
[2022-04-09] MEDS: MEDROXYPROGESTERONE 5 MG TABLET 20 MG PO ×2 (10:09→20:31)
[2022-04-09] MEDS: SPIRONOLACTONE 25 MG TABLET PO (10:09)
[2022-04-09] MEDS: NYSTATIN POWDER 1 APPLIC TOPICAL ×2 (10:10→20:43)
[2022-04-09] MEDS: SODIUM CHLORIDE 0.9 % (FLUSH) 10 ML SYRINGE 5 ML IVF (10:10)
--- NOTE | 2022-04-09 12:23 | P.IMPN_ITS ---
Progress Note: A&P Assessment and plan (1) Vaginal bleeding: Problem details: - on apixaban for Aflutter - still in rate controlled Atrial flutter by ECG on 04/08 - EUA, EMB and Pap smear 03/12/22 (negative HPV, atypical glandular proliferation). Appreciate Gynecology support; please see final consult note from 03/19/22 - 03/19: Dr. Wagner recommended starting Provera 10mg QD for endometrial protection, until she can safely pursue other surgical options (D&C/hysterectomy, etc) - Progesterone initiated 03/21/22 - 04/02: vaginal bleeding as become more brisk - like a medium/moderate menses without clots or cramping - 04/05: vaginal bleeding increased, on 04/06 Dr. Edgar Galloway recommended increasi ng provera to 20mg BID. Bleeding persists, mildly decreased - 04/09: reviewed with Dr. Valdez at [facility] to discuss possibility of transfer vs outpatient f/u; Dr. Valdez notes that we could consider Casing Inspector-Onc referral given pap results - local company intermodal truck driver plan: hysterectomy in the months ahead; short-term possible artery embolization (would require a day trip to IR), plan pending clinical course Status: Acute (2) Weakness generalized: Problem details: - patient continues to make progress, although it is limited. Requiring 1-2 person assist to the EZ stand; using WC. Requires TCU at this juncture but ultimate goal is to return to independent living (I suspect a wheelchair accommodated apartment in assisted living will be needed) - PT and OT following, + fall risk - Will need bariatric equipment - we are still seeking TCU placement - PT and OT rounding with bedside instruction sheets available for patients continued rehab - posting sheets for tips and times. - strict daily weights. Be supine and without extra weight on the bed during waking. DOWN 44LBS OF 04/08/22 Status: Acute (3) Pressure ulcer of buttock: Problem details: - General surgery, I&D in OR 03/04. Dr. Rice will round 2x/week while patient is here - Zosyn initiated on admission, discontinued on 03/06 - wound care is progressing and now is only needed M.W.F and prn Status: Acute (4) Lymphedema associated with obesity: Problem details: - Continue to work on compression and lymphedema pumps - nutrition has been on top of calorie counts, and limited healthy menu. weights vary but slowly decreasing net total weight. - DME request to our [employer] vendor for lymphedema pumps (IN USE!), as well as a walking sling (ORDERED) - continue trial of Lasix and spironolactone to help alleviate some of her edema, POTASSIUM AND CREATINE ARE STABLE. ON K REPLACEMENT. Status: Acute (5) Diarrhea: Problem details: - not associated with abdominal pain or cramping - negative C diff, normal TSH - possibly iatrogenic (however, present prior to initiating Zoloft); not currently on antibiotics - has made diet changes, schedule imodium with hold parameters - given persistent symptoms, added cholestyramine 03/30 - 04/05: improved, patient believes improvement 04/02 discontinuing nutritional supplements, declines any further supplements, working on adequate dietary protein - 04/07: Nutrition spoke with patient about protein snacks, etc. instead of nutritional supplements Status: Acute (6) Adjustment disorder: Problem details: - started zoloft 25mg on 03/13, increased to 50mg 03/24 Status: Acute (7) Acute respiratory failure with hypercapnia: Problem details: - Nocturnal, suggestive of obstructive sleep apnea. - Current BiPAP settings of 18 cm H20 iPap/10 cm H20 ePap, patient tolerates this well - Following gases intermittently Status: Acute (8) Incontinence associated dermatitis: Problem details: - continue williamson and prn loperamide for loose stools (c. diff negative), also working on diet changes to limit diarrhea - continue wound care as per surgery/Wound consult recommendations Status: Acute (9) Atrial flutter with rapid ventricular response: Problem details: - Rate controlled on digoxin and metoprolol, no acute cardiovascular issues currently - Eliquis for prophylaxis - on admission (03/02) patient placed on a diltiazem GTT - transitioned well to oral metoprolol and digoxin, oral Eliquis for ppx - discussed case with Dr. Medina of Cardiology on 03/06: Patient remains hemodynamically stable and rate controlled at this time, outpatient cardiology follow-up - TTE obtained 03/03 Final Impressions: 1. Technically very limited exam. 2. Normal LV size, normal global systolic function with an estimated EF of 60 - 65%. 3. Enlarged RV w/ reduced function, incompletely visualized. 4. Moderately enlarged left atrium. 5. No hemodynamically significant valve disease detected. Status: Acute Plan - per above Subjective Date Seen: 04/09/22 Interval history: Emily was admitted to the hospital on 03/02/22 for generalized weakness; noted to be in atrial flutter during ER evaluation. Other notable findings throughout stay: Sacral wound, DUB (seen by Gynecology), depression/anhedonia, weight management, lymphedema. Patient's Provera was increased secondary to worsening vaginal bleeding; seem to be improved yesterday but has picked up again today. Patient does not have any cramping in her hemoglobin remains fairly stable in the 11 range. Emily continues to work with therapies regularly. She is also working with our nutrition team, and has lost > 40lb throughout her hospital stay. She will require TCU placement upon discharge; persistent postmenopausal DUB is hindering. Exam Narrative: Exam Narrative: GEN: Alert and laying comfortably in bed, nontoxic HEENT: EOMIs bilaterally, no scleral icterus R: Breathing comfortably without tachypnea Ext: + lymphedema Neuro: No focal deficits Psych: Appropriate Const: Vital Signs, click to edit/add: Vital Signs - 24 hr 04/08/22 15:30 04/08/22 15:28 04/08/22 19:00 Temperature 98.1 F Pulse Rate Pulse Rate [Pulse Oximeter] 72 Respiratory Rate 18 18 Blood Pressure [Le ft Arm] 148/98 H Pulse Oximetry 94 96 Oxygen Delivery Me thod Room Air Room Air Fraction of Inspir ed Oxygen 21 04/08/22 23:00 04/08/22 23:00 04/09/22 07:00 Temperature Pulse Rate Pulse Rate [Pulse Oximeter] Respiratory Rate 18 12 Blood Pressure [Le ft Arm] Pulse Oximetry 98 Oxygen Delivery Me thod Room Air BiPAP Room Air Fraction of Inspir ed Oxygen 21 04/09/22 07:00 04/09/22 10:07 04/09/22 10:21 Temperature 98.3 F Pulse Rate 68 Pulse Rate [Pulse Oximeter] 68 Respiratory Rate 12 Blood Pressure [Le ft Arm] 146/77 H Pulse Oximetry 98 Oxygen Delivery Me thod Room Air Fraction of Inspir ed Oxygen 0.21 04/09/22 07:00 Temperature Pulse Rate Pulse Rate [Pulse Oximeter] 68 Respiratory Rate 12 Blood Pressure [Le ft Arm] Pulse Oximetry Oxygen Delivery Me thod Fraction of Inspir ed Oxygen
[2022-04-09 15:00] VITALS: PULSE 68; RESP 18; O2SAT 98
--- NOTE | 2022-04-09 19:20 | PC.NURSE ---
Nursing Care Hours: [id number] Pt this shift calm and cooperative, alert and oriented, motivated to participate in self cares. Vaginal bleeding still present, pt believes its better than it was. Urine output pale yellow but cloudy and odorous. Afebrile. Alie cares done. Self cares done at the sink. Pt working on exercise programs. No c/o pain. Friend visited today. Bandage on L glute changed. Wound bed pink and cotinues to heal. BM x2, first formed and solid, 2nd was soft and unformed.
[2022-04-09 20:30] VITALS: BP 128/64; PULSE 96; RESP 18; TEMP 36.6; O2SAT 96
[2022-04-09] MEDS: MELATONIN 3 MG TABLET PO (21:06)
[2022-04-09 23:00] VITALS: RESP 18; O2SAT 96
[2022-04-10] VITALS (7 sets, daily range): BP systolic 121–146; BP diastolic 72–78; PULSE 65–74; RESP 16–22; TEMP 36.8–36.9; O2SAT 96–97
[2022-04-10 06:46] LABS: Hemoglobin* 10.4 gm/dL (12.0-16.0)
--- NOTE | 2022-04-10 06:51 | PC.NURSE ---
Status [id number] Alert and oriented. Pleasant and cooperative. Denies pain. VSS on room air. Wearing bipap overnight. Up with assist of 2 and EZ stand. BM x1 this shift. Continues to have vaginal bleeding. Pt participates in self grooming cares at the sink. Dressing changed to right buttock. Indwelling catheter present with adequate output. Pt observed resting well throughout night.
[2022-04-10 07:00] LABS: Chloride* 110 mmol/L (96-114); Potassium* 4.8 mmol/L (3.6-5.1); Sodium* 138 mmol/L (135-149)
[2022-04-10 07:03] LABS: Blood Urea Nitrogen* 6 mg/dL (7-30); Carbon Dioxide* 27 mmol/L (20-32); Creatinine* 0.8 mg/dL (0.5-1.5); Est. Creatinine Clearance* 43.91; Estimated Glomerular Filt Rate 78 ml/min
[2022-04-10 07:04] LABS: Calcium* 8.7 mg/dL (8.4-10.6); Glucose* 88 mg/dL (60-115)
[2022-04-10] MEDS: CHOLESTYRAMINE POWDER 4 GM PO ×2 (07:54→18:43)
[2022-04-10] MEDS: POTASSIUM CHLORIDE 10 MEQ CAPSULE ER 20 MEQ PO ×2 (07:55→18:43)
[2022-04-10] MEDS: FUROSEMIDE 40 MG TABLET PO (07:55)
[2022-04-10] MEDS: LACTOBACILLUS ACIDOPHILUS 1 TABLET 1 TAB PO ×3 (07:55→18:43)
[2022-04-10] MEDS: APIXABAN 5 MG TABLET PO ×2 (08:52→20:24)
[2022-04-10] MEDS: DIGOXIN 250 MCG TABLET PO (08:52)
[2022-04-10] MEDS: LOPERAMIDE HCL 2 MG CAPSULE PO (08:53)
[2022-04-10] MEDS: SERTRALINE 50 MG TABLET PO (08:53)
[2022-04-10] MEDS: METOPROLOL TARTRATE 100 MG TABLET PO ×2 (08:53→20:23)
[2022-04-10] MEDS: NYSTATIN POWDER 1 APPLIC TOPICAL ×2 (08:53→20:24)
[2022-04-10] MEDS: MEDROXYPROGESTERONE 5 MG TABLET 20 MG PO (08:53)
[2022-04-10] MEDS: SPIRONOLACTONE 25 MG TABLET PO (08:54)
--- NOTE | 2022-04-10 11:55 | PM.IMPN1 ---
Progress Note: A&P Assessment and plan (1) Vaginal bleeding: Problem details: - on apixaban for Aflutter; at this time, very high risk for thromboembolic event given comorbidities and immobility - still in rate controlled Atrial flutter by ECG on 04/08 - EUA, EMB and Pap smear 03/12/22 (negative HPV, atypical glandular proliferation). Appreciate Gynecology support; please see final consult note from 03/19/22 - 03/19: Dr. Wagner recommended starting Provera 10mg QD for endometrial protection, until she can safely pursue other surgical options (D&C/hysterectomy, etc) - Progesterone initiated 03/21/22 - 04/02: vaginal bleeding as become more brisk - like a medium/moderate menses without clots or cramping - 04/05: vaginal bleeding increased, on 04/06 Dr. Edgar Galloway recommended increasing provera to 20mg BID. Bleeding persists, mildly decreased - 04/09: reviewed with Dr. Valdez at [facility] to discuss possibility of transfer vs outpatient f/u; Dr. 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 Requiring 1-2 person assist to the EZ stand; using WC. Requires TCU at this juncture but ultimate goal is to return to independent living (suspect a wheelchair accommodated apartment in assisted living will be needed) - PT and OT following, + fall risk - Will need bariatric equipment - we are still seeking TCU placement - PT and OT rounding with bedside instruction sheets available for patients continued rehab - posting sheets for tips and times. - strict daily weights. Be supine and without extra weight on the bed during waking. DOWN 44LBS OF 04/08/22 Status: Acute (3) Pressure ulcer of buttock: Problem details: - General surgery, I&D in OR 03/04. Dr. Rice will round 2x/week while patient is here - Zosyn initiated on admission, discontinued on 03/06 - wound care is progressing and now is only needed M.W.F and prn Status: Acute (4) Lymphedema associated with obesity: Problem details: - Continue to work on compression and lymphedema pumps - nutrition has been on top of calorie counts, and limited healthy menu. weights vary but slowly decreasing net total weight. - DME request to our [employer]rd [employer] vendor for lymphedema pumps (IN USE!), as well as a walking sling (ORDERED) - continue trial of Lasix and spironolactone to help alleviate some of her edema, POTASSIUM AND CREATINE ARE STABLE. ON K REPLACEMENT. Status: Acute (5) Diarrhea: Problem details: - not associated with abdominal pain or cramping - negative C diff, normal TSH - possibly iatrogenic (however, present prior to initiating Zoloft); not currently on antibiotics - has made diet changes, schedule imodium with hold parameters - given persistent symptoms, added cholestyramine 03/30 - 04/05: improved, patient believes improvement 04/02 discontinuing nutritional supplements, declines any further supplements, working on adequate dietary protein - 04/07: Nutrition spoke with patient about protein snacks, etc. instead of nutritional supplements Status: Acute (6) Adjustment disorder: Problem details: - started zoloft 25mg on 03/13, increased to 50mg 03/24 Status: Acute (7) Acute respiratory failure with hypercapnia: Problem details: - Nocturnal, suggestive of obstructive sleep apnea. - Current BiPAP settings of 18 cm H20 iPap/10 cm H20 ePap, patient tolerates this well - Following gases intermittently Status: Acute (8) Incontinence associated dermatitis: Problem details: - continue williamson and prn loperamide for loose stools (c. diff negative), also working on diet changes to limit diarrhea - continue wound care as per surgery/Wound consult recommendations Status: Acute (9) Atrial flutter with rapid ventricular response: Problem details: - Rate controlled on digoxin and metoprolol, no acute cardiovascular issues currently - Eliquis for prophylaxis - on admission (03/02) patient placed on a diltiazem GTT - transitioned well to oral metoprolol and digoxin, oral Eliquis for ppx - discussed case with Dr. Medina of Cardiology on 03/06: Patient remains hemodynamically stable and rate controlled at this time, outpatient cardiology follow-up - TTE obtained 03/03 Final Impressions: 1. Technically very limited exam. 2. Normal LV size, normal global systolic function with an estimated EF of 60 - 65%. 3. Enlarged RV w/ reduced function, incompletely visualized. 4. Moderately enlarged left atrium. 5. No hemodynamically significant valve disease detected. Status: Acute Plan - per above - Emily understands the risk/benefit of anticoagulation in setting of DUB; she is also understanding of the difficulty we have with outpatient management of her DUB and/or transfer Subjective Date Seen: 04/10/22 Interval history: Emily was admitted to the hospital on 03/02/22 for generalized weakness; noted to be in atrial flutter during ER evaluation. Other notable findings throughout stay: Sacral wound, DUB (seen by Gynecology), depression/anhedonia, weight management, lymphedema. Patient continues to work with therapies and our nutrition team. Her Hgb has fallen to 10.4 (baseline 11.5-12), asymptomatic. Tolerating Provera and bleeding has not worsened. Her persistent DUB is limiting our TCU placement; and managing this as an outpatient/transfer is also proving difficult. Exam Narrative: Exam Narrative: Sitting comfortably in bedside chair, nontoxic in appearance Extraocular movements are intact, no scleral icterus Atrial flutter without concerning murmurs Breathing comfortably with no concerning wheezing Extremities exhibit lymphedema bilaterally Clear urine draining from [place] Const: Vital Signs, click to edit/add: Vital Signs - 24 hr 04/09/22 15:00 04/09/22 15:00 04/09/22 20:30 Temperature 98 F Pulse Rate Pulse Rate [Pulse Oximeter] 68 96 Respiratory Rate 18 18 18 Blood Pressure [Le ft Arm] Blood Pressure [Ri ght Arm] 128/64 Pulse Oximetry 98 96 Oxygen Delivery Me thod Room Air Room Air Fraction of Inspir ed Oxygen 04/09/22 23:00 04/09/22 23:00 04/10/22 07:00 Temperature 98.2 F Pulse Rate Pulse Rate [Pulse Oximeter] 68 Respiratory Rate 18 18 16 Blood Pressure [Le ft Arm] 146/72 H Blood Pressure [Ri ght Arm] Pulse Oximetry 96 96 Oxygen Delivery Me thod Room Air BiPAP Room Air Fraction of Inspir ed Oxygen 21 04/10/22 07:00 04/10/22 07:00 04/10/22 08:52 Temperature Pulse Rate 68 Pulse Rate [Pulse Oximeter] 68 Respiratory Rate 16 16 Blood Pressure [Le ft Arm] Blood Pressure [Ri ght Arm] Pulse Oximetry 96 Oxygen Delivery Me thod Room Air Fraction of Inspir ed Oxygen 04/10/22 09:37 Temperature Pulse Rate Pulse Rate [Pulse Oximeter] Respiratory Rate Blood Pressure [Le ft Arm] Blood Pressure [Ri ght Arm] Pulse Oximetry Oxygen Delivery Me thod Fraction of Inspir ed Oxygen 0.21 Labs Labs: Laboratory Results - last 24 hr 04/10/22 04/10/22 06:18 06:18 Hgb 10.4 L Sodium 138 Potassium 4.8 Chloride 110 Carbon Dioxide 27 BUN 6 L Creatinine 0.8 Estimated Creat Clear 43.91 Estimated GFR 78 Glucose 88 Calcium 8.7
--- NOTE | 2022-04-10 14:15 | PC.NURSE ---
End of Shift: Patient pleasant and cooperative. Patient vitally stable, lungs clear, BS WNL, NO IV. Patient denies pain. Patient 2 assist/EZ-stand to commode. Patient sepideh-cares performed in morning. Right buttock dressing change performed(vaushe/mepilex) and new LE wraps applied today. Patient had 1 BM, mod formed in commode. Patient performed own morning cares in wheelchair this morning(teeth, hair, face-wash), then has been in recliner remainder of shift. Patient has only had lunch today. Patient continues to have a moderate amount of vaginal bleeding.
[2022-04-10] MEDS: MELATONIN 3 MG TABLET PO (20:25)
--- NOTE | 2022-04-10 21:46 | PC.NURSE ---
Shift note: Pt tolerated transfer with EZ with A2 to commode, wheelchair and bed.No diarrhea, SOB, and pain reported this shift. Ate about 50% of dinner served.
[2022-04-11] VITALS (7 sets, daily range): BP systolic 127–148; BP diastolic 63–91; PULSE 68–78; RESP 18–20; TEMP 36.6–36.8; O2SAT 95–97
[2022-04-11] MEDS: LACTOBACILLUS ACIDOPHILUS 1 TABLET 1 TAB PO ×3 (08:13→17:39)
[2022-04-11] MEDS: CHOLESTYRAMINE POWDER 4 GM PO ×2 (08:13→17:39)
[2022-04-11] MEDS: POTASSIUM CHLORIDE 10 MEQ CAPSULE ER 20 MEQ PO ×2 (08:13→17:39)
[2022-04-11] MEDS: FUROSEMIDE 40 MG TABLET PO (08:14)
[2022-04-11] MEDS: LOPERAMIDE HCL 2 MG CAPSULE PO (09:40)
[2022-04-11] MEDS: SERTRALINE 50 MG TABLET PO (09:40)
[2022-04-11] MEDS: APIXABAN 5 MG TABLET PO ×2 (09:40→20:39)
[2022-04-11] MEDS: NYSTATIN POWDER 1 APPLIC TOPICAL ×2 (09:40→20:39)
[2022-04-11] MEDS: DIGOXIN 250 MCG TABLET PO (09:40)
[2022-04-11] MEDS: METOPROLOL TARTRATE 100 MG TABLET PO ×2 (09:41→20:39)
[2022-04-11] MEDS: SPIRONOLACTONE 25 MG TABLET PO (09:41)
[2022-04-11] MEDS: MEDROXYPROGESTERONE 5 MG TABLET 20 MG PO ×2 (09:44→20:38)
--- NOTE | 2022-04-11 14:50 | P.IMPN_ITS ---
Progress Note: A&P Assessment and plan (1) Vaginal bleeding: Problem details: - on apixaban for Aflutter; at this time, very high risk for thromboembolic event given comorbidities and immobility - still in rate controlled Atrial flutter by ECG on 04/08 - EUA, EMB and Pap smear 03/12/22 (negative HPV, atypical glandular proliferation). Appreciate Gynecology support; please see final consult note from 03/19/22 - 03/19: Dr. Wagner recommended starting Provera 10mg QD for endometrial protection, until she can safely pursue other surgical options (D&C/hysterectomy, etc) - Progesterone initiated 03/21/22 - 04/02: vaginal bleeding as become more brisk - like a medium/moderate menses without clots or cramping - 04/05: vaginal bleeding increased, on 04/06 Dr. Edgar Galloway recommended increasing provera to 20mg BID. Bleeding persists, mildly decreased - 04/09: reviewed with Dr. Valdez at [facility] to discuss possibility of transfer vs outpatient f/u; Dr. Valdez notes that we could consider [facility] Grader-Onc referral given pap results - watermelon harvesting supervisor plan: hysterectomy in the months ahead; short-term: D&C vs ablation vs embolization (would require a day trip to IR), plan pending clinical course Status: Acute (2) Weakness generalized: Problem details: - patient continues to make progress, although limited. Requiring 1-2 person assist to the EZ stand; using WC. Requires TCU at this juncture but ultimate goal is to return to independent living (suspect a wheelchair accommodated apartment in assisted living will be needed) - PT and OT following, + fall risk - Will need bariatric equipment - we are still seeking TCU placement - PT and OT rounding with bedside instruction sheets available for patients continued rehab - posting sheets for tips and times. - strict daily weights. Be supine and without extra weight on the bed during waking. DOWN 44LBS OF 04/08/22 Status: Acute (3) Pressure ulcer of buttock: Problem details: - General surgery, I&D in OR 03/04. Dr. Rice will round 2x/week while patient is here - Zosyn initiated on admission, discontinued on 03/06 - wound care is progressing and now is only needed M.W.F and prn Status: Acute (4) Lymphedema associated with obesity: Problem details: - Continue to work on compression and lymphedema pumps - nutrition has been on top of calorie counts, and limited healthy menu. weights vary but slowly decreasing net total weight. - DME request to our 3rd alliance party vendor for lymphedema pumps (IN USE!), as well as a walking sling (ORDERED) - continue trial of Lasix and spironolactone to help alleviate some of her edema, POTASSIUM AND CREATINE ARE STABLE. ON K REPLACEMENT. Status: Acute (5) Diarrhea: Problem details: - not associated with abdominal pain or cramping - negative C diff, normal TSH - possibly iatrogenic (however, present prior to initiating Zoloft); not currently on antibiotics - has made diet changes, schedule imodium with hold parameters - given persistent symptoms, added cholestyramine 03/30 - 04/05: improved, patient believes improvement 04/02 discontinuing nutritional supplements, declines any further supplements, working on adequate dietary protein - 04/07: Nutrition spoke with patient about protein snacks, etc. instead of nutritional supplements Status: Acute (6) Adjustment disorder: Problem details: - started zoloft 25mg on 03/13, increased to 50mg 03/24 Status: Acute (7) Acute respiratory failure with hypercapnia: Problem details: - Nocturnal, suggestive of obstructive sleep apnea. - Current BiPAP settings of 18 cm H20 iPap/10 cm H20 ePap, patient tolerates this well - Following gases intermittently Status: Acute (8) Incontinence associated dermatitis: Problem details: - continue williamson and prn loperamide for loose stools (c. diff negative), also working on diet changes to limit diarrhea - continue wound care as per surgery/Wound consult recommendations Status: Acute (9) Atrial flutter with rapid ventricular response: Problem details: - Rate controlled on digoxin and metoprolol, no acute cardiovascular issues currently - Eliquis for prophylaxis - on admission (03/02) patient placed on a diltiazem GTT - transitioned well to oral metoprolol and digoxin, oral Eliquis for ppx - discussed case with Dr. Medina of Cardiology on 03/06: Patient remains hemodynamically stable and rate controlled at this time, outpatient cardiology follow-up - TTE obtained 03/03 Final Impressions: 1. Technically very limited exam. 2. Normal LV size, normal global systolic function with an estimated EF of 60 - 65%. 3. Enlarged RV w/ reduced function, incompletely visualized. 4. Moderately enlarged left atrium. 5. No hemodynamically significant valve disease detected. Status: Acute Plan 1. Plan as outlined above. 2. Continue to work with social studies department chair in effort to establish discharge disposition plan. Time Spent With Patient Total time spent: 30 minutes Subjective Time Seen by Provider: 08:00 Date Seen: 04/11/22 Interval history: Emily was admitted to the hospital on 03/02/22 for generalized weakness; noted to be in atrial flutter during ER evaluation. Other notable findings throughout stay: Sacral wound, dysfunctional uterine bleeding (DUB, seen by Gynecology), depression/anhedonia, weight management, lymphedema. Initially her overweight status and profound weakness prevented placement outside of the hospital. Patient continues to work with therapies and our nutrition team. Her Hgb has fallen to 10.4 (baseline 11.5-12), asymptomatic. Tolerating Provera and bleeding has not worsened - initial dose was 10 mg twice daily, and current dose is now at 20 mg twice daily.. Her persistent DUB is limiting our TCU placement; and managing this as an outpatient/transfer is also proving difficult. She says she wants to keep trying to improve, but it is taking her far longer than she had hoped for. She is disappointed that PT and OT are curtailing their efforts somewhat related to the plateauing of her improvement. Otherwise is doing well. She has a physical therapy and occupational therapy recommended daily regimen which the nursing staff assist the patient with. Exam Narrative: Exam Narrative: Appears comfortable. No acute distress. Alert, oriented to self, place, time, situation. Cooperative, friendly, articulate. Mood and affect are congruent. Lungs remain clear to auscultation. Heart tones with regular rhythm. Abdomen is obese with active bowel sounds, soft, nontender. Bilateral lower extremity lymphedema. Const: Vital Signs, click to edit/add: Vital Signs - 24 hr 04/10/22 15:00 04/10/22 15:00 04/10/22 19:00 Temperature 98.4 F Pulse Rate Pulse Rate [Pulse Oximeter] 74 74 Respiratory Rate 20 Blood Pressure [Le ft Arm] Blood Pressure [Ri ght Arm] 121/78 Pulse Oximetry 96 96 Oxygen Delivery Me thod Room Air Room Air Fraction of Inspir ed Oxygen 04/10/22 23:20 04/11/22 01:50 04/10/22 23:00 Temperature Pulse Rate Pulse Rate [Pulse Oximeter] 74 Respiratory Rate 20 20 20 Blood Pressure [Le ft Arm] Blood Pressure [Ri ght Arm] Pulse Oximetry 96 Oxygen Delivery Me thod Room Air BiPAP Fraction of Inspir ed Oxygen 04/11/22 07:00 04/11/22 07:00 04/11/22 09:40 Temperature 98.2 F Pulse Rate 68 Pulse Rate [Pulse Oximeter] 68 Respiratory Rate 20 20 Blood Pressure [Le ft Arm] 148/91 H Blood Pressure [Ri ght Arm] Pulse Oximetry 96 96 Oxygen Delivery Me thod Room Air Room Air Fraction of Inspir ed Oxygen 04/11/22 09:58 04/11/22 07:00 Temperature Pulse Rate Pulse Rate [Pulse Oximeter] 68 Respiratory Rate 20 Blood Pressure [Le ft Arm] Blood Pressure [Ri ght Arm] Pulse Oximetry Oxygen Delivery Me thod Fraction of Inspir ed Oxygen 0.21 Documenting provider has reviewed patient's vital signs: yes Labs Labs: Laboratory Results - last 24 hr 04/11/22 06:46 Hgb 11.0 L
[2022-04-11 15:45] LABS: Albumin* 2.6 g/dL (3.3-5.0)
--- NOTE | 2022-04-11 18:07 | PC.NURSE ---
End of Shift: Patient pleasant and cooperative. Patient vitally stable, lungs clear, BS WNL, NO IV. Patient denies pain. Patient 2 assist/EZ stand. Patient wound care performed. Patient had 1 BM in commode. Ghosh intact and draining. Patient in chair all shift, patient did perform some exercises while in chair. Patient ate lunch and dinner.
[2022-04-11] MEDS: MELATONIN 3 MG TABLET PO (20:39)
--- NOTE | 2022-04-12 05:29 | PC.NURSE ---
: Pt tolerated activity from chair to commode to w/c with ez stand, brushed teeth/washed up for night, then back to bed with ezstand, was doing arm exercises with weights self motivated. Wound mepilex came off and started bleeding, thus new applied, bleeding stopped. Melatonin given at hs has been sleeping since with bipap 16/12.
[2022-04-12 07:00] VITALS: BP 122/97; PULSE 109; RESP 24; TEMP 36.7; O2SAT 96
[2022-04-12] MEDS: POTASSIUM CHLORIDE 10 MEQ CAPSULE ER 20 MEQ PO ×2 (08:26→18:20)
[2022-04-12] MEDS: LACTOBACILLUS ACIDOPHILUS 1 TABLET 1 TAB PO ×3 (08:26→18:20)
[2022-04-12] MEDS: FUROSEMIDE 40 MG TABLET PO (08:26)
[2022-04-12] MEDS: CHOLESTYRAMINE POWDER 4 GM PO ×2 (08:26→18:20)
[2022-04-12 10:09] VITALS: PULSE 109
[2022-04-12] MEDS: DIGOXIN 250 MCG TABLET PO (10:09)
[2022-04-12] MEDS: LOPERAMIDE HCL 2 MG CAPSULE PO (10:09)
[2022-04-12] MEDS: SERTRALINE 50 MG TABLET PO (10:10)
[2022-04-12] MEDS: SPIRONOLACTONE 25 MG TABLET PO (10:10)
[2022-04-12] MEDS: METOPROLOL TARTRATE 100 MG TABLET PO ×2 (10:10→20:04)
[2022-04-12] MEDS: APIXABAN 5 MG TABLET PO ×2 (10:11→20:04)
[2022-04-12] MEDS: MEDROXYPROGESTERONE 5 MG TABLET 20 MG PO ×2 (10:11→20:03)
--- NOTE | 2022-04-12 13:41 | P.IMPN_ITS ---
Progress Note: A&P Assessment and plan (1) Vaginal bleeding: Problem details: - on apixaban for Aflutter; at this time, very high risk for thromboembolic event given comorbidities and immobility - still in rate controlled Atrial flutter by ECG on 04/08 - EUA, EMB and Pap smear 03/12/22 (negative HPV, atypical glandular proliferation). Appreciate Gynecology support; please see final consult note from 03/19/22 - 03/19: Dr. Wagner recommended starting Provera 10mg QD for endometrial protection, until she can safely pursue other surgical options (D&C/hysterectomy, etc) - Progesterone initiated 03/21/22 - 04/02: vaginal bleeding as become more brisk - like a medium/moderate menses without clots or cramping - 04/05: vaginal bleeding increased, on 04/06 Dr. Edgar Galloway recommended increasing provera to 20mg BID. Bleeding persists, mildly decreased - 04/09: reviewed with Dr. Valdez at [facility] to discuss possibility of transfer vs outpatient f/u; Dr. Valdez notes that we could consider [facility]ic-Onc referral given pap results - intermediate manager plan: hysterectomy in the months ahead; short-term: D&C vs ablation vs embolization (would require a day trip to IR), plan pending clinical course Status: Acute Assessment and Plan: Hemoglobin has been stable around 11. (2) Weakness generalized: Problem details: - patient continues to make progress, although limited. Requiring 1-2 person assist to the EZ stand; using WC. Requires TCU at this juncture but ultimate goal is to return to independent living (suspect a wheelchair accommodated apartment in assisted living will be needed) - PT and OT following, + fall risk - Will need bariatric equipment - we are still seeking TCU placement - PT and OT rounding with bedside instruction sheets available for patients continued rehab - posting sheets for tips and times. - strict daily weights. Be supine and without extra weight on the bed during waking. DOWN 44LBS OF 04/08/22 Status: Acute (3) Pressure ulcer of buttock: Problem details: - General surgery, I&D in OR 03/04. Dr. Rice will round 2x/week while patient is here - Zosyn initiated on admission, discontinued on 03/06 - wound care is progressing and now is only needed M.W.F and prn Status: Acute (4) Lymphedema associated with obesity: Problem details: - Continue to work on compression and lymphedema pumps - nutrition has been on top of calorie counts, and limited healthy menu. weights vary but slowly decreasing net total weight. - DME request to our [employer]rd [employer] vendor for lymphedema pumps (IN USE!), as well as a walking sling (ORDERED) - continue trial of Lasix and spironolactone to help alleviate some of her edema, POTASSIUM AND CREATINE ARE STABLE. ON K REPLACEMENT. Status: Acute (5) Diarrhea: Problem details: - not associated with abdominal pain or cramping - negative C diff, normal TSH - possibly iatrogenic (however, present prior to initiating Zoloft); not currently on antibiotics - has made diet changes, schedule imodium with hold parameters - given persistent symptoms, added cholestyramine 03/30 - 04/05: improved, patient believes improvement 04/02 discontinuing nutritional supplements, declines any further supplements, working on adequate dietary protein - 04/07: Nutrition spoke with patient about protein snacks, etc. instead of nutritional supplements Status: Acute (6) Adjustment disorder: Problem details: - started zoloft 25mg on 03/13, increased to 50mg 03/24 Status: Acute (7) Acute respiratory failure with hypercapnia: Problem details: - Nocturnal, suggestive of obstructive sleep apnea. - Current BiPAP settings of 18 cm H20 iPap/10 cm H20 ePap, patient tolerates this well - Following gases intermittently Status: Acute (8) Incontinence associated dermatitis: Problem details: - continue williamson and prn loperamide for loose stools (c. diff negative), also working on diet changes to limit diarrhea - continue wound care as per surgery/Wound consult recommendations Status: Acute (9) Atrial flutter with rapid ventricular response: Problem details: - Rate controlled on digoxin and metoprolol, no acute cardiovascular issues currently - Eliquis for prophylaxis - on admission (03/02) patient placed on a diltiazem GTT - transitioned well to oral metoprolol and digoxin, oral Eliquis for ppx - discussed case with Dr. Medina of Cardiology on 03/06: Patient remains hemodynamically stable and rate controlled at this time, outpatient cardiology follow-up - TTE obtained 03/03 Final Impressions: 1. Technically very limited exam. 2. Normal LV size, normal global systolic function with an estimated EF of 60 - 65%. 3. Enlarged RV w/ reduced function, incompletely visualized. 4. Moderately enlarged left atrium. 5. No hemodynamically significant valve disease detected. Status: Acute Plan 1. Continue with plan as specified above. 2. Continue to encourage patient to continue to strive to improve and progress physically, emotionally, and spiritually. Time Spent With Patient Total time spent: 20 minutes Subjective Time Seen by Provider: 08:00 Date Seen: 04/12/22 Interval history: Hospital day number 42Denny Diaz was admitted to the hospital on 03/02/22 for generalized weakness; noted to be in atrial flutter during ER evaluation. Other notable findings throughout stay: Sacral wound, dysfunctional uterine bleeding (DUB, seen by Gynecology), depression/anhedonia, weight management, lymphedema. Initially her overweight status and profound weakness prevented placement outside of the hospital. Patient continues to work with therapies and our nutrition team. Her Hgb has fallen to 10.4 (baseline 11.5-12), asymptomatic. Tolerating Provera and bleeding has not worsened - initial dose was 10 mg twice daily, and current dose is now at 20 mg twice daily.. Her persistent DUB is limiting our TCU placement; and managing this as an outpatient/transfer is also proving difficult. She says she wants to keep trying to improve, but it is taking her far longer than she had hoped for. She is disappointed that PT and OT are curtailing their efforts somewhat related to the plateauing of her improvement. Otherwise is doing well. She has a physical therapy and occupational therapy recommended daily regimen which the nursing staff assist the patient with. We speak briefly today about a couple of her passions. She is an avid reader, and she loves to sing. Here in the hospital she has continued to read as she desires with her electronic device. Here in the hospital she has not sung as her heart desires due to fear of inconveniencing or disturbing those around her. She tells me that she is nevertheless humming tunes to herself. Otherwise she states she is feeling and doing well today. Exam Narrative: Exam Narrative: Appears comfortable and in no acute distress. Alert and oriented to self, place, time, situation. Emotionally expressive as she tells me about a couple of her passions. She thoroughly enjoys reading and singing. Lungs are clear to auscultation. Heart tones with regular rhythm. Abdomen obese with active bowel sounds, soft, nontender. Sitting upright in her recliner chair. Moves all 4 extremities. Const: Vital Signs, click to edit/add: Vital Signs - 24 hr 04/11/22 15:00 04/11/22 21:08 04/11/22 22:28 Temperature 98 F Pulse Rate Pulse Rate [Pulse Oximeter] 78 Respiratory Rate 18 Blood Pressure [Le ft Arm] Blood Pressure [Ri ght Arm] 127/63 Pulse Oximetry 96 95 97 Oxygen Delivery Me thod Room Air CPAP BiPAP Fraction of Inspir ed Oxygen 04/11/22 22:30 04/12/22 10:02 04/12/22 10:09 Temperature Pulse Rate 109 H Pulse Rate [Pulse Oximeter] 78 Respiratory Rate 18 Blood Pressure [Le ft Arm] Blood Pressure [Ri ght Arm] Pulse Oximetry Oxygen Delivery Me thod Fraction of Inspir ed Oxygen 0.21 04/12/22 07:00 04/12/22 07:00 04/12/22 07:00 Temperature 98.1 F Pulse Rate Pulse Rate [Pulse Oximeter] 109 H 109 H Respiratory Rate 24 24 24 Blood Pressure [Le ft Arm] 122/97 H Blood Pressure [Ri ght Arm] Pulse Oximetry 96 96 Oxygen Delivery Me thod Room Air Room Air Fraction of Inspir ed Oxygen Documenting provider has reviewed patient's vital signs: yes Labs Labs: Laboratory Results - last 24 hr 04/10/22 06:18 Albumin 2.6 L
[2022-04-12 15:00] VITALS: O2SAT 96
--- NOTE | 2022-04-12 18:33 | PC.NURSE ---
End of Shift: Patient pleasant and cooperative. Patient vitally stable, lungs clear, BS WNL, NO IV. Patient denies pain. Patient 2 assist/EZ stand. Wound care performed, and new leg wraps applied. Patient had 1 BM in commode. Ghosh intact and draining. Patient tolerating regular diet.
[2022-04-12 20:00] VITALS: BP 130/60; PULSE 84; RESP 18; TEMP 36.7; O2SAT 95
[2022-04-12] MEDS: NYSTATIN POWDER 1 APPLIC TOPICAL (20:03)
[2022-04-12] MEDS: MELATONIN 3 MG TABLET PO (21:39)
[2022-04-12 23:14] VITALS: PULSE 84; RESP 18; O2SAT 95
[2022-04-13 05:57] LABS: Basophils Percent Auto 0.3 % (0.0-3.0); Eosinophils Percent Auto 4.6 % (0.0-7.0); Hematocrit 34.6 % (33.0-51.0); Hemoglobin* 10.5 gm/dL (12.0-16.0); Immature Granulocytes Pct Auto 0.3 %; Lymphocytes Percent Auto 38.2 % (20-44); Mean Corpuscular HGB Conc 30 gm/dL (32-36); Mean Corpuscular Hemoglobin 26 pg (26-34); Mean Corpuscular Volume 86 fL (80-100); Monocytes Percent Auto 10.4 % (0.0-11.0); Neutrophils Percent Auto 46.2 % (42.0-72.0); Platelet Count* 184 K/uL (140-440); RDW Coefficient of Variation % 14.6 % (11.5-15.5); Red Blood Count 4.02 m/uL (4.00-5.20); White Blood Count* 3.93 K/uL (4.50-11.00)
[2022-04-13 06:00] LABS: Slide Review Reflex No
[2022-04-13 06:09] LABS: Albumin* 2.8 g/dL (3.3-5.0); Chloride* 110 mmol/L (96-114); Sodium* 138 mmol/L (135-149)
[2022-04-13 06:10] LABS: Potassium* 4.8 mmol/L (3.6-5.1)
[2022-04-13 06:12] LABS: Blood Urea Nitrogen* 8 mg/dL (7-30); Carbon Dioxide* 28 mmol/L (20-32); Creatinine* 0.8 mg/dL (0.5-1.5); Est. Creatinine Clearance* 43.91; Estimated Glomerular Filt Rate 78 ml/min
[2022-04-13 06:13] LABS: Calcium* 8.7 mg/dL (8.4-10.6); Glucose* 92 mg/dL (60-115); Phosphorus* 3.6 mg/dL (2.5-4.5)
[2022-04-13] MEDS: CHOLESTYRAMINE POWDER 4 GM PO ×2 (09:05→17:46)
[2022-04-13] MEDS: POTASSIUM CHLORIDE 10 MEQ CAPSULE ER 20 MEQ PO ×2 (09:06→17:46)
[2022-04-13 09:07] VITALS: PULSE 70
[2022-04-13] MEDS: DIGOXIN 250 MCG TABLET PO (09:07)
[2022-04-13] MEDS: MEDROXYPROGESTERONE 5 MG TABLET 20 MG PO ×2 (09:08→21:06)
[2022-04-13] MEDS: SERTRALINE 50 MG TABLET PO (09:08)
[2022-04-13] MEDS: LACTOBACILLUS ACIDOPHILUS 1 TABLET 1 TAB PO ×3 (09:08→17:46)
[2022-04-13] MEDS: LOPERAMIDE HCL 2 MG CAPSULE PO (09:08)
[2022-04-13] MEDS: APIXABAN 5 MG TABLET PO ×2 (09:12→21:06)
[2022-04-13] MEDS: SPIRONOLACTONE 25 MG TABLET PO (09:12)
[2022-04-13] MEDS: NYSTATIN POWDER 1 APPLIC TOPICAL (09:12)
[2022-04-13] MEDS: METOPROLOL TARTRATE 100 MG TABLET PO ×2 (09:12→21:06)
[2022-04-13] MEDS: FUROSEMIDE 40 MG TABLET PO (09:12)
[2022-04-13 09:18] VITALS: BP 122/67; PULSE 75; RESP 20; TEMP 36.6; O2SAT 100
[2022-04-13 09:39] VITALS: BMI 57.6
[2022-04-13 12:39] LABS: Cholesterol* 103 mg/dL (90-199); HDL Cholesterol* 43 mg/dL (>=50); LDL Cholesterol Calculated 45 mg/dL (<100); Triglycerides* 73 mg/dL (40-149)
--- NOTE | 2022-04-13 14:04 | PC.SOCIAL ---
Addendum entered by Ita Dhaliwal, [facility] 04/13/22 15:57: [facility] decontamination worker (Olga Rocha) indicates that pt does not yet have an MA number but provided the PMI number ([id number]) and states that some documents have not been received yet for MA application. Inquiry emailed to rehabilitation case coordinator about this and re-faxed bank statements. SW will continue to follow. Original Note: Discharge Planning: The following calls were placed together for possible admission to SNF: 1. [facility]: unable to call due to measurement of chair still at 26 inches, which is more than the allowed 24 inches 2. [facility]: rooms available but declined due to size of shared female room available being too small to accommodate an EZ Stand 3. [facility]: no anticipation of bariatric beds available this week 4. [facility]: left message 5. [facility]: left message 6. [facility]: no available beds [facility]. [facility]: left message 8. [facility]: left message 9. [facility]: left message 10. [facility] [place] [facility]: left message 11. [facility] in [place] ([facility]) has indicated bed availability, understands weight of 335 lbs, need for BiPap at night and minimal wound care needs (MWF dressing change), and invited referral to be faxed for consideration of admission. Referral faxed to [phone]. RN aware of updated d/c planning. SW will continue to follow up for d/c planning needs.
--- NOTE | 2022-04-13 15:18 | P.IMPN_ITS ---
Progress Note: A&P Assessment and plan (1) Vaginal bleeding: Problem details: - on apixaban for Aflutter; at this time, very high risk for thromboembolic event given comorbidities and immobility - still in rate controlled Atrial flutter by ECG on 04/08 - EUA, EMB and Pap smear 03/12/22 (negative HPV, atypical glandular proliferation). Appreciate Gynecology support; please see final consult note from 03/19/22 - 03/19: Dr. Wagner recommended starting Provera 10mg QD for endometrial protection, until she can safely pursue other surgical options (D&C/hysterectomy, etc) - Progesterone initiated 03/21/22 - 04/02: vaginal bleeding as become more brisk - like a medium/moderate menses without clots or cramping - 04/05: vaginal bleeding increased, on 04/06 Dr. Edgar Galloway recommended increasing provera to 20mg BID. Bleeding persists, mildly decreased - 04/09: reviewed with Dr. Valdez at [facility] to discuss possibility of transfer vs outpatient f/u; Dr. 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 Requiring 1-2 person assist to the EZ stand; using WC. Requires TCU at this juncture but ultimate goal is to return to independent living (suspect a wheelchair accommodated apartment in assisted living will be needed) - PT and OT following, + fall risk - Will need bariatric equipment - we are still seeking TCU placement - PT and OT rounding with bedside instruction sheets available for patients continued rehab - posting sheets for tips and times. - strict daily weights. Be supine and without extra weight on the bed during waking. DOWN 44LBS OF 04/08/22 Status: Acute (3) Pressure ulcer of buttock: Problem details: - General surgery, I&D in OR 03/04. Dr. Rice will round 2x/week while patient is here - Zosyn initiated on admission, discontinued on 03/06 - wound care is progressing and now is only needed M.W.F and prn Status: Acute (4) Lymphedema associated with obesity: Problem details: - Continue to work on compression and lymphedema pumps - nutrition has been on top of calorie counts, and limited healthy menu. weights vary but slowly decreasing net total weight. - DME request to our [employer] vendor for lymphedema pumps (IN USE!), as well as a walking sling (ORDERED) - continue trial of Lasix and spironolactone to help alleviate some of her edema, POTASSIUM AND CREATINE ARE STABLE. ON K REPLACEMENT. Status: Acute (5) Diarrhea: Problem details: - not associated with abdominal pain or cramping - negative C diff, normal TSH - possibly iatrogenic (however, present prior to initiating Zoloft); not currently on antibiotics - has made diet changes, schedule imodium with hold parameters - given persistent symptoms, added cholestyramine 03/30 - 04/05: improved, patient believes improvement 04/02 discontinuing nutritional supplements, declines any further supplements, working on adequate dietary protein - 04/07: Nutrition spoke with patient about protein snacks, etc. instead of nutritional supplements Status: Acute (6) Adjustment disorder: Problem details: - started zoloft 25mg on 03/13, increased to 50mg 03/24 Status: Acute (7) Acute respiratory failure with hypercapnia: Problem details: - Nocturnal, suggestive of obstructive sleep apnea. - Current BiPAP settings of 18 cm H20 iPap/10 cm H20 ePap, patient tolerates this well - Following gases intermittently Status: Acute (8) Incontinence associated dermatitis: Problem details: - continue williamson and prn loperamide for loose stools (c. diff negative), also working on diet changes to limit diarrhea - continue wound care as per surgery/Wound consult recommendations Status: Acute (9) Atrial flutter with rapid ventricular response: Problem details: - Rate controlled on digoxin and metoprolol, no acute cardiovascular issues currently - Eliquis for prophylaxis - on admission (03/02) patient placed on a diltiazem GTT - transitioned well to oral metoprolol and digoxin, oral Eliquis for ppx - discussed case with Dr. Medina of Cardiology on 03/06: Patient remains hemodynamically stable and rate controlled at this time, outpatient cardiology follow-up - TTE obtained 03/03 Final Impressions: 1. Technically very limited exam. 2. Normal LV size, normal global systolic function with an estimated EF of 60 - 65%. 3. Enlarged RV w/ reduced function, incompletely visualized. 4. Moderately enlarged left atrium. 5. No hemodynamically significant valve disease detected. Status: Acute (10) Protein-calorie malnutrition, mild: Problem details: Albumin consistently low at 2.6-2.8. Total cholesterol 103. She has lost 17 kg since admission to the hospital. Status: Acute Assessment and Plan: Nutrition consultation. Time Spent With Patient Total time spent: 20 minutes Subjective Time Seen by Provider: 12:00 Date Seen: 04/13/22 Interval history: Hospital day number 43. Emily was admitted to the hospital on 03/02/22 for generalized weakness; noted to be in atrial flutter during ER evaluation. Other notable findings throughout stay: Sacral wound, dysfunctional uterine bleeding (DUB, seen by Gynecology), depression/anhedonia, weight management, lymphedema. Initially her overweight status and profound weakness prevented placement outside of the hospital. Patient continues to work with therapies and our nutrition team. Her Hgb has fallen to 10.4 (baseline 11.5-12), asymptomatic. Tolerating Provera and bleeding has not worsened - initial dose was 10 mg twice daily, and current dose is now at 20 mg twice daily.. Her persistent DUB is limiting our TCU placement; and managing this as an outpatient/transfer is also proving difficult. She continues to work on the physical therapy and occupational therapy recommended daily regimen which the nursing staff assist the patient with. I speak with her about her diet today. My concern is that she is malnourished. Turns out that she is not eating a lot of foods with the nutritional values that she warrants. She is willing to speak with our dietitian. Dysfunctional uterine bleeding much improved. Exam Narrative: Exam Narrative: Appears comfortable and in no acute distress. Alert and oriented to person, place, time, and situation. Friendly, articulate, cooperative. Mood and affect are congruent. Lungs clear to auscultation. Heart tones with regular rhythm. Abdomen with active bowel sounds. Moves all 4 extremities. Const: Vital Signs, click to edit/add: Vital Signs - 24 hr 04/12/22 20:00 04/12/22 23:14 04/12/22 23:14 Temperature 98.1 F Pulse Rate Pulse Rate [Pulse Oximeter] 84 84 Respiratory Rate 18 18 18 Blood Pressure [Le ft Arm] 130/60 Blood Pressure [Ri ght Arm] Pulse Oximetry 95 95 Oxygen Delivery Me thod Room Air Room Air Fraction of Inspir ed Oxygen 04/13/22 09:07 04/13/22 09:18 04/13/22 09:18 Temperature 97.8 F Pulse Rate 70 Pulse Rate [Pulse Oximeter] 75 Respiratory Rate 20 Blood Pressure [Le ft Arm] Blood Pressure [Ri ght Arm] 122/67 Pulse Oximetry 100 100 Oxygen Delivery Me thod Room Air Room Air Fraction of Inspir ed Oxygen 04/13/22 09:37 Temperature Pulse Rate Pulse Rate [Pulse Oximeter] Respiratory Rate Blood Pressure [Le ft Arm] Blood Pressure [Ri ght Arm] Pulse Oximetry Oxygen Delivery Me thod Fraction of Inspir ed Oxygen 0.21 Documenting provider has reviewed patient's vital signs: yes Labs Labs: Laboratory Results - last 24 hr 04/13/22 04/13/22 04/13/22 05:30 05:30 05:30 WBC 3.93 L RBC 4.02 Hgb 10.5 L Hct 34.6 MCV 86 MCH 26 MCHC 30 L RDW Coeff of Sal 14.6 Plt Count 184 Neut % (Auto) 46.2 Lymph % (Auto) 38.2 Page % (Auto) 10.4 Eos % (Auto) 4.6 Baso % (Auto) 0.3 Neut # (Auto) 1.80 Lymph # (Auto) 1.50 Page # (Auto) 0.40 Eos # (Auto) 0.20 Baso # (Auto) 0.00 Sodium 138 Potassium 4.8 Chloride 110 Carbon Dioxide 28 BUN 8 Creatinine 0.8 Estimated Creat Clear 43.91 Estimated GFR 78 Glucose 92 Calcium 8.7 Phosphorus 3.6 Albumin 2.8 L Triglycerides 73 Cholesterol 103 LDL Cholesterol, Calc 45 HDL Cholesterol 43 L TSH 4.600 H
[2022-04-13 15:59] VITALS: RESP 18
--- NOTE | 2022-04-13 17:49 | PC.NURSE ---
Shift Summary: Patient pleasant and cooperative. Seen doing strengthening exercises in room throughout day, requested that staff help her stand with EZ stand for 3 minutes and verbalized she wishes to increase this time/frequency throughout the week. Mepilex over bottom changed.
[2022-04-13 19:00] VITALS: BP 134/69; PULSE 70; RESP 18; TEMP 36.9; O2SAT 95
[2022-04-13 23:00] VITALS: PULSE 74; RESP 18; O2SAT 95
[2022-04-13] MEDS: MELATONIN 3 MG TABLET PO (23:30)
--- NOTE | 2022-04-14 05:23 | PC.NURSE ---
Shift note: Pt appears to be getting better by regaining strength. Continuous to tolerate A2 with EZ stand with SBA foe self care. Bleeding per vagina(spot of blood) in brief noted. Urinary catheter is patent draining felipe color urine but strong odor. No pain or SOB reported. CPAP on at night and O2 level above 90 throughout the shift.
[2022-04-14 07:00] VITALS: BP 142/62; PULSE 83; RESP 16; TEMP 36.7; O2SAT 91
--- NOTE | 2022-04-14 09:15 | PM.IMPN1 ---
Progress Note: A&P Assessment and plan (1) Vaginal bleeding: Problem details: - on apixaban for Aflutter; at this time, very high risk for thromboembolic event given comorbidities and immobility - still in rate controlled Atrial flutter by ECG on 04/08 - EUA, EMB and Pap smear 03/12/22 (negative HPV, atypical glandular proliferation). Appreciate Gynecology support; please see final consult note from 03/19/22 - 03/19: Dr. Wagner recommended starting Provera 10mg QD for endometrial protection, until she can safely pursue other surgical options (D&C/hysterectomy, etc) - Progesterone initiated 03/21/22 - 04/02: vaginal bleeding as become more brisk - like a medium/moderate menses without clots or cramping - 04/05: vaginal bleeding increased, on 04/06 Dr. Edgar Galloway recommended increasing provera to 20mg BID. Bleeding persists, mildly decreased - 04/09: reviewed with Dr. Valdez at [facility] to discuss possibility of transfer vs outpatient f/u; Dr. 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 Requiring 1-2 person assist to the EZ stand; using WC. Requires TCU at this juncture but ultimate goal is to return to independent living (suspect a wheelchair accommodated apartment in assisted living will be needed) - PT and OT following, + fall risk - Will need bariatric equipment - we are still seeking TCU placement - PT and OT rounding with bedside instruction sheets available for patients continued rehab - posting sheets for tips and times. - strict daily weights. Be supine and without extra weight on the bed during waking. DOWN 44LBS OF 04/08/22 Status: Acute (3) Pressure ulcer of buttock: Problem details: - General surgery, I&D in OR 03/04. Dr. Rice will round 2x/week while patient is here - Zosyn initiated on admission, discontinued on 03/06 - wound care is progressing and now is only needed M.W.F and prn Status: Acute (4) Lymphedema associated with obesity: Problem details: - Continue to work on compression and lymphedema pumps - nutrition has been on top of calorie counts, and limited healthy menu. weights vary but slowly decreasing net total weight. - DME request to our 3rd [employer] party vendor for lymphedema pumps (IN USE!), as well as a walking sling (ORDERED) - continue trial of Lasix and spironolactone to help alleviate some of her edema, POTASSIUM AND CREATINE ARE STABLE. ON K REPLACEMENT. Status: Acute (5) Diarrhea: Problem details: - not associated with abdominal pain or cramping - negative C diff, normal TSH - possibly iatrogenic (however, present prior to initiating Zoloft); not currently on antibiotics - has made diet changes, schedule imodium with hold parameters - given persistent symptoms, added cholestyramine 03/30 - 04/05: improved, patient believes improvement 04/02 discontinuing nutritional supplements, declines any further supplements, working on adequate dietary protein - 04/07: Nutrition spoke with patient about protein snacks, etc. instead of nutritional supplements Status: Acute (6) Adjustment disorder: Problem details: - started zoloft 25mg on 03/13, increased to 50mg 03/24 Status: Acute (7) Acute respiratory failure with hypercapnia: Problem details: - Nocturnal, suggestive of obstructive sleep apnea. - Current BiPAP settings of 18 cm H20 iPap/10 cm H20 ePap, patient tolerates this well - Following gases intermittently Status: Acute (8) Incontinence associated dermatitis: Problem details: - continue williamson and prn loperamide for loose stools (c. diff negative), also working on diet changes to limit diarrhea - continue wound care as per surgery/Wound consult recommendations Status: Acute (9) Atrial flutter with rapid ventricular response: Problem details: - Rate controlled on digoxin and metoprolol, no acute cardiovascular issues currently - Eliquis for prophylaxis - on admission (03/02) patient placed on a diltiazem GTT - transitioned well to oral metoprolol and digoxin, oral Eliquis for ppx - discussed case with Dr. Medina of Cardiology on 03/06: Patient remains hemodynamically stable and rate controlled at this time, outpatient cardiology follow-up - TTE obtained 03/03 Final Impressions: 1. Technically very limited exam. 2. Normal LV size, normal global systolic function with an estimated EF of 60 - 65%. 3. Enlarged RV w/ reduced function, incompletely visualized. 4. Moderately enlarged left atrium. 5. No hemodynamically significant valve disease detected. Status: Acute (10) Protein-calorie malnutrition, mild: Problem details: Albumin consistently low at 2.6-2.8. Total cholesterol 103. She has lost 17 kg since admission to the hospital. Status: Acute (11) Sarcopenia: Problem details: Consistent with her malnourished state Status: Acute Plan 1. Reviewed above with patient. 2. Answered her questions. 3. Discussed with social media assistant. They continue to work on trying to establish a safe discharge disposition for her. Time Spent With Patient Total time spent: 20 minutes Subjective Time Seen by Provider: 09:00 Date Seen: 04/14/22 Interval history: Hospital day number 44. Emily was admitted to the hospital on 03/02/22 for generalized weakness; noted to be in atrial flutter during ER evaluation. Other notable findings throughout stay: Sacral wound, dysfunctional uterine bleeding (DUB, seen by Gynecology), depression/anhedonia, weight management, lymphedema. Initially her overweight status and profound weakness prevented placement outside of the hospital. Patient continues to work with therapies and our nutrition team. Her Hgb has fallen to 10.4 (baseline 11.5-12), asymptomatic. Tolerating Provera and bleeding has not worsened - initial dose was 10 mg twice daily, and current dose is now at 20 mg twice daily. For a while, her persistent DUB was limiting our TCU/LTC placement; and managing this as an outpatient/transfer is also proving difficult. She continues to work on the physical therapy and occupational therapy recommended daily regimen which the nursing staff assist the patient with. Dysfunctional uterine bleeding noticeably improved - some days she has only spotting, and other days more than just spotting, but no longer brisk bleeding as previously. Exam Narrative: Exam Narrative: Appears comfortable and in no acute distress. Alert, oriented to self, place, time, situation. Articulate, cooperative, thoughtful, friendly. Mood and affect are congruent. Moves all 4 extremities. Lungs are clear to auscultation. Heart tones with regular rhythm. Abdomen is benign with active bowel sounds. Const: Vital Signs, click to edit/add: Vital Signs - 24 hr 04/13/22 09:18 04/13/22 09:18 04/13/22 09:37 Temperature 97.8 F Pulse Rate [Pulse Oximeter] 75 Respiratory Rate 20 Blood Pressure [Ri ght Arm] 122/67 Pulse Oximetry 100 100 Oxygen Delivery Me thod Room Air Room Air Oxygen Flow Rate Fraction of Inspir ed Oxygen 0.21 04/13/22 15:59 04/13/22 19:00 04/13/22 23:00 Temperature 98.5 F Pulse Rate [Pulse Oximeter] 70 74 Respiratory Rate 18 18 Blood Pressure [Ri ght Arm] 134/69 Pulse Oximetry 95 Oxygen Delivery Me thod Room Air Room Air Oxygen Flow Rate Fraction of Inspir ed Oxygen 04/13/22 23:00 04/14/22 08:09 Temperature Pulse Rate [Pulse Oximeter] Respiratory Rate 18 Blood Pressure [Ri ght Arm] Pulse Oximetry 95 Oxygen Delivery Me thod Room Air Oxygen Flow Rate 8 Fraction of Inspir ed Oxygen 0.21 21 Documenting provider has reviewed patient's vital signs: yes Labs Labs: Laboratory Results - last 24 hr 04/13/22 04/13/22 05:30 05:30 Triglycerides 73 Cholesterol 103 LDL Cholesterol, Calc 45 HDL Cholesterol 43 L TSH 4.600 H
[2022-04-14] MEDS: NYSTATIN POWDER 1 APPLIC TOPICAL (09:42)
[2022-04-14] MEDS: MEDROXYPROGESTERONE 5 MG TABLET 20 MG PO ×2 (10:01→20:49)
[2022-04-14] MEDS: DIGOXIN 250 MCG TABLET PO (10:02)
[2022-04-14] MEDS: LACTOBACILLUS ACIDOPHILUS 1 TABLET 1 TAB PO ×2 (10:02→17:34)
[2022-04-14] MEDS: POTASSIUM CHLORIDE 10 MEQ CAPSULE ER 20 MEQ PO ×2 (10:03→17:34)
[2022-04-14] MEDS: METOPROLOL TARTRATE 100 MG TABLET PO ×2 (10:05→20:49)
[2022-04-14] MEDS: SERTRALINE 50 MG TABLET PO (10:05)
[2022-04-14] MEDS: FUROSEMIDE 40 MG TABLET PO (10:05)
[2022-04-14] MEDS: APIXABAN 5 MG TABLET PO ×2 (10:05→20:49)
[2022-04-14] MEDS: LOPERAMIDE HCL 2 MG CAPSULE PO (10:06)
[2022-04-14] MEDS: CHOLESTYRAMINE POWDER 4 GM PO ×2 (10:06→17:34)
--- NOTE | 2022-04-14 13:38 | PC.SOCIAL ---
1. [facility] home in [place] has a bed but has not gotten to assessing the referral on pt. sent yesterday. Spoke with Lucila in Admissions at [phone], fax# [phone] 2. [facility] in [place] cannot accept pt. due to a back order on larger harness's for their EZ stand. 3. [facility] [place] cannot accept pt. due to their door size being 24 inches and pt. requires a 26 inch wheelchair 4. [facility] in [place] has a COVID outbreak and cannot accept any new admissions Spoke with Franco in admissions at [facility], [place], and [facility] at [phone], fax# [phone]. He said his company [employer] just boughtt all the [facility]. He receives all initial referrals for these facilities. He requested pt.'s referral with updated information be sent again and he will send the referral out to the facilities that can accommodate pt.'s weight. He specifically was thinking about [facility], and [facility]. Pt.'s updated referral was sent to assess.
--- NOTE | 2022-04-14 15:34 | PC.NURSE ---
Mepilex changed to bottucks this AM, wound appears healed, mepilex placed for preventative.
[2022-04-14] MEDS: SPIRONOLACTONE 25 MG TABLET PO (16:46)
[2022-04-14 19:00] VITALS: BP 145/63; PULSE 76; RESP 16; TEMP 36.9; O2SAT 92
--- NOTE | 2022-04-14 19:24 | PC.NURSE ---
Pt alert and oriented, pleasant. Up to bedside commode then to recliner today w/ Ax2 and EZ Stand. Pt had medium to large BM in commode. Pt sits in WC and does her washing in AM, Nystatin powder placed under breast folds and groin after washing and drying. Pt denies pain. Vitals stable, on RA. Stood for 3 and a half min today with EZ Stand, pt goal is 4 min tomorrow. Wraps re-done to legs. Mepilex dressing replaced to buttocks to prevent shearing of prior wound. Pt calls appropriately, orders meals ind. Ghosh intact and patent. Call light within reach.
[2022-04-14] MEDS: MELATONIN 3 MG TABLET PO (21:48)
[2022-04-14 22:59] VITALS: PULSE 76; RESP 16; O2SAT 92
--- NOTE | 2022-04-15 05:40 | PC.NURSE ---
shift note: Pt is doing well, performed some activity in bed. Had CPAP on tonight and was able to sleep very well after taking tab Melatonin. Pt confirmed of gaining strength at able to stand independently for 3minutes 30 seconds.
[2022-04-15 07:00] VITALS: BP 133/69; PULSE 68; RESP 18; TEMP 36.8; O2SAT 97
[2022-04-15] MEDS: CHOLESTYRAMINE POWDER 4 GM PO ×2 (08:34→17:53)
[2022-04-15] MEDS: MEDROXYPROGESTERONE 5 MG TABLET 20 MG PO ×2 (08:35→20:52)
[2022-04-15] MEDS: POTASSIUM CHLORIDE 10 MEQ CAPSULE ER 20 MEQ PO ×2 (08:36→17:54)
[2022-04-15] MEDS: LACTOBACILLUS ACIDOPHILUS 1 TABLET 1 TAB PO ×3 (08:38→17:55)
[2022-04-15] MEDS: FUROSEMIDE 40 MG TABLET PO (08:39)
[2022-04-15] MEDS: METOPROLOL TARTRATE 100 MG TABLET PO ×2 (08:39→20:52)
[2022-04-15] MEDS: LOPERAMIDE HCL 2 MG CAPSULE PO (08:39)
[2022-04-15 08:40] VITALS: PULSE 68
[2022-04-15] MEDS: DIGOXIN 250 MCG TABLET PO (08:40)
[2022-04-15] MEDS: SERTRALINE 50 MG TABLET PO (08:40)
[2022-04-15] MEDS: APIXABAN 5 MG TABLET PO ×2 (08:40→20:52)
[2022-04-15] MEDS: NYSTATIN POWDER 1 APPLIC TOPICAL ×2 (08:41→20:53)
[2022-04-15] MEDS: SPIRONOLACTONE 25 MG TABLET PO (08:41)
--- NOTE | 2022-04-15 13:29 | PM.IMPN1 ---
Progress Note: A&P Assessment and plan (1) Vaginal bleeding: Problem details: - on apixaban for Aflutter; at this time, very high risk for thromboembolic event given comorbidities and immobility - still in rate controlled Atrial flutter by ECG on 04/08 - EUA, EMB and Pap smear 03/12/22 (negative HPV, atypical glandular proliferation). Appreciate Gynecology support; please see final consult note from 03/19/22 - 03/19: Dr. Wagner recommended starting Provera 10mg QD for endometrial protection, until she can safely pursue other surgical options (D&C/hysterectomy, etc) - Progesterone initiated 03/21/22 - 04/02: vaginal bleeding as become more brisk - like a medium/moderate menses without clots or cramping - 04/05: vaginal bleeding increased, on 04/06 Dr. Edgar Galloway recommended increasing provera to 20mg BID. Bleeding persists, mildly decreased - 04/09: reviewed with Dr. Valdez at [facility] to discuss possibility of transfer vs outpatient f/u; Dr. Valdez notes that we could consider Producer Director-Onc referral given pap results - watermelon harvesting supervisor plan: hysterectomy in the months ahead; short-term: D&C vs ablation vs embolization (would require a day trip to IR), plan pending clinical course Status: Acute (2) Weakness generalized: Problem details: - patient continues to make progress, although limited. Requiring 1-2 person assist to the EZ stand; using WC. Requires TCU at this juncture but ultimate goal is to return to independent living (suspect a wheelchair accommodated apartment in assisted living will be needed) - PT and OT following, + fall risk - Will need bariatric equipment - we are still seeking TCU placement - PT and OT rounding with bedside instruction sheets available for patients continued rehab - posting sheets for tips and times. - strict daily weights. Be supine and without extra weight on the bed during waking. DOWN 44LBS OF 04/08/22 Status: Acute (3) Pressure ulcer of buttock: Problem details: - General surgery, I&D in OR 03/04. Dr. Rice will round 2x/week while patient is here - Zosyn initiated on admission, discontinued on 03/06 - wound care is progressing and now is only needed M.W.F and prn Status: Acute (4) Lymphedema associated with obesity: Problem details: - Continue to work on compression and lymphedema pumps - nutrition has been on top of calorie counts, and limited healthy menu. weights vary but slowly decreasing net total weight. - DME request to our 3rd libertarian vendor for lymphedema pumps (IN USE!), as well as a walking sling (ORDERED) - continue trial of Lasix and spironolactone to help alleviate some of her edema, POTASSIUM AND CREATINE ARE STABLE. ON K REPLACEMENT. Status: Acute (5) Diarrhea: Problem details: - not associated with abdominal pain or cramping - negative C diff, normal TSH - possibly iatrogenic (however, present prior to initiating Zoloft); not currently on antibiotics - has made diet changes, schedule imodium with hold parameters - given persistent symptoms, added cholestyramine 03/30 - 04/05: improved, patient believes improvement 04/02 discontinuing nutritional supplements, declines any further supplements, working on adequate dietary protein - 04/07: Nutrition spoke with patient about protein snacks, etc. instead of nutritional supplements Status: Acute (6) Adjustment disorder: Problem details: - started zoloft 25mg on 03/13, increased to 50mg 03/24 Status: Acute (7) Acute respiratory failure with hypercapnia: Problem details: - Nocturnal, suggestive of obstructive sleep apnea. - Current BiPAP settings of 18 cm H20 iPap/10 cm H20 ePap, patient tolerates this well - Following gases intermittently Status: Acute (8) Incontinence associated dermatitis: Problem details: - continue williamson and prn loperamide for loose stools (c. diff negative), also working on diet changes to limit diarrhea - continue wound care as per surgery/Wound consult recommendations Status: Acute (9) Atrial flutter with rapid ventricular response: Problem details: - Rate controlled on digoxin and metoprolol, no acute cardiovascular issues currently - Eliquis for prophylaxis - on admission (03/02) patient placed on a diltiazem GTT - transitioned well to oral metoprolol and digoxin, oral Eliquis for ppx - discussed case with Dr. Medina of Cardiology on 03/06: Patient remains hemodynamically stable and rate controlled at this time, outpatient cardiology follow-up - TTE obtained 03/03 Final Impressions: 1. Technically very limited exam. 2. Normal LV size, normal global systolic function with an estimated EF of 60 - 65%. 3. Enlarged RV w/ reduced function, incompletely visualized. 4. Moderately enlarged left atrium. 5. No hemodynamically significant valve disease detected. Status: Acute (10) Protein-calorie malnutrition, mild: Problem details: Albumin consistently low at 2.6-2.8. Total cholesterol 103. Her weight was as high as 176 kg while in hospital. On admission her weight was 153 kg. Today her weight is 144 kg. Status: Acute Assessment and Plan: Most likely much of her weight loss is in fact fluid loss. (11) Sarcopenia: Problem details: Consistent with her malnourished state Status: Acute Assessment and Plan: Very gradually improving. Initially not even able to stand up on her own. Now is able to stand for about 3 minutes and 30 seconds. (12) Euthyroid sick syndrome: Problem details: TSH 9.1 on 03/25/2022, with normal T4 and T3. Recommend re-check TSH in June 2022. Status: Acute (13) Iron deficiency anemia secondary to blood loss (chronic): Problem details: Monitor hemoglobin periodically. Started iron supplementation 325 mg of ferrous sulfate once daily on 04/15/2022. Status: Acute Plan 1. Reviewed impression with patient. 2. Answered her questions. 3. Continue with efforts to establish safe disposition plan for her. One of the major hurdles initially was her weight. Her weight continues to slowly decline. Today's weight is 144 kilos or roughly 316 lb. 4. Patient agreeable with above stated plans and recommendations. Time Spent With Patient Total time spent: 30 minutes Subjective Time Seen by Provider: 10:00 Date Seen: 04/15/22 Interval history: Hospital day number 45Denny Diaz was admitted to the hospital on 03/02/22 for generalized weakness; noted to be in atrial flutter during ER evaluation. Other notable findings throughout stay: Sacral wound, dysfunctional uterine bleeding (DUB, seen by Gynecology), depression/anhedonia, weight management, lymphedema. Initially her overweight status and profound weakness prevented placement outside of the hospital. Patient continues to work with therapies and our nutrition team. Her Hgb has fallen to 10.4 (baseline 11.5-12), asymptomatic. Tolerating Provera and bleeding has not worsened - initial dose was 10 mg twice daily, and current dose is now at 20 mg twice daily. For a while, her persistent DUB was limiting our TCU/LTC placement; and managing this as an outpatient/transfer is also proving difficult. She continues to work on the physical therapy and occupational therapy recommended daily regimen which the nursing staff assist the patient with. Able to stand for 3 minutes 30 seconds now, vastly improved from not being able to stand at all initially. Dysfunctional uterine bleeding noticeably improved - some days she has only spotting, and other days more than just spotting, but no longer brisk bleeding as previously. Today, only spotting. Exam Narrative: Exam Narrative: Appears comfortable and in no acute distress. Alert and oriented to self, place, time, situation. Friendly, cooperative, articulate, thoughtful. Mood and affect are congruent. Neck is supple. Midline trachea. No JVD or hepatojugular reflux. Lungs are clear to auscultation without wheezing, rhonchi, or rales. Heart tones with regular rhythm, normal S1-S2. Grade 2/6 systolic murmur right upper sternal border and left lower sternal border. No gallops or rubs. PMI not laterally displaced. Extremities with only trace edema. Does have lymphedema of the thighs bilaterally. Moves all 4 extremities. Const: Vital Signs, click to edit/add: Vital Signs - 24 hr 04/14/22 15:00 04/14/22 19:00 04/14/22 22:59 Temperature 98.4 F Pulse Rate Pulse Rate [Pulse Oximeter] 76 76 Respiratory Rate 16 Blood Pressure [Le ft Arm] Blood Pressure [Ri ght Arm] 145/63 H Pulse Oximetry 92 Oxygen Delivery Me thod Room Air Room Air Oxygen Flow Rate Fraction of Inspir ed Oxygen 04/14/22 22:59 04/15/22 07:00 04/15/22 08:40 Temperature 98.2 F Pulse Rate 68 Pulse Rate [Pulse Oximeter] 68 Respiratory Rate 16 18 Blood Pressure [Le ft Arm] 133/69 Blood Pressure [Ri ght Arm] Pulse Oximetry 92 97 Oxygen Delivery Me thod Room Air Room Air Oxygen Flow Rate 8 Fraction of Inspir ed Oxygen 21 04/15/22 11:27 Temperature Pulse Rate Pulse Rate [Pulse Oximeter] Respiratory Rate Blood Pressure [Le ft Arm] Blood Pressure [Ri ght Arm] Pulse Oximetry Oxygen Delivery Me thod Oxygen Flow Rate Fraction of Inspir ed Oxygen 21 Documenting provider has reviewed patient's vital signs: yes
[2022-04-15 15:00] VITALS: PULSE 68; O2SAT 97
--- NOTE | 2022-04-15 18:35 | PC.NURSE ---
Pt alert and oriented x3. Pt denies pain, chest pain, and N/V. Pt reports SOB with exertion. Pt is up with EZ stand to commode and chair. Pt is tolerating 1200 annalee diet. Pt continues to work on weight bearing exercises in room.
[2022-04-15 19:00] VITALS: BP 138/68; PULSE 98; RESP 18; TEMP 36.9; O2SAT 96
[2022-04-15] MEDS: MELATONIN 3 MG TABLET PO (20:55)
[2022-04-15 23:00] VITALS: PULSE 98; RESP 18; O2SAT 96
[2022-04-16 06:29] LABS: Hemoglobin* 10.8 gm/dL (12.0-16.0); Immature Reticulocyte Fraction 15.1 % (3.0-15.9); Reticulocyte Percent 1.4 % (0.5-2.0); Reticulocytes Absolute 0.06 # (0.03-0.08)
--- NOTE | 2022-04-16 06:31 | PC.NURSE ---
VSS on RA. Patient is alert and oriented x4, able to call for help. Patient requires assist of two with transfers using EZ stand, two assist with bed mobility. Ghosh in place and patient. Patient denies pain, slept most of the shift. Pt appears stable, call light within reach.
[2022-04-16 07:00] VITALS: BP 130/70; PULSE 73; PULSE 78; RESP 18; TEMP 36.6; O2SAT 98
[2022-04-16 07:27] LABS: Ferritin* 23.6 ng/mL (11.1-264.0)
[2022-04-16] MEDS: CHOLESTYRAMINE POWDER 4 GM PO ×2 (09:12→17:28)
[2022-04-16] MEDS: MEDROXYPROGESTERONE 5 MG TABLET 20 MG PO ×2 (09:13→20:23)
[2022-04-16] MEDS: NYSTATIN POWDER 1 APPLIC TOPICAL ×2 (09:13→20:23)
[2022-04-16] MEDS: METOPROLOL TARTRATE 100 MG TABLET PO ×2 (09:14→20:23)
[2022-04-16] MEDS: LACTOBACILLUS ACIDOPHILUS 1 TABLET 1 TAB PO ×3 (09:15→17:30)
[2022-04-16] MEDS: LOPERAMIDE HCL 2 MG CAPSULE PO (09:15)
[2022-04-16] MEDS: APIXABAN 5 MG TABLET PO ×2 (09:15→20:23)
[2022-04-16] MEDS: FERROUS SULFATE 325 MG TABLET PO (09:16)
[2022-04-16] MEDS: DIGOXIN 250 MCG TABLET PO (09:16)
[2022-04-16] MEDS: SERTRALINE 50 MG TABLET PO (09:17)
[2022-04-16] MEDS: FUROSEMIDE 40 MG TABLET PO (09:17)
[2022-04-16] MEDS: SPIRONOLACTONE 25 MG TABLET PO (09:18)
[2022-04-16] MEDS: POTASSIUM CHLORIDE 10 MEQ CAPSULE ER 20 MEQ PO ×2 (09:18→17:30)
--- NOTE | 2022-04-16 09:54 | PC.SOCIAL ---
Phone call to [facility] breast worker, Olga Rocha at [phone]. Left a voicemail to confirm that fax was received with pt's information for her MA application. Also asked for a timeline on when pt would have an MA number. Social Work will continue to follow up as necessary.
--- NOTE | 2022-04-16 13:46 | PM.IMPN1 ---
Progress Note: A&P Assessment and plan (1) Vaginal bleeding: Problem details: - on apixaban for Aflutter; at this time, very high risk for thromboembolic event given comorbidities and immobility - still in rate controlled Atrial flutter by ECG on 04/08 - EUA, EMB and Pap smear 03/12/22 (negative HPV, atypical glandular proliferation). Appreciate Gynecology support; please see final consult note from 03/19/22 - 03/19: Dr. Wagner recommended starting Provera 10mg QD for endometrial protection, until she can safely pursue other surgical options (D&C/hysterectomy, etc) - Progesterone initiated 03/21/22 - 04/02: vaginal bleeding as become more brisk - like a medium/moderate menses without clots or cramping - 04/05: vaginal bleeding increased, on 04/06 Dr. Edgar Galloway recommended increasing provera to 20mg BID. Bleeding persists, mildly decreased - 04/09: reviewed with Dr. Valdez at [facility] to discuss possibility of transfer vs outpatient f/u; Dr. Valdez notes that we could consider Lace Cutter-Onc referral given pap results - computer terminal operator plan: hysterectomy in the months ahead; short-term, if needed: D&C vs ablation vs embolization (would require a day trip to IR), plan pending clinical course Status: Acute (2) Weakness generalized: Problem details: - patient continues to make progress, although limited. Requiring 1 person assist to the EZ stand; using WC. Requires TCU at this juncture but ultimate goal is to return to independent living (suspect a wheelchair accommodated apartment in assisted living will be needed) - PT and OT following, + fall risk - Will need bariatric equipment - we are still seeking TCU placement - PT and OT rounding with bedside instruction sheets available for patients continued rehab - posting sheets for tips and times. - strict daily weights. Be supine and without extra weight on the bed during waking. Status: Acute (3) Pressure ulcer of buttock: Problem details: - General surgery, I&D in OR 03/04. Dr. Rice will round 2x/week while patient is here - Zosyn initiated on admission, discontinued on 03/06 - wound care is progressing and now is only needed M.W.F and prn Status: Acute (4) Lymphedema associated with obesity: Problem details: - Continue to work on compression and lymphedema pumps - nutrition has been on top of calorie counts, and limited healthy menu. weights vary but slowly decreasing net total weight. - DME request to our 3rd republican vendor for lymphedema pumps (IN USE!), as well as a walking sling (ORDERED) - continue trial of Lasix and spironolactone to help alleviate some of her edema, POTASSIUM AND CREATINE ARE STABLE. ON K REPLACEMENT. Status: Acute (5) Diarrhea: Problem details: - This has been resolved for several weeks - was not associated with abdominal pain or cramping - negative C diff, normal TSH - possibly iatrogenic (however, present prior to initiating Zoloft); not currently on antibiotics - has made diet changes, scheduled cholestyramine and loperamide with hold parameters - 04/05: improved, patient believes improvement 04/02 discontinuing nutritional supplements, declines any further supplements, working on adequate dietary protein - 04/07: Nutrition spoke with patient about protein snacks, etc. instead of nutritional supplements Status: Acute (6) Adjustment disorder: Problem details: - started zoloft 25mg on 03/13, increased to 50mg 03/24 Status: Acute (7) Acute respiratory failure with hypercapnia: Problem details: - Nocturnal, suggestive of obstructive sleep apnea. - Current BiPAP settings of 18 cm H20 iPap/10 cm H20 ePap, patient tolerates this well - Following gases intermittently Status: Acute (8) Incontinence associated dermatitis: Problem details: - continue williamson and prn loperamide for loose stools (c. diff negative), also working on diet changes to limit diarrhea - continue wound care as per surgery/Wound consult recommendations Status: Acute (9) Atrial flutter with rapid ventricular response: Problem details: - Rate controlled on digoxin and metoprolol, no acute cardiovascular issues currently - Eliquis for prophylaxis - on admission (03/02) patient placed on a diltiazem GTT - transitioned well to oral metoprolol and digoxin, oral Eliquis for ppx - discussed case with Dr. Medina of Cardiology on 03/06: Patient remains hemodynamically stable and rate controlled at this time, outpatient cardiology follow-up - TTE obtained 03/03 Final Impressions: 1. Technically very limited exam. 2. Normal LV size, normal global systolic function with an estimated EF of 60 - 65%. 3. Enlarged RV w/ reduced function, incompletely visualized. 4. Moderately enlarged left atrium. 5. No hemodynamically significant valve disease detected. Status: Acute (10) Protein-calorie malnutrition, mild: Problem details: Albumin consistently low at 2.6-2.8. Total cholesterol 103. Her weight was as high as 177 kg while in hospital (03/23/2022). On admission her weight was measured at 154 kg (03/02/2022). On 04/16/2022 her weight is 143 kg. 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 Much of the weight loss is readily attributable to diuresis efforts, but some of it is indeed attributable to loss of lean body mass. Status: Acute (11) Sarcopenia: Problem details: - Consistent with her malnourished state - Striving to improve muscle strength and endurance Status: Acute (12) Euthyroid sick syndrome: Problem details: TSH 9.1 on 03/25/2022, with normal T4 and T3. Recommend re-check TSH in June 2022. Status: Acute (13) Iron deficiency anemia secondary to blood loss (chronic): Problem details: Monitor hemoglobin periodically. Started iron supplementation 325 mg of ferrous sulfate once daily on 04/15/2022. Status: Acute (14) Living accommodation issues: Problem details: Our social science professor staff have been arduous line working with the patient and numerous living setting centers across the state since she was admitted - over 100 so far. They will continue to work toward establishing a safe discharge disposition plan. Status: Acute Plan 1. Reviewed with patient. 2. Answered her questions. 3. Patient agreeable with above stated plans and recommendations. Time Spent With Patient Total time spent: 25 minutes Subjective Time Seen by Provider: 12:00 Date Seen: 04/16/22 Interval history: Hospital day number 46. Emily was admitted to the hospital on 03/02/22 for generalized weakness; noted to be in atrial flutter during ER evaluation. Other notable findings throughout stay: Sacral wound, dysfunctional uterine bleeding (DUB, seen by Gynecology), depression/anhedonia, weight management, lymphedema. Initially her overweight status and profound weakness prevented placement outside of the hospital. Patient continues to work with therapies and our nutrition team. Her Hgb has fallen to 10.4 (baseline 11.5-12), asymptomatic. Tolerating Provera and bleeding has not worsened - initial dose was 10 mg twice daily, and current dose is now at 20 mg twice daily. For a while, her persistent DUB was limiting our TCU/LTC placement; and managing this as an outpatient/transfer is also proving difficult. Initiated ferrous sulfate 325 mg po daily on 04/15/2022. Will need monitoring of hemoglobin intermittently. She continues to work on the physical therapy and occupational therapy recommended daily regimen with support from the nursing staff. Able to stand for 4 minutes now, vastly improved from not being able to stand at all initially. Dysfunctional uterine bleeding much improved, with only spotting the past couple of days - some days she has only spotting, and other days more than spotting, but no longer brisk bleeding as previously. Exam Narrative: Exam Narrative: Appears comfortable and in no acute distress. Friendly and cooperative. Articulate and thoughtful. Mood and affect are congruent. Alert and oriented to self, place, time, situation. Moves all 4 extremities. No focal motor neurologic deficits. Lungs clear to auscultation. Heart tones with regular rhythm, normal S1-S2. Abdomen with active bowel sounds, soft, nontender. Const: Vital Signs, click to edit/add: Vital Signs - 24 hr 04/15/22 15:00 04/15/22 15:00 04/15/22 19:00 Temperature 98.4 F Pulse Rate [Pulse Oximeter] 68 98 Respiratory Rate 18 Blood Pressure [Ri ght Arm] 138/68 Pulse Oximetry 97 96 Oxygen Delivery Me thod Room Air Room Air Fraction of Inspir ed Oxygen 04/15/22 23:00 04/15/22 23:00 04/16/22 07:00 Temperature Pulse Rate [Pulse Oximeter] 98 78 Respiratory Rate 18 Blood Pressure [Ri ght Arm] Pulse Oximetry 96 Oxygen Delivery Me thod Room Air Fraction of Inspir ed Oxygen 04/16/22 07:00 04/16/22 07:00 04/16/22 12:38 Temperature 97.9 F Pulse Rate [Pulse Oximeter] 73 Respiratory Rate 18 Blood Pressure [Ri ght Arm] 130/70 Pulse Oximetry 98 98 Oxygen Delivery Me thod Room Air Room Air Fraction of Inspir ed Oxygen 0.21 Documenting provider has reviewed patient's vital signs: yes Labs Labs: Laboratory Results - last 24 hr 04/16/22 04/16/22 06:10 06:10 Hgb 10.8 L Absolute Retic 0.06 Percent Retic 1.4 Immature Retic Fraction 15.1 Retic Hgb Equivalent 26.0 L Ferritin 23.6
[2022-04-16 15:00] VITALS: PULSE 73; O2SAT 98
[2022-04-16 19:00] VITALS: BP 131/58; PULSE 68; RESP 18; TEMP 37.3; O2SAT 97
--- NOTE | 2022-04-16 19:03 | PC.NURSE ---
Pt alert and oriented x3. Pt denies pain, chest pain, SOB, and N/V. Dressing to Pts right buttocks is CDI. Pt had shower today. Pts leg dressing were changed today 04/16/22 and are CDI, pt tolerated well. Pt is up with EZ stand with A2 to commode and chair. Pt williamson is patent and draining. Pt is tolerating 2100 annalee diet. Pt was weighted today 04/16/22 with both the EZ stand at 312 lbs and bed weight at 307 lb twice. Pt charted weight was 310 lbs due to difference.
[2022-04-16] MEDS: MELATONIN 3 MG TABLET PO (21:59)
[2022-04-16] MEDS: ACETAMINOPHEN 325 MG TABLET 975 MG PO (21:59)
[2022-04-16 23:00] VITALS: RESP 18; O2SAT 98
--- NOTE | 2022-04-17 05:26 | PC.NURSE ---
[id number] Pt pleasant and cooperative, did evening leg and arm exercises as recommended. slept well during night with Bipap on. denies pain, sob, chest pain or headache.
[2022-04-17 07:00] VITALS: BP 120/66; PULSE 77; RESP 18; TEMP 36.7; O2SAT 97
[2022-04-17] MEDS: CHOLESTYRAMINE POWDER 4 GM PO ×2 (08:08→18:06)
[2022-04-17] MEDS: FERROUS SULFATE 325 MG TABLET PO (08:08)
[2022-04-17] MEDS: FUROSEMIDE 40 MG TABLET PO (08:08)
[2022-04-17] MEDS: LACTOBACILLUS ACIDOPHILUS 1 TABLET 1 TAB PO ×3 (08:08→18:06)
[2022-04-17] MEDS: NYSTATIN POWDER 1 APPLIC TOPICAL ×2 (08:31→21:22)
[2022-04-17] MEDS: DIGOXIN 250 MCG TABLET PO (08:31)
[2022-04-17] MEDS: POTASSIUM CHLORIDE 10 MEQ CAPSULE ER 20 MEQ PO ×2 (08:31→18:06)
[2022-04-17] MEDS: LOPERAMIDE HCL 2 MG CAPSULE PO (08:32)
[2022-04-17] MEDS: SPIRONOLACTONE 25 MG TABLET PO (08:32)
[2022-04-17] MEDS: METOPROLOL TARTRATE 100 MG TABLET PO ×2 (08:32→21:22)
[2022-04-17] MEDS: MEDROXYPROGESTERONE 5 MG TABLET 20 MG PO ×2 (08:33→21:22)
[2022-04-17] MEDS: SERTRALINE 50 MG TABLET PO (08:33)
[2022-04-17] MEDS: APIXABAN 5 MG TABLET PO ×2 (10:45→21:22)
--- NOTE | 2022-04-17 11:19 | P.IMPN_ITS ---
Progress Note: A&P Assessment and plan (1) Vaginal bleeding: Problem details: - on apixaban for Aflutter; at this time, very high risk for thromboembolic event given comorbidities and immobility - still in rate controlled Atrial flutter by ECG on 04/08 - EUA, EMB and Pap smear 03/12/22 (negative HPV, atypical glandular proliferation). Appreciate Gynecology support; please see final consult note from 03/19/22 - 03/19: Dr. Wagner recommended starting Provera 10mg QD for endometrial protection, until she can safely pursue other surgical options (D&C/hysterectomy, etc) - Progesterone initiated 03/21/22 - 04/02: vaginal bleeding as become more brisk - like a medium/moderate menses without clots or cramping - 04/05: vaginal bleeding increased, on 04/06 Dr. Edgar Galloway recommended increasing provera to 20mg BID. Bleeding persists, mildly decreased - 04/09: reviewed with Dr. Valdez at [facility] to discuss possibility of transfer vs outpatient f/u; Dr. Valdez notes that we could consider [facility] referral given pap results - watermelon harvesting supervisor plan: hysterectomy in the months ahead; short-term, if needed: D&C vs ablation vs embolization (would require a day trip to IR), plan pending clinical course Status: Acute (2) Weakness generalized: Problem details: - patient continues to make progress, although limited. Requiring 1 person assist to the EZ stand; using WC. Requires TCU at this juncture but ultimate goal is to return to independent living (suspect a wheelchair accommodated apartment in assisted living will be needed) - + fall risk - requires bariatric equipment - we are still seeking TCU placement - PT and OT are no longer rounding - she is working daily on reconditioning exercises provided to her by the physical therapy and occupational therapy staff - strict daily weights. Status: Acute (3) Pressure ulcer of buttock: Problem details: - General surgery, I&D in OR 03/04. Dr. Rice will round 2x/week while patient is here - Zosyn initiated on admission, discontinued on 03/06 - wound care is progressing and now is only needed M.W.F and prn Status: Acute (4) Lymphedema associated with obesity: Problem details: - Continue to work on compression and lymphedema pumps - nutrition has been on top of calorie counts, and limited healthy menu. weights vary but slowly decreasing net total weight. - DME request to our 3rd constitution party vendor for lymphedema pumps (IN USE!), as well as a walking sling (ORDERED) - continue trial of Lasix and spironolactone to help alleviate some of her edema, POTASSIUM AND CREATINE ARE STABLE. ON K REPLACEMENT. Status: Acute (5) Diarrhea: Problem details: - This has been resolved for several weeks - was not associated with abdominal pain or cramping - negative C diff, normal TSH - possibly iatrogenic (however, present prior to initiating Zoloft); not currently on antibiotics - has made diet changes, scheduled cholestyramine and loperamide with hold parameters - 04/05: improved, patient believes improvement 04/02 discontinuing nutritional supplements, declines any further supplements, working on adequate dietary protein - 04/07: Nutrition spoke with patient about protein snacks, etc. instead of nutritional supplements Status: Acute (6) Adjustment disorder: Problem details: - started zoloft 25mg on 03/13, increased to 50mg 03/24 Status: Acute (7) Acute respiratory failure with hypercapnia: Problem details: - Nocturnal, suggestive of obstructive sleep apnea. - Current BiPAP settings of 18 cm H20 iPap/10 cm H20 ePap, patient tolerates this well - Following gases intermittently Status: Acute (8) Incontinence associated dermatitis: Problem details: - continue williamson and prn loperamide for loose stools (c. diff negative), also working on diet changes to limit diarrhea - continue wound care as per surgery/Wound consult recommendations Status: Acute (9) Atrial flutter with rapid ventricular response: Problem details: - Rate controlled on digoxin and metoprolol, no acute cardiovascular issues currently - Eliquis for prophylaxis - on admission (03/02) patient placed on a diltiazem GTT - transitioned well to oral metoprolol and digoxin, oral Eliquis for ppx - discussed case with Dr. Medina of Cardiology on 03/06: Patient remains hemodynamically stable and rate controlled at this time, outpatient cardiology follow-up - TTE obtained 03/03 Final Impressions: 1. Technically very limited exam. 2. Normal LV size, normal global systolic function with an estimated EF of 60 - 65%. 3. Enlarged RV w/ reduced function, incompletely visualized. 4. Moderately enlarged left atrium. 5. No hemodynamically significant valve disease detected. Status: Acute (10) Protein-calorie malnutrition, mild: Problem details: Albumin consistently low at 2.6-2.8. Total cholesterol 103. Her weight was as high as 177 kg while in hospital (03/23/2022). On admission her weight was measured at 154 kg (03/02/2022). On 04/17/2022 her weight is 141 kg. 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 Much of the weight loss is readily attributable to diuresis efforts, but some of it is indeed attributable to loss of lean body mass. Status: Acute (11) Sarcopenia: Problem details: - Consistent with her malnourished state - Striving to improve muscle strength and endurance, and slowly improving Status: Acute (12) Euthyroid sick syndrome: Problem details: TSH 9.1 on 03/25/2022, with normal T4 and T3. Recommend re-check TSH in June 2022. Status: Acute (13) Iron deficiency anemia secondary to blood loss (chronic): Problem details: Monitor hemoglobin periodically. Started iron supplementation 325 mg of ferrous sulfate once daily on 04/15/2022 - tolerating. Status: Acute (14) Living accommodation issues: Problem details: Our social services assistant staff have been arduous line working with the patient and numerous living setting centers across the state since she was admitted - over 100 so far. They will continue to work toward establishing a safe discharge disposition plan. Status: Acute Plan 1. Reviewed above plan with patient. Answered her questions. 2. Patient agreeable to above stated plans and recommendations. Time Spent With Patient Total time spent: 20 minutes Subjective Time Seen by Provider: 10:30 Date Seen: 04/17/22 Interval history: Hospital day 47 - the main reason for her prolonged hospital stay has to do with inability to place patient in an appropriately save post hospital setting, limited resources available to help her due to her obesity, weakness/sarcopenia, and in part due to her dysfunctional uterine bleeding. Emily was admitted to the hospital on 03/02/22 for generalized weakness; noted to be in atrial flutter during ER evaluation. Other notable findings throughout stay: Sacral wound, dysfunctional uterine bleeding (DUB, seen by Gynecology), depression/anhedonia, weight management, lymphedema. Initially her overweight status and profound weakness prevented placement outside of the hospital. Patient continues to work with therapies and our nutrition team. Her Hgb has fallen to 10.4 (baseline 11.5-12), asymptomatic. Tolerating Provera and bleeding has not worsened - initial dose was 10 mg twice daily, and current dose is now at 20 mg twice daily. For a while, her persistent DUB was limiting our TCU/LTC placement; and managing this as an outpatient/transfer is also proving difficult. Initiated ferrous sulfate 325 mg po daily on 04/15/2022, which he is tolerating. Will need monitoring of hemoglobin intermittently. She continues to work on the physical therapy and occupational therapy recommended daily regimen with support from the nursing staff. Able to stand for 4.5 minutes now, vastly improved from not being able to stand at all initially. Dysfunctional uterine bleeding much improved, with only spotting now, no longer brisk bleeding as previously. Exam Narrative: Exam Narrative: No acute distress. Appears comfortable. Alert, oriented to self, place, time, situation. Articulate, cooperative. Mood and affect are congruent. Vision and hearing are grossly normal. Dentition in fair repair. Moves all 4 extremities. Weakness of lower extremities particular. Now able to stand 4-1/2 minutes. Lungs remain clear to auscultation. Heart tones with regular rhythm. Abdomen is obese with active bowel sounds, soft, nontender. Weight is down to 140.6 kg, roughly 310 lb. Const: Vital Signs, click to edit/add: Vital Signs - 24 hr 04/16/22 12:38 04/16/22 15:00 04/16/22 15:00 Temperature Pulse Rate [Pulse Oximeter] 73 Respiratory Rate Blood Pressure [Le ft Arm] Pulse Oximetry 98 Oxygen Delivery Me thod Room Air Oxygen Flow Rate Fraction of Inspir ed Oxygen 0.21 04/16/22 19:00 04/16/22 23:00 04/17/22 07:00 Temperature 99.1 F Pulse Rate [Pulse Oximeter] 68 77 Respiratory Rate 18 18 18 Blood Pressure [Le ft Arm] 131/58 L Pulse Oximetry 97 98 Oxygen Delivery Me thod Room Air BiPAP Oxygen Flow Rate 8 Fraction of Inspir ed Oxygen 0.21 04/17/22 07:00 04/17/22 07:00 Temperature 98.0 F Pulse Rate [Pulse Oximeter] 77 Respiratory Rate 18 18 Blood Pressure [Le ft Arm] 120/66 Pulse Oximetry 97 97 Oxygen Delivery Me thod Room Air Room Air BiPAP Oxygen Flow Rate 8 8 Fraction of Inspir ed Oxygen 0.21 0.21 Documenting provider has reviewed patient's vital signs: yes
--- NOTE | 2022-04-17 13:07 | PC.SOCIAL ---
Contacted the following SNF's for potential placement. [facility]-Received a voicemail from Kinga at [phone] Ext. [phone]. Kinga provided fax number for referral of [phone]. Faxed referral for assessment. 2. [facility] in [place]- phone call to admissions at [phone]. There are openings. Faxed referral to [phone]. 3. [facility] in [place]- phone call to [phone]. Facility has central admissions that is reached at [phone]. Left a voicemail and faxed referral for assessment to [phone]. 4. [facility] in [place]- Phone call to admissions at [phone]. Left a voicemail with Evelia in admissions. Faxed referral to [phone] [facility] in [place]- Phone call to [phone]. Facility has central admissions that is reached at [phone]. Left a voicemail and faxed referral for assessment to [phone]. 6. [facility] in [place]- Phone call to admissions at [phone]. There will be an opening middle of next week. Faxed referral to [phone]. 7. [facility] in [place]- Phone call to admissions at [phone]. Left a voicemail inquiring on bed availability. [facility] Phone call to admissions at [phone]. Left a voicemail inquiring on bed availability. Received a phone call back declining pt due to no open beds and staffing shortage. They do not see any openings any time soon coming available. 9. [facility]- Phone call to admissions at [phone]. Left a voicemail for Cedric inquiring on bed availability. 10. [facility]- Phone call to Admissions at [phone]. Left a voicemail inquiring on bed availability. 11. [facility] [place]- Phone call to Monica in admissions at [phone]. Left a voicemail inquiring on bed availability. 12. [facility]- Phone call to Kasey in admissions at [phone]. Left a voicemail inquiring on bed availability. 13. [facility]- Contacted Shital in admissions at [phone]. admissions declined pt due to the facility being unable to accept [place] as a payor source and there is a strong possibility that pt could become a chcf placement. 14. [facility] [place]- phone call to admissions at [phone]. Left a voicemail inquiring on bed availability. 15. [facility]- phone call to admissions at [phone]. Left a voicemail inquiring on bed availability. 16. [facility] in [place]- Phone call to admissions at [phone]. Spoke to Giulia and she informed that there are no available beds and she don't believe there will be any availability any time soon. 17. [facility]- Phone call to admissions at [phone]. Left a voicemail for Patsy inquiring on bed availability. 18. [facility]- Phone call to admissions at [phone]. Left a voicemail with Valentine inquiring on bed availability. 19. [facility] in [place]- Phone call to admissions [phone]. Left a voicemail inquiring on bed availability. 20. [facility]- Phone call to admissions at [phone]. Spoke to Emily in admissions. There are no open beds and there is a very long wait list. SNF will not accept referral at this time. 21. [facility]- Phone call to admissions at [phone]. Left a voicemail inquiring on bed availability. 22. [facility] in [place]- Phone call to admissions at [phone]. There are no open beds at this time and they are not accepting new referrals. 23. [facility]- Phone call to admissions at [phone]. Left a voicemail with Esperanza inquiring on bed availability. 24. [facility]- phone call to Mariana Pimentel in admissions at [phone]. Left a voicemail with Mariana inquiring on bed availability. 25. [facility] in [place]. Phone call to admissions at [phone]. Left a voicemail with Mi inquiring on bed availability. Faxed referral to [phone]. 26. [facility]- Phone call to [phone]. Facility has central admissions that can be reached at [phone]. Spoke to Bella and there are openings. Faxed referral to [phone]. 27. [facility] in [place]- Phone call to admissions at [phone]. Left a voicemail inquiring on bed availability. 28. [facility] in [place]- Phone call to admissions at [phone]. Left a voicemail with Mi inquiring on bed availability. Social Work will continue to follow up as necessary.
[2022-04-17 15:00] VITALS: PULSE 77; RESP 18; O2SAT 97
--- NOTE | 2022-04-17 18:35 | PC.NURSE ---
End of shift note: Patient pleasant and cooperative. VSS, lungs clear, BS WNL, NO IV. Pt. denies N/V/SOB/Pain. Pt. 2 assist/EZ-stand to commode. Alie-cares performed in morning using (vaushe and mepilex). Pt. had 1 BM, med formed in commode. Pt. able to perform her own morning cares in wheelchair (teeth, hair, face-wash), then transfer to recliner remainder of shift. Pt. continues to have a moderate amount of vaginal bleeding. Pt. completed exercises in recliner and using EZ stand, tolerated activity well.
[2022-04-17 20:35] VITALS: BP 130/76; PULSE 75; RESP 18; TEMP 36.9; O2SAT 98
[2022-04-17 23:00] VITALS: RESP 18; O2SAT 98
[2022-04-17] MEDS: MELATONIN 3 MG TABLET PO (23:00)
[2022-04-18] MEDS: ACETAMINOPHEN 325 MG TABLET 975 MG PO (00:42)
--- NOTE | 2022-04-18 06:31 | PC.NURSE ---
[id number]: Patient pleasant and cooperative. Denies pain but c/o muscle aches from doing my exercises. A2/Ez-stand. Tolerates well. Patient agreeable to completing HS cares independently from WC. Tylenol administered for headache. Bed weight obtained. See Daily Weight comment. BiPAP on during noc.
[2022-04-18 07:00] VITALS: BP 112/69; PULSE 70; RESP 18; TEMP 36.9; O2SAT 97
[2022-04-18] MEDS: CHOLESTYRAMINE POWDER 4 GM PO ×2 (09:54→17:34)
[2022-04-18] MEDS: NYSTATIN POWDER 1 APPLIC TOPICAL ×2 (09:54→20:12)
[2022-04-18] MEDS: MEDROXYPROGESTERONE 5 MG TABLET 20 MG PO ×2 (09:55→20:11)
[2022-04-18] MEDS: POTASSIUM CHLORIDE 10 MEQ CAPSULE ER 20 MEQ PO ×2 (09:55→17:33)
[2022-04-18] MEDS: APIXABAN 5 MG TABLET PO ×2 (09:56→20:11)
[2022-04-18] MEDS: METOPROLOL TARTRATE 100 MG TABLET PO ×2 (09:56→20:11)
[2022-04-18] MEDS: SERTRALINE 50 MG TABLET PO (09:56)
[2022-04-18] MEDS: LOPERAMIDE HCL 2 MG CAPSULE PO (09:56)
[2022-04-18] MEDS: FERROUS SULFATE 325 MG TABLET PO (09:56)
[2022-04-18] MEDS: FUROSEMIDE 40 MG TABLET PO (09:56)
[2022-04-18 09:57] VITALS: PULSE 70
[2022-04-18] MEDS: DIGOXIN 250 MCG TABLET PO (09:57)
[2022-04-18] MEDS: LACTOBACILLUS ACIDOPHILUS 1 TABLET 1 TAB PO ×3 (09:57→17:34)
[2022-04-18] MEDS: SPIRONOLACTONE 25 MG TABLET PO (09:59)
[2022-04-18 12:22] VITALS: RESP 20
--- NOTE | 2022-04-18 12:26 | RESP.RT ---
Patient sitting up in chair, resting comfortably. Patient stated had restless night with BiPAP, mask issues. Patient has XL mask, re-fitted patient with Large, good fit, patient comfortable with mask and settings, Leak 22-30. Will use Large mask tonight. XL mask still in room if needed. Nurse informed of change/refit of mask.
--- NOTE | 2022-04-18 13:58 | P.IMPN_ITS ---
Progress Note: A&P Assessment and plan (1) Acute respiratory failure with hypercapnia: Problem details: - Nocturnal, suggestive of obstructive sleep apnea. - Current BiPAP settings of 18 cm H20 iPap/10 cm H20 ePap, patient tolerates this well - Following gases intermittently Status: Acute (2) Atrial flutter with rapid ventricular response: Problem details: - Rate controlled on digoxin and metoprolol, no acute cardiovascular issues currently - Eliquis for prophylaxis - on admission (03/02) patient placed on a diltiazem GTT - transitioned well to oral metoprolol and digoxin, oral Eliquis for ppx - discussed case with Dr. Medina of Cardiology on 03/06: Patient remains hemodynamically stable and rate controlled at this time, outpatient cardiology follow-up - TTE obtained 03/03 Final Impressions: 1. Technically very limited exam. 2. Normal LV size, normal global systolic function with an estimated EF of 60 - 65%. 3. Enlarged RV w/ reduced function, incompletely visualized. 4. Moderately enlarged left atrium. 5. No hemodynamically significant valve disease detected. Status: Acute (3) Vaginal bleeding: Problem details: - on apixaban for Aflutter; at this time, very high risk for thromboembolic event given comorbidities and immobility - still in rate controlled Atrial flutter by ECG on 04/08 - EUA, EMB and Pap smear 03/12/22 (negative HPV, atypical glandular proliferation). Appreciate Gynecology support; please see final consult note from 03/19/22 - 03/19: Dr. Wagner recommended starting Provera 10mg QD for endometrial protection, until she can safely pursue other surgical options (D&C/hysterectomy, etc) - Progesterone initiated 03/21/22 - 04/02: vaginal bleeding as become more brisk - like a medium/moderate menses without clots or cramping - 04/05: vaginal bleeding increased, on 04/06 Dr. Edgar Galloway recommended increasing provera to 20mg BID. Bleeding persists, mildly decreased - 04/09: reviewed with Dr. Valdez at [facility] to discuss possibility of transfer vs outpatient f/u; Dr. Valdez notes that we could consider [facility] [employer] [facility]-Onc referral given pap results - senior care plan: hysterectomy in the months ahead; short-term, if needed: D&C vs ablation vs embolization (would require a day trip to IR), plan pending clinical course Status: Acute (4) Hematuria: Problem details: Possibly secondary to over distended bladder upon presentation combined with anticoagulation with Eliquis for atrial flutter. Renal ultrasound 03/04/2022 was unremarkable. Hemoglobin stable. UA repeated shows elevated urine wbc's, UC - no bacteria, +some yeast. Will need outpatient urology consultation. Status: Acute (5) Stage III pressure ulcer of buttock: Problem details: stage III right buttock pressure ulcer. She also has a stage II left buttock pressure ulcer. Alternating pressure mattress in place. Status: Acute (6) Fall: Problem details: - secondary to weakness and deconditioning - on the ground for 3 days prior to admission Status: Acute (7) Incontinence associated dermatitis: Problem details: - continue williamson and prn loperamide for loose stools (c. diff negative), also working on diet changes to limit diarrhea - continue wound care as per surgery/Wound consult recommendations Status: Acute (8) Lymphedema associated with obesity: Problem details: - Continue to work on compression and lymphedema pumps - nutrition has been on top of calorie counts, and limited healthy menu. weights vary but slowly decreasing net total weight. - DME request to our 3rd green party vendor for lymphedema pumps (IN USE!), as well as a walking sling (ORDERED) - continue trial of Lasix and spironolactone to help alleviate some of her edema, POTASSIUM AND CREATINE ARE STABLE. ON K REPLACEMENT. 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 Did not think to call for help when she was on the floor for several days when she 1st presented. Status: Acute (11) Weakness generalized: Problem details: - patient continues to make progress, although limited. Requiring 1 person as sist to the EZ stand; using WC. Requires TCU at this juncture but ultimate goal is to return to independent living (suspect a wheelchair accommodated apartment in assisted living will be needed) - + fall risk - requires bariatric equipment - we are still seeking TCU placement - PT and OT are no longer rounding - she is working daily on reconditioning exercises provided to her by the physical therapy and occupational therapy staff - strict daily weights. Status: Acute (12) Adjustment disorder: Problem details: - started zoloft 25mg on 03/13, increased to 50mg 03/24 Status: Acute (13) Diarrhea: Problem details: - This has been resolved for several weeks - was not associated with abdominal pain or cramping - negative C diff, normal TSH - possibly iatrogenic (however, present prior to initiating Zoloft); not currently on antibiotics - has made diet changes, scheduled cholestyramine and loperamide with hold parameters - 04/05: improved, patient believes improvement 04/02 discontinuing nutritional supplements, declines any further supplements, working on adequate dietary protein - 04/07: Nutrition spoke with patient about protein snacks, etc. instead of nutritional supplements Status: Acute (14) Protein-calorie malnutrition, mild: Problem details: Albumin consistently low at 2.6-2.8. Total cholesterol 103. Her weight was as high as 177 kg while in hospital (03/23/2022). On admission her weight was measured at 154 kg (03/02/2022). On 04/17/2022 her weight is 141 kg. 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 Much of the weight loss is readily attributable to diuresis efforts, but some of it is indeed attributable to loss of lean body mass. Status: Acute (15) Sarcopenia: Problem details: - Consistent with her malnourished state - Striving to improve muscle strength and endurance, and slowly improving Status: Acute (16) Euthyroid sick syndrome: Problem details: TSH 9.1 on 03/25/2022, with normal T4 and T3. Recommend re-check TSH in June 2022. Status: Acute (17) Iron deficiency anemia secondary to blood loss (chronic): Problem details: Monitor hemoglobin periodically. Started iron supplementation 325 mg of ferrous sulfate once daily on 04/15/2022 - tolerating. Status: Acute (18) Living accommodation issues: Problem details: Our social services analyst staff have been arduous line working with the patient and numerous living setting centers across the state since she was admitted - over 100 so far. They will continue to work toward establishing a safe discharge disposition plan. Status: Acute Plan Continue in-hospital for strengthening, dietary management of obesity, wound care pending safe discharge plan Time Spent With Patient Total time spent: Total time spent today is 40 minutes, 30 minutes in coordination of care discussing with patient ongoing evaluation and management of chronic medical problems and disposition Subjective Date Seen: 04/18/22 Interval history: 72-year-old female seen in followup of hospitalization for inability to care for herself with morbid obesity, weakness, sacral ulcer, diabetes, atrial flutter with rapid ventricular response. Patient reports generally doing well. She feels like she is slowly making progress with therapy and mobility. She has continued to lose weight and is happy about that. She does have intermittent vaginal bleeding. Evaluation has recommended surgery for this but to be done at a tertiary care center. Continue Provera treatment She has no other concerns today. Exam Narrative: Exam Narrative: She is alert and appears in no distress. She is oriented to her circumstances. Mood and affect are appropriate congruent. Respirations are clear to auscultation. Cardiovascular: S1, S2, regular rate and rhythm. Abdomen: Bowel sounds active. Abdomen is soft without tenderness or mass. Extremities with compression in place. Trace edema. Dry skin without ulceration. Const: Vital Signs, click to edit/add: Vital Signs - 24 hr 04/17/22 15:00 04/17/22 15:00 04/17/22 20:35 Temperature 98.4 F Pulse Rate Pulse Rate [Pulse Oximeter] 77 75 Respiratory Rate 18 18 18 Blood Pressure [Le ft Arm] 130/76 Pulse Oximetry 97 98 Oxygen Delivery Me thod Room Air BiPAP Room Air BiPAP Oxygen Flow Rate 8 Fraction of Inspir ed Oxygen 0.21 04/17/22 23:00 04/18/22 09:57 04/18/22 07:00 Temperature Pulse Rate 70 Pulse Rate [Pulse Oximeter] 70 Respiratory Rate 18 18 Blood Pressure [Le ft Arm] Pulse Oximetry 98 Oxygen Delivery Az thod Room Air BiPAP Oxygen Flow Rate 8 Fraction of Inspir ed Oxygen 0.21 04/18/22 07:00 04/18/22 07:00 04/18/22 12:22 Temperature 98.4 F Pulse Rate Pulse Rate [Pulse Oximeter] 70 Respiratory Rate 18 18 Blood Pressure [Le ft Arm] 112/69 Pulse Oximetry 97 97 Oxygen Delivery Me thod Room Air Room Air BiPAP Oxygen Flow Rate 8 Fraction of Inspir ed Oxygen 0.21 21 04/18/22 12:22 Temperature Pulse Rate Pulse Rate [Pulse Oximeter] Respiratory Rate 20 Blood Pressure [Le ft Arm] Pulse Oximetry Oxygen Delivery Me thod Room Air Oxygen Flow Rate Fraction of Inspir ed Oxygen Documenting provider has reviewed patient's vital signs: yes
[2022-04-18 15:00] VITALS: O2SAT 97
[2022-04-18 19:00] VITALS: BP 121/58; PULSE 75; RESP 18; TEMP 36.4; O2SAT 97
--- NOTE | 2022-04-18 19:35 | PC.NURSE ---
150: Pt. up to chair this shift, completing exercises with off-going nurse and GIORGIO. Denies pain. Legs cleansed, lotion applied, and re-wrapped per Q48H order. Pt. ordered meal from specified menu choices. Ghosh draining pale yellow, somewhat cloudy urine. Pt. very pleasant this shift.
[2022-04-18] MEDS: MELATONIN 3 MG TABLET PO (22:25)
[2022-04-18 23:00] VITALS: RESP 18
--- NOTE | 2022-04-19 06:27 | PC.NURSE ---
Status [id number] Alert and oriented. Denies pain. VSS on room air. Wearing bipap overnight. Transferring with EZ stand with assist of 2. Able to complete HS cares per self. Continues to have vaginal bleeding. Dressing applied to right buttock wound. Indwelling catheter patent. BM x1. Alie care and catheter care completed at bedtime. PRN melatonin given. Pt observed resting well throughout night. ?
[2022-04-19 07:00] VITALS: BP 140/72; PULSE 85; RESP 18; TEMP 36.7; O2SAT 98
[2022-04-19] MEDS: CHOLESTYRAMINE POWDER 4 GM PO ×2 (08:56→17:52)
[2022-04-19 08:57] VITALS: PULSE 85
[2022-04-19] MEDS: LOPERAMIDE HCL 2 MG CAPSULE PO (08:57)
[2022-04-19] MEDS: DIGOXIN 250 MCG TABLET PO (08:57)
[2022-04-19] MEDS: FERROUS SULFATE 325 MG TABLET PO (08:57)
[2022-04-19] MEDS: METOPROLOL TARTRATE 100 MG TABLET PO ×2 (08:57→21:38)
[2022-04-19] MEDS: POTASSIUM CHLORIDE 10 MEQ CAPSULE ER 20 MEQ PO ×2 (08:57→17:51)
[2022-04-19] MEDS: FUROSEMIDE 40 MG TABLET PO (08:57)
[2022-04-19] MEDS: SERTRALINE 50 MG TABLET PO (08:59)
[2022-04-19] MEDS: APIXABAN 5 MG TABLET PO ×2 (08:59→21:38)
[2022-04-19] MEDS: LACTOBACILLUS ACIDOPHILUS 1 TABLET 1 TAB PO ×3 (08:59→17:52)
[2022-04-19] MEDS: MEDROXYPROGESTERONE 5 MG TABLET 20 MG PO ×2 (09:00→21:36)
[2022-04-19] MEDS: NYSTATIN POWDER 1 APPLIC TOPICAL ×2 (09:00→21:38)
[2022-04-19] MEDS: SPIRONOLACTONE 25 MG TABLET PO (09:00)
[2022-04-19 09:48] VITALS: RESP 18; O2SAT 94
--- NOTE | 2022-04-19 09:52 | RESP.RT ---
Patient stated slept good last night, mask fittest great, didn't move or leak. BiPAP checked, IPAP 18, EPAP 10, room air. Patient more active during the day with good nights sleep.
--- NOTE | 2022-04-19 13:18 | PM.IMPN1 ---
Progress Note: A&P Assessment and plan (1) Acute respiratory failure with hypercapnia: Problem details: On BiPAP Status: Acute (2) Atrial flutter with rapid ventricular response: Problem details: - Rate controlled on digoxin and metoprolol, no acute cardiovascular issues currently - Eliquis for prophylaxis - TTE obtained 03/03 Final Impressions: 1. Technically very limited exam. 2. Normal LV size, normal global systolic function with an estimated EF of 60 - 65%. 3. Enlarged RV w/ reduced function, incompletely visualized. 4. Moderately enlarged left atrium. 5. No hemodynamically significant valve disease detected. Status: Acute (3) Vaginal bleeding: Problem details: - on apixaban for Aflutter; at this time, very high risk for thromboembolic event given comorbidities and immobility - still in rate controlled Atrial flutter by ECG on 04/08 - EUA, EMB and Pap smear 03/12/22 (negative HPV, atypical glandular proliferation). Appreciate Gynecology support; please see final consult note from 03/19/22 - 03/19: Dr. Wagner recommended starting Provera 10mg QD for endometrial protection, until she can safely pursue other surgical options (D&C/hysterectomy, etc) - Progesterone initiated 03/21/22. - 04/02: vaginal bleeding as become more brisk - like a medium/moderate menses without clots or cramping - 04/05: vaginal bleeding increased, on 04/06 Dr. Edgar Galloway recommended increasing provera to 20mg BID. Bleeding persists but improved. - 04/09: reviewed with Dr. Valdez at [facility] to discuss possibility of transfer vs outpatient f/u; Dr. Valdez notes that we could consider [employer]-Onc referral given pap results - halfway plan: hysterectomy in the months ahead; short-term, if needed: D&C vs ablation vs embolization (would require a day trip to IR), plan pending clinical course Status: Acute (4) Hematuria: Problem details: Possibly secondary to over distended bladder upon presentation combined with anticoagulation with Eliquis for atrial flutter. Renal ultrasound 03/04/2022 was unremarkable. Hemoglobin stable. UA repeated shows elevated urine wbc's, UC - no bacteria, +some yeast. Will need outpatient urology consultation. Status: Acute (5) Stage III pressure ulcer of buttock: Problem details: stage III right buttock pressure ulcer. She also has a stage II left buttock pressure ulcer. Alternating pressure mattress in place. Status: Acute (6) Fall: Problem details: - secondary to weakness and deconditioning - on the ground for 3 days prior to admission. Continue to work on strengthening Status: Acute (7) Incontinence associated dermatitis: Problem details: - continue williamson and prn loperamide for loose stools (c. diff negative), also working on diet changes to limit diarrhea - continue wound care as per surgery/Wound consult recommendations Status: Acute (8) Lymphedema associated with obesity: Problem details: - Continue to work on compression and lymphedema pumps - nutrition has been on top of calorie counts, and limited healthy menu. weights vary but slowly decreasing net total weight. - DME request to our [employer]rd republic[employer] vendor for lymphedema pumps (IN USE!), as well as a walking sling (ORDERED) - continue trial of Lasix and spironolactone to help alleviate some of her edema, POTASSIUM AND CREATINE ARE STABLE. ON K REPLACEMENT. 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 Did not think to call for help when she was on the floor for several days when she 1st presented. Status: Acute (11) Weakness generalized: Problem details: - patient continues to make progress, although limited. Requiring 1 person assist to the EZ stand; using WC. Requires TCU at this juncture but ultimate goal is to return to independent living (suspect a wheelchair accommodated apartment in assisted living will be needed) - + fall risk - requires bariatric equipment - we are still seeking TCU placement - PT and OT are no longer rounding - she is working daily on reconditioning exercises provided to her by the physical therapy and occupational therapy staff - strict daily weights. Status: Acute (12) Adjustment disorder: Problem details: - started zoloft 25mg on 03/13, increased to 50mg 03/24 Status: Acute (13) Diarrhea: Problem details: - This has been resolved for several weeks - was not associated with abdominal pain or cramping - negative C diff, normal TSH - possibly iatrogenic (however, present prior to initiating Zoloft); not currently on antibiotics - has made diet changes, scheduled cholestyramine and loperamide with hold parameters - 04/05: improved, patient believes improvement 2/2 discontinuing nutritional supplements, declines any further supplements, working on adequate dietary protein - 04/07: Nutrition spoke with patient about protein snacks, etc. instead of nutritional supplements Status: Acute (14) Protein-calorie malnutrition, mild: Problem details: Albumin consistently low at 2.6-2.8. Total cholesterol 103. Her weight was as high as 177 kg while in hospital (03/23/2022). On admission her weight was measured at 154 kg (03/02/2022). On 04/17/2022 her weight is 141 kg. 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 Much of the weight loss is readily attributable to diuresis efforts, but some of it is indeed attributable to loss of lean body mass. Status: Acute (15) Sarcopenia: Problem details: - Consistent with her malnourished state - Striving to improve muscle strength and endurance, and slowly improving Status: Acute (16) Euthyroid sick syndrome: Problem details: TSH 9.1 on 03/25/2022, with normal T4 and T3. Recommend re-check TSH in June 2022. Status: Acute (17) Iron deficiency anemia secondary to blood loss (chronic): Problem details: Monitor hemoglobin periodically. Started iron supplementation 325 mg of ferrous sulfate once daily on 04/15/2022 - tolerating. Status: Acute (18) Living accommodation issues: Problem details: Our child protective services social worker staff have been arduous line working with the patient and numerous living setting centers across the state since she was admitted - over 100 so far. They will continue to work toward establishing a safe discharge disposition plan. Status: Acute Plan Continue in-hospital for treatment of above medical problems and pending safe discharge plan Time Spent With Patient Total time spent: Total time spent today is 15 minutes, all that time in coordination of care discussing with patient ongoing evaluation and management Subjective Date Seen: 04/19/22 Interval history: 72-year-old female seen in followup multiple medical problems. She reports doing well today with no concerns. She still having a small amount of vaginal bleeding. Unchanged from yesterday. She is down to 304 lb today. She is quite happy with that. She has continued to do exercises in her chair. Exam Narrative: Exam Narrative: She is alert no distress. She is oriented to her circumstances. Mood and affect are bright. Respirations unlabored. Extremities with trace edema. Const: Vital Signs, click to edit/add: Vital Signs - 24 hr 04/18/22 15:00 04/18/22 19:00 04/18/22 23:00 Temperature 97.5 F L Pulse Rate Pulse Rate [Pulse Oximeter] 75 Respiratory Rate 18 18 Blood Pressure [Le ft Arm] 121/58 L Pulse Oximetry 97 97 Oxygen Delivery Me thod Room Air Room Air BiPAP Oxygen Flow Rate Fraction of Inspir ed Oxygen 21 04/18/22 23:00 04/19/22 08:57 04/19/22 09:48 Temperature Pulse Rate 85 Pulse Rate [Pulse Oximeter] Respiratory Rate 18 Blood Pressure [Le ft Arm] Pulse Oximetry Oxygen Delivery Me thod Oxygen Flow Rate Fraction of Inspir ed Oxygen 21 04/19/22 09:48 04/19/22 07:00 04/19/22 07:00 Temperature Pulse Rate Pulse Rate [Pulse Oximeter] 85 Respiratory Rate 18 18 18 Blood Pressure [Le ft Arm] Pulse Oximetry 94 98 Oxygen Delivery Me thod Room Air Room Air Oxygen Flow Rate 8 Fraction of Inspir ed Oxygen 21 04/19/22 07:00 Temperature 98.0 F Pulse Rate Pulse Rate [Pulse Oximeter] 85 Respiratory Rate 18 Blood Pressure [Le ft Arm] 140/72 H Pulse Oximetry 98 Oxygen Delivery Me thod Room Air Oxygen Flow Rate 8 Fraction of Inspir ed Oxygen 21 Documenting provider has reviewed patient's vital signs: yes
[2022-04-19 15:00] VITALS: PULSE 85; RESP 18; O2SAT 97
[2022-04-19 19:00] VITALS: BP 136/96; PULSE 91; RESP 18; TEMP 36.9; O2SAT 95
--- NOTE | 2022-04-19 19:02 | PC.NURSE ---
End of shift note: Patient pleasant and cooperative. VSS, lungs clear, BS WNL, NO IV. Pt. denies N/V/SOB/Pain. Pt. 2 assist/EZ-stand to commode. Alie-cares performed in morning using (vaushe and mepilex). Pt. had 1 BM, LG formed in commode. Pt. able to perform her own morning cares in wheelchair (teeth, hair, face-wash), then transfer to recliner remainder of shift. Pt. continues to have vaginal bleeding. Pt. completed exercises in recliner and using EZ stand, tolerated activity well.
[2022-04-19] MEDS: MELATONIN 3 MG TABLET PO (21:37)
[2022-04-19 22:54] VITALS: RESP 17; O2SAT 97
[2022-04-20] MEDS: ACETAMINOPHEN 325 MG TABLET 975 MG PO (01:06)
--- NOTE | 2022-04-20 05:25 | PC.NURSE ---
Addendum entered by Hortencia Rivera RN 04/20/22 06:40: Pt does Not want to be woken up for weights at 600. requested to get weighed when she gets up for breakfast. Original Note: [id number] Pt up in recliner at beginning of shift, pt evening cares completed independently by pt, nurse helped set up supplies. Back to bed with Ez stand, tolerated fairly well. Pt slept during night with Bipap in place.
[2022-04-20 06:34] LABS: Chloride* 110 mmol/L (96-114); Potassium* 4.4 mmol/L (3.6-5.1); Sodium* 138 mmol/L (135-149)
[2022-04-20 06:36] LABS: Eosinophils Percent Auto 4.5 % (0.0-7.0); Hematocrit 33.4 % (33.0-51.0); Hemoglobin* 10.4 gm/dL (12.0-16.0); Lymphocytes Percent Auto 32.7 % (20-44); Mean Corpuscular HGB Conc 31 gm/dL (32-36); Mean Corpuscular Hemoglobin 27 pg (26-34); Mean Corpuscular Volume 86 fL (80-100); Monocytes Percent Auto 11.1 % (0.0-11.0); Neutrophils Percent Auto 51.7 % (42.0-72.0); Platelet Count* 187 K/uL (140-440); Red Blood Count 3.88 m/uL (4.00-5.20); White Blood Count* 4.43 K/uL (4.50-11.00)
[2022-04-20 06:37] LABS: Carbon Dioxide* 26 mmol/L (20-32); Creatinine* 0.8 mg/dL (0.5-1.5); Est. Creatinine Clearance* 43.91; Estimated Glomerular Filt Rate 78 ml/min
[2022-04-20 06:38] LABS: Blood Urea Nitrogen* 13 mg/dL (7-30); Calcium* 8.9 mg/dL (8.4-10.6); Glucose* 96 mg/dL (60-115)
[2022-04-20 06:44] LABS: Slide Review Reflex No
[2022-04-20 07:00] VITALS: BP 150/85; PULSE 90; RESP 18; TEMP 36.7; O2SAT 97
[2022-04-20 09:43] VITALS: BMI 52.2
[2022-04-20] MEDS: NYSTATIN POWDER 1 APPLIC TOPICAL (09:46)
[2022-04-20] MEDS: CHOLESTYRAMINE POWDER 4 GM PO ×2 (09:46→17:41)
[2022-04-20] MEDS: FERROUS SULFATE 325 MG TABLET PO (09:48)
[2022-04-20] MEDS: FUROSEMIDE 40 MG TABLET PO (09:48)
[2022-04-20] MEDS: METOPROLOL TARTRATE 100 MG TABLET PO ×2 (09:48→20:30)
[2022-04-20] MEDS: SERTRALINE 50 MG TABLET PO (09:48)
[2022-04-20] MEDS: POTASSIUM CHLORIDE 10 MEQ CAPSULE ER 20 MEQ PO ×2 (09:49→17:41)
[2022-04-20] MEDS: LACTOBACILLUS ACIDOPHILUS 1 TABLET 1 TAB PO ×3 (09:49→17:41)
[2022-04-20] MEDS: APIXABAN 5 MG TABLET PO ×2 (09:49→20:30)
[2022-04-20 09:50] VITALS: PULSE 92
[2022-04-20] MEDS: LOPERAMIDE HCL 2 MG CAPSULE PO (09:50)
[2022-04-20] MEDS: MEDROXYPROGESTERONE 5 MG TABLET 20 MG PO ×2 (09:50→20:31)
[2022-04-20] MEDS: DIGOXIN 250 MCG TABLET PO (09:50)
[2022-04-20] MEDS: SPIRONOLACTONE 25 MG TABLET PO (09:51)
--- NOTE | 2022-04-20 12:24 | PM.IMPN1 ---
Progress Note: A&P Assessment and plan (1) Acute respiratory failure with hypercapnia: Problem details: On BiPAP at night Status: Acute (2) Atrial flutter with rapid ventricular response: Problem details: - Rate controlled on digoxin and metoprolol, no acute cardiovascular issues currently - Eliquis for prophylaxis - TTE obtained 03/03 Final Impressions: 1. Technically very limited exam. 2. Normal LV size, normal global systolic function with an estimated EF of 60 - 65%. 3. Enlarged RV w/ reduced function, incompletely visualized. 4. Moderately enlarged left atrium. 5. No hemodynamically significant valve disease detected. Status: Acute (3) Vaginal bleeding: Problem details: - on apixaban for Aflutter; at this time, very high risk for thromboembolic event given comorbidities and immobility - still in rate controlled Atrial flutter by ECG on 04/08 - EUA, EMB and Pap smear 03/12/22 (negative HPV, atypical glandular proliferation). Appreciate Gynecology support; please see final consult note from 03/19/22 - 03/19: Dr. Wagner recommended starting Provera 10mg QD for endometrial protection, until she can safely pursue other surgical options (D&C/hysterectomy, etc) - Progesterone initiated 03/21/22. - 2: vaginal bleeding as become more brisk - like a medium/moderate menses without clots or cramping - 04/05: vaginal bleeding increased, on 04/06 Dr. Edgar Galloway recommended increasing provera to 20mg BID. Bleeding persists but improved. - 04/09: reviewed with Dr. Valdez at [facility] to discuss possibility of transfer vs outpatient f/u; Dr. Valdez notes that we could consider Historical Interpreter-Onc referral given pap results - [facility] plan: hysterectomy in the months ahead; short-term, if needed: D&C vs ablation vs embolization (would require a day trip to IR), plan pending clinical course Status: Acute (4) Hematuria: Problem details: Possibly secondary to over distended bladder upon presentation combined with anticoagulation with Eliquis for atrial flutter. Renal ultrasound 03/04/2022 was unremarkable. Hemoglobin stable. UA repeated shows elevated urine wbc's, UC - no bacteria, +some yeast. Will need outpatient urology consultation. Status: Acute (5) Stage III pressure ulcer of buttock: Problem details: stage III right buttock pressure ulcer. She also has a stage II left buttock pressure ulcer. Alternating pressure mattress in place. Status: Acute (6) Fall: Problem details: - secondary to weakness and deconditioning - on the ground for 3 days prior to admission. Continue to work on strengthening Status: Acute (7) Incontinence associated dermatitis: Problem details: - continue williamson and prn loperamide for loose stools (c. diff negative), also working on diet changes to limit diarrhea - continue wound care as per surgery/Wound consult recommendations Status: Acute (8) Lymphedema associated with obesity: Problem details: - Continue to work on compression and lymphedema pumps - nutrition has been on top of calorie counts, and limited healthy menu. weights vary but slowly decreasing net total weight. - DME request to our [employer]rd democr[employer] vendor for lymphedema pumps (IN USE!), as well as a walking sling (ORDERED) - continue trial of Lasix and spironolactone to help alleviate some of her edema, POTASSIUM AND CREATINE ARE STABLE. ON K REPLACEMENT. Status: Acute (9) Obesity: Problem details: - Continue to work on diet, high-protein and calorie restricted Weight now down to 304 lb on April 19 2022. Will allow 1 ice cream treat per week. Patient understands that ongoing success with weight loss will not work with return to previous dietary habits Status: Acute (10) Weakness generalized: Problem details: - patient continues to make progress, although limited. Requiring 1 person assist to the EZ stand; using WC. Requires TCU at this juncture but ultimate goal is to return to independent living (suspect a wheelchair accommodated apartment in assisted living will be needed) - + fall risk - requires bariatric equipment - we are still seeking TCU placement - PT and OT are no longer rounding - she is working daily on reconditioning exercises provided to her by the physical therapy and occupational therapy staff - strict daily weights. Status: Acute (11) Adjustment disorder: Problem details: - started zoloft 25mg on 03/13, increased to 50mg 03/24 Status: Acute (12) Diarrhea: Problem details: - This has been resolved for several weeks - was not associated with abdominal pain or cramping - negative C diff, normal TSH - possibly iatrogenic (however, present prior to initiating Zoloft); not currently on antibiotics - has made diet changes, scheduled cholestyramine and loperamide with hold parameters - 04/05: improved, patient believes improvement 04/02 discontinuing nutritional supplements, declines any further supplements, working on adequate dietary protein - 04/07: Nutrition spoke with patient about protein snacks, etc. instead of nutritional supplements Status: Acute (13) Protein-calorie malnutrition, mild: Problem details: Albumin consistently low at 2.6-2.8. Total cholesterol 103. Her weight was as high as 177 kg while in hospital (03/23/2022). On admission her weight was measured at 154 kg (03/02/2022). On 04/17/2022 her weight is 141 kg. 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 Much of the weight loss is readily attributable to diuresis efforts, but some of it is indeed attributable to loss of lean body mass. Status: Acute (14) Sarcopenia: Problem details: - Consistent with her malnourished state - Striving to improve muscle strength and endurance, and slowly improving Status: Acute (15) Euthyroid sick syndrome: Problem details: TSH 9.1 on 03/25/2022, with normal T4 and T3. Recommend re-check TSH in June 2022. Status: Acute (16) Iron deficiency anemia secondary to blood loss (chronic): Problem details: Monitor hemoglobin periodically. Started iron supplementation 325 mg of ferrous sulfate once daily on 04/15/2022 - tolerating. Status: Acute (17) Living accommodation issues: Problem details: Our social science research assistant staff have been arduous line working with the patient and numerous living setting centers across the state since she was admitted - over 100 so far. They will continue to work toward establishing a safe discharge disposition plan. Status: Acute Time Spent With Patient Total time spent: Continue in hospital pending safe discharge plan Subjective Date Seen: 04/20/22 Interval history: 72-year-old female seen in followup multiple medical problems. She reports doing well today with no concerns. She still having a small amount of vaginal bleeding. Unchanged from yesterday. She is down to 304 lb. She is quite happy with that. She has continued to do exercises in her chair. she is requesting an ice cream treat once a week. Exam Narrative: Exam Narrative: She is alert and in no distress. Mood and affect are bright. Breathing is unlabored. Abdomen is without tenderness. Extremities without significant edema. She moves all 4 extremities well. Const: Vital Signs, click to edit/add: Vital Signs - 24 hr 04/19/22 15:00 04/19/22 15:00 04/19/22 19:00 Temperature 98.4 F Pulse Rate Pulse Rate [Pulse Oximeter] 85 91 Respiratory Rate 18 18 18 Blood Pressure [Le ft Arm] Blood Pressure [Ri ght Arm] 136/96 H Pulse Oximetry 97 95 Oxygen Delivery Me thod Room Air Room Air Oxygen Flow Rate 8 Fraction of Inspir ed Oxygen 21 04/19/22 22:54 04/20/22 07:00 04/20/22 07:00 Temperature 98.1 F Pulse Rate Pulse Rate [Pulse Oximeter] 90 Respiratory Rate 17 18 18 Blood Pressure [Le ft Arm] 150/85 H Blood Pressure [Ri ght Arm] Pulse Oximetry 97 97 97 Oxygen Delivery Me thod BiPAP Room Air Room Air Oxygen Flow Rate 8 Fraction of Inspir ed Oxygen 21 04/20/22 09:07 04/20/22 09:50 04/20/22 07:00 Temperature Pulse Rate 92 Pulse Rate [Pulse Oximeter] 90 Respiratory Rate 18 Blood Pressure [Le ft Arm] Blood Pressure [Ri ght Arm] Pulse Oximetry Oxygen Delivery Me thod Oxygen Flow Rate Fraction of Inspir ed Oxygen 21 Documenting provider has reviewed patient's vital signs: yes Labs Labs: Laboratory Results - last 24 hr 04/20/22 04/20/22 06:10 06:10 WBC 4.43 L RBC 3.88 L Hgb 10.4 L Hct 33.4 MCV 86 MCH 27 MCHC 31 L Plt Count 187 Neut % (Auto) 51.7 Lymph % (Auto) 32.7 [place] % (Auto) 11.1 H Eos % (Auto) 4.5 Baso % (Auto) 0.0 Neut # (Auto) 2.30 Lymph # (Auto) 1.40 [place] # (Auto) 0.50 Eos # (Auto) 0.20 Baso # (Auto) 0.00 Sodium 138 Potassium 4.4 Chloride 110 Carbon Dioxide 26 BUN 13 Creatinine 0.8 Estimated Creat Clear 43.91 Estimated GFR 78 Glucose 96 Calcium 8.9
[2022-04-20 15:00] VITALS: PULSE 90; RESP 16
[2022-04-20 17:05] VITALS: RESP 16; O2SAT 95
--- NOTE | 2022-04-20 18:42 | PC.NURSE ---
End of shift-- Very pleasant and cooperative, alert and oriented patient. VSS and pt is afebrile. SPO2 maintained >90% on RA. She denied any pain today. LS CTA and pt was encouraged to take deep breaths and use her IS. HR irregular as per her baseline. She denied nausea and ate 100% of 2 meals today. Lg BM x1. She was up to the chair and commode with EZ stand and tolerated it well. Report to oncoming shift.
[2022-04-20 19:00] VITALS: BP 136/73; PULSE 69; RESP 16; TEMP 37; O2SAT 91
[2022-04-20] MEDS: MELATONIN 3 MG TABLET PO (20:32)
[2022-04-20 23:00] VITALS: RESP 16; O2SAT 95
[2022-04-21 07:00] VITALS: BP 150/74; PULSE 69; RESP 16; TEMP 36.9; O2SAT 98; O2SAT 99
--- NOTE | 2022-04-21 07:04 | PC.NURSE ---
Shift note: Pt is doing well with A2 and EZ stand. Requested for melatonin for sleep. Pt Ask BIPAP to be removed at 0200. BIPAP removed O2>90% for the remaining of the shift.
[2022-04-21] MEDS: CHOLESTYRAMINE POWDER 4 GM PO ×2 (09:45→18:08)
[2022-04-21 09:46] VITALS: PULSE 69
[2022-04-21] MEDS: DIGOXIN 250 MCG TABLET PO (09:46)
[2022-04-21] MEDS: LOPERAMIDE HCL 2 MG CAPSULE PO (09:47)
[2022-04-21] MEDS: APIXABAN 5 MG TABLET PO ×2 (09:47→20:52)
[2022-04-21] MEDS: MEDROXYPROGESTERONE 5 MG TABLET 20 MG PO ×2 (09:47→20:52)
[2022-04-21] MEDS: METOPROLOL TARTRATE 100 MG TABLET PO ×2 (09:47→20:52)
[2022-04-21] MEDS: NYSTATIN POWDER 1 APPLIC TOPICAL (09:48)
[2022-04-21] MEDS: SERTRALINE 50 MG TABLET PO (09:48)
[2022-04-21] MEDS: LACTOBACILLUS ACIDOPHILUS 1 TABLET 1 TAB PO ×3 (09:49→18:09)
[2022-04-21] MEDS: POTASSIUM CHLORIDE 10 MEQ CAPSULE ER 20 MEQ PO ×2 (09:49→18:08)
[2022-04-21] MEDS: FUROSEMIDE 40 MG TABLET PO (09:49)
[2022-04-21] MEDS: FERROUS SULFATE 325 MG TABLET PO (09:49)
[2022-04-21] MEDS: SPIRONOLACTONE 25 MG TABLET PO (09:49)
--- NOTE | 2022-04-21 13:20 | PM.IMPN1 ---
Progress Note: A&P Assessment and plan (1) Acute respiratory failure with hypercapnia: Problem details: On BiPAP at night. consider trial of lower pressure to improve tolerance. Status: Acute (2) Atrial flutter with rapid ventricular response: Problem details: - Rate controlled on digoxin and metoprolol, no acute cardiovascular issues currently - Eliquis for prophylaxis - TTE obtained 03/03 Final Impressions: 1. Technically very limited exam. 2. Normal LV size, normal global systolic function with an estimated EF of 60 - 65%. 3. Enlarged RV w/ reduced function, incompletely visualized. 4. Moderately enlarged left atrium. 5. No hemodynamically significant valve disease detected. Status: Acute (3) Vaginal bleeding: Problem details: - on apixaban for Aflutter; at this time, very high risk for thromboembolic event given comorbidities and immobility - still in rate controlled Atrial flutter by ECG on 04/08 - EUA, EMB and Pap smear 03/12/22 (negative HPV, atypical glandular proliferation). Appreciate Gynecology support; please see final consult note from 03/19/22 - 03/19: Dr. Wagner recommended starting Provera 10mg QD for endometrial protection, until she can safely pursue other surgical options (D&C/hysterectomy, etc) - Progesterone initiated 03/21/22. - 2/2: vaginal bleeding as become more brisk - like a medium/moderate menses without clots or cramping - 04/05: vaginal bleeding increased, on 04/06 Dr. Edgar Galloway recommended increasing provera to 20mg BID. Bleeding persists but improved. - 04/09: reviewed with Dr. Valdez at [facility] to discuss possibility of transfer vs outpatient f/u; Dr. Valdez notes that we could consider Mail[facility] Messenger-Onc referral given pap results - senior care plan: hysterectomy in the months ahead; short-term, if needed: D&C vs ablation vs embolization (would require a day trip to IR), plan pending clinical course Status: Acute (4) Hematuria: Problem details: Possibly secondary to over distended bladder upon presentation combined with anticoagulation with Eliquis for atrial flutter. Renal ultrasound 03/04/2022 was unremarkable. Hemoglobin stable. UA repeated shows elevated urine wbc's, UC - no bacteria, +some yeast. Will need outpatient urology consultation. Status: Acute (5) Stage III pressure ulcer of buttock: Problem details: stage III right buttock pressure ulcer. She also has a stage II left buttock pressure ulcer. Alternating pressure mattress in place. Status: Acute (6) Fall: Problem details: - secondary to weakness and deconditioning - on the ground for 3 days prior to admission. Continue to work on strengthening Status: Acute (7) Incontinence associated dermatitis: Problem details: - continue williamson and prn loperamide for loose stools (c. diff negative), also working on diet changes to limit diarrhea - continue wound care as per surgery/Wound consult recommendations Status: Acute (8) Lymphedema associated with obesity: Problem details: - Continue to work on compression and lymphedema pumps - nutrition has been on top of calorie counts, and limited healthy menu. weights vary but slowly decreasing net total weight. - DME request to our [employer] vendor for lymphedema pumps (IN USE!), as well as a walking sling (ORDERED) - continue trial of Lasix and spironolactone to help alleviate some of her edema, POTASSIUM AND CREATINE ARE STABLE. ON K REPLACEMENT. Status: Acute (9) Obesity: Problem details: - Continue to work on diet, high-protein and calorie restricted Weight now down to 304 lb on April 19 2022. Will allow 1 ice cream treat per week. Patient understands that ongoing success with weight loss will not work with return to previous dietary habits Status: Acute (10) Weakness generalized: Problem details: - patient continues to make progress, although limited. Requiring 1 person assist to the EZ stand; using WC. Requires TCU at this juncture but ultimate goal is to return to independent living (suspect a wheelchair accommodated apartment in assisted living will be needed) - + fall risk - requires bariatric equipment - we are still seeking TCU placement - PT and OT are no longer rounding - she is working daily on reconditioning exercises provided to her by the physical therapy and occupational therapy staff - strict daily weights. Status: Acute (11) Adjustment disorder: Problem details: - started zoloft 25mg on 03/13, increased to 50mg 03/24 Status: Acute (12) Diarrhea: Problem details: - This has been resolved for several weeks - was not associated with abdominal pain or cramping - negative C diff, normal TSH - possibly iatrogenic (however, present prior to initiating Zoloft); not currently on antibiotics - has made diet changes, scheduled cholestyramine and loperamide with hold parameters - 04/05: improved, patient believes improvement 04/02 discontinuing nutritional supplements, declines any further supplements, working on adequate dietary protein - 04/07: Nutrition spoke with patient about protein snacks, etc. instead of nutritional supplements Status: Acute (13) Protein-calorie malnutrition, mild: Problem details: Albumin consistently low at 2.6-2.8. Total cholesterol 103. Her weight was as high as 177 kg while in hospital (03/23/2022). On admission her weight was measured at 154 kg (03/02/2022). On 04/17/2022 her weight is 141 kg. 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 Much of the weight loss is readily attributable to diuresis efforts, but some of it is indeed attributable to loss of lean body mass. Status: Acute (14) Sarcopenia: Problem details: - Consistent with her malnourished state - Striving to improve muscle strength and endurance, and slowly improving Status: Acute (15) Euthyroid sick syndrome: Problem details: TSH 9.1 on 03/25/2022, with normal T4 and T3. Recommend re-check TSH in June 2022. Status: Acute (16) Iron deficiency anemia secondary to blood loss (chronic): Problem details: Monitor hemoglobin periodically. Started iron supplementation 325 mg of ferrous sulfate once daily on 04/15/2022 - tolerating. Status: Acute (17) Living accommodation issues: Problem details: Our social media editor staff have been arduous line working with the patient and numerous living setting centers across the state since she was admitted - over 100 so far. They will continue to work toward establishing a safe discharge disposition plan. Status: Acute Plan Continue in hospital pending safe discharge plan. Continue to adjust treatments to optimize care. In this case adjust BiPAP and mask. Time Spent With Patient Total time spent: Total time spent today is 20 minutes, 15 minutes in coordination of care and discussing management of BiPAP Subjective Date Seen: 04/21/22 Interval history: 72-year-old female seen in followup multiple medical problems. She reports doing well today with no concerns. She still having a small amount of vaginal bleeding. Unchanged from yesterday. She had trouble sleeping last night. Her BiPAP mask was changed because the previous mask did not fit well and was having problems with leaking. The current mask is rubbing on her face and uncomfortable ways that she did not tolerate well. She has continued on current pressure settings of 18 and 10 for BiPAP. Exam Narrative: Exam Narrative: She is alert and appears in no distress. Mood and affect are bright. Breathing is unlabored. Lower extremities without edema. Const: Vital Signs, click to edit/add: Vital Signs - 24 hr 04/20/22 17:05 04/20/22 15:00 04/20/22 19:00 Temperature 98.6 F Pulse Rate Pulse Rate [Pulse Oximeter] 90 69 Respiratory Rate 16 16 16 Blood Pressure [Ri ght Arm] 136/73 Pulse Oximetry 95 91 Oxygen Delivery Me thod Room Air Room Air Oxygen Flow Rate Fraction of Inspir ed Oxygen 04/20/22 23:00 04/21/22 08:59 04/21/22 07:00 Temperature Pulse Rate Pulse Rate [Pulse Oximeter] Respiratory Rate 16 16 Blood Pressure [Ri ght Arm] Pulse Oximetry 95 98 Oxygen Delivery Me thod Room Air Room Air Oxygen Flow Rate 8 Fraction of Inspir ed Oxygen 21 21 04/21/22 07:00 04/21/22 09:46 04/21/22 07:00 Temperature 98.5 F Pulse Rate 69 Pulse Rate [Pulse Oximeter] 69 69 Respiratory Rate 16 16 Blood Pressure [Ri ght Arm] 150/74 H Pulse Oximetry 99 Oxygen Delivery Me thod Room Air Oxygen Flow Rate Fraction of Inspir ed Oxygen Documenting provider has reviewed patient's vital signs: yes
[2022-04-21 15:00] VITALS: RESP 16; O2SAT 98
--- NOTE | 2022-04-21 15:38 | PC.NURSE ---
End of shift-- Very pleasant and cooperative, alert and oriented patient. VSS and pt is afebrile. SPO2 maintained >90% on RA. She denied any pain. LS CTA. HR irregular as per her baseline. She denied nausea, declined breakfast and ate 100% of lunch without difficulty. BM today x2. She was up to the chair and commode with EZ stand and tolerated it well. Did most of her exercises independently today and was assisted to complete 5 minutes standing with EZ stand this afternoon. Carin director of LT was at bedside to assess patient today and all of her questions were answered. Report to SHARON Kirby.
--- NOTE | 2022-04-21 16:54 | RESP.RT ---
Pt has said her face and back of head hurt with her BIPAP. Assessed unit, mask, headgear, and pt. Following changes made. IPAP [id number], [id number], Rise time changed from 2 to 4. Re did headgear. Pt wore for 25 minutes. Per pt this felt much better. Very happy with change in the rise time. RR 18 Vt 700cc. Keep pt on these settings for the night.
[2022-04-21 19:00] VITALS: BP 98/70; PULSE 78; RESP 16; TEMP 36.9; O2SAT 95
[2022-04-21] MEDS: MELATONIN 3 MG TABLET PO (20:53)
[2022-04-21 23:00] VITALS: RESP 16; O2SAT 95
[2022-04-22] VITALS (7 sets, daily range): BP systolic 135–148; BP diastolic 68–81; PULSE 67–91; RESP 18–20; TEMP 36.8–36.9; O2SAT 93–100
--- NOTE | 2022-04-22 05:29 | PC.NURSE ---
Shift note: pt is doing well. Denied any pain, cough and SOB. CPAP on throughout the night. Melatonin 6mg given at 2100 upon request.
[2022-04-22] MEDS: METOPROLOL TARTRATE 100 MG TABLET PO ×2 (09:12→20:33)
[2022-04-22] MEDS: CHOLESTYRAMINE POWDER 4 GM PO ×2 (09:12→17:58)
[2022-04-22] MEDS: LACTOBACILLUS ACIDOPHILUS 1 TABLET 1 TAB PO ×3 (09:13→17:58)
[2022-04-22] MEDS: FUROSEMIDE 40 MG TABLET PO (09:13)
[2022-04-22] MEDS: MEDROXYPROGESTERONE 5 MG TABLET 20 MG PO ×2 (09:13→20:33)
[2022-04-22] MEDS: POTASSIUM CHLORIDE 10 MEQ CAPSULE ER 20 MEQ PO ×2 (09:14→17:58)
[2022-04-22] MEDS: FERROUS SULFATE 325 MG TABLET PO (09:14)
[2022-04-22] MEDS: APIXABAN 5 MG TABLET PO ×2 (09:15→20:34)
[2022-04-22] MEDS: DIGOXIN 250 MCG TABLET PO (09:15)
[2022-04-22] MEDS: NYSTATIN POWDER 1 APPLIC TOPICAL (09:16)
[2022-04-22] MEDS: SPIRONOLACTONE 25 MG TABLET PO (09:16)
[2022-04-22] MEDS: ACETAMINOPHEN 325 MG TABLET 975 MG PO (09:17)
[2022-04-22] MEDS: SERTRALINE 50 MG TABLET PO (09:19)
--- NOTE | 2022-04-22 14:00 | PC.NURSE ---
Pt is following her daily regimen posted on the computer in her room. She remains calm and cooperative with cares. Ghosh catheter discontinued at 11:15 am, pt concerned about having an incontinent episode, large diaper with insert provided. Reassurance given that staff will help her with toileting in a timely fashion. No dysphagia with meds. Weight on EZ stand 307.5 lbs this morning. Pt wearing thigh high compression stockings. Skin on her bilateral lower extremities is dry/ flaking. Pt does not eat bkfst. Performs ADLS at sink in large wheelchair, transferred to recliner via EZ stand. Calorie count completed for lunch tray. Visit from [facility] nurse. Continue plan of care. Report will be given to oncoming shift.
--- NOTE | 2022-04-22 14:40 | RESP.RT ---
Talked with [facility] that plans to admit Emily on Wednesday. They have arranged per our request to have DME company bring in BIPAP machine and some masks. Per the DON of the facility, DME will bring in unit and they will do a mask fitting with pt.
--- NOTE | 2022-04-22 14:47 | P.IMPN_ITS ---
Progress Note: A&P Assessment and plan (1) Acute respiratory failure with hypercapnia: Problem details: Acute respiratory failure resolved. Now on BiPAP at night. tolerating this much better with lower pressures Status: Acute (2) Atrial flutter with rapid ventricular response: Problem details: - Rate controlled on digoxin and metoprolol, no acute cardiovascular issues currently - Eliquis for prophylaxis - TTE obtained 03/03 Final Impressions: 1. Technically very limited exam. 2. Normal LV size, normal global systolic function with an estimated EF of 60 - 65%. 3. Enlarged RV w/ reduced function, incompletely visualized. 4. Moderately enlarged left atrium. 5. No hemodynamically significant valve disease detected. Status: Acute (3) Vaginal bleeding: Problem details: - on apixaban for Aflutter; at this time, very high risk for thromboembolic event given comorbidities and immobility - still in rate controlled Atrial flutter by ECG on 04/08 - EUA, EMB and Pap smear 03/12/22 (negative HPV, atypical glandular proliferation). Appreciate Gynecology support; please see final consult note from 03/19/22 - 03/19: Dr. Wagner recommended starting Provera 10mg QD for endometrial protection, until she can safely pursue other surgical options (D&C/hysterectomy, etc) - Progesterone initiated 03/21/22. - 2/2: vaginal bleeding as become more brisk - like a medium/moderate menses without clots or cramping - 04/05: vaginal bleeding increased, on 04/06 Dr. Edgar Galloway recommended increasing provera to 20mg BID. Bleeding persists but improved. - 04/09: reviewed with Dr. Valdez at [facility] to discuss possibility of transfer vs outpatient f/u; Dr. Valdez notes that we could consider [facility] referral given pap results - long-term plan: hysterectomy in the months ahead; short-term, if needed: D&C vs ablation vs embolization (would require a day trip to IR), plan pending clinical course Status: Acute (4) Hematuria: Problem details: Possibly secondary to over distended bladder upon presentation combined with anticoagulation with Eliquis for atrial flutter. Renal ultrasound 03/04/2022 was unremarkable. Hemoglobin stable. UA repeated shows elevated urine wbc's, UC - no bacteria, +some yeast. Will need outpatient urology consultation. Status: Acute (5) Stage III pressure ulcer of buttock: Problem details: stage III right buttock pressure ulcer. She also has a stage II left buttock pressure ulcer. Alternating pressure mattress in place. secondhand report from surgery is that these are healing Status: Acute (6) Incontinence associated dermatitis: Problem details: monitor skin now that Ghosh catheter is out Status: Acute (7) Lymphedema associated with obesity: Problem details: - Continue to work on compression and lymphedema pumps - nutrition has been on top of calorie counts, and limited healthy menu. weights vary but slowly decreasing net total weight. - DME request to our 3rd constitution party vendor for lymphedema pumps (IN USE!), as well as a walking sling (ORDERED) - continue trial of Lasix and spironolactone to help alleviate some of her edema, POTASSIUM AND CREATINE ARE STABLE. ON K REPLACEMENT. Status: Acute (8) Obesity: Problem details: - Continue to work on diet, high-protein and calorie restricted Weight now down to 304 lb on April 19 2022. Will allow 1 ice cream treat per week. Patient understands that ongoing success with weight loss will not work with return to previous dietary habits Status: Acute (9) Weakness generalized: Problem details: - patient continues to make progress, although limited. Requiring 1 person assist to the EZ stand; using WC. Requires TCU at this juncture but ultimate goal is to return to independent living (suspect a wheelchair accommodated apart ment in assisted living will be needed) - + fall risk - requires bariatric equipment - we are still seeking TCU placement - PT and OT are no longer rounding - she is working daily on reconditioning exercises provided to her by the physical therapy and occupational therapy staff - strict daily weights. Status: Acute (10) Adjustment disorder: Problem details: - started zoloft 25mg on 03/13, increased to 50mg 03/24 Status: Acute (11) Diarrhea: Problem details: - This has been resolved for several weeks - was not associated with abdominal pain or cramping - negative C diff, normal TSH - possibly iatrogenic (however, present prior to initiating Zoloft); not currently on antibiotics - has made diet changes, scheduled cholestyramine and loperamide with hold parameters - 04/05: improved, patient believes improvement 2/2 discontinuing nutritional supplements, declines any further supplements, working on adequate dietary protein - 04/07: Nutrition spoke with patient about protein snacks, etc. instead of nutritional supplements Status: Acute (12) Protein-calorie malnutrition, mild: Problem details: Albumin consistently low at 2.6-2.8. Total cholesterol 103. Her weight was as high as 177 kg while in hospital (03/23/2022). On admission her weight was measured at 154 kg (03/02/2022). On 04/17/2022 her weight is 141 kg. 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 Much of the weight loss is readily attributable to diuresis efforts, but some of it is indeed attributable to loss of lean body mass. Status: Acute (13) Euthyroid sick syndrome: Problem details: TSH 9.1 on 03/25/2022, with normal T4 and T3. Recommend re-check TSH in June 2022. Status: Acute (14) Iron deficiency anemia secondary to blood loss (chronic): Problem details: Monitor hemoglobin periodically. Started iron supplementation 325 mg of ferrous sulfate once daily on 04/15/2022 - tolerating. Status: Acute (15) Living accommodation issues: Problem details: Our social worker health services staff have been arduous line working with the patient and numerous living setting centers across the state since she was admitted - over 100 so far. They will continue to work toward establishing a safe discharge disposition plan. Status: Acute Plan continue in hospital for management of above medical problems and fine tuning treatments. [facility] Time Spent With Patient Total time spent: Total time spent today is 15 minutes essentially all of that in discussing with patient other providers plan of care and disposition Subjective Date Seen: 04/22/22 Interval history: 72-year-old female seen in followup of multiple medical problems. She reports generally doing well today. She tolerated her BiPAP much better last night. Adjustments to the mask as well as adjustments to the pressure setting worked well for her and she slept about 8 hours uninterrupted. Ongoing conversation with long-term care center about possible transfer for rehab. She is concerned about not having a Ghosh catheter in. Discussed the risks and benefits again. Exam Narrative: Exam Narrative: She is alert and appears in no distress. Speech is normal. Mood and affect are bright. Breathing is unlabored. Const: Vital Signs, click to edit/add: Vital Signs - 24 hr 04/21/22 15:00 04/21/22 15:00 04/21/22 19:00 Temperature 98.4 F Pulse Rate Pulse Rate [Left A pical] Pulse Rate [Left C arotid] Pulse Rate [Pulse Oximeter] 78 Respiratory Rate 16 16 Blood Pressure [Ri ght Arm] 98/70 Pulse Oximetry 98 95 Oxygen Delivery Me thod Room Air Room Air Oxygen Flow Rate Fraction of Inspir ed Oxygen 04/21/22 23:00 04/22/22 07:00 04/22/22 07:00 Temperature 98.4 F Pulse Rate Pulse Rate [Left A pical] Pulse Rate [Left C arotid] 91 Pulse Rate [Pulse Oximeter] 91 Respiratory Rate 16 20 20 Blood Pressure [Ri ght Arm] 135/71 Pulse Oximetry 95 99 99 Oxygen Delivery Me thod Room Air Room Air Room Air Oxygen Flow Rate 8 Fraction of Inspir ed Oxygen 21 04/22/22 09:15 04/22/22 11:00 04/22/22 14:40 Temperature 98.4 F Pulse Rate 90 Pulse Rate [Left A pical] 67 Pulse Rate [Left C arotid] Pulse Rate [Pulse Oximeter] 67 Respiratory Rate 20 Blood Pressure [Ri ght Arm] 137/81 Pulse Oximetry 100 Oxygen Delivery Me thod Room Air Oxygen Flow Rate Fraction of Inspir ed Oxygen 21 Documenting provider has reviewed patient's vital signs: yes
--- NOTE | 2022-04-22 15:32 | PC.SOCIAL ---
Received a voicemail from Kinga at [facility] requesting that pt's referral be re-faxed to [phone] so they can assess pt for possible admission. Faxed referral to [facility]. Social work will follow up as necessary.
--- NOTE | 2022-04-22 18:40 | PC.NURSE ---
End of shift [id number]. --Pt has been very pleasant. , alert and oriented x4.? She denied any pain.?she is eating, drinking and voiding. Davina was d/c today. he voided after Davina was d/c, She was up to the chair and commode with EZ stand and tolerated it well. leg wraps are on. and where changed
[2022-04-22] MEDS: MELATONIN 3 MG TABLET PO (20:34)
--- NOTE | 2022-04-23 06:29 | PC.NURSE ---
Shift note: Pt is doing well with A2 and EZ stand for transfer. Denied any pain or SOB. BIPAP set at 2130 but pt requested for removal at 0030, said I am tied. Pt had adequate sleep. Pt has voided after urinary catheter removal.
[2022-04-23 08:00] VITALS: BP 134/72; PULSE 87; RESP 18; TEMP 37.3; O2SAT 97
[2022-04-23 08:05] VITALS: PULSE 87; RESP 18; O2SAT 97
[2022-04-23] MEDS: NYSTATIN POWDER 1 APPLIC TOPICAL ×2 (08:53→20:58)
[2022-04-23] MEDS: MEDROXYPROGESTERONE 5 MG TABLET 20 MG PO ×2 (09:50→20:58)
[2022-04-23] MEDS: METOPROLOL TARTRATE 100 MG TABLET PO ×2 (09:51→20:58)
[2022-04-23] MEDS: APIXABAN 5 MG TABLET PO ×2 (09:51→20:58)
[2022-04-23 09:52] VITALS: PULSE 76
[2022-04-23] MEDS: SERTRALINE 50 MG TABLET PO (09:52)
[2022-04-23] MEDS: DIGOXIN 250 MCG TABLET PO (09:52)
[2022-04-23] MEDS: CHOLESTYRAMINE POWDER 4 GM PO ×2 (09:53→18:20)
[2022-04-23] MEDS: FERROUS SULFATE 325 MG TABLET PO (09:57)
[2022-04-23] MEDS: LACTOBACILLUS ACIDOPHILUS 1 TABLET 1 TAB PO ×3 (09:57→18:20)
[2022-04-23] MEDS: FUROSEMIDE 40 MG TABLET PO (09:57)
[2022-04-23] MEDS: POTASSIUM CHLORIDE 10 MEQ CAPSULE ER 20 MEQ PO ×2 (09:57→18:20)
[2022-04-23] MEDS: SPIRONOLACTONE 25 MG TABLET PO (09:59)
--- NOTE | 2022-04-23 12:50 | P.IMPN_ITS ---
Progress Note: A&P Assessment and plan (1) Acute respiratory failure with hypercapnia: Problem details: Acute respiratory failure resolved. Now on BiPAP at night. tolerating this much better with lower pressures Status: Acute (2) Atrial flutter with rapid ventricular response: Problem details: - Rate controlled on digoxin and metoprolol, no acute cardiovascular issues currently - Eliquis for prophylaxis - TTE obtained 03/03 Final Impressions: 1. Technically very limited exam. 2. Normal LV size, normal global systolic function with an estimated EF of 60 - 65%. 3. Enlarged RV w/ reduced function, incompletely visualized. 4. Moderately enlarged left atrium. 5. No hemodynamically significant valve disease detected. Status: Acute (3) Vaginal bleeding: Problem details: - on apixaban for Aflutter; at this time, very high risk for thromboembolic event given comorbidities and immobility - still in rate controlled Atrial flutter by ECG on 04/08 - EUA, EMB and Pap smear 03/12/22 (negative HPV, atypical glandular proliferation). Appreciate Gynecology support; please see final consult note from 03/19/22 - 03/19: Dr. Wagnre recommended starting Provera 10mg QD for endometrial protection, until she can safely pursue other surgical options (D&C/hysterectomy, etc) - Progesterone initiated 03/21/22. - 2/2: vaginal bleeding as become more brisk - like a medium/moderate menses without clots or cramping - 04/05: vaginal bleeding increased, on 04/06 Dr. Edgar Galloway recommended increasing provera to 20mg BID. Bleeding persists but improved. - 04/09: reviewed with Dr. Valdez at [facility] to discuss possibility of transfer vs outpatient f/u; Dr. Valdez notes that we could consider [facility] referral given pap results - [facility] plan: hysterectomy in the months ahead; short-term, if needed: D&C vs ablation vs embolization (would require a day trip to IR), plan pending clinical course Status: Acute (4) Hematuria: Problem details: Possibly secondary to over distended bladder upon presentation combined with anticoagulation with Eliquis for atrial flutter. Renal ultrasound 03/04/2022 was unremarkable. Hemoglobin stable. UA repeated shows elevated urine wbc's, UC - no bacteria, +some yeast. Will need outpatient urology consultation. Status: Acute (5) Stage III pressure ulcer of buttock: Problem details: Per secondhand report her ulcers are healing well Status: Acute (6) Incontinence associated dermatitis: Problem details: monitor skin now that Ghosh catheter is out. Status: Acute (7) Lymphedema associated with obesity: Problem details: - Continue to work on compression . Probably will not have lymphedema pumps at the long-term care center Status: Acute (8) Obesity: Problem details: - Continue to work on diet, high-protein and calorie restricted Weight now down to 304 lb on April 19 2022. Will allow 1 ice cream treat per week. Patient understands that ongoing success with weight loss will not work with return to previous dietary habits Status: Acute (9) Weakness generalized: Problem details: - patient continues to make progress, although limited. Requiring 1 person assist to the EZ stand; using WC. Requires TCU at this juncture but ultimate goal is to return to independent living (suspect a wheelchair accommodated apartment in assisted living will be needed) - + fall risk - requires bariatric equipment - we are still seeking TCU placement - PT and OT are no longer rounding - she is working daily on reconditioning exercises provided to her by the physical therapy and occupational therapy staff - strict daily weights. Status: Acute (10) Adjustment disorder: Problem details: - started zoloft 25mg on 03/13, increased to 50mg 03/24 Status: Acute (11) Diarrhea: Problem details: - This has been resolved for several weeks - was not associated with abdominal pain or cramping - negative C diff, normal TSH - possibly iatrogenic (however, present prior to initiating Zoloft); not currently on antibiotics - has made diet changes, scheduled cholestyramine and loperamide with hold parameters - 04/05: improved, patient believes improvement 2/2 discontinuing nutritional supplements, declines any further supplements, working on adequate dietary protein - 04/07: Nutrition spoke with patient about protein snacks, etc. instead of nutritional supplements Status: Acute (12) Protein-calorie malnutrition, mild: Problem details: Albumin consistently low at 2.6-2.8. Total cholesterol 103. Her weight was as high as 177 kg while in hospital (03/23/2022). On admission her weight was measured at 154 kg (03/02/2022). On 04/17/2022 her weight is 141 kg. 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 Much of the weight loss is readily attributable to diuresis efforts, but some of it is indeed attributable to loss of lean body mass. Status: Acute (13) Euthyroid sick syndrome: Problem details: TSH 9.1 on 03/25/2022, with normal T4 and T3. Recommend re-check TSH in June 2022. Status: Acute (14) Iron deficiency anemia secondary to blood loss (chronic): Problem details: Monitor hemoglobin periodically. Started iron supplementation 325 mg of ferrous sulfate once daily on 04/15/2022 - tolerating. Status: Acute (15) Living accommodation issues: Problem details: Tentative plans to go to [facility], down stairs, next week, end of April or beginning of April. Status: Acute (16) Difficulty with BiPAP use: Problem details: Patient has had some issues with fit and comfort with BiPAP mask. This has been affected by the need initially for high pressures as well as a need for change in mask with her weight loss. Inspiratory pressure has decreased from 18-13 which she tolerates much better. She continues to need some assistance with adjusting the mask in the straps for comfort at night Status: Acute Plan Continue in hospital pending safe discharge plan. Continue to modify treatments to optimize care. Time Spent With Patient Total time spent: Total time spent today is 20 minutes, all that time discussing with patient and other providers plan of care and disposition. Subjective Date Seen: 04/23/22 Interval history: 72-year-old female seen in followup of multiple medical problems. She reports generally doing well today. She had a little trouble with the BiPAP mask being uncomfortable last night and took it off around midnight. The night before when very well however. Will need to continue to work with her on making this comfortable. Ongoing conversation with [facility] about possible transfer for rehab. She is much more accepting of life without a Ghosh catheter. She is also accepting that she will have some issues with incontinence. Discussed the risks and benefits again. Exam Narrative: Exam Narrative: She is alert and pleasant peers in no distress. Oriented to her circumstances. Asks appropriate questions about her our plans going forward. Const: Vital Signs, click to edit/add: Vital Signs - 24 hr 04/22/22 14:40 04/22/22 15:44 04/22/22 15:46 Temperature Pulse Rate Pulse Rate [Left A pical] 67 Pulse Rate [Pulse Oximeter] 67 Respiratory Rate 18 18 Blood Pressure [Le ft Arm] Blood Pressure [Ri ght Arm] Pulse Oximetry 97 Oxygen Delivery Me thod Room Air Oxygen Flow Rate Fraction of Inspir ed Oxygen 21 04/22/22 19:00 04/22/22 23:00 04/23/22 08:00 Temperature 98.3 F 99.1 F Pulse Rate Pulse Rate [Left A pical] 72 87 Pulse Rate [Pulse Oximeter] 87 Respiratory Rate 18 18 18 Blood Pressure [Le ft Arm] 134/72 Blood Pressure [Ri ght Arm] 148/68 H Pulse Oximetry 93 93 97 Oxygen Delivery Me thod Room Air Room Air Room Air Oxygen Flow Rate 8 Fraction of Inspir ed Oxygen 04/23/22 08:05 04/23/22 08:05 04/23/22 09:52 Temperature Pulse Rate 76 Pulse Rate [Left A pical] 87 Pulse Rate [Pulse Oximeter] Respiratory Rate 18 Blood Pressure [Le ft Arm] Blood Pressure [Ri ght Arm] Pulse Oximetry 97 Oxygen Delivery Me thod Room Air Oxygen Flow Rate Fraction of Inspir ed Oxygen Documenting provider has reviewed patient's vital signs: yes
--- NOTE | 2022-04-23 14:04 | PC.NURSE ---
Patient following her daily routine as outlined on the computer. Up to BR via EZ stand twice, large urinary incontinence overnight sepideh cares provided. Pt performed ADLS at [facility]. She has been up in recliner most of the day. No bkfst. No dysphagia with meds. Pt declined offer of tylenol po for left knee discomfort. Pt stood up for 3 minutes with EZ stand I feel like my legs are too weak to stand any longer per pt. Plan for patient to go to [facility] when able. Calorie count completed. Continue plan of care.
[2022-04-23 15:00] VITALS: PULSE 87; RESP 18; O2SAT 95
[2022-04-23 19:00] VITALS: BP 132/66; PULSE 85; RESP 16; TEMP 37; O2SAT 95
[2022-04-23] MEDS: MELATONIN 3 MG TABLET PO (22:20)
[2022-04-23 23:00] VITALS: RESP 18; O2SAT 95
--- NOTE | 2022-04-23 23:23 | PC.NURSE ---
End of Shift: Patient pleasant and cooperative. Afebrile. Denies pain. Up to chair and bathroom with 2 assist and EZ stand. Tolerating regular diet with no nausea. BiPAP on at bedtime per RT settings.
--- NOTE | 2022-04-24 06:24 | PC.NURSE ---
Shift note: Pt rested throughout the night, declined getting up to the commode to void, incontinence pad changed.
[2022-04-24 07:00] VITALS: BP 136/78; PULSE 89; RESP 18; TEMP 37; O2SAT 98
--- NOTE | 2022-04-24 07:18 | P.IMPN_ITS ---
Progress Note: A&P Assessment and plan (1) Weakness generalized: Problem details: - patient continues to make progress, although limited. Requiring 1 person assist to the EZ stand; using WC. Requires TCU at this juncture but ultimate goal is to return to independent living (suspect a wheelchair accommodated apartment in assisted living will be needed) - + fall risk - requires bariatric equipment - we are still seeking TCU placement - PT and OT are no longer rounding - she is working daily on reconditioning exercises provided to her by the physical therapy and occupational therapy staff - strict daily weights. Status: Acute (2) Difficulty with BiPAP use: Problem details: Patient has had some issues with fit and comfort with BiPAP mask. This has been affected by the need initially for high pressures as well as a need for change in mask with her weight loss. Inspiratory pressure has decreased from 18-13 which she tolerates much better. She continues to need some assistance with adjusting the mask in the straps for comfort at night Status: Acute (3) Self neglect: Problem details: - Certain level of poor judgment in regard to self cares and self awareness which allowed her to progress to her current state. Did not think to call for help when she was on the floor for several days when she 1st presented. Status: Acute (4) Living accommodation issues: Problem details: Tentative plans to go to long-term care center, down stairs, next week, end of April or beginning of April. Status: Acute (5) Vaginal bleeding: Problem details: - on apixaban for Aflutter; at this time, very high risk for thromboembolic event given comorbidities and immobility - still in rate controlled Atrial flutter by ECG on 04/08 - EUA, EMB and Pap smear 03/12/22 (negative HPV, atypical glandular proliferation). Appreciate Gynecology support; please see final consult note from 03/19/22 - 03/19: Dr. Wagner recommended starting Provera 10mg QD for endometrial protection, until she can safely pursue other surgical options (D&C/hysterectomy, etc) - Progesterone initiated 03/21/22. - 2: vaginal bleeding as become more brisk - like a medium/moderate menses without clots or cramping - 04/05: vaginal bleeding increased, on 04/06 Dr. Edgar Galloway recommended increasing provera to 20mg BID. Bleeding persists but improved. - 04/09: reviewed with Dr. Valdez at [facility] to discuss possibility of transfer vs outpatient f/u; Dr. Valdez notes that we could consider [facility] referral given pap results - longterm plan: hysterectomy in the months ahead; short-term, if needed: D&C vs ablation vs embolization (would require a day trip to IR), plan pending clinical course Status: Acute (6) Iron deficiency anemia secondary to blood loss (chronic): Problem details: Monitor hemoglobin periodically. Started iron supplementation 325 mg of ferrous sulfate once daily on 04/15/2022 - tolerating. Status: Acute (7) Euthyroid sick syndrome: Problem details: TSH 9.1 on 03/25/2022, with normal T4 and T3. Recommend re-check TSH in June 2022. Status: Acute (8) Adjustment disorder: Problem details: - started zoloft 25mg on 03/13, increased to 50mg 03/24 Status: Acute Subjective Date Seen: 04/24/22 Interval history: no acute issues overnight patient has no complaints this morning sitting in chair and engaging in conversation possible discharge sometime next week Exam Narrative: Exam Narrative: Gen: obese female in no acute distress HEENT: NCAT EOMI mmm CV: RRR normal s1 s2 Lungs: CTAB Abd: Soft,nt, nd Neuro: Alert, oriented, CN grossly intact; nonfocal screening?exam Psych: appropriate affect Const: Vital Signs, click to edit/add: Vital Signs - 24 hr 04/23/22 08:00 04/23/22 08:05 04/23/22 08:05 Temperature 99.1 F Pulse Rate Pulse Rate [Left A pical] 87 87 Pulse Rate [Pulse Oximeter] 87 Respiratory Rate 18 18 Blood Pressure [Le ft Arm] 134/72 Pulse Oximetry 97 97 Oxygen Delivery Me thod Room Air Room Air Fraction of Inspir ed Oxygen 04/23/22 09:52 04/23/22 14:42 04/23/22 15:00 Temperature Pulse Rate 76 Pulse Rate [Left A pical] Pulse Rate [Pulse Oximeter] 87 Respiratory Rate 18 Blood Pressure [Le ft Arm] Pulse Oximetry Oxygen Delivery Me thod Fraction of Inspir ed Oxygen 0.21 04/23/22 15:00 04/23/22 19:00 04/23/22 23:00 Temperature 98.6 F Pulse Rate Pulse Rate [Left A pical] Pulse Rate [Pulse Oximeter] 85 Respiratory Rate 16 18 Blood Pressure [Le ft Arm] 132/66 Pulse Oximetry 95 95 Oxygen Delivery Me thod Room Air Room Air Fraction of Inspir ed Oxygen 04/23/22 23:00 Temperature Pulse Rate Pulse Rate [Left A pical] Pulse Rate [Pulse Oximeter] Respiratory Rate Blood Pressure [Le ft Arm] Pulse Oximetry 95 Oxygen Delivery Me thod Room Air BiPAP Fraction of Inspir ed Oxygen
[2022-04-24] MEDS: FUROSEMIDE 40 MG TABLET PO (09:03)
[2022-04-24] MEDS: CHOLESTYRAMINE POWDER 4 GM PO ×2 (09:03→17:37)
[2022-04-24 09:04] VITALS: PULSE 90
[2022-04-24] MEDS: DIGOXIN 250 MCG TABLET PO (09:04)
[2022-04-24] MEDS: POTASSIUM CHLORIDE 10 MEQ CAPSULE ER 20 MEQ PO ×2 (09:04→17:39)
[2022-04-24] MEDS: SPIRONOLACTONE 25 MG TABLET PO (09:05)
[2022-04-24] MEDS: MEDROXYPROGESTERONE 5 MG TABLET 20 MG PO ×2 (09:05→20:22)
[2022-04-24] MEDS: LACTOBACILLUS ACIDOPHILUS 1 TABLET 1 TAB PO ×3 (09:05→17:39)
[2022-04-24] MEDS: FERROUS SULFATE 325 MG TABLET PO (09:06)
[2022-04-24] MEDS: METOPROLOL TARTRATE 100 MG TABLET PO ×2 (09:06→20:23)
[2022-04-24] MEDS: APIXABAN 5 MG TABLET PO ×2 (09:06→20:23)
[2022-04-24] MEDS: SERTRALINE 50 MG TABLET PO (09:06)
[2022-04-24 11:00] VITALS: BP 130/70; PULSE 67; RESP 18; TEMP 36.7; O2SAT 95
[2022-04-24] MEDS: LOPERAMIDE HCL 2 MG CAPSULE PO (12:30)
--- NOTE | 2022-04-24 14:40 | PC.NURSE ---
Shift note [id number]: VS WNL and LS COA. Patient Ax2 with EZ stand and participates in activity with moderate encouragement. Several loose stools, loperimide initially held this morning but given this afternoon. No vaginal bleeding noticed this morning, but patient did experience some moderate bleeding this afternoon. LE's cleansed and rewrapped, SCDs in place. Patient has been continent of both bowel and bladder this shift.
[2022-04-24 15:00] VITALS: PULSE 67; RESP 18; O2SAT 95
[2022-04-24 19:00] VITALS: BP 139/80; PULSE 84; RESP 18; TEMP 36.9; O2SAT 95
[2022-04-24] MEDS: NYSTATIN POWDER 1 APPLIC TOPICAL (21:24)
[2022-04-24] MEDS: MELATONIN 3 MG TABLET PO (22:36)
[2022-04-24 22:43] VITALS: RESP 18; O2SAT 95
--- NOTE | 2022-04-24 23:49 | PC.NURSE ---
[id number]: pleasant and cooperative. small amount red blood on brief insert. bipap placed at 2240. melatonin given. tolerated transfers with ez stand to w/c and to bed. lotion applied to dry skin.
[2022-04-25 07:00] VITALS: BP 143/89; PULSE 72; RESP 18; TEMP 36.8; O2SAT 93
[2022-04-25] MEDS: CHOLESTYRAMINE POWDER 4 GM PO ×2 (08:32→18:37)
[2022-04-25] MEDS: POTASSIUM CHLORIDE 10 MEQ CAPSULE ER 20 MEQ PO ×2 (08:32→18:36)
[2022-04-25] MEDS: LOPERAMIDE HCL 2 MG CAPSULE PO (08:32)
[2022-04-25 08:33] VITALS: PULSE 72
[2022-04-25] MEDS: DIGOXIN 250 MCG TABLET PO (08:33)
[2022-04-25] MEDS: FUROSEMIDE 40 MG TABLET PO (08:33)
[2022-04-25] MEDS: METOPROLOL TARTRATE 100 MG TABLET PO ×2 (08:33→21:10)
[2022-04-25] MEDS: SPIRONOLACTONE 25 MG TABLET PO (08:33)
[2022-04-25] MEDS: LACTOBACILLUS ACIDOPHILUS 1 TABLET 1 TAB PO ×3 (08:33→18:37)
[2022-04-25] MEDS: MEDROXYPROGESTERONE 5 MG TABLET 20 MG PO ×2 (08:33→21:10)
[2022-04-25] MEDS: FERROUS SULFATE 325 MG TABLET PO (08:33)
[2022-04-25] MEDS: SERTRALINE 50 MG TABLET PO (08:34)
[2022-04-25] MEDS: APIXABAN 5 MG TABLET PO ×2 (08:34→21:10)
--- NOTE | 2022-04-25 12:42 | PM.IMPN1 ---
Progress Note: A&P Assessment and plan (1) Fall: Problem details: - secondary to weakness and deconditioning - on the ground for 3 days prior to admission. Continue to work on strengthening Status: Acute (2) Weakness generalized: Problem details: - patient continues to make progress, although limited. Requiring 1 person assist to the EZ stand; using WC. Requires TCU at this juncture but ultimate goal is to return to independent living (suspect a wheelchair accommodated apartment in assisted living will be needed) - + fall risk - requires bariatric equipment - we are still seeking TCU placement - PT and OT are no longer rounding - she is working daily on reconditioning exercises provided to her by the physical therapy and occupational therapy staff - strict daily weights. Status: Acute (3) Self neglect: Problem details: - Certain level of poor judgment in regard to self cares and self awareness which allowed her to progress to her current state. Did not think to call for help when she was on the floor for several days when she 1st presented. Status: Acute (4) Living accommodation issues: Problem details: Tentative plans to go to long-term care [place], down stairs, next week, end of April or beginning of April. Status: Acute (5) Iron deficiency anemia secondary to blood loss (chronic): Problem details: Monitor hemoglobin periodically. Started iron supplementation 325 mg of ferrous sulfate once daily on 04/15/2022 - tolerating. Status: Acute (6) Difficulty with BiPAP use: Problem details: Patient has had some issues with fit and comfort with BiPAP mask. This has been affected by the need initially for high pressures as well as a need for change in mask with her weight loss. Inspiratory pressure has decreased from 18-13 which she tolerates much better. She continues to need some assistance with adjusting the mask in the straps for comfort at night Status: Acute (7) Euthyroid sick syndrome: Problem details: TSH 9.1 on 03/25/2022, with normal T4 and T3. Recommend re-check TSH in June 2022. Status: Acute (8) Sarcopenia: Problem details: - Consistent with her malnourished state - Striving to improve muscle strength and endurance, and slowly improving Status: Acute (9) Adjustment disorder: Problem details: - started zoloft 25mg on 03/13, increased to 50mg 03/24 Status: Acute (10) Atrial flutter with rapid ventricular response: Problem details: - Rate controlled on digoxin and metoprolol, no acute cardiovascular issues currently - Eliquis for prophylaxis - TTE obtained 03/03 Final Impressions: 1. Technically very limited exam. 2. Normal LV size, normal global systolic function with an estimated EF of 60 - 65%. 3. Enlarged RV w/ reduced function, incompletely visualized. 4. Moderately enlarged left atrium. 5. No hemodynamically significant valve disease detected. Status: Acute (11) Acute respiratory failure with hypercapnia: Problem details: Acute respiratory failure resolved. Now on BiPAP at night. tolerating this much better with lower pressures Status: Acute (12) Venous insufficiency (chronic) (peripheral): Status: Acute (13) Vaginal bleeding: Problem details: - on apixaban for Aflutter; at this time, very high risk for thromboembolic event given comorbidities and immobility - still in rate controlled Atrial flutter by ECG on 04/08 - EUA, EMB and Pap smear 03/12/22 (negative HPV, atypical glandular proliferation). Appreciate Gynecology support; please see final consult note from 03/19/22 - 03/19: Dr. Wagner recommended starting Provera 10mg QD for endometrial protection, until she can safely pursue other surgical options (D&C/hysterectomy, etc) - Progesterone initiated 03/21/22. - 2/2: vaginal bleeding as become more brisk - like a medium/moderate menses without clots or cramping - 04/05: vaginal bleeding increased, on 04/06 Dr. Edgar Galloway recommended increasing provera to 20mg BID. Bleeding persists but improved. - 04/09: reviewed with Dr. Valdez at [facility] to discuss possibility of transfer vs outpatient f/u; Dr. Valdez notes that we could consider [facility]-Onc referral given pap results - terminal carman plan: hysterectomy in the months ahead; short-term, if needed: D&C vs ablation vs embolization (would require a day trip to IR), plan pending clinical course Status: Acute (14) Stage III pressure ulcer of buttock: Problem details: Per secondhand report her ulcers are healing well Status: Acute (15) Incontinence associated dermatitis: Problem details: monitor skin now that Ghosh catheter is out. Status: Acute (16) Pressure ulcer of buttock: Problem details: - General surgery, I&D in OR 03/04. Dr. Rice will round 2x/week while patient is here - Zosyn initiated on admission, discontinued on 03/06 - wound care is progressing and now is only needed M.W.F and prn Status: Acute (17) Lymphedema associated with obesity: Problem details: - Continue to work on compression . Probably will not have lymphedema pumps at the long-term care center Status: Acute (18) Obesity: Problem details: - Continue to work on diet, high-protein and calorie restricted Weight now down to 304 lb on April 19 2022. Will allow 1 ice cream treat per week. Patient understands that ongoing success with weight loss will not work with return to previous dietary habits Status: Acute Subjective Date Seen: 04/25/22 Interval history: No new events overnight BIPAP mask did not arrive last night tolerating diet Exam Narrative: Exam Narrative: Gen: obese female in no acute distress HEENT: NCAT EOMI mmm Neck: Supple CV: RRR normal s1 s2 Lungs: CTAB Abd: Soft,nt, nd Neuro: Alert, oriented, CN grossly intact; nonfocal screening?exam Psych: appropriate affect Const: Vital Signs, click to edit/add: Vital Signs - 24 hr 04/24/22 15:00 04/24/22 15:00 04/24/22 19:00 Temperature 98.5 F Pulse Rate Pulse Rate [Pulse Oximeter] 67 84 Respiratory Rate 18 18 18 Blood Pressure [Le ft Arm] Blood Pressure [Ri ght Arm] 139/80 Pulse Oximetry 95 95 Oxygen Delivery Me thod Room Air Room Air Fraction of [facility] ed Oxygen 04/24/22 22:43 04/24/22 22:43 04/25/22 08:33 Temperature Pulse Rate 72 Pulse Rate [Pulse Oximeter] Respiratory Rate 18 Blood Pressure [Le ft Arm] Blood Pressure [Ri ght Arm] Pulse Oximetry 95 Oxygen Delivery [facility]od [facility] 04/25/22 07:00 04/25/22 07:00 04/25/22 07:00 Temperature 98.3 F Pulse Rate Pulse Rate [Pulse Oximeter] 72 72 Respiratory Rate 18 18 18 Blood Pressure [Le ft Arm] 143/89 H Blood Pressure [Ri ght Arm] Pulse Oximetry 93 93 Oxygen Delivery Me thod Room Air [facility] 04/25/22 11:54 Temperature Pulse Rate Pulse Rate [Pulse Oximeter] Respiratory Rate Blood Pressure [Le ft Arm] Blood Pressure [Ri ght Arm] Pulse Oximetry Oxygen Delivery Me thod Fraction of Inspir ed Oxygen 0.21
[2022-04-25 15:00] VITALS: PULSE 72; RESP 18; O2SAT 93
--- NOTE | 2022-04-25 18:40 | PC.NURSE ---
Shift Note: Pt active in her daily routine, using EZ-stand with assist x2 to the BR. Once set up independently at counter in her wheelchair, pt is able to wash up and brush her teeth. After lunch pt has been able to stand for 5 minutes with foot plate removed from EZ-stand. Independently completes arm exercises. IS to 1500. Plans to d/c Wednesday to [facility]. VS WNL and denies pain.
[2022-04-25 20:40] VITALS: BP 122/53; PULSE 76; RESP 20; TEMP 37; O2SAT 97
[2022-04-25] MEDS: NYSTATIN POWDER 1 APPLIC TOPICAL (21:10)
[2022-04-25] MEDS: MELATONIN 3 MG TABLET PO (22:35)
[2022-04-25 23:00] VITALS: PULSE 76; RESP 20; O2SAT 98
[2022-04-26 07:00] VITALS: BP 144/79; PULSE 65; RESP 20; TEMP 36.8; O2SAT 96
[2022-04-26] MEDS: CHOLESTYRAMINE POWDER 4 GM PO ×2 (09:29→18:18)
[2022-04-26 09:30] VITALS: PULSE 68
[2022-04-26] MEDS: DIGOXIN 250 MCG TABLET PO (09:30)
[2022-04-26] MEDS: SERTRALINE 50 MG TABLET PO (09:30)
[2022-04-26] MEDS: FERROUS SULFATE 325 MG TABLET PO (09:30)
[2022-04-26] MEDS: MEDROXYPROGESTERONE 5 MG TABLET 20 MG PO ×2 (09:30→21:21)
[2022-04-26] MEDS: APIXABAN 5 MG TABLET PO ×2 (09:31→21:21)
[2022-04-26] MEDS: LOPERAMIDE HCL 2 MG CAPSULE PO (09:31)
[2022-04-26] MEDS: METOPROLOL TARTRATE 100 MG TABLET PO ×2 (09:32→21:21)
[2022-04-26] MEDS: SPIRONOLACTONE 25 MG TABLET PO (09:32)
[2022-04-26] MEDS: FUROSEMIDE 40 MG TABLET PO (09:32)
[2022-04-26] MEDS: LACTOBACILLUS ACIDOPHILUS 1 TABLET 1 TAB PO ×3 (09:33→18:18)
[2022-04-26] MEDS: POTASSIUM CHLORIDE 10 MEQ CAPSULE ER 20 MEQ PO ×2 (09:33→18:18)
--- NOTE | 2022-04-26 12:35 | P.IMPN_ITS ---
Progress Note: A&P Assessment and plan (1) Living accommodation issues: Problem details: Tentative plans to go to long-term care [place], down stairs, next week, end of April or beginning of April. Status: Acute (2) Fall: Problem details: - secondary to weakness and deconditioning - on the ground for 3 days prior to admission. Continue to work on strengthening Status: Acute (3) Weakness generalized: Problem details: - patient continues to make progress, although limited. Requiring 1 person assist to the EZ stand; using WC. Requires TCU at this juncture but ultimate goal is to return to independent living (suspect a wheelchair accommodated apartment in assisted living will be needed) - + fall risk - requires bariatric equipment - we are still seeking TCU placement - PT and OT are no longer rounding - she is working daily on reconditioning exercises provided to her by the physical therapy and occupational therapy staff - strict daily weights. Status: Acute (4) Self neglect: Problem details: - Certain level of poor judgment in regard to self cares and self awareness which allowed her to progress to her current state. Did not think to call for help when she was on the floor for several days when she 1st presented. Status: Acute (5) Difficulty with BiPAP use: Problem details: Patient has had some issues with fit and comfort with BiPAP mask. This has been affected by the need initially for high pressures as well as a need for change in mask with her weight loss. Inspiratory pressure has decreased from 18-13 which she tolerates much better. She continues to need some assistance with adjusting the mask in the straps for comfort at night Status: Acute Subjective Date Seen: 04/26/22 Interval history: no acute issues overnight Patient remains in Good spirits hoping to discharge sometime next week Exam Narrative: Exam Narrative: Gen: morbidly obese female no acute distress HEENT: NCAT EOMI mmm Neck: Supple CV: RRR normal s1 s2 Lungs: CTAB Abd: Soft,nt, nd Neuro: Alert, oriented, CN grossly intact; nonfocal screening?exam Psych: appropriate affect Const: Vital Signs, click to edit/add: Vital Signs - 24 hr 04/26/22 11:21 04/25/22 15:00 04/25/22 15:00 Temperature Pulse Rate Pulse Rate [Pulse Oximeter] 72 Respiratory Rate 18 18 Blood Pressure [Le ft Arm] Pulse Oximetry 93 Oxygen Delivery Me thod Room Air Fraction of Inspir ed Oxygen 0.21 04/25/22 20:40 04/25/22 23:00 04/25/22 23:00 Temperature 98.6 F Pulse Rate Pulse Rate [Pulse Oximeter] 76 76 Respiratory Rate 20 20 Blood Pressure [Le ft Arm] 122/53 L Pulse Oximetry 97 98 Oxygen Delivery Me thod Room Air BiPAP Fraction of Inspir ed Oxygen 04/26/22 07:00 04/26/22 07:00 04/26/22 07:00 Temperature 98.2 F Pulse Rate Pulse Rate [Pulse Oximeter] 65 65 Respiratory Rate 20 20 20 Blood Pressure [Le ft Arm] 144/79 H Pulse Oximetry 96 96 Oxygen Delivery Me thod Room Air BiPAP Room Air Fraction of Inspir ed Oxygen 04/26/22 09:30 Temperature Pulse Rate 68 Pulse Rate [Pulse Oximeter] Respiratory Rate Blood Pressure [Le ft Arm] Pulse Oximetry Oxygen Delivery Me thod Fraction of Inspir ed Oxygen
[2022-04-26 15:00] VITALS: PULSE 65; RESP 18; RESP 20; O2SAT 96
[2022-04-26 19:00] VITALS: PULSE 85; RESP 18; O2SAT 96
[2022-04-26] MEDS: NYSTATIN POWDER 1 APPLIC TOPICAL (21:21)
[2022-04-26] MEDS: MELATONIN 3 MG TABLET PO (22:30)
[2022-04-26 23:00] VITALS: RESP 18; O2SAT 96
[2022-04-27] VITALS (7 sets, daily range): BP systolic 130; BP diastolic 68; PULSE 74–98; RESP 18–20; TEMP 36.6; O2SAT 98
--- NOTE | 2022-04-27 06:33 | PC.NURSE ---
19-: pleasant and cooperative. 1 x incont urine. In chair till 0. Bipap placed at 2300. Slept throughout the night. Moderate amount of red blood on brief insert. Lotion applied to dry skin. Nystatin to sepideh area and skin folds
[2022-04-27] MEDS: POTASSIUM CHLORIDE 10 MEQ CAPSULE ER 20 MEQ PO ×2 (10:10→18:04)
[2022-04-27] MEDS: LACTOBACILLUS ACIDOPHILUS 1 TABLET 1 TAB PO ×3 (10:11→18:05)
[2022-04-27] MEDS: MEDROXYPROGESTERONE 5 MG TABLET 20 MG PO ×2 (10:11→20:16)
[2022-04-27] MEDS: CHOLESTYRAMINE POWDER 4 GM PO ×2 (10:11→18:05)
[2022-04-27] MEDS: SERTRALINE 50 MG TABLET PO (10:12)
[2022-04-27] MEDS: METOPROLOL TARTRATE 100 MG TABLET PO ×2 (10:12→20:16)
[2022-04-27] MEDS: FUROSEMIDE 40 MG TABLET PO (10:12)
[2022-04-27] MEDS: APIXABAN 5 MG TABLET PO ×2 (10:12→20:16)
[2022-04-27] MEDS: SPIRONOLACTONE 25 MG TABLET PO (10:12)
[2022-04-27] MEDS: FERROUS SULFATE 325 MG TABLET PO (10:13)
[2022-04-27] MEDS: LOPERAMIDE HCL 2 MG CAPSULE PO (10:13)
[2022-04-27] MEDS: DIGOXIN 250 MCG TABLET PO (10:14)
[2022-04-27] MEDS: NYSTATIN POWDER 1 APPLIC TOPICAL ×2 (10:48→20:17)
--- NOTE | 2022-04-27 12:53 | P.IMPN_ITS ---
Progress Note: A&P Assessment and plan (1) Living accommodation issues: Problem details: - likely transitioning to long-term care center this week Status: Acute (2) Fall: Problem details: - secondary to weakness and deconditioning, was on the ground for 3 days prior to admission - continue to work on strength and conditioning per below Status: Acute (3) Weakness generalized: Problem details: - patient continues to make progress, although limited. Requiring 1 person assist to the EZ stand; using WC. Requires TCU at this juncture but ultimate goal is to return to independent living (suspect a wheelchair accommodated apartment in assisted living will be needed) - + fall risk - requires bariatric equipment - PT and OT are no longer rounding regularly - she is working daily on reconditioning exercises provided to her by the physical therapy and occupational therapy staff - strict daily weights Status: Acute (4) Self neglect: Problem details: - Certain level of poor judgment in regard to self cares and self awareness which allowed her to progress to her current state. Did not think to call for help when she was on the floor for several days when she 1st presented. Status: Acute (5) Difficulty with BiPAP use: Problem details: - some issues with fit and comfort of BiPAP mask, affected by the need initially for high pressures, in addition to a need for mask size change 2/2 weight loss - inspiratory pressure has decreased from 18-->13 which she tolerates much better, continues to require assistance adjusting the mask straps for comfort at night Status: Acute (6) Vaginal bleeding: Problem details: - on apixaban for Aflutter noted on admission 03/02/22; at this time, very high risk for thromboembolic event given comorbidities and immobility - still in rate controlled Atrial flutter by ECG on 04/08/22 - EUA, EMB and Pap smear 03/12/22 (negative HPV, atypical glandular proliferation). Appreciate Gynecology support; please see final consult note from 03/19/22 - 03/19: Dr. Wagner recommended starting Provera 10mg QD for endometrial protection, until she can safely pursue other surgical options (D&C/hysterectomy, etc) - Progesterone initiated 03/21/22. - 2/2: vaginal bleeding as become more brisk - like a medium/moderate menses without clots or cramping - 04/05: vaginal bleeding increased, on 04/06 Dr. Edgar Galloway recommended increasing provera to 20mg BID. Bleeding persists but improved. - 04/09: reviewed with Dr. Valdez at [facility] to discuss possibility of transfer vs outpatient f/u; Dr. Valdez notes that we could consider outpt Manager Communication-Onc referral given pap results - exterminator helper plan: hysterectomy; short-term, if needed: D&C vs ablation vs embolization (would require a day trip to IR), plan pending clinical course Status: Acute (7) Atrial flutter with rapid ventricular response: Problem details: - Rate controlled on digoxin and metoprolol, no acute cardiovascular issues - Eliquis for prophylaxis - TTE obtained 03/03/22 Final Impressions: 1. Technically very limited exam. 2. Normal LV size, normal global systolic function with an estimated EF of 60 - 65%. 3. Enlarged RV w/ reduced function, incompletely visualized. 4. Moderately enlarged left atrium. 5. No hemodynamically significant valve disease detected. Status: Acute Plan - continue current treatments and medications - to LTCC this week Subjective Date Seen: 04/27/22 Interval history: Emily has been on our Med Surg floor since 03/02; initially admitted after a fall at home and found to be in new onset atrial flutter. Other notable findings throughout stay: Postmenopausal DUB, weight management, deconditioning, KEVEN, pressure ulcer requiring wound care and general surgery referral, and lymphedema. She has remained medically stable, we are hoping to discharge her to our long- term care center this week. Exam Narrative: Exam Narrative: GEN: Alert and oriented, sitting comfortably in bedside chair CV: Pulse in the 90s, No concerning murmurs, rubs, or gallops R: LCTA bilaterally without concerning wheezing, rales, or rhonchi Ext: Wearing compression wraps and pumps Skin: No concerning skin lesions or rashes on exposed skin, sacral ulcer not formally examined Neuro: Nonfocal Psych: Appropriate Const: Vital Signs, click to edit/add: Vital Signs - 24 hr 04/27/22 07:36 04/26/22 15:00 04/26/22 15:00 Temperature Pulse Rate Pulse Rate [Left A pical] Pulse Rate [Pulse Oximeter] 65 Respiratory Rate 20 18 Blood Pressure [Le ft Arm] Pulse Oximetry 96 Oxygen Delivery Me thod Room Air Oxygen Flow Rate Fraction of Inspir ed Oxygen 0.21 04/26/22 23:00 04/26/22 23:00 04/26/22 19:00 Temperature Pulse Rate Pulse Rate [Left A pical] 85 Pulse Rate [Pulse Oximeter] Respiratory Rate 18 18 Blood Pressure [Le ft Arm] Pulse Oximetry 96 96 Oxygen Delivery Me thod Room Air Room Air Oxygen Flow Rate 97 Fraction of Inspir ed Oxygen 04/27/22 10:14 04/27/22 10:51 04/27/22 07:00 Temperature 97.8 F Pulse Rate 74 Pulse Rate [Left A pical] 74 Pulse Rate [Pulse Oximeter] 98 Respiratory Rate 20 Blood Pressure [Le ft Arm] 130/68 Pulse Oximetry 98 98 Oxygen Delivery Me thod Room Air Room Air Oxygen Flow Rate Fraction of Inspir ed Oxygen
--- NOTE | 2022-04-27 14:55 | PC.SOCIAL ---
Pt. has been accepted to the [facility] for tomorrow. PAS completed # [id number]. Left a message for pt. [facility] [employer] Secretary at [phone]. to update.
--- NOTE | 2022-04-27 16:11 | NUTR.NU ---
RDN with length of stay (LOS)/follow-up visit: RDN attempted to visit with patient multiple times today, however patient was not available at attempts. RDN will attempt to follow-up with patient tomorrow.
--- NOTE | 2022-04-27 19:46 | PC.NURSE ---
shift note: vss stable. pt up with EZ lift. drsg c/d/i to rt buttock. pt had formed med BM. Pt denies pain.
[2022-04-27] MEDS: MELATONIN 3 MG TABLET PO (21:38)
--- NOTE | 2022-04-28 06:36 | PC.NURSE ---
: pt to go to LTC downstairs today at 1000. Pt up early expressing some anxiety r/t the move to LTC and meeting new ppl. Mepi to buttock CDI. Sm amt red vaginal blood to brief insert.?
[2022-04-28 07:11] LABS: Basophils Percent Auto 0.5 % (0.0-3.0); Eosinophils Percent Auto 5.5 % (0.0-7.0); Hematocrit 38.4 % (33.0-51.0); Immature Granulocytes Pct Auto 0.2 %; Lymphocytes Percent Auto 39.1 % (20-44); Mean Corpuscular HGB Conc 31 gm/dL (32-36); Mean Corpuscular Hemoglobin 27 pg (26-34); Mean Corpuscular Volume 85 fL (80-100); Monocytes Percent Auto 9.7 % (0.0-11.0); Platelet Count* 237 K/uL (140-440); RDW Coefficient of Variation % 14.6 % (11.5-15.5); Red Blood Count 4.51 m/uL (4.00-5.20); White Blood Count* 4.35 K/uL (4.50-11.00)
[2022-04-28 07:21] LABS: Slide Review Reflex No
[2022-04-28 07:22] LABS: Chloride* 109 mmol/L (96-114); Potassium* 4.7 mmol/L (3.6-5.1); Sodium* 138 mmol/L (135-149)
[2022-04-28 07:25] LABS: Blood Urea Nitrogen* 12 mg/dL (7-30); Carbon Dioxide* 26 mmol/L (20-32); Creatinine* 0.8 mg/dL (0.5-1.5); Est. Creatinine Clearance* 43.91; Estimated Glomerular Filt Rate 78 ml/min
[2022-04-28 07:26] LABS: Calcium* 9.4 mg/dL (8.4-10.6); Glucose* 105 mg/dL (60-115)
[2022-04-28 07:35] VITALS: BP 120/64; RESP 18; TEMP 36.6; O2SAT 96
[2022-04-28 08:59] VITALS: PULSE 66
[2022-04-28] MEDS: NYSTATIN POWDER 1 APPLIC TOPICAL (08:59)
[2022-04-28] MEDS: DIGOXIN 250 MCG TABLET PO (08:59)
[2022-04-28] MEDS: POTASSIUM CHLORIDE 10 MEQ CAPSULE ER 20 MEQ PO (08:59)
[2022-04-28] MEDS: LOPERAMIDE HCL 2 MG CAPSULE PO (08:59)
[2022-04-28] MEDS: CHOLESTYRAMINE POWDER 4 GM PO (08:59)
[2022-04-28] MEDS: SPIRONOLACTONE 25 MG TABLET PO (09:00)
[2022-04-28] MEDS: SERTRALINE 50 MG TABLET PO (09:00)
[2022-04-28] MEDS: FERROUS SULFATE 325 MG TABLET PO (09:00)
[2022-04-28] MEDS: APIXABAN 5 MG TABLET PO (09:00)
[2022-04-28] MEDS: MEDROXYPROGESTERONE 5 MG TABLET 20 MG PO (09:01)
[2022-04-28] MEDS: LACTOBACILLUS ACIDOPHILUS 1 TABLET 1 TAB PO (09:01)
[2022-04-28] MEDS: METOPROLOL TARTRATE 100 MG TABLET PO (09:01)
[2022-04-28] MEDS: FUROSEMIDE 40 MG TABLET PO (09:01)
--- NOTE | 2022-04-28 10:17 | PC.NURSE ---
discharge --Pt has been very pleasant.? , alert and oriented x4.? She denied any pain.?she is eating, drinking and voiding.? she had a BM. ? She was up to the chair and commode with EZ stand and tolerated it well.? leg wraps are on.? dressing was clean dry and intact. nurse to nurse was called to lt. she had a BM and voided this am. legs are wrapped. no SL she was taken down in a w/c./ we sent the recliner with her.
--- NOTE | 2022-04-28 12:08 | PM.DS1 ---
DS: Providers Provider Date Seen: 04/28/22 Date of admission: 03/02/22 16:26 Primary care physician: Not a Local Provider Admitting Clinician: Adriano Mujica MD Consults: OT, PT, General Surgery, Gynecology, Nutrition, Wound care Attending Physician on discharge: Pia Feldman MD Date of Discharge: 04/28/22 DS: Diagnosis Discharge Diagnosis (1) Atrial flutter with rapid ventricular response: Status: Acute Problem details: - Rate controlled on digoxin and metoprolol, Eliquis for prophylaxis - TTE obtained 03/03/22 Final Impressions: 1. Technically very limited exam. 2. Normal LV size, normal global systolic function with an estimated EF of 60 - 65%. 3. Enlarged RV w/ reduced function, incompletely visualized. 4. Moderately enlarged left atrium. 5. No hemodynamically significant valve disease detected. (2) Pressure ulcer of buttock: Status: Acute (3) Weakness generalized: Status: Acute (4) Adjustment disorder: Status: Acute Problem details: - started zoloft 25mg on 03/13, increased to 50mg 03/24 (5) Vaginal bleeding: Status: Acute Problem details: - details noted in d/c summary 04/28/2022 (6) Iron deficiency anemia secondary to blood loss (chronic): Status: Acute (7) Euthyroid sick syndrome: Status: Acute Problem details: - TSH 9.1 on 03/25/2022, normal T4 and T3 - Recommend re-check TSH in June 2022 (8) Hematuria: Status: Acute (9) Lymphedema associated with obesity: Status: Acute (10) Protein-calorie malnutrition, mild: Status: Acute Problem details: - Albumin consistently low at 2.6-2.8. Total cholesterol 103. - followed by dietary team (11) KEVEN treated with BiPAP: Status: Acute DS: Summary Hospital Course Hospital Course: Emily is a very pleasant 72-year-old female who was admitted to the hospital on March 02 after a fall at home. She was unable to get up; remain on her floor for 3 days prior to calling ambulance for hospital transfer. Upon arrival to the emergency room, she was found to be in atrial flutter and severely deconditioned; admitted at that time. Patient had not been seen by primary care for >20 years prior to hospitalization, was on no regular medications. She had a lengthy hospital stay, notable findings below (in addition to problem list above): 1. Atrial flutter - initially rate controlled with IV diltiazem, eventually transitioned to oral medications - placed on Eliquis for prophylaxis - follow-up EKGs during stay exhibited persistent atrial flutter - upon discharge, rate controlled on digoxin and metoprolol - reviewed case with Cardiology by phone during stay; given patient's stability otherwise and asymptomatic state, recommend outpatient follow-up with Cardiology - TTE obtained 03/03/22 Final Impressions: 1. Technically very limited exam. 2. Normal LV size, normal global systolic function with an estimated EF of 60 - 65%. 3. Enlarged RV w/ reduced function, incompletely visualized. 4. Moderately enlarged left atrium. 5. No hemodynamically significant valve disease detected. 2. Decubitis ulcer - stage III, right buttock, noted on admission - followed by General surgery and Wound Care - continual slow improvement noted throughout hospital stay - did not require long course of antibiotic therapy - given severity of ulcer on presentation, Ghosh catheter was placed to minimize worsening of ulcer via dermatitis 2/2 urinary incontinence. - Intermittent hematuria noted in Ghosh catheter, eventually resolved. Imaging revealed no source for hematuria, consider outpatient urology consult in the future if hematuria recurs - Ghosh removed prior to discharge 3. Postmenopausal DUB - patient noted long history of dysfunctional uterine bleeding, had not been seen as an outpatient for this - Gynecology consulted during stay - EUA, EMB and Pap smear performed 03/12/22 (negative HPV, atypical glandular proliferation) - 03/19: Dr. Wagner recommended starting Provera 10mg QD for endometrial protection, until she can safely pursue other surgical options (D&C/hysterectomy, etc) - Progesterone initiated 03/21/22. - 2/2 high Advair Kelle sent - 04/05: vaginal bleeding increased, on 04/06 Dr. Edgar Galloway recommended increasing provera to 20mg BID. Bleeding persists but improved. - 04/09: reviewed with Dr. Valdez at [facility] to discuss possibility of transfer vs outpatient f/u; Dr. Valdez recommends outpt Junior Manufacturing Engineer-Onc referral given pap results - reviewed risks and benefits of anticoagulation given vaginal bleeding; patient is very high risk for thromboembolic event given her comorbidities and immobility - bleeding improved with higher dose of Provera; patient also on oral iron daily and hemoglobin stable at 12.0 upon discharge (heide of 10.4) - buttermilk drier operator plan: Outpatient gynecology follow-up to discuss hysterectomy; short-term (if needed): D&C vs ablation vs embolization (would require a day trip to IR), plan pending clinical course 4. Diarrhea - noted after initial antibiotic therapy for sacral ulcer, present prior to initiation of Zoloft - persisted after discontinuation of antibiotic, C diff negative - worked on diet changes with some relief - discharge plan: Cholestyramine BID prn, diet monitoring by patient 5. Significant deconditioning - Emily was followed by PT and OT during stay - she completed course of therapy, continue to work on strengthening in her room prior to discharge - will continue to follow with therapies on a prn basis upon discharge to our [facility] - long-term goal: Independent living (was in an apartment prior to admission) - some depression noted during stay regarding changes; Zoloft initiated with good results 6. Weight management - admission BMI 58 - patient seen by dietitian throughout stay, lost approximately 70 lb during hospital stay 7. KEVEN - BiPAP initiated, patient tolerated well - she will continue this upon discharge 8. Lymphedema - tolerated wraps and leg pumps for treatment - also treated with spironolactone and Lasix, anticipate that she will be able to taper off of these in the future with continued weight loss and improvement of lymphedema - electrolytes remained stable Status at Discharge Overall status at discharge: patient is progressing back to baseline Time Spent with Patient Time attestation: Total time spent providing and/or coordinating discharge services: Time spent: Greater than 30 minutes Specific discharge activities: Medication reconciliation, problem reconciliation, documentation Exam Narrative: Exam Narrative: GEN: Alert and oriented, sitting comfortably in bedside recliner, speaking in full sentences, nontoxic in appearance HEENT: EOMIs bilaterally, no scleral icterus Ext: Extremities wrapped Skin: No concerning skin lesions or rashes on exposed skin Neuro: Nonfocal Psych: Appropriate Const: Vital Signs, click to edit/add: Vital Signs - 24 hr 04/27/22 15:00 04/27/22 21:57 04/27/22 19:00 Temperature Pulse Rate Respiratory Rate 18 20 Blood Pressure [Ri ght Arm] Pulse Oximetry 98 98 Oxygen Delivery Me thod Room Air Room Air 04/27/22 23:00 04/28/22 07:35 04/28/22 07:35 Temperature 97.9 F Pulse Rate Respiratory Rate 18 Blood Pressure [Ri ght Arm] 120/64 Pulse Oximetry 98 96 96 Oxygen Delivery Me thod Room Air Room Air Room Air 04/28/22 07:35 04/28/22 08:59 Temperature Pulse Rate 66 Respiratory Rate 18 Blood Pressure [Ri ght Arm] Pulse Oximetry Oxygen Delivery Me thod DS: Data Data Completed and Pending Labs on day of discharge: Labs from last 24 hours 04/28/22 04/28/22 06:54 06:54 WBC 4.35 L RBC 4.51 Hgb 12.0 Hct 38.4 MCV 85 MCH 27 MCHC 31 L RDW Coeff of Sal 14.6 Plt Count 237 Neut % (Auto) 45.0 Lymph % (Auto) 39.1 [place] % (Auto) 9.7 Eos % (Auto) 5.5 Baso % (Auto) 0.5 Neut # (Auto) 2.00 Lymph # (Auto) 1.70 [place] # (Auto) 0.40 Eos # (Auto) 0.20 Baso # (Auto) 0.00 Sodium 138 Potassium 4.7 Chloride 109 Carbon Dioxide 26 BUN 12 Creatinine 0.8 Estimated Creat Clear 43.91 Estimated GFR 78 Glucose 105 Calcium 9.4 Discharge Plan Discharge Disposition: [facility] Date of Admission: 03/02/22 16:26 Attending Provider on Discharge: Pia Feldman Consulting Providers: Kortney Rice ; Kiara Wagner Primary Care Provider: Provider,Not a Local Condition: Unchanged Anticipated Discharge Date/Time: 04/28/22 10:00 Discharge Medications: New furosemide 40 mg Tablet 40 mg PO DAILY@0800 Qty: 30 0RF potassium chloride 10 mEq Capsule, Extended Release 20 meq PO BIDWM Qty: 60 0RF acetaminophen 325 mg Tablet 975 mg PO Q8H PRNQty: 60 0RF loperamide 2 mg Capsule 2 mg PO QAM Qty: 30 0RF metoprolol tartrate 100 mg Tablet 100 mg PO BID Qty: 60 0RF medroxyprogesterone 5 mg Tablet 20 mg PO BID Qty: 60 0RF melatonin 3 mg Tablet 3 - 6 mg PO HS PRNQty: 30 0RF digoxin 250 mcg (0.25 mg) Tablet 250 mcg PO DAILY Qty: 30 0RF spironolactone 25 mg Tablet 25 mg PO DAILY Qty: 30 0RF ferrous sulfate 325 mg (65 mg iron) Tablet 325 mg PO DAILYWM Qty: 30 0RF nystatin 100,000 unit/gram Powder 1 applic topical BID Qty: 60 0RF sertraline 50 mg Tablet 50 mg PO DAILY Qty: 30 0RF cholestyramine-aspartame 4 gram Powder In Packet 4 g PO BID@0800,1800 Qty: 60 0RF Eliquis 5 mg Tablet 5 mg PO BID Qty: 60 0RF Lactobacillus acidophilus 0.5 mg (100 million cell) Tablet 0.5 mg PO TIDWM Qty: 30 0RF Discharge Orders: Discharge Order (Routine); Ordered 04/27/22 Ordered By: Pia Feldman Additional Instructions: Upon discharge from [facility], will need outpatient followup with: 1. Cardiology for atrial flutter with RVR 2. Gynecology-Oncology for postmenopausal DUB with thickened endometrial stripe, abnormal pap. 3. Urology for inpatient hematuria (may disregard if this resolves). Activity Level: Other Discharge Diet: Other Follow Up Appointments: Provider,Not a Local [Primary Care Provider] - Wound Care: see RN notes/orders Admit to: SNF Discharge Potential: Fair Length of Stay: 30-90 days Can use facility standing orders?: Yes Code Status: Full Code Rehab Potential: Fair Therapy: Physical Therapy and Occupational Therapy Therapy Orders: Evaluate and Treat Oxygen: No Oxygen Delivery Method: BIPAP at night Urinary Catheter: No Glucose Checks: n/a Next INR: n/a Lab Orders: CBC and BMP in 10 days Orders are good >30 days: Yes Signature: Pia Feldman MD
== END 2022-04-28 10:20 | DRG 463 ==
LOC: ED 14:10 → MEDSURG 15:36
PROVIDERS: Family Medicine; Hospitalist; Obstetrics & Gynecology; Surgery; Admitting Provider Internal Medicine; Emergency Provider Emergency Medicine Emergency Medical Services; Visit Provider Internal Medicine
PROC: 0JB90ZZ Excision of Buttock Subcutaneous Tissue and Fascia, Open Approach (ICD-10-PCS; principal; 2022-03-04 11:30)
PROC: 0UDB7ZX Extraction of Endometrium, Via Natural or Artificial Opening, Diagnostic (ICD-10-PCS; principal; 2022-03-12 13:15)
DX: M62.84 Sarcopenia (principal); J96.02 Acute respiratory failure with hypercapnia; L89.313 Pressure ulcer of right buttock, stage 3; L89.303 Pressure ulcer of unspecified buttock, stage 3; I48.92 Unspecified atrial flutter; E44.1 Mild protein-calorie malnutrition; Z68.43 Body mass index [BMI] 50.0-59.9, adult; I47.1 Supraventricular tachycardia; I89.0 Lymphedema, not elsewhere classified; R45.84 Anhedonia; R31.9 Hematuria, unspecified; N93.9 Abnormal uterine and vaginal bleeding, unspecified; G47.33 Obstructive sleep apnea (adult) (pediatric); I87.2 Venous insufficiency (chronic) (peripheral); F43.20 Adjustment disorder, unspecified; R19.7 Diarrhea, unspecified; E07.81 Sick-euthyroid syndrome; D50.0 Iron deficiency anemia secondary to blood loss (chronic); Z59.89 Other problems related to housing and economic circumstances; W06.XXXA Fall from bed, initial encounter; R32 Unspecified urinary incontinence; Y92.032 Bedroom in apartment as the place of occurrence of the external cause; L30.9 Dermatitis, unspecified; E66.01 Morbid (severe) obesity due to excess calories; L89.322 Pressure ulcer of left buttock, stage 2; I95.9 Hypotension, unspecified; Z91.81 History of falling; N95.0 Postmenopausal bleeding; N32.89 Other specified disorders of bladder; D25.9 Leiomyoma of uterus, unspecified; E88.09 Other disorders of plasma-protein metabolism, not elsewhere classified; I51.7 Cardiomegaly; N93.8 Other specified abnormal uterine and vaginal bleeding
CPT/HCPCS: 00400; 00940; 36415; 36600; 76775; 76856; 80048; 80053; 80061; 80069; 80076; 80162; 81001; 81003; 81015; 82040; 82330; 82550; 82728; 82803; 82977; 83036; 83540; 83550; 83735; 83880; 84100; 84436; 84443; 84480; 84484; 84550; 85018; 85025; 85027; 85045; 85610; 86140; 87040; 87086; 87493; 87624; 87635; 88175; 88305; 88341; 88342; 93005; 93306; 94660; 94761; 97110; 97162; 97166; 97530; 97535; 99100; 99285; A9270; J0153; J1170; J2543; J2704; J3490; J7050; J7120

== ENCOUNTER 2022-04-28 09:23 | Inpatient (IN) | payer BC, MEDICAID, MEDICARE, SELFPAY ==
--- NOTE | 2022-04-28 10:09 | PC.NURSE ---
Admit: Resident was admitted from med/surg via wheelchair and 2 staff. Was transfered to bathroom using assist of 2 and ez-stand. Was admitted with DX of weakness
[2022-04-28 10:29] VITALS: BP 150/74; PULSE 67; RESP 18; TEMP 36.6; O2SAT 67; O2SAT 96
[2022-04-28 10:33] VITALS: BP 150/74; PULSE 67; RESP 18; TEMP 36.6; O2SAT 96
--- NOTE | 2022-04-28 11:44 | PC.NURSE ---
Order: Okay to use adriel wraps to LE's for lymphedema, On-AM, Off-HS.
--- NOTE | 2022-04-28 12:56 | PC.NURSE ---
Status: Resident ordered a cheeseburger for lunch
--- NOTE | 2022-04-28 14:41 | PC.NURSE ---
Addendum entered by Danni Sands RN 04/28/22 15:30: Resident will receive PT/OT 3x per week. Original Note: MEDICARE REP. ADMISSION: Resident admitted to LTCC from [facility] today with primary diagnosis of generalized weakness, atrial flutter with RVR, KEVEN w/bipap, pressure ulcer stage 3 to right buttock, and vaginal bleeding. Qualifying hospital stay was 03/02/22-04/28/22. Today will be the first day of coverage. Resident notified of coverage due to intermediate and therapy needs. Resident will receive wound care, daily vital signs, pain medication, and monitoring as well as PT/OT 5x/week until resident meets goals.
--- NOTE | 2022-04-28 15:11 | NUTR.NU ---
Addendum entered and electronically signed by Essence Brian RD 04/29/22 08:48: Patient also reports she typically does not eat breakfast due to no/low appetite in the morning, typically only consumes 2 meals/day. Original Note: RDN visited with resident regarding diet order. Resident is known to RDN from Hospital stay from 03/02/22 to 04/27/22. Resident's most recent diet in the hospital was Diabetic 1200 kcal, per resident's preference. Resident discharged from Hospital to [facility] on Diabetic 1500 kcal diet. RDN visited with resident whom stated she would like to stay on a Diabetic 1500 kcal diet. She also requested meal monitoring so she stays on track with her weight loss. Her ultimate goal is to return home, which is an assisted living. RDN explained meal options to resident. RDN informed [employer] and [employer] of diet order and resident's desire for meal monitoring. 1500 kcal diet is more appropriate for meeting resident's adjusted weight BEE needs, per hospital nutrition assessments. RDN recommends 1-2 lbs weight loss per week for safe, gradual weight loss. Will follow-up with full assessment at later date. RDN will continue to monitor and follow-up prn.
[2022-04-28 17:34] LABS: SARS PCR* Negative SARS-CoV-2 (Negative)
[2022-04-28] MEDS: METOPROLOL TARTRATE 100 MG TABLET PO (19:53)
[2022-04-28] MEDS: POTASSIUM CHLORIDE 10 MEQ CAPSULE ER 20 MEQ PO (19:53)
[2022-04-28] MEDS: NYSTATIN POWDER 1 APPLIC TOPICAL (19:53)
[2022-04-28] MEDS: MEDROXYPROGESTERONE 5 MG TABLET 20 MG PO (19:57)
[2022-04-28] MEDS: CHOLESTYRAMINE POWDER 4 GM PO (19:58)
[2022-04-28] MEDS: LACTOBACILLUS ACIDOPHILUS 1 TABLET 1 TAB PO (19:58)
[2022-04-28] MEDS: APIXABAN 5 MG TABLET PO (20:51)
[2022-04-28] MEDS: MELATONIN 3 MG TABLET PO (21:31)
[2022-04-28 22:31] VITALS: BP 128/74; PULSE 68; RESP 16; TEMP 36.5; O2SAT 97
--- NOTE | 2022-04-28 22:37 | PC.NURSE ---
Resident requested B/L upper bed rails to be in upright position at [facility], for assist in positioning and adjusting bed. SEPTIC TANK SERVICER notified and will complete formal assessment and administer pamphlet to resident.
--- NOTE | 2022-04-28 22:38 | PC.NURSE ---
Skin Assessment: Resident has stage 2 PU, [id number] on right glute. Cleansed and clean mepilex applied. Resident has 5cm slit on lower medial glute cleft, and 3cm slit on upper medial glute cleft. Resident has 1.5cm slit on right vulva. Scant discharge from all wounds on glute. Unable to assess discharge from vulva, as resident is experiencing vaginal spotting, unable to determine if vulva wound is also draining.
--- NOTE | 2022-04-28 22:43 | PC.NURSE ---
Covid HOME ASSESSMENT NURSE swab obtained and sent to lab. Results: negative.
[2022-04-28 23:00] VITALS: TEMP 36.7; O2SAT 98
[2022-04-29] VITALS (8 sets, daily range): BP systolic 124–130; BP diastolic 74–76; PULSE 67–72; RESP 16–18; TEMP 20–36.9; O2SAT 94–100
--- NOTE | 2022-04-29 06:42 | PC.NURSE ---
Admission status: Vital signs WNL. Has denied any pain through the night. Refused all repositioning during the night. Refused removal of Coban wraps on BLE.
[2022-04-29] MEDS: APIXABAN 5 MG TABLET PO ×2 (08:49→20:45)
[2022-04-29] MEDS: FUROSEMIDE 40 MG TABLET PO (08:49)
[2022-04-29] MEDS: FERROUS SULFATE 325 MG TABLET PO (08:50)
[2022-04-29] MEDS: LOPERAMIDE HCL 2 MG CAPSULE PO (08:50)
[2022-04-29] MEDS: SPIRONOLACTONE 25 MG TABLET PO (08:51)
[2022-04-29] MEDS: MEDROXYPROGESTERONE 5 MG TABLET 20 MG PO ×2 (08:52→16:19)
[2022-04-29] MEDS: METOPROLOL TARTRATE 100 MG TABLET PO ×2 (08:53→16:19)
[2022-04-29] MEDS: SERTRALINE 50 MG TABLET PO (08:54)
[2022-04-29] MEDS: POTASSIUM CHLORIDE 10 MEQ CAPSULE ER 20 MEQ PO ×2 (08:54→16:19)
[2022-04-29] MEDS: LACTOBACILLUS ACIDOPHILUS 1 TABLET 1 TAB PO ×3 (08:55→17:31)
[2022-04-29] MEDS: CHOLESTYRAMINE POWDER 4 GM PO ×2 (08:56→17:31)
[2022-04-29] MEDS: DIGOXIN 250 MCG TABLET PO (09:00)
--- NOTE | 2022-04-29 11:07 | PC.NURSE ---
Medicare Charting: Patient vitals T: 98.1 degrees BP:124/76 R:17 breaths/ minute 02: 94% on room air P: 67 bpm. No c/o's of chest pain or pressure in chest this shift so far. Denied pain , rated pain as a 0 on a scale of 0-10. Transfers with assist of two using EZ Stand. Applied adriel wraps to lower legs to lower extremities bilaterally. Dressing intact to Rt buttocks. Noted Skin moist to lower abdominal folds, area cleansed, gently dried and applied Intera dry b/n skin.
[2022-04-29] MEDS: NYSTATIN POWDER 1 APPLIC TOPICAL ×2 (11:31→20:45)
--- NOTE | 2022-04-29 14:30 | PC.NURSE ---
Side rail Assessment/Providers Orders/Informed Consent: Completed side rail utilization assessment, RBVO both bed rails up to always promote independence/positioning. Requested by resident. DX: obesity per Yari Rendon NP. Bed rail informed consent form signed and filed. FDA side rail pamphlet given to resident at this time. Intervention in place/Care Plan and Care Sheets updated.
--- NOTE | 2022-04-29 14:35 | PC.NURSE ---
Consent for use of psychotropic medication therapy signed by resident for use of Zoloft 50mg daily. Dx adjustment disorder to improve functionality and reduce adverse behaviors. Reviewed side effects. Proposed course: prolong treatment.
[2022-04-29] MEDS: MELATONIN 3 MG TABLET PO (21:26)
--- NOTE | 2022-04-29 22:41 | PC.NURSE ---
Status: Resident transfers poorly with medistand and Ax2. International Accounting Manager was in bathroom changing mepilex to coccyx and observed NARs transferring. Resident appeared to be in pain and grimacing. Stating, Devyn sanchez please. Asked if she was having pain however, stated, no.
[2022-04-30] MEDS: FERROUS SULFATE 325 MG TABLET PO (07:43)
[2022-04-30] MEDS: CHOLESTYRAMINE POWDER 4 GM PO ×2 (07:43→17:21)
[2022-04-30] MEDS: LACTOBACILLUS ACIDOPHILUS 1 TABLET 1 TAB PO ×3 (07:44→16:41)
[2022-04-30] MEDS: METOPROLOL TARTRATE 100 MG TABLET PO ×2 (07:44→16:41)
[2022-04-30] MEDS: MEDROXYPROGESTERONE 5 MG TABLET 20 MG PO ×2 (07:44→16:41)
[2022-04-30] MEDS: LOPERAMIDE HCL 2 MG CAPSULE PO (07:44)
[2022-04-30] MEDS: POTASSIUM CHLORIDE 10 MEQ CAPSULE ER 20 MEQ PO ×2 (07:44→16:41)
[2022-04-30] MEDS: FUROSEMIDE 40 MG TABLET PO (07:44)
[2022-04-30] MEDS: SERTRALINE 50 MG TABLET PO (07:45)
[2022-04-30] MEDS: SPIRONOLACTONE 25 MG TABLET PO (07:45)
[2022-04-30] MEDS: APIXABAN 5 MG TABLET PO ×2 (08:05→20:19)
[2022-04-30 09:22] VITALS: PULSE 71
[2022-04-30] MEDS: DIGOXIN 250 MCG TABLET PO (09:22)
[2022-04-30 10:10] LABS: SARS PCR* Negative SARS-CoV-2 (Negative)
--- NOTE | 2022-04-30 10:27 | PC.NURSE ---
Covid TONGUE AND GROOVE MACHINE OPERATOR swab obtained and sent to lab. Waiting for Results.
--- NOTE | 2022-04-30 11:08 | PC.NURSE ---
Medicare Charting:? Patient vitals Stable. No c/o's of chest pain or pressure in chest this shift so far. GIORGIO reported that patient appears to be in minor pain, grimacing when transferring with medistand assist of two and small bleeding with toileting. Patent states no when ask for pain. Refused to take off adriel wraps at HS from lower extremities. Dressing intact to Rt buttocks. Noted Skin moist to lower abdominal folds, area cleansed, gently dried and applied Interadry b/n skin to observe moist. Will continues to monitor.
[2022-04-30 13:26] VITALS: TEMP 36.4; O2SAT 97
[2022-04-30 15:00] VITALS: TEMP 36.6; O2SAT 97
--- NOTE | 2022-04-30 15:00 | PC.NURSE ---
WOUND ASSESSMENT: CLAIM SPECIALIST and writer technical publications assessed residents wounds to buttocks. Areas healed. Tx no longer needed. Resident to continue with air mattress use.
[2022-04-30] MEDS: NYSTATIN POWDER 1 APPLIC TOPICAL (20:19)
--- NOTE | 2022-04-30 20:46 | PC.NURSE ---
NIGHT ROUTINE: Resident states she would like to not be woken up at night. She will use her call light if she needs to use the bathroom, be changed, or repositioned. Care plan updated. Staff updated.
[2022-04-30] MEDS: MELATONIN 3 MG TABLET PO (22:26)
[2022-04-30 23:00] VITALS: TEMP 36.8; O2SAT 94
--- NOTE | 2022-05-01 04:08 | PC.NURSE ---
WEEKLY CHARTING - WEEK 4: Vital signs reviewed - no concerns. Admission care plan reviewed with no change at this time. No documented behaviors since admission. Sleeps well at night. Receives sertraline 50mg daily and PRN melatonin with no noted adverse effects. Able to communicate needs. No hearing or visual deficit. Cognitively intact. All medications administered by licensed nurse.
[2022-05-01 08:32] VITALS: PULSE 74
[2022-05-01] MEDS: SPIRONOLACTONE 25 MG TABLET PO (08:32)
[2022-05-01] MEDS: FUROSEMIDE 40 MG TABLET PO (08:32)
[2022-05-01] MEDS: SERTRALINE 50 MG TABLET PO (08:32)
[2022-05-01] MEDS: LOPERAMIDE HCL 2 MG CAPSULE PO (08:32)
[2022-05-01] MEDS: LACTOBACILLUS ACIDOPHILUS 1 TABLET 1 TAB PO ×3 (08:32→17:15)
[2022-05-01] MEDS: CHOLESTYRAMINE POWDER 4 GM PO ×2 (08:32→17:15)
[2022-05-01] MEDS: FERROUS SULFATE 325 MG TABLET PO (08:32)
[2022-05-01] MEDS: METOPROLOL TARTRATE 100 MG TABLET PO ×2 (08:32→16:10)
[2022-05-01] MEDS: POTASSIUM CHLORIDE 10 MEQ CAPSULE ER 20 MEQ PO ×2 (08:32→16:10)
[2022-05-01] MEDS: MEDROXYPROGESTERONE 5 MG TABLET 20 MG PO ×2 (08:32→16:10)
[2022-05-01] MEDS: DIGOXIN 250 MCG TABLET PO (08:32)
[2022-05-01] MEDS: APIXABAN 5 MG TABLET PO ×2 (08:34→21:14)
[2022-05-01] MEDS: NYSTATIN POWDER 1 APPLIC TOPICAL ×2 (08:34→21:14)
--- NOTE | 2022-05-01 10:52 | PC.NURSE ---
Medicare: continues with PT as ordered, no verbal or nonverbal s/s of pain this shift. T98.7, O2 95% on room air, P74
[2022-05-01 10:54] VITALS: TEMP 37.1; O2SAT 74
[2022-05-01 15:00] VITALS: TEMP 37.1; O2SAT 100
--- NOTE | 2022-05-01 19:42 | PC.NURSE ---
IDT: Discussed resident wants to return home or to an assisted living. Making progress with standing and will continue to work with PT/OT with the goal to discharge to an assisted living with a safe discharge plan.
[2022-05-01] MEDS: MELATONIN 3 MG TABLET PO (21:27)
[2022-05-01 23:00] VITALS: TEMP 36.4; O2SAT 97
[2022-05-02] MEDS: CHOLESTYRAMINE POWDER 4 GM PO ×2 (09:01→17:55)
[2022-05-02] MEDS: DIGOXIN 250 MCG TABLET PO (09:01)
[2022-05-02] MEDS: FUROSEMIDE 40 MG TABLET PO (09:01)
[2022-05-02] MEDS: FERROUS SULFATE 325 MG TABLET PO (09:01)
[2022-05-02] MEDS: POTASSIUM CHLORIDE 10 MEQ CAPSULE ER 20 MEQ PO ×2 (09:02→16:32)
[2022-05-02] MEDS: MEDROXYPROGESTERONE 5 MG TABLET 20 MG PO ×2 (09:02→16:32)
[2022-05-02] MEDS: METOPROLOL TARTRATE 100 MG TABLET PO ×2 (09:02→16:32)
[2022-05-02] MEDS: LOPERAMIDE HCL 2 MG CAPSULE PO (09:02)
[2022-05-02] MEDS: SPIRONOLACTONE 25 MG TABLET PO (09:02)
[2022-05-02] MEDS: LACTOBACILLUS ACIDOPHILUS 1 TABLET 1 TAB PO ×3 (09:02→17:55)
[2022-05-02] MEDS: SERTRALINE 50 MG TABLET PO (09:03)
[2022-05-02] MEDS: NYSTATIN POWDER 1 APPLIC TOPICAL (09:03)
[2022-05-02] MEDS: APIXABAN 5 MG TABLET PO ×2 (09:03→21:16)
[2022-05-02 11:08] LABS: SARS PCR* Negative SARS-CoV-2 (Negative)
[2022-05-02 13:14] VITALS: TEMP 36.2; O2SAT 94
--- NOTE | 2022-05-02 13:18 | PC.NURSE ---
Medicare: Resident had no verbal or nonverbal s/s of pain this shift, temp 97.2, P68, O2 94% on RA
[2022-05-02 15:00] VITALS: BP 134/70; PULSE 78; RESP 18; TEMP 37.1; O2SAT 100
[2022-05-02] MEDS: MELATONIN 3 MG TABLET PO (21:16)
[2022-05-02 23:00] VITALS: TEMP 36.3; O2SAT 95
[2022-05-03 07:00] VITALS: TEMP 36.6; O2SAT 94
[2022-05-03 08:37] VITALS: PULSE 78
[2022-05-03] MEDS: CHOLESTYRAMINE POWDER 4 GM PO ×2 (08:37→17:05)
[2022-05-03] MEDS: FERROUS SULFATE 325 MG TABLET PO (08:37)
[2022-05-03] MEDS: DIGOXIN 250 MCG TABLET PO (08:37)
[2022-05-03] MEDS: SERTRALINE 50 MG TABLET PO (08:38)
[2022-05-03] MEDS: FUROSEMIDE 40 MG TABLET PO (08:38)
[2022-05-03] MEDS: MEDROXYPROGESTERONE 5 MG TABLET 20 MG PO ×2 (08:38→15:45)
[2022-05-03] MEDS: LOPERAMIDE HCL 2 MG CAPSULE PO (08:38)
[2022-05-03] MEDS: METOPROLOL TARTRATE 100 MG TABLET PO ×2 (08:38→15:45)
[2022-05-03] MEDS: LACTOBACILLUS ACIDOPHILUS 1 TABLET 1 TAB PO ×3 (08:38→17:05)
[2022-05-03] MEDS: POTASSIUM CHLORIDE 10 MEQ CAPSULE ER 20 MEQ PO ×2 (08:38→15:45)
[2022-05-03] MEDS: APIXABAN 5 MG TABLET PO ×2 (08:38→21:30)
[2022-05-03] MEDS: SPIRONOLACTONE 25 MG TABLET PO (08:38)
[2022-05-03] MEDS: NYSTATIN POWDER 1 APPLIC TOPICAL ×2 (08:40→21:30)
--- NOTE | 2022-05-03 10:47 | PC.NURSE ---
Medicare: No chest pain this shift, no therapy, No verbal or nonverbal s/s of pain this shift, B/P 134/70, P78, T97.9, R18 O2 94% on room air
[2022-05-03 15:00] VITALS: TEMP 36.7; O2SAT 97
[2022-05-03] MEDS: MELATONIN 3 MG TABLET PO (21:30)
[2022-05-03 23:00] VITALS: TEMP 36.6; O2SAT 97
[2022-05-04 08:23] VITALS: PULSE 72
[2022-05-04] MEDS: CHOLESTYRAMINE POWDER 4 GM PO ×2 (08:23→17:13)
[2022-05-04] MEDS: DIGOXIN 250 MCG TABLET PO (08:23)
[2022-05-04] MEDS: FERROUS SULFATE 325 MG TABLET PO (08:23)
[2022-05-04] MEDS: FUROSEMIDE 40 MG TABLET PO (08:27)
[2022-05-04] MEDS: LOPERAMIDE HCL 2 MG CAPSULE PO (08:27)
[2022-05-04] MEDS: MEDROXYPROGESTERONE 5 MG TABLET 20 MG PO ×2 (08:27→15:28)
[2022-05-04] MEDS: METOPROLOL TARTRATE 100 MG TABLET PO ×2 (08:27→15:28)
[2022-05-04] MEDS: LACTOBACILLUS ACIDOPHILUS 1 TABLET 1 TAB PO ×3 (08:27→17:13)
[2022-05-04] MEDS: SERTRALINE 50 MG TABLET PO (08:27)
[2022-05-04] MEDS: POTASSIUM CHLORIDE 10 MEQ CAPSULE ER 20 MEQ PO ×2 (08:27→15:28)
[2022-05-04] MEDS: SPIRONOLACTONE 25 MG TABLET PO (08:27)
[2022-05-04] MEDS: NYSTATIN POWDER 1 APPLIC TOPICAL ×2 (08:32→20:36)
[2022-05-04] MEDS: APIXABAN 5 MG TABLET PO ×2 (08:32→20:36)
[2022-05-04 10:19] VITALS: TEMP 36.4; O2SAT 93
--- NOTE | 2022-05-04 10:21 | PC.NURSE ---
Medicare: Resident had no verbal or nonverbal s/s of pain this shift, temp 97.6, P72, O2 93% on RA
[2022-05-04 11:32] LABS: SARS PCR* Negative SARS-CoV-2 (Negative)
--- NOTE | 2022-05-04 15:00 | PC.NURSE ---
Addendum entered by Karen Amado RN 05/04/22 15:08: private pay will begin on 05/07/22 Original Note: NOMNC NOTE: Resident was admitted from [facility] with primary diagnosis weakness, obesity, pressure ulcer right buttock, lymphedema, unspecified arterial flutter. Resident on admission had OT orders. Resident did receive these skilled inpatient services. It was determined by IDT that therapies will end on 05/06/22. Explained to resident that the last day of coverage will be 05/06/22 and that private pay. Explained that if she disagrees with services that she has until noon tomorrow to call [facility] to appeal this decision. At this time resident states she is not going to appeal. Denial letter filed given to resident and a copy placed in chart. UR team updated. Resident used 9 days of insurance coverage.
[2022-05-04 15:02] VITALS: BMI 50.1
--- NOTE | 2022-05-04 19:52 | PC.NURSE ---
COVID OUTBREAK TESTING Resident gave verbal consent for outbreak COVID testing. Resident is currently asymptomatic.? Resident will be notified only if resident is positive.
[2022-05-04 21:35] VITALS: TEMP 36.3; O2SAT 96
[2022-05-04] MEDS: MELATONIN 3 MG TABLET PO (21:51)
[2022-05-04 23:00] VITALS: TEMP 36; O2SAT 98
[2022-05-05 07:00] VITALS: TEMP 36.6; O2SAT 98
[2022-05-05 07:26] LABS: Basophils Percent Auto 0.2 % (0.0-3.0); Eosinophils Percent Auto 5.9 % (0.0-7.0); Hematocrit 37.1 % (33.0-51.0); Hemoglobin* 11.5 gm/dL (12.0-16.0); Immature Granulocytes Pct Auto 0.2 %; Lymphocytes Percent Auto 33.2 % (20-44); Mean Corpuscular HGB Conc 31 gm/dL (32-36); Mean Corpuscular Hemoglobin 27 pg (26-34); Mean Corpuscular Volume 86 fL (80-100); Monocytes Percent Auto 11.9 % (0.0-11.0); Neutrophils Percent Auto 48.6 % (42.0-72.0); Platelet Count* 194 K/uL (140-440); RDW Coefficient of Variation % 14.3 % (11.5-15.5); Red Blood Count 4.34 m/uL (4.00-5.20); White Blood Count* 4.37 K/uL (4.50-11.00)
[2022-05-05 07:33] LABS: Slide Review Reflex No
[2022-05-05 07:51] LABS: Chloride* 108 mmol/L (96-114)
[2022-05-05 07:52] LABS: Potassium* 5.4 mmol/L (3.6-5.1); Sodium* 137 mmol/L (135-149)
[2022-05-05 07:54] LABS: Creatinine* 0.9 mg/dL (0.5-1.5); Est. Creatinine Clearance* 43.91; Estimated Glomerular Filt Rate 68 ml/min
[2022-05-05 07:55] LABS: Blood Urea Nitrogen* 12 mg/dL (7-30); Calcium* 9.3 mg/dL (8.4-10.6); Carbon Dioxide* 27 mmol/L (20-32); Glucose* 92 mg/dL (60-115)
[2022-05-05] MEDS: FERROUS SULFATE 325 MG TABLET PO (08:23)
[2022-05-05] MEDS: METOPROLOL TARTRATE 100 MG TABLET PO ×2 (08:24→16:29)
[2022-05-05] MEDS: LOPERAMIDE HCL 2 MG CAPSULE PO (08:24)
[2022-05-05] MEDS: FUROSEMIDE 40 MG TABLET PO (08:24)
[2022-05-05] MEDS: POTASSIUM CHLORIDE 10 MEQ CAPSULE ER 20 MEQ PO ×2 (08:24→16:30)
[2022-05-05] MEDS: SPIRONOLACTONE 25 MG TABLET PO (08:25)
[2022-05-05] MEDS: LACTOBACILLUS ACIDOPHILUS 1 TABLET 1 TAB PO ×3 (08:25→16:46)
[2022-05-05] MEDS: MEDROXYPROGESTERONE 5 MG TABLET 20 MG PO ×2 (08:25→16:30)
[2022-05-05] MEDS: SERTRALINE 50 MG TABLET PO (08:25)
[2022-05-05] MEDS: APIXABAN 5 MG TABLET PO ×2 (08:26→20:58)
[2022-05-05] MEDS: CHOLESTYRAMINE POWDER 4 GM PO ×2 (08:26→18:36)
[2022-05-05] MEDS: NYSTATIN POWDER 1 APPLIC TOPICAL (08:29)
[2022-05-05 08:57] VITALS: PULSE 74
[2022-05-05] MEDS: DIGOXIN 250 MCG TABLET PO (08:57)
--- NOTE | 2022-05-05 12:13 | PC.SOCIAL ---
Met with resident to discuss her need for clothes and to inquire if she wants to see the in-house therapist from [facility]. Resident is not interested in seeing a mental health therapist. Resident's friend brought clothes last evening. One bag was sent to be washed and the other bag is in her room and needs to be labeled. Staff is aware.
--- NOTE | 2022-05-05 13:55 | PC.NURSE ---
Medicare note: Resident has had no verbal or nonverbal complaints of pain noted or reported this shift. No bowel intervention needed as resident had BM this shift. VS: B/P 111/68, Apical pulse of 74 as resident has chronic A Fib, R 18, T 97.9, O2 sat 98% on RA. Lung sounds clear to all lobes bilaterally and resident has had no edema noted. No antibiotic therapy currently in place. Resident remains on therapy services goal is to return to home. No behavioral concerns or specific episodes of confusion have been noted or reported.
[2022-05-05 15:00] VITALS: TEMP 36.5; O2SAT 100
[2022-05-05] MEDS: MELATONIN 3 MG TABLET PO (21:50)
[2022-05-06 07:00] VITALS: TEMP 36.7; O2SAT 99
[2022-05-06] MEDS: CHOLESTYRAMINE POWDER 4 GM PO ×2 (08:48→17:23)
[2022-05-06] MEDS: LOPERAMIDE HCL 2 MG CAPSULE PO (08:49)
[2022-05-06] MEDS: METOPROLOL TARTRATE 100 MG TABLET PO ×2 (08:49→15:28)
[2022-05-06] MEDS: FUROSEMIDE 40 MG TABLET PO (08:49)
[2022-05-06] MEDS: FERROUS SULFATE 325 MG TABLET PO (08:49)
[2022-05-06] MEDS: SPIRONOLACTONE 25 MG TABLET PO (08:50)
[2022-05-06] MEDS: POTASSIUM CHLORIDE 10 MEQ CAPSULE ER 20 MEQ PO ×2 (08:50→15:28)
[2022-05-06] MEDS: MEDROXYPROGESTERONE 5 MG TABLET 20 MG PO ×2 (08:50→15:28)
[2022-05-06] MEDS: LACTOBACILLUS ACIDOPHILUS 1 TABLET 1 TAB PO ×3 (08:50→17:23)
[2022-05-06] MEDS: SERTRALINE 50 MG TABLET PO (08:51)
[2022-05-06] MEDS: APIXABAN 5 MG TABLET PO ×2 (08:51→20:52)
[2022-05-06 09:01] VITALS: PULSE 77
[2022-05-06] MEDS: DIGOXIN 250 MCG TABLET PO (09:01)
--- NOTE | 2022-05-06 10:52 | PC.NURSE ---
Medicare note: VS: B/P 99/67, P 77, R 16, T 98.1, O2 sat 99% on RA. Pulse noted to have regular rhythm upon assessment of apical pulse. Lung sounds noted to be clear to all lobes bilaterally and resident has no edema noted with MISAEL wraps in place. Resident has had no complaints of chest pain or pressure this shift. No antibiotic therapy currently in place. Goal remains for resident to return to independent living.
--- NOTE | 2022-05-06 13:30 | PC.NURSE ---
CARE CONFERENCE: Nursing, SW, and Therapy present. Resident present. Reviewed resident care, continues to utilize 1-2 staff with EZstand for all transfers. Resident wishes to increase her endurance and wants to nipping machine operator the EZstand for 5 minutes in the AM and 5 minutes in the PM--will update staff. Therapy agrees that this is a good plan. Per therapy, resident can and should propel herself in wheelchair independently. Residents last therapy day is today. Resident discusses that some staff are not knocking on her door before entering or closing the door behind themselves, which is upsetting her. Provided reassurance and will discuss with staff. Resident requests a COVID booster vaccine--will inform grounds caretaker. Discussed with resident why she is not taking off MISAEL wraps at night, resident states that this is because she has been told so many different things that she doesnt know if she should leave them on or take them off. Informed resident that she can have them put on in the morning and off in the evening, she is in agreement with this plan. Dietary is not present, but resident discussed that she would like to keep track of her meal intake, dietary is set to meet with resident tomorrow and will discuss how to monitor meal intakes. Resident is FULL code. Is considered a vulnerable adult due to need for assistance with ADLs. No falls since admission. Pressure wounds that were present on admission are now healed. Per SW, clothes were brought in for resident, DEMO COORDINATOR staff were asked to assist with labeling. MA application is pending, resident will likely stay [facility], though her ideal goal would be to discharge home to her apartment independently at [facility] [place].
--- NOTE | 2022-05-06 13:51 | PC.SOCIAL ---
Resident's initial care conference was held today. Resident is done with therapies but continues to do her exercises in her room and drain technician the EZ stand 1x a day. Resident would like to try standing 2x a day. Resident has been keeping her wraps on all the time. Resident educated on the recommendation to take off her wraps each evening. Resident is in agreement with this plan. Resident requesting to stand 2 x a day instead of one and leg wraps off each evening was passed on in report. Resident's mood remains stable no s/s of depression noted. Resident continues to prefer her room and was encouraged to leave her room. Clothes have been brought in for resident and were sent out to be washed.
[2022-05-06 15:00] VITALS: TEMP 36.2; O2SAT 99
[2022-05-06 16:46] VITALS: BMI 50.1
[2022-05-06] MEDS: MELATONIN 3 MG TABLET PO (20:52)
[2022-05-07 08:39] VITALS: PULSE 70
[2022-05-07] MEDS: FERROUS SULFATE 325 MG TABLET PO (08:39)
[2022-05-07] MEDS: CHOLESTYRAMINE POWDER 4 GM PO ×2 (08:39→17:11)
[2022-05-07] MEDS: DIGOXIN 250 MCG TABLET PO (08:39)
[2022-05-07] MEDS: LOPERAMIDE HCL 2 MG CAPSULE PO (08:50)
[2022-05-07] MEDS: FUROSEMIDE 40 MG TABLET PO (08:50)
[2022-05-07] MEDS: METOPROLOL TARTRATE 100 MG TABLET PO ×2 (08:51→15:36)
[2022-05-07] MEDS: LACTOBACILLUS ACIDOPHILUS 1 TABLET 1 TAB PO ×3 (08:51→17:11)
[2022-05-07] MEDS: POTASSIUM CHLORIDE 10 MEQ CAPSULE ER 20 MEQ PO ×2 (08:51→15:36)
[2022-05-07] MEDS: SPIRONOLACTONE 25 MG TABLET PO (08:51)
[2022-05-07] MEDS: MEDROXYPROGESTERONE 5 MG TABLET 20 MG PO ×2 (08:51→15:36)
[2022-05-07] MEDS: SERTRALINE 50 MG TABLET PO (08:51)
[2022-05-07] MEDS: APIXABAN 5 MG TABLET PO ×2 (08:54→20:59)
--- NOTE | 2022-05-07 09:59 | PC.SPIRITC ---
Emily expressed that she is coping with hospitalization and manager long term care care center by keeping her goals in mind along with holding on to past times she or family have gotten through difficult periods of life. Resident expressed hoping to get back to her baseline but knowing that nothing is guaranteed. I provided visit to process recent events along with connection and support.
[2022-05-07 10:42] VITALS: TEMP 36.7; O2SAT 97
--- NOTE | 2022-05-07 15:13 | NUTR.NU ---
Nutrition Follow-up: ANGELN visited with resident regarding questions that came up during her care conference recently. Resident is currently on a Diabetic 1500 kcal diet. She reports that she would like to stay on this diet because she is motivated to continue losing weight and to eventually go back home. Resident mentioned that she was interested in knowing the calories of the a la carte food items, which she orders from often. RDN explained to resident that she is not on a Diabetic 1500 kcal diet necessarily for the calorie limit, but she is on it for the consistent carbohydrate intake which is an effective diet for weight loss. A Diabetic 1500 kcal diet allows for up to 4 carbohydrate choices at each meal and 1 carbohydrate choice at a snack per day. Resident expressed her understanding and agreed that she did not want to monitor her calorie intake at this time, however she would like to continue on her current diet. ANGELN offered diet education to resident regarding meal planning, which resident accepted. RDN provided resident with MyPlatePlanner handout. RDN discussed with resident that she should try using the plate method for carbohydrate-controlled, balanced meals that include ? plate non-starchy vegetables, ? plate protein, and 3-4 servings of carbohydrates per meal (fruit, whole grains, legumes, milk, yogurt) and 0-1 per snack. Resident was receptive and reported that she would use this when she orders her meals in the future. Resident informed RDN that she received a meal recently that was lacking in a couple food items she had ordered for that particular meal. RDN informed Culinary Services staff, DON, and ADONs of this to ensure this does not happen again. Resident also expressed that she would like Dietitians to monitor what she is ordering for meals. RDN informed Culinary Services staff, DON, and ADONs of this and will put this in place as soon as possible. Resident seemed highly motivated to continue to lose weight and was very pleasant to talk with. RDN will continue to monitor closely, monitor weight, and follow-up prn.
[2022-05-07 16:01] VITALS: TEMP 36.6; O2SAT 98
--- NOTE | 2022-05-07 20:31 | PC.NURSE ---
Order: Decrease potassium chloride 20 meq BID to potassium chloride 20 meq daily per Perla Sanabria NP. Recheck labs on Thursday 05/11.
[2022-05-07] MEDS: MELATONIN 3 MG TABLET PO (21:00)
--- NOTE | 2022-05-08 01:54 | PC.NURSE ---
Weekly charting Week 1: Baseline care plan and temporary care plan reviewed, No changes made. Vital signs reviewed, some elevated BP noted. ADLs: Res needs extensive 1 assist of dressing and bathing. Prefer to have bed bath. Set up assist with grooming and oral hygiene. Res is on diabetic Regular diet, thin liquid. Eat independently after set up. No concern of swallowing and chewing. PAIN: Sometime Res complained of Left knee pain during transfer using medi stand. PRN acetaminophen 975 mg PRN utilized and effective.
--- NOTE | 2022-05-08 06:41 | PC.NURSE ---
Week #1-ADL's: Baseline and temporary care plan reviewed. No changes made and nothing added to temporary care plan. Resident needs one assist with dressing and bathing. Prefers bed bath. Is able to participate. Does oral cares & grooming after set up. Feed self after set up. Is 1500 calorie diet. No problems with chewing/swallowing reported. Vital signs reviewed, no concerns. Continue with weekly monitoring. Pain: Has an order for Tylenol 975mg Q8H PRN and hasn't been used yet. She is able to verbalize need for pain
[2022-05-08] MEDS: CHOLESTYRAMINE POWDER 4 GM PO ×2 (08:32→17:03)
[2022-05-08] MEDS: LOPERAMIDE HCL 2 MG CAPSULE PO (08:33)
[2022-05-08] MEDS: METOPROLOL TARTRATE 100 MG TABLET PO ×2 (08:33→16:17)
[2022-05-08] MEDS: FERROUS SULFATE 325 MG TABLET PO (08:33)
[2022-05-08] MEDS: FUROSEMIDE 40 MG TABLET PO (08:33)
[2022-05-08] MEDS: LACTOBACILLUS ACIDOPHILUS 1 TABLET 1 TAB PO ×3 (08:34→17:02)
[2022-05-08] MEDS: APIXABAN 5 MG TABLET PO ×2 (08:34→20:33)
[2022-05-08] MEDS: MEDROXYPROGESTERONE 5 MG TABLET 20 MG PO ×2 (08:34→16:17)
[2022-05-08] MEDS: SPIRONOLACTONE 25 MG TABLET PO (08:34)
[2022-05-08] MEDS: SERTRALINE 50 MG TABLET PO (08:34)
[2022-05-08] MEDS: POTASSIUM CHLORIDE 10 MEQ CAPSULE ER 20 MEQ PO (08:35)
[2022-05-08 08:40] VITALS: PULSE 70
[2022-05-08] MEDS: DIGOXIN 250 MCG TABLET PO (08:40)
--- NOTE | 2022-05-08 13:53 | NUTR.NU ---
Discussed with team at [facility] and spoke with resident. Resident will record her own meal intakes/food consumed for review by the dietitian. She was provided a pen and notebook. She reports that she likes this plan and feels that it will be the most accurate.
[2022-05-08 15:00] VITALS: TEMP 37; O2SAT 100
[2022-05-08] MEDS: MELATONIN 3 MG TABLET PO (21:41)
[2022-05-09] MEDS: FUROSEMIDE 40 MG TABLET PO (08:34)
[2022-05-09] MEDS: FERROUS SULFATE 325 MG TABLET PO (08:35)
[2022-05-09] MEDS: LOPERAMIDE HCL 2 MG CAPSULE PO (08:35)
[2022-05-09] MEDS: METOPROLOL TARTRATE 100 MG TABLET PO ×2 (08:35→17:43)
[2022-05-09] MEDS: POTASSIUM CHLORIDE 10 MEQ CAPSULE ER 20 MEQ PO (08:35)
[2022-05-09] MEDS: SPIRONOLACTONE 25 MG TABLET PO (08:37)
[2022-05-09] MEDS: LACTOBACILLUS ACIDOPHILUS 1 TABLET 1 TAB PO ×3 (08:37→19:56)
[2022-05-09] MEDS: SERTRALINE 50 MG TABLET PO (08:37)
[2022-05-09] MEDS: MEDROXYPROGESTERONE 5 MG TABLET 20 MG PO ×2 (08:37→17:44)
[2022-05-09 08:55] VITALS: PULSE 70
[2022-05-09] MEDS: DIGOXIN 250 MCG TABLET PO (08:55)
[2022-05-09] MEDS: CHOLESTYRAMINE POWDER 4 GM PO ×2 (08:55→19:57)
[2022-05-09] MEDS: APIXABAN 5 MG TABLET PO ×2 (09:38→20:09)
[2022-05-09 12:07] LABS: SARS PCR* Negative SARS-CoV-2 (Negative)
--- NOTE | 2022-05-09 13:12 | PC.NURSE ---
Admit Covid: day 5 swab test done and sent to lab.
[2022-05-09 15:00] VITALS: BP 131/70; PULSE 78; RESP 18; TEMP 37; O2SAT 100
--- NOTE | 2022-05-09 16:00 | PM.IMPN1 ---
Subjective Date Seen: 04/03/22 Interval history: Progress Note: A&P Assessment and plan (1) Weakness generalized: ?Problem details: ?- patient continues to make progress, requiring 2 person assist and EZ stand; requires TCU at this juncture but ultimate goal is to return to independent living -? PT and OT following, + fall risk ?- Will need bariatric equipment ?- TCU placement still pending ?Status:?Acute (2) Pressure ulcer of buttock: ?Problem details: ?- General surgery, I&D in OR 03/04. Dr. Rice will round 2x/week while patient is here ?- Zosyn initiated on admission, discontinued on 03/06 ?- Secondhand report is modest slow improvement ?Status:?Acute (3) Self neglect: ?Problem details: Certain level of poor judgment in regard to self cares and self awareness which allowed her to progress to her current state.? Did not think to call for help when she was on the floor for several days when she 1st presented. ?Status:?Acute (4) Lymphedema associated with obesity: ?Problem details: ?- Continue to work on compression and lymphedema pumps ?Status:?Acute (5) Diarrhea: ?Problem details: ?- not associated with abdominal pain or cramping ?- negative C diff, normal TSH ?- possibly iatrogenic (however, present prior to initiating Zoloft); not currently on antibiotics ?- has made diet changes, schedule imodium with hold parameters ?- given persistent symptoms, add cholestyramine 03/30 ?Status:?Acute (6) Adjustment disorder: ?Problem details: ?- started zoloft 25mg on 03/13, increased to 50mg 03/24. ?Status:?Acute (7) Acute respiratory failure with hypercapnia: ?Problem details: ?- Nocturnal, suggestive of obstructive sleep apnea. ?- Current BiPAP settings of 18 cm H20 iPap/10 cm H20 ePap, patient tolerates this well ?- Following gases intermittently ?Status:?Acute (8) Vaginal bleeding: ?Problem details: ?- EUA, EMB and Pap smear 03/12/2022.? Appreciate Gynecology support; please see final consult note from 03/19/2022.? Pap and pathology 03/19/2022 as inconclusive ?- 03/19: Dr. Wagner recommend starting Provera 10mg QD for endometrial protection, until she can safely pursue other surgical options (D&C/hysterectomy, etc) ?- Progesterone initiated 03/21/22 ?Status:?Acute (9) Incontinence associated dermatitis: ?Problem details: ?- continue williamson and prn loperamide for loose stools (c. diff negative), also working on diet changes to limit diarrhea ?- continue wound care as per surgery/Wound consult recommendations ?Status:?Acute Subjective Date Seen: 04/03/22 Interval history: Daily Progress Note - Hospital Medicine Day #: 32 CC: generalized weakness, morbid obesity, lymphedema, pressure ulcers, AFlutter OVERNIGHT UPDATES FROM STAFF & MED, LAB, IMAGING UPDATES Small a significant gains made in her mobility continue. She has been in the wheelchair in the tong with scooting a bit with her legs. unable to stand from the wheelchair. able to have 1-2 assist to easy stand. doing self cares at the sink. ? Patient now can become upright with the EZ stand.? She can pivot and sit on the bedside commode.? All other transfers have been by sling.? Patient feels her spirits are about the same as they have been.? Multi disciplinary team meeting: -nutrition has been on top of calorie counts, and limited healthy menu. Down 15.4 lbs since 03/25/22. -PT and OT rounding with bedside instruction sheets available for patients continued rehab - posting sheets for tips and times. No TV during this work. -strict daily weights. Be supine and without extra weight on the bed during waking. -DME request to our 3rd democrat vendor for lymphedema pumps (IN USE!), as well as a walking sling (ORDERED) -trial of Lasix and spironolactone to help alleviate some of her edema, POTASSIUM AND CREATINE ARE STABLE. ON REPLACEMENT. -started and titrated Zoloft (now 50mg) -wound care is progressing and now is only needed M.W.F and prn Objective: Vitals: see above Lungs: Clear. Cardiac: no harsh murmurs; irregular ? Disposition/Potential discharge - Needs SNF Total time is 35 minutes with greater than 50% spent in counseling and coordination of care. Exam Const: Vital Signs, click to edit/add: Vital Signs - 24 hr 05/09/22 08:55 Pulse Rate 70 Labs Labs: Laboratory Results - last 24 hr 05/09/22 10:30 SARS-CoV-2 (PCR) Negative SARS-CoV-2
[2022-05-09] MEDS: MELATONIN 3 MG TABLET PO (21:30)
[2022-05-10] MEDS: POTASSIUM CHLORIDE 10 MEQ CAPSULE ER 20 MEQ PO (08:23)
[2022-05-10] MEDS: LOPERAMIDE HCL 2 MG CAPSULE PO (08:23)
[2022-05-10] MEDS: CHOLESTYRAMINE POWDER 4 GM PO ×2 (08:23→17:17)
[2022-05-10] MEDS: METOPROLOL TARTRATE 100 MG TABLET PO ×2 (08:23→16:15)
[2022-05-10] MEDS: FERROUS SULFATE 325 MG TABLET PO (08:23)
[2022-05-10] MEDS: LACTOBACILLUS ACIDOPHILUS 1 TABLET 1 TAB PO ×3 (08:23→17:17)
[2022-05-10] MEDS: FUROSEMIDE 40 MG TABLET PO (08:23)
[2022-05-10] MEDS: MEDROXYPROGESTERONE 5 MG TABLET 20 MG PO ×2 (08:24→16:16)
[2022-05-10] MEDS: APIXABAN 5 MG TABLET PO ×2 (08:24→20:17)
[2022-05-10] MEDS: SERTRALINE 50 MG TABLET PO (08:24)
[2022-05-10] MEDS: SPIRONOLACTONE 25 MG TABLET PO (08:24)
[2022-05-10 08:40] VITALS: PULSE 76
[2022-05-10] MEDS: DIGOXIN 250 MCG TABLET PO (08:40)
[2022-05-10 15:00] VITALS: TEMP 36.6; O2SAT 100
[2022-05-10] MEDS: MELATONIN 3 MG TABLET PO (21:40)
[2022-05-11] MEDS: CHOLESTYRAMINE POWDER 4 GM PO ×2 (08:10→17:46)
[2022-05-11] MEDS: FERROUS SULFATE 325 MG TABLET PO (08:11)
[2022-05-11] MEDS: METOPROLOL TARTRATE 100 MG TABLET PO ×2 (08:12→16:08)
[2022-05-11] MEDS: POTASSIUM CHLORIDE 10 MEQ CAPSULE ER 20 MEQ PO (08:12)
[2022-05-11] MEDS: LOPERAMIDE HCL 2 MG CAPSULE PO (08:12)
[2022-05-11] MEDS: FUROSEMIDE 40 MG TABLET PO (08:12)
[2022-05-11] MEDS: LACTOBACILLUS ACIDOPHILUS 1 TABLET 1 TAB PO ×3 (08:13→17:46)
[2022-05-11] MEDS: MEDROXYPROGESTERONE 5 MG TABLET 20 MG PO ×2 (08:13→16:08)
[2022-05-11] MEDS: APIXABAN 5 MG TABLET PO ×2 (08:13→20:06)
[2022-05-11] MEDS: SERTRALINE 50 MG TABLET PO (08:13)
[2022-05-11] MEDS: SPIRONOLACTONE 25 MG TABLET PO (08:13)
[2022-05-11 08:21] VITALS: PULSE 88
[2022-05-11] MEDS: DIGOXIN 250 MCG TABLET PO (08:21)
[2022-05-11 10:19] LABS: Potassium* 5.1 mmol/L (3.6-5.1)
[2022-05-11 15:00] VITALS: TEMP 36.3; O2SAT 100
[2022-05-11] MEDS: MELATONIN 3 MG TABLET PO (22:10)
[2022-05-12 08:16] VITALS: PULSE 75
[2022-05-12] MEDS: METOPROLOL TARTRATE 100 MG TABLET PO ×2 (08:16→15:37)
[2022-05-12] MEDS: FUROSEMIDE 40 MG TABLET PO (08:16)
[2022-05-12] MEDS: LOPERAMIDE HCL 2 MG CAPSULE PO (08:16)
[2022-05-12] MEDS: FERROUS SULFATE 325 MG TABLET PO (08:16)
[2022-05-12] MEDS: POTASSIUM CHLORIDE 10 MEQ CAPSULE ER 20 MEQ PO (08:16)
[2022-05-12] MEDS: DIGOXIN 250 MCG TABLET PO (08:16)
[2022-05-12] MEDS: CHOLESTYRAMINE POWDER 4 GM PO ×2 (08:16→17:01)
[2022-05-12] MEDS: SERTRALINE 50 MG TABLET PO (08:17)
[2022-05-12] MEDS: SPIRONOLACTONE 25 MG TABLET PO (08:17)
[2022-05-12] MEDS: LACTOBACILLUS ACIDOPHILUS 1 TABLET 1 TAB PO ×3 (08:17→17:01)
[2022-05-12] MEDS: APIXABAN 5 MG TABLET PO ×2 (08:17→20:09)
[2022-05-12] MEDS: MEDROXYPROGESTERONE 5 MG TABLET 20 MG PO ×2 (08:17→15:38)
[2022-05-12 14:53] VITALS: TEMP 37; O2SAT 96
--- NOTE | 2022-05-12 15:00 | PC.NURSE ---
ADL CORRECTION: incorrect charting during LAURA period. BED MOBILITY: Staff interviewed, resident is able to assist with bed mobility though staff do provide some weight bearing support. 2 person extensive assist was required every time ? coded as such. TRANSFERS: Staff interviewed, resident is extensive assist of 2 with EZstand for all transfers. Coded as such. WALK IN ROOM & CORRIDOR: Staff interviewed, resident is NOT able to ambulate at all. Activity did not occur at all during the LAURA period. LOC ON UNIT: Staff interviewed, resident is able to self-propel to locations in her room, staff do still provide weight bearing support about once or twice per shift at times. Coded as such. LOC OFF UNIT: Staff interviewed, resident is able to self-propel to locations outside of her room, though staff do still provide weight bearing support at least once per shift. Coded as such. DRESSING: Staff interviewed, resident is highly involved in dressing, though staff continue to provide guided maneuvering/non weight bearing assistance. Coded as such. EATING: Staff interviewed, resident is independent at all meals with set up assistance. Coded as such. TOILETING: Staff interviewed, resident is able to help with pericares after toileting, and transfers with extensive assist of 2 with EZstand all times. Coded as such. PERSONAL HYGIENE: Staff interviewed, resident is independent with hygiene with set up assistance. Coded as such. BATHING: Resident requires physical assistance with part of the bathing activity by one staff. Resident does require 2 staff assist with EZstand for transfer to tub chair. Resident is able to assist with washing her face, hair, and upper body once in the tub. Coded as such.
--- NOTE | 2022-05-12 15:35 | PC.NURSE ---
Offered resident Influenza and Pneumonia vaccine. At this time not up to date. Declined. Did state she would like her COVID booster. Email sent to [facility] for supply.
[2022-05-12] MEDS: MELATONIN 3 MG TABLET PO (21:44)
--- NOTE | 2022-05-13 07:56 | PC.PHA1 ---
TERMITE HELPER PHARMACIST'S MEDICATION REVIEW: MEDICATION MONITORING:Sertraline 50 mg daily IRREGULARITY OR COMMENTS:Patient started sertraline in past quarter during long hospital stay. Other medications reviewed and all are indicated for patient's continued rehab with goal of her returning to independent living. At this time a GDR for sertraline clinically contraindicated. No antibiotics or benzodiazepines prescribed. SUGGESTED COURSE OF ACTION TAKEN:No medication changes recommended at this time
[2022-05-13] MEDS: CHOLESTYRAMINE POWDER 4 GM PO ×2 (08:50→17:26)
[2022-05-13] MEDS: METOPROLOL TARTRATE 100 MG TABLET PO ×2 (08:50→15:34)
[2022-05-13] MEDS: FUROSEMIDE 40 MG TABLET PO (08:50)
[2022-05-13] MEDS: FERROUS SULFATE 325 MG TABLET PO (08:50)
[2022-05-13] MEDS: LOPERAMIDE HCL 2 MG CAPSULE PO (08:50)
[2022-05-13] MEDS: POTASSIUM CHLORIDE 10 MEQ CAPSULE ER 20 MEQ PO (08:50)
[2022-05-13] MEDS: LACTOBACILLUS ACIDOPHILUS 1 TABLET 1 TAB PO ×3 (08:51→17:26)
[2022-05-13] MEDS: MEDROXYPROGESTERONE 5 MG TABLET 20 MG PO ×2 (08:51→15:34)
[2022-05-13 08:52] VITALS: PULSE 73
[2022-05-13] MEDS: DIGOXIN 250 MCG TABLET PO (08:52)
[2022-05-13] MEDS: SPIRONOLACTONE 25 MG TABLET PO (08:52)
[2022-05-13] MEDS: SERTRALINE 50 MG TABLET PO (08:52)
[2022-05-13] MEDS: APIXABAN 5 MG TABLET PO ×2 (08:52→20:56)
[2022-05-13 10:13] VITALS: BMI 50.1
[2022-05-13 15:00] VITALS: TEMP 36.7; O2SAT 99
[2022-05-13] MEDS: MELATONIN 3 MG TABLET PO (20:56)
[2022-05-14] MEDS: FERROUS SULFATE 325 MG TABLET PO (08:43)
[2022-05-14] MEDS: CHOLESTYRAMINE POWDER 4 GM PO ×2 (08:43→17:29)
[2022-05-14] MEDS: METOPROLOL TARTRATE 100 MG TABLET PO ×2 (08:44→16:52)
[2022-05-14] MEDS: POTASSIUM CHLORIDE 10 MEQ CAPSULE ER 20 MEQ PO (08:44)
[2022-05-14] MEDS: LOPERAMIDE HCL 2 MG CAPSULE PO (08:44)
[2022-05-14] MEDS: FUROSEMIDE 40 MG TABLET PO (08:44)
[2022-05-14] MEDS: MEDROXYPROGESTERONE 5 MG TABLET 20 MG PO ×2 (08:44→16:52)
[2022-05-14] MEDS: APIXABAN 5 MG TABLET PO ×2 (08:45→22:00)
[2022-05-14] MEDS: SERTRALINE 50 MG TABLET PO (08:45)
[2022-05-14] MEDS: LACTOBACILLUS ACIDOPHILUS 1 TABLET 1 TAB PO ×3 (08:45→17:13)
[2022-05-14] MEDS: SPIRONOLACTONE 25 MG TABLET PO (08:45)
[2022-05-14 08:48] VITALS: PULSE 80
[2022-05-14] MEDS: DIGOXIN 250 MCG TABLET PO (08:48)
--- NOTE | 2022-05-14 12:00 | PC.NURSE ---
Lab: Potassium result reviewed by RN IMAGING. No new order.
--- NOTE | 2022-05-14 13:02 | PC.NURSE ---
Order: Julieta BAEZ here. D/C Melatonin 3-6mg HS PRN changed to Melatonin 6mg at HS per resident request.
[2022-05-14 15:00] VITALS: TEMP 37.1; O2SAT 98
--- NOTE | 2022-05-14 15:11 | PC.NURSE ---
ADL CORRECTION: incorrect charting during LAURA period. BED MOBILITY: Staff interviewed, resident is able to assist with bed mobility though staff do provide some weight bearing support. 2 person extensive assist was required every time ? coded as such. TRANSFERS: Staff interviewed, resident is extensive assist of 2 with EZstand for all transfers. Coded as such. WALK IN ROOM & CORRIDOR: Staff interviewed, resident is NOT able to ambulate at all. Activity did not occur at all during the LAURA period. LOC ON UNIT: Staff interviewed, resident is able to self-propel to locations in her room, staff do still provide weight bearing support about once or twice per shift at times. Coded as such. LOC OFF UNIT: Staff interviewed, resident refused to leave room, did not occur. Coded as such. DRESSING: Staff interviewed, resident required weight bearing assist with lower body dressing. Coded as such. EATING: Staff interviewed, resident is independent at all meals with set up assistance. Coded as such. TOILETING: Staff interviewed, resident is able to help with pericares after toileting, and transfers with extensive assist of 2 with EZstand all times. Coded as such. PERSONAL HYGIENE: Staff interviewed, resident is independent with hygiene with set up assistance. Coded as such.
[2022-05-14] MEDS: MELATONIN 3 MG TABLET 6 MG PO (22:01)
--- NOTE | 2022-05-15 01:09 | PC.NURSE ---
weekly charting Week 2: Vitals reviewed. No concern. Baseline and temporary care plan reviewed. No changes made. Nothing added to temporary care plan. Use two 1/4 side rails on bed, up at all times for bed mobility. Res needs medi stand with 2 staff assist for transfer. No fall since admission. Fall Prevention: call light within reach, Bed in low position brakes locked, Wheelchair at bed side locked.
[2022-05-15 07:00] VITALS: TEMP 36.8; O2SAT 98
--- NOTE | 2022-05-15 07:29 | PC.NURSE ---
Week #2 - Mobility: Baseline and temporary care plan reviewed. No changes made, nothing added to temporary care plan. resident is non ambulatory. Transfers using a medi stand with 2 assists. Will call if wants repositioning. No alarms. Bilateral 1/4 bed rails up at all times to assist with bed mobility. Vital signs reviewed, no concerns. Fall: No falls since admission. Is a low fall risk according to assessment done on 05/14/22. Fall interventions: Call light within reach, bed in low position brakes locked, w/c at bedside locked.
[2022-05-15] MEDS: CHOLESTYRAMINE POWDER 4 GM PO ×2 (08:37→17:36)
[2022-05-15] MEDS: APIXABAN 5 MG TABLET PO ×2 (08:37→20:49)
[2022-05-15] MEDS: MEDROXYPROGESTERONE 5 MG TABLET 20 MG PO ×2 (08:37→16:15)
[2022-05-15] MEDS: DIGOXIN 250 MCG TABLET PO (08:37)
[2022-05-15] MEDS: FERROUS SULFATE 325 MG TABLET PO (08:37)
[2022-05-15] MEDS: POTASSIUM CHLORIDE 10 MEQ CAPSULE ER 20 MEQ PO (08:37)
[2022-05-15] MEDS: LOPERAMIDE HCL 2 MG CAPSULE PO (08:37)
[2022-05-15] MEDS: LACTOBACILLUS ACIDOPHILUS 1 TABLET 1 TAB PO ×3 (08:37→17:36)
[2022-05-15] MEDS: METOPROLOL TARTRATE 100 MG TABLET PO ×2 (08:37→16:14)
[2022-05-15] MEDS: FUROSEMIDE 40 MG TABLET PO (08:37)
[2022-05-15] MEDS: SERTRALINE 50 MG TABLET PO (08:37)
[2022-05-15] MEDS: SPIRONOLACTONE 25 MG TABLET PO (08:37)
--- NOTE | 2022-05-15 09:45 | PC.SOCIAL ---
Received an e-mail from [employer] informing that resident wanted to see social work regarding a letter she received about selecting a health care plan. Met with resident in resident's room and reviewed letter. Letter was from [facility] and was asking resident to select a health care plan for her medical assistance. There are 3 options for health care plans. Resident will review the 3 health care plans this weekend and would like, JOHN Flood, to stop back on Wednesday if resident has any questions and to assist in completing the sheet that needs to be returned. This worker informed this worker will send an e-mail to Laverne and inform her. Social work will follow up as necessary.
--- NOTE | 2022-05-15 11:28 | REH.PT ---
checked in on pt to see if she is ready to try sit>stand transfers at hand rail. Pt reports she isn't quite ready yet. Currently standing in EZ stand for 7 mins 1 x per day. Performs HEP 2x/day ind. Feels like she is getting stronger but not ready for PT at this time. Will check in on pt again in 2 weeks.
--- NOTE | 2022-05-15 11:42 | NUTR.NU ---
Nutrition Follow-up: RDN visited with resident for a follow-up. She reports meals have been good. She did mention that sometimes her meals have been lukewarm. RDN will pass this information along to staff at [facility] and inform Culinary Services. Resident has been enjoying writing down what she eats at each meal daily. She provided RDN with sheet she wrote her meals on. RDN assessed and resident is ordering appropriate foods for meals. No nutrition interventions/changes at this time. RDN will continue to monitor weight monthly and follow-up prn.
[2022-05-15 15:00] VITALS: TEMP 36.8; O2SAT 100
[2022-05-15] MEDS: MELATONIN 3 MG TABLET 6 MG PO (20:49)
[2022-05-16 00:32] VITALS: TEMP 36.6; O2SAT 98
[2022-05-16 08:38] VITALS: PULSE 76
[2022-05-16] MEDS: DIGOXIN 250 MCG TABLET PO (08:38)
[2022-05-16] MEDS: FERROUS SULFATE 325 MG TABLET PO (08:38)
[2022-05-16] MEDS: CHOLESTYRAMINE POWDER 4 GM PO ×2 (08:38→17:27)
[2022-05-16] MEDS: METOPROLOL TARTRATE 100 MG TABLET PO ×2 (08:39→16:05)
[2022-05-16] MEDS: POTASSIUM CHLORIDE 10 MEQ CAPSULE ER 20 MEQ PO (08:39)
[2022-05-16] MEDS: LACTOBACILLUS ACIDOPHILUS 1 TABLET 1 TAB PO ×3 (08:39→17:27)
[2022-05-16] MEDS: FUROSEMIDE 40 MG TABLET PO (08:39)
[2022-05-16] MEDS: LOPERAMIDE HCL 2 MG CAPSULE PO (08:39)
[2022-05-16] MEDS: APIXABAN 5 MG TABLET PO ×2 (08:40→20:32)
[2022-05-16] MEDS: SERTRALINE 50 MG TABLET PO (08:40)
[2022-05-16] MEDS: MEDROXYPROGESTERONE 5 MG TABLET 20 MG PO ×2 (08:40→16:05)
[2022-05-16] MEDS: SPIRONOLACTONE 25 MG TABLET PO (08:40)
[2022-05-16 11:01] VITALS: TEMP 36.5; O2SAT 98
[2022-05-16 15:00] VITALS: BP 121/78; PULSE 67; RESP 18; TEMP 36.7; O2SAT 98; BMI 45.3
[2022-05-16] MEDS: MELATONIN 3 MG TABLET 6 MG PO (20:32)
[2022-05-17 00:15] VITALS: TEMP 36.6; O2SAT 98
[2022-05-17 08:34] VITALS: PULSE 72
[2022-05-17] MEDS: CHOLESTYRAMINE POWDER 4 GM PO ×2 (08:34→17:39)
[2022-05-17] MEDS: SERTRALINE 50 MG TABLET PO (08:34)
[2022-05-17] MEDS: MEDROXYPROGESTERONE 5 MG TABLET 20 MG PO ×2 (08:34→15:49)
[2022-05-17] MEDS: DIGOXIN 250 MCG TABLET PO (08:34)
[2022-05-17] MEDS: SPIRONOLACTONE 25 MG TABLET PO (08:34)
[2022-05-17] MEDS: FUROSEMIDE 40 MG TABLET PO (08:34)
[2022-05-17] MEDS: POTASSIUM CHLORIDE 10 MEQ CAPSULE ER 20 MEQ PO (08:34)
[2022-05-17] MEDS: APIXABAN 5 MG TABLET PO ×2 (08:34→20:39)
[2022-05-17] MEDS: FERROUS SULFATE 325 MG TABLET PO (08:34)
[2022-05-17] MEDS: LOPERAMIDE HCL 2 MG CAPSULE PO (08:34)
[2022-05-17] MEDS: METOPROLOL TARTRATE 100 MG TABLET PO ×2 (08:34→15:49)
[2022-05-17] MEDS: LACTOBACILLUS ACIDOPHILUS 1 TABLET 1 TAB PO ×3 (08:34→17:39)
[2022-05-17 11:03] VITALS: TEMP 36.7; O2SAT 98
[2022-05-17 15:00] VITALS: TEMP 36.8; O2SAT 100
[2022-05-17] MEDS: MELATONIN 3 MG TABLET 6 MG PO (20:39)
[2022-05-17 23:57] VITALS: TEMP 36.6; O2SAT 98
[2022-05-18 08:41] VITALS: PULSE 74
[2022-05-18] MEDS: FERROUS SULFATE 325 MG TABLET PO (08:41)
[2022-05-18] MEDS: DIGOXIN 250 MCG TABLET PO (08:41)
[2022-05-18] MEDS: CHOLESTYRAMINE POWDER 4 GM PO ×2 (08:41→17:16)
[2022-05-18] MEDS: FUROSEMIDE 40 MG TABLET PO (08:45)
[2022-05-18] MEDS: METOPROLOL TARTRATE 100 MG TABLET PO ×2 (08:46→15:32)
[2022-05-18] MEDS: LOPERAMIDE HCL 2 MG CAPSULE PO (08:46)
[2022-05-18] MEDS: MEDROXYPROGESTERONE 5 MG TABLET 20 MG PO ×2 (08:47→15:32)
[2022-05-18] MEDS: LACTOBACILLUS ACIDOPHILUS 1 TABLET 1 TAB PO ×3 (08:47→17:16)
[2022-05-18] MEDS: SPIRONOLACTONE 25 MG TABLET PO (08:47)
[2022-05-18] MEDS: POTASSIUM CHLORIDE 10 MEQ CAPSULE ER 20 MEQ PO (08:47)
[2022-05-18] MEDS: SERTRALINE 50 MG TABLET PO (08:48)
[2022-05-18] MEDS: APIXABAN 5 MG TABLET PO ×2 (09:48→20:08)
--- NOTE | 2022-05-18 10:20 | PC.NURSE ---
COVID OUTBREAK TESTING Resident gave verbal consent for outbreak COVID testing. Resident is currently asymptomatic.? Resident/family will be notified only if resident is positive.
[2022-05-18 10:24] VITALS: TEMP 36.6; O2SAT 92
[2022-05-18 12:32] LABS: SARS PCR* Negative SARS-CoV-2 (Negative)
--- NOTE | 2022-05-18 12:42 | PC.NURSE ---
CARE CONFERENCE: Resident declined another care conference following her sig change coming off therapy. She has no concerns at this time.
[2022-05-18 16:39] VITALS: TEMP 36.4; O2SAT 99
[2022-05-18] MEDS: MELATONIN 3 MG TABLET 6 MG PO (20:08)
[2022-05-19 00:08] VITALS: TEMP 36.8; O2SAT 95
[2022-05-19 08:34] VITALS: PULSE 78
[2022-05-19] MEDS: DIGOXIN 250 MCG TABLET PO (08:34)
[2022-05-19] MEDS: CHOLESTYRAMINE POWDER 4 GM PO ×2 (08:34→17:39)
[2022-05-19] MEDS: FERROUS SULFATE 325 MG TABLET PO (08:34)
[2022-05-19] MEDS: LOPERAMIDE HCL 2 MG CAPSULE PO (08:35)
[2022-05-19] MEDS: METOPROLOL TARTRATE 100 MG TABLET PO ×2 (08:35→16:52)
[2022-05-19] MEDS: SERTRALINE 50 MG TABLET PO (08:35)
[2022-05-19] MEDS: MEDROXYPROGESTERONE 5 MG TABLET 20 MG PO ×2 (08:35→16:52)
[2022-05-19] MEDS: LACTOBACILLUS ACIDOPHILUS 1 TABLET 1 TAB PO ×3 (08:35→16:52)
[2022-05-19] MEDS: APIXABAN 5 MG TABLET PO ×2 (08:35→20:00)
[2022-05-19] MEDS: POTASSIUM CHLORIDE 10 MEQ CAPSULE ER 20 MEQ PO (08:35)
[2022-05-19] MEDS: FUROSEMIDE 40 MG TABLET PO (08:35)
[2022-05-19] MEDS: SPIRONOLACTONE 25 MG TABLET PO (08:35)
[2022-05-19 10:19] VITALS: TEMP 36.4; O2SAT 97
[2022-05-19 11:58] VITALS: BMI 42.9
[2022-05-19 15:00] VITALS: TEMP 36.6; O2SAT 97
[2022-05-19] MEDS: MELATONIN 3 MG TABLET 6 MG PO (20:00)
[2022-05-19 23:00] VITALS: TEMP 36.7; O2SAT 96
[2022-05-20] MEDS: LACTOBACILLUS ACIDOPHILUS 1 TABLET 1 TAB PO ×3 (08:35→17:31)
[2022-05-20] MEDS: SERTRALINE 50 MG TABLET PO (08:35)
[2022-05-20] MEDS: SPIRONOLACTONE 25 MG TABLET PO (08:35)
[2022-05-20] MEDS: FUROSEMIDE 40 MG TABLET PO (08:35)
[2022-05-20] MEDS: CHOLESTYRAMINE POWDER 4 GM PO ×2 (08:35→17:32)
[2022-05-20] MEDS: APIXABAN 5 MG TABLET PO ×2 (08:35→21:11)
[2022-05-20] MEDS: POTASSIUM CHLORIDE 10 MEQ CAPSULE ER 20 MEQ PO (08:35)
[2022-05-20] MEDS: FERROUS SULFATE 325 MG TABLET PO (08:35)
[2022-05-20] MEDS: MEDROXYPROGESTERONE 5 MG TABLET 20 MG PO ×2 (08:35→15:23)
[2022-05-20] MEDS: LOPERAMIDE HCL 2 MG CAPSULE PO (08:35)
[2022-05-20] MEDS: METOPROLOL TARTRATE 100 MG TABLET PO ×2 (08:35→15:23)
[2022-05-20 09:29] VITALS: PULSE 82
[2022-05-20] MEDS: DIGOXIN 250 MCG TABLET PO (09:29)
[2022-05-20 10:12] VITALS: TEMP 36.3; O2SAT 100
[2022-05-20 10:33] LABS: Potassium* 4.4 mmol/L (3.6-5.1)
--- NOTE | 2022-05-20 12:42 | PC.NURSE ---
DRUPAL PHP DEVELOPER updated on weights and if further labs are needed to review weight loss. Will await response.
--- NOTE | 2022-05-20 14:11 | PC.NURSE ---
COVID 5th dose: ARPU Bivalent Lot # [id number] Exp 09/28/22 0.3ml given at this time in left deltoid. No adverse effects noted.
--- NOTE | 2022-05-20 14:52 | PC.NURSE ---
PLASTIC ROLLER ORDER: Yari Rendon PLASTIC ROLLER. Check BMP, CBC, LFTs due to weight loss.
[2022-05-20 15:00] VITALS: TEMP 36.6; O2SAT 100
[2022-05-20 15:10] LABS: Basophils Absolute Auto 0.01 K/uL (0.00-0.30); Basophils Percent Auto 0.2 % (0.0-3.0); Eosinophils Absolute Auto 0.13 K/uL (0.00-0.50); Eosinophils Percent Auto 2.6 % (0.0-7.0); Hematocrit 40.9 % (33.0-51.0); Hemoglobin* 12.6 gm/dL (12.0-16.0); Immature Granulocytes Abs Auto 0.04 K/uL (0.00-0.30); Immature Granulocytes Pct Auto 0.8 %; Lymphocytes Absolute Auto 1.68 K/uL (0.90-2.90); Lymphocytes Percent Auto 33.2 % (20-44); Mean Corpuscular HGB Conc 31 gm/dL (32-36); Mean Corpuscular Hemoglobin 26 pg (26-34); Mean Corpuscular Volume 85 fL (80-100); Monocytes Percent Auto 9.9 % (0.0-11.0); Neutrophils Percent Auto 53.3 % (42.0-72.0); Platelet Count* 204 K/uL (140-440); RDW Coefficient of Variation % 13.9 % (11.5-15.5); White Blood Count* 5.06 K/uL (4.50-11.00)
[2022-05-20 15:28] LABS: Slide Review Reflex No
[2022-05-20 15:31] LABS: Albumin* 3.6 g/dL (3.3-5.0); Chloride* 110 mmol/L (96-114); Sodium* 139 mmol/L (135-149)
[2022-05-20 15:32] LABS: Potassium* 4.9 mmol/L (3.6-5.1)
[2022-05-20 15:34] LABS: Alkaline Phosphatase* 55 U/L (40-150); Aspartate Amino Transferase* 41 U/L (12-35); Bilirubin Direct* 0.2 mg/dL (0.0-0.5); Bilirubin Total* 0.6 mg/dL (0.1-1.5); Blood Urea Nitrogen* 18 mg/dL (7-30); Carbon Dioxide* 28 mmol/L (20-32); Creatinine* 1.2 mg/dL (0.5-1.5); Est. Creatinine Clearance* 36.59; Estimated Glomerular Filt Rate 48 ml/min; Glucose* 112 mg/dL (60-115); Total Protein* 7.3 g/dL (6.0-8.3)
[2022-05-20 15:35] LABS: Alanine Aminotransferase* 54 U/L (4-35); Calcium* 9.5 mg/dL (8.4-10.6)
--- NOTE | 2022-05-20 16:20 | PC.SPIRITC ---
Emily talked at length about her various life experiences and reflected on her medical journey that lead to stay at the [facility]. I see progress now and that is encouraging. Emily talked about wanting to reinvest in her recovery after a time of rest. Resident does not have any particular uatsdin affiliation, but her spirituality that centers around not giving up has helped her cope. Music is also a major support for her. I provided extended visit for connection, support, and relayed to Emily that [facility] Department has the capability to help provide preferred music for spiritual support.
[2022-05-20] MEDS: MELATONIN 3 MG TABLET 6 MG PO (21:11)
--- NOTE | 2022-05-20 21:40 | PC.NURSE ---
Status: Resident has nose pad strip in place on bipap this evening to help with discomfort. New filter placed in machine this evening. No concerns this shift regarding dry mouth.
[2022-05-20 23:00] VITALS: TEMP 36.4; O2SAT 96
[2022-05-21 08:50] VITALS: PULSE 74
[2022-05-21] MEDS: LOPERAMIDE HCL 2 MG CAPSULE PO (08:50)
[2022-05-21] MEDS: SPIRONOLACTONE 25 MG TABLET PO (08:50)
[2022-05-21] MEDS: SERTRALINE 50 MG TABLET PO (08:50)
[2022-05-21] MEDS: DIGOXIN 250 MCG TABLET PO (08:50)
[2022-05-21] MEDS: CHOLESTYRAMINE POWDER 4 GM PO ×2 (08:50→17:13)
[2022-05-21] MEDS: METOPROLOL TARTRATE 100 MG TABLET PO ×2 (08:50→16:08)
[2022-05-21] MEDS: LACTOBACILLUS ACIDOPHILUS 1 TABLET 1 TAB PO ×3 (08:50→17:13)
[2022-05-21] MEDS: FERROUS SULFATE 325 MG TABLET PO (08:50)
[2022-05-21] MEDS: MEDROXYPROGESTERONE 5 MG TABLET 20 MG PO ×2 (08:50→16:08)
[2022-05-21] MEDS: FUROSEMIDE 40 MG TABLET PO (08:50)
[2022-05-21] MEDS: POTASSIUM CHLORIDE 10 MEQ CAPSULE ER 20 MEQ PO (08:50)
[2022-05-21] MEDS: APIXABAN 5 MG TABLET PO ×2 (09:30→20:42)
--- NOTE | 2022-05-21 09:49 | PC.NURSE ---
Resident stated that she would like to clean her BIPAP equipment herself in the am. Staff to assist as needed. Intervention set up.
[2022-05-21 10:10] VITALS: TEMP 36.4; O2SAT 98
--- NOTE | 2022-05-21 12:42 | PC.NURSE ---
Status/Order: VOCATIONAL AUTO BODY INSTRUCTOR here. Labs, weights reviewed. Order: Decrease Lasix 40mg to 20mg daily, Potassium 20meq t0 10meq daily, BMP on 06/02/22, Gyne & collision repairer referral to discuss liver friendly diet.
--- NOTE | 2022-05-21 14:43 | NUTR.NU ---
ELIAN with MD referral for liver-friendly/high protein diet. ANGELN visited with resident whom reported meals have been going well. She reports some meals are still lukewarm and not hot; RDN reported this to DYLAN. She continues to only order 2 meals daily; lunch and supper. She reports she does not like to eat in the morning due to a low appetite and not feeling hungry at that time of day. RDN discussed including more protein in her diet, and possibly including a high protein snack once daily. Resident agreed to adding more protein in her diet, and asked for double portions of protein at meals. She also would like to include a high-protein snack to be offered at breakfast, however she reports that she would plan on eating it later in the morning. She reports that it would ok for the snack to sit on her bedside table until she is ready to eat it. ANGELN will provide a high-protein snack list to resident and staff for their use and reference when offering snack. ANGELN did offer high protein supplements to resident, however she has a history of trying supplements during her most recent hospital stay that caused her to experience diarrhea. Resident does not want to try supplements at this time. Resident has had significant weight loss since admit to [facility]: 04/30/22: 292 lbs 05/06/22: 291 lbs 05/16/22: 264 lbs 05/19/22: 250 lbs Weight loss of 42 lbs within 30 days is significant weight loss of 14.3%. Resident's recent meal intakes have been mainly 100% for both meals daily (lunch and supper). Adding a snack once daily provides an additional ~100-200 kcals and ~5-15 grams of protein per daily to help increase kcal and protein intake. Resident continues to write down what she consumes at meals for RDN to assess; she continues to order and consumes appropriate foods. Due to significant weight loss and need for increased protein, RDN recommended to resident that her diet change from Diabetic, 1500 kcals to Regular diet to help meet her estimated needs, including protein, and to slow weight loss. Resident is in agreement with this and mentioned that she wants to continue to lose weight, however she does not want to lose weight this rapidly. RDN continues to recommend 1-3 lbs weight loss per week for safe, gradual weight loss. This is equal to about 0.5-1% loss of body weight per week. RDN wrote diet order request in SPOT SPRAYER book; diet change to Regular with Double Portions of Protein in comment section. RDN informed CLARITY DEVELOPER of this. RDN will continue to monitor and follow-up prn.
[2022-05-21 15:00] VITALS: TEMP 37.1; O2SAT 100
[2022-05-21] MEDS: MELATONIN 3 MG TABLET 6 MG PO (20:42)
[2022-05-21 22:03] VITALS: BMI 47.6
--- NOTE | 2022-05-21 22:05 | PC.NURSE ---
Mechanical lift scale was looked by maintenance. Resident requested her weight to be taken to compare weights from previous week. Weight is 277.5lbs. Resident states she believes this is a more accurate weight than what has previously been recorded.
[2022-05-21 23:00] VITALS: TEMP 36.6; O2SAT 95
--- NOTE | 2022-05-22 02:42 | PC.NURSE ---
WEEKLY CHARTING - WEEK 3: Vital signs reviewed - no concerns. Temporary and admission care plan reviewed - no changes. No documented skin integrity concerns at this time. Lotion is applied to feet BID with cares. Lymphedema present to BLE - wraps applied/removed daily. Continent of bowel and incontinent of bladder. Wears XXL brief. Declines to have brief checked during the night. Will call for assistance PRN. Assist of 2 for toileting needs including check/change brief, sepideh-care, clothing adjustment.
[2022-05-22 08:27] VITALS: PULSE 78
[2022-05-22] MEDS: CHOLESTYRAMINE POWDER 4 GM PO ×2 (08:27→17:28)
[2022-05-22] MEDS: FERROUS SULFATE 325 MG TABLET PO (08:27)
[2022-05-22] MEDS: DIGOXIN 250 MCG TABLET PO (08:27)
[2022-05-22] MEDS: POTASSIUM CHLORIDE 10 MEQ CAPSULE ER PO (08:28)
[2022-05-22] MEDS: METOPROLOL TARTRATE 100 MG TABLET PO ×2 (08:28→16:13)
[2022-05-22] MEDS: SERTRALINE 50 MG TABLET PO (08:28)
[2022-05-22] MEDS: MEDROXYPROGESTERONE 5 MG TABLET 20 MG PO ×2 (08:28→16:13)
[2022-05-22] MEDS: LOPERAMIDE HCL 2 MG CAPSULE PO (08:28)
[2022-05-22] MEDS: FUROSEMIDE 40 MG TABLET 20 MG PO (08:28)
[2022-05-22] MEDS: APIXABAN 5 MG TABLET PO ×2 (08:28→20:42)
[2022-05-22] MEDS: LACTOBACILLUS ACIDOPHILUS 1 TABLET 1 TAB PO ×3 (08:28→17:28)
[2022-05-22] MEDS: SPIRONOLACTONE 25 MG TABLET PO (08:28)
[2022-05-22 10:23] VITALS: TEMP 36.6; O2SAT 100
--- NOTE | 2022-05-22 11:10 | PC.NURSE ---
Diet: Changed to regular double protein portions per resident request & RDN's recommendations. RECYCLING SPECIALIST approved.
--- NOTE | 2022-05-22 13:59 | PC.NURSE ---
Week #3 - Toileting: Baseline and temporary care plan reviewed. Temporary care plan updated, diet changed to regular, double protein portions. Resident is continent of bowel and bladder. Staff toilet per her request. Transfers with a medi stand, 2 assists.Wears XXLg briefs. Pads, sepideh cares, clothing managed by staff. Vital signs reviewed, no concerns. Skin: Skin intact.Has BLE lymphedema , adriel wraps on-AM off-PM , lotion BID to feet. Skin is checked during cares and on bath day.
[2022-05-22 15:00] VITALS: TEMP 36.9; O2SAT 98
[2022-05-22] MEDS: MELATONIN 3 MG TABLET 6 MG PO (20:42)
[2022-05-22 23:00] VITALS: TEMP 36.4; O2SAT 96
[2022-05-23 07:00] VITALS: TEMP 36.8; O2SAT 100
[2022-05-23] MEDS: CHOLESTYRAMINE POWDER 4 GM PO ×2 (08:41→17:23)
[2022-05-23] MEDS: METOPROLOL TARTRATE 100 MG TABLET PO ×2 (08:42→16:20)
[2022-05-23] MEDS: LOPERAMIDE HCL 2 MG CAPSULE PO (08:42)
[2022-05-23] MEDS: FUROSEMIDE 40 MG TABLET 20 MG PO (08:42)
[2022-05-23] MEDS: FERROUS SULFATE 325 MG TABLET PO (08:42)
[2022-05-23] MEDS: LACTOBACILLUS ACIDOPHILUS 1 TABLET 1 TAB PO ×3 (08:43→17:23)
[2022-05-23] MEDS: POTASSIUM CHLORIDE 10 MEQ CAPSULE ER PO (08:43)
[2022-05-23] MEDS: MEDROXYPROGESTERONE 5 MG TABLET 20 MG PO ×2 (08:43→16:20)
[2022-05-23] MEDS: APIXABAN 5 MG TABLET PO ×2 (08:44→20:21)
[2022-05-23] MEDS: SERTRALINE 50 MG TABLET PO (08:44)
[2022-05-23] MEDS: SPIRONOLACTONE 25 MG TABLET PO (08:44)
[2022-05-23 08:50] VITALS: PULSE 69
[2022-05-23] MEDS: DIGOXIN 250 MCG TABLET PO (08:50)
[2022-05-23 15:00] VITALS: BP 115/63; PULSE 67; RESP 18; TEMP 36.8; O2SAT 100; O2SAT 98
[2022-05-23] MEDS: MELATONIN 3 MG TABLET 6 MG PO (19:31)
--- NOTE | 2022-05-23 22:00 | PC.NURSE ---
Bath weight: Assigned GIORGIO forgot to weigh resident. Will be done tomorrow.
[2022-05-23 23:00] VITALS: TEMP 36.7; O2SAT 96
[2022-05-24 07:00] VITALS: TEMP 37; O2SAT 95
[2022-05-24] MEDS: CHOLESTYRAMINE POWDER 4 GM PO ×2 (08:27→17:21)
[2022-05-24] MEDS: FERROUS SULFATE 325 MG TABLET PO (08:27)
[2022-05-24] MEDS: FUROSEMIDE 40 MG TABLET 20 MG PO (08:28)
[2022-05-24] MEDS: LOPERAMIDE HCL 2 MG CAPSULE PO (08:28)
[2022-05-24] MEDS: POTASSIUM CHLORIDE 10 MEQ CAPSULE ER PO (08:28)
[2022-05-24] MEDS: METOPROLOL TARTRATE 100 MG TABLET PO ×2 (08:28→16:29)
[2022-05-24] MEDS: SPIRONOLACTONE 25 MG TABLET PO (08:29)
[2022-05-24] MEDS: SERTRALINE 50 MG TABLET PO (08:29)
[2022-05-24] MEDS: APIXABAN 5 MG TABLET PO ×2 (08:29→20:25)
[2022-05-24] MEDS: LACTOBACILLUS ACIDOPHILUS 1 TABLET 1 TAB PO ×3 (08:29→17:21)
[2022-05-24] MEDS: MEDROXYPROGESTERONE 5 MG TABLET 20 MG PO ×2 (08:29→16:28)
[2022-05-24 08:34] VITALS: PULSE 72
[2022-05-24] MEDS: DIGOXIN 250 MCG TABLET PO (08:34)
[2022-05-24 15:00] VITALS: TEMP 36.8; O2SAT 100
[2022-05-24] MEDS: MELATONIN 3 MG TABLET 6 MG PO (20:25)
[2022-05-24 23:00] VITALS: TEMP 37.1; O2SAT 94
[2022-05-25 08:06] VITALS: PULSE 76
[2022-05-25] MEDS: FERROUS SULFATE 325 MG TABLET PO (08:06)
[2022-05-25] MEDS: DIGOXIN 250 MCG TABLET PO (08:06)
[2022-05-25] MEDS: CHOLESTYRAMINE POWDER 4 GM PO ×2 (08:06→17:22)
[2022-05-25] MEDS: FUROSEMIDE 40 MG TABLET 20 MG PO (08:07)
[2022-05-25] MEDS: APIXABAN 5 MG TABLET PO ×2 (08:07→20:51)
[2022-05-25] MEDS: METOPROLOL TARTRATE 100 MG TABLET PO ×2 (08:07→16:17)
[2022-05-25] MEDS: MEDROXYPROGESTERONE 5 MG TABLET 20 MG PO ×2 (08:07→16:17)
[2022-05-25] MEDS: SERTRALINE 50 MG TABLET PO (08:07)
[2022-05-25] MEDS: LACTOBACILLUS ACIDOPHILUS 1 TABLET 1 TAB PO ×3 (08:07→17:21)
[2022-05-25] MEDS: SPIRONOLACTONE 25 MG TABLET PO (08:07)
[2022-05-25] MEDS: LOPERAMIDE HCL 2 MG CAPSULE PO (08:07)
[2022-05-25] MEDS: POTASSIUM CHLORIDE 10 MEQ CAPSULE ER PO (08:07)
[2022-05-25 10:36] VITALS: TEMP 36.6; O2SAT 100
--- NOTE | 2022-05-25 12:18 | PC.NURSE ---
COVID OUTBREAK TESTING Resident gave verbal consent for outbreak COVID testing. Resident is currently asymptomatic.? Resident/family will be notified only if resident is positive.
[2022-05-25 12:40] LABS: SARS PCR* Negative SARS-CoV-2 (Negative)
[2022-05-25 15:51] VITALS: TEMP 36.4; O2SAT 99
[2022-05-25] MEDS: MELATONIN 3 MG TABLET 6 MG PO (20:51)
[2022-05-25 23:00] VITALS: TEMP 36.3; O2SAT 97
[2022-05-26 08:29] VITALS: PULSE 82
[2022-05-26] MEDS: CHOLESTYRAMINE POWDER 4 GM PO ×2 (08:29→17:01)
[2022-05-26] MEDS: SERTRALINE 50 MG TABLET PO (08:29)
[2022-05-26] MEDS: FUROSEMIDE 40 MG TABLET 20 MG PO (08:29)
[2022-05-26] MEDS: POTASSIUM CHLORIDE 10 MEQ CAPSULE ER PO (08:29)
[2022-05-26] MEDS: LOPERAMIDE HCL 2 MG CAPSULE PO (08:29)
[2022-05-26] MEDS: MEDROXYPROGESTERONE 5 MG TABLET 20 MG PO ×2 (08:29→15:47)
[2022-05-26] MEDS: DIGOXIN 250 MCG TABLET PO (08:29)
[2022-05-26] MEDS: SPIRONOLACTONE 25 MG TABLET PO (08:29)
[2022-05-26] MEDS: APIXABAN 5 MG TABLET PO ×2 (08:29→20:09)
[2022-05-26] MEDS: METOPROLOL TARTRATE 100 MG TABLET PO ×2 (08:29→15:47)
[2022-05-26] MEDS: FERROUS SULFATE 325 MG TABLET PO (08:29)
[2022-05-26] MEDS: LACTOBACILLUS ACIDOPHILUS 1 TABLET 1 TAB PO ×3 (08:29→16:59)
[2022-05-26 10:04] VITALS: TEMP 36.6; O2SAT 99
--- NOTE | 2022-05-26 13:29 | PC.NURSE ---
Gynecology F/U call placed to Dr. Wagner's office to discuss further follow up as resident is still having substantial vaginal bleeding, liver enzymes are elevated and resident has had a more drastic weight loss in past [address] Wagner is out today and will return call tomorrow.
--- NOTE | 2022-05-26 14:13 | PC.NURSE ---
Spoke to Dr. Wagner's nurse about residents bleeding symptoms for an update for Dr. Wagner. Dark red-brown blood is saturating the incontinent product each morning. Slow dripping of bright red blood appears during the day with toileting. When wiped a small amount of red blood is noted on tissue paper.
[2022-05-26 16:18] VITALS: TEMP 36.7; O2SAT 100
[2022-05-26] MEDS: MELATONIN 3 MG TABLET 6 MG PO (20:09)
[2022-05-26 23:00] VITALS: TEMP 36.6; O2SAT 96
[2022-05-27] MEDS: CHOLESTYRAMINE POWDER 4 GM PO ×2 (08:15→17:16)
[2022-05-27 08:16] VITALS: PULSE 74
[2022-05-27] MEDS: LACTOBACILLUS ACIDOPHILUS 1 TABLET 1 TAB PO ×3 (08:16→17:16)
[2022-05-27] MEDS: DIGOXIN 250 MCG TABLET PO (08:16)
[2022-05-27] MEDS: LOPERAMIDE HCL 2 MG CAPSULE PO (08:16)
[2022-05-27] MEDS: FERROUS SULFATE 325 MG TABLET PO (08:16)
[2022-05-27] MEDS: METOPROLOL TARTRATE 100 MG TABLET PO ×2 (08:16→16:09)
[2022-05-27] MEDS: POTASSIUM CHLORIDE 10 MEQ CAPSULE ER PO (08:16)
[2022-05-27] MEDS: APIXABAN 5 MG TABLET PO ×2 (08:16→20:55)
[2022-05-27] MEDS: MEDROXYPROGESTERONE 5 MG TABLET 20 MG PO ×2 (08:16→16:09)
[2022-05-27] MEDS: SERTRALINE 50 MG TABLET PO (08:16)
[2022-05-27] MEDS: SPIRONOLACTONE 25 MG TABLET PO (08:16)
[2022-05-27] MEDS: FUROSEMIDE 40 MG TABLET 20 MG PO (08:16)
[2022-05-27 09:00] VITALS: TEMP 36.7; O2SAT 98
[2022-05-27 15:00] VITALS: TEMP 36.4; O2SAT 99
--- NOTE | 2022-05-27 15:00 | PC.NURSE ---
SASHA Rendon advised that Dr. Martinez address the needs for oncology appointment at next visit. Dr. Martinez to be updated with recent conversations surrounding gynecology and oncology at 05/30/22 visit.
--- NOTE | 2022-05-27 15:21 | PC.NURSE ---
Spoke to Dr. Wagner nurse. Dr. Wagner would like the patient to follow up with oncology at this time. Client Experience Manager reached out to SASHA Rendon with update. Client Experience Manager will now reach out to oncology department.
--- NOTE | 2022-05-27 15:23 | PC.NURSE ---
Reached out to [facility] oncology department. They would like primary provider to work up the patient before they will schedule an appointment for her. One recommendation being CT scan of chest, abdomen and pelvis. MANUAL EQUIPMENT MECHANIC updated and will review plan of care at this time.
[2022-05-27] MEDS: MELATONIN 3 MG TABLET 6 MG PO (20:55)
[2022-05-27 23:00] VITALS: TEMP 36.5; O2SAT 98
[2022-05-28 08:16] VITALS: BMI 47.0
[2022-05-28 08:47] VITALS: PULSE 76
[2022-05-28] MEDS: POTASSIUM CHLORIDE 10 MEQ CAPSULE ER PO (08:47)
[2022-05-28] MEDS: CHOLESTYRAMINE POWDER 4 GM PO ×2 (08:47→17:20)
[2022-05-28] MEDS: METOPROLOL TARTRATE 100 MG TABLET PO ×2 (08:47→16:04)
[2022-05-28] MEDS: LACTOBACILLUS ACIDOPHILUS 1 TABLET 1 TAB PO ×3 (08:47→16:43)
[2022-05-28] MEDS: DIGOXIN 250 MCG TABLET PO (08:47)
[2022-05-28] MEDS: FUROSEMIDE 40 MG TABLET 20 MG PO (08:47)
[2022-05-28] MEDS: LOPERAMIDE HCL 2 MG CAPSULE PO (08:47)
[2022-05-28] MEDS: FERROUS SULFATE 325 MG TABLET PO (08:47)
[2022-05-28] MEDS: MEDROXYPROGESTERONE 5 MG TABLET 20 MG PO ×2 (08:47→16:04)
[2022-05-28] MEDS: APIXABAN 5 MG TABLET PO ×2 (08:48→20:34)
[2022-05-28] MEDS: SPIRONOLACTONE 25 MG TABLET PO (08:48)
[2022-05-28] MEDS: SERTRALINE 50 MG TABLET PO (08:48)
[2022-05-28 08:54] VITALS: TEMP 36.6; O2SAT 99
--- NOTE | 2022-05-28 11:10 | PC.NURSE ---
Resident c/o mouth dryness. Tonya Amado was updated and she will f/u with N/P
[2022-05-28 15:00] VITALS: TEMP 36.9; O2SAT 100
--- NOTE | 2022-05-28 15:17 | PC.NURSE ---
Resident prefers to wear hospital gown all day. Will change x1 daily. Does not like to wear clothes from home at this time.
[2022-05-28] MEDS: MELATONIN 3 MG TABLET 6 MG PO (20:34)
[2022-05-28 23:00] VITALS: TEMP 36.6; O2SAT 97
--- NOTE | 2022-05-29 02:39 | PC.NURSE ---
WEEKLY CHARTING - WEEK 4: Vital signs reviewed - no concerns. Temporary and admission care plan reviewed - no change. No documented behaviors in the last month. Currently receives sertraline 50mg daily and melatonin 6mg at HS with no noted adverse effects. Able to communicate needs. No hearing impairment or visual deficit. Cognitively intact. All medications administered by licensed nurse.?Health currently stable.
--- NOTE | 2022-05-29 08:01 | PC.NURSE ---
Week #4: Comprehensive and temporary care plan reviewed. No changes made, nothing added to temporary care plan. Resident does communicate needs and use the call light. Hearing, vision adequate. Cognitively intact. Health condition stable. Vital signs reviewed. Noted a drastic weight loss. Addressed with TIMBER SIZER OPERATOR & RDN.Diet changed to regular, double protein portions. Weight monitored 3x/week for accuracy. Mood/Behavior: No issues documented. Receives Zoloft 50mg daily with no adverse effects noted. Melatonin 6mg @ HS. No changes in medications.
[2022-05-29 08:29] VITALS: PULSE 74
[2022-05-29] MEDS: CHOLESTYRAMINE POWDER 4 GM PO ×2 (08:29→17:27)
[2022-05-29] MEDS: FERROUS SULFATE 325 MG TABLET PO (08:29)
[2022-05-29] MEDS: DIGOXIN 250 MCG TABLET PO (08:29)
[2022-05-29] MEDS: SERTRALINE 50 MG TABLET PO (08:30)
[2022-05-29] MEDS: MEDROXYPROGESTERONE 5 MG TABLET 20 MG PO ×2 (08:30→16:39)
[2022-05-29] MEDS: LACTOBACILLUS ACIDOPHILUS 1 TABLET 1 TAB PO ×3 (08:30→17:27)
[2022-05-29] MEDS: METOPROLOL TARTRATE 100 MG TABLET PO ×2 (08:30→16:39)
[2022-05-29] MEDS: APIXABAN 5 MG TABLET PO ×2 (08:30→20:49)
[2022-05-29] MEDS: SPIRONOLACTONE 25 MG TABLET PO (08:30)
[2022-05-29] MEDS: POTASSIUM CHLORIDE 10 MEQ CAPSULE ER PO (08:30)
[2022-05-29] MEDS: FUROSEMIDE 40 MG TABLET 20 MG PO (08:30)
[2022-05-29] MEDS: LOPERAMIDE HCL 2 MG CAPSULE PO (08:30)
[2022-05-29 10:15] VITALS: TEMP 36.2; O2SAT 94
--- NOTE | 2022-05-29 13:20 | PC.NURSE ---
Recert Visit: Resident seen by Dr. Martinez. Orders reviewed and renewed for 45days with changes. Order: Change Imodium to 2mg Q4H PRN, Hgb on 06/02, Biotene rinse swish/spit 15 ml TID PRN, Resume pneumatic compression to BLE On @ HS, off in AM. POLST done and faxed to [facility]. USER EXPERIENCE ARCHITECT notes reviewed.
[2022-05-29 15:00] VITALS: TEMP 36.6; O2SAT 97
[2022-05-29] MEDS: MELATONIN 3 MG TABLET 6 MG PO (20:49)
[2022-05-29 23:55] VITALS: TEMP 36.6; O2SAT 98
[2022-05-30 07:00] VITALS: BMI 46.7
[2022-05-30 08:15] VITALS: PULSE 70
[2022-05-30] MEDS: CHOLESTYRAMINE POWDER 4 GM PO ×2 (08:15→18:01)
[2022-05-30] MEDS: DIGOXIN 250 MCG TABLET PO (08:15)
[2022-05-30] MEDS: FERROUS SULFATE 325 MG TABLET PO (08:15)
[2022-05-30] MEDS: SPIRONOLACTONE 25 MG TABLET PO (08:16)
[2022-05-30] MEDS: FUROSEMIDE 40 MG TABLET 20 MG PO (08:16)
[2022-05-30] MEDS: MEDROXYPROGESTERONE 5 MG TABLET 20 MG PO ×2 (08:16→16:03)
[2022-05-30] MEDS: POTASSIUM CHLORIDE 10 MEQ CAPSULE ER PO (08:16)
[2022-05-30] MEDS: LACTOBACILLUS ACIDOPHILUS 1 TABLET 1 TAB PO ×3 (08:16→18:01)
[2022-05-30] MEDS: METOPROLOL TARTRATE 100 MG TABLET PO ×2 (08:16→16:03)
[2022-05-30] MEDS: APIXABAN 5 MG TABLET PO ×2 (08:16→20:59)
[2022-05-30] MEDS: SERTRALINE 50 MG TABLET PO (08:16)
[2022-05-30 10:32] VITALS: TEMP 36.4; O2SAT 100
[2022-05-30 15:00] VITALS: BP 129/78; PULSE 65; RESP 18; TEMP 36.4; O2SAT 99
[2022-05-30] MEDS: MELATONIN 3 MG TABLET 6 MG PO (20:59)
--- NOTE | 2022-05-30 21:39 | PC.NURSE ---
Skin assessment: Bed bath was done this evening. No areas of concern at this time.
[2022-05-31 00:13] VITALS: TEMP 36.5; O2SAT 100
[2022-05-31 07:51] VITALS: PULSE 76
[2022-05-31] MEDS: FERROUS SULFATE 325 MG TABLET PO (07:51)
[2022-05-31] MEDS: CHOLESTYRAMINE POWDER 4 GM PO ×2 (07:51→17:14)
[2022-05-31] MEDS: FUROSEMIDE 40 MG TABLET 20 MG PO (07:51)
[2022-05-31] MEDS: MEDROXYPROGESTERONE 5 MG TABLET 20 MG PO ×2 (07:51→15:43)
[2022-05-31] MEDS: POTASSIUM CHLORIDE 10 MEQ CAPSULE ER PO (07:51)
[2022-05-31] MEDS: SPIRONOLACTONE 25 MG TABLET PO (07:51)
[2022-05-31] MEDS: LACTOBACILLUS ACIDOPHILUS 1 TABLET 1 TAB PO ×3 (07:51→17:14)
[2022-05-31] MEDS: METOPROLOL TARTRATE 100 MG TABLET PO ×2 (07:51→15:43)
[2022-05-31] MEDS: DIGOXIN 250 MCG TABLET PO (07:51)
[2022-05-31] MEDS: SERTRALINE 50 MG TABLET PO (07:52)
[2022-05-31] MEDS: APIXABAN 5 MG TABLET PO ×2 (08:24→20:30)
[2022-05-31 10:18] VITALS: TEMP 36.6; O2SAT 97
[2022-05-31 13:18] VITALS: BMI 46.8
[2022-05-31 15:00] VITALS: TEMP 36.6; O2SAT 98
[2022-05-31] MEDS: MELATONIN 3 MG TABLET 6 MG PO (20:30)
[2022-05-31 23:52] VITALS: TEMP 36.5; O2SAT 96
[2022-06-01 07:00] VITALS: TEMP 37; O2SAT 99
[2022-06-01] MEDS: FUROSEMIDE 40 MG TABLET 20 MG PO (08:33)
[2022-06-01] MEDS: FERROUS SULFATE 325 MG TABLET PO (08:33)
[2022-06-01] MEDS: METOPROLOL TARTRATE 100 MG TABLET PO ×2 (08:33→16:54)
[2022-06-01] MEDS: CHOLESTYRAMINE POWDER 4 GM PO ×2 (08:33→17:08)
[2022-06-01] MEDS: SERTRALINE 50 MG TABLET PO (08:34)
[2022-06-01] MEDS: POTASSIUM CHLORIDE 10 MEQ CAPSULE ER PO (08:34)
[2022-06-01] MEDS: SPIRONOLACTONE 25 MG TABLET PO (08:34)
[2022-06-01] MEDS: MEDROXYPROGESTERONE 5 MG TABLET 20 MG PO ×2 (08:34→16:55)
[2022-06-01] MEDS: LACTOBACILLUS ACIDOPHILUS 1 TABLET 1 TAB PO ×3 (08:34→16:58)
[2022-06-01] MEDS: APIXABAN 5 MG TABLET PO ×2 (08:35→20:06)
[2022-06-01 08:44] VITALS: PULSE 67
[2022-06-01] MEDS: DIGOXIN 250 MCG TABLET PO (08:44)
--- NOTE | 2022-06-01 11:00 | PC.NURSE ---
COVID OUTBREAK TESTING Resident and residents family gave verbal consent for outbreak COVID testing. Resident is currently asymptomatic.? Resident/family will be notified only if resident is positive.
[2022-06-01 14:05] LABS: SARS PCR* Negative SARS-CoV-2 (Negative)
[2022-06-01 15:00] VITALS: TEMP 36.6; O2SAT 100
[2022-06-01] MEDS: MELATONIN 3 MG TABLET 6 MG PO (20:05)
[2022-06-02 01:27] VITALS: TEMP 36.6; O2SAT 99
[2022-06-02] MEDS: CHOLESTYRAMINE POWDER 4 GM PO ×2 (08:04→17:08)
[2022-06-02 08:05] VITALS: PULSE 72
[2022-06-02] MEDS: METOPROLOL TARTRATE 100 MG TABLET PO ×2 (08:05→17:08)
[2022-06-02] MEDS: MEDROXYPROGESTERONE 5 MG TABLET 20 MG PO ×2 (08:05→17:08)
[2022-06-02] MEDS: LACTOBACILLUS ACIDOPHILUS 1 TABLET 1 TAB PO ×3 (08:05→17:10)
[2022-06-02] MEDS: POTASSIUM CHLORIDE 10 MEQ CAPSULE ER PO (08:05)
[2022-06-02] MEDS: DIGOXIN 250 MCG TABLET PO (08:05)
[2022-06-02] MEDS: FERROUS SULFATE 325 MG TABLET PO (08:05)
[2022-06-02] MEDS: FUROSEMIDE 40 MG TABLET 20 MG PO (08:05)
[2022-06-02] MEDS: SERTRALINE 50 MG TABLET PO (08:05)
[2022-06-02] MEDS: SPIRONOLACTONE 25 MG TABLET PO (08:05)
[2022-06-02] MEDS: APIXABAN 5 MG TABLET PO ×2 (08:32→20:34)
[2022-06-02 10:14] VITALS: TEMP 36.6; O2SAT 100
[2022-06-02 10:53] LABS: Hemoglobin* 12.4 gm/dL (12.0-16.0)
[2022-06-02 11:04] LABS: Chloride* 108 mmol/L (96-114); Potassium* 4.8 mmol/L (3.6-5.1); Sodium* 137 mmol/L (135-149)
[2022-06-02 11:07] LABS: Blood Urea Nitrogen* 16 mg/dL (7-30); Carbon Dioxide* 26 mmol/L (20-32); Creatinine* 1.1 mg/dL (0.5-1.5); Est. Creatinine Clearance* 39.92; Estimated Glomerular Filt Rate 53 ml/min; Glucose* 120 mg/dL (60-115)
[2022-06-02 11:08] LABS: Calcium* 9.4 mg/dL (8.4-10.6)
--- NOTE | 2022-06-02 11:26 | PC.NURSE ---
Order: MRI of abdomen,chest and pelvis by VOLUNTEER RECRUITMENT COORDINATORJulieta.
--- NOTE | 2022-06-02 12:03 | PC.NURSE ---
Okay to wear DVT prevention system on-am, off-hs per resident request by Julieta BAEZ.
[2022-06-02 13:18] VITALS: BMI 46.8
[2022-06-02 15:00] VITALS: TEMP 36.3; O2SAT 96
[2022-06-02] MEDS: MELATONIN 3 MG TABLET 6 MG PO (20:34)
[2022-06-02 23:00] VITALS: TEMP 37.1; O2SAT 93
[2022-06-03] MEDS: CHOLESTYRAMINE POWDER 4 GM PO ×2 (08:20→17:06)
[2022-06-03] MEDS: FERROUS SULFATE 325 MG TABLET PO (08:20)
[2022-06-03] MEDS: SERTRALINE 50 MG TABLET PO (08:21)
[2022-06-03] MEDS: SPIRONOLACTONE 25 MG TABLET PO (08:21)
[2022-06-03] MEDS: MEDROXYPROGESTERONE 5 MG TABLET 20 MG PO ×2 (08:21→16:08)
[2022-06-03] MEDS: METOPROLOL TARTRATE 100 MG TABLET PO ×2 (08:21→16:08)
[2022-06-03] MEDS: POTASSIUM CHLORIDE 10 MEQ CAPSULE ER PO (08:21)
[2022-06-03] MEDS: FUROSEMIDE 40 MG TABLET 20 MG PO (08:21)
[2022-06-03] MEDS: APIXABAN 5 MG TABLET PO ×2 (08:21→20:31)
[2022-06-03] MEDS: LACTOBACILLUS ACIDOPHILUS 1 TABLET 1 TAB PO ×3 (08:21→17:06)
[2022-06-03 08:22] VITALS: PULSE 68
[2022-06-03] MEDS: DIGOXIN 250 MCG TABLET PO (08:22)
[2022-06-03 10:04] VITALS: TEMP 36.3; O2SAT 99
[2022-06-03 15:00] VITALS: TEMP 36.2; O2SAT 98
[2022-06-03] MEDS: MELATONIN 3 MG TABLET 6 MG PO (20:31)
[2022-06-03 23:00] VITALS: TEMP 36.9; O2SAT 96
--- NOTE | 2022-06-04 09:45 | CRLHL7_ITS ---
For Patients: As a result of the Century Cures Act, medical imaging exams and procedure reports are released immediately into your electronic medical record. You may view this report before your referring provider. If you have questions, please contact your health care provider. INDICATION: UTERINE BLEEDING, SIGNIFICANT WEIGHT LOSS. TECHNIQUE: Abdominal and pelvic MRI T1-T2 and post-contrast T1. Diffusion weighting. Multiplanar images of the pelvis. Contrast: Intravenous [id number] cc. COMPARISON: Ultrasound pelvis March 09, 2022 FINDINGS: Liver: No mass lesion. No fatty infiltration Pancreas spleen adrenal glands: Unremarkable Biliary tree: Multiple stones are present in the gallbladder. Kidneys: Multiple renal cortical cysts. No hydronephrosis. No definite renal mass lesion. Lymph nodes: No pathologic lymph node enlargement. Pelvis: Enlarged uterus with vertical measurement 20 centimeters. Innumerable hypointense masses throughout the myometrium. Largest exophytic masses are present at the left uterine corpus measuring 9 centimeters and at the right anterior uterine corpus measuring 6 x 14 centimeters. Endometrial complex has normal morphology although multiple submucosal nodules are present. Cervix: Not well assessed Vagina: Unremarkable. Miscellaneous pelvis: No enlarged lymph nodes. Ovaries are difficult to visualize. No free fluid. Urinary bladder is unremarkable. IMPRESSION: 1. Markedly enlarged uterus with innumerable masses compatible with fibroids. 2. Submucosal fibroids are present. The endometrial complex is of normal thickness. 3. Multiple stones in the gallbladder. Dictated by Waldo Person MD @ 06/04/2022 2:44:33 PM Signed by: Waldo Person MD @06/04/2022 2:44:33 PM (Electronic Signature) jj/Dictated by: Waldo Person MD @ 06/04/2022 2:45:00 PM (Electronically Signed)
--- NOTE | 2022-06-04 09:45 | CRLHL7_ITS ---
For Patients: As a result of the Century Cures Act, medical imaging exams and procedure reports are released immediately into your electronic medical record. You may view this report before your referring provider. If you have questions, please contact your health care provider. INDICATION: UTERINE BLEEDING, SIGNIFICANT WEIGHT LOSS. TECHNIQUE: Abdominal and pelvic MRI T1-T2 and post-contrast T1. Diffusion weighting. Multiplanar images of the pelvis. Contrast: Intravenous [id number] cc. COMPARISON : Ultrasound pelvis March 09, 2022 FINDINGS: Liver: No mass lesion. No fatty infiltration Pancreas spleen adrenal glands : Unremarkable Biliary tree: Multiple stones are present in the gallbladder. Kidneys: Multiple renal cortical cysts. No hydronephrosis. No definite renal mass lesion. Lymph nodes: No pathologic lymph node enlargement. Pelvis: Enlarged uterus with vertical measurement 20 centimeters. Innumerable hypointense masses throughout the myometrium. Largest exophytic masses are present at the left uterine corpus measuring 9 centimeters and at the right anterior uterine corpus measuring 6 x 14 centimeters. Endometrial complex has normal morphology although multiple submucosal nodules are present. Cervix: Not well assessed Vagina: Unremarkable. Miscellaneous pelvis: No enlarged lymph nodes. Ovaries are difficult to visualize. No free fluid. Urinary bladder is unremarkable. IMPRESSION: 1. Markedly enlarged uterus with innumerable masses compatible with fibroids. 2. Submucosal fibroids are present. The endometrial complex is of normal thickness. 3. Multiple stones in the gallbladder. Dictated by Waldo Person MD @ 06/04/2022 2:44:33 PM (Electronically Signed)
[2022-06-04 11:02] VITALS: PULSE 74
[2022-06-04] MEDS: FUROSEMIDE 40 MG TABLET 20 MG PO (11:02)
[2022-06-04] MEDS: FERROUS SULFATE 325 MG TABLET PO (11:02)
[2022-06-04] MEDS: CHOLESTYRAMINE POWDER 4 GM PO ×2 (11:02→17:16)
[2022-06-04] MEDS: METOPROLOL TARTRATE 100 MG TABLET PO ×2 (11:02→15:20)
[2022-06-04] MEDS: DIGOXIN 250 MCG TABLET PO (11:02)
[2022-06-04] MEDS: SPIRONOLACTONE 25 MG TABLET PO (11:03)
[2022-06-04] MEDS: LACTOBACILLUS ACIDOPHILUS 1 TABLET 1 TAB PO ×2 (11:03→17:16)
[2022-06-04] MEDS: MEDROXYPROGESTERONE 5 MG TABLET 20 MG PO ×2 (11:03→15:20)
[2022-06-04] MEDS: SERTRALINE 50 MG TABLET PO (11:03)
[2022-06-04] MEDS: POTASSIUM CHLORIDE 10 MEQ CAPSULE ER PO (11:03)
[2022-06-04] MEDS: APIXABAN 5 MG TABLET PO ×2 (11:04→20:00)
--- NOTE | 2022-06-04 11:50 | PC.NURSE ---
Status: Okay to self administer Biotene spray and keep at bedside per resident request by Julieta BAEZ.
[2022-06-04 13:13] VITALS: TEMP 36.4; O2SAT 96
[2022-06-04 15:00] VITALS: TEMP 36.8; O2SAT 99
[2022-06-04] MEDS: LOPERAMIDE HCL 2 MG CAPSULE PO (15:26)
[2022-06-04] MEDS: MELATONIN 3 MG TABLET 6 MG PO (20:00)
[2022-06-04 23:00] VITALS: TEMP 36.5; O2SAT 96
--- NOTE | 2022-06-05 01:43 | PC.NURSE ---
WEEKLY CHARTING - WEEK 1: Vital signs reviewed - no concerns. Temporary and comprehensive care plan reviewed - no change. Hx of knee pain. Is able to verbalize need for analgesia. No scheduled oral analgesia. Has order for acetaminophen 975mg Q8 hours PRN with no documented use in the last month. Requires assist of 1-2 with dressing and bathing. Able to complete grooming tasks and oral cares independently after set-up. Receives a 1500 calorie diet with double protein portions, regular textures, and thin liquids. Eats independently. No chewing/swallowing problems. Continues with weight loss as planned.
[2022-06-05 08:31] VITALS: PULSE 68
[2022-06-05] MEDS: CHOLESTYRAMINE POWDER 4 GM PO ×2 (08:31→17:32)
[2022-06-05] MEDS: POTASSIUM CHLORIDE 10 MEQ CAPSULE ER PO (08:31)
[2022-06-05] MEDS: APIXABAN 5 MG TABLET PO ×2 (08:31→20:44)
[2022-06-05] MEDS: LACTOBACILLUS ACIDOPHILUS 1 TABLET 1 TAB PO ×3 (08:31→16:52)
[2022-06-05] MEDS: SPIRONOLACTONE 25 MG TABLET PO (08:31)
[2022-06-05] MEDS: SERTRALINE 50 MG TABLET PO (08:31)
[2022-06-05] MEDS: MEDROXYPROGESTERONE 5 MG TABLET 20 MG PO ×2 (08:31→16:51)
[2022-06-05] MEDS: FERROUS SULFATE 325 MG TABLET PO (08:31)
[2022-06-05] MEDS: FUROSEMIDE 40 MG TABLET 20 MG PO (08:31)
[2022-06-05] MEDS: METOPROLOL TARTRATE 100 MG TABLET PO ×2 (08:31→16:50)
[2022-06-05] MEDS: DIGOXIN 250 MCG TABLET PO (08:31)
[2022-06-05 09:41] VITALS: TEMP 36.8; O2SAT 100
--- NOTE | 2022-06-05 09:44 | PC.NURSE ---
Week #1 - ADL's: Comprehensive and temporary care plan reviewed. No changes made, & nothing added to temporary care plan. Resident needs one assist with dressing lower half, is able to do upper half dressing. Staff to apply compression wraps to BLE in AM, remove at HS. Grooming, oral cares, and feeding done independently after set up. Needs 2 assists with bed bath. 05/22 diet changed to regular diet, double protein portions. No problem with chewing/swallowing reported. Vital signs reviewed, no concerns. Has drastic weight loss, monitored by RDN & weights 3x/week, & protein supplements in between. MRI ordered to r/o MD luz to review. Pain: Has history of knee pain. No complain the past month. Is on no schedule pain medication. Has an order Tylenol 975mg PRN. Resident is able to make needs known.
--- NOTE | 2022-06-05 13:32 | PC.NURSE ---
MRI result reviewed by Dr. Martinez with resident. Received no new orders.
[2022-06-05 15:00] VITALS: TEMP 36.7; O2SAT 100
[2022-06-05] MEDS: MELATONIN 3 MG TABLET 6 MG PO (20:43)
[2022-06-05 23:00] VITALS: TEMP 36.4; O2SAT 98
[2022-06-06 07:00] VITALS: TEMP 36; O2SAT 100; BMI 46.7
[2022-06-06] MEDS: CHOLESTYRAMINE POWDER 4 GM PO ×2 (08:52→17:03)
[2022-06-06] MEDS: FUROSEMIDE 40 MG TABLET 20 MG PO (08:53)
[2022-06-06] MEDS: POTASSIUM CHLORIDE 10 MEQ CAPSULE ER PO (08:53)
[2022-06-06] MEDS: METOPROLOL TARTRATE 100 MG TABLET PO ×2 (08:53→16:51)
[2022-06-06] MEDS: FERROUS SULFATE 325 MG TABLET PO (08:53)
[2022-06-06] MEDS: LACTOBACILLUS ACIDOPHILUS 1 TABLET 1 TAB PO ×3 (08:54→16:53)
[2022-06-06] MEDS: MEDROXYPROGESTERONE 5 MG TABLET 20 MG PO ×2 (08:54→16:52)
[2022-06-06] MEDS: SPIRONOLACTONE 25 MG TABLET PO (08:54)
[2022-06-06] MEDS: SERTRALINE 50 MG TABLET PO (08:54)
[2022-06-06] MEDS: APIXABAN 5 MG TABLET PO ×2 (08:55→20:39)
[2022-06-06 08:58] VITALS: PULSE 69
[2022-06-06] MEDS: DIGOXIN 250 MCG TABLET PO (08:58)
[2022-06-06] MEDS: LOPERAMIDE HCL 2 MG CAPSULE PO (11:03)
[2022-06-06 15:00] VITALS: BP 114/74; PULSE 76; RESP 18; TEMP 36.7; O2SAT 96
[2022-06-06] MEDS: MELATONIN 3 MG TABLET 6 MG PO (20:39)
--- NOTE | 2022-06-06 21:49 | PC.NURSE ---
Weight: Assigned aide did not get weight.
[2022-06-06 23:00] VITALS: TEMP 36.7; O2SAT 97
[2022-06-07 08:44] VITALS: PULSE 72
[2022-06-07] MEDS: POTASSIUM CHLORIDE 10 MEQ CAPSULE ER PO (08:44)
[2022-06-07] MEDS: FUROSEMIDE 40 MG TABLET 20 MG PO (08:44)
[2022-06-07] MEDS: DIGOXIN 250 MCG TABLET PO (08:44)
[2022-06-07] MEDS: METOPROLOL TARTRATE 100 MG TABLET PO ×2 (08:44→15:50)
[2022-06-07] MEDS: FERROUS SULFATE 325 MG TABLET PO (08:44)
[2022-06-07] MEDS: CHOLESTYRAMINE POWDER 4 GM PO ×2 (08:44→17:12)
[2022-06-07] MEDS: LACTOBACILLUS ACIDOPHILUS 1 TABLET 1 TAB PO ×3 (08:44→17:12)
[2022-06-07] MEDS: SERTRALINE 50 MG TABLET PO (08:45)
[2022-06-07] MEDS: APIXABAN 5 MG TABLET PO ×2 (08:45→20:33)
[2022-06-07] MEDS: MEDROXYPROGESTERONE 5 MG TABLET 20 MG PO ×2 (08:45→15:51)
[2022-06-07] MEDS: SPIRONOLACTONE 25 MG TABLET PO (08:45)
[2022-06-07 10:36] VITALS: TEMP 36.9; O2SAT 99
[2022-06-07 16:07] VITALS: TEMP 36.9; O2SAT 100
[2022-06-07] MEDS: MELATONIN 3 MG TABLET 6 MG PO (20:33)
[2022-06-07 23:00] VITALS: TEMP 36.6; O2SAT 98
[2022-06-08 07:00] VITALS: TEMP 37; O2SAT 99
[2022-06-08] MEDS: METOPROLOL TARTRATE 100 MG TABLET PO ×2 (08:32→15:30)
[2022-06-08] MEDS: CHOLESTYRAMINE POWDER 4 GM PO ×2 (08:32→17:13)
[2022-06-08] MEDS: FUROSEMIDE 40 MG TABLET 20 MG PO (08:32)
[2022-06-08] MEDS: FERROUS SULFATE 325 MG TABLET PO (08:32)
[2022-06-08] MEDS: POTASSIUM CHLORIDE 10 MEQ CAPSULE ER PO (08:32)
[2022-06-08] MEDS: SERTRALINE 50 MG TABLET PO (08:33)
[2022-06-08] MEDS: LACTOBACILLUS ACIDOPHILUS 1 TABLET 1 TAB PO ×3 (08:33→17:13)
[2022-06-08] MEDS: APIXABAN 5 MG TABLET PO ×2 (08:33→20:02)
[2022-06-08] MEDS: MEDROXYPROGESTERONE 5 MG TABLET 20 MG PO ×2 (08:33→15:30)
[2022-06-08] MEDS: SPIRONOLACTONE 25 MG TABLET PO (08:33)
[2022-06-08 08:36] VITALS: PULSE 81
[2022-06-08] MEDS: DIGOXIN 250 MCG TABLET PO (08:36)
--- NOTE | 2022-06-08 12:53 | PC.NURSE ---
COVID OUTBREAK TESTING Resident gave verbal consent for outbreak COVID testing. Resident is currently asymptomatic.? Resident/family will be notified only if resident is positive.
[2022-06-08 14:38] LABS: SARS PCR* Negative SARS-CoV-2 (Negative)
[2022-06-08 15:00] VITALS: TEMP 35.7; O2SAT 99
[2022-06-08] MEDS: MELATONIN 3 MG TABLET 6 MG PO (20:02)
[2022-06-08 23:00] VITALS: TEMP 36.8; O2SAT 94
[2022-06-09 08:59] VITALS: PULSE 69
[2022-06-09] MEDS: SPIRONOLACTONE 25 MG TABLET PO (08:59)
[2022-06-09] MEDS: APIXABAN 5 MG TABLET PO ×2 (08:59→20:04)
[2022-06-09] MEDS: LACTOBACILLUS ACIDOPHILUS 1 TABLET 1 TAB PO ×3 (08:59→16:50)
[2022-06-09] MEDS: METOPROLOL TARTRATE 100 MG TABLET PO ×2 (08:59→16:41)
[2022-06-09] MEDS: SERTRALINE 50 MG TABLET PO (08:59)
[2022-06-09] MEDS: CHOLESTYRAMINE POWDER 4 GM PO ×2 (08:59→17:02)
[2022-06-09] MEDS: FERROUS SULFATE 325 MG TABLET PO (08:59)
[2022-06-09] MEDS: FUROSEMIDE 40 MG TABLET 20 MG PO (08:59)
[2022-06-09] MEDS: POTASSIUM CHLORIDE 10 MEQ CAPSULE ER PO (08:59)
[2022-06-09] MEDS: MEDROXYPROGESTERONE 5 MG TABLET 20 MG PO ×2 (08:59→16:41)
[2022-06-09] MEDS: DIGOXIN 250 MCG TABLET PO (08:59)
--- NOTE | 2022-06-09 09:39 | PC.NURSE ---
Order: Loperamide 2mg daily per resident request by Julieta BAEZ.
[2022-06-09 10:26] VITALS: TEMP 36.4; O2SAT 99
[2022-06-09] MEDS: LOPERAMIDE HCL 2 MG CAPSULE PO (11:02)
[2022-06-09 13:49] VITALS: BMI 46.8
[2022-06-09 13:55] VITALS: BMI 46.8
--- NOTE | 2022-06-09 14:02 | PC.NURSE ---
Loose Stool: Resident had 2 episode of loose stool. PRN Loperamide 2mg was given at 1130 hours .
[2022-06-09 16:02] VITALS: TEMP 36.6; O2SAT 98
[2022-06-09] MEDS: MELATONIN 3 MG TABLET 6 MG PO (20:04)
[2022-06-09] MEDS: ACETAMINOPHEN 325 MG TABLET 975 MG PO (20:10)
[2022-06-09 23:00] VITALS: TEMP 36.8; O2SAT 95
[2022-06-10 07:00] VITALS: TEMP 36.7; O2SAT 95
[2022-06-10] MEDS: FUROSEMIDE 40 MG TABLET 20 MG PO (08:59)
[2022-06-10] MEDS: LOPERAMIDE HCL 2 MG CAPSULE PO (08:59)
[2022-06-10] MEDS: METOPROLOL TARTRATE 100 MG TABLET PO ×2 (08:59→15:07)
[2022-06-10] MEDS: CHOLESTYRAMINE POWDER 4 GM PO ×2 (08:59→17:07)
[2022-06-10] MEDS: FERROUS SULFATE 325 MG TABLET PO (08:59)
[2022-06-10] MEDS: APIXABAN 5 MG TABLET PO ×2 (09:00→20:20)
[2022-06-10] MEDS: LACTOBACILLUS ACIDOPHILUS 1 TABLET 1 TAB PO ×3 (09:00→17:07)
[2022-06-10] MEDS: POTASSIUM CHLORIDE 10 MEQ CAPSULE ER PO (09:00)
[2022-06-10] MEDS: MEDROXYPROGESTERONE 5 MG TABLET 20 MG PO ×2 (09:00→15:07)
[2022-06-10] MEDS: SERTRALINE 50 MG TABLET PO (09:00)
[2022-06-10] MEDS: SPIRONOLACTONE 25 MG TABLET PO (09:00)
[2022-06-10 09:08] VITALS: PULSE 81
[2022-06-10] MEDS: DIGOXIN 250 MCG TABLET PO (09:08)
--- NOTE | 2022-06-10 11:24 | NUTR.NU ---
Nutrition Follow-up: RDN continues to monitor resident's weight and meet with resident monthly. Resident continues on a High protein diet, per MD order. No current meal intakes to assess. Typically only orders/consumes lunch and Dinner. She is ordering high protein snack in the morning. Weight has remained stable since admit (no significant change), however gradual weight loss has been noted. Current weight of 601 lb is an error, using weight of 273 lbs from 06/09/22 as current and accurate weight; 30 days 05/16/22 264 lbs; 90 days 04/30/22 292 lbs (6.5%). RDN will continue to monitor weight monthly and follow up with resident. No new interventions at this time.
--- NOTE | 2022-06-10 14:51 | PC.PHA1 ---
FIELD SCOUT PHARMACIST'S MEDICATION REVIEW: MEDICATION MONITORING: Sertaline 50 mg daily IRREGULARITY OR COMMENTS:Patient had sertraline started during her extended hospital stay. Per PT notes she has little interest in continuing her sit to stand exercises. Oncology consult also on order as patient is taking medroxyprogesterone 20 mg bid for prevention of excessive vaginal bleeding. SUGGESTED COURSE OF ACTION TAKEN:Sertraline dose increase may be beneficial.
[2022-06-10 15:00] VITALS: TEMP 36.3; O2SAT 98
[2022-06-10] MEDS: MELATONIN 3 MG TABLET 6 MG PO (19:35)
[2022-06-10] MEDS: ACETAMINOPHEN 325 MG TABLET 975 MG PO (21:09)
[2022-06-10 23:00] VITALS: TEMP 36.4; O2SAT 95
[2022-06-11 08:32] VITALS: PULSE 70
[2022-06-11] MEDS: DIGOXIN 250 MCG TABLET PO (08:32)
[2022-06-11] MEDS: CHOLESTYRAMINE POWDER 4 GM PO ×2 (08:32→17:13)
[2022-06-11] MEDS: FERROUS SULFATE 325 MG TABLET PO (08:32)
[2022-06-11] MEDS: SPIRONOLACTONE 25 MG TABLET PO (08:40)
[2022-06-11] MEDS: METOPROLOL TARTRATE 100 MG TABLET PO ×2 (08:40→16:43)
[2022-06-11] MEDS: FUROSEMIDE 40 MG TABLET 20 MG PO (08:40)
[2022-06-11] MEDS: SERTRALINE 50 MG TABLET PO (08:40)
[2022-06-11] MEDS: MEDROXYPROGESTERONE 5 MG TABLET 20 MG PO ×2 (08:40→16:44)
[2022-06-11] MEDS: LACTOBACILLUS ACIDOPHILUS 1 TABLET 1 TAB PO ×3 (08:40→16:47)
[2022-06-11] MEDS: LOPERAMIDE HCL 2 MG CAPSULE PO (08:40)
[2022-06-11] MEDS: APIXABAN 5 MG TABLET PO ×2 (08:40→20:00)
[2022-06-11] MEDS: POTASSIUM CHLORIDE 10 MEQ CAPSULE ER PO (08:40)
[2022-06-11 10:31] VITALS: TEMP 36.4; O2SAT 99
[2022-06-11 15:00] VITALS: TEMP 36.7; O2SAT 94
[2022-06-11] MEDS: MELATONIN 3 MG TABLET 6 MG PO (19:59)
[2022-06-11 23:00] VITALS: TEMP 37.1; O2SAT 96
--- NOTE | 2022-06-12 03:36 | PC.NURSE ---
WEEKLY CHARTING - WEEK 2: Vital signs reviewed - no concerns. Temporary and comprehensive care plan reviewed - no change. Requires assist of 2 with EZ stand for all transfers. Is non-ambulatory at this time. Able to propel w/c independently in room. Able to move independently in bed. Uses bilateral 1/4 side rails. Will call for assistance with bed mobility PRN. Per last fall risk assessment, resident is at low risk for falls. Fall interventions: call light in reach, bed in low position with wheels locked, area free of clutter, non-slip footwear/gripper socks.
--- NOTE | 2022-06-12 07:40 | PC.NURSE ---
Weekly Charting, Week 2 - Mobility: Comprehensive and temporary care plan reviewed. No changes made, nothing added to temporary care plan. Resident is non ambulatory at this time. Transfers using a medi stand with 2 assists. Is able to reposition self in bed and chair. Will call for assists as needed. No alarms. Bilateral 1/4 bed rails up at all times to promote independence with bed positioning. Vital signs reviewed, no concerns. Fall: No falls since admission. Is a low fall risk according to assessment done on 05/14/22. Fall interventions: Call light within reach, bed in low position with brakes locked, gripper socks for transfers.
[2022-06-12 08:20] VITALS: PULSE 70
[2022-06-12] MEDS: FUROSEMIDE 40 MG TABLET 20 MG PO (08:20)
[2022-06-12] MEDS: CHOLESTYRAMINE POWDER 4 GM PO ×2 (08:20→17:21)
[2022-06-12] MEDS: SERTRALINE 50 MG TABLET PO (08:20)
[2022-06-12] MEDS: LOPERAMIDE HCL 2 MG CAPSULE PO (08:20)
[2022-06-12] MEDS: METOPROLOL TARTRATE 100 MG TABLET PO ×2 (08:20→15:01)
[2022-06-12] MEDS: SPIRONOLACTONE 25 MG TABLET PO (08:20)
[2022-06-12] MEDS: LACTOBACILLUS ACIDOPHILUS 1 TABLET 1 TAB PO ×3 (08:20→17:21)
[2022-06-12] MEDS: FERROUS SULFATE 325 MG TABLET PO (08:20)
[2022-06-12] MEDS: MEDROXYPROGESTERONE 5 MG TABLET 20 MG PO ×2 (08:20→15:01)
[2022-06-12] MEDS: DIGOXIN 250 MCG TABLET PO (08:20)
[2022-06-12] MEDS: APIXABAN 5 MG TABLET PO ×2 (08:20→20:37)
[2022-06-12] MEDS: POTASSIUM CHLORIDE 10 MEQ CAPSULE ER PO (08:20)
[2022-06-12 11:00] VITALS: TEMP 36.5; O2SAT 99
[2022-06-12 15:00] VITALS: TEMP 36.7; O2SAT 96
--- NOTE | 2022-06-12 16:12 | PC.SOCIAL ---
Met with resident in resident's room. Resident had questions on why her [facility] bill was so high. Phone call to Angeles Norman in Patient Financial Services to discuss. Angeles states she talked to resident and informed resident she has to reach out to her county worker for [place]. Assisted resident in locating contact information for the [place] worker (Olga Josefina [phone]). Resident made a phone call to [employer] worker to ask questions about the bill. [employer] worker informed resident that the bill was high and asked resident to ensure that Patient Financial Services was billing MA/[employer] first. Phone call to Angeles Lorenzo in Patient financial Services to inform her what the [facility] worker stated. Angeles states the amounts for spend down were sent to Angeles from the [facility] and between the April and May amounts it equals the billing amount of [phone]. Angeles informs that she will call the [facility] worker on Wednesday to discuss further. Provided information to resident. Social work will follow up as necessary.
[2022-06-12] MEDS: MELATONIN 3 MG TABLET 6 MG PO (20:37)
[2022-06-12] MEDS: ACETAMINOPHEN 325 MG TABLET 975 MG PO (20:48)
[2022-06-13 00:17] VITALS: TEMP 36.5; O2SAT 94
[2022-06-13 07:00] VITALS: BMI 47.7
[2022-06-13] MEDS: CHOLESTYRAMINE POWDER 4 GM PO ×2 (08:01→17:14)
[2022-06-13] MEDS: FERROUS SULFATE 325 MG TABLET PO (08:01)
[2022-06-13 08:02] VITALS: PULSE 82
[2022-06-13] MEDS: DIGOXIN 250 MCG TABLET PO (08:02)
[2022-06-13] MEDS: FUROSEMIDE 40 MG TABLET 20 MG PO (08:03)
[2022-06-13] MEDS: LOPERAMIDE HCL 2 MG CAPSULE PO (08:04)
[2022-06-13] MEDS: METOPROLOL TARTRATE 100 MG TABLET PO ×2 (08:06→16:10)
[2022-06-13] MEDS: POTASSIUM CHLORIDE 10 MEQ CAPSULE ER PO (08:06)
[2022-06-13] MEDS: LACTOBACILLUS ACIDOPHILUS 1 TABLET 1 TAB PO ×3 (08:07→17:14)
[2022-06-13] MEDS: MEDROXYPROGESTERONE 5 MG TABLET 20 MG PO ×2 (08:07→16:10)
[2022-06-13] MEDS: SPIRONOLACTONE 25 MG TABLET PO (08:07)
[2022-06-13] MEDS: APIXABAN 5 MG TABLET PO ×2 (08:08→20:31)
[2022-06-13] MEDS: SERTRALINE 50 MG TABLET PO (08:08)
[2022-06-13 12:57] VITALS: TEMP 36.6; O2SAT 98
[2022-06-13 15:00] VITALS: RESP 18; TEMP 36.7; O2SAT 100
--- NOTE | 2022-06-13 15:51 | PC.NURSE ---
Bath/Skin Assessment: No skin concerns noted
[2022-06-13] MEDS: MELATONIN 3 MG TABLET 6 MG PO (20:31)
[2022-06-13 21:43] VITALS: BP 127/80; PULSE 68; RESP 18; TEMP 36.7; O2SAT 99
[2022-06-13 23:58] VITALS: TEMP 36.7; O2SAT 100
[2022-06-14] MEDS: CHOLESTYRAMINE POWDER 4 GM PO ×2 (08:28→17:19)
[2022-06-14 08:29] VITALS: PULSE 76
[2022-06-14] MEDS: FUROSEMIDE 40 MG TABLET 20 MG PO (08:29)
[2022-06-14] MEDS: FERROUS SULFATE 325 MG TABLET PO (08:29)
[2022-06-14] MEDS: DIGOXIN 250 MCG TABLET PO (08:29)
[2022-06-14] MEDS: LOPERAMIDE HCL 2 MG CAPSULE PO (08:30)
[2022-06-14] MEDS: METOPROLOL TARTRATE 100 MG TABLET PO ×2 (08:30→15:13)
[2022-06-14] MEDS: LACTOBACILLUS ACIDOPHILUS 1 TABLET 1 TAB PO ×3 (08:31→17:19)
[2022-06-14] MEDS: POTASSIUM CHLORIDE 10 MEQ CAPSULE ER PO (08:31)
[2022-06-14] MEDS: SPIRONOLACTONE 25 MG TABLET PO (08:32)
[2022-06-14] MEDS: SERTRALINE 50 MG TABLET PO (08:32)
[2022-06-14] MEDS: MEDROXYPROGESTERONE 5 MG TABLET 20 MG PO ×2 (08:32→15:13)
[2022-06-14] MEDS: APIXABAN 5 MG TABLET PO ×2 (09:33→20:17)
[2022-06-14 11:07] VITALS: TEMP 36.9; O2SAT 98
[2022-06-14 15:00] VITALS: TEMP 36.4; O2SAT 99
[2022-06-14] MEDS: MELATONIN 3 MG TABLET 6 MG PO (20:16)
[2022-06-14 23:55] VITALS: TEMP 36.7; O2SAT 98
[2022-06-15 07:47] VITALS: PULSE 80
[2022-06-15] MEDS: SERTRALINE 50 MG TABLET PO (07:47)
[2022-06-15] MEDS: CHOLESTYRAMINE POWDER 4 GM PO ×2 (07:47→17:04)
[2022-06-15] MEDS: MEDROXYPROGESTERONE 5 MG TABLET 20 MG PO ×2 (07:47→15:45)
[2022-06-15] MEDS: POTASSIUM CHLORIDE 10 MEQ CAPSULE ER PO (07:47)
[2022-06-15] MEDS: FUROSEMIDE 40 MG TABLET 20 MG PO (07:47)
[2022-06-15] MEDS: METOPROLOL TARTRATE 100 MG TABLET PO ×2 (07:47→15:45)
[2022-06-15] MEDS: LOPERAMIDE HCL 2 MG CAPSULE PO (07:47)
[2022-06-15] MEDS: LACTOBACILLUS ACIDOPHILUS 1 TABLET 1 TAB PO ×3 (07:47→17:04)
[2022-06-15] MEDS: FERROUS SULFATE 325 MG TABLET PO (07:47)
[2022-06-15] MEDS: DIGOXIN 250 MCG TABLET PO (07:47)
[2022-06-15] MEDS: SPIRONOLACTONE 25 MG TABLET PO (07:47)
[2022-06-15] MEDS: APIXABAN 5 MG TABLET PO ×2 (08:50→20:15)
[2022-06-15 10:45] VITALS: TEMP 36.3; O2SAT 98
--- NOTE | 2022-06-15 12:03 | PC.NURSE ---
COVID OUTBREAK TESTING Resident gave verbal consent for outbreak COVID testing. Resident is currently asymptomatic.? Resident/family will be notified only if resident is positive.
[2022-06-15 13:17] LABS: SARS PCR* Negative SARS-CoV-2 (Negative)
[2022-06-15 15:16] VITALS: TEMP 36.3; O2SAT 98
--- NOTE | 2022-06-15 15:27 | REH.PT ---
Re-checked with pt to see if she is ready to try sit>stand transfers at hand rail.? Pt reports she isn't quite ready yet but to try back next week.? Continues to work on standing in the EZ stand for 7 mins 1x/day.? Performs HEP 1-2x/day ind. Encouraged her to propel w/c in the hallway for exercise. Feels like she is getting stronger but not ready for PT at this time.? Will check in on pt again in next week.
[2022-06-15] MEDS: MELATONIN 3 MG TABLET 6 MG PO (20:15)
[2022-06-15 23:00] VITALS: TEMP 36.7; O2SAT 100
[2022-06-16 07:00] VITALS: TEMP 37; O2SAT 98; BMI 46.8
[2022-06-16] MEDS: METOPROLOL TARTRATE 100 MG TABLET PO ×2 (08:27→15:52)
[2022-06-16] MEDS: CHOLESTYRAMINE POWDER 4 GM PO ×2 (08:27→17:02)
[2022-06-16] MEDS: LOPERAMIDE HCL 2 MG CAPSULE PO (08:27)
[2022-06-16] MEDS: FERROUS SULFATE 325 MG TABLET PO (08:27)
[2022-06-16] MEDS: FUROSEMIDE 40 MG TABLET 20 MG PO (08:27)
[2022-06-16] MEDS: LACTOBACILLUS ACIDOPHILUS 1 TABLET 1 TAB PO ×3 (08:28→16:51)
[2022-06-16] MEDS: SPIRONOLACTONE 25 MG TABLET PO (08:28)
[2022-06-16] MEDS: MEDROXYPROGESTERONE 5 MG TABLET 20 MG PO ×2 (08:28→15:52)
[2022-06-16] MEDS: POTASSIUM CHLORIDE 10 MEQ CAPSULE ER PO (08:28)
[2022-06-16] MEDS: APIXABAN 5 MG TABLET PO ×2 (08:29→20:06)
[2022-06-16] MEDS: SERTRALINE 50 MG TABLET PO (08:29)
[2022-06-16 08:32] VITALS: PULSE 72
[2022-06-16] MEDS: DIGOXIN 250 MCG TABLET PO (08:32)
[2022-06-16 15:00] VITALS: TEMP 36.9; O2SAT 95
[2022-06-16] MEDS: MELATONIN 3 MG TABLET 6 MG PO (20:06)
[2022-06-16 23:00] VITALS: TEMP 36.6; O2SAT 98
[2022-06-17] MEDS: APIXABAN 5 MG TABLET PO ×2 (08:30→20:08)
[2022-06-17] MEDS: SPIRONOLACTONE 25 MG TABLET PO (08:31)
[2022-06-17] MEDS: SERTRALINE 50 MG TABLET PO (08:31)
[2022-06-17] MEDS: FUROSEMIDE 40 MG TABLET 20 MG PO (08:33)
[2022-06-17] MEDS: MEDROXYPROGESTERONE 5 MG TABLET 20 MG PO ×2 (08:33→15:17)
[2022-06-17] MEDS: LOPERAMIDE HCL 2 MG CAPSULE PO (08:33)
[2022-06-17] MEDS: CHOLESTYRAMINE POWDER 4 GM PO ×2 (08:33→17:28)
[2022-06-17] MEDS: METOPROLOL TARTRATE 100 MG TABLET PO ×2 (08:33→15:17)
[2022-06-17] MEDS: LACTOBACILLUS ACIDOPHILUS 1 TABLET 1 TAB PO ×3 (08:33→17:28)
[2022-06-17] MEDS: POTASSIUM CHLORIDE 10 MEQ CAPSULE ER PO (08:33)
[2022-06-17] MEDS: FERROUS SULFATE 325 MG TABLET PO (08:34)
[2022-06-17 08:47] VITALS: PULSE 71
[2022-06-17] MEDS: DIGOXIN 250 MCG TABLET PO (08:47)
--- NOTE | 2022-06-17 14:00 | PC.NURSE ---
Spoke to resident about providers note from 06/12/22: Please help Emily arrange gynecology consult for: postmenopausal bleeding/uterine fibroids. Based on previous input from local gynecology group she will likely need to be seen by a fighting vehicle systems maintainer who operates out of a tertiary care center with ICU capabilities in [place] or the [facility]. At this time I spoke with resident and she is not ready to discuss this at this time. She does not want me to make arrangement at this time and she would like FOLDER MACHINE OPERATOR to come speak with her in 2-3 weeks to discuss further. If in the mean time she feels she has come to a decision to have the surgery she will call FOLDER MACHINE OPERATOR to discuss sooner.
[2022-06-17] MEDS: MELATONIN 3 MG TABLET 6 MG PO (20:08)
[2022-06-18] MEDS: CHOLESTYRAMINE POWDER 4 GM PO ×2 (08:28→17:22)
[2022-06-18] MEDS: FERROUS SULFATE 325 MG TABLET PO (08:28)
[2022-06-18 08:29] VITALS: PULSE 74
[2022-06-18] MEDS: FUROSEMIDE 40 MG TABLET 20 MG PO (08:29)
[2022-06-18] MEDS: LACTOBACILLUS ACIDOPHILUS 1 TABLET 1 TAB PO ×3 (08:29→16:46)
[2022-06-18] MEDS: METOPROLOL TARTRATE 100 MG TABLET PO ×2 (08:29→16:04)
[2022-06-18] MEDS: DIGOXIN 250 MCG TABLET PO (08:29)
[2022-06-18] MEDS: SERTRALINE 50 MG TABLET PO (08:29)
[2022-06-18] MEDS: MEDROXYPROGESTERONE 5 MG TABLET 20 MG PO ×2 (08:29→16:03)
[2022-06-18] MEDS: SPIRONOLACTONE 25 MG TABLET PO (08:29)
[2022-06-18] MEDS: APIXABAN 5 MG TABLET PO ×2 (08:29→20:01)
[2022-06-18] MEDS: LOPERAMIDE HCL 2 MG CAPSULE PO (08:29)
[2022-06-18] MEDS: POTASSIUM CHLORIDE 10 MEQ CAPSULE ER PO (08:29)
--- NOTE | 2022-06-18 10:28 | PC.SPIRITC ---
Emily talked about some improvements she is seeing, along with getting back tests results from her MRI and discerning what she wants to do with the information she received. I provided support, time to talk about the feelings going into getting her MRI, and how she is doing with stay at the [facility].
[2022-06-18] MEDS: MELATONIN 3 MG TABLET 6 MG PO (19:56)
--- NOTE | 2022-06-19 01:15 | PC.NURSE ---
WEEKLY CHARTING WEEK 3 Vital signs reviewed with no concerns Comprehensive care plan and temporary care plan reviewed. No changes made Toileting: Is incontinent of bladder, continent of bowel. Res put the call light when needed to be changed. Alie cares, incontinent pad, and clothing adjustment managed by staff. Wears XX large briefs. Skin. Skin is intact with no concerns. Skin check done every bath and during cares.
[2022-06-19] MEDS: CHOLESTYRAMINE POWDER 4 GM PO ×2 (08:33→17:14)
[2022-06-19] MEDS: FUROSEMIDE 40 MG TABLET 20 MG PO (08:34)
[2022-06-19] MEDS: FERROUS SULFATE 325 MG TABLET PO (08:34)
[2022-06-19] MEDS: LOPERAMIDE HCL 2 MG CAPSULE PO (08:34)
[2022-06-19] MEDS: METOPROLOL TARTRATE 100 MG TABLET PO ×2 (08:34→17:13)
[2022-06-19] MEDS: MEDROXYPROGESTERONE 5 MG TABLET 20 MG PO ×2 (08:35→17:14)
[2022-06-19] MEDS: SPIRONOLACTONE 25 MG TABLET PO (08:35)
[2022-06-19] MEDS: LACTOBACILLUS ACIDOPHILUS 1 TABLET 1 TAB PO ×3 (08:35→17:14)
[2022-06-19] MEDS: SERTRALINE 50 MG TABLET PO (08:35)
[2022-06-19] MEDS: POTASSIUM CHLORIDE 10 MEQ CAPSULE ER PO (08:35)
[2022-06-19] MEDS: APIXABAN 5 MG TABLET PO ×2 (08:36→20:20)
[2022-06-19 08:38] VITALS: PULSE 72
[2022-06-19] MEDS: DIGOXIN 250 MCG TABLET PO (08:38)
[2022-06-19] MEDS: MELATONIN 3 MG TABLET 6 MG PO (20:20)
[2022-06-20 07:00] VITALS: BMI 46.3
[2022-06-20] MEDS: FERROUS SULFATE 325 MG TABLET PO (08:38)
[2022-06-20] MEDS: CHOLESTYRAMINE POWDER 4 GM PO ×2 (08:38→17:08)
[2022-06-20] MEDS: FUROSEMIDE 40 MG TABLET 20 MG PO (08:38)
[2022-06-20] MEDS: MEDROXYPROGESTERONE 5 MG TABLET 20 MG PO ×2 (08:39→15:57)
[2022-06-20] MEDS: POTASSIUM CHLORIDE 10 MEQ CAPSULE ER PO (08:39)
[2022-06-20] MEDS: LOPERAMIDE HCL 2 MG CAPSULE PO (08:39)
[2022-06-20] MEDS: METOPROLOL TARTRATE 100 MG TABLET PO ×2 (08:39→15:57)
[2022-06-20] MEDS: LACTOBACILLUS ACIDOPHILUS 1 TABLET 1 TAB PO ×3 (08:39→17:08)
[2022-06-20] MEDS: SPIRONOLACTONE 25 MG TABLET PO (08:40)
[2022-06-20] MEDS: SERTRALINE 50 MG TABLET PO (08:40)
[2022-06-20] MEDS: APIXABAN 5 MG TABLET PO ×2 (08:40→20:42)
[2022-06-20 08:45] VITALS: PULSE 88
[2022-06-20] MEDS: DIGOXIN 250 MCG TABLET PO (08:45)
[2022-06-20] MEDS: MELATONIN 3 MG TABLET 6 MG PO (20:42)
[2022-06-20 21:18] VITALS: BP 96/68; PULSE 69; RESP 18; TEMP 37.6; O2SAT 100
[2022-06-21] MEDS: METOPROLOL TARTRATE 100 MG TABLET PO ×2 (08:27→16:49)
[2022-06-21] MEDS: CHOLESTYRAMINE POWDER 4 GM PO ×2 (08:27→17:08)
[2022-06-21] MEDS: FUROSEMIDE 40 MG TABLET 20 MG PO (08:27)
[2022-06-21] MEDS: POTASSIUM CHLORIDE 10 MEQ CAPSULE ER PO (08:27)
[2022-06-21] MEDS: LOPERAMIDE HCL 2 MG CAPSULE PO (08:27)
[2022-06-21] MEDS: FERROUS SULFATE 325 MG TABLET PO (08:27)
[2022-06-21] MEDS: APIXABAN 5 MG TABLET PO ×2 (08:28→20:09)
[2022-06-21] MEDS: LACTOBACILLUS ACIDOPHILUS 1 TABLET 1 TAB PO ×3 (08:28→17:08)
[2022-06-21] MEDS: SPIRONOLACTONE 25 MG TABLET PO (08:28)
[2022-06-21] MEDS: SERTRALINE 50 MG TABLET PO (08:28)
[2022-06-21] MEDS: MEDROXYPROGESTERONE 5 MG TABLET 20 MG PO ×2 (08:28→16:49)
[2022-06-21 08:30] VITALS: PULSE 72
[2022-06-21] MEDS: DIGOXIN 250 MCG TABLET PO (08:30)
[2022-06-21] MEDS: MELATONIN 3 MG TABLET 6 MG PO (20:09)
[2022-06-22 08:28] VITALS: PULSE 70
[2022-06-22] MEDS: CHOLESTYRAMINE POWDER 4 GM PO ×2 (08:28→17:23)
[2022-06-22] MEDS: LACTOBACILLUS ACIDOPHILUS 1 TABLET 1 TAB PO ×3 (08:28→17:23)
[2022-06-22] MEDS: FERROUS SULFATE 325 MG TABLET PO (08:28)
[2022-06-22] MEDS: METOPROLOL TARTRATE 100 MG TABLET PO ×2 (08:28→17:10)
[2022-06-22] MEDS: MEDROXYPROGESTERONE 5 MG TABLET 20 MG PO ×2 (08:28→17:10)
[2022-06-22] MEDS: FUROSEMIDE 40 MG TABLET 20 MG PO (08:28)
[2022-06-22] MEDS: SERTRALINE 50 MG TABLET PO (08:28)
[2022-06-22] MEDS: LOPERAMIDE HCL 2 MG CAPSULE PO (08:28)
[2022-06-22] MEDS: SPIRONOLACTONE 25 MG TABLET PO (08:28)
[2022-06-22] MEDS: DIGOXIN 250 MCG TABLET PO (08:28)
[2022-06-22] MEDS: POTASSIUM CHLORIDE 10 MEQ CAPSULE ER PO (08:28)
[2022-06-22] MEDS: APIXABAN 5 MG TABLET PO ×2 (08:32→20:18)
--- NOTE | 2022-06-22 13:08 | REH.PT ---
Re-checked with pt to see if she is ready to try sit>stand transfers at hand rail.? Not ready for PT at this time.? Will check in on pt again in next week.
[2022-06-22] MEDS: MELATONIN 3 MG TABLET 6 MG PO (20:18)
[2022-06-23] MEDS: FUROSEMIDE 40 MG TABLET 20 MG PO (08:00)
[2022-06-23] MEDS: LOPERAMIDE HCL 2 MG CAPSULE PO (08:00)
[2022-06-23] MEDS: CHOLESTYRAMINE POWDER 4 GM PO ×2 (08:00→17:03)
[2022-06-23] MEDS: METOPROLOL TARTRATE 100 MG TABLET PO ×2 (08:00→15:05)
[2022-06-23] MEDS: FERROUS SULFATE 325 MG TABLET PO (08:00)
[2022-06-23] MEDS: LACTOBACILLUS ACIDOPHILUS 1 TABLET 1 TAB PO ×3 (08:01→17:03)
[2022-06-23] MEDS: MEDROXYPROGESTERONE 5 MG TABLET 20 MG PO ×2 (08:01→15:05)
[2022-06-23] MEDS: POTASSIUM CHLORIDE 10 MEQ CAPSULE ER PO (08:01)
[2022-06-23 08:07] VITALS: PULSE 74
[2022-06-23] MEDS: DIGOXIN 250 MCG TABLET PO (08:07)
[2022-06-23] MEDS: APIXABAN 5 MG TABLET PO ×2 (08:07→20:00)
[2022-06-23] MEDS: SPIRONOLACTONE 25 MG TABLET PO (08:07)
[2022-06-23] MEDS: SERTRALINE 50 MG TABLET PO (08:07)
[2022-06-23 10:02] VITALS: BMI 46.8
--- NOTE | 2022-06-23 12:55 | PC.NURSE ---
Recert Visit: Resident seen by TELEVISION SERVICERJulieta. Orders reviewed and renewed for 45 days with no changes.
[2022-06-23] MEDS: MELATONIN 3 MG TABLET 6 MG PO (20:00)
[2022-06-24] MEDS: MEDROXYPROGESTERONE 5 MG TABLET 20 MG PO ×2 (08:42→15:50)
[2022-06-24] MEDS: CHOLESTYRAMINE POWDER 4 GM PO ×2 (08:42→17:21)
[2022-06-24] MEDS: FERROUS SULFATE 325 MG TABLET PO (08:42)
[2022-06-24] MEDS: LACTOBACILLUS ACIDOPHILUS 1 TABLET 1 TAB PO ×3 (08:42→17:21)
[2022-06-24] MEDS: FUROSEMIDE 40 MG TABLET 20 MG PO (08:42)
[2022-06-24] MEDS: METOPROLOL TARTRATE 100 MG TABLET PO ×2 (08:42→15:50)
[2022-06-24] MEDS: POTASSIUM CHLORIDE 10 MEQ CAPSULE ER PO (08:42)
[2022-06-24] MEDS: LOPERAMIDE HCL 2 MG CAPSULE PO (08:42)
[2022-06-24] MEDS: APIXABAN 5 MG TABLET PO ×2 (08:43→20:32)
[2022-06-24] MEDS: SPIRONOLACTONE 25 MG TABLET PO (08:43)
[2022-06-24] MEDS: SERTRALINE 50 MG TABLET PO (08:43)
[2022-06-24 08:45] VITALS: PULSE 72
[2022-06-24] MEDS: DIGOXIN 250 MCG TABLET PO (08:45)
[2022-06-24] MEDS: MELATONIN 3 MG TABLET 6 MG PO (20:32)
[2022-06-25] MEDS: FUROSEMIDE 40 MG TABLET 20 MG PO (08:29)
[2022-06-25] MEDS: CHOLESTYRAMINE POWDER 4 GM PO ×2 (08:29→17:19)
[2022-06-25] MEDS: FERROUS SULFATE 325 MG TABLET PO (08:29)
[2022-06-25] MEDS: LOPERAMIDE HCL 2 MG CAPSULE PO (08:30)
[2022-06-25] MEDS: POTASSIUM CHLORIDE 10 MEQ CAPSULE ER PO (08:30)
[2022-06-25 08:31] VITALS: PULSE 72
[2022-06-25] MEDS: LACTOBACILLUS ACIDOPHILUS 1 TABLET 1 TAB PO ×3 (08:31→17:19)
[2022-06-25] MEDS: METOPROLOL TARTRATE 100 MG TABLET PO ×2 (08:31→16:04)
[2022-06-25] MEDS: MEDROXYPROGESTERONE 5 MG TABLET 20 MG PO ×2 (08:31→16:04)
[2022-06-25] MEDS: DIGOXIN 250 MCG TABLET PO (08:31)
[2022-06-25] MEDS: SPIRONOLACTONE 25 MG TABLET PO (08:31)
[2022-06-25] MEDS: SERTRALINE 50 MG TABLET PO (08:35)
[2022-06-25] MEDS: APIXABAN 5 MG TABLET PO ×2 (08:35→20:20)
[2022-06-25 10:17] VITALS: BMI 46.8
[2022-06-25] MEDS: MELATONIN 3 MG TABLET 6 MG PO (19:47)
--- NOTE | 2022-06-26 01:57 | PC.NURSE ---
WEEKLY CHARTING - WEEK 4: Vital signs reviewed - no concerns. Temporary and comprehensive care plan reviewed - no change. No behavioral concerns documented in the last month. Receives sertraline 50mg daily and melatonin 6mg at HS with no adverse drug effects noted. Able to utilize call light appropriately. Communicates needs verbally. No hearing or visual impairment. Cognitively intact. Medications administered by licensed nurse.?Keeps Biotene at bedside for self-administration. Health status stable at this time.
--- NOTE | 2022-06-26 07:17 | PC.NURSE ---
Weekly Charting - Week 4: Comprehensive and temporary care plan reviewed. No changes made & nothing added to temporary care plan. No changes noted in communication, hearing, vision, or orientation. She does communicate needs & use the call light. Hearing and vision fine. Is cognitively intact. Vital signs no concerns at this time. Weights stable @ 273's. Weights monitored 3x/week and will have VOLUNTEER SERVICES ASSISTANT evaluate. Nurse administers all medications except for Biotene spray which she can self administer and kept with her in room. Health condition stable. Mood/Behavior: No issues. Continues on Zoloft 50mg daily and Melatonin 6 mg @ HS with no adverse effects noted. No changes in medication.
[2022-06-26 08:15] VITALS: PULSE 74
[2022-06-26] MEDS: MEDROXYPROGESTERONE 5 MG TABLET 20 MG PO ×2 (08:15→16:15)
[2022-06-26] MEDS: SERTRALINE 50 MG TABLET PO (08:15)
[2022-06-26] MEDS: METOPROLOL TARTRATE 100 MG TABLET PO ×2 (08:15→16:15)
[2022-06-26] MEDS: FUROSEMIDE 40 MG TABLET 20 MG PO (08:15)
[2022-06-26] MEDS: CHOLESTYRAMINE POWDER 4 GM PO ×2 (08:15→17:26)
[2022-06-26] MEDS: DIGOXIN 250 MCG TABLET PO (08:15)
[2022-06-26] MEDS: LACTOBACILLUS ACIDOPHILUS 1 TABLET 1 TAB PO ×3 (08:15→17:26)
[2022-06-26] MEDS: LOPERAMIDE HCL 2 MG CAPSULE PO (08:15)
[2022-06-26] MEDS: SPIRONOLACTONE 25 MG TABLET PO (08:15)
[2022-06-26] MEDS: POTASSIUM CHLORIDE 10 MEQ CAPSULE ER PO (08:15)
[2022-06-26] MEDS: APIXABAN 5 MG TABLET PO ×2 (08:15→20:45)
[2022-06-26] MEDS: FERROUS SULFATE 325 MG TABLET PO (08:15)
[2022-06-27 08:19] VITALS: PULSE 70
[2022-06-27] MEDS: CHOLESTYRAMINE POWDER 4 GM PO ×2 (08:19→17:16)
[2022-06-27] MEDS: DIGOXIN 250 MCG TABLET PO (08:19)
[2022-06-27] MEDS: FERROUS SULFATE 325 MG TABLET PO (08:19)
[2022-06-27] MEDS: SERTRALINE 50 MG TABLET PO (08:20)
[2022-06-27] MEDS: METOPROLOL TARTRATE 100 MG TABLET PO ×2 (08:20→15:43)
[2022-06-27] MEDS: LOPERAMIDE HCL 2 MG CAPSULE PO (08:20)
[2022-06-27] MEDS: SPIRONOLACTONE 25 MG TABLET PO (08:20)
[2022-06-27] MEDS: FUROSEMIDE 40 MG TABLET 20 MG PO (08:20)
[2022-06-27] MEDS: MEDROXYPROGESTERONE 5 MG TABLET 20 MG PO ×2 (08:20→15:43)
[2022-06-27] MEDS: LACTOBACILLUS ACIDOPHILUS 1 TABLET 1 TAB PO ×3 (08:20→17:16)
[2022-06-27] MEDS: POTASSIUM CHLORIDE 10 MEQ CAPSULE ER PO (08:20)
[2022-06-27] MEDS: APIXABAN 5 MG TABLET PO ×2 (09:22→20:18)
[2022-06-27 09:49] VITALS: BMI 46.8
[2022-06-27 15:00] VITALS: BP 103/64; PULSE 64; RESP 18; TEMP 36.9; O2SAT 99
[2022-06-27] MEDS: MELATONIN 3 MG TABLET 6 MG PO (20:18)
[2022-06-28 08:23] VITALS: PULSE 74
[2022-06-28] MEDS: LOPERAMIDE HCL 2 MG CAPSULE PO (08:23)
[2022-06-28] MEDS: FERROUS SULFATE 325 MG TABLET PO (08:23)
[2022-06-28] MEDS: METOPROLOL TARTRATE 100 MG TABLET PO ×2 (08:23→15:05)
[2022-06-28] MEDS: FUROSEMIDE 40 MG TABLET 20 MG PO (08:23)
[2022-06-28] MEDS: DIGOXIN 250 MCG TABLET PO (08:23)
[2022-06-28] MEDS: CHOLESTYRAMINE POWDER 4 GM PO ×2 (08:23→17:29)
[2022-06-28] MEDS: SPIRONOLACTONE 25 MG TABLET PO (08:24)
[2022-06-28] MEDS: MEDROXYPROGESTERONE 5 MG TABLET 20 MG PO ×2 (08:24→15:05)
[2022-06-28] MEDS: LACTOBACILLUS ACIDOPHILUS 1 TABLET 1 TAB PO ×3 (08:24→17:29)
[2022-06-28] MEDS: POTASSIUM CHLORIDE 10 MEQ CAPSULE ER PO (08:24)
[2022-06-28] MEDS: APIXABAN 5 MG TABLET PO ×2 (08:24→21:44)
[2022-06-28] MEDS: SERTRALINE 50 MG TABLET PO (08:24)
[2022-06-28] MEDS: MELATONIN 3 MG TABLET 6 MG PO (21:44)
[2022-06-29 08:08] VITALS: PULSE 68
[2022-06-29] MEDS: FUROSEMIDE 40 MG TABLET 20 MG PO (08:08)
[2022-06-29] MEDS: DIGOXIN 250 MCG TABLET PO (08:08)
[2022-06-29] MEDS: CHOLESTYRAMINE POWDER 4 GM PO ×2 (08:08→17:25)
[2022-06-29] MEDS: LOPERAMIDE HCL 2 MG CAPSULE PO (08:08)
[2022-06-29] MEDS: METOPROLOL TARTRATE 100 MG TABLET PO ×2 (08:08→15:56)
[2022-06-29] MEDS: FERROUS SULFATE 325 MG TABLET PO (08:08)
[2022-06-29] MEDS: LACTOBACILLUS ACIDOPHILUS 1 TABLET 1 TAB PO ×3 (08:09→16:49)
[2022-06-29] MEDS: SERTRALINE 50 MG TABLET PO (08:09)
[2022-06-29] MEDS: MEDROXYPROGESTERONE 5 MG TABLET 20 MG PO ×2 (08:09→15:57)
[2022-06-29] MEDS: POTASSIUM CHLORIDE 10 MEQ CAPSULE ER PO (08:09)
[2022-06-29] MEDS: SPIRONOLACTONE 25 MG TABLET PO (08:09)
[2022-06-29] MEDS: APIXABAN 5 MG TABLET PO ×2 (09:19→20:43)
[2022-06-29] MEDS: MELATONIN 3 MG TABLET 6 MG PO (20:43)
[2022-06-30 07:00] VITALS: BMI 46.8
[2022-06-30] MEDS: CHOLESTYRAMINE POWDER 4 GM PO ×2 (08:30→17:06)
[2022-06-30] MEDS: FERROUS SULFATE 325 MG TABLET PO (08:30)
[2022-06-30] MEDS: METOPROLOL TARTRATE 100 MG TABLET PO ×2 (08:31→16:18)
[2022-06-30] MEDS: POTASSIUM CHLORIDE 10 MEQ CAPSULE ER PO (08:31)
[2022-06-30] MEDS: LOPERAMIDE HCL 2 MG CAPSULE PO (08:31)
[2022-06-30] MEDS: FUROSEMIDE 40 MG TABLET 20 MG PO (08:31)
[2022-06-30] MEDS: SPIRONOLACTONE 25 MG TABLET PO (08:32)
[2022-06-30] MEDS: MEDROXYPROGESTERONE 5 MG TABLET 20 MG PO ×2 (08:32→16:19)
[2022-06-30] MEDS: SERTRALINE 50 MG TABLET PO (08:32)
[2022-06-30] MEDS: APIXABAN 5 MG TABLET PO ×2 (08:32→20:11)
[2022-06-30] MEDS: LACTOBACILLUS ACIDOPHILUS 1 TABLET 1 TAB PO ×3 (08:32→16:47)
[2022-06-30 08:35] VITALS: PULSE 72
[2022-06-30] MEDS: DIGOXIN 250 MCG TABLET PO (08:35)
[2022-06-30] MEDS: MELATONIN 3 MG TABLET 6 MG PO (20:11)
[2022-07-01] MEDS: CHOLESTYRAMINE POWDER 4 GM PO ×2 (08:28→17:10)
[2022-07-01 08:29] VITALS: PULSE 70
[2022-07-01] MEDS: POTASSIUM CHLORIDE 10 MEQ CAPSULE ER PO (08:29)
[2022-07-01] MEDS: LOPERAMIDE HCL 2 MG CAPSULE PO (08:29)
[2022-07-01] MEDS: DIGOXIN 250 MCG TABLET PO (08:29)
[2022-07-01] MEDS: FERROUS SULFATE 325 MG TABLET PO (08:29)
[2022-07-01] MEDS: METOPROLOL TARTRATE 100 MG TABLET PO ×2 (08:29→16:03)
[2022-07-01] MEDS: FUROSEMIDE 40 MG TABLET 20 MG PO (08:29)
[2022-07-01] MEDS: LACTOBACILLUS ACIDOPHILUS 1 TABLET 1 TAB PO ×3 (08:30→17:10)
[2022-07-01] MEDS: MEDROXYPROGESTERONE 5 MG TABLET 20 MG PO ×2 (08:30→16:03)
[2022-07-01] MEDS: SERTRALINE 50 MG TABLET PO (08:31)
[2022-07-01] MEDS: APIXABAN 5 MG TABLET PO ×2 (08:31→20:00)
[2022-07-01] MEDS: SPIRONOLACTONE 25 MG TABLET PO (08:31)
[2022-07-01] MEDS: MELATONIN 3 MG TABLET 6 MG PO (20:00)
[2022-07-02 08:10] VITALS: PULSE 72
[2022-07-02] MEDS: METOPROLOL TARTRATE 100 MG TABLET PO ×2 (08:10→16:21)
[2022-07-02] MEDS: FUROSEMIDE 40 MG TABLET 20 MG PO (08:10)
[2022-07-02] MEDS: CHOLESTYRAMINE POWDER 4 GM PO ×2 (08:10→17:14)
[2022-07-02] MEDS: LOPERAMIDE HCL 2 MG CAPSULE PO (08:10)
[2022-07-02] MEDS: LACTOBACILLUS ACIDOPHILUS 1 TABLET 1 TAB PO ×3 (08:10→17:14)
[2022-07-02] MEDS: FERROUS SULFATE 325 MG TABLET PO (08:10)
[2022-07-02] MEDS: SERTRALINE 50 MG TABLET PO (08:10)
[2022-07-02] MEDS: DIGOXIN 250 MCG TABLET PO (08:10)
[2022-07-02] MEDS: SPIRONOLACTONE 25 MG TABLET PO (08:10)
[2022-07-02] MEDS: POTASSIUM CHLORIDE 10 MEQ CAPSULE ER PO (08:10)
[2022-07-02] MEDS: MEDROXYPROGESTERONE 5 MG TABLET 20 MG PO ×2 (08:10→16:21)
[2022-07-02] MEDS: APIXABAN 5 MG TABLET PO ×2 (09:22→20:02)
[2022-07-02 09:49] VITALS: BMI 46.7
--- NOTE | 2022-07-02 11:14 | PC.NURSE ---
Order: Loratadine 10 mg daily by Julieta BAEZ per resident request.
--- NOTE | 2022-07-02 11:46 | PC.NURSE ---
Weights: STONE PLANER, Julieta here. Requested to evaluate weights. Continue 3x/week monitoring d/t weight loss.
--- NOTE | 2022-07-02 13:23 | REH.PT ---
Pt ready to try standing today with film writer. Able to transfer sit>stand from recliner X 4 with min A and verbal cueing for technique. Pt able to stand at a 2ww for 30-60 sec X 4 with cga. Pt ready to try advancing mobility with PT. Requested PT Eval and Treat orders from .
--- NOTE | 2022-07-02 14:57 | PC.NURSE ---
Spoke to resident about scheduling gynecology consult for postmenopausal bleeding/uterine fibroids. 2 weeks ago resident had asked that nurse come back in a couple weeks to discuss scheduling as she wanted to think about things longer. Came back today and resident states she wants to continue to wait and would like to discuss after she has completed therapy in another couple weeks. Nursing notified.
[2022-07-02] MEDS: MELATONIN 3 MG TABLET 6 MG PO (19:48)
--- NOTE | 2022-07-03 01:53 | PC.NURSE ---
WEEKLY CHARTING - WEEK 1: Vital signs reviewed - no concerns. Temporary and comprehensive care plan reviewed - no change. Hx of knee pain. Receives no scheduled analgesia. Order for acetaminophen 975mg Q8 hours PRN which has been utilized x3 in the last month. Assist of 1-2 with dressing and bathing. Completes grooming tasks and oral cares independently after set-up. Receives a regular diet with regular textures and thin liquids. Receives double protein portions. Eats independently. No chewing/swallowing problems.
[2022-07-03] MEDS: CHOLESTYRAMINE POWDER 4 GM PO ×2 (08:08→17:03)
[2022-07-03] MEDS: FERROUS SULFATE 325 MG TABLET PO (08:08)
[2022-07-03] MEDS: FUROSEMIDE 40 MG TABLET 20 MG PO (08:09)
[2022-07-03] MEDS: LOPERAMIDE HCL 2 MG CAPSULE PO (08:09)
[2022-07-03] MEDS: LACTOBACILLUS ACIDOPHILUS 1 TABLET 1 TAB PO ×3 (08:09→16:37)
[2022-07-03] MEDS: METOPROLOL TARTRATE 100 MG TABLET PO ×2 (08:09→16:17)
[2022-07-03] MEDS: LORATADINE 10 MG TABLET PO (08:09)
[2022-07-03] MEDS: POTASSIUM CHLORIDE 10 MEQ CAPSULE ER PO (08:09)
[2022-07-03] MEDS: SERTRALINE 50 MG TABLET PO (08:10)
[2022-07-03] MEDS: SPIRONOLACTONE 25 MG TABLET PO (08:10)
[2022-07-03] MEDS: MEDROXYPROGESTERONE 5 MG TABLET 20 MG PO ×2 (08:10→16:18)
[2022-07-03] MEDS: APIXABAN 5 MG TABLET PO ×2 (08:10→20:51)
[2022-07-03 08:13] VITALS: PULSE 76
[2022-07-03] MEDS: DIGOXIN 250 MCG TABLET PO (08:13)
--- NOTE | 2022-07-03 11:45 | PC.NURSE ---
[facility] PT to evaluate, RBTO by Julieta BAEZ.
--- NOTE | 2022-07-03 13:24 | PC.NURSE ---
Weekly Charting, Week 1 - ADL's: Comprehensive and temporary care plan reviewed. No changes made, & nothing added to temporary care plan. Resident needs one assist with dressing lower half, is able to do upper half dressing. Staff to apply compression wraps to BLE in AM, remove at HS. Grooming, oral cares, and feeding done independently after set up. Needs 2 assists with bed bath. Is in regular diet, regular texture, thin liquids, double protein portions. No problem with chewing/swallowing reported. Vital signs reviewed. Continue weight monitoring weights 3x/week, & protein supplements. Weights stable at 273 lbs for the past weeks, reviewed by COTTRELL BLOWER. No problems with chewing/swallowing reported. Pain: Has history of knee pain. No complain the past month. Is on no schedule pain medication. Has an order for Tylenol 975mg PRN and has used sparingly. Resident is able to make needs known.
[2022-07-03] MEDS: MELATONIN 3 MG TABLET 6 MG PO (19:32)
[2022-07-04] MEDS: FERROUS SULFATE 325 MG TABLET PO (08:24)
[2022-07-04] MEDS: CHOLESTYRAMINE POWDER 4 GM PO ×2 (08:24→17:00)
[2022-07-04] MEDS: FUROSEMIDE 40 MG TABLET 20 MG PO (08:25)
[2022-07-04] MEDS: METOPROLOL TARTRATE 100 MG TABLET PO ×2 (08:25→16:32)
[2022-07-04] MEDS: LOPERAMIDE HCL 2 MG CAPSULE PO (08:25)
[2022-07-04] MEDS: POTASSIUM CHLORIDE 10 MEQ CAPSULE ER PO (08:25)
[2022-07-04] MEDS: LORATADINE 10 MG TABLET PO (08:25)
[2022-07-04] MEDS: SPIRONOLACTONE 25 MG TABLET PO (08:26)
[2022-07-04] MEDS: SERTRALINE 50 MG TABLET PO (08:26)
[2022-07-04] MEDS: MEDROXYPROGESTERONE 5 MG TABLET 20 MG PO ×2 (08:26→16:33)
[2022-07-04] MEDS: LACTOBACILLUS ACIDOPHILUS 1 TABLET 1 TAB PO ×3 (08:26→17:00)
[2022-07-04] MEDS: APIXABAN 5 MG TABLET PO ×2 (08:27→20:19)
[2022-07-04 08:29] VITALS: PULSE 72
[2022-07-04] MEDS: DIGOXIN 250 MCG TABLET PO (08:29)
--- NOTE | 2022-07-04 09:24 | PC.NURSE ---
GIORGIO reports resident had BM yesterday and is therefore not on bowel protocol today.
[2022-07-04 15:00] VITALS: BP 108/66; PULSE 71; RESP 20; TEMP 36.7; O2SAT 98
[2022-07-04] MEDS: MELATONIN 3 MG TABLET 6 MG PO (20:19)
[2022-07-05] MEDS: CHOLESTYRAMINE POWDER 4 GM PO ×2 (08:24→17:10)
[2022-07-05] MEDS: FERROUS SULFATE 325 MG TABLET PO (08:24)
[2022-07-05] MEDS: FUROSEMIDE 40 MG TABLET 20 MG PO (08:24)
[2022-07-05] MEDS: METOPROLOL TARTRATE 100 MG TABLET PO ×2 (08:25→15:24)
[2022-07-05] MEDS: LORATADINE 10 MG TABLET PO (08:25)
[2022-07-05] MEDS: LOPERAMIDE HCL 2 MG CAPSULE PO (08:25)
[2022-07-05] MEDS: POTASSIUM CHLORIDE 10 MEQ CAPSULE ER PO (08:25)
[2022-07-05] MEDS: LACTOBACILLUS ACIDOPHILUS 1 TABLET 1 TAB PO ×3 (08:25→17:10)
[2022-07-05] MEDS: MEDROXYPROGESTERONE 5 MG TABLET 20 MG PO ×2 (08:26→15:24)
[2022-07-05] MEDS: SPIRONOLACTONE 25 MG TABLET PO (08:26)
[2022-07-05] MEDS: SERTRALINE 50 MG TABLET PO (08:26)
[2022-07-05] MEDS: APIXABAN 5 MG TABLET PO ×2 (08:26→20:13)
[2022-07-05 08:30] VITALS: PULSE 83
[2022-07-05] MEDS: DIGOXIN 250 MCG TABLET PO (08:30)
[2022-07-05] MEDS: MELATONIN 3 MG TABLET 6 MG PO (20:13)
[2022-07-06 08:23] VITALS: PULSE 74
[2022-07-06] MEDS: DIGOXIN 250 MCG TABLET PO (08:23)
[2022-07-06] MEDS: LOPERAMIDE HCL 2 MG CAPSULE PO (08:23)
[2022-07-06] MEDS: FERROUS SULFATE 325 MG TABLET PO (08:23)
[2022-07-06] MEDS: METOPROLOL TARTRATE 100 MG TABLET PO ×2 (08:23→16:21)
[2022-07-06] MEDS: FUROSEMIDE 40 MG TABLET 20 MG PO (08:23)
[2022-07-06] MEDS: CHOLESTYRAMINE POWDER 4 GM PO ×2 (08:23→17:09)
[2022-07-06] MEDS: POTASSIUM CHLORIDE 10 MEQ CAPSULE ER PO (08:24)
[2022-07-06] MEDS: APIXABAN 5 MG TABLET PO ×2 (08:24→20:39)
[2022-07-06] MEDS: LACTOBACILLUS ACIDOPHILUS 1 TABLET 1 TAB PO ×3 (08:24→16:37)
[2022-07-06] MEDS: LORATADINE 10 MG TABLET PO (08:24)
[2022-07-06] MEDS: SPIRONOLACTONE 25 MG TABLET PO (08:24)
[2022-07-06] MEDS: MEDROXYPROGESTERONE 5 MG TABLET 20 MG PO ×2 (08:24→16:21)
[2022-07-06] MEDS: SERTRALINE 50 MG TABLET PO (08:24)
[2022-07-06] MEDS: MELATONIN 3 MG TABLET 6 MG PO (19:31)
[2022-07-07] MEDS: FERROUS SULFATE 325 MG TABLET PO (07:53)
[2022-07-07] MEDS: CHOLESTYRAMINE POWDER 4 GM PO ×2 (07:53→17:13)
[2022-07-07] MEDS: FUROSEMIDE 40 MG TABLET 20 MG PO (07:54)
[2022-07-07] MEDS: LORATADINE 10 MG TABLET PO (07:54)
[2022-07-07] MEDS: METOPROLOL TARTRATE 100 MG TABLET PO ×2 (07:54→15:17)
[2022-07-07] MEDS: LOPERAMIDE HCL 2 MG CAPSULE PO (07:54)
[2022-07-07] MEDS: POTASSIUM CHLORIDE 10 MEQ CAPSULE ER PO (07:54)
[2022-07-07] MEDS: LACTOBACILLUS ACIDOPHILUS 1 TABLET 1 TAB PO ×3 (07:58→17:13)
[2022-07-07] MEDS: MEDROXYPROGESTERONE 5 MG TABLET 20 MG PO ×2 (07:58→15:17)
[2022-07-07] MEDS: SPIRONOLACTONE 25 MG TABLET PO (07:58)
[2022-07-07] MEDS: SERTRALINE 50 MG TABLET PO (07:58)
[2022-07-07] MEDS: APIXABAN 5 MG TABLET PO ×2 (08:03→20:25)
[2022-07-07 08:58] VITALS: PULSE 69
[2022-07-07] MEDS: DIGOXIN 250 MCG TABLET PO (08:58)
[2022-07-07 10:18] VITALS: BMI 46.5
[2022-07-07] MEDS: MELATONIN 3 MG TABLET 6 MG PO (20:25)
[2022-07-08] MEDS: FUROSEMIDE 40 MG TABLET 20 MG PO (08:32)
[2022-07-08] MEDS: FERROUS SULFATE 325 MG TABLET PO (08:32)
[2022-07-08] MEDS: METOPROLOL TARTRATE 100 MG TABLET PO ×2 (08:32→16:01)
[2022-07-08] MEDS: LOPERAMIDE HCL 2 MG CAPSULE PO (08:32)
[2022-07-08] MEDS: CHOLESTYRAMINE POWDER 4 GM PO ×2 (08:32→17:26)
[2022-07-08] MEDS: SPIRONOLACTONE 25 MG TABLET PO (08:33)
[2022-07-08] MEDS: POTASSIUM CHLORIDE 10 MEQ CAPSULE ER PO (08:33)
[2022-07-08] MEDS: LORATADINE 10 MG TABLET PO (08:33)
[2022-07-08] MEDS: MEDROXYPROGESTERONE 5 MG TABLET 20 MG PO ×2 (08:33→16:01)
[2022-07-08] MEDS: LACTOBACILLUS ACIDOPHILUS 1 TABLET 1 TAB PO ×3 (08:33→17:26)
[2022-07-08] MEDS: SERTRALINE 50 MG TABLET PO (08:33)
[2022-07-08] MEDS: APIXABAN 5 MG TABLET PO ×2 (08:34→20:25)
[2022-07-08 08:36] VITALS: PULSE 64
[2022-07-08] MEDS: DIGOXIN 250 MCG TABLET PO (08:36)
[2022-07-08] MEDS: MELATONIN 3 MG TABLET 6 MG PO (20:25)
[2022-07-09] MEDS: FERROUS SULFATE 325 MG TABLET PO (08:08)
[2022-07-09] MEDS: CHOLESTYRAMINE POWDER 4 GM PO ×2 (08:08→17:05)
[2022-07-09] MEDS: FUROSEMIDE 40 MG TABLET 20 MG PO (08:09)
[2022-07-09] MEDS: POTASSIUM CHLORIDE 10 MEQ CAPSULE ER PO (08:09)
[2022-07-09] MEDS: LORATADINE 10 MG TABLET PO (08:09)
[2022-07-09] MEDS: LOPERAMIDE HCL 2 MG CAPSULE PO (08:09)
[2022-07-09] MEDS: LACTOBACILLUS ACIDOPHILUS 1 TABLET 1 TAB PO ×3 (08:10→17:05)
[2022-07-09] MEDS: MEDROXYPROGESTERONE 5 MG TABLET 20 MG PO ×2 (08:10→15:16)
[2022-07-09] MEDS: SPIRONOLACTONE 25 MG TABLET PO (08:11)
[2022-07-09] MEDS: APIXABAN 5 MG TABLET PO ×2 (08:11→20:31)
[2022-07-09] MEDS: SERTRALINE 50 MG TABLET PO (08:11)
[2022-07-09 08:18] VITALS: PULSE 68
[2022-07-09] MEDS: METOPROLOL TARTRATE 100 MG TABLET PO ×2 (08:18→15:16)
[2022-07-09] MEDS: DIGOXIN 250 MCG TABLET PO (08:18)
[2022-07-09 13:02] VITALS: BMI 46.8
[2022-07-09] MEDS: MELATONIN 3 MG TABLET 6 MG PO (20:31)
--- NOTE | 2022-07-10 00:53 | PC.NURSE ---
WEEKLY CHARTING WEEK 2 Vital signs reviewed with no concerns. Comprehensive and temporary care plan reviewed with no changes made. Res requires 1 staff assist with the use of EZ Stand for transfer. Has 1/4 side rails to promoted independent bed mobility. Able to propel wheelchair independent in the room. Not ambulatory. Res is a low fall risk. Fall prevention: call light within reach, Bed in low position with brakes on, Wear no slips socks.
[2022-07-10 08:36] VITALS: PULSE 76
[2022-07-10] MEDS: LOPERAMIDE HCL 2 MG CAPSULE PO (08:36)
[2022-07-10] MEDS: DIGOXIN 250 MCG TABLET PO (08:36)
[2022-07-10] MEDS: FUROSEMIDE 40 MG TABLET 20 MG PO (08:36)
[2022-07-10] MEDS: FERROUS SULFATE 325 MG TABLET PO (08:36)
[2022-07-10] MEDS: CHOLESTYRAMINE POWDER 4 GM PO ×2 (08:36→17:06)
[2022-07-10] MEDS: METOPROLOL TARTRATE 100 MG TABLET PO ×2 (08:36→15:45)
[2022-07-10] MEDS: SPIRONOLACTONE 25 MG TABLET PO (08:37)
[2022-07-10] MEDS: MEDROXYPROGESTERONE 5 MG TABLET 20 MG PO ×2 (08:37→15:45)
[2022-07-10] MEDS: LACTOBACILLUS ACIDOPHILUS 1 TABLET 1 TAB PO ×3 (08:37→17:06)
[2022-07-10] MEDS: POTASSIUM CHLORIDE 10 MEQ CAPSULE ER PO (08:37)
[2022-07-10] MEDS: SERTRALINE 50 MG TABLET PO (08:37)
[2022-07-10] MEDS: LORATADINE 10 MG TABLET PO (08:37)
[2022-07-10] MEDS: APIXABAN 5 MG TABLET PO ×2 (09:40→20:29)
--- NOTE | 2022-07-10 11:10 | PC.NURSE ---
Weekly Charting, Week 2 - Mobility:? Comprehensive and temporary care plan reviewed. No changes made, nothing added to temporary care plan. Resident is non ambulatory at this time. Transfers using a medi stand with 1 assist.? Is able to reposition self in bed and chair. Will call for assists as needed. Resident instructed to wheel herself at least once/day. No alarms. Bilateral 1/4 bed rails up at all times to promote independence with bed positioning. Vital signs reviewed, no concerns. Fall: No falls the past month. Is a low fall risk according to assessment done on 05/14/22. Fall interventions: Call light within reach, bed in low position with brakes locked, gripper socks for transfers.
[2022-07-10] MEDS: MELATONIN 3 MG TABLET 6 MG PO (20:29)
[2022-07-11 08:23] VITALS: PULSE 70
[2022-07-11] MEDS: FERROUS SULFATE 325 MG TABLET PO (08:23)
[2022-07-11] MEDS: CHOLESTYRAMINE POWDER 4 GM PO ×2 (08:23→17:12)
[2022-07-11] MEDS: DIGOXIN 250 MCG TABLET PO (08:23)
[2022-07-11] MEDS: LACTOBACILLUS ACIDOPHILUS 1 TABLET 1 TAB PO ×3 (08:24→17:12)
[2022-07-11] MEDS: SPIRONOLACTONE 25 MG TABLET PO (08:24)
[2022-07-11] MEDS: FUROSEMIDE 40 MG TABLET 20 MG PO (08:24)
[2022-07-11] MEDS: SERTRALINE 50 MG TABLET PO (08:24)
[2022-07-11] MEDS: METOPROLOL TARTRATE 100 MG TABLET PO ×2 (08:24→16:09)
[2022-07-11] MEDS: POTASSIUM CHLORIDE 10 MEQ CAPSULE ER PO (08:24)
[2022-07-11] MEDS: MEDROXYPROGESTERONE 5 MG TABLET 20 MG PO ×2 (08:24→16:09)
[2022-07-11] MEDS: LOPERAMIDE HCL 2 MG CAPSULE PO (08:24)
[2022-07-11] MEDS: LORATADINE 10 MG TABLET PO (08:24)
[2022-07-11] MEDS: APIXABAN 5 MG TABLET PO ×2 (08:26→20:26)
[2022-07-11 13:06] VITALS: BMI 46.7
[2022-07-11 15:00] VITALS: BP 114/71; PULSE 66; RESP 20; TEMP 36.4; O2SAT 100
[2022-07-11] MEDS: MELATONIN 3 MG TABLET 6 MG PO (20:26)
[2022-07-11] MEDS: ACETAMINOPHEN 325 MG TABLET 975 MG PO (21:11)
[2022-07-12 08:27] VITALS: PULSE 70
[2022-07-12] MEDS: FERROUS SULFATE 325 MG TABLET PO (08:27)
[2022-07-12] MEDS: DIGOXIN 250 MCG TABLET PO (08:27)
[2022-07-12] MEDS: CHOLESTYRAMINE POWDER 4 GM PO ×2 (08:27→17:25)
[2022-07-12] MEDS: LORATADINE 10 MG TABLET PO (08:28)
[2022-07-12] MEDS: FUROSEMIDE 40 MG TABLET 20 MG PO (08:28)
[2022-07-12] MEDS: LOPERAMIDE HCL 2 MG CAPSULE PO (08:28)
[2022-07-12] MEDS: METOPROLOL TARTRATE 100 MG TABLET PO ×2 (08:28→15:50)
[2022-07-12] MEDS: LACTOBACILLUS ACIDOPHILUS 1 TABLET 1 TAB PO ×3 (08:29→17:25)
[2022-07-12] MEDS: SPIRONOLACTONE 25 MG TABLET PO (08:29)
[2022-07-12] MEDS: SERTRALINE 50 MG TABLET PO (08:29)
[2022-07-12] MEDS: MEDROXYPROGESTERONE 5 MG TABLET 20 MG PO ×2 (08:29→15:50)
[2022-07-12] MEDS: POTASSIUM CHLORIDE 10 MEQ CAPSULE ER PO (08:29)
[2022-07-12] MEDS: APIXABAN 5 MG TABLET PO ×2 (09:22→20:36)
[2022-07-12] MEDS: MELATONIN 3 MG TABLET 6 MG PO (20:36)
[2022-07-13] MEDS: CHOLESTYRAMINE POWDER 4 GM PO ×2 (08:32→17:06)
[2022-07-13] MEDS: FERROUS SULFATE 325 MG TABLET PO (08:32)
[2022-07-13 08:33] VITALS: PULSE 72
[2022-07-13] MEDS: SERTRALINE 50 MG TABLET PO (08:33)
[2022-07-13] MEDS: LORATADINE 10 MG TABLET PO (08:33)
[2022-07-13] MEDS: LACTOBACILLUS ACIDOPHILUS 1 TABLET 1 TAB PO ×3 (08:33→17:09)
[2022-07-13] MEDS: LOPERAMIDE HCL 2 MG CAPSULE PO (08:33)
[2022-07-13] MEDS: SPIRONOLACTONE 25 MG TABLET PO (08:33)
[2022-07-13] MEDS: FUROSEMIDE 40 MG TABLET 20 MG PO (08:33)
[2022-07-13] MEDS: METOPROLOL TARTRATE 100 MG TABLET PO ×2 (08:33→16:40)
[2022-07-13] MEDS: POTASSIUM CHLORIDE 10 MEQ CAPSULE ER PO (08:33)
[2022-07-13] MEDS: MEDROXYPROGESTERONE 5 MG TABLET 20 MG PO ×2 (08:33→16:40)
[2022-07-13] MEDS: DIGOXIN 250 MCG TABLET PO (08:33)
[2022-07-13] MEDS: APIXABAN 5 MG TABLET PO ×2 (09:38→20:12)
[2022-07-13] MEDS: MELATONIN 3 MG TABLET 6 MG PO (20:12)
[2022-07-14] MEDS: FERROUS SULFATE 325 MG TABLET PO (08:27)
[2022-07-14] MEDS: FUROSEMIDE 40 MG TABLET 20 MG PO (08:27)
[2022-07-14] MEDS: CHOLESTYRAMINE POWDER 4 GM PO ×2 (08:27→17:00)
[2022-07-14] MEDS: METOPROLOL TARTRATE 100 MG TABLET PO ×2 (08:28→16:31)
[2022-07-14] MEDS: POTASSIUM CHLORIDE 10 MEQ CAPSULE ER PO (08:28)
[2022-07-14] MEDS: LOPERAMIDE HCL 2 MG CAPSULE PO (08:28)
[2022-07-14] MEDS: LORATADINE 10 MG TABLET PO (08:28)
[2022-07-14] MEDS: MEDROXYPROGESTERONE 5 MG TABLET 20 MG PO ×2 (08:29→16:30)
[2022-07-14] MEDS: SERTRALINE 50 MG TABLET PO (08:29)
[2022-07-14] MEDS: SPIRONOLACTONE 25 MG TABLET PO (08:29)
[2022-07-14] MEDS: LACTOBACILLUS ACIDOPHILUS 1 TABLET 1 TAB PO ×3 (08:29→17:00)
[2022-07-14] MEDS: APIXABAN 5 MG TABLET PO ×2 (08:30→20:14)
[2022-07-14 08:36] VITALS: PULSE 64
[2022-07-14] MEDS: DIGOXIN 250 MCG TABLET PO (08:36)
[2022-07-14 08:37] VITALS: BMI 46.7
--- NOTE | 2022-07-14 10:54 | PC.NURSE ---
Information note: Resident received different mattress today that she is wanting to try out. DON aware.
[2022-07-14] MEDS: MELATONIN 3 MG TABLET 6 MG PO (20:14)
[2022-07-15] MEDS: CHOLESTYRAMINE POWDER 4 GM PO ×2 (08:42→17:17)
[2022-07-15] MEDS: LOPERAMIDE HCL 2 MG CAPSULE PO (08:42)
[2022-07-15] MEDS: METOPROLOL TARTRATE 100 MG TABLET PO ×2 (08:42→15:55)
[2022-07-15] MEDS: LORATADINE 10 MG TABLET PO (08:42)
[2022-07-15] MEDS: FUROSEMIDE 40 MG TABLET 20 MG PO (08:42)
[2022-07-15] MEDS: FERROUS SULFATE 325 MG TABLET PO (08:42)
[2022-07-15] MEDS: SERTRALINE 50 MG TABLET PO (08:43)
[2022-07-15] MEDS: MEDROXYPROGESTERONE 5 MG TABLET 20 MG PO ×2 (08:43→15:55)
[2022-07-15] MEDS: SPIRONOLACTONE 25 MG TABLET PO (08:43)
[2022-07-15] MEDS: APIXABAN 5 MG TABLET PO ×2 (08:43→20:51)
[2022-07-15] MEDS: POTASSIUM CHLORIDE 10 MEQ CAPSULE ER PO (08:43)
[2022-07-15] MEDS: LACTOBACILLUS ACIDOPHILUS 1 TABLET 1 TAB PO ×3 (08:44→17:17)
[2022-07-15 08:47] VITALS: PULSE 72
[2022-07-15] MEDS: DIGOXIN 250 MCG TABLET PO (08:47)
[2022-07-15] MEDS: MELATONIN 3 MG TABLET 6 MG PO (20:51)
[2022-07-15] MEDS: ACETAMINOPHEN 325 MG TABLET 975 MG PO (22:38)
[2022-07-16] MEDS: CHOLESTYRAMINE POWDER 4 GM PO ×2 (08:10→17:26)
[2022-07-16 08:11] VITALS: PULSE 68
[2022-07-16] MEDS: LACTOBACILLUS ACIDOPHILUS 1 TABLET 1 TAB PO ×3 (08:11→17:26)
[2022-07-16] MEDS: POTASSIUM CHLORIDE 10 MEQ CAPSULE ER PO (08:11)
[2022-07-16] MEDS: FUROSEMIDE 40 MG TABLET 20 MG PO (08:11)
[2022-07-16] MEDS: FERROUS SULFATE 325 MG TABLET PO (08:11)
[2022-07-16] MEDS: METOPROLOL TARTRATE 100 MG TABLET PO ×2 (08:11→15:43)
[2022-07-16] MEDS: SPIRONOLACTONE 25 MG TABLET PO (08:11)
[2022-07-16] MEDS: MEDROXYPROGESTERONE 5 MG TABLET 20 MG PO ×2 (08:11→15:43)
[2022-07-16] MEDS: LOPERAMIDE HCL 2 MG CAPSULE PO (08:11)
[2022-07-16] MEDS: SERTRALINE 50 MG TABLET PO (08:11)
[2022-07-16] MEDS: DIGOXIN 250 MCG TABLET PO (08:11)
[2022-07-16] MEDS: LORATADINE 10 MG TABLET PO (08:11)
[2022-07-16] MEDS: APIXABAN 5 MG TABLET PO ×2 (09:24→20:16)
[2022-07-16 10:36] VITALS: BMI 46.7
[2022-07-16] MEDS: MELATONIN 3 MG TABLET 6 MG PO (20:16)
--- NOTE | 2022-07-17 01:50 | PC.NURSE ---
WEEKLY CHARTING WEEK 3: Vital signs reviewed with no concerns. Comprehensive and temporary care plan reviewed with no changes made. Skin is clear and intact with no concerns. Skin check every bath days and during cares. Toileting: Res occasional incontinent of bladder, continent of bowel. Res put the call light when needed to use the toilet. Use Easy stand to/from toilet. Alie cares, incontinent pad, and clothing adjustment managed by staff. Wears XX large briefs.
[2022-07-17 08:47] VITALS: PULSE 72
[2022-07-17] MEDS: DIGOXIN 250 MCG TABLET PO (08:47)
[2022-07-17] MEDS: FERROUS SULFATE 325 MG TABLET PO (08:47)
[2022-07-17] MEDS: LOPERAMIDE HCL 2 MG CAPSULE PO (08:47)
[2022-07-17] MEDS: CHOLESTYRAMINE POWDER 4 GM PO ×2 (08:47→17:33)
[2022-07-17] MEDS: FUROSEMIDE 40 MG TABLET 20 MG PO (08:47)
[2022-07-17] MEDS: LACTOBACILLUS ACIDOPHILUS 1 TABLET 1 TAB PO ×3 (08:48→17:33)
[2022-07-17] MEDS: LORATADINE 10 MG TABLET PO (08:48)
[2022-07-17] MEDS: METOPROLOL TARTRATE 100 MG TABLET PO ×2 (08:48→15:18)
[2022-07-17] MEDS: POTASSIUM CHLORIDE 10 MEQ CAPSULE ER PO (08:48)
[2022-07-17] MEDS: MEDROXYPROGESTERONE 5 MG TABLET 20 MG PO ×2 (08:48→15:18)
[2022-07-17] MEDS: SPIRONOLACTONE 25 MG TABLET PO (08:50)
[2022-07-17] MEDS: SERTRALINE 50 MG TABLET PO (08:51)
[2022-07-17] MEDS: APIXABAN 5 MG TABLET PO ×2 (08:51→20:04)
--- NOTE | 2022-07-17 10:40 | PC.NURSE ---
Weekly Charting, Week 3 - Toileting: Comprehensive and temporary care plan reviewed. No changes made, nothing added to temporary care plan. Resident dribbles urine. Continent of bowels. Staff toilet per her request using the medi stand for transfers, 1 assist. Vital signs reviewed. Still on weight monitoring 3x/week , stable at 271-273 lbs. REFINERY OPERATOR CRUDE UNIT to review. Skin: No issues at this time. Skin is checked routinely during cares and on bath days.
[2022-07-17] MEDS: MELATONIN 3 MG TABLET 6 MG PO (19:53)
[2022-07-18] MEDS: LOPERAMIDE HCL 2 MG CAPSULE PO (08:31)
[2022-07-18] MEDS: FERROUS SULFATE 325 MG TABLET PO (08:31)
[2022-07-18] MEDS: CHOLESTYRAMINE POWDER 4 GM PO ×2 (08:31→17:09)
[2022-07-18] MEDS: FUROSEMIDE 40 MG TABLET 20 MG PO (08:31)
[2022-07-18] MEDS: SPIRONOLACTONE 25 MG TABLET PO (08:32)
[2022-07-18] MEDS: APIXABAN 5 MG TABLET PO ×2 (08:32→20:21)
[2022-07-18] MEDS: SERTRALINE 50 MG TABLET PO (08:32)
[2022-07-18] MEDS: LACTOBACILLUS ACIDOPHILUS 1 TABLET 1 TAB PO ×3 (08:32→17:09)
[2022-07-18] MEDS: POTASSIUM CHLORIDE 10 MEQ CAPSULE ER PO (08:32)
[2022-07-18] MEDS: METOPROLOL TARTRATE 100 MG TABLET PO ×2 (08:32→15:54)
[2022-07-18] MEDS: MEDROXYPROGESTERONE 5 MG TABLET 20 MG PO ×2 (08:32→15:54)
[2022-07-18] MEDS: LORATADINE 10 MG TABLET PO (08:32)
[2022-07-18 08:36] VITALS: PULSE 64
[2022-07-18] MEDS: DIGOXIN 250 MCG TABLET PO (08:36)
--- NOTE | 2022-07-18 13:48 | PC.NURSE ---
Behavior note: Nursing staff attempted to obtain resident's weight per order and assist her with scheduled bath this afternoon though resident refusing because a specific GIORGIO will not be working this evening, citing that she only wants bath done by this specific GIORGIO. Will update shamar staff.
[2022-07-18 15:00] VITALS: BP 111/71; PULSE 67; TEMP 36.4; O2SAT 100
[2022-07-18] MEDS: MELATONIN 3 MG TABLET 6 MG PO (20:21)
[2022-07-19] MEDS: CHOLESTYRAMINE POWDER 4 GM PO ×2 (08:53→17:01)
[2022-07-19] MEDS: FERROUS SULFATE 325 MG TABLET PO (08:54)
[2022-07-19] MEDS: LOPERAMIDE HCL 2 MG CAPSULE PO (08:54)
[2022-07-19] MEDS: FUROSEMIDE 40 MG TABLET 20 MG PO (08:54)
[2022-07-19] MEDS: METOPROLOL TARTRATE 100 MG TABLET PO ×2 (08:54→15:42)
[2022-07-19] MEDS: LACTOBACILLUS ACIDOPHILUS 1 TABLET 1 TAB PO ×3 (08:55→17:01)
[2022-07-19] MEDS: POTASSIUM CHLORIDE 10 MEQ CAPSULE ER PO (08:55)
[2022-07-19] MEDS: SPIRONOLACTONE 25 MG TABLET PO (08:55)
[2022-07-19] MEDS: MEDROXYPROGESTERONE 5 MG TABLET 20 MG PO ×2 (08:55→15:42)
[2022-07-19] MEDS: LORATADINE 10 MG TABLET PO (08:55)
[2022-07-19] MEDS: SERTRALINE 50 MG TABLET PO (08:55)
[2022-07-19] MEDS: APIXABAN 5 MG TABLET PO ×2 (08:56→20:04)
[2022-07-19 09:00] VITALS: PULSE 72
[2022-07-19] MEDS: DIGOXIN 250 MCG TABLET PO (09:00)
[2022-07-19] MEDS: MELATONIN 3 MG TABLET 6 MG PO (20:04)
[2022-07-20 08:31] VITALS: PULSE 70
[2022-07-20] MEDS: CHOLESTYRAMINE POWDER 4 GM PO ×2 (08:31→17:08)
[2022-07-20] MEDS: FERROUS SULFATE 325 MG TABLET PO (08:31)
[2022-07-20] MEDS: DIGOXIN 250 MCG TABLET PO (08:31)
[2022-07-20] MEDS: MEDROXYPROGESTERONE 5 MG TABLET 20 MG PO ×2 (08:32→16:11)
[2022-07-20] MEDS: SERTRALINE 50 MG TABLET PO (08:32)
[2022-07-20] MEDS: LORATADINE 10 MG TABLET PO (08:32)
[2022-07-20] MEDS: FUROSEMIDE 40 MG TABLET 20 MG PO (08:32)
[2022-07-20] MEDS: SPIRONOLACTONE 25 MG TABLET PO (08:32)
[2022-07-20] MEDS: POTASSIUM CHLORIDE 10 MEQ CAPSULE ER PO (08:32)
[2022-07-20] MEDS: LACTOBACILLUS ACIDOPHILUS 1 TABLET 1 TAB PO ×3 (08:32→16:41)
[2022-07-20] MEDS: METOPROLOL TARTRATE 100 MG TABLET PO ×2 (08:32→16:11)
[2022-07-20] MEDS: APIXABAN 5 MG TABLET PO ×2 (08:32→20:01)
[2022-07-20] MEDS: LOPERAMIDE HCL 2 MG CAPSULE PO (08:32)
[2022-07-20] MEDS: MELATONIN 3 MG TABLET 6 MG PO (20:01)
[2022-07-21] MEDS: FERROUS SULFATE 325 MG TABLET PO (08:05)
[2022-07-21] MEDS: CHOLESTYRAMINE POWDER 4 GM PO ×2 (08:05→17:03)
[2022-07-21] MEDS: FUROSEMIDE 40 MG TABLET 20 MG PO (08:05)
[2022-07-21] MEDS: LORATADINE 10 MG TABLET PO (08:06)
[2022-07-21] MEDS: METOPROLOL TARTRATE 100 MG TABLET PO ×2 (08:06→15:12)
[2022-07-21] MEDS: LOPERAMIDE HCL 2 MG CAPSULE PO (08:06)
[2022-07-21] MEDS: POTASSIUM CHLORIDE 10 MEQ CAPSULE ER PO (08:06)
[2022-07-21] MEDS: MEDROXYPROGESTERONE 5 MG TABLET 20 MG PO ×2 (08:07→15:13)
[2022-07-21] MEDS: SPIRONOLACTONE 25 MG TABLET PO (08:07)
[2022-07-21] MEDS: LACTOBACILLUS ACIDOPHILUS 1 TABLET 1 TAB PO ×3 (08:07→17:03)
[2022-07-21] MEDS: APIXABAN 5 MG TABLET PO ×2 (08:07→21:01)
[2022-07-21] MEDS: SERTRALINE 50 MG TABLET PO (08:07)
[2022-07-21 08:09] VITALS: PULSE 74
[2022-07-21] MEDS: DIGOXIN 250 MCG TABLET PO (08:09)
[2022-07-21 10:11] VITALS: BMI 46.3
[2022-07-21] MEDS: MELATONIN 3 MG TABLET 6 MG PO (21:01)
[2022-07-22] MEDS: FERROUS SULFATE 325 MG TABLET PO (08:48)
[2022-07-22] MEDS: CHOLESTYRAMINE POWDER 4 GM PO ×2 (08:48→18:05)
[2022-07-22] MEDS: METOPROLOL TARTRATE 100 MG TABLET PO ×2 (08:49→15:04)
[2022-07-22] MEDS: FUROSEMIDE 40 MG TABLET 20 MG PO (08:49)
[2022-07-22] MEDS: LORATADINE 10 MG TABLET PO (08:49)
[2022-07-22] MEDS: LOPERAMIDE HCL 2 MG CAPSULE PO (08:49)
[2022-07-22] MEDS: POTASSIUM CHLORIDE 10 MEQ CAPSULE ER PO (08:49)
[2022-07-22] MEDS: LACTOBACILLUS ACIDOPHILUS 1 TABLET 1 TAB PO ×3 (08:49→18:05)
[2022-07-22] MEDS: SERTRALINE 50 MG TABLET PO (08:50)
[2022-07-22] MEDS: MEDROXYPROGESTERONE 5 MG TABLET 20 MG PO ×2 (08:50→15:04)
[2022-07-22] MEDS: APIXABAN 5 MG TABLET PO ×2 (08:50→20:40)
[2022-07-22] MEDS: SPIRONOLACTONE 25 MG TABLET PO (08:50)
[2022-07-22 08:55] VITALS: PULSE 64
[2022-07-22] MEDS: DIGOXIN 250 MCG TABLET PO (08:55)
[2022-07-22] MEDS: MELATONIN 3 MG TABLET 6 MG PO (20:40)
[2022-07-22] MEDS: NYSTATIN POWDER 1 APPLIC TOPICAL (22:01)
[2022-07-23 08:42] VITALS: PULSE 68
[2022-07-23] MEDS: FUROSEMIDE 40 MG TABLET 20 MG PO (08:42)
[2022-07-23] MEDS: LOPERAMIDE HCL 2 MG CAPSULE PO (08:42)
[2022-07-23] MEDS: FERROUS SULFATE 325 MG TABLET PO (08:42)
[2022-07-23] MEDS: CHOLESTYRAMINE POWDER 4 GM PO ×2 (08:42→17:10)
[2022-07-23] MEDS: METOPROLOL TARTRATE 100 MG TABLET PO ×2 (08:42→15:28)
[2022-07-23] MEDS: LORATADINE 10 MG TABLET PO (08:42)
[2022-07-23] MEDS: DIGOXIN 250 MCG TABLET PO (08:42)
[2022-07-23] MEDS: MEDROXYPROGESTERONE 5 MG TABLET 20 MG PO ×2 (08:43→15:28)
[2022-07-23] MEDS: SERTRALINE 50 MG TABLET PO (08:43)
[2022-07-23] MEDS: SPIRONOLACTONE 25 MG TABLET PO (08:43)
[2022-07-23] MEDS: POTASSIUM CHLORIDE 10 MEQ CAPSULE ER PO (08:43)
[2022-07-23] MEDS: LACTOBACILLUS ACIDOPHILUS 1 TABLET 1 TAB PO ×3 (08:43→17:10)
[2022-07-23] MEDS: APIXABAN 5 MG TABLET PO ×2 (08:46→20:22)
--- NOTE | 2022-07-23 09:58 | PC.SPIRITC ---
I provided visit for connection and support.
[2022-07-23 10:39] VITALS: BMI 46.5
--- NOTE | 2022-07-23 11:22 | PC.NURSE ---
Status/Order: DIABETES MANAGER, Julieta here. Weights stable reviewed and changed to weekly monitoring.
--- NOTE | 2022-07-23 13:36 | PC.NURSE ---
Followed up with resident about scheduling gynecology consult for postmenopausal bleeding/uterine fibroids. Resident states she is still contemplating when to schedule the appointment. She would like to gain more strength in PT/OT and also needs to figure out when/if she can return to her apartment at [address] She is not sure if she wants to make the appointment before she goes back home or during her stay here. Agreed to follow up in 2 weeks to discuss scheduling. Nursing updated.
[2022-07-23] MEDS: MELATONIN 3 MG TABLET 6 MG PO (19:44)
--- NOTE | 2022-07-24 01:13 | PC.NURSE ---
WEEKLY CHARTING WEEK 4: Vital signs reviewed with no concerns. Comprehensive and temporary care plan reviewed with no changes made. Behavior recorded 1x this month. Refusing weight taken and shower to be done because a specific GIORGIO was not working. Currently on Sertraline 50mg daily and Melatonin at HS. No visual, no hearing impairment. Cognition is intact. Able to communicate needs properly. All medication administer by license nurse except Biotene keeps at bedtime to self administer. health condition is stable.
--- NOTE | 2022-07-24 07:41 | PC.NURSE ---
Weekly Charting - Week 4: Comprehensive and temporary care plan reviewed. No changes made & nothing added to temporary care plan. No changes noted in communication, hearing, vision, or orientation. She does communicate needs & use the call light. Hearing and vision fine. Is cognitively intact. Vital signs no concerns at this time. Weights stable? @ 271-273, reviewed by FLIGHT INSPECTOR. Weight monitoring changed to weekly. Nurse administers all medications except for Biotene spray which she can self administer and kept with her in room. Health condition stable. Mood/Behavior: No issues. Continues on Zoloft 50mg daily and Melatonin 6 mg @ HS with no adverse effects noted. No changes in medication.
[2022-07-24 08:38] VITALS: PULSE 70
[2022-07-24] MEDS: FERROUS SULFATE 325 MG TABLET PO (08:38)
[2022-07-24] MEDS: DIGOXIN 250 MCG TABLET PO (08:38)
[2022-07-24] MEDS: CHOLESTYRAMINE POWDER 4 GM PO ×2 (08:38→17:05)
[2022-07-24] MEDS: POTASSIUM CHLORIDE 10 MEQ CAPSULE ER PO (08:39)
[2022-07-24] MEDS: APIXABAN 5 MG TABLET PO ×2 (08:39→20:15)
[2022-07-24] MEDS: SERTRALINE 50 MG TABLET PO (08:39)
[2022-07-24] MEDS: METOPROLOL TARTRATE 100 MG TABLET PO (08:39)
[2022-07-24] MEDS: LORATADINE 10 MG TABLET PO (08:39)
[2022-07-24] MEDS: LACTOBACILLUS ACIDOPHILUS 1 TABLET 1 TAB PO ×3 (08:39→17:04)
[2022-07-24] MEDS: FUROSEMIDE 40 MG TABLET 20 MG PO (08:39)
[2022-07-24] MEDS: MEDROXYPROGESTERONE 5 MG TABLET 20 MG PO ×2 (08:39→16:24)
[2022-07-24] MEDS: SPIRONOLACTONE 25 MG TABLET PO (08:39)
[2022-07-24] MEDS: LOPERAMIDE HCL 2 MG CAPSULE PO (08:39)
--- NOTE | 2022-07-24 13:35 | PC.NURSE ---
Recert Visit: Resident seen by Dr. Martinez. Orders reviewed and renewed for 45 days with changes. Order: Decrease Metoprolol to 50 mg PO BID, in 2 weeks Check hemoglobin. When ready for gyne consult please arrange consultation.
--- NOTE | 2022-07-24 14:48 | PC.PHA1 ---
TIMBER HARVESTER OPERATOR PHARMACIST'S MEDICATION REVIEW: MEDICATION MONITORING:Sertraline 50 mg IRREGULARITY OR COMMENTS:Patient continues with physical therapy with goal of returning to home. Medroxyprogesterone continues for uterine fibroids, patient wants to gain more strength before delving into Oncology appointment. SUGGESTED COURSE OF ACTION TAKEN:If patient continues to make good physical progress then sertraline dose could be tapered, otherwise patient may still benefit from sertraline dose increase.
[2022-07-24 16:00] VITALS: BP 96/64
[2022-07-24] MEDS: METOPROLOL TARTRATE 100 MG TABLET 50 MG PO (16:23)
[2022-07-24] MEDS: MELATONIN 3 MG TABLET 6 MG PO (20:15)
[2022-07-25] MEDS: FERROUS SULFATE 325 MG TABLET PO (08:03)
[2022-07-25] MEDS: DIGOXIN 250 MCG TABLET PO (08:03)
[2022-07-25] MEDS: CHOLESTYRAMINE POWDER 4 GM PO ×2 (08:03→17:10)
[2022-07-25] MEDS: LOPERAMIDE HCL 2 MG CAPSULE PO (08:04)
[2022-07-25] MEDS: METOPROLOL TARTRATE 100 MG TABLET 50 MG PO ×2 (08:04→15:52)
[2022-07-25] MEDS: FUROSEMIDE 40 MG TABLET 20 MG PO (08:04)
[2022-07-25] MEDS: LORATADINE 10 MG TABLET PO (08:05)
[2022-07-25] MEDS: LACTOBACILLUS ACIDOPHILUS 1 TABLET 1 TAB PO ×3 (08:05→16:32)
[2022-07-25] MEDS: POTASSIUM CHLORIDE 10 MEQ CAPSULE ER PO (08:05)
[2022-07-25] MEDS: MEDROXYPROGESTERONE 5 MG TABLET 20 MG PO ×2 (08:06→15:53)
[2022-07-25] MEDS: SPIRONOLACTONE 25 MG TABLET PO (08:06)
[2022-07-25] MEDS: SERTRALINE 50 MG TABLET PO (08:07)
[2022-07-25] MEDS: APIXABAN 5 MG TABLET PO ×2 (09:45→20:38)
[2022-07-25 15:00] VITALS: BP 102/68; PULSE 80; RESP 16; TEMP 37.1; O2SAT 94
[2022-07-25 16:00] VITALS: BP 102/68
[2022-07-25] MEDS: MELATONIN 3 MG TABLET 6 MG PO (19:54)
[2022-07-26 07:49] VITALS: PULSE 76
[2022-07-26] MEDS: CHOLESTYRAMINE POWDER 4 GM PO ×2 (07:49→17:13)
[2022-07-26] MEDS: DIGOXIN 250 MCG TABLET PO (07:49)
[2022-07-26] MEDS: FUROSEMIDE 40 MG TABLET 20 MG PO (07:49)
[2022-07-26] MEDS: FERROUS SULFATE 325 MG TABLET PO (07:49)
[2022-07-26] MEDS: SERTRALINE 50 MG TABLET PO (07:50)
[2022-07-26] MEDS: POTASSIUM CHLORIDE 10 MEQ CAPSULE ER PO (07:50)
[2022-07-26] MEDS: LOPERAMIDE HCL 2 MG CAPSULE PO (07:50)
[2022-07-26] MEDS: LACTOBACILLUS ACIDOPHILUS 1 TABLET 1 TAB PO ×3 (07:50→16:33)
[2022-07-26] MEDS: MEDROXYPROGESTERONE 5 MG TABLET 20 MG PO ×2 (07:50→15:51)
[2022-07-26] MEDS: LORATADINE 10 MG TABLET PO (07:50)
[2022-07-26] MEDS: METOPROLOL TARTRATE 100 MG TABLET 50 MG PO ×2 (07:50→15:50)
[2022-07-26] MEDS: SPIRONOLACTONE 25 MG TABLET PO (07:50)
[2022-07-26] MEDS: APIXABAN 5 MG TABLET PO ×2 (08:31→20:28)
[2022-07-26 16:00] VITALS: BP 98/66
[2022-07-26] MEDS: MELATONIN 3 MG TABLET 6 MG PO (19:50)
[2022-07-27] MEDS: CHOLESTYRAMINE POWDER 4 GM PO ×2 (08:18→17:08)
[2022-07-27 08:20] VITALS: PULSE 70
[2022-07-27] MEDS: FERROUS SULFATE 325 MG TABLET PO (08:20)
[2022-07-27] MEDS: FUROSEMIDE 40 MG TABLET 20 MG PO (08:20)
[2022-07-27] MEDS: DIGOXIN 250 MCG TABLET PO (08:20)
[2022-07-27] MEDS: LOPERAMIDE HCL 2 MG CAPSULE PO (08:20)
[2022-07-27] MEDS: APIXABAN 5 MG TABLET PO ×2 (08:21→20:23)
[2022-07-27] MEDS: LACTOBACILLUS ACIDOPHILUS 1 TABLET 1 TAB PO ×3 (08:21→17:08)
[2022-07-27] MEDS: SERTRALINE 50 MG TABLET PO (08:21)
[2022-07-27] MEDS: POTASSIUM CHLORIDE 10 MEQ CAPSULE ER PO (08:21)
[2022-07-27] MEDS: SPIRONOLACTONE 25 MG TABLET PO (08:21)
[2022-07-27] MEDS: LORATADINE 10 MG TABLET PO (08:21)
[2022-07-27] MEDS: MEDROXYPROGESTERONE 5 MG TABLET 20 MG PO ×2 (08:21→15:28)
[2022-07-27] MEDS: METOPROLOL TARTRATE 100 MG TABLET 50 MG PO ×2 (08:21→15:28)
[2022-07-27 16:00] VITALS: BP 107/62
[2022-07-27] MEDS: MELATONIN 3 MG TABLET 6 MG PO (19:34)
[2022-07-28 08:10] VITALS: PULSE 72
[2022-07-28] MEDS: FUROSEMIDE 40 MG TABLET 20 MG PO (08:10)
[2022-07-28] MEDS: CHOLESTYRAMINE POWDER 4 GM PO ×2 (08:10→17:17)
[2022-07-28] MEDS: FERROUS SULFATE 325 MG TABLET PO (08:10)
[2022-07-28] MEDS: DIGOXIN 250 MCG TABLET PO (08:10)
[2022-07-28] MEDS: METOPROLOL TARTRATE 100 MG TABLET 50 MG PO ×2 (08:10→16:33)
[2022-07-28] MEDS: LOPERAMIDE HCL 2 MG CAPSULE PO (08:10)
[2022-07-28] MEDS: LORATADINE 10 MG TABLET PO (08:11)
[2022-07-28] MEDS: APIXABAN 5 MG TABLET PO ×2 (08:11→20:00)
[2022-07-28] MEDS: MEDROXYPROGESTERONE 5 MG TABLET 20 MG PO ×2 (08:11→16:33)
[2022-07-28] MEDS: SERTRALINE 50 MG TABLET PO (08:11)
[2022-07-28] MEDS: POTASSIUM CHLORIDE 10 MEQ CAPSULE ER PO (08:11)
[2022-07-28] MEDS: SPIRONOLACTONE 25 MG TABLET PO (08:11)
[2022-07-28] MEDS: LACTOBACILLUS ACIDOPHILUS 1 TABLET 1 TAB PO ×3 (08:11→17:17)
--- NOTE | 2022-07-28 12:08 | PC.SPIRITC ---
I provided visit for support and connection.
[2022-07-28 16:00] VITALS: BP 105/65
[2022-07-28] MEDS: MELATONIN 3 MG TABLET 6 MG PO (20:00)
[2022-07-29] MEDS: CHOLESTYRAMINE POWDER 4 GM PO ×2 (08:42→17:10)
[2022-07-29] MEDS: FERROUS SULFATE 325 MG TABLET PO (08:42)
[2022-07-29] MEDS: LOPERAMIDE HCL 2 MG CAPSULE PO (08:43)
[2022-07-29] MEDS: FUROSEMIDE 40 MG TABLET 20 MG PO (08:43)
[2022-07-29] MEDS: POTASSIUM CHLORIDE 10 MEQ CAPSULE ER PO (08:43)
[2022-07-29] MEDS: LACTOBACILLUS ACIDOPHILUS 1 TABLET 1 TAB PO ×3 (08:43→17:10)
[2022-07-29] MEDS: METOPROLOL TARTRATE 100 MG TABLET 50 MG PO ×2 (08:43→15:27)
[2022-07-29] MEDS: LORATADINE 10 MG TABLET PO (08:43)
[2022-07-29] MEDS: SPIRONOLACTONE 25 MG TABLET PO (08:44)
[2022-07-29] MEDS: MEDROXYPROGESTERONE 5 MG TABLET 20 MG PO ×2 (08:44→15:27)
[2022-07-29] MEDS: APIXABAN 5 MG TABLET PO ×2 (08:44→20:47)
[2022-07-29] MEDS: SERTRALINE 50 MG TABLET PO (08:44)
[2022-07-29 08:47] VITALS: PULSE 72
[2022-07-29] MEDS: DIGOXIN 250 MCG TABLET PO (08:47)
[2022-07-29 16:00] VITALS: BP 112/68
[2022-07-29] MEDS: MELATONIN 3 MG TABLET 6 MG PO (20:47)
[2022-07-30 08:20] VITALS: PULSE 72
[2022-07-30] MEDS: CHOLESTYRAMINE POWDER 4 GM PO ×2 (08:20→17:16)
[2022-07-30] MEDS: DIGOXIN 250 MCG TABLET PO (08:20)
[2022-07-30] MEDS: FERROUS SULFATE 325 MG TABLET PO (08:20)
[2022-07-30] MEDS: LOPERAMIDE HCL 2 MG CAPSULE PO (08:21)
[2022-07-30] MEDS: SPIRONOLACTONE 25 MG TABLET PO (08:21)
[2022-07-30] MEDS: APIXABAN 5 MG TABLET PO ×2 (08:21→21:08)
[2022-07-30] MEDS: METOPROLOL TARTRATE 100 MG TABLET 50 MG PO ×2 (08:21→16:12)
[2022-07-30] MEDS: SERTRALINE 50 MG TABLET PO (08:21)
[2022-07-30] MEDS: LACTOBACILLUS ACIDOPHILUS 1 TABLET 1 TAB PO ×3 (08:21→17:16)
[2022-07-30] MEDS: FUROSEMIDE 40 MG TABLET 20 MG PO (08:21)
[2022-07-30] MEDS: POTASSIUM CHLORIDE 10 MEQ CAPSULE ER PO (08:21)
[2022-07-30] MEDS: MEDROXYPROGESTERONE 5 MG TABLET 20 MG PO ×2 (08:21→16:12)
[2022-07-30] MEDS: LORATADINE 10 MG TABLET PO (08:21)
--- NOTE | 2022-07-30 13:40 | PC.NURSE ---
Spoke to resident regarding scheduling her gynecology consult for dysfunctional uterine bleeding. She stated that she spoke with the MD and knew what her decision would be but wanted to wait until Wednesday. Will follow up with resident on Wednesday about scheduling consult.
[2022-07-30] MEDS: MELATONIN 3 MG TABLET 6 MG PO (21:08)
[2022-07-31 08:39] VITALS: PULSE 72
[2022-07-31] MEDS: CHOLESTYRAMINE POWDER 4 GM PO ×2 (08:39→17:06)
[2022-07-31] MEDS: DIGOXIN 250 MCG TABLET PO (08:39)
[2022-07-31] MEDS: FERROUS SULFATE 325 MG TABLET PO (08:39)
[2022-07-31] MEDS: LACTOBACILLUS ACIDOPHILUS 1 TABLET 1 TAB PO ×3 (08:40→17:06)
[2022-07-31] MEDS: METOPROLOL TARTRATE 100 MG TABLET 50 MG PO ×2 (08:40→15:33)
[2022-07-31] MEDS: SERTRALINE 50 MG TABLET PO (08:40)
[2022-07-31] MEDS: LORATADINE 10 MG TABLET PO (08:40)
[2022-07-31] MEDS: FUROSEMIDE 40 MG TABLET 20 MG PO (08:40)
[2022-07-31] MEDS: POTASSIUM CHLORIDE 10 MEQ CAPSULE ER PO (08:40)
[2022-07-31] MEDS: MEDROXYPROGESTERONE 5 MG TABLET 20 MG PO ×2 (08:40→15:33)
[2022-07-31] MEDS: SPIRONOLACTONE 25 MG TABLET PO (08:40)
[2022-07-31] MEDS: LOPERAMIDE HCL 2 MG CAPSULE PO (08:40)
[2022-07-31] MEDS: APIXABAN 5 MG TABLET PO ×2 (08:40→20:22)
[2022-07-31 16:00] VITALS: BP 99/63
[2022-07-31] MEDS: MELATONIN 3 MG TABLET 6 MG PO (20:22)
[2022-08-01] MEDS: FUROSEMIDE 40 MG TABLET 20 MG PO (08:27)
[2022-08-01] MEDS: CHOLESTYRAMINE POWDER 4 GM PO ×2 (08:27→17:04)
[2022-08-01] MEDS: FERROUS SULFATE 325 MG TABLET PO (08:27)
[2022-08-01] MEDS: LACTOBACILLUS ACIDOPHILUS 1 TABLET 1 TAB PO ×3 (08:28→17:04)
[2022-08-01] MEDS: LOPERAMIDE HCL 2 MG CAPSULE PO (08:28)
[2022-08-01] MEDS: MEDROXYPROGESTERONE 5 MG TABLET 20 MG PO ×2 (08:28→15:57)
[2022-08-01] MEDS: POTASSIUM CHLORIDE 10 MEQ CAPSULE ER PO (08:28)
[2022-08-01] MEDS: METOPROLOL TARTRATE 100 MG TABLET 50 MG PO ×2 (08:28→15:57)
[2022-08-01] MEDS: SPIRONOLACTONE 25 MG TABLET PO (08:28)
[2022-08-01] MEDS: LORATADINE 10 MG TABLET PO (08:28)
[2022-08-01] MEDS: SERTRALINE 50 MG TABLET PO (08:29)
[2022-08-01] MEDS: APIXABAN 5 MG TABLET PO ×2 (08:29→20:03)
[2022-08-01 08:32] VITALS: PULSE 64
[2022-08-01] MEDS: DIGOXIN 250 MCG TABLET PO (08:32)
[2022-08-01 15:00] VITALS: BP 109/75; PULSE 73; RESP 16; TEMP 36.9; O2SAT 99
[2022-08-01 16:00] VITALS: BP 109/75
[2022-08-01] MEDS: MELATONIN 3 MG TABLET 6 MG PO (20:03)
[2022-08-02] MEDS: CHOLESTYRAMINE POWDER 4 GM PO ×2 (08:24→17:12)
[2022-08-02] MEDS: FERROUS SULFATE 325 MG TABLET PO (08:25)
[2022-08-02] MEDS: POTASSIUM CHLORIDE 10 MEQ CAPSULE ER PO (08:26)
[2022-08-02] MEDS: FUROSEMIDE 40 MG TABLET 20 MG PO (08:26)
[2022-08-02] MEDS: LOPERAMIDE HCL 2 MG CAPSULE PO (08:26)
[2022-08-02] MEDS: METOPROLOL TARTRATE 100 MG TABLET 50 MG PO ×2 (08:26→15:37)
[2022-08-02] MEDS: LACTOBACILLUS ACIDOPHILUS 1 TABLET 1 TAB PO ×3 (08:26→17:12)
[2022-08-02] MEDS: MEDROXYPROGESTERONE 5 MG TABLET 20 MG PO ×2 (08:26→15:37)
[2022-08-02] MEDS: LORATADINE 10 MG TABLET PO (08:26)
[2022-08-02] MEDS: SPIRONOLACTONE 25 MG TABLET PO (08:27)
[2022-08-02] MEDS: SERTRALINE 50 MG TABLET PO (08:27)
[2022-08-02] MEDS: APIXABAN 5 MG TABLET PO ×2 (08:27→20:11)
[2022-08-02 08:30] VITALS: PULSE 72
[2022-08-02] MEDS: DIGOXIN 250 MCG TABLET PO (08:30)
[2022-08-02 16:00] VITALS: BP 110/70
[2022-08-02] MEDS: MELATONIN 3 MG TABLET 6 MG PO (20:11)
[2022-08-03] MEDS: FERROUS SULFATE 325 MG TABLET PO (08:53)
[2022-08-03] MEDS: LOPERAMIDE HCL 2 MG CAPSULE PO (08:54)
[2022-08-03] MEDS: LORATADINE 10 MG TABLET PO (08:54)
[2022-08-03] MEDS: POTASSIUM CHLORIDE 10 MEQ CAPSULE ER PO (08:54)
[2022-08-03] MEDS: FUROSEMIDE 40 MG TABLET 20 MG PO (08:54)
[2022-08-03] MEDS: METOPROLOL TARTRATE 100 MG TABLET 50 MG PO ×2 (08:54→16:22)
[2022-08-03] MEDS: MEDROXYPROGESTERONE 5 MG TABLET 20 MG PO ×2 (08:55→16:23)
[2022-08-03] MEDS: LACTOBACILLUS ACIDOPHILUS 1 TABLET 1 TAB PO ×3 (08:55→16:37)
[2022-08-03] MEDS: SPIRONOLACTONE 25 MG TABLET PO (08:55)
[2022-08-03] MEDS: APIXABAN 5 MG TABLET PO ×2 (08:56→20:24)
[2022-08-03] MEDS: SERTRALINE 50 MG TABLET PO (08:56)
[2022-08-03 09:01] VITALS: PULSE 71
[2022-08-03] MEDS: DIGOXIN 250 MCG TABLET PO (09:01)
[2022-08-03] MEDS: CHOLESTYRAMINE POWDER 4 GM PO ×2 (09:02→17:20)
[2022-08-03 16:00] VITALS: BP 107/69
[2022-08-03] MEDS: MELATONIN 3 MG TABLET 6 MG PO (20:23)
[2022-08-04] MEDS: CHOLESTYRAMINE POWDER 4 GM PO ×2 (08:52→17:04)
[2022-08-04] MEDS: LOPERAMIDE HCL 2 MG CAPSULE PO (08:53)
[2022-08-04] MEDS: FERROUS SULFATE 325 MG TABLET PO (08:53)
[2022-08-04] MEDS: FUROSEMIDE 40 MG TABLET 20 MG PO (08:53)
[2022-08-04] MEDS: POTASSIUM CHLORIDE 10 MEQ CAPSULE ER PO (08:54)
[2022-08-04] MEDS: LORATADINE 10 MG TABLET PO (08:54)
[2022-08-04] MEDS: METOPROLOL TARTRATE 100 MG TABLET 50 MG PO ×2 (08:54→15:23)
[2022-08-04] MEDS: LACTOBACILLUS ACIDOPHILUS 1 TABLET 1 TAB PO ×3 (08:54→17:04)
[2022-08-04] MEDS: APIXABAN 5 MG TABLET PO ×2 (08:55→20:30)
[2022-08-04] MEDS: SERTRALINE 50 MG TABLET PO (08:55)
[2022-08-04] MEDS: SPIRONOLACTONE 25 MG TABLET PO (08:55)
[2022-08-04] MEDS: MEDROXYPROGESTERONE 5 MG TABLET 20 MG PO ×2 (08:55→15:23)
[2022-08-04 09:02] VITALS: PULSE 68
[2022-08-04] MEDS: DIGOXIN 250 MCG TABLET PO (09:02)
[2022-08-04 16:00] VITALS: BP 108/71
[2022-08-04] MEDS: MELATONIN 3 MG TABLET 6 MG PO (20:30)
[2022-08-05] MEDS: FERROUS SULFATE 325 MG TABLET PO (08:38)
[2022-08-05] MEDS: CHOLESTYRAMINE POWDER 4 GM PO ×2 (08:38→18:05)
[2022-08-05] MEDS: FUROSEMIDE 40 MG TABLET 20 MG PO (08:39)
[2022-08-05] MEDS: LORATADINE 10 MG TABLET PO (08:39)
[2022-08-05] MEDS: LOPERAMIDE HCL 2 MG CAPSULE PO (08:39)
[2022-08-05] MEDS: METOPROLOL TARTRATE 100 MG TABLET 50 MG PO ×2 (08:39→15:02)
[2022-08-05] MEDS: POTASSIUM CHLORIDE 10 MEQ CAPSULE ER PO (08:40)
[2022-08-05] MEDS: SPIRONOLACTONE 25 MG TABLET PO (08:41)
[2022-08-05] MEDS: LACTOBACILLUS ACIDOPHILUS 1 TABLET 1 TAB PO ×3 (08:41→18:05)
[2022-08-05] MEDS: MEDROXYPROGESTERONE 5 MG TABLET 20 MG PO ×2 (08:41→15:02)
[2022-08-05] MEDS: SERTRALINE 50 MG TABLET PO (08:41)
[2022-08-05] MEDS: APIXABAN 5 MG TABLET PO ×2 (08:41→20:23)
[2022-08-05 08:45] VITALS: PULSE 64
[2022-08-05] MEDS: DIGOXIN 250 MCG TABLET PO (08:45)
[2022-08-05] MEDS: MELATONIN 3 MG TABLET 6 MG PO (20:23)
[2022-08-06] MEDS: CHOLESTYRAMINE POWDER 4 GM PO ×2 (08:04→17:09)
[2022-08-06] MEDS: FUROSEMIDE 40 MG TABLET 20 MG PO (08:04)
[2022-08-06] MEDS: FERROUS SULFATE 325 MG TABLET PO (08:04)
[2022-08-06] MEDS: LORATADINE 10 MG TABLET PO (08:06)
[2022-08-06] MEDS: METOPROLOL TARTRATE 100 MG TABLET 50 MG PO ×2 (08:06→15:53)
[2022-08-06] MEDS: LOPERAMIDE HCL 2 MG CAPSULE PO (08:06)
[2022-08-06] MEDS: POTASSIUM CHLORIDE 10 MEQ CAPSULE ER PO (08:06)
[2022-08-06] MEDS: MEDROXYPROGESTERONE 5 MG TABLET 20 MG PO ×2 (08:07→15:53)
[2022-08-06] MEDS: LACTOBACILLUS ACIDOPHILUS 1 TABLET 1 TAB PO ×3 (08:08→17:09)
[2022-08-06] MEDS: SERTRALINE 50 MG TABLET PO (08:08)
[2022-08-06] MEDS: APIXABAN 5 MG TABLET PO ×2 (08:08→20:31)
[2022-08-06] MEDS: SPIRONOLACTONE 25 MG TABLET PO (08:08)
[2022-08-06 08:53] VITALS: PULSE 66
[2022-08-06] MEDS: DIGOXIN 250 MCG TABLET PO (08:53)
--- NOTE | 2022-08-06 13:44 | PC.NURSE ---
Resident agreed to scheduling Gynecology consult on 08/03/22. Per the [facility] recommended scheduling with Dr. Karen Lorenzo at [facility]. Called and left a VM to schedule consultation appointment x2 (08/03/22 and 08/06/22).
[2022-08-06] MEDS: MELATONIN 3 MG TABLET 6 MG PO (20:31)
--- NOTE | 2022-08-07 02:25 | PC.NURSE ---
Weekly charting week 1: Vitals signs reviewed. BP somehow elevated. Continues weekly BP monitoring, Notify MANAGER MARKETING COMMUNICATION as needed. Comprehensive and temporary care plan reviewed with no changes made. Has history of knee pain. Not on schedule pain medication. Order for acetaminophen 975mg Q8 hours PRN which has been utilized x1 in the last month. Assist of 1-2 with dressing and bathing. Completes grooming tasks and oral cares independently after set-up. Receives a regular diet with regular textures and thin liquids. Receives double protein portions. Eats independently. Prefer to eat in the room. No chewing/swallowing problems.
[2022-08-07 07:38] LABS: Hemoglobin* 11.2 gm/dL (12.0-16.0)
[2022-08-07 07:44] VITALS: PULSE 72
[2022-08-07] MEDS: CHOLESTYRAMINE POWDER 4 GM PO ×2 (07:44→17:19)
[2022-08-07] MEDS: FERROUS SULFATE 325 MG TABLET PO (07:44)
[2022-08-07] MEDS: LOPERAMIDE HCL 2 MG CAPSULE PO (07:44)
[2022-08-07] MEDS: FUROSEMIDE 40 MG TABLET 20 MG PO (07:44)
[2022-08-07] MEDS: DIGOXIN 250 MCG TABLET PO (07:44)
[2022-08-07] MEDS: LACTOBACILLUS ACIDOPHILUS 1 TABLET 1 TAB PO ×3 (07:45→17:19)
[2022-08-07] MEDS: LORATADINE 10 MG TABLET PO (07:45)
[2022-08-07] MEDS: POTASSIUM CHLORIDE 10 MEQ CAPSULE ER PO (07:45)
[2022-08-07] MEDS: METOPROLOL TARTRATE 100 MG TABLET 50 MG PO ×2 (07:45→15:58)
[2022-08-07] MEDS: MEDROXYPROGESTERONE 5 MG TABLET 20 MG PO ×2 (07:46→15:58)
[2022-08-07] MEDS: SERTRALINE 50 MG TABLET PO (07:46)
[2022-08-07] MEDS: SPIRONOLACTONE 25 MG TABLET PO (07:46)
[2022-08-07] MEDS: APIXABAN 5 MG TABLET PO ×2 (08:37→21:34)
--- NOTE | 2022-08-07 11:36 | PC.NURSE ---
Lab: Hemoglobin result reviewed by Dr. Martinez. No new order. MD aware resident has a gyne consult coming on 08/28/22.
--- NOTE | 2022-08-07 14:01 | PC.NURSE ---
Weekly Charting, Week 1 - ADL's: Comprehensive and temporary care plan reviewed. No changes made, & nothing added to temporary care plan. Resident needs one assist with dressing lower half, is able to do upper half dressing. Staff to apply compression wraps to BLE in AM, remove at HS. Grooming, oral cares, and feeding done independently after set up. Needs 2 assists with bed bath. Is on regular diet, double protein portions. No problem with chewing/swallowing reported. Vital signs reviewed, no concerns. Weights stable, monitor weekly Pain: Has history of knee pain. No complain the past month. Is on no schedule pain medication. Has an order Tylenol 975mg PRN, has used sparingly. Resident is able to make needs known.
[2022-08-07] MEDS: MELATONIN 3 MG TABLET 6 MG PO (21:34)
[2022-08-08 08:29] VITALS: PULSE 74
[2022-08-08] MEDS: DIGOXIN 250 MCG TABLET PO (08:29)
[2022-08-08] MEDS: FERROUS SULFATE 325 MG TABLET PO (08:29)
[2022-08-08] MEDS: CHOLESTYRAMINE POWDER 4 GM PO ×2 (08:29→17:01)
[2022-08-08] MEDS: SPIRONOLACTONE 25 MG TABLET PO (08:30)
[2022-08-08] MEDS: LOPERAMIDE HCL 2 MG CAPSULE PO (08:30)
[2022-08-08] MEDS: SERTRALINE 50 MG TABLET PO (08:30)
[2022-08-08] MEDS: LACTOBACILLUS ACIDOPHILUS 1 TABLET 1 TAB PO ×3 (08:30→17:01)
[2022-08-08] MEDS: MEDROXYPROGESTERONE 5 MG TABLET 20 MG PO ×2 (08:30→15:56)
[2022-08-08] MEDS: FUROSEMIDE 40 MG TABLET 20 MG PO (08:30)
[2022-08-08] MEDS: APIXABAN 5 MG TABLET PO ×2 (08:30→20:49)
[2022-08-08] MEDS: LORATADINE 10 MG TABLET PO (08:30)
[2022-08-08] MEDS: METOPROLOL TARTRATE 100 MG TABLET 50 MG PO ×2 (08:30→15:56)
[2022-08-08] MEDS: POTASSIUM CHLORIDE 10 MEQ CAPSULE ER PO (08:30)
[2022-08-08 15:00] VITALS: BP 123/78; PULSE 69; RESP 17; TEMP 37.2; O2SAT 97
[2022-08-08] MEDS: MELATONIN 3 MG TABLET 6 MG PO (20:49)
--- NOTE | 2022-08-08 22:23 | PC.NURSE ---
Bed Bath: Resident has refused to take whirlpool bath. States she is fearful of the chair. Did have a bed bath this evening. CPAP cleaning done and filter replaced.
[2022-08-09 08:20] VITALS: PULSE 74
[2022-08-09] MEDS: LOPERAMIDE HCL 2 MG CAPSULE PO (08:20)
[2022-08-09] MEDS: METOPROLOL TARTRATE 100 MG TABLET 50 MG PO ×2 (08:20→15:31)
[2022-08-09] MEDS: FERROUS SULFATE 325 MG TABLET PO (08:20)
[2022-08-09] MEDS: FUROSEMIDE 40 MG TABLET 20 MG PO (08:20)
[2022-08-09] MEDS: LACTOBACILLUS ACIDOPHILUS 1 TABLET 1 TAB PO ×3 (08:20→17:18)
[2022-08-09] MEDS: DIGOXIN 250 MCG TABLET PO (08:20)
[2022-08-09] MEDS: CHOLESTYRAMINE POWDER 4 GM PO ×2 (08:20→17:18)
[2022-08-09] MEDS: LORATADINE 10 MG TABLET PO (08:20)
[2022-08-09] MEDS: POTASSIUM CHLORIDE 10 MEQ CAPSULE ER PO (08:20)
[2022-08-09] MEDS: SERTRALINE 50 MG TABLET PO (08:21)
[2022-08-09] MEDS: SPIRONOLACTONE 25 MG TABLET PO (08:21)
[2022-08-09] MEDS: MEDROXYPROGESTERONE 5 MG TABLET 20 MG PO ×2 (08:21→15:31)
[2022-08-09] MEDS: APIXABAN 5 MG TABLET PO ×2 (08:21→20:29)
[2022-08-09] MEDS: MELATONIN 3 MG TABLET 6 MG PO (20:29)
[2022-08-10 08:12] VITALS: PULSE 68
[2022-08-10] MEDS: FERROUS SULFATE 325 MG TABLET PO (08:12)
[2022-08-10] MEDS: CHOLESTYRAMINE POWDER 4 GM PO ×2 (08:12→17:22)
[2022-08-10] MEDS: DIGOXIN 250 MCG TABLET PO (08:12)
[2022-08-10] MEDS: FUROSEMIDE 40 MG TABLET 20 MG PO (08:12)
[2022-08-10] MEDS: LOPERAMIDE HCL 2 MG CAPSULE PO (08:12)
[2022-08-10] MEDS: POTASSIUM CHLORIDE 10 MEQ CAPSULE ER PO (08:13)
[2022-08-10] MEDS: SPIRONOLACTONE 25 MG TABLET PO (08:13)
[2022-08-10] MEDS: APIXABAN 5 MG TABLET PO ×2 (08:13→20:22)
[2022-08-10] MEDS: LACTOBACILLUS ACIDOPHILUS 1 TABLET 1 TAB PO ×3 (08:13→16:45)
[2022-08-10] MEDS: LORATADINE 10 MG TABLET PO (08:13)
[2022-08-10] MEDS: SERTRALINE 50 MG TABLET PO (08:13)
[2022-08-10] MEDS: MEDROXYPROGESTERONE 5 MG TABLET 20 MG PO ×2 (08:13→15:53)
[2022-08-10] MEDS: METOPROLOL TARTRATE 100 MG TABLET 50 MG PO ×2 (08:13→15:53)
--- NOTE | 2022-08-10 11:27 | PC.NURSE ---
Gynecology consult scheduled with at [facility] on August 28 at 1pm. Most recent GRADUATING MACHINE OPERATOR notes and US/MRI results faxed to 's office at [phone].
[2022-08-10 14:13] VITALS: BMI 46.3
[2022-08-10] MEDS: MELATONIN 3 MG TABLET 6 MG PO (19:36)
[2022-08-11 08:10] VITALS: PULSE 72
[2022-08-11] MEDS: CHOLESTYRAMINE POWDER 4 GM PO ×2 (08:10→17:06)
[2022-08-11] MEDS: FERROUS SULFATE 325 MG TABLET PO (08:10)
[2022-08-11] MEDS: DIGOXIN 250 MCG TABLET PO (08:10)
[2022-08-11] MEDS: LOPERAMIDE HCL 2 MG CAPSULE PO (08:11)
[2022-08-11] MEDS: FUROSEMIDE 40 MG TABLET 20 MG PO (08:11)
[2022-08-11] MEDS: LACTOBACILLUS ACIDOPHILUS 1 TABLET 1 TAB PO ×3 (08:12→17:06)
[2022-08-11] MEDS: LORATADINE 10 MG TABLET PO (08:12)
[2022-08-11] MEDS: MEDROXYPROGESTERONE 5 MG TABLET 20 MG PO ×2 (08:12→15:28)
[2022-08-11] MEDS: METOPROLOL TARTRATE 100 MG TABLET 50 MG PO ×2 (08:12→15:28)
[2022-08-11] MEDS: POTASSIUM CHLORIDE 10 MEQ CAPSULE ER PO (08:12)
[2022-08-11] MEDS: APIXABAN 5 MG TABLET PO ×2 (08:15→20:29)
[2022-08-11] MEDS: SERTRALINE 50 MG TABLET PO (08:15)
[2022-08-11] MEDS: SPIRONOLACTONE 25 MG TABLET PO (08:15)
[2022-08-11] MEDS: MELATONIN 3 MG TABLET 6 MG PO (20:29)
[2022-08-12] MEDS: CHOLESTYRAMINE POWDER 4 GM PO ×2 (08:27→17:22)
[2022-08-12 08:28] VITALS: PULSE 68
[2022-08-12] MEDS: LORATADINE 10 MG TABLET PO (08:28)
[2022-08-12] MEDS: LACTOBACILLUS ACIDOPHILUS 1 TABLET 1 TAB PO ×3 (08:28→17:21)
[2022-08-12] MEDS: METOPROLOL TARTRATE 100 MG TABLET 50 MG PO ×2 (08:28→16:12)
[2022-08-12] MEDS: DIGOXIN 250 MCG TABLET PO (08:28)
[2022-08-12] MEDS: FERROUS SULFATE 325 MG TABLET PO (08:28)
[2022-08-12] MEDS: POTASSIUM CHLORIDE 10 MEQ CAPSULE ER PO (08:28)
[2022-08-12] MEDS: SPIRONOLACTONE 25 MG TABLET PO (08:28)
[2022-08-12] MEDS: SERTRALINE 50 MG TABLET PO (08:28)
[2022-08-12] MEDS: APIXABAN 5 MG TABLET PO ×2 (08:28→20:40)
[2022-08-12] MEDS: LOPERAMIDE HCL 2 MG CAPSULE PO (08:28)
[2022-08-12] MEDS: FUROSEMIDE 40 MG TABLET 20 MG PO (08:28)
[2022-08-12] MEDS: MEDROXYPROGESTERONE 5 MG TABLET 20 MG PO ×2 (08:28→16:12)
--- NOTE | 2022-08-12 13:46 | PC.NURSE ---
Resident current SCD wrap is torn and unable to have a proper seal. Staff got for resident a new wrap with large size and will have it change tomorrow.
[2022-08-12] MEDS: MELATONIN 3 MG TABLET 6 MG PO (20:40)
[2022-08-13] MEDS: CHOLESTYRAMINE POWDER 4 GM PO ×2 (08:39→17:03)
[2022-08-13] MEDS: FERROUS SULFATE 325 MG TABLET PO (08:39)
[2022-08-13 08:40] VITALS: PULSE 72
[2022-08-13] MEDS: METOPROLOL TARTRATE 100 MG TABLET 50 MG PO ×2 (08:40→16:16)
[2022-08-13] MEDS: LACTOBACILLUS ACIDOPHILUS 1 TABLET 1 TAB PO ×3 (08:40→17:03)
[2022-08-13] MEDS: SERTRALINE 50 MG TABLET PO (08:40)
[2022-08-13] MEDS: LORATADINE 10 MG TABLET PO (08:40)
[2022-08-13] MEDS: APIXABAN 5 MG TABLET PO ×2 (08:40→20:41)
[2022-08-13] MEDS: FUROSEMIDE 40 MG TABLET 20 MG PO (08:40)
[2022-08-13] MEDS: MEDROXYPROGESTERONE 5 MG TABLET 20 MG PO ×2 (08:40→16:16)
[2022-08-13] MEDS: DIGOXIN 250 MCG TABLET PO (08:40)
[2022-08-13] MEDS: POTASSIUM CHLORIDE 10 MEQ CAPSULE ER PO (08:40)
[2022-08-13] MEDS: SPIRONOLACTONE 25 MG TABLET PO (08:40)
[2022-08-13] MEDS: LOPERAMIDE HCL 2 MG CAPSULE PO (08:40)
[2022-08-13] MEDS: MELATONIN 3 MG TABLET 6 MG PO (20:41)
--- NOTE | 2022-08-13 23:41 | PC.NURSE ---
Weekly Charting Week 2: MOBILITY Vital signs reviewed with no concerns. Comprehensive and temporary care plan reviewed with no changes made. Res requires 1 staff assist with the use of EZ Stand for transfer. Has 1/4 side rails to promoted independent bed mobility. Able to propel wheelchair independent in the room. Nursing to ambulate with patient x2/day (AM/PM) in hallway with rolling walker. Don gait belt prior and follow closely with wheelchair. Patient use one arm rest and rail in hallway to stand with walker, SBA . Have patient attempt to ambulate as far as she can, aiming 3 trial.? Res is a low fall risk. Fall prevention: call light within reach, Bed in low position with brakes on, Wear no slips socks.
[2022-08-14 07:57] VITALS: PULSE 72
[2022-08-14] MEDS: DIGOXIN 250 MCG TABLET PO (07:57)
[2022-08-14] MEDS: CHOLESTYRAMINE POWDER 4 GM PO ×2 (07:57→17:11)
[2022-08-14] MEDS: FERROUS SULFATE 325 MG TABLET PO (07:57)
[2022-08-14] MEDS: FUROSEMIDE 40 MG TABLET 20 MG PO (07:57)
[2022-08-14] MEDS: LOPERAMIDE HCL 2 MG CAPSULE PO (07:57)
[2022-08-14] MEDS: METOPROLOL TARTRATE 100 MG TABLET 50 MG PO ×2 (07:57→15:40)
[2022-08-14] MEDS: POTASSIUM CHLORIDE 10 MEQ CAPSULE ER PO (07:59)
[2022-08-14] MEDS: MEDROXYPROGESTERONE 5 MG TABLET 20 MG PO ×2 (07:59→15:40)
[2022-08-14] MEDS: SPIRONOLACTONE 25 MG TABLET PO (07:59)
[2022-08-14] MEDS: LACTOBACILLUS ACIDOPHILUS 1 TABLET 1 TAB PO ×3 (07:59→17:11)
[2022-08-14] MEDS: SERTRALINE 50 MG TABLET PO (07:59)
[2022-08-14] MEDS: APIXABAN 5 MG TABLET PO ×2 (07:59→20:07)
[2022-08-14] MEDS: LORATADINE 10 MG TABLET PO (07:59)
--- NOTE | 2022-08-14 09:17 | PC.NURSE ---
Weekly Charting, Week 2 - Mobility:? Comprehensive and temporary care plan reviewed. No changes made, nothing added to temporary care plan. Transfers using a medi stand with 1 assist.?Is on the ambulation BID in hallway with rolling walker, gait belt, one assist followed with wheelchair. Patient uses one arm and rail in hallway to stand with walker, SBA. Is able to reposition self in bed and chair. Will call for assists as needed. Resident instructed to wheel herself at least once/day. No alarms. Bilateral 1/4 bed rails up at all times to promote independence with bed positioning. Vital signs reviewed, no concerns. Fall: No falls the past month.? Is a low fall risk according to assessment done on 05/14/22. Fall interventions: Call light within reach, bed in low position with brakes locked, gripper socks for transfer
[2022-08-14] MEDS: MELATONIN 3 MG TABLET 6 MG PO (20:07)
[2022-08-15] MEDS: FERROUS SULFATE 325 MG TABLET PO (08:29)
[2022-08-15] MEDS: CHOLESTYRAMINE POWDER 4 GM PO ×2 (08:29→17:17)
[2022-08-15] MEDS: LORATADINE 10 MG TABLET PO (08:30)
[2022-08-15] MEDS: FUROSEMIDE 40 MG TABLET 20 MG PO (08:30)
[2022-08-15] MEDS: POTASSIUM CHLORIDE 10 MEQ CAPSULE ER PO (08:30)
[2022-08-15] MEDS: LOPERAMIDE HCL 2 MG CAPSULE PO (08:30)
[2022-08-15] MEDS: METOPROLOL TARTRATE 100 MG TABLET 50 MG PO ×2 (08:30→16:26)
[2022-08-15] MEDS: MEDROXYPROGESTERONE 5 MG TABLET 20 MG PO ×2 (08:31→16:28)
[2022-08-15] MEDS: SERTRALINE 50 MG TABLET PO (08:31)
[2022-08-15] MEDS: SPIRONOLACTONE 25 MG TABLET PO (08:31)
[2022-08-15] MEDS: LACTOBACILLUS ACIDOPHILUS 1 TABLET 1 TAB PO ×3 (08:31→16:48)
[2022-08-15] MEDS: APIXABAN 5 MG TABLET PO ×2 (08:32→20:06)
[2022-08-15 08:34] VITALS: PULSE 68
[2022-08-15] MEDS: DIGOXIN 250 MCG TABLET PO (08:34)
[2022-08-15 15:00] VITALS: BP 113/63; PULSE 69; RESP 16; TEMP 36.9; O2SAT 99
[2022-08-15] MEDS: MELATONIN 3 MG TABLET 6 MG PO (20:06)
[2022-08-16 08:06] VITALS: PULSE 68
[2022-08-16] MEDS: POTASSIUM CHLORIDE 10 MEQ CAPSULE ER PO (08:06)
[2022-08-16] MEDS: LORATADINE 10 MG TABLET PO (08:06)
[2022-08-16] MEDS: FUROSEMIDE 40 MG TABLET 20 MG PO (08:06)
[2022-08-16] MEDS: DIGOXIN 250 MCG TABLET PO (08:06)
[2022-08-16] MEDS: FERROUS SULFATE 325 MG TABLET PO (08:06)
[2022-08-16] MEDS: CHOLESTYRAMINE POWDER 4 GM PO ×2 (08:06→17:06)
[2022-08-16] MEDS: SERTRALINE 50 MG TABLET PO (08:06)
[2022-08-16] MEDS: APIXABAN 5 MG TABLET PO ×2 (08:06→20:23)
[2022-08-16] MEDS: MEDROXYPROGESTERONE 5 MG TABLET 20 MG PO ×2 (08:06→15:35)
[2022-08-16] MEDS: LOPERAMIDE HCL 2 MG CAPSULE PO (08:06)
[2022-08-16] MEDS: LACTOBACILLUS ACIDOPHILUS 1 TABLET 1 TAB PO ×3 (08:06→17:06)
[2022-08-16] MEDS: METOPROLOL TARTRATE 100 MG TABLET 50 MG PO ×2 (08:06→15:35)
[2022-08-16] MEDS: SPIRONOLACTONE 25 MG TABLET PO (08:06)
[2022-08-16] MEDS: MELATONIN 3 MG TABLET 6 MG PO (20:23)
[2022-08-17 07:56] VITALS: PULSE 70
[2022-08-17] MEDS: DIGOXIN 250 MCG TABLET PO (07:56)
[2022-08-17] MEDS: CHOLESTYRAMINE POWDER 4 GM PO ×2 (07:56→17:22)
[2022-08-17] MEDS: FERROUS SULFATE 325 MG TABLET PO (07:56)
[2022-08-17] MEDS: LACTOBACILLUS ACIDOPHILUS 1 TABLET 1 TAB PO ×3 (07:57→16:44)
[2022-08-17] MEDS: METOPROLOL TARTRATE 100 MG TABLET 50 MG PO ×2 (07:57→16:32)
[2022-08-17] MEDS: LOPERAMIDE HCL 2 MG CAPSULE PO (07:57)
[2022-08-17] MEDS: FUROSEMIDE 40 MG TABLET 20 MG PO (07:57)
[2022-08-17] MEDS: SERTRALINE 50 MG TABLET PO (07:57)
[2022-08-17] MEDS: MEDROXYPROGESTERONE 5 MG TABLET 20 MG PO ×2 (07:57→16:32)
[2022-08-17] MEDS: POTASSIUM CHLORIDE 10 MEQ CAPSULE ER PO (07:57)
[2022-08-17] MEDS: SPIRONOLACTONE 25 MG TABLET PO (07:57)
[2022-08-17] MEDS: LORATADINE 10 MG TABLET PO (07:57)
[2022-08-17] MEDS: APIXABAN 5 MG TABLET PO ×2 (09:35→21:27)
[2022-08-17] MEDS: MELATONIN 3 MG TABLET 6 MG PO (19:23)
[2022-08-18] MEDS: CHOLESTYRAMINE POWDER 4 GM PO ×2 (08:50→17:11)
[2022-08-18] MEDS: FERROUS SULFATE 325 MG TABLET PO (08:50)
[2022-08-18] MEDS: LOPERAMIDE HCL 2 MG CAPSULE PO (08:51)
[2022-08-18] MEDS: FUROSEMIDE 40 MG TABLET 20 MG PO (08:51)
[2022-08-18] MEDS: LORATADINE 10 MG TABLET PO (08:51)
[2022-08-18] MEDS: LACTOBACILLUS ACIDOPHILUS 1 TABLET 1 TAB PO ×3 (08:51→17:10)
[2022-08-18] MEDS: METOPROLOL TARTRATE 100 MG TABLET 50 MG PO ×2 (08:51→15:32)
[2022-08-18] MEDS: POTASSIUM CHLORIDE 10 MEQ CAPSULE ER PO (08:51)
[2022-08-18] MEDS: SERTRALINE 50 MG TABLET PO (08:52)
[2022-08-18] MEDS: MEDROXYPROGESTERONE 5 MG TABLET 20 MG PO ×2 (08:52→15:32)
[2022-08-18] MEDS: APIXABAN 5 MG TABLET PO ×2 (08:52→20:06)
[2022-08-18] MEDS: SPIRONOLACTONE 25 MG TABLET PO (08:52)
[2022-08-18 08:57] VITALS: PULSE 72
[2022-08-18] MEDS: DIGOXIN 250 MCG TABLET PO (08:57)
--- NOTE | 2022-08-18 15:12 | PC.SOCIAL ---
Residents care conference was held today with resident and all members of the team present. Resident continues to work with therapy and her goal is to return home. Resident voiced concerns that her meat options are dry, and she does not get her wheat dinner roll when it is on the menu. Nutrition is aware and will talk to staff. Residents mood remains stablel no s/s of depression noted.
--- NOTE | 2022-08-18 15:14 | PC.SOCIAL ---
Addendum entered by Elsa Gonzalez LCSW 08/21/22 10:02: Contacted [facility] [phone] and confirmed that they will be picking resident up at noon on 08/28/2022 for her appointment in [place]. Original Note: Resident has a gynocology appointment on 08/28 at [facility] in [place] at 1pm. Called resident's [employer] [facility] insurance and they have scheduled pt. to be picked up by [facility] @ [phone] @ noon. Resident has been notified.
--- NOTE | 2022-08-18 15:45 | PC.NURSE ---
CARE CONFERENCE: Nursing, SW, dietary, and activities present. Resident present. Reviewed resident care, resident is able to ambulate with staff and can perform pivot transfers with 1 assist. Gaining independence with ADLs - resident notes that she is managing her bipap independently and is getting herself ready in the morning. Resident wishes to continue gaining independence and strength. I still have a long ways to go, but I am getting there. Resident is currently getting OT twice per week and PT 3 days per week. Resident notes this is going well. Resident has a gyno consult schedule for 08/28/22 and transportation has been scheduled by SW. Residents weight is stable, continue on double protein diet and high protein snack once per day. Resident did express some concerns with quality of meals--dam operator will follow up on this. Resident is FULL code. Is considered a vulnerable adult due to need for assistance with ADLs. No falls since admission. May consider going to a dental appt after she figures out her night baker diagnosis one thing at a time. Enjoys 1:1 visits with activites and blister rust eradicator visits. Has no desire to leave her room to socialize with other residents or go to activities. No skin issues noted at this time. Continues to wear SCD pumps. Resident would like to explore discharging to the community when the time comes.
[2022-08-18] MEDS: MELATONIN 3 MG TABLET 6 MG PO (20:06)
[2022-08-19] MEDS: FUROSEMIDE 40 MG TABLET 20 MG PO (08:31)
[2022-08-19] MEDS: FERROUS SULFATE 325 MG TABLET PO (08:31)
[2022-08-19] MEDS: METOPROLOL TARTRATE 100 MG TABLET 50 MG PO ×2 (08:31→15:59)
[2022-08-19] MEDS: LOPERAMIDE HCL 2 MG CAPSULE PO (08:31)
[2022-08-19] MEDS: CHOLESTYRAMINE POWDER 4 GM PO ×2 (08:31→17:16)
[2022-08-19] MEDS: LACTOBACILLUS ACIDOPHILUS 1 TABLET 1 TAB PO ×3 (08:32→17:16)
[2022-08-19] MEDS: LORATADINE 10 MG TABLET PO (08:32)
[2022-08-19] MEDS: SERTRALINE 50 MG TABLET PO (08:32)
[2022-08-19] MEDS: POTASSIUM CHLORIDE 10 MEQ CAPSULE ER PO (08:32)
[2022-08-19] MEDS: SPIRONOLACTONE 25 MG TABLET PO (08:32)
[2022-08-19] MEDS: MEDROXYPROGESTERONE 5 MG TABLET 20 MG PO ×2 (08:32→15:59)
[2022-08-19] MEDS: APIXABAN 5 MG TABLET PO ×2 (08:33→21:06)
[2022-08-19 08:49] VITALS: PULSE 64
[2022-08-19] MEDS: DIGOXIN 250 MCG TABLET PO (08:49)
[2022-08-19] MEDS: MELATONIN 3 MG TABLET 6 MG PO (21:06)
[2022-08-20 08:26] VITALS: PULSE 68
[2022-08-20] MEDS: FERROUS SULFATE 325 MG TABLET PO (08:26)
[2022-08-20] MEDS: FUROSEMIDE 40 MG TABLET 20 MG PO (08:26)
[2022-08-20] MEDS: METOPROLOL TARTRATE 100 MG TABLET 50 MG PO ×2 (08:26→15:50)
[2022-08-20] MEDS: DIGOXIN 250 MCG TABLET PO (08:26)
[2022-08-20] MEDS: CHOLESTYRAMINE POWDER 4 GM PO ×2 (08:26→17:14)
[2022-08-20] MEDS: LOPERAMIDE HCL 2 MG CAPSULE PO (08:26)
[2022-08-20] MEDS: LORATADINE 10 MG TABLET PO (08:26)
[2022-08-20] MEDS: SPIRONOLACTONE 25 MG TABLET PO (08:27)
[2022-08-20] MEDS: LACTOBACILLUS ACIDOPHILUS 1 TABLET 1 TAB PO ×3 (08:27→17:14)
[2022-08-20] MEDS: MEDROXYPROGESTERONE 5 MG TABLET 20 MG PO ×2 (08:27→15:50)
[2022-08-20] MEDS: SERTRALINE 50 MG TABLET PO (08:27)
[2022-08-20] MEDS: APIXABAN 5 MG TABLET PO ×2 (08:27→20:20)
[2022-08-20] MEDS: POTASSIUM CHLORIDE 10 MEQ CAPSULE ER PO (08:27)
[2022-08-20] MEDS: MELATONIN 3 MG TABLET 6 MG PO (20:20)
--- NOTE | 2022-08-21 01:11 | PC.NURSE ---
Weekly Charting Week 3: Toileting and Skin: Vital signs reviewed with no concerns. Comprehensive and temporary care plan reviewed with no changes made. Toileting: Res occasional incontinent of bladder, continent of bowel. Res put the call light when needed to use the toilet. May ambulate to commode with walker or transfer from wheelchair with SBA using gait belt. May use Medi stand assisted by 1 staff as needed. Alie cares, incontinent pad, and clothing adjustment managed by staff. Wears XX large briefs. Skin: Bilateral legs applied lotion every evening for dry skin. Skin check every? bath days and during cares.
[2022-08-21 08:20] VITALS: PULSE 74
[2022-08-21] MEDS: LOPERAMIDE HCL 2 MG CAPSULE PO (08:20)
[2022-08-21] MEDS: METOPROLOL TARTRATE 100 MG TABLET 50 MG PO ×2 (08:20→15:35)
[2022-08-21] MEDS: FUROSEMIDE 40 MG TABLET 20 MG PO (08:20)
[2022-08-21] MEDS: DIGOXIN 250 MCG TABLET PO (08:20)
[2022-08-21] MEDS: LORATADINE 10 MG TABLET PO (08:20)
[2022-08-21] MEDS: SPIRONOLACTONE 25 MG TABLET PO (08:20)
[2022-08-21] MEDS: SERTRALINE 50 MG TABLET PO (08:20)
[2022-08-21] MEDS: POTASSIUM CHLORIDE 10 MEQ CAPSULE ER PO (08:20)
[2022-08-21] MEDS: CHOLESTYRAMINE POWDER 4 GM PO ×2 (08:20→17:15)
[2022-08-21] MEDS: LACTOBACILLUS ACIDOPHILUS 1 TABLET 1 TAB PO ×3 (08:20→17:15)
[2022-08-21] MEDS: MEDROXYPROGESTERONE 5 MG TABLET 20 MG PO ×2 (08:20→15:35)
[2022-08-21] MEDS: FERROUS SULFATE 325 MG TABLET PO (08:20)
[2022-08-21] MEDS: APIXABAN 5 MG TABLET PO ×2 (09:31→20:37)
--- NOTE | 2022-08-21 10:45 | PC.NURSE ---
Weekly Charting, Week 3 - Toileting: Comprehensive and temporary care plan reviewed. No changes made, nothing added to temporary care plan. Resident dribbles urine. Continent of bowels. Staff toilet per her request. She may ambulate to commode with walker pr transfer from /c with SBA using gait belt for safety. Vital signs reviewed. Weights stable back to weekly. Skin: No issues at this time. Has wraps to bilateral lower extremities on-am, off-hs. Skin is checked routinely during cares and on bath days.
[2022-08-21] MEDS: MELATONIN 3 MG TABLET 6 MG PO (20:37)
[2022-08-22 08:31] VITALS: PULSE 70
[2022-08-22] MEDS: CHOLESTYRAMINE POWDER 4 GM PO ×2 (08:31→17:22)
[2022-08-22] MEDS: SPIRONOLACTONE 25 MG TABLET PO (08:31)
[2022-08-22] MEDS: MEDROXYPROGESTERONE 5 MG TABLET 20 MG PO ×2 (08:31→16:17)
[2022-08-22] MEDS: LORATADINE 10 MG TABLET PO (08:31)
[2022-08-22] MEDS: LOPERAMIDE HCL 2 MG CAPSULE PO (08:31)
[2022-08-22] MEDS: DIGOXIN 250 MCG TABLET PO (08:31)
[2022-08-22] MEDS: POTASSIUM CHLORIDE 10 MEQ CAPSULE ER PO (08:31)
[2022-08-22] MEDS: LACTOBACILLUS ACIDOPHILUS 1 TABLET 1 TAB PO ×3 (08:31→17:22)
[2022-08-22] MEDS: METOPROLOL TARTRATE 100 MG TABLET 50 MG PO ×2 (08:31→16:17)
[2022-08-22] MEDS: FERROUS SULFATE 325 MG TABLET PO (08:31)
[2022-08-22] MEDS: FUROSEMIDE 40 MG TABLET 20 MG PO (08:31)
[2022-08-22] MEDS: SERTRALINE 50 MG TABLET PO (08:32)
[2022-08-22] MEDS: APIXABAN 5 MG TABLET PO ×2 (08:32→20:35)
[2022-08-22 15:00] VITALS: BP 110/71; PULSE 73; RESP 18; TEMP 36.7; O2SAT 99; BMI 46.1
[2022-08-22] MEDS: MELATONIN 3 MG TABLET 6 MG PO (20:35)
[2022-08-23 08:20] VITALS: PULSE 66
[2022-08-23] MEDS: METOPROLOL TARTRATE 100 MG TABLET 50 MG PO ×2 (08:20→16:05)
[2022-08-23] MEDS: CHOLESTYRAMINE POWDER 4 GM PO ×2 (08:20→17:26)
[2022-08-23] MEDS: LOPERAMIDE HCL 2 MG CAPSULE PO (08:20)
[2022-08-23] MEDS: DIGOXIN 250 MCG TABLET PO (08:20)
[2022-08-23] MEDS: FERROUS SULFATE 325 MG TABLET PO (08:20)
[2022-08-23] MEDS: FUROSEMIDE 40 MG TABLET 20 MG PO (08:20)
[2022-08-23] MEDS: POTASSIUM CHLORIDE 10 MEQ CAPSULE ER PO (08:21)
[2022-08-23] MEDS: SERTRALINE 50 MG TABLET PO (08:21)
[2022-08-23] MEDS: SPIRONOLACTONE 25 MG TABLET PO (08:21)
[2022-08-23] MEDS: APIXABAN 5 MG TABLET PO ×2 (08:21→20:24)
[2022-08-23] MEDS: LORATADINE 10 MG TABLET PO (08:21)
[2022-08-23] MEDS: MEDROXYPROGESTERONE 5 MG TABLET 20 MG PO ×2 (08:21→16:05)
[2022-08-23] MEDS: LACTOBACILLUS ACIDOPHILUS 1 TABLET 1 TAB PO ×3 (08:21→17:26)
--- NOTE | 2022-08-23 09:54 | PC.NURSE ---
MDS Clarification: Discrenpancies in GIORGIO charting suspected. Staff were interviewed for clarification. BED MOBILITY: staff did not provide weight bearing or guided manuvering support during the lookback period, resident able to turn left to right independently during the lookback period. Coded independent. TRANSFERS: at least three times during the lookback period, staff provided non-weight bearing assistance. Coded limited assist. AMB IN AND OUT OF ROOM: Staff provided SBA, non-weight bearing support during the lookback. Coded as limited assist. LOC ON AND OFF UNIT: Resident is independent in her wheelchair on and off the unit. DRESSING: Resident required supervision at least three times during the lookback, coded as supervision/set up assist. EATING: Resident independent during the entire lookback period, did not need any assistance with set up. Coded as such. PERSONAL HYGIENE: Resident was independent during the entire lookback period, coded as such.
[2022-08-23] MEDS: MELATONIN 3 MG TABLET 6 MG PO (20:24)
[2022-08-24 08:07] VITALS: PULSE 74
[2022-08-24] MEDS: CHOLESTYRAMINE POWDER 4 GM PO ×2 (08:07→17:20)
[2022-08-24] MEDS: DIGOXIN 250 MCG TABLET PO (08:07)
[2022-08-24] MEDS: FERROUS SULFATE 325 MG TABLET PO (08:07)
[2022-08-24] MEDS: SERTRALINE 50 MG TABLET PO (08:08)
[2022-08-24] MEDS: LACTOBACILLUS ACIDOPHILUS 1 TABLET 1 TAB PO ×3 (08:08→16:38)
[2022-08-24] MEDS: FUROSEMIDE 40 MG TABLET 20 MG PO (08:08)
[2022-08-24] MEDS: POTASSIUM CHLORIDE 10 MEQ CAPSULE ER PO (08:08)
[2022-08-24] MEDS: METOPROLOL TARTRATE 100 MG TABLET 50 MG PO ×2 (08:08→15:57)
[2022-08-24] MEDS: APIXABAN 5 MG TABLET PO ×2 (08:08→20:02)
[2022-08-24] MEDS: LOPERAMIDE HCL 2 MG CAPSULE PO (08:08)
[2022-08-24] MEDS: MEDROXYPROGESTERONE 5 MG TABLET 20 MG PO ×2 (08:08→15:58)
[2022-08-24] MEDS: SPIRONOLACTONE 25 MG TABLET PO (08:08)
[2022-08-24] MEDS: LORATADINE 10 MG TABLET PO (08:08)
[2022-08-24] MEDS: MELATONIN 3 MG TABLET 6 MG PO (19:51)
[2022-08-25] MEDS: LOPERAMIDE HCL 2 MG CAPSULE PO (08:37)
[2022-08-25] MEDS: FUROSEMIDE 40 MG TABLET 20 MG PO (08:37)
[2022-08-25] MEDS: FERROUS SULFATE 325 MG TABLET PO (08:37)
[2022-08-25] MEDS: CHOLESTYRAMINE POWDER 4 GM PO ×2 (08:37→17:24)
[2022-08-25] MEDS: LORATADINE 10 MG TABLET PO (08:37)
[2022-08-25] MEDS: METOPROLOL TARTRATE 100 MG TABLET 50 MG PO ×2 (08:37→16:02)
[2022-08-25] MEDS: APIXABAN 5 MG TABLET PO ×2 (08:38→20:53)
[2022-08-25] MEDS: MEDROXYPROGESTERONE 5 MG TABLET 20 MG PO ×2 (08:38→16:02)
[2022-08-25] MEDS: SPIRONOLACTONE 25 MG TABLET PO (08:38)
[2022-08-25] MEDS: SERTRALINE 50 MG TABLET PO (08:38)
[2022-08-25] MEDS: LACTOBACILLUS ACIDOPHILUS 1 TABLET 1 TAB PO ×3 (08:38→16:39)
[2022-08-25] MEDS: POTASSIUM CHLORIDE 10 MEQ CAPSULE ER PO (08:38)
[2022-08-25 08:41] VITALS: PULSE 64
[2022-08-25] MEDS: DIGOXIN 250 MCG TABLET PO (08:41)
[2022-08-25] MEDS: MELATONIN 3 MG TABLET 6 MG PO (19:41)
--- NOTE | 2022-08-26 08:27 | PC.PHA1 ---
CONTROL SYSTEM COMPUTER SCIENTIST PHARMACIST'S MEDICATION REVIEW: MEDICATION MONITORING:Sertraline 50 mg IRREGULARITY OR COMMENTS: Per nursing notes patient continues to work on independence. She has oncology appointment 08/28/22, until then she continues with medroxyprogesterone for management of conference specialist. related bleeding. SUGGESTED COURSE OF ACTION TAKEN: No recommendations this review.
[2022-08-26] MEDS: LOPERAMIDE HCL 2 MG CAPSULE PO (08:44)
[2022-08-26] MEDS: FERROUS SULFATE 325 MG TABLET PO (08:44)
[2022-08-26] MEDS: CHOLESTYRAMINE POWDER 4 GM PO ×2 (08:44→17:24)
[2022-08-26] MEDS: FUROSEMIDE 40 MG TABLET 20 MG PO (08:44)
[2022-08-26] MEDS: POTASSIUM CHLORIDE 10 MEQ CAPSULE ER PO (08:46)
[2022-08-26] MEDS: LORATADINE 10 MG TABLET PO (08:46)
[2022-08-26] MEDS: MEDROXYPROGESTERONE 5 MG TABLET 20 MG PO ×2 (08:46→15:03)
[2022-08-26] MEDS: METOPROLOL TARTRATE 100 MG TABLET 50 MG PO ×2 (08:46→15:03)
[2022-08-26] MEDS: LACTOBACILLUS ACIDOPHILUS 1 TABLET 1 TAB PO ×3 (08:46→17:24)
[2022-08-26] MEDS: SPIRONOLACTONE 25 MG TABLET PO (08:47)
[2022-08-26] MEDS: SERTRALINE 50 MG TABLET PO (08:47)
[2022-08-26] MEDS: APIXABAN 5 MG TABLET PO ×2 (08:47→20:25)
[2022-08-26 08:49] VITALS: PULSE 72
[2022-08-26] MEDS: DIGOXIN 250 MCG TABLET PO (08:49)
[2022-08-26] MEDS: MELATONIN 3 MG TABLET 6 MG PO (20:25)
[2022-08-27 08:26] VITALS: PULSE 68
[2022-08-27] MEDS: FERROUS SULFATE 325 MG TABLET PO (08:26)
[2022-08-27] MEDS: LORATADINE 10 MG TABLET PO (08:26)
[2022-08-27] MEDS: CHOLESTYRAMINE POWDER 4 GM PO ×2 (08:26→17:02)
[2022-08-27] MEDS: LOPERAMIDE HCL 2 MG CAPSULE PO (08:26)
[2022-08-27] MEDS: MEDROXYPROGESTERONE 5 MG TABLET 20 MG PO ×2 (08:26→15:06)
[2022-08-27] MEDS: SPIRONOLACTONE 25 MG TABLET PO (08:26)
[2022-08-27] MEDS: METOPROLOL TARTRATE 100 MG TABLET 50 MG PO ×2 (08:26→15:06)
[2022-08-27] MEDS: SERTRALINE 50 MG TABLET PO (08:26)
[2022-08-27] MEDS: DIGOXIN 250 MCG TABLET PO (08:26)
[2022-08-27] MEDS: FUROSEMIDE 40 MG TABLET 20 MG PO (08:26)
[2022-08-27] MEDS: POTASSIUM CHLORIDE 10 MEQ CAPSULE ER PO (08:26)
[2022-08-27] MEDS: LACTOBACILLUS ACIDOPHILUS 1 TABLET 1 TAB PO ×3 (08:26→17:02)
[2022-08-27] MEDS: APIXABAN 5 MG TABLET PO ×2 (08:27→20:17)
[2022-08-27] MEDS: MELATONIN 3 MG TABLET 6 MG PO (20:17)
--- NOTE | 2022-08-28 00:53 | PC.NURSE ---
Weekly Charting Week 4: Vital signs reviewed with no concerns. Comprehensive and temporary care plan reviewed with no changes made. Nothing added to temporary care plan. No behavior recorder the past month. Currently on Sertraline 50mg daily and Melatonin? at HS. No visual, No hearing impairment. Cognition is intact. Able to communicate needs verbally. Able to use call light effectively. All medication administer by license nurse except Biotene keeps at bedtime to self administer. Health condition is? stable
--- NOTE | 2022-08-28 06:49 | PC.NURSE ---
Weekly Charting - Week 4: Comprehensive and temporary care plan reviewed. No changes made & nothing added to temporary care plan. No changes noted in communication, hearing, vision, or orientation. She does communicate needs & use the call light. Hearing and vision fine. Is cognitively intact. Vital signs reviewed, no concerns. Chronic health condition stable. Today, has an appointment with the clerical warehouseman. Nurse administers all medications except for Biotene spray which she can self administer and kept with her in room. Mood/Behavior: No issues. Continues on Zoloft 50mg daily and Melatonin 6 mg @ HS with no adverse effects noted. No changes in medication.
[2022-08-28] MEDS: CHOLESTYRAMINE POWDER 4 GM PO ×2 (08:14→17:36)
[2022-08-28] MEDS: FUROSEMIDE 40 MG TABLET 20 MG PO (08:14)
[2022-08-28] MEDS: FERROUS SULFATE 325 MG TABLET PO (08:14)
[2022-08-28] MEDS: LOPERAMIDE HCL 2 MG CAPSULE PO (08:15)
[2022-08-28] MEDS: METOPROLOL TARTRATE 100 MG TABLET 50 MG PO ×2 (08:15→17:35)
[2022-08-28] MEDS: POTASSIUM CHLORIDE 10 MEQ CAPSULE ER PO (08:15)
[2022-08-28] MEDS: LORATADINE 10 MG TABLET PO (08:15)
[2022-08-28] MEDS: MEDROXYPROGESTERONE 5 MG TABLET 20 MG PO ×2 (08:16→17:36)
[2022-08-28] MEDS: LACTOBACILLUS ACIDOPHILUS 1 TABLET 1 TAB PO ×3 (08:16→17:36)
[2022-08-28] MEDS: APIXABAN 5 MG TABLET PO ×2 (08:17→20:09)
[2022-08-28] MEDS: SPIRONOLACTONE 25 MG TABLET PO (08:17)
[2022-08-28] MEDS: SERTRALINE 50 MG TABLET PO (08:17)
[2022-08-28 08:48] VITALS: PULSE 64
[2022-08-28] MEDS: DIGOXIN 250 MCG TABLET PO (08:48)
--- NOTE | 2022-08-28 13:21 | PC.NURSE ---
Gyne appt: Resident left for gynae Appt at [facility] at 12noon with private transport. Lunch pack was sent with her. Resident was also requested PRN Tylenol to bring with her in the event she has pain after the procedure.
--- NOTE | 2022-08-28 17:48 | PC.NURSE ---
Resident return from MD appointment at 1730 with preop orders for surgery but no but no define procedure or anticipated date, will call and clarify on wednesday.
[2022-08-28] MEDS: MELATONIN 3 MG TABLET 6 MG PO (20:09)
[2022-08-29] MEDS: CHOLESTYRAMINE POWDER 4 GM PO ×2 (08:34→17:02)
[2022-08-29] MEDS: FERROUS SULFATE 325 MG TABLET PO (08:34)
[2022-08-29] MEDS: FUROSEMIDE 40 MG TABLET 20 MG PO (08:34)
[2022-08-29] MEDS: LOPERAMIDE HCL 2 MG CAPSULE PO (08:34)
[2022-08-29] MEDS: POTASSIUM CHLORIDE 10 MEQ CAPSULE ER PO (08:35)
[2022-08-29] MEDS: LACTOBACILLUS ACIDOPHILUS 1 TABLET 1 TAB PO ×3 (08:35→16:58)
[2022-08-29] MEDS: LORATADINE 10 MG TABLET PO (08:35)
[2022-08-29] MEDS: METOPROLOL TARTRATE 100 MG TABLET 50 MG PO ×2 (08:35→15:33)
[2022-08-29] MEDS: SERTRALINE 50 MG TABLET PO (08:35)
[2022-08-29] MEDS: MEDROXYPROGESTERONE 5 MG TABLET 20 MG PO ×2 (08:35→15:33)
[2022-08-29] MEDS: SPIRONOLACTONE 25 MG TABLET PO (08:35)
[2022-08-29] MEDS: APIXABAN 5 MG TABLET PO ×2 (08:36→20:05)
[2022-08-29 08:43] VITALS: PULSE 64
[2022-08-29] MEDS: DIGOXIN 250 MCG TABLET PO (08:43)
[2022-08-29 15:00] VITALS: BP 103/69; PULSE 68; RESP 18; TEMP 36.4; O2SAT 99
[2022-08-29] MEDS: MELATONIN 3 MG TABLET 6 MG PO (20:05)
--- NOTE | 2022-08-29 21:11 | PC.NURSE ---
Histopath Tech spoke with Resident about her preop and she said that she made a hysterectomy appointment for September 28, with the following orders, do not eat or drink anything and no gum chewing after mid night on September 27, do not take aspirin , non steroidal, anti inflammatory agent (e.g ibuprofen, motrin, advil, aleve ) or other medications that affect blood clotting for at least one week prior to surgery. some herbal/supplemental preparations (e.g Ginko ,Garlic Fish oil, Vitamin E ) can affect bleeding, check with your prescribing physician and discontinue these substances, You may take ( e.g Tylenol ) or non aspirin or NSAID pain reliever( e.g Tylenol # 3, Vicodin, Darvocet and percocet) Tylenol is ok
[2022-08-29 23:00] VITALS: BMI 44.4
[2022-08-30] MEDS: CHOLESTYRAMINE POWDER 4 GM PO ×2 (08:45→17:06)
[2022-08-30] MEDS: LOPERAMIDE HCL 2 MG CAPSULE PO (08:46)
[2022-08-30] MEDS: METOPROLOL TARTRATE 100 MG TABLET 50 MG PO ×2 (08:46→15:38)
[2022-08-30] MEDS: FUROSEMIDE 40 MG TABLET 20 MG PO (08:46)
[2022-08-30] MEDS: LACTOBACILLUS ACIDOPHILUS 1 TABLET 1 TAB PO ×3 (08:47→17:06)
[2022-08-30] MEDS: POTASSIUM CHLORIDE 10 MEQ CAPSULE ER PO (08:47)
[2022-08-30] MEDS: LORATADINE 10 MG TABLET PO (08:47)
[2022-08-30] MEDS: SERTRALINE 50 MG TABLET PO (08:47)
[2022-08-30] MEDS: MEDROXYPROGESTERONE 5 MG TABLET 20 MG PO ×2 (08:47→15:38)
[2022-08-30] MEDS: SPIRONOLACTONE 25 MG TABLET PO (08:47)
[2022-08-30] MEDS: FERROUS SULFATE 325 MG TABLET PO (08:48)
[2022-08-30] MEDS: APIXABAN 5 MG TABLET PO ×2 (08:48→21:13)
[2022-08-30 08:54] VITALS: PULSE 70
[2022-08-30] MEDS: DIGOXIN 250 MCG TABLET PO (08:54)
[2022-08-30] MEDS: MELATONIN 3 MG TABLET 6 MG PO (21:13)
[2022-08-31] MEDS: CHOLESTYRAMINE POWDER 4 GM PO ×2 (08:43→17:05)
[2022-08-31] MEDS: FERROUS SULFATE 325 MG TABLET PO (08:44)
[2022-08-31] MEDS: FUROSEMIDE 40 MG TABLET 20 MG PO (08:44)
[2022-08-31] MEDS: LOPERAMIDE HCL 2 MG CAPSULE PO (08:45)
[2022-08-31] MEDS: LORATADINE 10 MG TABLET PO (08:45)
[2022-08-31] MEDS: POTASSIUM CHLORIDE 10 MEQ CAPSULE ER PO (08:45)
[2022-08-31] MEDS: LACTOBACILLUS ACIDOPHILUS 1 TABLET 1 TAB PO ×3 (08:45→17:05)
[2022-08-31] MEDS: SPIRONOLACTONE 25 MG TABLET PO (08:45)
[2022-08-31] MEDS: MEDROXYPROGESTERONE 5 MG TABLET 20 MG PO ×2 (08:45→16:45)
[2022-08-31] MEDS: METOPROLOL TARTRATE 100 MG TABLET 50 MG PO ×2 (08:45→16:45)
[2022-08-31] MEDS: APIXABAN 5 MG TABLET PO ×2 (08:46→20:07)
[2022-08-31] MEDS: SERTRALINE 50 MG TABLET PO (08:46)
[2022-08-31 08:49] VITALS: PULSE 72
[2022-08-31] MEDS: DIGOXIN 250 MCG TABLET PO (08:49)
--- NOTE | 2022-08-31 13:04 | PC.NURSE ---
Attempted to get more information about planned surgical hysterectomy with /Karen Lorenzo at [facility]. Left voice message with senior ios developer ([phone]) requesting call back with time and date of surgery. Awaiting call back.
[2022-08-31] MEDS: MELATONIN 3 MG TABLET 6 MG PO (20:07)
[2022-09-01 08:07] VITALS: PULSE 68
[2022-09-01] MEDS: FUROSEMIDE 40 MG TABLET 20 MG PO (08:07)
[2022-09-01] MEDS: DIGOXIN 250 MCG TABLET PO (08:07)
[2022-09-01] MEDS: CHOLESTYRAMINE POWDER 4 GM PO ×2 (08:07→17:13)
[2022-09-01] MEDS: MEDROXYPROGESTERONE 5 MG TABLET 20 MG PO ×2 (08:07→15:31)
[2022-09-01] MEDS: SPIRONOLACTONE 25 MG TABLET PO (08:07)
[2022-09-01] MEDS: POTASSIUM CHLORIDE 10 MEQ CAPSULE ER PO (08:07)
[2022-09-01] MEDS: LACTOBACILLUS ACIDOPHILUS 1 TABLET 1 TAB PO ×3 (08:07→17:13)
[2022-09-01] MEDS: LORATADINE 10 MG TABLET PO (08:07)
[2022-09-01] MEDS: LOPERAMIDE HCL 2 MG CAPSULE PO (08:07)
[2022-09-01] MEDS: METOPROLOL TARTRATE 100 MG TABLET 50 MG PO ×2 (08:07→15:30)
[2022-09-01] MEDS: FERROUS SULFATE 325 MG TABLET PO (08:07)
[2022-09-01] MEDS: SERTRALINE 50 MG TABLET PO (08:24)
[2022-09-01] MEDS: APIXABAN 5 MG TABLET PO ×2 (08:24→20:20)
[2022-09-01] MEDS: MELATONIN 3 MG TABLET 6 MG PO (20:20)
[2022-09-02] MEDS: FERROUS SULFATE 325 MG TABLET PO (08:26)
[2022-09-02] MEDS: CHOLESTYRAMINE POWDER 4 GM PO ×2 (08:26→17:28)
[2022-09-02] MEDS: FUROSEMIDE 40 MG TABLET 20 MG PO (08:26)
[2022-09-02] MEDS: POTASSIUM CHLORIDE 10 MEQ CAPSULE ER PO (08:27)
[2022-09-02] MEDS: SERTRALINE 50 MG TABLET PO (08:27)
[2022-09-02] MEDS: SPIRONOLACTONE 25 MG TABLET PO (08:27)
[2022-09-02] MEDS: LACTOBACILLUS ACIDOPHILUS 1 TABLET 1 TAB PO ×3 (08:27→17:28)
[2022-09-02] MEDS: METOPROLOL TARTRATE 100 MG TABLET 50 MG PO ×2 (08:27→16:06)
[2022-09-02] MEDS: LOPERAMIDE HCL 2 MG CAPSULE PO (08:27)
[2022-09-02] MEDS: LORATADINE 10 MG TABLET PO (08:27)
[2022-09-02] MEDS: MEDROXYPROGESTERONE 5 MG TABLET 20 MG PO ×2 (08:27→16:06)
[2022-09-02] MEDS: APIXABAN 5 MG TABLET PO ×2 (08:28→20:29)
[2022-09-02 08:30] VITALS: PULSE 64
[2022-09-02] MEDS: DIGOXIN 250 MCG TABLET PO (08:30)
--- NOTE | 2022-09-02 16:33 | NUTR.NU ---
Received return call from learning program manager at [facility]. Spoke with Zoila ([phone]) who relayed the following information: Emily is scheduled for surgery at [facility] ([address] ? drop off at door #2) on WednesdaySeptember AT 2:30pm. She will need to arrive at the hospital by 12:30pm. Laverne is helping to arrange transportation for her. She will likely stay at the hospital after surgery for a few days. Emily will need a pre-op physical within 30 days of her surgery. The office said they sent a list back with her pre-op physical needs (labs, etc). If this list is not found, staff to inform this music writer to call and get information. Emily must be off all blood thinners one week prior to surgery. If Eimly has ANY signs or symptoms of illness the learning program manager must be contacted ([phone]) and she will be rescheduled. Emily should not have any food or drink after midnight the night before her surgery. This information was relayed to care team via E-mail and written message to tobacco conditionerJasmina.
[2022-09-02] MEDS: MELATONIN 3 MG TABLET 6 MG PO (20:29)
[2022-09-03] MEDS: LOPERAMIDE HCL 2 MG CAPSULE PO (08:36)
[2022-09-03] MEDS: FUROSEMIDE 40 MG TABLET 20 MG PO (08:36)
[2022-09-03] MEDS: CHOLESTYRAMINE POWDER 4 GM PO ×2 (08:36→17:01)
[2022-09-03] MEDS: FERROUS SULFATE 325 MG TABLET PO (08:36)
[2022-09-03] MEDS: LORATADINE 10 MG TABLET PO (08:37)
[2022-09-03] MEDS: POTASSIUM CHLORIDE 10 MEQ CAPSULE ER PO (08:37)
[2022-09-03] MEDS: METOPROLOL TARTRATE 100 MG TABLET 50 MG PO ×2 (08:37→15:24)
[2022-09-03] MEDS: MEDROXYPROGESTERONE 5 MG TABLET 20 MG PO ×2 (08:38→15:25)
[2022-09-03] MEDS: LACTOBACILLUS ACIDOPHILUS 1 TABLET 1 TAB PO ×3 (08:38→17:01)
[2022-09-03] MEDS: SPIRONOLACTONE 25 MG TABLET PO (08:38)
[2022-09-03] MEDS: SERTRALINE 50 MG TABLET PO (08:39)
[2022-09-03] MEDS: APIXABAN 5 MG TABLET PO ×2 (08:39→20:02)
[2022-09-03 08:43] VITALS: PULSE 70
[2022-09-03] MEDS: DIGOXIN 250 MCG TABLET PO (08:43)
[2022-09-03] MEDS: MELATONIN 3 MG TABLET 6 MG PO (20:02)
--- NOTE | 2022-09-04 03:22 | PC.NURSE ---
Weekly Charting-Week 1: Reviewed her vital signs and were stable. No changes made on the Temporary or Comprehensive Care Plans. She has history with knee pain. She has had no complaints of pain this month. She is not on a scheduled pain medication but can request Tylenol 975mg Q 8hrs. She receives assist of 1-2 for bathing and dressing. Can do grooming and oral cares after set up independantly. She receives a regular diet/regular texture with thin liquids and requests extra portions of protein. Takes all her meals in her room. Has no issues with coughing or choking on food.
[2022-09-04] MEDS: CHOLESTYRAMINE POWDER 4 GM PO ×2 (08:24→17:11)
[2022-09-04 08:25] VITALS: PULSE 70
[2022-09-04] MEDS: DIGOXIN 250 MCG TABLET PO (08:25)
[2022-09-04] MEDS: FUROSEMIDE 40 MG TABLET 20 MG PO (08:25)
[2022-09-04] MEDS: FERROUS SULFATE 325 MG TABLET PO (08:25)
[2022-09-04] MEDS: METOPROLOL TARTRATE 100 MG TABLET 50 MG PO ×2 (08:26→15:11)
[2022-09-04] MEDS: LORATADINE 10 MG TABLET PO (08:26)
[2022-09-04] MEDS: LOPERAMIDE HCL 2 MG CAPSULE PO (08:26)
[2022-09-04] MEDS: LACTOBACILLUS ACIDOPHILUS 1 TABLET 1 TAB PO ×3 (08:27→17:11)
[2022-09-04] MEDS: POTASSIUM CHLORIDE 10 MEQ CAPSULE ER PO (08:27)
[2022-09-04] MEDS: MEDROXYPROGESTERONE 5 MG TABLET 20 MG PO ×2 (08:27→15:11)
[2022-09-04] MEDS: SERTRALINE 50 MG TABLET PO (08:28)
[2022-09-04] MEDS: SPIRONOLACTONE 25 MG TABLET PO (08:28)
[2022-09-04] MEDS: APIXABAN 5 MG TABLET PO ×2 (09:28→21:01)
--- NOTE | 2022-09-04 11:39 | PC.NURSE ---
Weekly Charting, Week 1 - ADL's: Comprehensive and temporary care plan reviewed. No changes made, & nothing added to temporary care plan. Resident needs one assist with dressing lower half, is able to do upper half dressing. Staff to apply compression wraps to BLE on - AM, remove at HS. Grooming, oral cares, and feeding done independently after set up. Needs 2 assists with bed bath. Is on regular diet, double protein portions. No problem with chewing/swallowing reported. Vital signs reviewed, no concerns. Weights stable.Continue weekly monitoring. Pain: Has history of knee pain. No complain the past month. Is on no schedule pain medication. Has an order Tylenol 975mg PRN, has used sparingly. Resident is able to make needs known.
[2022-09-04] MEDS: MELATONIN 3 MG TABLET 6 MG PO (21:01)
[2022-09-05 08:27] VITALS: PULSE 74
[2022-09-05] MEDS: CHOLESTYRAMINE POWDER 4 GM PO ×2 (08:27→17:19)
[2022-09-05] MEDS: FUROSEMIDE 40 MG TABLET 20 MG PO (08:27)
[2022-09-05] MEDS: FERROUS SULFATE 325 MG TABLET PO (08:27)
[2022-09-05] MEDS: DIGOXIN 250 MCG TABLET PO (08:27)
[2022-09-05] MEDS: METOPROLOL TARTRATE 100 MG TABLET 50 MG PO ×2 (08:28→15:53)
[2022-09-05] MEDS: LOPERAMIDE HCL 2 MG CAPSULE PO (08:28)
[2022-09-05] MEDS: MEDROXYPROGESTERONE 5 MG TABLET 20 MG PO ×2 (08:28→15:53)
[2022-09-05] MEDS: SERTRALINE 50 MG TABLET PO (08:28)
[2022-09-05] MEDS: APIXABAN 5 MG TABLET PO ×2 (08:28→21:08)
[2022-09-05] MEDS: LORATADINE 10 MG TABLET PO (08:28)
[2022-09-05] MEDS: SPIRONOLACTONE 25 MG TABLET PO (08:28)
[2022-09-05] MEDS: POTASSIUM CHLORIDE 10 MEQ CAPSULE ER PO (08:28)
[2022-09-05] MEDS: LACTOBACILLUS ACIDOPHILUS 1 TABLET 1 TAB PO ×3 (08:28→17:19)
[2022-09-05 15:00] VITALS: BP 118/74; PULSE 72; RESP 19; TEMP 36.8; O2SAT 99; BMI 43.6
[2022-09-05] MEDS: MELATONIN 3 MG TABLET 6 MG PO (21:08)
[2022-09-06] MEDS: FERROUS SULFATE 325 MG TABLET PO (08:22)
[2022-09-06] MEDS: CHOLESTYRAMINE POWDER 4 GM PO ×2 (08:22→17:08)
[2022-09-06 08:24] VITALS: PULSE 68
[2022-09-06] MEDS: SERTRALINE 50 MG TABLET PO (08:24)
[2022-09-06] MEDS: LOPERAMIDE HCL 2 MG CAPSULE PO (08:24)
[2022-09-06] MEDS: LACTOBACILLUS ACIDOPHILUS 1 TABLET 1 TAB PO ×3 (08:24→17:08)
[2022-09-06] MEDS: METOPROLOL TARTRATE 100 MG TABLET 50 MG PO ×2 (08:24→15:41)
[2022-09-06] MEDS: POTASSIUM CHLORIDE 10 MEQ CAPSULE ER PO (08:24)
[2022-09-06] MEDS: SPIRONOLACTONE 25 MG TABLET PO (08:24)
[2022-09-06] MEDS: MEDROXYPROGESTERONE 5 MG TABLET 20 MG PO ×2 (08:24→15:41)
[2022-09-06] MEDS: FUROSEMIDE 40 MG TABLET 20 MG PO (08:24)
[2022-09-06] MEDS: DIGOXIN 250 MCG TABLET PO (08:24)
[2022-09-06] MEDS: LORATADINE 10 MG TABLET PO (08:24)
[2022-09-06] MEDS: APIXABAN 5 MG TABLET PO ×2 (08:36→20:11)
[2022-09-06] MEDS: MELATONIN 3 MG TABLET 6 MG PO (20:11)
[2022-09-07 08:23] VITALS: PULSE 70
[2022-09-07] MEDS: METOPROLOL TARTRATE 100 MG TABLET 50 MG PO ×2 (08:23→16:06)
[2022-09-07] MEDS: LOPERAMIDE HCL 2 MG CAPSULE PO (08:23)
[2022-09-07] MEDS: FERROUS SULFATE 325 MG TABLET PO (08:23)
[2022-09-07] MEDS: POTASSIUM CHLORIDE 10 MEQ CAPSULE ER PO (08:23)
[2022-09-07] MEDS: CHOLESTYRAMINE POWDER 4 GM PO ×2 (08:23→17:08)
[2022-09-07] MEDS: FUROSEMIDE 40 MG TABLET 20 MG PO (08:23)
[2022-09-07] MEDS: DIGOXIN 250 MCG TABLET PO (08:23)
[2022-09-07] MEDS: LORATADINE 10 MG TABLET PO (08:23)
[2022-09-07] MEDS: SERTRALINE 50 MG TABLET PO (08:24)
[2022-09-07] MEDS: SPIRONOLACTONE 25 MG TABLET PO (08:24)
[2022-09-07] MEDS: LACTOBACILLUS ACIDOPHILUS 1 TABLET 1 TAB PO ×3 (08:24→16:49)
[2022-09-07] MEDS: MEDROXYPROGESTERONE 5 MG TABLET 20 MG PO ×2 (08:24→16:06)
[2022-09-07] MEDS: APIXABAN 5 MG TABLET PO ×2 (09:27→20:19)
--- NOTE | 2022-09-07 11:49 | PC.SPIRITC ---
Provided visit for connection and support.
--- NOTE | 2022-09-07 12:26 | PC.NURSE ---
Order note: Per PEARL HAND sidney Ruiz for patient to self-administer Melatonin (please complete assessment).
--- NOTE | 2022-09-07 13:27 | PC.NURSE ---
Discussed self administration of Melatonin with resident. Resident stated that she wanted to take her Melatonin later, at 2200 instead of 2000, as she typically goes to bed later in the evening and was hoping staff could leave the medication at her bedside. After reviewing self-admin process with resident, it was determined it would be best to change administration time to 2200 since resident did not want staff to return later in the night to verify the medication had been taken.
[2022-09-07] MEDS: MELATONIN 3 MG TABLET 6 MG PO (22:15)
[2022-09-08] MEDS: CHOLESTYRAMINE POWDER 4 GM PO ×2 (08:53→17:06)
[2022-09-08] MEDS: FERROUS SULFATE 325 MG TABLET PO (08:53)
[2022-09-08] MEDS: METOPROLOL TARTRATE 100 MG TABLET 50 MG PO ×2 (08:54→15:32)
[2022-09-08] MEDS: FUROSEMIDE 40 MG TABLET 20 MG PO (08:54)
[2022-09-08] MEDS: LOPERAMIDE HCL 2 MG CAPSULE PO (08:54)
[2022-09-08] MEDS: SPIRONOLACTONE 25 MG TABLET PO (08:55)
[2022-09-08] MEDS: LACTOBACILLUS ACIDOPHILUS 1 TABLET 1 TAB PO ×3 (08:55→17:06)
[2022-09-08] MEDS: SERTRALINE 50 MG TABLET PO (08:55)
[2022-09-08] MEDS: POTASSIUM CHLORIDE 10 MEQ CAPSULE ER PO (08:55)
[2022-09-08] MEDS: LORATADINE 10 MG TABLET PO (08:55)
[2022-09-08] MEDS: MEDROXYPROGESTERONE 5 MG TABLET 20 MG PO ×2 (08:55→15:33)
[2022-09-08] MEDS: APIXABAN 5 MG TABLET PO ×2 (08:56→21:10)
[2022-09-08 08:59] VITALS: PULSE 68
[2022-09-08] MEDS: DIGOXIN 250 MCG TABLET PO (08:59)
[2022-09-08] MEDS: MELATONIN 3 MG TABLET 6 MG PO (21:10)
[2022-09-09 08:01] VITALS: PULSE 72
[2022-09-09] MEDS: FERROUS SULFATE 325 MG TABLET PO (08:01)
[2022-09-09] MEDS: APIXABAN 5 MG TABLET PO ×2 (08:01→20:35)
[2022-09-09] MEDS: CHOLESTYRAMINE POWDER 4 GM PO ×2 (08:01→17:21)
[2022-09-09] MEDS: LACTOBACILLUS ACIDOPHILUS 1 TABLET 1 TAB PO ×3 (08:01→17:21)
[2022-09-09] MEDS: DIGOXIN 250 MCG TABLET PO (08:01)
[2022-09-09] MEDS: SERTRALINE 50 MG TABLET PO (08:02)
[2022-09-09] MEDS: LORATADINE 10 MG TABLET PO (08:02)
[2022-09-09] MEDS: POTASSIUM CHLORIDE 10 MEQ CAPSULE ER PO (08:02)
[2022-09-09] MEDS: METOPROLOL TARTRATE 100 MG TABLET 50 MG PO ×2 (08:02→15:54)
[2022-09-09] MEDS: SPIRONOLACTONE 25 MG TABLET PO (08:02)
[2022-09-09] MEDS: FUROSEMIDE 40 MG TABLET 20 MG PO (08:02)
[2022-09-09] MEDS: LOPERAMIDE HCL 2 MG CAPSULE PO (08:02)
[2022-09-09] MEDS: MEDROXYPROGESTERONE 5 MG TABLET 20 MG PO ×2 (08:05→15:54)
[2022-09-09 12:47] VITALS: BMI 42.9
[2022-09-09] MEDS: MELATONIN 3 MG TABLET 6 MG PO (20:35)
[2022-09-10 08:25] VITALS: PULSE 74
[2022-09-10] MEDS: FERROUS SULFATE 325 MG TABLET PO (08:25)
[2022-09-10] MEDS: CHOLESTYRAMINE POWDER 4 GM PO ×2 (08:25→17:04)
[2022-09-10] MEDS: DIGOXIN 250 MCG TABLET PO (08:25)
[2022-09-10] MEDS: POTASSIUM CHLORIDE 10 MEQ CAPSULE ER PO (08:26)
[2022-09-10] MEDS: LACTOBACILLUS ACIDOPHILUS 1 TABLET 1 TAB PO ×3 (08:26→17:04)
[2022-09-10] MEDS: METOPROLOL TARTRATE 100 MG TABLET 50 MG PO ×2 (08:26→15:06)
[2022-09-10] MEDS: APIXABAN 5 MG TABLET PO ×2 (08:26→20:04)
[2022-09-10] MEDS: MEDROXYPROGESTERONE 5 MG TABLET 20 MG PO ×2 (08:26→15:06)
[2022-09-10] MEDS: LORATADINE 10 MG TABLET PO (08:26)
[2022-09-10] MEDS: SPIRONOLACTONE 25 MG TABLET PO (08:26)
[2022-09-10] MEDS: LOPERAMIDE HCL 2 MG CAPSULE PO (08:26)
[2022-09-10] MEDS: SERTRALINE 50 MG TABLET PO (08:26)
[2022-09-10] MEDS: FUROSEMIDE 40 MG TABLET 20 MG PO (08:26)
[2022-09-10] MEDS: MELATONIN 3 MG TABLET 6 MG PO (20:04)
--- NOTE | 2022-09-11 00:59 | PC.NURSE ---
Weekly Charting week 2. Mobility. Vital signs reviewed with no concerns. Comprehensive and temporary care plan reviewed with no changes made. Res requires 1 staff assist with the use of EZ Stand for transfer. Has 1/4 side rails to promoted independent bed mobility. Able to propel wheelchair independent in the room. Nursing to ambulate with patient x2/day (AM/PM) in hallway with rolling walker. Don gait belt prior and follow closely with wheelchair. Patient use one arm rest and rail in hallway to stand with walker, SBA . Have patient attempt to ambulate as far as she can, aiming 3 trial.? Fall risk assessment indicates Res is a low fall risk. Fall prevention: call light within reach, Bed in low position with brakes on, Wear no slips socks
[2022-09-11] MEDS: POTASSIUM CHLORIDE 10 MEQ CAPSULE ER PO (08:19)
[2022-09-11] MEDS: METOPROLOL TARTRATE 100 MG TABLET 50 MG PO ×2 (08:19→15:41)
[2022-09-11] MEDS: LORATADINE 10 MG TABLET PO (08:19)
[2022-09-11] MEDS: LOPERAMIDE HCL 2 MG CAPSULE PO (08:19)
[2022-09-11] MEDS: FERROUS SULFATE 325 MG TABLET PO (08:19)
[2022-09-11] MEDS: FUROSEMIDE 40 MG TABLET 20 MG PO (08:19)
[2022-09-11] MEDS: MEDROXYPROGESTERONE 5 MG TABLET 20 MG PO ×2 (08:19→15:41)
[2022-09-11] MEDS: DIGOXIN 250 MCG TABLET PO (08:19)
[2022-09-11] MEDS: LACTOBACILLUS ACIDOPHILUS 1 TABLET 1 TAB PO ×3 (08:19→17:05)
[2022-09-11] MEDS: APIXABAN 5 MG TABLET PO ×2 (08:19→20:18)
[2022-09-11] MEDS: CHOLESTYRAMINE POWDER 4 GM PO ×2 (08:19→17:05)
[2022-09-11] MEDS: SPIRONOLACTONE 25 MG TABLET PO (08:19)
[2022-09-11] MEDS: SERTRALINE 50 MG TABLET PO (08:19)
--- NOTE | 2022-09-11 13:26 | PC.NURSE ---
Weekly Charting-Week 2: Vital signs, care plan and temporary care plan reviewed with no changes made. Resident is one assist with all bed mobility and one assist with medi stand with all transfers. Residents fall risk is a 7 (low fall risk) no interventions in place to prevent falls. Resident is on an ambulation program that she is complying with.
[2022-09-11] MEDS: MELATONIN 3 MG TABLET 6 MG PO (20:18)
[2022-09-12] MEDS: CHOLESTYRAMINE POWDER 4 GM PO ×2 (08:37→17:06)
[2022-09-12] MEDS: LORATADINE 10 MG TABLET PO (08:38)
[2022-09-12] MEDS: FUROSEMIDE 40 MG TABLET 20 MG PO (08:38)
[2022-09-12] MEDS: METOPROLOL TARTRATE 100 MG TABLET 50 MG PO ×2 (08:38→16:21)
[2022-09-12] MEDS: POTASSIUM CHLORIDE 10 MEQ CAPSULE ER PO (08:38)
[2022-09-12] MEDS: LOPERAMIDE HCL 2 MG CAPSULE PO (08:38)
[2022-09-12] MEDS: FERROUS SULFATE 325 MG TABLET PO (08:38)
[2022-09-12] MEDS: SPIRONOLACTONE 25 MG TABLET PO (08:39)
[2022-09-12] MEDS: MEDROXYPROGESTERONE 5 MG TABLET 20 MG PO ×2 (08:39→16:21)
[2022-09-12] MEDS: LACTOBACILLUS ACIDOPHILUS 1 TABLET 1 TAB PO ×3 (08:39→17:06)
[2022-09-12] MEDS: SERTRALINE 50 MG TABLET PO (08:40)
[2022-09-12] MEDS: APIXABAN 5 MG TABLET PO ×2 (08:40→20:17)
[2022-09-12 08:42] VITALS: PULSE 76
[2022-09-12] MEDS: DIGOXIN 250 MCG TABLET PO (08:42)
[2022-09-12 15:00] VITALS: BP 103/57; PULSE 82; RESP 18; TEMP 36.7
[2022-09-12] MEDS: MELATONIN 3 MG TABLET 6 MG PO (20:17)
[2022-09-13] MEDS: CHOLESTYRAMINE POWDER 4 GM PO ×2 (08:49→17:03)
[2022-09-13] MEDS: LOPERAMIDE HCL 2 MG CAPSULE PO (08:50)
[2022-09-13] MEDS: FERROUS SULFATE 325 MG TABLET PO (08:50)
[2022-09-13] MEDS: METOPROLOL TARTRATE 100 MG TABLET 50 MG PO ×2 (08:50→15:51)
[2022-09-13] MEDS: FUROSEMIDE 40 MG TABLET 20 MG PO (08:50)
[2022-09-13] MEDS: LORATADINE 10 MG TABLET PO (08:50)
[2022-09-13] MEDS: POTASSIUM CHLORIDE 10 MEQ CAPSULE ER PO (08:50)
[2022-09-13] MEDS: APIXABAN 5 MG TABLET PO ×2 (08:51→20:16)
[2022-09-13] MEDS: SERTRALINE 50 MG TABLET PO (08:51)
[2022-09-13] MEDS: LACTOBACILLUS ACIDOPHILUS 1 TABLET 1 TAB PO ×3 (08:51→17:03)
[2022-09-13] MEDS: SPIRONOLACTONE 25 MG TABLET PO (08:51)
[2022-09-13] MEDS: MEDROXYPROGESTERONE 5 MG TABLET 20 MG PO ×2 (08:51→15:51)
[2022-09-13 08:53] VITALS: PULSE 68
[2022-09-13] MEDS: DIGOXIN 250 MCG TABLET PO (08:53)
[2022-09-13] MEDS: MELATONIN 3 MG TABLET 6 MG PO (20:16)
[2022-09-14 08:30] VITALS: PULSE 70
[2022-09-14] MEDS: DIGOXIN 250 MCG TABLET PO (08:30)
[2022-09-14] MEDS: FERROUS SULFATE 325 MG TABLET PO (08:30)
[2022-09-14] MEDS: CHOLESTYRAMINE POWDER 4 GM PO ×2 (08:30→17:04)
[2022-09-14] MEDS: LOPERAMIDE HCL 2 MG CAPSULE PO (08:31)
[2022-09-14] MEDS: METOPROLOL TARTRATE 100 MG TABLET 50 MG PO ×2 (08:31→15:55)
[2022-09-14] MEDS: FUROSEMIDE 40 MG TABLET 20 MG PO (08:31)
[2022-09-14] MEDS: LACTOBACILLUS ACIDOPHILUS 1 TABLET 1 TAB PO ×3 (08:32→16:39)
[2022-09-14] MEDS: POTASSIUM CHLORIDE 10 MEQ CAPSULE ER PO (08:32)
[2022-09-14] MEDS: LORATADINE 10 MG TABLET PO (08:32)
[2022-09-14] MEDS: MEDROXYPROGESTERONE 5 MG TABLET 20 MG PO ×2 (08:32→15:55)
[2022-09-14] MEDS: SPIRONOLACTONE 25 MG TABLET PO (08:33)
[2022-09-14] MEDS: SERTRALINE 50 MG TABLET PO (08:33)
[2022-09-14] MEDS: APIXABAN 5 MG TABLET PO ×2 (09:33→20:36)
[2022-09-14] MEDS: MELATONIN 3 MG TABLET 6 MG PO (19:41)
[2022-09-15] MEDS: CHOLESTYRAMINE POWDER 4 GM PO ×2 (08:35→17:03)
[2022-09-15 08:36] VITALS: PULSE 68
[2022-09-15] MEDS: FERROUS SULFATE 325 MG TABLET PO (08:36)
[2022-09-15] MEDS: DIGOXIN 250 MCG TABLET PO (08:36)
[2022-09-15] MEDS: FUROSEMIDE 40 MG TABLET 20 MG PO (08:37)
[2022-09-15] MEDS: LOPERAMIDE HCL 2 MG CAPSULE PO (08:37)
[2022-09-15] MEDS: METOPROLOL TARTRATE 100 MG TABLET 50 MG PO ×2 (08:37→15:27)
[2022-09-15] MEDS: POTASSIUM CHLORIDE 10 MEQ CAPSULE ER PO (08:38)
[2022-09-15] MEDS: MEDROXYPROGESTERONE 5 MG TABLET 20 MG PO ×2 (08:38→15:27)
[2022-09-15] MEDS: LORATADINE 10 MG TABLET PO (08:38)
[2022-09-15] MEDS: APIXABAN 5 MG TABLET PO ×2 (08:39→20:27)
[2022-09-15] MEDS: SPIRONOLACTONE 25 MG TABLET PO (08:39)
[2022-09-15] MEDS: SERTRALINE 50 MG TABLET PO (08:39)
[2022-09-15] MEDS: LACTOBACILLUS ACIDOPHILUS 1 TABLET 1 TAB PO ×3 (08:40→17:03)
--- NOTE | 2022-09-15 08:56 | PC.NURSE ---
Bowel note: GIORGIO reported resident had a BM yesterday on 09/14/22. Resident is therefore not on bowel protocol today.
[2022-09-15 10:35] VITALS: BMI 42.0
--- NOTE | 2022-09-15 10:38 | PC.NURSE ---
Resident refused to reweigh and informed business writer that her weight only decrease 5lbs compare to previous week and she is satisfied about it.
--- NOTE | 2022-09-15 14:40 | NUTR.NU ---
Addendum entered and electronically signed by Charu Calderon 09/15/22 15:13: Resident reports that she would like to continue with weight loss. RDN recommends 1-3 lbs weight loss per week for safe, gradual weight loss. This is equal to about ~0.5-1% loss of body weight per week. Original Note: Per monthly weight monitoring, resident triggers for significant weight loss. Per weight history, resident's weight was fairly stable around ~270lbs for approximately 3 months. Current weight of 245lbs on 09/15/22 shows significant weight loss of 24lbs (8.9%) with 30 day weight of 269lbs on 08/22/22 and significant weight loss of 33lbs (11.9%) with 90 day weight of 278lbs on 06/13/22. RDN met with resident in room on this day to discuss weight loss. Resident continues with regular diet, per MD order. Resident is happy with her intentional weight loss and states that she is not concerned at all at this time. No recent changes in diuretic noted, but do anticipate this may fluctuate weight. Resident does note being more active with therapy and nursing around the time that her weight started trending down. Resident reports that she has been mindful of food choices, portion sizes, and listening to her hunger cues. Resident continues with double protein portions at meals per MD order. Resident generally does not eat breakfast, but will consume both lunch and supper. Resident also has high protein snacks in the morning and notes having a Kind bar and piece of fruit in between meals. This once daily provides an additional ~100-200 kcals and ~5-15 grams of protein per day to help meet estimated kcal and protein requirements. Resident reports feeling full and satisfied following meals and notes getting enough to eat at meals and snacks. Resident states that she will ask for additional snacks/food if feeling hungry. No recent meal intakes recorded at this time and resident reports that she has not been consistently recording her meals recently. RDN encouraged her to continue with this. RDN will continue to monitor weight monthly and follow-up PRN. No interventions to be made at this time. RDN will continue to follow.
[2022-09-15] MEDS: MELATONIN 3 MG TABLET 6 MG PO (20:27)
[2022-09-16] MEDS: SERTRALINE 50 MG TABLET PO (08:26)
[2022-09-16] MEDS: POTASSIUM CHLORIDE 10 MEQ CAPSULE ER PO (08:26)
[2022-09-16] MEDS: CHOLESTYRAMINE POWDER 4 GM PO ×2 (08:26→17:40)
[2022-09-16] MEDS: MEDROXYPROGESTERONE 5 MG TABLET 20 MG PO ×2 (08:26→16:05)
[2022-09-16] MEDS: SPIRONOLACTONE 25 MG TABLET PO (08:26)
[2022-09-16] MEDS: METOPROLOL TARTRATE 100 MG TABLET 50 MG PO ×2 (08:26→16:05)
[2022-09-16] MEDS: FERROUS SULFATE 325 MG TABLET PO (08:26)
[2022-09-16] MEDS: LORATADINE 10 MG TABLET PO (08:26)
[2022-09-16] MEDS: APIXABAN 5 MG TABLET PO ×2 (08:26→20:35)
[2022-09-16] MEDS: LACTOBACILLUS ACIDOPHILUS 1 TABLET 1 TAB PO ×3 (08:26→17:40)
[2022-09-16] MEDS: LOPERAMIDE HCL 2 MG CAPSULE PO (08:26)
[2022-09-16] MEDS: DIGOXIN 250 MCG TABLET PO (08:26)
[2022-09-16] MEDS: FUROSEMIDE 40 MG TABLET 20 MG PO (08:26)
[2022-09-16] MEDS: MELATONIN 3 MG TABLET 6 MG PO (20:35)
[2022-09-17] MEDS: FUROSEMIDE 40 MG TABLET 20 MG PO (08:05)
[2022-09-17] MEDS: FERROUS SULFATE 325 MG TABLET PO (08:05)
[2022-09-17] MEDS: CHOLESTYRAMINE POWDER 4 GM PO ×2 (08:05→17:01)
[2022-09-17] MEDS: DIGOXIN 250 MCG TABLET PO (08:05)
[2022-09-17] MEDS: POTASSIUM CHLORIDE 10 MEQ CAPSULE ER PO (08:06)
[2022-09-17] MEDS: METOPROLOL TARTRATE 100 MG TABLET 50 MG PO ×2 (08:06→15:46)
[2022-09-17] MEDS: LOPERAMIDE HCL 2 MG CAPSULE PO (08:06)
[2022-09-17] MEDS: MEDROXYPROGESTERONE 5 MG TABLET 20 MG PO ×2 (08:06→15:46)
[2022-09-17] MEDS: SERTRALINE 50 MG TABLET PO (08:06)
[2022-09-17] MEDS: LACTOBACILLUS ACIDOPHILUS 1 TABLET 1 TAB PO ×3 (08:06→17:01)
[2022-09-17] MEDS: SPIRONOLACTONE 25 MG TABLET PO (08:06)
[2022-09-17] MEDS: LORATADINE 10 MG TABLET PO (08:06)
[2022-09-17] MEDS: APIXABAN 5 MG TABLET PO ×2 (08:06→20:21)
--- NOTE | 2022-09-17 11:17 | REH.PT ---
Checked in with Pt on how she is progressing with mobility and working towards eliminating use of the EZ stand. Currently using EZ stand 3x/day, First thing in the am, One time during the day to toilet and one time at night to toilet. Has been amb increasing distances with nursing staff with improved endurance. Pt set goal of decreasing use of EZ stand to 2x/day over the next week. Plan to continue to check in with pt every one-two weeks and ensure she continues to progress towards her goal of being ind with all functional mobility.
[2022-09-17] MEDS: MELATONIN 3 MG TABLET 6 MG PO (20:21)
--- NOTE | 2022-09-18 01:31 | PC.NURSE ---
Weekly Charting Week 3; Toileting and Skin. Vital signs reviewed with no concerns. Comprehensive and temporary care plan reviewed with no changes made. Toileting: Is incontinent of bladder, continent of bowel. Res put the call light when needed to use the toilet, usually dry at [facility]. Staff 1 assist with sepideh cares, incontinent pad, and clothing adjustment. Wears XX large briefs. Skin: Has dry bilateral feet, applied lotion. Edema on bilateral lower legs, wears leg wraps on AM/off bedtime. Skin check routinely on bath days and during cares.
--- NOTE | 2022-09-18 07:29 | PC.NURSE ---
WEEKLY CHARTING -WEEK 3- TOILETING & SKIN : Vital signs reviewed with no changes . Comprehensive and temporary care plan reviewed. No changes made, nothing added to temporary care plan. Resident is of 1 assist to toileting and able to to use the call light for her needs. She has occasionally urine dribbles and also blood discharge from vaginal. Continent of bowels. Staff toilet per her request. She may ambulate to commode with walker pr transfer from / with SBA using gait belt for safety. Her weight has a gradual reduction and she is planned for surgery on early September for hysterectomy Skin: No issues at this time. Has wraps to bilateral lower extremities ON- in the morning and removed at bedtime Skin is checked routinely during cares and on bath days.
[2022-09-18] MEDS: CHOLESTYRAMINE POWDER 4 GM PO ×2 (08:08→17:27)
[2022-09-18 08:09] VITALS: PULSE 72
[2022-09-18] MEDS: LOPERAMIDE HCL 2 MG CAPSULE PO (08:09)
[2022-09-18] MEDS: LORATADINE 10 MG TABLET PO (08:09)
[2022-09-18] MEDS: LACTOBACILLUS ACIDOPHILUS 1 TABLET 1 TAB PO ×3 (08:09→17:27)
[2022-09-18] MEDS: DIGOXIN 250 MCG TABLET PO (08:09)
[2022-09-18] MEDS: FERROUS SULFATE 325 MG TABLET PO (08:09)
[2022-09-18] MEDS: POTASSIUM CHLORIDE 10 MEQ CAPSULE ER PO (08:09)
[2022-09-18] MEDS: FUROSEMIDE 40 MG TABLET 20 MG PO (08:09)
[2022-09-18] MEDS: METOPROLOL TARTRATE 100 MG TABLET 50 MG PO ×2 (08:09→15:20)
[2022-09-18] MEDS: MEDROXYPROGESTERONE 5 MG TABLET 20 MG PO ×2 (08:10→15:21)
[2022-09-18] MEDS: SERTRALINE 50 MG TABLET PO (08:10)
[2022-09-18] MEDS: APIXABAN 5 MG TABLET PO ×2 (08:10→20:22)
[2022-09-18] MEDS: SPIRONOLACTONE 25 MG TABLET PO (08:10)
[2022-09-18] MEDS: MELATONIN 3 MG TABLET 6 MG PO (20:22)
[2022-09-19 08:22] VITALS: PULSE 70
[2022-09-19] MEDS: DIGOXIN 250 MCG TABLET PO (08:22)
[2022-09-19] MEDS: FERROUS SULFATE 325 MG TABLET PO (08:22)
[2022-09-19] MEDS: FUROSEMIDE 40 MG TABLET 20 MG PO (08:22)
[2022-09-19] MEDS: CHOLESTYRAMINE POWDER 4 GM PO ×2 (08:22→17:06)
[2022-09-19] MEDS: LOPERAMIDE HCL 2 MG CAPSULE PO (08:22)
[2022-09-19] MEDS: METOPROLOL TARTRATE 100 MG TABLET 50 MG PO ×2 (08:23→16:13)
[2022-09-19] MEDS: MEDROXYPROGESTERONE 5 MG TABLET 20 MG PO ×2 (08:23→16:13)
[2022-09-19] MEDS: SERTRALINE 50 MG TABLET PO (08:23)
[2022-09-19] MEDS: POTASSIUM CHLORIDE 10 MEQ CAPSULE ER PO (08:23)
[2022-09-19] MEDS: SPIRONOLACTONE 25 MG TABLET PO (08:23)
[2022-09-19] MEDS: LORATADINE 10 MG TABLET PO (08:23)
[2022-09-19] MEDS: LACTOBACILLUS ACIDOPHILUS 1 TABLET 1 TAB PO ×3 (08:23→17:06)
[2022-09-19] MEDS: APIXABAN 5 MG TABLET PO ×2 (08:30→20:39)
[2022-09-19 15:00] VITALS: BP 106/71; PULSE 68; RESP 18; TEMP 37.1; O2SAT 98; BMI 43.6
[2022-09-19] MEDS: MELATONIN 3 MG TABLET 6 MG PO (20:39)
[2022-09-20 08:09] VITALS: PULSE 68
[2022-09-20] MEDS: CHOLESTYRAMINE POWDER 4 GM PO ×2 (08:09→17:14)
[2022-09-20] MEDS: METOPROLOL TARTRATE 100 MG TABLET 50 MG PO ×2 (08:09→15:42)
[2022-09-20] MEDS: LOPERAMIDE HCL 2 MG CAPSULE PO (08:09)
[2022-09-20] MEDS: FERROUS SULFATE 325 MG TABLET PO (08:09)
[2022-09-20] MEDS: LORATADINE 10 MG TABLET PO (08:09)
[2022-09-20] MEDS: DIGOXIN 250 MCG TABLET PO (08:09)
[2022-09-20] MEDS: FUROSEMIDE 40 MG TABLET 20 MG PO (08:09)
[2022-09-20] MEDS: POTASSIUM CHLORIDE 10 MEQ CAPSULE ER PO (08:09)
[2022-09-20] MEDS: SPIRONOLACTONE 25 MG TABLET PO (08:10)
[2022-09-20] MEDS: SERTRALINE 50 MG TABLET PO (08:10)
[2022-09-20] MEDS: LACTOBACILLUS ACIDOPHILUS 1 TABLET 1 TAB PO ×3 (08:10→17:14)
[2022-09-20] MEDS: MEDROXYPROGESTERONE 5 MG TABLET 20 MG PO ×2 (08:10→15:42)
[2022-09-20] MEDS: APIXABAN 5 MG TABLET PO ×2 (08:19→20:08)
[2022-09-20] MEDS: MELATONIN 3 MG TABLET 6 MG PO (20:08)
[2022-09-21 08:02] VITALS: PULSE 74
[2022-09-21] MEDS: FERROUS SULFATE 325 MG TABLET PO (08:02)
[2022-09-21] MEDS: DIGOXIN 250 MCG TABLET PO (08:02)
[2022-09-21] MEDS: CHOLESTYRAMINE POWDER 4 GM PO ×2 (08:02→17:02)
[2022-09-21] MEDS: FUROSEMIDE 40 MG TABLET 20 MG PO (08:02)
[2022-09-21] MEDS: MEDROXYPROGESTERONE 5 MG TABLET 20 MG PO ×2 (08:03→16:22)
[2022-09-21] MEDS: LORATADINE 10 MG TABLET PO (08:03)
[2022-09-21] MEDS: LACTOBACILLUS ACIDOPHILUS 1 TABLET 1 TAB PO ×3 (08:03→16:54)
[2022-09-21] MEDS: APIXABAN 5 MG TABLET PO ×2 (08:03→20:38)
[2022-09-21] MEDS: LOPERAMIDE HCL 2 MG CAPSULE PO (08:03)
[2022-09-21] MEDS: SERTRALINE 50 MG TABLET PO (08:03)
[2022-09-21] MEDS: SPIRONOLACTONE 25 MG TABLET PO (08:03)
[2022-09-21] MEDS: POTASSIUM CHLORIDE 10 MEQ CAPSULE ER PO (08:03)
[2022-09-21] MEDS: METOPROLOL TARTRATE 100 MG TABLET 50 MG PO ×2 (08:03→16:22)
[2022-09-21 09:40] LABS: Basophils Absolute Auto 0.01 K/uL (0.00-0.30); Basophils Percent Auto 0.2 % (0.0-3.0); Eosinophils Absolute Auto 0.19 K/uL (0.00-0.50); Eosinophils Percent Auto 4.2 % (0.0-7.0); Hematocrit 39.4 % (33.0-51.0); Hemoglobin* 11.8 gm/dL (12.0-16.0); Immature Granulocytes Abs Auto 0.01 K/uL (0.00-0.30); Immature Granulocytes Pct Auto 0.2 %; Lymphocytes Absolute Auto 1.19 K/uL (0.90-2.90); Lymphocytes Percent Auto 26.1 % (20-44); Mean Corpuscular HGB Conc 30 gm/dL (32-36); Mean Corpuscular Hemoglobin 27 pg (26-34); Mean Corpuscular Volume 89 fL (80-100); Neutrophils Absolute Auto 2.75 K/uL (1.7-7.0); Neutrophils Percent Auto 60.3 % (42.0-72.0); Platelet Count* 223 K/uL (140-440); RDW Coefficient of Variation % 14.1 % (11.5-15.5); Red Blood Count 4.44 m/uL (4.00-5.20); White Blood Count* 4.56 K/uL (4.50-11.00)
[2022-09-21 09:43] LABS: Chloride* 107 mmol/L (96-114)
[2022-09-21 09:44] LABS: Potassium* 4.6 mmol/L (3.6-5.1); Sodium* 139 mmol/L (135-149)
[2022-09-21 09:45] LABS: Slide Review Reflex No
[2022-09-21 09:46] LABS: Est. Creatinine Clearance* 43.91; Estimated Glomerular Filt Rate 60 ml/min
[2022-09-21 09:47] LABS: Blood Urea Nitrogen* 17 mg/dL (7-30); Calcium* 9.3 mg/dL (8.4-10.6); Carbon Dioxide* 26 mmol/L (20-32); Glucose* 111 mg/dL (60-115)
[2022-09-21 10:00] LABS: INR 1.17 (0.91-1.10); Prothrombin Time 15.6 Seconds
--- NOTE | 2022-09-21 12:55 | PC.NURSE ---
Lab note: Resident's pre-surgery BMP, CBC and PT INR labs completed this morning. All values within normal limits except for Hgb low at 11.8, MCHC low at 30 and INR slightly elevated at 1.17. Note left in TALENT ACQUISITION PROGRAM MANAGER binder to address labs.
--- NOTE | 2022-09-21 13:51 | PC.NURSE ---
Diagnostic note: Resident has EKG (electrocardiogram) ordered by SASHA Rendon to be completed today in preparation for upcoming surgery. ED staff is completing EKG with resident in resident's room.
[2022-09-21] MEDS: MELATONIN 3 MG TABLET 6 MG PO (19:45)
[2022-09-22] MEDS: FERROUS SULFATE 325 MG TABLET PO (08:53)
[2022-09-22] MEDS: POTASSIUM CHLORIDE 10 MEQ CAPSULE ER PO (08:54)
[2022-09-22] MEDS: LORATADINE 10 MG TABLET PO (08:54)
[2022-09-22] MEDS: METOPROLOL TARTRATE 100 MG TABLET 50 MG PO ×2 (08:54→15:36)
[2022-09-22] MEDS: LOPERAMIDE HCL 2 MG CAPSULE PO (08:54)
[2022-09-22] MEDS: FUROSEMIDE 40 MG TABLET 20 MG PO (08:54)
[2022-09-22] MEDS: LACTOBACILLUS ACIDOPHILUS 1 TABLET 1 TAB PO ×3 (08:55→17:01)
[2022-09-22] MEDS: MEDROXYPROGESTERONE 5 MG TABLET 20 MG PO ×2 (08:55→15:36)
[2022-09-22] MEDS: SERTRALINE 50 MG TABLET PO (08:55)
[2022-09-22] MEDS: SPIRONOLACTONE 25 MG TABLET PO (08:55)
[2022-09-22 08:57] VITALS: PULSE 68
[2022-09-22] MEDS: APIXABAN 5 MG TABLET PO ×2 (08:57→20:22)
[2022-09-22] MEDS: DIGOXIN 250 MCG TABLET PO (08:57)
[2022-09-22] MEDS: CHOLESTYRAMINE POWDER 4 GM PO ×2 (09:02→17:01)
--- NOTE | 2022-09-22 13:18 | PC.NURSE ---
Cert visit note: Resident seen by SASHA Rendon for recert visit. Orders reviewed and renewed with no changes made.
[2022-09-22] MEDS: MELATONIN 3 MG TABLET 6 MG PO (20:22)
[2022-09-23] MEDS: FUROSEMIDE 40 MG TABLET 20 MG PO (08:36)
[2022-09-23] MEDS: FERROUS SULFATE 325 MG TABLET PO (08:36)
[2022-09-23] MEDS: METOPROLOL TARTRATE 100 MG TABLET 50 MG PO ×2 (08:37→15:19)
[2022-09-23] MEDS: POTASSIUM CHLORIDE 10 MEQ CAPSULE ER PO (08:37)
[2022-09-23] MEDS: LOPERAMIDE HCL 2 MG CAPSULE PO (08:37)
[2022-09-23] MEDS: LORATADINE 10 MG TABLET PO (08:37)
[2022-09-23] MEDS: MEDROXYPROGESTERONE 5 MG TABLET 20 MG PO ×2 (08:38→15:19)
[2022-09-23] MEDS: SERTRALINE 50 MG TABLET PO (08:38)
[2022-09-23] MEDS: LACTOBACILLUS ACIDOPHILUS 1 TABLET 1 TAB PO ×3 (08:38→17:21)
[2022-09-23] MEDS: SPIRONOLACTONE 25 MG TABLET PO (08:38)
[2022-09-23] MEDS: CHOLESTYRAMINE POWDER 4 GM PO ×2 (08:39→17:21)
[2022-09-23 08:57] VITALS: PULSE 72
[2022-09-23] MEDS: DIGOXIN 250 MCG TABLET PO (08:57)
--- NOTE | 2022-09-23 11:14 | PC.NURSE ---
Medication note: COLLAR TRIMMER awaiting clarification from PATIENT RELATIONS COORDINATOR as to when resident's hold of Apixaban should begin.
[2022-09-23] MEDS: APIXABAN 5 MG TABLET PO (12:59)
[2022-09-23] MEDS: MELATONIN 3 MG TABLET 6 MG PO (20:56)
--- NOTE | 2022-09-23 22:29 | PC.NURSE ---
Verbal Order: Discontinue Apixaban 5mg Q12 HR and Medroxyprogesterone 20mg PO BID d/t surgical pre-op instructions per Yari Rendon CNP.
[2022-09-24] MEDS: CHOLESTYRAMINE POWDER 4 GM PO ×2 (08:24→17:06)
[2022-09-24] MEDS: FERROUS SULFATE 325 MG TABLET PO (08:24)
[2022-09-24 08:25] VITALS: PULSE 68
[2022-09-24] MEDS: FUROSEMIDE 40 MG TABLET 20 MG PO (08:25)
[2022-09-24] MEDS: LORATADINE 10 MG TABLET PO (08:25)
[2022-09-24] MEDS: POTASSIUM CHLORIDE 10 MEQ CAPSULE ER PO (08:25)
[2022-09-24] MEDS: METOPROLOL TARTRATE 100 MG TABLET 50 MG PO ×2 (08:25→16:14)
[2022-09-24] MEDS: SPIRONOLACTONE 25 MG TABLET PO (08:25)
[2022-09-24] MEDS: SERTRALINE 50 MG TABLET PO (08:25)
[2022-09-24] MEDS: LACTOBACILLUS ACIDOPHILUS 1 TABLET 1 TAB PO ×3 (08:25→17:06)
[2022-09-24] MEDS: LOPERAMIDE HCL 2 MG CAPSULE PO (08:25)
[2022-09-24] MEDS: DIGOXIN 250 MCG TABLET PO (08:25)
--- NOTE | 2022-09-24 11:17 | PC.NURSE ---
Received completed H&P from SASHA/Yari to send to [facility] for resident's pre-surgery. Faxed signed H&P, copy or EKG (from 09/21), recent lab work (from 09/21), Facesheet and list of current medications to [facility] ( ). Received confirmation that fax was successful. All forms placed in resident file and copy placed in menan folder to go with her to surgery on October 01, 2022.
[2022-09-24] MEDS: MELATONIN 3 MG TABLET 6 MG PO (19:37)
--- NOTE | 2022-09-24 23:44 | PC.NURSE ---
Weekly Charting Week 4: Vital signs reviewed with no concerns. Comprehensive and temporary care plan reviewed with no changes made. No behavioral concerns documented in this month. Receives sertraline 25 mg daily and melatonin 6mg at HS with no adverse drug effects noted. Communicates needs verbally. Able to use call light appropriately. No hearing or visual impairment. Cognitively intact. Medications administered by licensed nurse. Health status stable at this time.
--- NOTE | 2022-09-25 07:47 | PC.NURSE ---
WEEKLY CHARTING -Week 4: Communication,Hearing/Vision,Cognition/Behavior, & Clinical Monitoring Vital signs reviewed with no concerns currently. Comprehensive and temporary care plan reviewed with no changes made. Resident on on Sertraline 25 mg daily and melatonin 6mg at HS with no adverse drug effects noted. Resident was overweight on admission and since than has made a lot of effort to lost more than 30lbs. She is very motivated in her treatment and cares improvement with positive attitude. No behavioral concerns. She is alert and oriented and able to communicates needs verbally. She is able to use call light appropriately. No hearing or visual impairment. Cognitively intact. Medications administered by licensed nurse. Resident is going for Hysterectomy surgery on the 10/01/2022 and all preparation for pre-op has been made. No changes in chronic kayleigh condition for time being.
[2022-09-25] MEDS: DIGOXIN 250 MCG TABLET PO (08:02)
[2022-09-25] MEDS: FUROSEMIDE 40 MG TABLET 20 MG PO (08:02)
[2022-09-25] MEDS: CHOLESTYRAMINE POWDER 4 GM PO ×2 (08:02→17:15)
[2022-09-25] MEDS: FERROUS SULFATE 325 MG TABLET PO (08:02)
[2022-09-25] MEDS: SERTRALINE 50 MG TABLET PO (08:03)
[2022-09-25] MEDS: METOPROLOL TARTRATE 100 MG TABLET 50 MG PO ×2 (08:03→15:40)
[2022-09-25] MEDS: LACTOBACILLUS ACIDOPHILUS 1 TABLET 1 TAB PO ×3 (08:03→17:15)
[2022-09-25] MEDS: SPIRONOLACTONE 25 MG TABLET PO (08:03)
[2022-09-25] MEDS: LOPERAMIDE HCL 2 MG CAPSULE PO (08:03)
[2022-09-25] MEDS: LORATADINE 10 MG TABLET PO (08:03)
[2022-09-25] MEDS: POTASSIUM CHLORIDE 10 MEQ CAPSULE ER PO (08:03)
[2022-09-25] MEDS: MELATONIN 3 MG TABLET 6 MG PO (19:35)
[2022-09-26] MEDS: CHOLESTYRAMINE POWDER 4 GM PO ×2 (08:32→17:25)
[2022-09-26] MEDS: FERROUS SULFATE 325 MG TABLET PO (08:32)
[2022-09-26] MEDS: METOPROLOL TARTRATE 100 MG TABLET 50 MG PO ×2 (08:33→15:20)
[2022-09-26] MEDS: POTASSIUM CHLORIDE 10 MEQ CAPSULE ER PO (08:33)
[2022-09-26] MEDS: LACTOBACILLUS ACIDOPHILUS 1 TABLET 1 TAB PO ×3 (08:33→17:25)
[2022-09-26] MEDS: LORATADINE 10 MG TABLET PO (08:33)
[2022-09-26] MEDS: LOPERAMIDE HCL 2 MG CAPSULE PO (08:33)
[2022-09-26] MEDS: FUROSEMIDE 40 MG TABLET 20 MG PO (08:33)
[2022-09-26] MEDS: SPIRONOLACTONE 25 MG TABLET PO (08:34)
[2022-09-26] MEDS: SERTRALINE 50 MG TABLET PO (08:34)
[2022-09-26 08:37] VITALS: PULSE 80
[2022-09-26] MEDS: DIGOXIN 250 MCG TABLET PO (08:37)
[2022-09-26] MEDS: ACETAMINOPHEN 325 MG TABLET 975 MG PO (08:40)
[2022-09-26 15:00] VITALS: BP 118/77; PULSE 66; RESP 16; TEMP 36.4; O2SAT 97; BMI 43.4
[2022-09-26] MEDS: MELATONIN 3 MG TABLET 6 MG PO (19:32)
[2022-09-27] MEDS: METOPROLOL TARTRATE 100 MG TABLET 50 MG PO ×2 (08:11→15:44)
[2022-09-27] MEDS: FERROUS SULFATE 325 MG TABLET PO (08:11)
[2022-09-27] MEDS: CHOLESTYRAMINE POWDER 4 GM PO ×2 (08:11→17:07)
[2022-09-27] MEDS: LOPERAMIDE HCL 2 MG CAPSULE PO (08:11)
[2022-09-27] MEDS: SERTRALINE 50 MG TABLET PO (08:11)
[2022-09-27] MEDS: FUROSEMIDE 40 MG TABLET 20 MG PO (08:11)
[2022-09-27] MEDS: SPIRONOLACTONE 25 MG TABLET PO (08:11)
[2022-09-27] MEDS: POTASSIUM CHLORIDE 10 MEQ CAPSULE ER PO (08:11)
[2022-09-27] MEDS: LORATADINE 10 MG TABLET PO (08:11)
[2022-09-27] MEDS: LACTOBACILLUS ACIDOPHILUS 1 TABLET 1 TAB PO ×3 (08:11→17:07)
[2022-09-27] MEDS: DIGOXIN 250 MCG TABLET PO (08:11)
[2022-09-27] MEDS: MELATONIN 3 MG TABLET 6 MG PO (19:29)
[2022-09-27] MEDS: ACETAMINOPHEN 325 MG TABLET 975 MG PO (21:40)
[2022-09-28 08:13] VITALS: PULSE 70
[2022-09-28] MEDS: METOPROLOL TARTRATE 100 MG TABLET 50 MG PO ×2 (08:13→15:50)
[2022-09-28] MEDS: POTASSIUM CHLORIDE 10 MEQ CAPSULE ER PO (08:13)
[2022-09-28] MEDS: LORATADINE 10 MG TABLET PO (08:13)
[2022-09-28] MEDS: DIGOXIN 250 MCG TABLET PO (08:13)
[2022-09-28] MEDS: LACTOBACILLUS ACIDOPHILUS 1 TABLET 1 TAB PO ×3 (08:13→16:32)
[2022-09-28] MEDS: FERROUS SULFATE 325 MG TABLET PO (08:13)
[2022-09-28] MEDS: CHOLESTYRAMINE POWDER 4 GM PO ×2 (08:13→17:17)
[2022-09-28] MEDS: LOPERAMIDE HCL 2 MG CAPSULE PO (08:13)
[2022-09-28] MEDS: FUROSEMIDE 40 MG TABLET 20 MG PO (08:13)
[2022-09-28] MEDS: SPIRONOLACTONE 25 MG TABLET PO (08:14)
[2022-09-28] MEDS: SERTRALINE 50 MG TABLET PO (08:14)
[2022-09-28] MEDS: ACETAMINOPHEN 325 MG TABLET 975 MG PO (11:13)
[2022-09-28] MEDS: MELATONIN 3 MG TABLET 6 MG PO (19:33)
[2022-09-29] MEDS: CHOLESTYRAMINE POWDER 4 GM PO ×2 (08:19→17:18)
[2022-09-29] MEDS: LOPERAMIDE HCL 2 MG CAPSULE PO (08:23)
[2022-09-29] MEDS: FUROSEMIDE 40 MG TABLET 20 MG PO (08:23)
[2022-09-29] MEDS: SPIRONOLACTONE 25 MG TABLET PO (08:24)
[2022-09-29] MEDS: LORATADINE 10 MG TABLET PO (08:24)
[2022-09-29] MEDS: METOPROLOL TARTRATE 100 MG TABLET 50 MG PO ×2 (08:24→15:32)
[2022-09-29] MEDS: POTASSIUM CHLORIDE 10 MEQ CAPSULE ER PO (08:24)
[2022-09-29] MEDS: SERTRALINE 50 MG TABLET PO (08:24)
[2022-09-29] MEDS: FERROUS SULFATE 325 MG TABLET PO (08:25)
[2022-09-29] MEDS: LACTOBACILLUS ACIDOPHILUS 1 TABLET 1 TAB PO ×3 (08:25→17:18)
[2022-09-29 08:31] VITALS: PULSE 72
[2022-09-29] MEDS: DIGOXIN 250 MCG TABLET PO (08:31)
[2022-09-29] MEDS: MELATONIN 3 MG TABLET 6 MG PO (19:33)
[2022-09-30] MEDS: LACTOBACILLUS ACIDOPHILUS 1 TABLET 1 TAB PO ×3 (08:07→16:51)
[2022-09-30] MEDS: SPIRONOLACTONE 25 MG TABLET PO (08:07)
[2022-09-30] MEDS: FERROUS SULFATE 325 MG TABLET PO (08:07)
[2022-09-30] MEDS: METOPROLOL TARTRATE 100 MG TABLET 50 MG PO ×2 (08:07→16:48)
[2022-09-30] MEDS: LOPERAMIDE HCL 2 MG CAPSULE PO (08:07)
[2022-09-30] MEDS: CHOLESTYRAMINE POWDER 4 GM PO ×2 (08:07→17:08)
[2022-09-30] MEDS: SERTRALINE 50 MG TABLET PO (08:07)
[2022-09-30] MEDS: POTASSIUM CHLORIDE 10 MEQ CAPSULE ER PO (08:07)
[2022-09-30] MEDS: FUROSEMIDE 40 MG TABLET 20 MG PO (08:07)
[2022-09-30] MEDS: LORATADINE 10 MG TABLET PO (08:07)
[2022-09-30 08:57] VITALS: PULSE 66
[2022-09-30] MEDS: DIGOXIN 250 MCG TABLET PO (08:57)
--- NOTE | 2022-09-30 10:47 | PC.NURSE ---
Surgery prep note: [facility] called to inform facility nurse that tomorrow resident needs to bring photo ID, insurance card, CPAP and current med list with last administration times provided. No jewelry, credit cards or money should be brought with resident tomorrow. She is to shower this evening and tomorrow morning using antibacterial soap in preparation for surgery tomorrow on 10/01/22. Will update evening staff upon shift change report.
--- NOTE | 2022-09-30 16:12 | PC.SPIRITC ---
Emily expressed having a tough day on Wednesday, but feeling better now. Scared at times, but better. I provided visit for support and to help normalize and process feelings around upcoming surgery.
[2022-09-30] MEDS: MELATONIN 3 MG TABLET 6 MG PO (20:54)
--- NOTE | 2022-10-01 07:56 | PC.NURSE ---
AM Medication . Museum Educator call to [facility] regarding to give resident AM medication and received order from RN July to withhold all AM medication and keep patient fasting.
--- NOTE | 2022-10-01 12:43 | PC.NURSE ---
ALPA : Resident left to [facility] for surgery at 0945 by EMS transportation. All documents, including her CPAP equipment was send with her.
--- NOTE | 2022-10-05 15:00 | PC.NURSE ---
Return To Facility: Resident returned from [facility] to [facility] at approximately 1500. Med list reviewed by DYLAN and one of the floor nurses. Post surgical interventions including obtaining Vital signs for [address] at this time.
--- NOTE | 2022-10-05 15:52 | PC.NURSE ---
Received phone call from Oneyda LOPEZ ([phone]) from [facility] requesting resident return to facility today. She notes resident is medically ready to DC from hospital and ride has been arranged for pickup at hospital around 1:30-2:20pm via [employer] van. DC orders received with updated med list. Faxed [place] and [facility] with new med list. Resident had supply of medications that were remaining from previous stay. Meds reviewed and confirmed for accurate medication/dose/route/time. PT/OT orders and new med orders placed in computer - investment underwriter unable to put orders in under [place] provider, Maxine Lorenzo MD. Resident arrived and made comfortable in room with call light in reach.
[2022-10-05] MEDS: LACTOBACILLUS ACIDOPHILUS 1 TABLET 1 TAB PO (16:50)
[2022-10-05] MEDS: METOPROLOL TARTRATE 100 MG TABLET 50 MG PO (16:50)
[2022-10-05] MEDS: CHOLESTYRAMINE POWDER 4 GM PO (17:20)
[2022-10-05] MEDS: MELATONIN 3 MG TABLET 6 MG PO (19:31)
[2022-10-05] MEDS: APIXABAN 5 MG TABLET PO (19:31)
--- NOTE | 2022-10-05 21:09 | LTC.MGU ---
LTC Medicare Note: o Admission dx: post-hysterectomy o Daily VS: o Vaginal discharge: o S/S infection: o PT/OT/Nursing: PT/OT 5x/week until resident meets goals o Pain and pain interventions: o Goals for discharge: return to community
[2022-10-05 21:42] VITALS: TEMP 36.7
[2022-10-05] MEDS: ACETAMINOPHEN 325 MG TABLET 975 MG PO (21:42)
[2022-10-05 22:15] VITALS: TEMP 36.7
[2022-10-05 22:18] VITALS: BP 114/68; PULSE 68; RESP 16; TEMP 36.7; O2SAT 97
[2022-10-06 02:18] VITALS: BP 133/68; PULSE 71; RESP 18; TEMP 36.9; O2SAT 98
--- NOTE | 2022-10-06 05:31 | PC.NURSE ---
Readmission note. Resident night went fine, she did not complain about any discomfort, received Tylenol 1000mg last evening. Vitals were checked at 0200 am , 98.4 18 71 133/68 98% RA. No concerns at this time .
[2022-10-06] MEDS: CHOLESTYRAMINE POWDER 4 GM PO ×2 (08:26→17:17)
[2022-10-06] MEDS: FUROSEMIDE 40 MG TABLET 20 MG PO (08:32)
[2022-10-06] MEDS: APIXABAN 5 MG TABLET PO ×2 (08:32→19:59)
[2022-10-06] MEDS: FERROUS SULFATE 325 MG TABLET PO (08:32)
[2022-10-06] MEDS: LACTOBACILLUS ACIDOPHILUS 1 TABLET 1 TAB PO ×3 (08:34→17:17)
[2022-10-06] MEDS: SPIRONOLACTONE 25 MG TABLET PO (08:34)
[2022-10-06] MEDS: METOPROLOL TARTRATE 100 MG TABLET 50 MG PO ×2 (08:34→15:53)
[2022-10-06] MEDS: POTASSIUM CHLORIDE 10 MEQ CAPSULE ER PO (08:34)
[2022-10-06] MEDS: SERTRALINE 50 MG TABLET PO (08:34)
[2022-10-06] MEDS: LORATADINE 10 MG TABLET PO (08:52)
[2022-10-06 09:02] VITALS: PULSE 69
[2022-10-06] MEDS: DIGOXIN 250 MCG TABLET PO (09:02)
[2022-10-06] MEDS: OXYCODONE 5 MG TABLET PO ×3 (09:33→19:59)
--- NOTE | 2022-10-06 09:49 | REH.PT ---
Pt declined PT/OT Evals today. She would like a couple more days to recover post sx. Plan to check back in with pt 10/08.
[2022-10-06 10:46] VITALS: BP 122/66; PULSE 72; RESP 18; TEMP 36.8; O2SAT 99
[2022-10-06 13:59] VITALS: BP 114/60; PULSE 72; RESP 20; TEMP 36.9; O2SAT 98
--- NOTE | 2022-10-06 14:00 | PC.NURSE ---
Med Clarification: TRANSIT MIX OPERATOR, Julieta here. Provera not reordered, no longer needed. Medication was to decrease vaginal bledding.
--- NOTE | 2022-10-06 14:05 | PC.NURSE ---
Post op vitals : Resident was given PRN Oxycodone at 0930 and 1400 hours which was effective. Vital are as follows: T 98.5, P 72, B/P 114/60, R 18 and O2 98% (RA) Appetite fair, unable to do PT due to pain and resident was still weak. Resident was also unable to ambulate due to pain.
[2022-10-06 17:26] VITALS: BP 125/83; PULSE 72; RESP 16; TEMP 36.8; O2SAT 97
[2022-10-06] MEDS: MELATONIN 3 MG TABLET 6 MG PO (19:59)
--- NOTE | 2022-10-06 21:38 | PC.NURSE ---
Post op status: Vitals remains stable and Resident up in her recliner most of the shift, alert and oriented per base line did complain of increase pain to the lower abdomen rated 6/10 PRN Oxycodone 5 mg given and cold pack applied and was effective
[2022-10-07] MEDS: OXYCODONE 5 MG TABLET PO ×2 (04:17→21:03)
[2022-10-07 08:28] VITALS: PULSE 68
[2022-10-07] MEDS: DIGOXIN 250 MCG TABLET PO (08:28)
[2022-10-07] MEDS: FUROSEMIDE 40 MG TABLET 20 MG PO (08:28)
[2022-10-07] MEDS: APIXABAN 5 MG TABLET PO ×2 (08:28→21:03)
[2022-10-07] MEDS: POTASSIUM CHLORIDE 10 MEQ CAPSULE ER PO (08:28)
[2022-10-07] MEDS: FERROUS SULFATE 325 MG TABLET PO (08:28)
[2022-10-07] MEDS: SPIRONOLACTONE 25 MG TABLET PO (08:28)
[2022-10-07] MEDS: LACTOBACILLUS ACIDOPHILUS 1 TABLET 1 TAB PO ×3 (08:28→17:03)
[2022-10-07] MEDS: LORATADINE 10 MG TABLET PO (08:28)
[2022-10-07] MEDS: CHOLESTYRAMINE POWDER 4 GM PO ×2 (08:28→17:03)
[2022-10-07] MEDS: METOPROLOL TARTRATE 100 MG TABLET 50 MG PO ×2 (08:28→16:27)
[2022-10-07] MEDS: SERTRALINE 50 MG TABLET PO (08:28)
[2022-10-07] MEDS: ACETAMINOPHEN 325 MG TABLET 975 MG PO ×2 (09:00→17:03)
[2022-10-07] MEDS: MELATONIN 3 MG TABLET 6 MG PO (21:03)
[2022-10-08] MEDS: ACETAMINOPHEN 325 MG TABLET 975 MG PO ×2 (06:30→14:41)
[2022-10-08] MEDS: APIXABAN 5 MG TABLET PO ×2 (08:08→21:16)
[2022-10-08] MEDS: FERROUS SULFATE 325 MG TABLET PO (08:08)
[2022-10-08] MEDS: CHOLESTYRAMINE POWDER 4 GM PO ×2 (08:08→17:19)
[2022-10-08 08:09] VITALS: PULSE 70
[2022-10-08] MEDS: METOPROLOL TARTRATE 100 MG TABLET 50 MG PO ×2 (08:09→17:18)
[2022-10-08] MEDS: FUROSEMIDE 40 MG TABLET 20 MG PO (08:09)
[2022-10-08] MEDS: DIGOXIN 250 MCG TABLET PO (08:09)
[2022-10-08] MEDS: SPIRONOLACTONE 25 MG TABLET PO (08:10)
[2022-10-08] MEDS: LACTOBACILLUS ACIDOPHILUS 1 TABLET 1 TAB PO ×3 (08:10→17:19)
[2022-10-08] MEDS: POTASSIUM CHLORIDE 10 MEQ CAPSULE ER PO (08:10)
[2022-10-08] MEDS: LORATADINE 10 MG TABLET PO (08:10)
[2022-10-08] MEDS: SERTRALINE 50 MG TABLET PO (08:10)
--- NOTE | 2022-10-08 11:52 | REH.OT ---
Patient would like to wait until Wednesday10/12/22 to begin OT/PT evaluations.
[2022-10-08] MEDS: MELATONIN 3 MG TABLET 6 MG PO (21:16)
[2022-10-08] MEDS: OXYCODONE 5 MG TABLET PO (21:46)
--- NOTE | 2022-10-09 01:51 | PC.NURSE ---
Weekly Charting Week 1 PAIN and ADLs: Vitals signs reviewed with no concerns. Comprehensive and temporary care plan reviewed. Temporary care plan added Has a hysterectomy incision, goal to healed with no s/s of infection. Back to baseline. Approaches PT/OT, check for s/s on infection as swelling, any unusual drainage. Okay to leave incision cover or uncover with clean dry gauze and change daily, will removed stable on follow up appointment. Pain: Has hysterectomy incision pain which controlled of Tylenol 975mg Q8H PRN and Oxycodone 5mg Q4H PRN which is seems effective. Resident able to verbalize when in pain. ADLs: Resident needs extensive one to two staff assist for bathing, grooming, dressing. Able to perform oral cares after set up. Resident is on diabetic diet double protein, regular texture and thin liquids. Able to eat independent after set up. No swallowing/ chewing concerns reported.
[2022-10-09] MEDS: ACETAMINOPHEN 325 MG TABLET 975 MG PO ×2 (07:15→14:08)
--- NOTE | 2022-10-09 07:36 | PC.NURSE ---
Weekly Charting, Week 1 - ADL's: Comprehensive and temporary care plan reviewed. No changes made, & nothing added to temporary care plan. Resident needs one assist with dressing lower half, is able to do upper half dressing. Staff to apply compression wraps to BLE on - AM, remove at HS. Grooming, oral cares, and feeding done independently after set up. Needs 2 assists with bed bath. Is on regular diet, regular texture, thin liquids, double protein portions. No problem with chewing/swallowing reported. Vital signs reviewed, some low BP's. Continue weekly monitoring and refer to providers as needed. Pain: Has history of knee pain. And underwent hysterectomy on 10/01. Oxycodone 5mg Q4H PRN ordered on 10/05 and has used 1-2x not on a daily basis. Has also have order for Tylenol 975mg Q8H PRN, which she used alternately with Oxycodone. Ice packing to incision site also helps. Resident is able to make needs known.
[2022-10-09] MEDS: APIXABAN 5 MG TABLET PO ×2 (08:01→19:46)
[2022-10-09] MEDS: CHOLESTYRAMINE POWDER 4 GM PO ×2 (08:01→17:06)
[2022-10-09] MEDS: DIGOXIN 250 MCG TABLET PO (08:01)
[2022-10-09] MEDS: FERROUS SULFATE 325 MG TABLET PO (08:01)
[2022-10-09] MEDS: METOPROLOL TARTRATE 100 MG TABLET 50 MG PO ×2 (08:02→15:38)
[2022-10-09] MEDS: SPIRONOLACTONE 25 MG TABLET PO (08:02)
[2022-10-09] MEDS: LORATADINE 10 MG TABLET PO (08:02)
[2022-10-09] MEDS: POTASSIUM CHLORIDE 10 MEQ CAPSULE ER PO (08:02)
[2022-10-09] MEDS: FUROSEMIDE 40 MG TABLET 20 MG PO (08:02)
[2022-10-09] MEDS: SERTRALINE 50 MG TABLET PO (08:02)
[2022-10-09] MEDS: LACTOBACILLUS ACIDOPHILUS 1 TABLET 1 TAB PO ×3 (08:02→17:06)
[2022-10-09] MEDS: MELATONIN 3 MG TABLET 6 MG PO (19:47)
[2022-10-09] MEDS: OXYCODONE 5 MG TABLET PO (21:10)
[2022-10-10] MEDS: ACETAMINOPHEN 325 MG TABLET 975 MG PO ×2 (02:22→11:15)
[2022-10-10] MEDS: METOPROLOL TARTRATE 100 MG TABLET 50 MG PO ×2 (07:59→15:41)
[2022-10-10] MEDS: APIXABAN 5 MG TABLET PO ×2 (07:59→20:01)
[2022-10-10] MEDS: LACTOBACILLUS ACIDOPHILUS 1 TABLET 1 TAB PO ×3 (07:59→17:02)
[2022-10-10] MEDS: SERTRALINE 50 MG TABLET PO (07:59)
[2022-10-10] MEDS: CHOLESTYRAMINE POWDER 4 GM PO ×2 (07:59→17:02)
[2022-10-10] MEDS: DIGOXIN 250 MCG TABLET PO (07:59)
[2022-10-10] MEDS: FUROSEMIDE 40 MG TABLET 20 MG PO (07:59)
[2022-10-10] MEDS: SPIRONOLACTONE 25 MG TABLET PO (07:59)
[2022-10-10] MEDS: FERROUS SULFATE 325 MG TABLET PO (07:59)
[2022-10-10] MEDS: POTASSIUM CHLORIDE 10 MEQ CAPSULE ER PO (07:59)
[2022-10-10] MEDS: LORATADINE 10 MG TABLET PO (07:59)
[2022-10-10] MEDS: LOPERAMIDE HCL 2 MG CAPSULE PO (13:09)
[2022-10-10 15:00] VITALS: BP 127/78; PULSE 72; TEMP 36.3; O2SAT 99
[2022-10-10] MEDS: MELATONIN 3 MG TABLET 6 MG PO (20:01)
[2022-10-10] MEDS: OXYCODONE 5 MG TABLET PO (21:15)
[2022-10-11] MEDS: ACETAMINOPHEN 325 MG TABLET 975 MG PO ×2 (04:00→13:45)
--- NOTE | 2022-10-11 05:39 | PC.NURSE ---
Pain management Resident had Tylenol 975 mg for abdominal pain and an ice pack.
[2022-10-11 08:00] VITALS: PULSE 72
[2022-10-11] MEDS: CHOLESTYRAMINE POWDER 4 GM PO ×2 (08:00→17:02)
[2022-10-11] MEDS: METOPROLOL TARTRATE 100 MG TABLET 50 MG PO ×2 (08:00→15:49)
[2022-10-11] MEDS: FERROUS SULFATE 325 MG TABLET PO (08:00)
[2022-10-11] MEDS: DIGOXIN 250 MCG TABLET PO (08:00)
[2022-10-11] MEDS: LORATADINE 10 MG TABLET PO (08:00)
[2022-10-11] MEDS: APIXABAN 5 MG TABLET PO ×2 (08:00→19:34)
[2022-10-11] MEDS: FUROSEMIDE 40 MG TABLET 20 MG PO (08:00)
[2022-10-11] MEDS: POTASSIUM CHLORIDE 10 MEQ CAPSULE ER PO (08:01)
[2022-10-11] MEDS: SPIRONOLACTONE 25 MG TABLET PO (08:01)
[2022-10-11] MEDS: LACTOBACILLUS ACIDOPHILUS 1 TABLET 1 TAB PO ×3 (08:01→17:02)
[2022-10-11] MEDS: SERTRALINE 50 MG TABLET PO (08:01)
--- NOTE | 2022-10-11 14:27 | PC.NURSE ---
Informational note: Portable Grinding Machine Operator sent Oxycodone refill request to [facility] Triage as resident only has 4 tabs of Oxycodone remaining.
[2022-10-11] MEDS: MELATONIN 3 MG TABLET 6 MG PO (19:34)
[2022-10-11] MEDS: OXYCODONE 5 MG TABLET PO (21:35)
[2022-10-12] MEDS: ACETAMINOPHEN 325 MG TABLET 975 MG PO ×2 (05:40→13:51)
[2022-10-12] MEDS: CHOLESTYRAMINE POWDER 4 GM PO ×2 (08:00→17:20)
[2022-10-12] MEDS: APIXABAN 5 MG TABLET PO ×2 (08:00→19:29)
[2022-10-12 08:01] VITALS: PULSE 70
[2022-10-12] MEDS: METOPROLOL TARTRATE 100 MG TABLET 50 MG PO ×2 (08:01→16:07)
[2022-10-12] MEDS: FERROUS SULFATE 325 MG TABLET PO (08:01)
[2022-10-12] MEDS: POTASSIUM CHLORIDE 10 MEQ CAPSULE ER PO (08:01)
[2022-10-12] MEDS: LACTOBACILLUS ACIDOPHILUS 1 TABLET 1 TAB PO ×3 (08:01→17:20)
[2022-10-12] MEDS: SPIRONOLACTONE 25 MG TABLET PO (08:01)
[2022-10-12] MEDS: FUROSEMIDE 40 MG TABLET 20 MG PO (08:01)
[2022-10-12] MEDS: SERTRALINE 50 MG TABLET PO (08:01)
[2022-10-12] MEDS: DIGOXIN 250 MCG TABLET PO (08:01)
[2022-10-12] MEDS: LORATADINE 10 MG TABLET PO (08:01)
[2022-10-12] MEDS: LOPERAMIDE HCL 2 MG CAPSULE PO (12:03)
[2022-10-12 16:07] VITALS: TEMP 36.9
[2022-10-12] MEDS: MELATONIN 3 MG TABLET 6 MG PO (19:29)
[2022-10-12] MEDS: OXYCODONE 5 MG TABLET PO (21:31)
[2022-10-13] MEDS: ACETAMINOPHEN 325 MG TABLET 975 MG PO ×2 (04:57→14:34)
[2022-10-13 08:03] VITALS: PULSE 68
[2022-10-13] MEDS: CHOLESTYRAMINE POWDER 4 GM PO ×2 (08:03→17:15)
[2022-10-13] MEDS: METOPROLOL TARTRATE 100 MG TABLET 50 MG PO ×2 (08:03→15:21)
[2022-10-13] MEDS: APIXABAN 5 MG TABLET PO ×2 (08:03→19:39)
[2022-10-13] MEDS: POTASSIUM CHLORIDE 10 MEQ CAPSULE ER PO (08:03)
[2022-10-13] MEDS: DIGOXIN 250 MCG TABLET PO (08:03)
[2022-10-13] MEDS: FERROUS SULFATE 325 MG TABLET PO (08:03)
[2022-10-13] MEDS: LORATADINE 10 MG TABLET PO (08:03)
[2022-10-13] MEDS: FUROSEMIDE 40 MG TABLET 20 MG PO (08:03)
[2022-10-13] MEDS: SPIRONOLACTONE 25 MG TABLET PO (08:04)
[2022-10-13] MEDS: LACTOBACILLUS ACIDOPHILUS 1 TABLET 1 TAB PO ×3 (08:04→17:15)
[2022-10-13] MEDS: SERTRALINE 50 MG TABLET PO (08:04)
[2022-10-13] MEDS: LOPERAMIDE HCL 2 MG CAPSULE PO ×2 (11:30→17:36)
--- NOTE | 2022-10-13 13:12 | PC.NURSE ---
Order: SENIOR ANALYST DEVELOPER, Julieta here. Loperamide 2 mg QAM & 2 mg QID PRN, Discontinue Loperamide 2-4 mg once.
[2022-10-13] MEDS: MELATONIN 3 MG TABLET 6 MG PO (19:39)
[2022-10-13] MEDS: OXYCODONE 5 MG TABLET PO (21:55)
[2022-10-14] MEDS: ACETAMINOPHEN 325 MG TABLET 975 MG PO (05:39)
[2022-10-14] MEDS: CHOLESTYRAMINE POWDER 4 GM PO ×2 (08:20→17:03)
[2022-10-14] MEDS: METOPROLOL TARTRATE 100 MG TABLET 50 MG PO ×2 (08:21→16:14)
[2022-10-14] MEDS: FUROSEMIDE 40 MG TABLET 20 MG PO (08:21)
[2022-10-14] MEDS: APIXABAN 5 MG TABLET PO ×2 (08:21→20:31)
[2022-10-14] MEDS: FERROUS SULFATE 325 MG TABLET PO (08:21)
[2022-10-14] MEDS: LORATADINE 10 MG TABLET PO (08:21)
[2022-10-14] MEDS: SPIRONOLACTONE 25 MG TABLET PO (08:22)
[2022-10-14] MEDS: SERTRALINE 50 MG TABLET PO (08:22)
[2022-10-14] MEDS: LACTOBACILLUS ACIDOPHILUS 1 TABLET 1 TAB PO ×3 (08:22→16:48)
[2022-10-14] MEDS: POTASSIUM CHLORIDE 10 MEQ CAPSULE ER PO (08:22)
[2022-10-14] MEDS: LOPERAMIDE HCL 2 MG CAPSULE PO (08:23)
[2022-10-14 08:26] VITALS: PULSE 72
[2022-10-14] MEDS: DIGOXIN 250 MCG TABLET PO (08:26)
[2022-10-14] MEDS: OXYCODONE 5 MG TABLET PO (20:31)
[2022-10-14] MEDS: MELATONIN 3 MG TABLET 6 MG PO (20:31)
[2022-10-15 08:09] VITALS: PULSE 72
[2022-10-15] MEDS: CHOLESTYRAMINE POWDER 4 GM PO ×2 (08:09→17:09)
[2022-10-15] MEDS: SERTRALINE 50 MG TABLET PO (08:09)
[2022-10-15] MEDS: METOPROLOL TARTRATE 100 MG TABLET 50 MG PO ×2 (08:09→15:18)
[2022-10-15] MEDS: LORATADINE 10 MG TABLET PO (08:09)
[2022-10-15] MEDS: SPIRONOLACTONE 25 MG TABLET PO (08:09)
[2022-10-15] MEDS: POTASSIUM CHLORIDE 10 MEQ CAPSULE ER PO (08:09)
[2022-10-15] MEDS: APIXABAN 5 MG TABLET PO ×2 (08:09→19:33)
[2022-10-15] MEDS: FUROSEMIDE 40 MG TABLET 20 MG PO (08:09)
[2022-10-15] MEDS: FERROUS SULFATE 325 MG TABLET PO (08:09)
[2022-10-15] MEDS: DIGOXIN 250 MCG TABLET PO (08:09)
[2022-10-15] MEDS: LACTOBACILLUS ACIDOPHILUS 1 TABLET 1 TAB PO ×3 (08:09→17:09)
[2022-10-15] MEDS: LOPERAMIDE HCL 2 MG CAPSULE PO (08:10)
--- NOTE | 2022-10-15 13:03 | NUTR.NU ---
Nutrition Follow-Up: RDN monitoring resident at high-risk due to past and current weight loss. Current weight 253lbs 10/05/22; 30 day weight 250lbs 09/09/22; 90 day weight 273lbs 07/09/22; 180 day weight 292lbs. Resident's weight is stable at 30 day weight, weight loss noted on 90 day weight, but not significant, and significant weight loss noted on 180 day weight. Resident reports that weight loss has been intentional. Current BMI is obese at 43.4 kg/m2. Resident reports that she would like to continue with weight loss. RDN recommends 1-3 lbs weight loss per week for safe, gradual weight loss. This is equal to about ~0.5-1% loss of body weight per week. Current diet is regular with double protein portions at meals, per MD order. Resident is currently receiving Diabetic friendly snacks once daily. This once daily provides an additional ~100-200 kcals and ~5-15 grams of protein per day to help meet estimated kcal and protein requirements. No current meal intakes to assess. Typically only orders/consumes lunch and Dinner. She is ordering high protein snack in the morning. Resident reports feeling full and satisfied following meals and notes getting enough to eat at meals and snacks. Resident states that she will ask for additional snacks/food if feeling hungry. RDN will continue to monitor weight monthly and follow-up PRN. No interventions to be made at this time. RDN will continue to follow.
--- NOTE | 2022-10-15 15:30 | PC.PHA1 ---
ORIENTATION AND MOBILITY INSTRUCTOR PHARMACIST'S MEDICATION REVIEW: MEDICATION MONITORING:Sertraline 50 mg daily IRREGULARITY OR COMMENTS:Patient had surgery early September for uterine bleeding, medroxyprogesterone discontinued post surgery. No other medication changes. Patient continues to lose weight but she reports it is intensional. Sertraline dose started during her hospital stay this past April, and she does share anxieties with staff. SUGGESTED COURSE OF ACTION TAKEN:Sertraline dose could be increased should patient like to try to help with her continued improvement now post op.
[2022-10-15] MEDS: MELATONIN 3 MG TABLET 6 MG PO (19:33)
[2022-10-15] MEDS: ACETAMINOPHEN 325 MG TABLET 975 MG PO (21:42)
--- NOTE | 2022-10-16 01:16 | PC.NURSE ---
Weekly Charting week 2 Mobility Vital signs reviewed with no concerns. Comprehensive and temporary care plan reviewed with no changes made. Res needs one staff assist with the use of EZ Stand for transfer. Limited to extensive assist of 1-2 staff with bed mobility, Able to participate turning side to side. Has 1/4 side rails to promote independence with bed mobility. Able to propel wheelchair independent in the room. Nursing to ambulate with patient x2/day (AM/PM) in hallway with rolling walker. Don gait belt prior and follow closely with wheelchair. Patient use one arm rest and rail in hallway to stand with walker, SBA . Have patient attempt to ambulate as far as she can, aiming 3 trial.?No fall in the past month. Fall risk assessment indicate Res is a low fall risk according to assessment done on 08/11/2022. Fall prevention: call light within reach, Bed in low position with brakes on, Wear no slips socks
[2022-10-16] MEDS: ACETAMINOPHEN 325 MG TABLET 975 MG PO ×2 (05:46→21:40)
[2022-10-16] MEDS: CHOLESTYRAMINE POWDER 4 GM PO ×2 (08:20→17:12)
[2022-10-16 08:21] VITALS: PULSE 72
[2022-10-16] MEDS: FUROSEMIDE 40 MG TABLET 20 MG PO (08:21)
[2022-10-16] MEDS: METOPROLOL TARTRATE 100 MG TABLET 50 MG PO ×2 (08:21→16:15)
[2022-10-16] MEDS: APIXABAN 5 MG TABLET PO ×2 (08:21→19:51)
[2022-10-16] MEDS: DIGOXIN 250 MCG TABLET PO (08:21)
[2022-10-16] MEDS: POTASSIUM CHLORIDE 10 MEQ CAPSULE ER PO (08:21)
[2022-10-16] MEDS: FERROUS SULFATE 325 MG TABLET PO (08:21)
[2022-10-16] MEDS: LORATADINE 10 MG TABLET PO (08:21)
[2022-10-16] MEDS: SERTRALINE 50 MG TABLET PO (08:24)
[2022-10-16] MEDS: LOPERAMIDE HCL 2 MG CAPSULE PO (08:24)
[2022-10-16] MEDS: SPIRONOLACTONE 25 MG TABLET PO (08:24)
[2022-10-16] MEDS: LACTOBACILLUS ACIDOPHILUS 1 TABLET 1 TAB PO ×3 (08:24→17:11)
--- NOTE | 2022-10-16 08:29 | PC.NURSE ---
Weekly Charting, Week 2 - Mobility:? Comprehensive and temporary care plan reviewed. No changes made, nothing added to temporary care plan. May ambulate to commode with walker or transfer from w/c with SBA using gait belt. Minimize use of medi stand as much as possible with 1 assist.?Is on the ambulation BID in hallway with rolling walker, gait belt, one assist followed with wheelchair. Patient uses one arm and rail in hallway to stand with walker, SBA. Is able to reposition self in bed and chair. Will call for assists as needed. Resident instructed to wheel herself at least once/day. No alarms. Bilateral 1/4 bed rails up at all times to promote independence with bed positioning. Vital signs reviewed, no concerns. Fall: No falls the past month.? Remains a low fall risk according to assessment done on 08/11/22. Fall interventions: Call light within reach, bed in low position with brakes locked, gripper socks for transfer.
[2022-10-16] MEDS: MELATONIN 3 MG TABLET 6 MG PO (19:51)
[2022-10-17 08:35] VITALS: PULSE 68
[2022-10-17] MEDS: APIXABAN 5 MG TABLET PO ×2 (08:35→20:17)
[2022-10-17] MEDS: DIGOXIN 250 MCG TABLET PO (08:35)
[2022-10-17] MEDS: FERROUS SULFATE 325 MG TABLET PO (08:35)
[2022-10-17] MEDS: FUROSEMIDE 40 MG TABLET 20 MG PO (08:35)
[2022-10-17] MEDS: CHOLESTYRAMINE POWDER 4 GM PO ×2 (08:35→17:15)
[2022-10-17] MEDS: METOPROLOL TARTRATE 100 MG TABLET 50 MG PO ×2 (08:35→16:00)
[2022-10-17] MEDS: POTASSIUM CHLORIDE 10 MEQ CAPSULE ER PO (08:36)
[2022-10-17] MEDS: SPIRONOLACTONE 25 MG TABLET PO (08:36)
[2022-10-17] MEDS: LORATADINE 10 MG TABLET PO (08:36)
[2022-10-17] MEDS: LOPERAMIDE HCL 2 MG CAPSULE PO (08:36)
[2022-10-17] MEDS: LACTOBACILLUS ACIDOPHILUS 1 TABLET 1 TAB PO ×3 (08:36→17:15)
[2022-10-17] MEDS: SERTRALINE 50 MG TABLET PO (08:36)
[2022-10-17] MEDS: ACETAMINOPHEN 325 MG TABLET 975 MG PO ×2 (11:29→20:59)
[2022-10-17 15:00] VITALS: BP 119/77; PULSE 68; RESP 16; TEMP 36.7; O2SAT 97
[2022-10-17] MEDS: MELATONIN 3 MG TABLET 6 MG PO (20:17)
[2022-10-18] MEDS: ACETAMINOPHEN 325 MG TABLET 975 MG PO ×2 (04:45→21:13)
[2022-10-18 07:56] VITALS: PULSE 74
[2022-10-18] MEDS: APIXABAN 5 MG TABLET PO ×2 (07:56→19:37)
[2022-10-18] MEDS: DIGOXIN 250 MCG TABLET PO (07:56)
[2022-10-18] MEDS: CHOLESTYRAMINE POWDER 4 GM PO ×2 (07:56→17:21)
[2022-10-18] MEDS: FERROUS SULFATE 325 MG TABLET PO (07:56)
[2022-10-18] MEDS: METOPROLOL TARTRATE 100 MG TABLET 50 MG PO ×2 (07:57→15:39)
[2022-10-18] MEDS: SPIRONOLACTONE 25 MG TABLET PO (07:57)
[2022-10-18] MEDS: SERTRALINE 50 MG TABLET PO (07:57)
[2022-10-18] MEDS: POTASSIUM CHLORIDE 10 MEQ CAPSULE ER PO (07:57)
[2022-10-18] MEDS: LACTOBACILLUS ACIDOPHILUS 1 TABLET 1 TAB PO ×3 (07:57→17:21)
[2022-10-18] MEDS: LORATADINE 10 MG TABLET PO (07:57)
[2022-10-18] MEDS: FUROSEMIDE 40 MG TABLET 20 MG PO (07:57)
[2022-10-18] MEDS: LOPERAMIDE HCL 2 MG CAPSULE PO (08:10)
[2022-10-18] MEDS: MELATONIN 3 MG TABLET 6 MG PO (19:37)
[2022-10-18 21:23] VITALS: BMI 44.9
[2022-10-19] MEDS: ACETAMINOPHEN 325 MG TABLET 975 MG PO ×2 (06:30→21:24)
[2022-10-19 08:15] VITALS: PULSE 72
[2022-10-19] MEDS: FERROUS SULFATE 325 MG TABLET PO (08:15)
[2022-10-19] MEDS: APIXABAN 5 MG TABLET PO ×2 (08:15→19:40)
[2022-10-19] MEDS: CHOLESTYRAMINE POWDER 4 GM PO ×2 (08:15→17:02)
[2022-10-19] MEDS: DIGOXIN 250 MCG TABLET PO (08:15)
[2022-10-19] MEDS: POTASSIUM CHLORIDE 10 MEQ CAPSULE ER PO (08:16)
[2022-10-19] MEDS: SPIRONOLACTONE 25 MG TABLET PO (08:16)
[2022-10-19] MEDS: LOPERAMIDE HCL 2 MG CAPSULE PO (08:16)
[2022-10-19] MEDS: METOPROLOL TARTRATE 100 MG TABLET 50 MG PO ×2 (08:16→15:39)
[2022-10-19] MEDS: LORATADINE 10 MG TABLET PO (08:16)
[2022-10-19] MEDS: LACTOBACILLUS ACIDOPHILUS 1 TABLET 1 TAB PO ×3 (08:16→17:02)
[2022-10-19] MEDS: FUROSEMIDE 40 MG TABLET 20 MG PO (08:16)
[2022-10-19] MEDS: SERTRALINE 50 MG TABLET PO (08:16)
[2022-10-19] MEDS: MELATONIN 3 MG TABLET 6 MG PO (19:40)
[2022-10-20] MEDS: CHOLESTYRAMINE POWDER 4 GM PO ×2 (08:27→17:21)
[2022-10-20] MEDS: FERROUS SULFATE 325 MG TABLET PO (08:28)
[2022-10-20] MEDS: APIXABAN 5 MG TABLET PO ×2 (08:28→19:52)
[2022-10-20] MEDS: FUROSEMIDE 40 MG TABLET 20 MG PO (08:28)
[2022-10-20] MEDS: LORATADINE 10 MG TABLET PO (08:29)
[2022-10-20] MEDS: METOPROLOL TARTRATE 100 MG TABLET 50 MG PO ×2 (08:29→15:59)
[2022-10-20] MEDS: LACTOBACILLUS ACIDOPHILUS 1 TABLET 1 TAB PO ×3 (08:29→17:21)
[2022-10-20] MEDS: SPIRONOLACTONE 25 MG TABLET PO (08:29)
[2022-10-20] MEDS: POTASSIUM CHLORIDE 10 MEQ CAPSULE ER PO (08:29)
[2022-10-20] MEDS: SERTRALINE 50 MG TABLET PO (08:30)
[2022-10-20] MEDS: LOPERAMIDE HCL 2 MG CAPSULE PO (08:30)
[2022-10-20 08:42] VITALS: PULSE 72
[2022-10-20] MEDS: DIGOXIN 250 MCG TABLET PO (08:42)
[2022-10-20] MEDS: ACETAMINOPHEN 325 MG TABLET 975 MG PO ×2 (11:57→21:43)
--- NOTE | 2022-10-20 12:36 | PC.NURSE ---
Appointment: Went to see Dr. Mcclendon's Nurse Practitioner in [facility] via EMS.
--- NOTE | 2022-10-20 12:42 | PC.NURSE ---
Appointment note: Resident left for afternoon appointment by [facility] transport at 1240 in order to have follow up appointment and tim removed following hysterectomy procedure. Consult paperwork sent with resident.
--- NOTE | 2022-10-20 12:43 | PC.NURSE ---
Informational note: Res requesting to have lunch after returning from afternoon appointment. Staff did approach before lunch to encourage meal though resident requested to have meal saved until she returns.
--- NOTE | 2022-10-20 15:44 | PC.NURSE ---
MD Visit: Resident return from MD appointment via stretcher, per discharge orders steri strips applied, allow to fall of naturally, call office with fever over 101, worsening pain or symptoms of infection , otherwise no further return visits indicated.
[2022-10-20] MEDS: MELATONIN 3 MG TABLET 6 MG PO (19:52)
[2022-10-21] MEDS: FERROUS SULFATE 325 MG TABLET PO (08:02)
[2022-10-21] MEDS: APIXABAN 5 MG TABLET PO ×2 (08:02→19:48)
[2022-10-21] MEDS: CHOLESTYRAMINE POWDER 4 GM PO ×2 (08:02→17:04)
[2022-10-21 08:03] VITALS: PULSE 70
[2022-10-21] MEDS: LORATADINE 10 MG TABLET PO (08:03)
[2022-10-21] MEDS: POTASSIUM CHLORIDE 10 MEQ CAPSULE ER PO (08:03)
[2022-10-21] MEDS: SERTRALINE 50 MG TABLET PO (08:03)
[2022-10-21] MEDS: FUROSEMIDE 40 MG TABLET 20 MG PO (08:03)
[2022-10-21] MEDS: SPIRONOLACTONE 25 MG TABLET PO (08:03)
[2022-10-21] MEDS: LACTOBACILLUS ACIDOPHILUS 1 TABLET 1 TAB PO ×3 (08:03→17:04)
[2022-10-21] MEDS: DIGOXIN 250 MCG TABLET PO (08:03)
[2022-10-21] MEDS: METOPROLOL TARTRATE 100 MG TABLET 50 MG PO ×2 (08:03→15:46)
[2022-10-21] MEDS: LOPERAMIDE HCL 2 MG CAPSULE PO (08:03)
--- NOTE | 2022-10-21 10:01 | PC.NURSE ---
Wound care: Resident wound was oozing in the middle with moderate serous discharge. Bundle Helper cleaned the wound,applied steri strip and cover with 4X4 gauze. Staff to monitor daily for infection.
--- NOTE | 2022-10-21 11:34 | PC.PHA1 ---
PROGRAMS MANAGER PHARMACIST'S MEDICATION REVIEW: MEDICATION MONITORING:sertraline 50 mg daiy IRREGULARITY OR COMMENTS:Patient continues to rehab post PATROL CAPTAIN surgery and plans to return to her apartment. SUGGESTED COURSE OF ACTION TAKEN: Could consider increasing sertraline to 100 mg daily to help patient with post op rehab.
[2022-10-21] MEDS: MELATONIN 3 MG TABLET 6 MG PO (19:48)
[2022-10-21] MEDS: ACETAMINOPHEN 325 MG TABLET 975 MG PO (21:47)
[2022-10-22] MEDS: ACETAMINOPHEN 325 MG TABLET 975 MG PO ×2 (07:44→21:09)
[2022-10-22 07:47] VITALS: PULSE 74
[2022-10-22] MEDS: FERROUS SULFATE 325 MG TABLET PO (07:47)
[2022-10-22] MEDS: DIGOXIN 250 MCG TABLET PO (07:47)
[2022-10-22] MEDS: METOPROLOL TARTRATE 100 MG TABLET 50 MG PO ×2 (07:47→15:58)
[2022-10-22] MEDS: APIXABAN 5 MG TABLET PO ×2 (07:47→19:29)
[2022-10-22] MEDS: FUROSEMIDE 40 MG TABLET 20 MG PO (07:47)
[2022-10-22] MEDS: CHOLESTYRAMINE POWDER 4 GM PO ×2 (07:47→17:00)
[2022-10-22] MEDS: SPIRONOLACTONE 25 MG TABLET PO (07:48)
[2022-10-22] MEDS: POTASSIUM CHLORIDE 10 MEQ CAPSULE ER PO (07:48)
[2022-10-22] MEDS: LACTOBACILLUS ACIDOPHILUS 1 TABLET 1 TAB PO ×3 (07:48→16:57)
[2022-10-22] MEDS: LORATADINE 10 MG TABLET PO (07:48)
[2022-10-22] MEDS: SERTRALINE 50 MG TABLET PO (07:48)
[2022-10-22] MEDS: LOPERAMIDE HCL 2 MG CAPSULE PO (08:13)
--- NOTE | 2022-10-22 16:36 | PC.SOCIAL ---
Met with resident and discussed discharge plans. Resident plans to work towards goals for returning home. Discussed a back up plan if goals are not met. Resident is ok with this worker sending a referral to [facility] as a back up plan. Phone call to Yolanda in admissions at [facility] and discussed referral. [facility] will review. Secure emailed referral to Yolanda Walter at [facility]. Social work will follow up as needed.
[2022-10-22] MEDS: MELATONIN 3 MG TABLET 6 MG PO (19:29)
--- NOTE | 2022-10-22 21:38 | PC.NURSE ---
Resident isn't asking to be taken to toilet this shift and last nights evening shift. Resident has been soaked thru into the recliner d/t not asking to toilet this shift. Resident used EZ Stand to toilet this shift despite encouragement to ambulate.
--- NOTE | 2022-10-23 01:32 | PC.NURSE ---
Weekly Charting Week 3 Toileting and Skin Vital signs reviewed with no concerns. Comprehensive and temporary care plan reviewed with no changes made. Toileting: Res is occasional incontinent of bladder, continent of bowel. Res is able to use the call light when needed to use the toilet. May ambulate to commode with walker or transfer from wheelchair with SBA using gait belt. May use Medi stand assisted by 1 staff as needed. Alie cares, incontinent pad, and clothing adjustment managed by staff. Wears XX large briefs. Skin: Res has abdominal surgical wound with steri strip on and cover with gauze. Staff to monitor s/s of redness, pain, swelling or any unusual drainage. Bilateral legs applied lotion every evening for dry skin. Skin check every bath days and during cares.
--- NOTE | 2022-10-23 07:31 | PC.NURSE ---
Weekly Charting, Week 3 - Toileting: Comprehensive and temporary care plan reviewed. No changes made, nothing added to temporary care plan. Resident dribbles urine. Continent of bowels. Staff toilet per her request. She may ambulate to commode with walker or transfer from /c with SBA using gait belt for safety. Vital signs reviewed, few low BP's. Continue weekly monitoring. Skin: No issues at this time. Has wraps to bilateral lower extremities for lymphedema on-am, off-hs. Abdominal incision steri strips in place. No s/s of infection, monitored until healed. Skin is checked routinely during cares and on bath days.
[2022-10-23 07:49] VITALS: PULSE 72
[2022-10-23] MEDS: FERROUS SULFATE 325 MG TABLET PO (07:49)
[2022-10-23] MEDS: FUROSEMIDE 40 MG TABLET 20 MG PO (07:49)
[2022-10-23] MEDS: APIXABAN 5 MG TABLET PO ×2 (07:49→19:25)
[2022-10-23] MEDS: CHOLESTYRAMINE POWDER 4 GM PO ×2 (07:49→17:14)
[2022-10-23] MEDS: DIGOXIN 250 MCG TABLET PO (07:49)
[2022-10-23] MEDS: METOPROLOL TARTRATE 100 MG TABLET 50 MG PO ×2 (07:50→15:32)
[2022-10-23] MEDS: SERTRALINE 50 MG TABLET PO (07:50)
[2022-10-23] MEDS: SPIRONOLACTONE 25 MG TABLET PO (07:50)
[2022-10-23] MEDS: LORATADINE 10 MG TABLET PO (07:50)
[2022-10-23] MEDS: LACTOBACILLUS ACIDOPHILUS 1 TABLET 1 TAB PO ×3 (07:50→17:14)
[2022-10-23] MEDS: POTASSIUM CHLORIDE 10 MEQ CAPSULE ER PO (07:50)
[2022-10-23] MEDS: LOPERAMIDE HCL 2 MG CAPSULE PO (08:24)
[2022-10-23] MEDS: MELATONIN 3 MG TABLET 6 MG PO (19:25)
[2022-10-23] MEDS: ACETAMINOPHEN 325 MG TABLET 975 MG PO (21:17)
[2022-10-24] MEDS: CHOLESTYRAMINE POWDER 4 GM PO ×2 (08:21→17:13)
[2022-10-24] MEDS: METOPROLOL TARTRATE 100 MG TABLET 50 MG PO ×2 (08:21→15:47)
[2022-10-24] MEDS: APIXABAN 5 MG TABLET PO ×2 (08:21→19:22)
[2022-10-24] MEDS: FERROUS SULFATE 325 MG TABLET PO (08:21)
[2022-10-24] MEDS: FUROSEMIDE 40 MG TABLET 20 MG PO (08:21)
[2022-10-24] MEDS: POTASSIUM CHLORIDE 10 MEQ CAPSULE ER PO (08:22)
[2022-10-24] MEDS: LORATADINE 10 MG TABLET PO (08:22)
[2022-10-24] MEDS: LACTOBACILLUS ACIDOPHILUS 1 TABLET 1 TAB PO ×3 (08:22→17:13)
[2022-10-24] MEDS: LOPERAMIDE HCL 2 MG CAPSULE PO (08:22)
[2022-10-24] MEDS: SPIRONOLACTONE 25 MG TABLET PO (08:22)
[2022-10-24] MEDS: SERTRALINE 50 MG TABLET PO (08:23)
[2022-10-24 08:28] VITALS: PULSE 64
[2022-10-24] MEDS: DIGOXIN 250 MCG TABLET PO (08:28)
--- NOTE | 2022-10-24 09:28 | PC.NURSE ---
Informational note: Resident refused shower when approached this morning though did allow staff to complete bed bath. She refused to have weight obtained and understands that next bath day will be scheduled for Wednesday of next week on 10/28/22 as schedule change for bath schedule has been completed. Skin check also completed during bed bath.
[2022-10-24 10:22] VITALS: BP 119/75; PULSE 64; RESP 16; TEMP 36.9; O2SAT 95
[2022-10-24] MEDS: MELATONIN 3 MG TABLET 6 MG PO (19:22)
[2022-10-24] MEDS: ACETAMINOPHEN 325 MG TABLET 975 MG PO (22:03)
[2022-10-25] MEDS: CHOLESTYRAMINE POWDER 4 GM PO ×2 (08:02→17:01)
[2022-10-25] MEDS: POTASSIUM CHLORIDE 10 MEQ CAPSULE ER PO (08:03)
[2022-10-25] MEDS: METOPROLOL TARTRATE 100 MG TABLET 50 MG PO ×2 (08:03→15:30)
[2022-10-25] MEDS: LORATADINE 10 MG TABLET PO (08:03)
[2022-10-25] MEDS: FERROUS SULFATE 325 MG TABLET PO (08:03)
[2022-10-25] MEDS: FUROSEMIDE 40 MG TABLET 20 MG PO (08:03)
[2022-10-25] MEDS: APIXABAN 5 MG TABLET PO ×2 (08:03→19:22)
[2022-10-25] MEDS: SPIRONOLACTONE 25 MG TABLET PO (08:04)
[2022-10-25] MEDS: LACTOBACILLUS ACIDOPHILUS 1 TABLET 1 TAB PO ×3 (08:04→17:01)
[2022-10-25] MEDS: SERTRALINE 50 MG TABLET PO (08:04)
[2022-10-25 08:08] VITALS: PULSE 72
[2022-10-25] MEDS: LOPERAMIDE HCL 2 MG CAPSULE PO (08:08)
[2022-10-25] MEDS: DIGOXIN 250 MCG TABLET PO (08:08)
[2022-10-25] MEDS: MELATONIN 3 MG TABLET 6 MG PO (19:22)
[2022-10-25] MEDS: ACETAMINOPHEN 325 MG TABLET 975 MG PO (21:40)
[2022-10-26 08:21] VITALS: PULSE 66
[2022-10-26] MEDS: METOPROLOL TARTRATE 100 MG TABLET 50 MG PO ×2 (08:21→15:02)
[2022-10-26] MEDS: POTASSIUM CHLORIDE 10 MEQ CAPSULE ER PO (08:21)
[2022-10-26] MEDS: FUROSEMIDE 40 MG TABLET 20 MG PO (08:21)
[2022-10-26] MEDS: APIXABAN 5 MG TABLET PO ×2 (08:21→19:48)
[2022-10-26] MEDS: DIGOXIN 250 MCG TABLET PO (08:21)
[2022-10-26] MEDS: FERROUS SULFATE 325 MG TABLET PO (08:21)
[2022-10-26] MEDS: CHOLESTYRAMINE POWDER 4 GM PO ×2 (08:21→17:01)
[2022-10-26] MEDS: LORATADINE 10 MG TABLET PO (08:21)
[2022-10-26] MEDS: LOPERAMIDE HCL 2 MG CAPSULE PO (08:22)
[2022-10-26] MEDS: LACTOBACILLUS ACIDOPHILUS 1 TABLET 1 TAB PO ×3 (08:22→16:46)
[2022-10-26] MEDS: SPIRONOLACTONE 25 MG TABLET PO (08:22)
[2022-10-26] MEDS: SERTRALINE 50 MG TABLET PO (08:22)
--- NOTE | 2022-10-26 16:00 | PC.NURSE ---
Met with resident for care conference to discuss discharge planning. Shipping Checker, occupational therapist, medical social consultant and LOG SORTING SUPERVISOR were all in attendance. Discussed resident preference to return home to independent living at [facility]. Resident is agreeable to backup plan of [facility] (they have agreed to accept her if needed). Reviewed what return home would look like and discussed concerns. Resident is unsure who will follow as her PCP once she returns - this poem writer will look into if [facility] to [facility]. Resident is agreeable to in-home PT/OT at discharge. In-home assessment was planned for This Wednesday, Oct 30, but is delayed due to apartment renovations. This will be rescheduled for some time next week. Resident is also interested in life-alert button and options for in-home meals. SW and RD will look into these for resident. OT will work with resident on meal prep in the kitchen at the [facility] this week. REsident would like [facility] to be her primary pharmacy if they can deliver. RN will follow up on questions for next care conference Nov 17.
[2022-10-26] MEDS: MELATONIN 3 MG TABLET 6 MG PO (19:48)
[2022-10-26] MEDS: ACETAMINOPHEN 325 MG TABLET 975 MG PO (21:20)
[2022-10-27] MEDS: CHOLESTYRAMINE POWDER 4 GM PO ×2 (08:01→17:18)
[2022-10-27] MEDS: APIXABAN 5 MG TABLET PO ×2 (08:02→19:24)
[2022-10-27] MEDS: LORATADINE 10 MG TABLET PO (08:02)
[2022-10-27] MEDS: FUROSEMIDE 40 MG TABLET 20 MG PO (08:02)
[2022-10-27] MEDS: FERROUS SULFATE 325 MG TABLET PO (08:02)
[2022-10-27] MEDS: POTASSIUM CHLORIDE 10 MEQ CAPSULE ER PO (08:02)
[2022-10-27] MEDS: METOPROLOL TARTRATE 100 MG TABLET 50 MG PO ×2 (08:02→15:51)
[2022-10-27] MEDS: LACTOBACILLUS ACIDOPHILUS 1 TABLET 1 TAB PO ×3 (08:03→17:18)
[2022-10-27] MEDS: LOPERAMIDE HCL 2 MG CAPSULE PO (08:03)
[2022-10-27] MEDS: SPIRONOLACTONE 25 MG TABLET PO (08:03)
[2022-10-27] MEDS: SERTRALINE 50 MG TABLET PO (08:03)
[2022-10-27 08:27] VITALS: PULSE 72
[2022-10-27] MEDS: DIGOXIN 250 MCG TABLET PO (08:27)
--- NOTE | 2022-10-27 14:23 | PC.SOCIAL ---
Care conference held on 10/26/22 at 1:00 pm per resident's request to discuss discharge plans. Resident has been working hard with OT to meet goals and return to home. Resident's goal is to transition into her apartment from [facility] by mid October. Resident's back up plan is [facility] if more therapy is needed. Resident has her keys to do a home safety evaluation, but is not able to do the evaluation on 10/30 due to repairs that will be completed on the home. Home safety evaluation will be rescheduled to next week and OT will reach out to this worker with the new date/time to schedule transportation. Resident would like more information on if [facility] offers meals delivered and more information on a Life Alert. This worker will get the information and provide to resident. Nursing and OT discussed DME that may be needed. This worker will follow up and provide information.
[2022-10-27] MEDS: MELATONIN 3 MG TABLET 6 MG PO (19:24)
[2022-10-27] MEDS: ACETAMINOPHEN 325 MG TABLET 975 MG PO (21:49)
[2022-10-28] MEDS: CHOLESTYRAMINE POWDER 4 GM PO ×2 (08:35→18:30)
[2022-10-28] MEDS: APIXABAN 5 MG TABLET PO ×2 (08:35→20:25)
[2022-10-28] MEDS: METOPROLOL TARTRATE 100 MG TABLET 50 MG PO ×2 (08:36→16:35)
[2022-10-28] MEDS: LACTOBACILLUS ACIDOPHILUS 1 TABLET 1 TAB PO ×3 (08:36→18:30)
[2022-10-28] MEDS: SPIRONOLACTONE 25 MG TABLET PO (08:36)
[2022-10-28] MEDS: FERROUS SULFATE 325 MG TABLET PO (08:36)
[2022-10-28] MEDS: FUROSEMIDE 40 MG TABLET 20 MG PO (08:36)
[2022-10-28] MEDS: LORATADINE 10 MG TABLET PO (08:36)
[2022-10-28] MEDS: POTASSIUM CHLORIDE 10 MEQ CAPSULE ER PO (08:36)
[2022-10-28] MEDS: LOPERAMIDE HCL 2 MG CAPSULE PO (08:37)
[2022-10-28] MEDS: SERTRALINE 50 MG TABLET PO (08:37)
[2022-10-28 09:00] VITALS: PULSE 68
[2022-10-28] MEDS: DIGOXIN 250 MCG TABLET PO (09:00)
[2022-10-28 10:19] VITALS: BP 110/74; PULSE 71; RESP 16; TEMP 36.2; O2SAT 100
--- NOTE | 2022-10-28 13:21 | PC.NURSE ---
Resident refused weekly bath and to obtain weight today telling nurse, I'm not interested in that because I don't want to be moved around. Resident did allow staff to assist her with bed bath on 10/24/22 and continues to allow staff to assist her with repositioning. Boil Off Worker trimmed fingernails and toenails today along with completing weekly skin assessment.
--- NOTE | 2022-10-28 14:36 | PC.SOCIAL ---
Phone call to [facility] income tax investigator (Ita). Discussed discharge plans for resident. Inquired on HUD credit for DME program. Ita informs that resident would need to pay for DME upfront and provide receipt to Ita. Resident can use any Life Alert program. [facility] does not deliver meals to the apartments so resident would need to get Moms meals or Meals on Wheels. Ita informs that both meals and life alerts are covered through the [facility]. Resident will get a return to the community referral and assessment. Provided information to resident and OT worker, Esme Og. Social work will follow up as needed.
[2022-10-28] MEDS: MELATONIN 3 MG TABLET 6 MG PO (20:25)
[2022-10-29 09:02] VITALS: PULSE 72
[2022-10-29] MEDS: APIXABAN 5 MG TABLET PO ×2 (09:02→20:21)
[2022-10-29] MEDS: FERROUS SULFATE 325 MG TABLET PO (09:02)
[2022-10-29] MEDS: CHOLESTYRAMINE POWDER 4 GM PO ×2 (09:02→17:00)
[2022-10-29] MEDS: DIGOXIN 250 MCG TABLET PO (09:02)
[2022-10-29] MEDS: FUROSEMIDE 40 MG TABLET 20 MG PO (09:02)
[2022-10-29] MEDS: METOPROLOL TARTRATE 100 MG TABLET 50 MG PO ×2 (09:02→16:59)
[2022-10-29] MEDS: SPIRONOLACTONE 25 MG TABLET PO (09:03)
[2022-10-29] MEDS: LACTOBACILLUS ACIDOPHILUS 1 TABLET 1 TAB PO ×3 (09:03→16:59)
[2022-10-29] MEDS: LORATADINE 10 MG TABLET PO (09:03)
[2022-10-29] MEDS: POTASSIUM CHLORIDE 10 MEQ CAPSULE ER PO (09:03)
[2022-10-29] MEDS: LOPERAMIDE HCL 2 MG CAPSULE PO (09:03)
[2022-10-29] MEDS: SERTRALINE 50 MG TABLET PO (09:03)
[2022-10-29] MEDS: MELATONIN 3 MG TABLET 6 MG PO (20:21)
--- NOTE | 2022-10-30 04:24 | PC.NURSE ---
Weekly Charting Week 4: Vital signs reviewed with concerns. Comprehensive and temporary care plan reviewed with no changes made. Vital signs reviewed with no concerns. Comprehensive and temporary care plan reviewed with no changes made. No behavioral documented in the past month. Receives sertraline 25 mg daily and melatonin 6mg at HS with no adverse drug effects noted. Communicates needs verbally. Able to use call light appropriately. No hearing or visual impairment. Cognitively intact. Medications administered by licensed nurse. Health status stable at this time.
--- NOTE | 2022-10-30 07:37 | PC.NURSE ---
Weekly Charting - Week 4: Comprehensive and temporary care plan reviewed. No changes made & nothing added to temporary care plan. No changes noted in communication, hearing, vision, or orientation. She does communicate needs & use the call light. Hearing and vision fine. Is cognitively intact. Vital signs reviewed, no concerns. Chronic health condition stable. 10/01 Had a hysterectomy done.Nurse administers all medications except for Biotene spray which she can self administer and kept with her in room. Mood/Behavior: No issues. Continues on Zoloft 50mg daily and Melatonin 6 mg @ HS with no adverse effects noted. No changes in medication.
[2022-10-30] MEDS: APIXABAN 5 MG TABLET PO ×2 (08:11→19:58)
[2022-10-30] MEDS: CHOLESTYRAMINE POWDER 4 GM PO ×2 (08:11→17:08)
[2022-10-30] MEDS: FERROUS SULFATE 325 MG TABLET PO (08:11)
[2022-10-30 08:12] VITALS: PULSE 70
[2022-10-30] MEDS: LORATADINE 10 MG TABLET PO (08:12)
[2022-10-30] MEDS: FUROSEMIDE 40 MG TABLET 20 MG PO (08:12)
[2022-10-30] MEDS: DIGOXIN 250 MCG TABLET PO (08:12)
[2022-10-30] MEDS: METOPROLOL TARTRATE 100 MG TABLET 50 MG PO ×2 (08:12→16:47)
[2022-10-30] MEDS: SPIRONOLACTONE 25 MG TABLET PO (08:13)
[2022-10-30] MEDS: POTASSIUM CHLORIDE 10 MEQ CAPSULE ER PO (08:13)
[2022-10-30] MEDS: LACTOBACILLUS ACIDOPHILUS 1 TABLET 1 TAB PO ×3 (08:13→16:47)
[2022-10-30] MEDS: SERTRALINE 50 MG TABLET PO (08:14)
[2022-10-30] MEDS: LOPERAMIDE HCL 2 MG CAPSULE PO (08:14)
[2022-10-30] MEDS: MELATONIN 3 MG TABLET 6 MG PO (19:58)
[2022-10-30] MEDS: ACETAMINOPHEN 325 MG TABLET 975 MG PO (21:39)
[2022-10-31 08:25] VITALS: PULSE 74
[2022-10-31] MEDS: SPIRONOLACTONE 25 MG TABLET PO (08:25)
[2022-10-31] MEDS: DIGOXIN 250 MCG TABLET PO (08:25)
[2022-10-31] MEDS: POTASSIUM CHLORIDE 10 MEQ CAPSULE ER PO (08:25)
[2022-10-31] MEDS: LACTOBACILLUS ACIDOPHILUS 1 TABLET 1 TAB PO ×3 (08:25→17:08)
[2022-10-31] MEDS: METOPROLOL TARTRATE 100 MG TABLET 50 MG PO ×2 (08:25→16:59)
[2022-10-31] MEDS: LORATADINE 10 MG TABLET PO (08:25)
[2022-10-31] MEDS: SERTRALINE 50 MG TABLET PO (08:25)
[2022-10-31] MEDS: FUROSEMIDE 40 MG TABLET 20 MG PO (08:25)
[2022-10-31] MEDS: CHOLESTYRAMINE POWDER 4 GM PO ×2 (08:25→17:08)
[2022-10-31] MEDS: APIXABAN 5 MG TABLET PO ×2 (08:25→19:44)
[2022-10-31] MEDS: FERROUS SULFATE 325 MG TABLET PO (08:25)
[2022-10-31] MEDS: LOPERAMIDE HCL 2 MG CAPSULE PO (09:23)
[2022-10-31] MEDS: MELATONIN 3 MG TABLET 6 MG PO (19:44)
[2022-10-31 21:42] VITALS: TEMP 36.7
[2022-10-31] MEDS: ACETAMINOPHEN 325 MG TABLET 975 MG PO (21:42)
[2022-11-01] MEDS: CHOLESTYRAMINE POWDER 4 GM PO ×2 (08:03→17:20)
[2022-11-01] MEDS: APIXABAN 5 MG TABLET PO ×2 (08:03→19:58)
[2022-11-01 08:04] VITALS: PULSE 70
[2022-11-01] MEDS: FUROSEMIDE 40 MG TABLET 20 MG PO (08:04)
[2022-11-01] MEDS: POTASSIUM CHLORIDE 10 MEQ CAPSULE ER PO (08:04)
[2022-11-01] MEDS: LORATADINE 10 MG TABLET PO (08:04)
[2022-11-01] MEDS: DIGOXIN 250 MCG TABLET PO (08:04)
[2022-11-01] MEDS: METOPROLOL TARTRATE 100 MG TABLET 50 MG PO ×2 (08:04→16:21)
[2022-11-01] MEDS: FERROUS SULFATE 325 MG TABLET PO (08:04)
[2022-11-01] MEDS: LOPERAMIDE HCL 2 MG CAPSULE PO (08:05)
[2022-11-01] MEDS: SERTRALINE 50 MG TABLET PO (08:05)
[2022-11-01] MEDS: SPIRONOLACTONE 25 MG TABLET PO (08:05)
[2022-11-01] MEDS: LACTOBACILLUS ACIDOPHILUS 1 TABLET 1 TAB PO ×3 (08:05→16:49)
[2022-11-01] MEDS: MELATONIN 3 MG TABLET 6 MG PO (19:58)
[2022-11-01] MEDS: ACETAMINOPHEN 325 MG TABLET 975 MG PO (21:47)
[2022-11-02 08:22] VITALS: PULSE 70
[2022-11-02] MEDS: APIXABAN 5 MG TABLET PO ×2 (08:22→20:33)
[2022-11-02] MEDS: FUROSEMIDE 40 MG TABLET 20 MG PO (08:22)
[2022-11-02] MEDS: METOPROLOL TARTRATE 100 MG TABLET 50 MG PO ×2 (08:22→16:50)
[2022-11-02] MEDS: CHOLESTYRAMINE POWDER 4 GM PO ×2 (08:22→17:14)
[2022-11-02] MEDS: DIGOXIN 250 MCG TABLET PO (08:22)
[2022-11-02] MEDS: FERROUS SULFATE 325 MG TABLET PO (08:22)
[2022-11-02] MEDS: POTASSIUM CHLORIDE 10 MEQ CAPSULE ER PO (08:23)
[2022-11-02] MEDS: SPIRONOLACTONE 25 MG TABLET PO (08:23)
[2022-11-02] MEDS: SERTRALINE 50 MG TABLET PO (08:23)
[2022-11-02] MEDS: LACTOBACILLUS ACIDOPHILUS 1 TABLET 1 TAB PO ×3 (08:23→17:14)
[2022-11-02] MEDS: LORATADINE 10 MG TABLET PO (08:23)
[2022-11-02] MEDS: LOPERAMIDE HCL 2 MG CAPSULE PO (08:24)
[2022-11-02] MEDS: MELATONIN 3 MG TABLET 6 MG PO (20:33)
[2022-11-03] MEDS: FUROSEMIDE 40 MG TABLET 20 MG PO (09:34)
[2022-11-03] MEDS: CHOLESTYRAMINE POWDER 4 GM PO ×2 (09:34→17:04)
[2022-11-03] MEDS: METOPROLOL TARTRATE 100 MG TABLET 50 MG PO ×2 (09:34→15:17)
[2022-11-03] MEDS: FERROUS SULFATE 325 MG TABLET PO (09:34)
[2022-11-03] MEDS: APIXABAN 5 MG TABLET PO ×2 (09:34→19:30)
[2022-11-03] MEDS: SPIRONOLACTONE 25 MG TABLET PO (09:35)
[2022-11-03] MEDS: POTASSIUM CHLORIDE 10 MEQ CAPSULE ER PO (09:35)
[2022-11-03] MEDS: LACTOBACILLUS ACIDOPHILUS 1 TABLET 1 TAB PO ×3 (09:35→17:04)
[2022-11-03] MEDS: SERTRALINE 50 MG TABLET PO (09:35)
[2022-11-03] MEDS: LORATADINE 10 MG TABLET PO (09:35)
[2022-11-03 09:40] VITALS: PULSE 101
[2022-11-03] MEDS: DIGOXIN 250 MCG TABLET PO (09:40)
--- NOTE | 2022-11-03 10:19 | PC.NURSE ---
Order: Julieta BAEZ here. Oxycodone 5 mg Q4H PRN & Senna-S BID PRN discontinued.
[2022-11-03] MEDS: LOPERAMIDE HCL 2 MG CAPSULE PO (10:35)
[2022-11-03 12:00] LABS: Basophils Percent Auto 0.2 % (0.0-3.0); Hematocrit 40.3 % (33.0-51.0); Lymphocytes Percent Auto 27.5 % (20-44); Mean Corpuscular HGB Conc 30 gm/dL (32-36); Mean Corpuscular Hemoglobin 26 pg (26-34); Mean Corpuscular Volume 89 fL (80-100); Monocytes Percent Auto 8.9 % (0.0-11.0); Neutrophils Percent Auto 60.4 % (42.0-72.0); Platelet Count* 163 K/uL (140-440); RDW Coefficient of Variation % 13.4 % (11.5-15.5); Red Blood Count 4.54 m/uL (4.00-5.20); White Blood Count* 4.03 K/uL (4.50-11.00)
[2022-11-03 12:03] LABS: Slide Review Reflex No
[2022-11-03 12:19] LABS: Chloride* 105 mmol/L (96-114); Potassium* 5.5 mmol/L (3.6-5.1); Sodium* 141 mmol/L (135-149)
[2022-11-03 12:22] LABS: Anion Gap 7 mEq/L (7-15); Blood Urea Nitrogen* 15 mg/dL (7-30); Calcium* 10.1 mg/dL (8.4-10.6); Carbon Dioxide* 29 mmol/L (20-32); Est. Creatinine Clearance* 43.91; Estimated Glomerular Filt Rate 60 ml/min; Glucose* 95 mg/dL (60-115)
[2022-11-03 13:28] VITALS: O2SAT 97
[2022-11-03] MEDS: MELATONIN 3 MG TABLET 6 MG PO (19:30)
[2022-11-03] MEDS: ACETAMINOPHEN 325 MG TABLET 975 MG PO (22:04)
[2022-11-04] MEDS: APIXABAN 5 MG TABLET PO ×2 (08:11→20:07)
[2022-11-04] MEDS: CHOLESTYRAMINE POWDER 4 GM PO ×2 (08:11→17:31)
[2022-11-04] MEDS: FERROUS SULFATE 325 MG TABLET PO (08:11)
[2022-11-04] MEDS: METOPROLOL TARTRATE 100 MG TABLET 50 MG PO ×2 (08:12→16:09)
[2022-11-04] MEDS: LORATADINE 10 MG TABLET PO (08:12)
[2022-11-04] MEDS: FUROSEMIDE 40 MG TABLET 20 MG PO (08:12)
[2022-11-04] MEDS: LACTOBACILLUS ACIDOPHILUS 1 TABLET 1 TAB PO ×3 (08:12→16:43)
[2022-11-04] MEDS: POTASSIUM CHLORIDE 10 MEQ CAPSULE ER PO (08:12)
[2022-11-04] MEDS: LOPERAMIDE HCL 2 MG CAPSULE PO (08:13)
[2022-11-04] MEDS: SPIRONOLACTONE 25 MG TABLET PO (08:13)
[2022-11-04] MEDS: SERTRALINE 50 MG TABLET PO (08:13)
[2022-11-04 08:19] VITALS: PULSE 68
[2022-11-04] MEDS: DIGOXIN 250 MCG TABLET PO (08:19)
[2022-11-04 08:21] VITALS: BP 124/75; PULSE 68; RESP 16; TEMP 36.7; O2SAT 99
--- NOTE | 2022-11-04 11:26 | PC.NURSE ---
Met with resident yesterday to work on discharge planning. Reviewed current medications and discussed purpose for each medication. She is interested in stopping Lasix, potassium, scheduled loperamide, and iron supplement. Discussed these with UTILITY SYSTEM REPAIRER/Yari who will have labs drawn to see if patient has improved iron levels and can discontinue requested medications. This newswriter informed resident that she will not be followed by [facility] provider since she is returning to independent living apartment. She requests to be scheduled with Elvi Cai at [facility] for new primary care provider. This newswriter called and scheduled appointment with Dr. Cai on November 19 at 10:00am. This newswriter will inform resident of appointment when nearing discharge.
--- NOTE | 2022-11-04 12:02 | PC.NURSE ---
Behavior note: Resident has refused bath/shower today and to have weight obtained despite being approached and encouraged multiple times.
[2022-11-04 12:06] VITALS: O2SAT 99
[2022-11-04] MEDS: MELATONIN 3 MG TABLET 6 MG PO (20:07)
[2022-11-04] MEDS: ACETAMINOPHEN 325 MG TABLET 975 MG PO (22:43)
[2022-11-05 07:37] VITALS: PULSE 72
[2022-11-05] MEDS: LACTOBACILLUS ACIDOPHILUS 1 TABLET 1 TAB PO ×3 (07:37→17:04)
[2022-11-05] MEDS: METOPROLOL TARTRATE 100 MG TABLET 50 MG PO ×2 (07:37→17:03)
[2022-11-05] MEDS: APIXABAN 5 MG TABLET PO ×2 (07:37→19:59)
[2022-11-05] MEDS: LORATADINE 10 MG TABLET PO (07:37)
[2022-11-05] MEDS: SERTRALINE 50 MG TABLET PO (07:37)
[2022-11-05] MEDS: FUROSEMIDE 40 MG TABLET 20 MG PO (07:37)
[2022-11-05] MEDS: DIGOXIN 250 MCG TABLET PO (07:37)
[2022-11-05] MEDS: FERROUS SULFATE 325 MG TABLET PO (07:37)
[2022-11-05] MEDS: CHOLESTYRAMINE POWDER 4 GM PO ×2 (07:37→17:04)
[2022-11-05] MEDS: SPIRONOLACTONE 25 MG TABLET PO (07:37)
[2022-11-05] MEDS: POTASSIUM CHLORIDE 10 MEQ CAPSULE ER PO (07:37)
[2022-11-05] MEDS: LOPERAMIDE HCL 2 MG CAPSULE PO (08:09)
--- NOTE | 2022-11-05 09:52 | PC.NURSE ---
Outing: Resident left for home evaluation
--- NOTE | 2022-11-05 10:03 | PC.NURSE ---
I met with resident and she agreed she did not want her SCD's when she goes home but does want her BiPap for use at home. I contacted [facility] who stated she would require a face sheet with her phone number submitted to them as well as a provider order for the BiPap with settings, recent sat's, sleep study of any date completed, recent provider note with in 6 months indicating need for Bipap then it is submitted to insurance for verification. I contacted Rina ROA and she indicated resident would require an in-lab sleep study be completed for a BiPap and a [id number] with provider and provider order for the sleep study. Once completed all documentation to be faxed to Intake at [facility] at [phone].
--- NOTE | 2022-11-05 11:01 | PC.SPIRITC ---
Lucila talked about being in the hospital and now [facility] going on nine months. I provided time to process the experience she has had along with reflecting how far things have progressed.
--- NOTE | 2022-11-05 11:50 | PC.NURSE ---
Return: back from home OT evaluation with therapist.
[2022-11-05 12:44] VITALS: O2SAT 98
[2022-11-05] MEDS: MELATONIN 3 MG TABLET 6 MG PO (19:59)
[2022-11-05] MEDS: ACETAMINOPHEN 325 MG TABLET 975 MG PO (21:48)
[2022-11-05 23:00] VITALS: O2SAT 98
[2022-11-06] MEDS: CHOLESTYRAMINE POWDER 4 GM PO ×2 (08:46→17:09)
[2022-11-06 08:47] VITALS: PULSE 72
[2022-11-06] MEDS: POTASSIUM CHLORIDE 10 MEQ CAPSULE ER PO (08:47)
[2022-11-06] MEDS: FUROSEMIDE 40 MG TABLET 20 MG PO (08:47)
[2022-11-06] MEDS: FERROUS SULFATE 325 MG TABLET PO (08:47)
[2022-11-06] MEDS: METOPROLOL TARTRATE 100 MG TABLET 50 MG PO ×2 (08:47→15:49)
[2022-11-06] MEDS: DIGOXIN 250 MCG TABLET PO (08:47)
[2022-11-06] MEDS: APIXABAN 5 MG TABLET PO ×2 (08:47→19:48)
[2022-11-06] MEDS: LORATADINE 10 MG TABLET PO (08:47)
[2022-11-06] MEDS: SPIRONOLACTONE 25 MG TABLET PO (08:48)
[2022-11-06] MEDS: LACTOBACILLUS ACIDOPHILUS 1 TABLET 1 TAB PO ×3 (08:48→17:09)
[2022-11-06] MEDS: LOPERAMIDE HCL 2 MG CAPSULE PO (08:48)
[2022-11-06] MEDS: SERTRALINE 50 MG TABLET PO (08:48)
[2022-11-06 10:22] VITALS: O2SAT 99
--- NOTE | 2022-11-06 12:40 | PC.NURSE ---
Seen by Dr Martinez. Ordered 1. D/C Ferrous Sulphate 2. D/C Potassium Chloride 3. PT to evaluate and treat for weakness gait disturbance 4. to arrange a bedside sleep study to evaluate for KEVEN
[2022-11-06] MEDS: MELATONIN 3 MG TABLET 6 MG PO (19:48)
[2022-11-06] MEDS: ACETAMINOPHEN 325 MG TABLET 975 MG PO (20:44)
[2022-11-06 23:00] VITALS: O2SAT 98
[2022-11-07 07:00] VITALS: O2SAT 98
[2022-11-07] MEDS: APIXABAN 5 MG TABLET PO ×2 (07:10→19:49)
[2022-11-07] MEDS: FUROSEMIDE 40 MG TABLET 20 MG PO (07:10)
[2022-11-07] MEDS: CHOLESTYRAMINE POWDER 4 GM PO ×2 (07:10→17:08)
[2022-11-07] MEDS: LORATADINE 10 MG TABLET PO (07:11)
[2022-11-07] MEDS: METOPROLOL TARTRATE 100 MG TABLET 50 MG PO ×2 (07:11→16:55)
[2022-11-07] MEDS: LACTOBACILLUS ACIDOPHILUS 1 TABLET 1 TAB PO ×3 (07:12→16:55)
[2022-11-07] MEDS: SERTRALINE 50 MG TABLET PO (07:12)
[2022-11-07] MEDS: SPIRONOLACTONE 25 MG TABLET PO (07:12)
[2022-11-07] MEDS: DIGOXIN 250 MCG TABLET PO (11:02)
[2022-11-07] MEDS: LOPERAMIDE HCL 2 MG CAPSULE PO (11:03)
[2022-11-07 15:00] VITALS: O2SAT 100
[2022-11-07] MEDS: MELATONIN 3 MG TABLET 6 MG PO (19:49)
[2022-11-07 22:16] VITALS: TEMP 36.7
[2022-11-07] MEDS: ACETAMINOPHEN 325 MG TABLET 975 MG PO (22:16)
[2022-11-07 23:00] VITALS: O2SAT 100
[2022-11-08] MEDS: APIXABAN 5 MG TABLET PO ×2 (08:05→19:10)
[2022-11-08] MEDS: CHOLESTYRAMINE POWDER 4 GM PO ×2 (08:05→18:03)
[2022-11-08] MEDS: LACTOBACILLUS ACIDOPHILUS 1 TABLET 1 TAB PO ×3 (08:06→18:03)
[2022-11-08] MEDS: FUROSEMIDE 40 MG TABLET 20 MG PO (08:06)
[2022-11-08] MEDS: METOPROLOL TARTRATE 100 MG TABLET 50 MG PO ×2 (08:06→16:13)
[2022-11-08] MEDS: SERTRALINE 50 MG TABLET PO (08:06)
[2022-11-08] MEDS: LORATADINE 10 MG TABLET PO (08:06)
[2022-11-08] MEDS: SPIRONOLACTONE 25 MG TABLET PO (08:06)
[2022-11-08] MEDS: LOPERAMIDE HCL 2 MG CAPSULE PO (08:07)
[2022-11-08 08:47] VITALS: PULSE 66
[2022-11-08] MEDS: DIGOXIN 250 MCG TABLET PO (08:47)
[2022-11-08 08:48] VITALS: O2SAT 97
[2022-11-08 15:00] VITALS: O2SAT 98
[2022-11-08] MEDS: MELATONIN 3 MG TABLET 6 MG PO (19:10)
[2022-11-08 22:17] VITALS: TEMP 36.6
[2022-11-08] MEDS: ACETAMINOPHEN 325 MG TABLET 975 MG PO ×2 (22:17→23:38)
[2022-11-08 23:00] VITALS: O2SAT 99
[2022-11-09] MEDS: APIXABAN 5 MG TABLET PO ×2 (08:14→21:15)
[2022-11-09] MEDS: CHOLESTYRAMINE POWDER 4 GM PO ×2 (08:14→17:31)
[2022-11-09 08:15] VITALS: PULSE 68
[2022-11-09] MEDS: LOPERAMIDE HCL 2 MG CAPSULE PO (08:15)
[2022-11-09] MEDS: SPIRONOLACTONE 25 MG TABLET PO (08:15)
[2022-11-09] MEDS: SERTRALINE 50 MG TABLET PO (08:15)
[2022-11-09] MEDS: DIGOXIN 250 MCG TABLET PO (08:15)
[2022-11-09] MEDS: FUROSEMIDE 40 MG TABLET 20 MG PO (08:15)
[2022-11-09] MEDS: LORATADINE 10 MG TABLET PO (08:15)
[2022-11-09] MEDS: METOPROLOL TARTRATE 100 MG TABLET 50 MG PO ×2 (08:15→15:32)
[2022-11-09] MEDS: LACTOBACILLUS ACIDOPHILUS 1 TABLET 1 TAB PO ×3 (08:15→16:29)
[2022-11-09 08:21] VITALS: O2SAT 98
--- NOTE | 2022-11-09 11:03 | PC.NURSE ---
Resident's discharge plan is to go home with HomeCare services, PT/OT and a BiPap. I called [facility] and they stated the requirements for a home BiPap unit included recent O2 Sat's and a sleep study. Charge nurse contacted the sleep study center and they said they needed a provider order and she would be required to be independent with toileting. Currently, resident is requesting staff to do sepideh-cares and assist with her pullup every morning. Last Wednesday, we discussed the need for a sleep study with and he stated he can not order an in-lab sleep study, she would need to be seen by Dr. Nolan or Dr. Avitia. Norm's booked until next month and Adore is booked until January. The sleep study is booked until December 09. Met with respiratory therapist Shashi and he stated she requires the BiPap, she failed using the CPAP while in the hospital. If she does not use her BiPap she will decline. Will discuss at IDT and at her PCC this afternoon the best option would be to go to a care center until she can be seen by Norm or Adore and have a sleep study completed.
--- NOTE | 2022-11-09 13:28 | PC.SOCIAL ---
Care Conference held today for resident in resident's room at 1:00 pm to discuss discharge plans. Resident was informed that she would need to get a sleep study completed to go home with her Bi-pap and the sleep study appointments are extended out past [facility] closure date. Nursing proposed that resident transition to [facility] until the sleep study could be completed, so resident could safely discharge home. Resident refused and informs that she would like to plan to move home on November 23. Resident is not refusing doing the sleep study, however, she would like to complete it by outpatient and traveling from her own home. Resident was informed that this is not safe nor recommended. Resident is open to meeting with MD or Respiratory therapy to understand the risks she is taking, however, has made her decision to go home. Resident is willing to complete all services in home that are recommended such as home care for nursing, PT, and OT. Resident will reach out to her nurse outreach case manager to see when the EW assessment will be completed. Social work will follow up as needed.
--- NOTE | 2022-11-09 13:46 | PC.NURSE ---
Care conference held with DYLAN CALDWELL Sara-SW, Life Enrichment Coordinator, Esme SALAS and student to discuss discharge plans. I shared she will need a sleep study and be seen by Dr. Avitia or Dr. Zheng prior to study and to obtain an order for the sleep study. The appointment and the sleep study will not be completed for at least a month and we recommend she go to a care center with a BiPAP until her appointments. She refused to go to another care center siting she does not want to go to a shared room and does not feel it is necessary, she is ready to go home. I discussed the risks of not using her BiPap and the respiratory therapists comments that she could decline and be life threatening. She understood and is willing to go home without her Bipap. She does agree to see and have the sleep study completed after discharge. I will request WEB MERCHANT to see resident tomorrow and share the risks of not using the Bipap so she can make an informed decision and to get a referral to be seen by Norm. OT shared the results of her home safety eval. Resident will take the wheelchair she is currently using home and has ordered herself a walker. Resident declined self administration of meds, she feels this will not be difficult when she returns home. Emily has requested a discharge date of November 23 and she will contact her caser shoe parts. Client Customer Manager will meet with her about her dietary needs at home, she is looking forward to cooking for herself.
[2022-11-09 15:00] VITALS: O2SAT 98
[2022-11-09 21:15] VITALS: TEMP 36.6
[2022-11-09] MEDS: MELATONIN 3 MG TABLET 6 MG PO (21:15)
[2022-11-09] MEDS: ACETAMINOPHEN 325 MG TABLET 975 MG PO (21:15)
[2022-11-09 22:12] VITALS: TEMP 36.6
[2022-11-09 23:00] VITALS: O2SAT 98
[2022-11-10 07:00] VITALS: O2SAT 99
[2022-11-10] MEDS: APIXABAN 5 MG TABLET PO ×2 (08:20→19:25)
[2022-11-10] MEDS: CHOLESTYRAMINE POWDER 4 GM PO ×2 (08:20→17:02)
[2022-11-10] MEDS: FUROSEMIDE 40 MG TABLET 20 MG PO (08:20)
[2022-11-10] MEDS: METOPROLOL TARTRATE 100 MG TABLET 50 MG PO ×2 (08:20→15:54)
[2022-11-10] MEDS: SPIRONOLACTONE 25 MG TABLET PO (08:21)
[2022-11-10] MEDS: LACTOBACILLUS ACIDOPHILUS 1 TABLET 1 TAB PO ×3 (08:21→17:02)
[2022-11-10] MEDS: LORATADINE 10 MG TABLET PO (08:21)
[2022-11-10] MEDS: SERTRALINE 50 MG TABLET PO (08:21)
[2022-11-10] MEDS: LOPERAMIDE HCL 2 MG CAPSULE PO (08:22)
[2022-11-10 08:42] VITALS: PULSE 68
[2022-11-10] MEDS: DIGOXIN 250 MCG TABLET PO (08:42)
--- NOTE | 2022-11-10 10:57 | PC.SPIRITC ---
Per Emily she is weary about the latest development regarding going home and trying to decide her next course of action within the choices she has. I provided time to process situation, support, and encouragement.
[2022-11-10 13:12] VITALS: BMI 44.9
[2022-11-10 15:00] VITALS: O2SAT 97
--- NOTE | 2022-11-10 15:36 | PC.SOCIAL ---
Sent an e-mail to Oneyda Hartley ([facility], [email or web address]) providing an update on care conference and anticipated discharge date of 11/23. Received an e-mail back from Essence Au ([facility], [email or web address]) informing that Oneyda Hartley assigned her to be the casework manager that completes resident's return to the community assessment. Essence will reach out to resident to set an appointment time prior to discharge from LT[facility]. Provided Essence with an update on PCP and sleep study. Essence will keep this worker updated on when the appointment is scheduled. Essence's phone number is [phone]. Social work will follow up as needed.
[2022-11-10] MEDS: MELATONIN 3 MG TABLET 6 MG PO (19:25)
[2022-11-10] MEDS: ACETAMINOPHEN 325 MG TABLET 975 MG PO (21:05)
[2022-11-11 08:35] VITALS: PULSE 85
[2022-11-11] MEDS: LACTOBACILLUS ACIDOPHILUS 1 TABLET 1 TAB PO ×3 (08:35→16:32)
[2022-11-11] MEDS: SERTRALINE 50 MG TABLET PO (08:35)
[2022-11-11] MEDS: LORATADINE 10 MG TABLET PO (08:35)
[2022-11-11] MEDS: CHOLESTYRAMINE POWDER 4 GM PO ×2 (08:35→20:08)
[2022-11-11] MEDS: SPIRONOLACTONE 25 MG TABLET PO (08:35)
[2022-11-11] MEDS: METOPROLOL TARTRATE 100 MG TABLET 50 MG PO ×2 (08:35→16:32)
[2022-11-11] MEDS: LOPERAMIDE HCL 2 MG CAPSULE PO (08:35)
[2022-11-11] MEDS: APIXABAN 5 MG TABLET PO ×2 (08:35→20:08)
[2022-11-11] MEDS: DIGOXIN 250 MCG TABLET PO (08:35)
[2022-11-11] MEDS: FUROSEMIDE 40 MG TABLET 20 MG PO (08:35)
--- NOTE | 2022-11-11 10:18 | PC.NURSE ---
Appointment: Resident went to see Dr. Da Silva in w/c with staffs.
--- NOTE | 2022-11-11 10:50 | PC.NURSE ---
Return: Back from doctor's appointment.
[2022-11-11 13:12] VITALS: O2SAT 98
--- NOTE | 2022-11-11 14:28 | PC.SPIRITC ---
Emily expressed having a much better day today than yesterday due to progress with medical appointment. I provided encouragement and support.
[2022-11-11 15:00] VITALS: O2SAT 98
[2022-11-11] MEDS: MELATONIN 3 MG TABLET 6 MG PO (20:08)
[2022-11-11] MEDS: ACETAMINOPHEN 325 MG TABLET 975 MG PO (22:13)
[2022-11-11 23:00] VITALS: O2SAT 97
[2022-11-12 07:00] VITALS: O2SAT 98
[2022-11-12] MEDS: CHOLESTYRAMINE POWDER 4 GM PO ×2 (08:55→17:05)
[2022-11-12 08:56] VITALS: PULSE 78
[2022-11-12] MEDS: LACTOBACILLUS ACIDOPHILUS 1 TABLET 1 TAB PO ×3 (08:56→17:05)
[2022-11-12] MEDS: LORATADINE 10 MG TABLET PO (08:56)
[2022-11-12] MEDS: FUROSEMIDE 40 MG TABLET 20 MG PO (08:56)
[2022-11-12] MEDS: APIXABAN 5 MG TABLET PO ×2 (08:56→20:12)
[2022-11-12] MEDS: METOPROLOL TARTRATE 100 MG TABLET 50 MG PO ×2 (08:56→16:04)
[2022-11-12] MEDS: DIGOXIN 250 MCG TABLET PO (08:56)
[2022-11-12] MEDS: SPIRONOLACTONE 25 MG TABLET PO (08:57)
[2022-11-12] MEDS: LOPERAMIDE HCL 2 MG CAPSULE PO (08:57)
[2022-11-12] MEDS: SERTRALINE 50 MG TABLET PO (08:57)
[2022-11-12 12:06] VITALS: TEMP 36.5
[2022-11-12 13:09] VITALS: BP 118/72; PULSE 78; RESP 18; TEMP 36.2; O2SAT 98
[2022-11-12] MEDS: MELATONIN 3 MG TABLET 6 MG PO (20:12)
[2022-11-12] MEDS: ACETAMINOPHEN 325 MG TABLET 975 MG PO (20:50)
[2022-11-12 23:00] VITALS: O2SAT 98
[2022-11-13 08:20] VITALS: PULSE 70
[2022-11-13] MEDS: CHOLESTYRAMINE POWDER 4 GM PO ×2 (08:20→17:02)
[2022-11-13] MEDS: APIXABAN 5 MG TABLET PO ×2 (08:20→20:01)
[2022-11-13] MEDS: DIGOXIN 250 MCG TABLET PO (08:20)
[2022-11-13] MEDS: LACTOBACILLUS ACIDOPHILUS 1 TABLET 1 TAB PO ×3 (08:21→17:02)
[2022-11-13] MEDS: LORATADINE 10 MG TABLET PO (08:21)
[2022-11-13] MEDS: METOPROLOL TARTRATE 100 MG TABLET 50 MG PO ×2 (08:21→17:02)
[2022-11-13] MEDS: FUROSEMIDE 40 MG TABLET 20 MG PO (08:21)
[2022-11-13] MEDS: LOPERAMIDE HCL 2 MG CAPSULE PO (08:22)
[2022-11-13] MEDS: SPIRONOLACTONE 25 MG TABLET PO (08:22)
[2022-11-13] MEDS: SERTRALINE 50 MG TABLET PO (08:22)
[2022-11-13 10:13] VITALS: O2SAT 98
[2022-11-13 15:00] VITALS: O2SAT 96
[2022-11-13] MEDS: MELATONIN 3 MG TABLET 6 MG PO (20:02)
[2022-11-13] MEDS: ACETAMINOPHEN 325 MG TABLET 975 MG PO (21:31)
[2022-11-14 07:00] VITALS: O2SAT 95
[2022-11-14 08:20] VITALS: PULSE 70
[2022-11-14] MEDS: DIGOXIN 250 MCG TABLET PO (08:20)
[2022-11-14] MEDS: CHOLESTYRAMINE POWDER 4 GM PO ×2 (08:22→17:02)
[2022-11-14] MEDS: FUROSEMIDE 40 MG TABLET 20 MG PO (08:22)
[2022-11-14] MEDS: APIXABAN 5 MG TABLET PO ×2 (08:22→20:02)
[2022-11-14] MEDS: METOPROLOL TARTRATE 100 MG TABLET 50 MG PO ×2 (08:23→17:02)
[2022-11-14] MEDS: LORATADINE 10 MG TABLET PO (08:23)
[2022-11-14] MEDS: LACTOBACILLUS ACIDOPHILUS 1 TABLET 1 TAB PO ×3 (08:23→17:02)
[2022-11-14] MEDS: SERTRALINE 50 MG TABLET PO (08:23)
[2022-11-14] MEDS: LOPERAMIDE HCL 2 MG CAPSULE PO (08:23)
[2022-11-14] MEDS: SPIRONOLACTONE 25 MG TABLET PO (08:23)
[2022-11-14 15:00] VITALS: O2SAT 96
[2022-11-14] MEDS: MELATONIN 3 MG TABLET 6 MG PO (20:02)
[2022-11-14] MEDS: ACETAMINOPHEN 325 MG TABLET 975 MG PO (22:33)
[2022-11-14 23:00] VITALS: O2SAT 98
[2022-11-15 07:00] VITALS: O2SAT 98
[2022-11-15] MEDS: APIXABAN 5 MG TABLET PO ×2 (08:04→20:00)
[2022-11-15] MEDS: CHOLESTYRAMINE POWDER 4 GM PO ×2 (08:04→17:10)
[2022-11-15] MEDS: DIGOXIN 250 MCG TABLET PO (08:04)
[2022-11-15] MEDS: FUROSEMIDE 40 MG TABLET 20 MG PO (08:04)
[2022-11-15] MEDS: METOPROLOL TARTRATE 100 MG TABLET 50 MG PO ×2 (08:04→17:09)
[2022-11-15] MEDS: SPIRONOLACTONE 25 MG TABLET PO (08:05)
[2022-11-15] MEDS: LACTOBACILLUS ACIDOPHILUS 1 TABLET 1 TAB PO ×3 (08:05→17:10)
[2022-11-15] MEDS: LOPERAMIDE HCL 2 MG CAPSULE PO (08:05)
[2022-11-15] MEDS: LORATADINE 10 MG TABLET PO (08:05)
[2022-11-15] MEDS: SERTRALINE 50 MG TABLET PO (08:05)
[2022-11-15 15:00] VITALS: O2SAT 95
[2022-11-15] MEDS: MELATONIN 3 MG TABLET 6 MG PO (20:00)
[2022-11-16 07:00] VITALS: O2SAT 95
[2022-11-16] MEDS: APIXABAN 5 MG TABLET PO ×2 (09:05→19:24)
[2022-11-16] MEDS: CHOLESTYRAMINE POWDER 4 GM PO ×2 (09:05→17:15)
[2022-11-16] MEDS: SPIRONOLACTONE 25 MG TABLET PO (09:06)
[2022-11-16] MEDS: SERTRALINE 50 MG TABLET PO (09:06)
[2022-11-16] MEDS: LACTOBACILLUS ACIDOPHILUS 1 TABLET 1 TAB PO ×3 (09:06→17:15)
[2022-11-16] MEDS: LORATADINE 10 MG TABLET PO (09:06)
[2022-11-16] MEDS: METOPROLOL TARTRATE 100 MG TABLET 50 MG PO ×2 (09:06→16:09)
[2022-11-16] MEDS: FUROSEMIDE 40 MG TABLET 20 MG PO (09:06)
[2022-11-16 09:17] VITALS: PULSE 84
[2022-11-16] MEDS: DIGOXIN 250 MCG TABLET PO (09:17)
[2022-11-16] MEDS: LOPERAMIDE HCL 2 MG CAPSULE PO (09:18)
[2022-11-16 15:00] VITALS: O2SAT 98
[2022-11-16] MEDS: MELATONIN 3 MG TABLET 6 MG PO (19:24)
[2022-11-16] MEDS: ACETAMINOPHEN 325 MG TABLET 975 MG PO (21:54)
[2022-11-16 23:00] VITALS: O2SAT 96
[2022-11-17] MEDS: CHOLESTYRAMINE POWDER 4 GM PO ×2 (08:22→17:38)
[2022-11-17] MEDS: APIXABAN 5 MG TABLET PO ×2 (08:22→22:28)
[2022-11-17] MEDS: SERTRALINE 50 MG TABLET PO (08:23)
[2022-11-17] MEDS: LACTOBACILLUS ACIDOPHILUS 1 TABLET 1 TAB PO ×3 (08:23→17:38)
[2022-11-17] MEDS: LOPERAMIDE HCL 2 MG CAPSULE PO (08:23)
[2022-11-17] MEDS: FUROSEMIDE 40 MG TABLET 20 MG PO (08:23)
[2022-11-17] MEDS: SPIRONOLACTONE 25 MG TABLET PO (08:23)
[2022-11-17] MEDS: LORATADINE 10 MG TABLET PO (08:23)
[2022-11-17] MEDS: METOPROLOL TARTRATE 100 MG TABLET 50 MG PO ×2 (08:23→16:25)
[2022-11-17 09:26] VITALS: PULSE 74
[2022-11-17] MEDS: DIGOXIN 250 MCG TABLET PO (09:26)
[2022-11-17 10:39] VITALS: O2SAT 95
--- NOTE | 2022-11-17 14:00 | PC.SOCIAL ---
Met with resident today to discuss discharge plans. Resident would like to discharge on 11/23 at 2:00 pm. Resident will not be taking any large furniture. This worker was informed by [facility] worker (Essence Cameron) that she will be coming to [facility] to complete resident's return to the community assessment on at 1:00 pm. Resident is aware of this appointment. Informed resident that she should discuss meals on wheels and life alert during this appointment as the services are covered under the waiver. Resident states that she wants to order and cook her own food. This worker encouraged resident to discuss meals with her [facility] worker. This worker informed Travis Senioran ([facility] lodging facilities attendant) that resident will be discharging on 11/23 and needs transportation home. Informed resident that [facility] will assist with her move. Nursing will follow up with [facility] to provide date of discharge. Resident will complete her sleep study in lab on Saturday 11/18 and nursing will order needed home equipment. Resident will see her PCP (Dr. Cai) on at 10:00 am to establish care. Nothing further is needed at this time from social work. Social work informed resident that this worker will check in at the end of the week, after resident's meeting with the [facility] to follow up on any additional questions resident may have.
[2022-11-17 15:00] VITALS: O2SAT 97
[2022-11-17 22:28] VITALS: TEMP 36.6
[2022-11-17] MEDS: MELATONIN 3 MG TABLET 6 MG PO (22:28)
[2022-11-17] MEDS: ACETAMINOPHEN 325 MG TABLET 975 MG PO (22:28)
[2022-11-17 23:00] VITALS: O2SAT 97
[2022-11-18 08:53] VITALS: PULSE 68
[2022-11-18] MEDS: CHOLESTYRAMINE POWDER 4 GM PO ×2 (08:53→17:56)
[2022-11-18] MEDS: LACTOBACILLUS ACIDOPHILUS 1 TABLET 1 TAB PO ×3 (08:53→17:56)
[2022-11-18] MEDS: FUROSEMIDE 40 MG TABLET 20 MG PO (08:53)
[2022-11-18] MEDS: APIXABAN 5 MG TABLET PO ×2 (08:53→20:40)
[2022-11-18] MEDS: LORATADINE 10 MG TABLET PO (08:53)
[2022-11-18] MEDS: SPIRONOLACTONE 25 MG TABLET PO (08:53)
[2022-11-18] MEDS: SERTRALINE 50 MG TABLET PO (08:53)
[2022-11-18] MEDS: LOPERAMIDE HCL 2 MG CAPSULE PO (08:53)
[2022-11-18] MEDS: METOPROLOL TARTRATE 100 MG TABLET 50 MG PO ×2 (08:53→15:45)
[2022-11-18] MEDS: DIGOXIN 250 MCG TABLET PO (08:53)
--- NOTE | 2022-11-18 09:40 | PC.SPIRITC ---
I provided time to reflect on [facility] stay. Emily expressed excitement about going home.
--- NOTE | 2022-11-18 09:53 | PC.SPIRITC ---
I provided written note of support for
--- NOTE | 2022-11-18 10:21 | NUTR.NU ---
RDN met with resident to discuss meal planning and nutrition for when at home. Resident reports planning on ordering groceries through [email or web address] and to cook meals in her kitchen. Resident is able to cook in her kitchen per OT. Resident was encouraged by dialysis social worker (Ita) to discuss meals on wheels with [facility] Worker. RDN also encouraged resident to attain resources. Resident to continue with double protein portions at meals as she desires. RDN provided education on general healthful nutrition. Discussed eating a variety of fruits and vegetables, choosing whole grains for at least half grain servings, healthy fats, lean protein sources, and to limit salt and sugar intake. Also discussed using the plate method that includes ? plate non-starchy vegetables and fruit, ? plate whole grains/starch, ? plate healthy protein (fish, poultry, legumes, nuts/seeds), and healthy fats. RDN reviewed meal planning, sample grocery list per food group, steps to meal plan a balanced meal, meal ideas for breakfast, lunch, and supper, and tips for meal-planning success. Also reviewed storage tips for fresh produce. Handouts provided to support discussion. Questions were answered and appropriate. Resident verbalized understanding. Resident has no concerns regarding cooking and ordering her own food at home. Resident will attain resources regarding meals from [facility] Worker for her reference if needed. RDN contact information provided and encouraged resident to call with questions. RDN to follow up as needed.
[2022-11-18 11:40] VITALS: O2SAT 96
[2022-11-18 13:08] VITALS: BP 120/75; PULSE 69; RESP 18; TEMP 36.3; O2SAT 100
[2022-11-18 15:00] VITALS: O2SAT 96
[2022-11-18] MEDS: ACETAMINOPHEN 325 MG TABLET 975 MG PO (20:40)
[2022-11-18] MEDS: MELATONIN 3 MG TABLET 6 MG PO (20:40)
--- NOTE | 2022-11-18 20:44 | PC.NURSE ---
Sleep Study: Resident decided not to take her bath/shower this evening and will take tomorrow morning after returning from the sleep study. She was taken via wheelchair to the ED desk to be registered for the procedure. Her walker was also taken to allow her to walk to the bathroom while doing the sleep study. Her 8pm medications along with her prn Tylenol was sent with her to be taken closer to when the study began per residents request. The evening GIORGIO is sitting with her in the ED waiting room until the overnight GIORGIO arrives to take over.
[2022-11-19] MEDS: CHOLESTYRAMINE POWDER 4 GM PO ×2 (08:13→17:09)
[2022-11-19] MEDS: LACTOBACILLUS ACIDOPHILUS 1 TABLET 1 TAB PO ×3 (08:14→17:09)
[2022-11-19] MEDS: METOPROLOL TARTRATE 100 MG TABLET 50 MG PO ×2 (08:14→16:22)
[2022-11-19] MEDS: FUROSEMIDE 40 MG TABLET 20 MG PO (08:14)
[2022-11-19] MEDS: LORATADINE 10 MG TABLET PO (08:14)
[2022-11-19] MEDS: APIXABAN 5 MG TABLET PO ×2 (08:14→20:03)
[2022-11-19] MEDS: DIGOXIN 250 MCG TABLET PO (08:14)
[2022-11-19] MEDS: LOPERAMIDE HCL 2 MG CAPSULE PO (08:15)
[2022-11-19] MEDS: SERTRALINE 50 MG TABLET PO (08:15)
[2022-11-19] MEDS: SPIRONOLACTONE 25 MG TABLET PO (08:15)
[2022-11-19 08:56] VITALS: O2SAT 98
--- NOTE | 2022-11-19 11:05 | PC.NURSE ---
Dr Appointment: Resident returned from Dr Appointment with Dr Cai. Resident received flu shot there and needs to be seen in 2 months.
[2022-11-19 15:00] VITALS: O2SAT 98
[2022-11-19] MEDS: MELATONIN 3 MG TABLET 6 MG PO (20:03)
[2022-11-20 07:00] VITALS: O2SAT 98
[2022-11-20] MEDS: FUROSEMIDE 40 MG TABLET 20 MG PO (08:40)
[2022-11-20] MEDS: SPIRONOLACTONE 25 MG TABLET PO (08:40)
[2022-11-20] MEDS: LACTOBACILLUS ACIDOPHILUS 1 TABLET 1 TAB PO ×3 (08:40→17:09)
[2022-11-20] MEDS: CHOLESTYRAMINE POWDER 4 GM PO ×2 (08:40→17:09)
[2022-11-20] MEDS: APIXABAN 5 MG TABLET PO ×2 (08:40→19:24)
[2022-11-20] MEDS: METOPROLOL TARTRATE 100 MG TABLET 50 MG PO ×2 (08:40→17:09)
[2022-11-20] MEDS: LORATADINE 10 MG TABLET PO (08:40)
[2022-11-20] MEDS: SERTRALINE 50 MG TABLET PO (08:41)
[2022-11-20] MEDS: LOPERAMIDE HCL 2 MG CAPSULE PO (09:32)
[2022-11-20 10:31] VITALS: PULSE 75
[2022-11-20] MEDS: DIGOXIN 250 MCG TABLET PO (10:31)
--- NOTE | 2022-11-20 12:05 | PC.NURSE ---
Resident was independent of most of her ADLs. Attended by PT at 1130. Applied ice pack on her abdomen as non-medication intervention.Had lunch 100%.Haven't decided when she wants to have her bath, will let staff know.
[2022-11-20] MEDS: MELATONIN 3 MG TABLET 6 MG PO (19:24)
[2022-11-20] MEDS: ACETAMINOPHEN 325 MG TABLET 975 MG PO (21:15)
[2022-11-20 23:00] VITALS: O2SAT 96
[2022-11-21] MEDS: CHOLESTYRAMINE POWDER 4 GM PO ×2 (08:41→17:07)
[2022-11-21] MEDS: APIXABAN 5 MG TABLET PO ×2 (08:42→19:24)
[2022-11-21] MEDS: FUROSEMIDE 40 MG TABLET 20 MG PO (08:42)
[2022-11-21] MEDS: METOPROLOL TARTRATE 100 MG TABLET 50 MG PO ×2 (08:42→16:41)
[2022-11-21] MEDS: LORATADINE 10 MG TABLET PO (08:42)
[2022-11-21] MEDS: LACTOBACILLUS ACIDOPHILUS 1 TABLET 1 TAB PO ×3 (08:43→17:07)
[2022-11-21] MEDS: SERTRALINE 50 MG TABLET PO (08:43)
[2022-11-21] MEDS: SPIRONOLACTONE 25 MG TABLET PO (08:43)
[2022-11-21] MEDS: LOPERAMIDE HCL 2 MG CAPSULE PO (08:43)
[2022-11-21 08:50] VITALS: PULSE 67
[2022-11-21] MEDS: DIGOXIN 250 MCG TABLET PO (08:50)
[2022-11-21 08:51] VITALS: O2SAT 99
[2022-11-21] MEDS: MELATONIN 3 MG TABLET 6 MG PO (19:24)
[2022-11-21] MEDS: ACETAMINOPHEN 325 MG TABLET 975 MG PO (21:10)
[2022-11-21 23:00] VITALS: O2SAT 97
[2022-11-22] MEDS: FUROSEMIDE 40 MG TABLET 20 MG PO (08:40)
[2022-11-22] MEDS: METOPROLOL TARTRATE 100 MG TABLET 50 MG PO ×2 (08:40→16:13)
[2022-11-22] MEDS: LORATADINE 10 MG TABLET PO (08:40)
[2022-11-22] MEDS: CHOLESTYRAMINE POWDER 4 GM PO ×2 (08:40→17:11)
[2022-11-22] MEDS: APIXABAN 5 MG TABLET PO ×2 (08:40→19:36)
[2022-11-22] MEDS: LOPERAMIDE HCL 2 MG CAPSULE PO (08:41)
[2022-11-22] MEDS: LACTOBACILLUS ACIDOPHILUS 1 TABLET 1 TAB PO ×3 (08:41→17:11)
[2022-11-22] MEDS: SPIRONOLACTONE 25 MG TABLET PO (08:41)
[2022-11-22] MEDS: SERTRALINE 50 MG TABLET PO (08:41)
[2022-11-22 08:47] VITALS: PULSE 67
[2022-11-22] MEDS: DIGOXIN 250 MCG TABLET PO (08:47)
[2022-11-22 08:48] VITALS: O2SAT 100
[2022-11-22] MEDS: MELATONIN 3 MG TABLET 6 MG PO (19:36)
[2022-11-22] MEDS: ACETAMINOPHEN 325 MG TABLET 975 MG PO (21:48)
[2022-11-22 23:00] VITALS: O2SAT 99
[2022-11-23] MEDS: FUROSEMIDE 40 MG TABLET 20 MG PO (08:53)
[2022-11-23] MEDS: CHOLESTYRAMINE POWDER 4 GM PO (08:53)
[2022-11-23] MEDS: APIXABAN 5 MG TABLET PO (08:53)
[2022-11-23] MEDS: METOPROLOL TARTRATE 100 MG TABLET 50 MG PO (08:53)
[2022-11-23] MEDS: SERTRALINE 50 MG TABLET PO (08:54)
[2022-11-23] MEDS: LORATADINE 10 MG TABLET PO (08:54)
[2022-11-23] MEDS: SPIRONOLACTONE 25 MG TABLET PO (08:54)
[2022-11-23] MEDS: LACTOBACILLUS ACIDOPHILUS 1 TABLET 1 TAB PO ×2 (08:54→12:02)
[2022-11-23] MEDS: LOPERAMIDE HCL 2 MG CAPSULE PO (08:55)
[2022-11-23 09:02] VITALS: PULSE 72
[2022-11-23] MEDS: DIGOXIN 250 MCG TABLET PO (09:02)
[2022-11-23 09:04] VITALS: O2SAT 97
--- NOTE | 2022-11-23 09:42 | PC.NURSE ---
Respiratory therapist, branch office administrator and I met with resident to discuss discharge home today. Norm is submitting an order to [facility] [employer] for a CPAP machine and the RT with work with the company to obtain the machine at home in the next couple of days. Resident is agreeable stating Norm gave her the option to use a CPAP and does not require a BiPap. Resident will discharge home today with personal belongings, BiPap masks, and medications.
--- NOTE | 2022-11-23 12:54 | PC.SOCIAL ---
Discharge planning- Met with resident to check in and see if she had any further questions for this worker. Resident is ready to discharge home. Resident asks about life alert. Informed that Essence from [facility] will work on getting it into place upon discharge. Received an email from Essence Cameron from [facility]. Essence would like confirmation when resident discharges so she can open resident's EW. Provided update to Essence on discharge. Social work will follow up as needed.
--- NOTE | 2022-11-23 14:09 | PC.NURSE ---
Discharge note: Resident discharged to [address] at 1400 today. All belongings removed from room and sent with resident and staff who are accompanying resident to her apartment. All supply of current medications have been sent with resident.
--- NOTE | 2022-11-23 14:37 | PC.NURSE ---
Recapitulation. Resident has resided in long-term care since 04/23 for rehab and strengthening for a goal to return home. She lost 120lbs and progressed and strengthened at her pace. She underwent a hysterectomy and was found not to have cancer. Today resident was discharged home with home care.
--- NOTE | 2022-11-24 08:03 | PC.NURSE ---
MDS: Quarterly MDS was closed partially completed, resident discharged before completion date.
--- NOTE | 2022-11-24 15:12 | PC.SOCIAL ---
Received a request from [facility] to provide form [id number]. Completed 1503 and faxed to [facility] at [phone] to the attention of Olga Rocha. Social work will follow up as needed.
== END 2022-11-23 14:00 | disposition home or self-care (01) | DRG 421 ==
PROVIDERS: Family Medicine; Admitting Provider Family Medicine; Visit Provider Nurse Practitioner Gerontology
DX: R63.4 Abnormal weight loss (principal); I48.91 Unspecified atrial fibrillation; G47.00 Insomnia, unspecified; R53.1 Weakness; D50.9 Iron deficiency anemia, unspecified; N93.9 Abnormal uterine and vaginal bleeding, unspecified; I89.0 Lymphedema, not elsewhere classified; R19.7 Diarrhea, unspecified
CPT/HCPCS: 36415; 72197; 74183; 80048; 80076; 84132; 85018; 85025; 85610; 87635; 97110; 97112; 97116; 97161; 97162; 97165; 97166; 97530; 97535; A9575

== ENCOUNTER 2022-10-20 12:32 | Outpatient (CLI) | payer BC, SELFPAY | END 2022-10-20 12:33 | disposition home or self-care (01) | LOC: AMB 11-15 11:03 | PROVIDERS: PCP Internal Medicine; Visit Provider Family Medicine | DX: Z99.3 Dependence on wheelchair (principal) | CPT/HCPCS: A0425; A0428 ==

== ENCOUNTER 2022-10-20 14:45 | Outpatient (CLI) | payer BC, SELFPAY | END 2022-10-20 14:46 | disposition home or self-care (01) | LOC: AMB 10-24 19:07 | PROVIDERS: PCP Family Medicine; Visit Provider Family Medicine | DX: Z74.01 Bed confinement status (principal) | CPT/HCPCS: A0425; A0428 ==

== ENCOUNTER 2022-11-18 20:32 | Outpatient (CLI) | payer BC, SELFPAY ==
--- NOTE | 2022-11-24 08:40 | W.PM.SLEEP ---
Sleep Study Details Details Interpreting Provider: Chepe Date of Sleep Study: 11/18/22 Sleep Study Details: STUDY TYPE:? Hospital-based without CPAP ? BMI:? 43.4 ORDERING PROVIDER:Aguilar Mo INDICATION:? Witnessed sleep apnea in the hospital ? SLEEP SUMMARY:? 287.5 minutes sleep time, arousal index 12.5 RESPIRATORY SUMMARY:? AHI is 6.1, RDI 11.1, REM AHI 23. Note the entire study was done supine. Mean oxygen awake 95 asleep 94 minimum 86 3.4 minutes oxygen between 80 and 88% PERIODIC LIMB MOVEMENTS OF SLEEP:? None were noted CARDIAC:? Awake 68, asleep 67. Frequent PACs and if you PVCs were noted IMPRESSION:? Mild obstructive sleep apnea with REM dependency. Note that the entire study was done supine. RECOMMENDATION: If the patient is symptomatic with daytime hypersomnolence treatment options would include AutoSet CPAP, dental appliance, weight loss and/or airway expansion surgery. Would favor AutoSet CPAP.
== END 2022-11-18 20:33 | disposition home or self-care (01) ==
LOC: SLEEP 20:34
PROVIDERS: PCP Internal Medicine; Visit Provider Otolaryngology
DX: G47.33 Obstructive sleep apnea (adult) (pediatric) (principal)
CPT/HCPCS: 95810

== ENCOUNTER 2024-07-20 14:23 | Outpatient (CLI) | payer MEDICARE, SELFPAY | END 2024-07-20 14:24 | disposition home or self-care (01) | PROVIDERS: PCP Internal Medicine; Visit Provider Internal Medicine | DX: I48.20 Chronic atrial fibrillation, unspecified (principal) | CPT/HCPCS: 80053 ==